=== PATIENT | female | born 1975 | race Caucasian/White ===

== ENCOUNTER 2017-10-04 18:04 | Emergency (ER) | payer BC ==
[2017-10-04] MEDS ORDERED: NA CHLORIDE 0.9% 2,000 ML ONE (18:38)
[2017-10-04] MEDS ORDERED: HYDROMORPHONE HCL 1 MG/ML INJ ONE ×2 (18:38→19:29)
[2017-10-04] MEDS ORDERED: ONDANSETRON 4 MG/2 ML VIAL ONE ×2 (18:38→19:29)
[2017-10-04] MEDS ORDERED: FAMOTIDINE 20 MG/2 ML VIAL IV ONE (18:38)
[2017-10-04 19:13] LABS: Urine Blood TRACE (NEG); Urine Glucose NEGATIVE (NEG); Urine Protein NEGATIVE (NEG); Urine Specific Gravity >1.030 (1.005-1.030); Urine pH 5.5 (5.0-7.0)
[2017-10-04 19:14] LABS: ALT/SGPT 50 U/L (12-78); AST/SGOT 36 U/L (15-37); Albumin 3.6 g/dL (3.4-5.0); Alkaline Phosphatase 115 U/L (45-117); Amylase Level 38 U/L (25-115); BUN Blood Urea Nitrogen 9 mg/dL (7-18); Bicarbonate 31 mmol/L (21-32); Bilirubin Direct < 0.1 mg/dL (0-0.2); Bilirubin Total 0.2 mg/dL (0.2-1.0); Glucose Level 98 mg/dL (74-106); Lipase 145 U/L (73-393); Potassium 3.5 mmol/L (3.5-5.1); Protein, Total 7.5 g/dL (6.4-8.2); Sodium Level 139 mmol/L (136-145)
[2017-10-04 19:16] LABS: Urine Amorphous Sediment TRACE /HPF (NONE SEEN); Urine Bacteria <20 /HPF (<20); Urine Culture Reflex Order NOT NEEDED; Urine Mucus SLIGHT /HPF (NONE SEEN); Urine RBC <5 /HPF (NONE SEEN)
[2017-10-04 19:20] LABS: Absolute Lymphocytes (CBC) 3.3 K/uL (0.7-4.9); Absolute Monocytes 0.7 K/uL (0.1-1.3); Basophils % 0.6 % (0-1.3); Eosinophils % 3.4 % (0-4.4); Lymphocytes % 39.5 % (15.3-44.8); MCH 28.2 pg (27.0-35.0); MCV 85.6 fL (80-100); MPV 9.8 fL (7.6-11.3); Monocytes % 8.6 % (3.3-12.3); RBC Red Blood Cell Count 4.09 M/uL (3.86-4.86)
--- NOTE | 2017-10-04 19:33 | EDPHYS ---
Physician Documentation [facility] Name: Misa Tuttle Age: 42 yrs Sex: Female : 1975 Arrival Date: 10/04/2017 Time: 18:06 Bed 18 Private MD: Rafat Rivera C ED Physician Carlos Pradhan HPI: 10/04 18:32 This 42 yrs old Female presents to ER via Ambulatory with complaints of kadeem Abdominal Pain. 18:32 The patient presents with abdominal pain in the epigastric area, in the left upper kadeem quadrant, in the left lower quadrant. Onset: The symptoms/episode began/occurred 3 day(s) ago. The patient presents to the emergency department with nausea, vomiting, abdominal pain, of the epigastric area, left upper quadrant and left lower quadrant. Onset: The symptoms/episode began/occurred 3 day(s) ago. Possible causes: unknown. The symptoms are aggravated by nothing. The symptoms are alleviated by nothing. Associated signs and symptoms: Pertinent positives: abdominal pain, nausea. The symptoms do not radiate. Modifying factors: The symptoms are alleviated by nothing, the symptoms are aggravated by. 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 - Social history:: Smoking status: Patient/guardian denies using tobacco. - Ebola Screening: : Patient negative for fever greater than or equal to 101.5 degrees Fahrenheit, and additional compatible Ebola Virus Disease symptoms Patient denies exposure to infectious person Patient denies travel to an Ebola-affected area in the 21 days before illness onset No symptoms or risks identified at this time. - Family history:: not pertinent. ROS: 18:32 Constitutional: Negative for fever, chills, and weight loss, Eyes: Negative for injury, kadeem pain, redness, and discharge, ENT: Negative for injury, pain, and discharge, Neck: Negative for injury, pain, and swelling, Cardiovascular: Negative for chest pain, palpitations, and edema, Respiratory: Negative for shortness of breath, cough, wheezing, and pleuritic chest pain, Back: Negative for injury and pain, : Negative for injury, bleeding, discharge, and swelling, MS/Extremity: Negative for injury and deformity, Skin: Negative for injury, rash, and discoloration, Neuro: Negative for headache, weakness, numbness, tingling, and seizure. 18:32 Abdomen/GI: Positive for abdominal pain, nausea, vomiting, of the epigastric area, left upper quadrant and left lower quadrant. Exam: 18:32 Constitutional: This is a well developed, well nourished patient who is awake, alert, kadeem and in no acute distress. Head/Face: Normocephalic, atraumatic. Eyes: Pupils equal round and reactive to light, extra-ocular motions intact. Lids and lashes normal. Conjunctiva and sclera are non-icteric and not injected. Cornea within normal limits. Periorbital areas with no swelling, redness, or edema. ENT: Nares patent. No nasal discharge, no septal abnormalities noted. Tympanic membranes are normal and external auditory canals are clear. Oropharynx with no redness, swelling, or masses, exudates, or evidence of obstruction, uvula midline. Mucous membranes moist. Neck: Trachea midline, no thyromegaly or masses palpated, and no cervical lymphadenopathy. Supple, full range of motion without nuchal rigidity, or vertebral point tenderness. No Meningismus. Chest/axilla: Normal chest wall appearance and motion. Nontender with no deformity. No lesions are appreciated. Cardiovascular: Regular rate and rhythm with a normal S1 and S2. No gallops, murmurs, or rubs. Normal PMI, no JVD. No pulse deficits. Respiratory: Lungs have equal breath sounds bilaterally, clear to auscultation and percussion. No rales, rhonchi or wheezes noted. No increased work of breathing, no retractions or nasal flaring. Back: No spinal tenderness. No costovertebral tenderness. Full range of motion. Female : Normal external genitalia. Skin: Warm, dry with normal turgor. Normal color with no rashes, no lesions, and no evidence of cellulitis. MS/ Extremity: Pulses equal, no cyanosis. Neurovascular intact. Full, normal range of motion. Neuro: Awake and alert, GCS 15, oriented to person, place, time, and situation. Cranial nerves II-XII grossly intact. Motor strength 5/5 in all extremities. Sensory grossly intact. Cerebellar exam normal. Normal gait. Psych: Awake, alert, with orientation to person, place and time. Behavior, mood, and affect are within normal limits. 18:32 Abdomen/GI: Inspection: abdomen appears normal, Bowel sounds: normal, Palpation: soft, moderate abdominal tenderness, in the epigastric area and left upper quadrant, Liver: no appreciated palpable abnormalities, Hernia: not appreciated. Vital Signs: 18:09 BP 127 / 88; Pulse 88; Resp 16; Temp 98.2; Pulse Ox 99% on R/A; Weight 74.84 kg; Height aj 5 ft. 4 in. (162.56 cm); 19:14 BP 118 / 73; Pulse 91; Resp 17 S; Pulse Ox 97% on R/A; jd3 20:48 BP 118 / 78; Pulse 83; Resp 17 S; Pulse Ox 97% on R/A; jd3 18:09 Body Mass Index 28.32 (74.84 kg, 162.56 cm) aj MDM: 18:13 [facility]. [facility] 18:37 Data reviewed: vital signs, nurses notes, lab test result(s), radiologic studies, CT kadeem scan. 10/04 18:14 Order name: Amylase, Serum; Complete Time: 19:32 [facility] 10/04 18:14 Order name: Basic Metabolic Panel; Complete Time: 19:32 [facility] 10/04 18:14 Order name: CBC with Diff; Complete Time: 19:32 [facility] 10/04 18:14 Order name: Creatinine for Radiology; Complete Time: 19:32 [facility] 10/04 18:14 Order name: Hepatic Function; Complete Time: 19:32 [facility] 10/04 18:14 Order name: Lipase; Complete Time: 19:32 [facility] 10/04 18:14 Order name: Urine Microscopic Only; Complete Time: 19:32 kadeem 10/04 18:56 Order name: Urine Dipstick--Ancillary (enter results); Complete Time: 19:32 bd 10/04 18:56 Order name: Urine --Ancillary (enter results); Complete Time: 19:32 10/04 18:14 Order name: Urine Test (obtain specimen); Complete Time: 18:47 [facility] 10/04 18:14 Order name: IV Saline Lock; Complete Time: 18:48 [facility] 10/04 18:14 Order name: Labs collected and sent; Complete Time: 18:48 [facility] 10/04 18:14 Order name: Urine Dipstick-Ancillary (obtain specimen); Complete Time: 18:48 [facility] Administered Medications: 18:47 Drug: Dilaudid 1 mg Route: IVP; Site: left antecubital; mg2 19:37 Follow up: Response: No adverse reaction jd3 18:47 Drug: Zofran 4 mg Route: IVP; Site: left antecubital; mg2 19:37 Follow up: Response: No adverse reaction jd3 18:47 Drug: Pepcid 20 mg Route: IVP; Site: left antecubital; mg2 19:37 Follow up: Response: No adverse reaction jd3 18:48 Drug: NS 0.9% 1000 ml Route: IV; Rate: 1 bolus; Site: left antecubital; mg2 19:37 Follow up: Response: No adverse reaction; IV Status: Completed infusion; IV Intake: jd3 1000ml 19:30 Drug: Zofran 4 mg Route: IVP; Site: left antecubital; jd3 20:49 Follow up: Response: No adverse reaction jd3 19:30 Drug: Dilaudid 1 mg Route: IVP; Site: left antecubital; jd3 20:49 Follow up: Response: No adverse reaction; Pain is decreased jd3 19:36 Drug: NS 0.9% 1000 ml Route: IV; Rate: 1 bolus; Site: left antecubital; jd3 20:49 Follow up: Response: No adverse reaction; IV Status: Completed infusion jd3 Disposition: 10/04/17 19:33 Discharged to Home. Impression: Abdominal tenderness. - Condition is Stable. - Discharge Instructions: Abdominal Pain, Adult, Nausea and Vomiting, Adult, Abdominal Pain, Adult, [id number]. - Prescriptions for Bentyl 20 mg Oral Tablet - take 1 tablet by ORAL route every 6 hours As needed; 20 tablet. Pepcid 20 mg Oral Tablet - take 1 tablet by ORAL route every 12 hours for 10 days; 20 tablet. Tylenol- Codeine #3 300-30 mg Oral Tablet - take 2 tablet by ORAL route every 6 hours As needed; 30 tablet. Zofran 4 mg Oral Tablet - take 1 tablet by ORAL route every 12 hours As needed; 20 tablet. - Medication Reconciliation Form, Thank You Letter, Antibiotic Education, Prescription Opioid Use form. - Follow up: A Rivera; When: 2 - 3 days; Reason: Recheck today's complaints, Continuance of care, Re-evaluation by your physician. Follow up: Johnair Huang; When: 2 - 3 days; Reason: Recheck today's complaints, Re-evaluation by your physician. - Problem is new. - Symptoms have improved. Signatures: Dispatcher [employer] EDMS Anjali Barton RN RN Carlos Castanon MD MD cha Davies, Jonathon, RN RN jJose Reynoso RN VINOD mg2 Corrections: (The following items were deleted from the chart) 20:50 19:33 10/04/2017 19:33 Discharged to Home. Impression: Abdominal tenderness. Condition jd3 is Stable. Discharge Instructions: Abdominal Pain, Adult, Nausea and Vomiting, Adult, Abdominal Pain, Adult, [id number]. Prescriptions for Bentyl 20 mg Oral Tablet - take 1 tablet by ORAL route every 6 hours As needed; 20 tablet, Pepcid 20 mg Oral Tablet - take 1 tablet by ORAL route every 12 hours for 10 days; 20 tablet, Tylenol-Codeine #3 300-30 mg Oral Tablet - take 2 tablet by ORAL route every 6 hours As needed; 30 tablet, Zofran 4 mg Oral Tablet - take 1 tablet by ORAL route every 12 hours As needed; 20 tablet. and Forms are Medication Reconciliation Form, Thank You Letter, Antibiotic Education, Prescription Opioid Use. Follow up: A Rivera; When: 2 - 3 days; Reason: Recheck today's complaints, Continuance of care, Re-evaluation by your physician. Follow up: John Huang; When: 2 - 3 days; Reason: Recheck today's complaints, Re-evaluation by your physician. Problem is new. Symptoms have improved. kadeem
--- NOTE | 2017-10-04 19:33 | ER ---
Nurse's Notes [facility] Name: Misa Tuttle Age: 42 yrs Sex: Female : 1975 Arrival Date: 10/04/2017 Time: 18:06 Bed 18 Private MD: Rafat Rivera C Diagnosis: Abdominal tenderness Presentation: 10/04 18:07 Presenting complaint: Patient states: LUQ abdominal pain for 5 days. N/V x 3 episodes aj today. Transition of care: patient was not received from another setting of care. Onset of symptoms was September 29, 2017. Risk Assessment: Do you want to hurt yourself or someone else? Patient reports no desire to harm self or others. Initial Sepsis Screen: Does the patient meet any 2 criteria? No. Patient's initial sepsis screen is negative. Does the patient have a suspected source of infection? No. Patient's initial sepsis screen is negative. Care prior to arrival: None. 18:07 Method Of Arrival: Ambulatory aj 18:07 Acuity: ELADIO 3 aj Triage Assessment: 18:09 General: Appears in no apparent distress. uncomfortable, Behavior is calm, cooperative, aj appropriate for age. Pain: Complains of pain in right upper quadrant and left upper quadrant. Neuro: Level of Consciousness is awake, alert, obeys commands, Oriented to person, place, time, situation, Appropriate for age. Respiratory: Airway is patent Respiratory effort is even, unlabored, Respiratory pattern is regular, symmetrical. GI: Reports upper abdominal pain, nausea, vomiting. Derm: Skin is intact, is healthy with good turgor, Skin is pink, warm \T\ dry. normal. 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 - Social history:: Smoking status: Patient/guardian denies using tobacco. - Ebola Screening: : Patient negative for fever greater than or equal to 101.5 degrees Fahrenheit, and additional compatible Ebola Virus Disease symptoms Patient denies exposure to infectious person Patient denies travel to an Ebola-affected area in the 21 days before illness onset No symptoms or risks identified at this time. - Family history:: not pertinent. Screenin:37 Abuse screen: Denies threats or abuse. Denies injuries from another. Nutritional mg2 screening: No deficits noted. Tuberculosis screening: No symptoms or risk factors identified. Fall Risk IV access (20 points). Assessment: 18:48 General: Appears uncomfortable, Behavior is calm, cooperative. Pain: Complains of pain mg2 in epigastric area and abdomen Pain does not radiate. Pain currently is 10 out of 10 on a pain scale. Quality of pain is described as aching, Pain began gradually, Is intermittent. Neuro: Level of Consciousness is awake, alert, obeys commands, Oriented to person, place, time, situation. Cardiovascular: Capillary refill < 3 seconds Patient's skin is warm and dry. Respiratory: Airway is patent Respiratory effort is even, unlabored, Respiratory pattern is regular, symmetrical. GI: Abdomen is round. : No signs and/or symptoms were reported regarding the genitourinary system. EENT: No signs and/or symptoms were reported regarding the EENT system. Derm: Skin is intact, Skin is pink, warm \T\ dry. normal. Musculoskeletal: No signs and/or symptoms reported regarding the musculoskeletal system. 19:15 Reassessment: Patient appears in no apparent distress at this time. No changes from jd3 previously documented assessment. Patient and/or family updated on plan of care and expected duration. Pain level reassessed. Patient is alert, oriented x 3, equal unlabored respirations, skin warm/dry/pink. 19:15 GI: Bowel sounds present X 4 quads. Abd is soft Abdomen is tender to palpation. jd3 19:44 Reassessment: Patient appears in no apparent distress at this time. No changes from jd3 previously documented assessment. Patient and/or family updated on plan of care and expected duration. Pain level reassessed. Patient is alert, oriented x 3, equal unlabored respirations, skin warm/dry/pink. waiting for fluids to infuse before pt is discharged. 20:47 Reassessment: Patient appears in no apparent distress at this time. Patient and/or jd3 family updated on plan of care and expected duration. Pain level reassessed. Patient is alert, oriented x 3, equal unlabored respirations, skin warm/dry/pink. Patient states feeling better. Vital Signs: 18:09 BP 127 / 88; Pulse 88; Resp 16; Temp 98.2; Pulse Ox 99% on R/A; Weight 74.84 kg; Height aj 5 ft. 4 in. (162.56 cm); 19:14 BP 118 / 73; Pulse 91; Resp 17 S; Pulse Ox 97% on R/A; jd3 20:48 BP 118 / 78; Pulse 83; Resp 17 S; Pulse Ox 97% on R/A; jd3 18:09 Body Mass Index 28.32 (74.84 kg, 162.56 cm) ED Course: 18:06 Patient arrived in ED. mr 18:06 Rafat Rivera MD is Private Physician. mr 18:08 Triage completed. aj 18:09 Arm band placed on right wrist. Patient placed in an exam room. 18:12 Carlos Pradhan MD is Attending Physician. [facility] 18:30 Jose Desai RN is Primary Nurse. mg2 18:46 Initial lab(s) drawn, by ne, sent to lab. Urine collected: clean catch specimen, silvino mh5 colored. Inserted saline lock: 20 gauge in left antecubital area, using aseptic technique. Blood collected. 18:47 Amylase, Serum Sent. 5 18:47 Basic Metabolic Panel Sent. 5 18:47 CBC with Diff Sent. 5 18:47 Creatinine for Radiology Sent. 5 18:47 Hepatic Function Sent. 5 18:47 Lipase Sent. 5 18:48 Urine Microscopic Only Sent. [facility] 19:32 Rafat Rivera MD is Referral Physician. [facility] 19:32 John Huang MD is Referral Physician. kadeem 19:45 Patient has correct armband on for positive identification. Bed in low position. Call jd3 light in reach. Side rails up X 1. 20:48 No provider procedures requiring assistance completed. IV discontinued, intact, jd3 bleeding controlled, No redness/swelling at site. Pressure dressing applied. Administered Medications: 18:47 Drug: Dilaudid 1 mg Route: IVP; Site: left antecubital; mg2 19:37 Follow up: Response: No adverse reaction jd3 18:47 Drug: Zofran 4 mg Route: IVP; Site: left antecubital; mg2 19:37 Follow up: Response: No adverse reaction jd3 18:47 Drug: Pepcid 20 mg Route: IVP; Site: left antecubital; mg2 19:37 Follow up: Response: No adverse reaction jd3 18:48 Drug: NS 0.9% 1000 ml Route: IV; Rate: 1 bolus; Site: left antecubital; mg2 19:37 Follow up: Response: No adverse reaction; IV Status: Completed infusion; IV Intake: jd3 1000ml 19:30 Drug: Zofran 4 mg Route: IVP; Site: left antecubital; jd3 20:49 Follow up: Response: No adverse reaction jd3 19:30 Drug: Dilaudid 1 mg Route: IVP; Site: left antecubital; jd3 20:49 Follow up: Response: No adverse reaction; Pain is decreased jd3 19:36 Drug: NS 0.9% 1000 ml Route: IV; Rate: 1 bolus; Site: left antecubital; jd3 20:49 Follow up: Response: No adverse reaction; IV Status: Completed infusion jd3 Intake: 19:37 IV: 1000ml; Total: 1000ml. jd3 Outcome: 19:33 Discharge ordered by MD. quan 20:49 Discharged to home ambulatory. jd3 20:49 Condition: stable 20:49 Discharge instructions given to patient, Instructed on discharge instructions, follow up and referral plans. medication usage, Demonstrated understanding of instructions, follow-up care, medications, Prescriptions given X 4. 20:50 Patient left the ED. jd3 Signatures: Anjali Barton RN RN aj Anderson, Corey, MD MD cha Rivera, Maria mr Martinez, Maria mh5 Davies, Jonathon, RN RN jJose Reynoso RN RN mg2
[2017-10-04 21:13] VITALS: TEMP 98.2
[2017-10-04 21:14] VITALS: O2SAT 97
[2017-10-04 21:15] VITALS: BP 118/78
== END 2017-10-04 20:50 | disposition home or self-care (01) ==
LOC: ER 18:04
DX: R10.819 Abdominal tenderness, unspecified site (principal); Z88.5 Allergy status to narcotic agent; I10 Essential (primary) hypertension; K21.9 Gastro-esophageal reflux disease without esophagitis; K85.90 Acute pancreatitis without necrosis or infection, unspecified
CPT/HCPCS: 36415; 80048; 80076; 81003; 81015; 81025; 82150; 83690; 85025; 96361; 96374; 96375; 99284; J1170; J2405; J7030

== ENCOUNTER 2017-10-27 08:44 | Emergency (ER) | payer BC ==
[2017-10-27] MEDS ORDERED: HYDROMORPHONE HCL 1 MG/ML INJ ONE (09:30)
[2017-10-27] MEDS ORDERED: NA CHLORIDE 0.9% 1,000 ML ONE (09:30)
[2017-10-27] MEDS ORDERED: ONDANSETRON 4 MG/2 ML VIAL ONE (09:30)
[2017-10-27] MEDS ORDERED: FAMOTIDINE 20 MG/2 ML VIAL IV ONE (09:31)
--- NOTE | 2017-10-27 09:44 | RAD REPORT ---
EXAM DESCRIPTION: RAD - Chest Single View - 10/27/2017 9:29 am CLINICAL HISTORY: ABDOMINAL DISTENTION Chest pain. COMPARISON: Abdomen Acute Series dated 10/15/2016; Abdomen 1 View (KUB) dated 10/02/2016; Abdomen 1 Vi ew (KUB) dated 07/01/2016; Chest Single View dated 04/22/2016 FINDINGS: Portable technique limits examination quality. The lungs are grossly clear. The heart is normal in size. No displaced fractures. IMPRESSION: No acute intrathoracic process suspected.
[2017-10-27 10:56] LABS: Absolute Lymphocytes (CBC) 3.3 K/uL (0.7-4.9); Absolute Monocytes 0.9 K/uL (0.1-1.3); Absolute Neutrophil 5.8 K/uL (1.8-8.0); Basophils % 0.4 % (0-1.3); Eosinophils % 3.1 % (0-4.4); Hematocrit 34.4 % (36.0-45.0); MCH 29.1 pg (27.0-35.0); MPV 9.6 fL (7.6-11.3); Monocytes % 8.9 % (3.3-12.3)
--- NOTE | 2017-10-27 11:00 | EKG ---
Test Date: 2017-10-27 Test Time: 09:33:44 [employer] Drier: REGINALDO MEASUREMENT RESULTS: Intervals: Rate: 85 ID: [id number] QRSD: 92 QT: 380 QTc: 452 [place]: P: 30 ID: [id number] QRS: 26 T: 15 INTERPRETIVE STATEMENTS: Normal sinus rhythm Normal ECG Compared to ECG 09/10/2016 18:15:10 No significant changes Electronically Signed On 10-27-17 10:59:42 CDT by Kj Barker
[2017-10-27 11:08] LABS: Protime INR 1.01
[2017-10-27 11:17] LABS: ALT/SGPT 35 U/L (12-78); AST/SGOT 18 U/L (15-37); Albumin 3.4 g/dL (3.4-5.0); Alkaline Phosphatase 108 U/L (45-117); BUN Blood Urea Nitrogen 6 mg/dL (7-18); Bicarbonate 32 mmol/L (21-32); Bilirubin Direct < 0.1 mg/dL (0-0.2); Bilirubin Total 0.3 mg/dL (0.2-1.0); CKMB Creatine Kinase MB < 1.0 ng/mL (0.3-3.6); Creatine Phosphokinase 81 U/L (26-192); Glucose Level 93 mg/dL (74-106); Lipase 130 U/L (73-393); NT PRO-BNP 12 pg/mL (<125); Potassium 3.6 mmol/L (3.5-5.1); Protein, Total 7.5 g/dL (6.4-8.2); Sodium Level 143 mmol/L (136-145); Troponin (Emerg Dept Use Only) < 0.02 ng/mL (0.0-0.045)
[2017-10-27] MEDS ORDERED: HYDROMORPHONE HCL 0.5 MG/0.5 ML INJ ONE (11:35)
[2017-10-27] MEDS ORDERED: DIPHENHYDRAMINE 50 MG/ML VIAL ONE (12:02)
--- NOTE | 2017-10-27 12:16 | RAD REPORT ---
EXAM DESCRIPTION: CTAbdomen Pelvis W Contrast - 10/27/2017 11:44 am CLINICAL HISTORY: Abdominal pain. ABD PAIN COMPARISON: Abdomen Pelvis W Contrast dated 06/08/2016; Abdomen Pelvis W Contrast dated 04/22/2016; Abdomen Pelvis W Contrast dated 10/20/2015; Abdomen Pelvis W Contrast dated 09/13/2015 TECHNIQUE: Biphasic CT imaging of the abdomen and pelvis was performed with 100 ml non-ionic IV cont rast. All CT scans are performed using dose optimization technique as appropriate and may include automated exposure control or mA/KV adjustment according to patient size. FINDINGS: The lung bases are clear. Diffuse fatty liver is present. Cholecystectomy clips are seen. Subtle diffuse fatty infiltration of the pancreas. The spleen, adrenal glands and kidneys are unremarkable. No bowel obstruction, free air, free fluid or abscess. The appendix is normal. No evidence of signi ficant lymphadenopathy. No suspicious bony findings. IMPRESSION: Mild fatty liver. Fatty infiltration of the pancreas.
--- NOTE | 2017-10-27 12:21 | EDPHYS ---
Physician Documentation [facility] Name: Misa Tuttle Age: 42 yrs Sex: Female : 1975 Arrival Date: 10/27/2017 Time: 08:48 Bed 19 Private MD: Arden Flores E ED Physician Carlos Pradhan HPI: 10/27 12:01 This 42 yrs old Female presents to ER via Ambulatory with complaints of kadeem Abdominal Pain, Bloody Stools. 12:01 The patient presents with abdominal pain. Onset: The symptoms/episode began/occurred kadeem yesterday. The patient presents to the emergency department with rectal bleeding, black. Onset: The symptoms/episode began/occurred 2 day(s) ago. Abdominal pain: none is appreciated. Modifying factors: The symptoms are alleviated by remaining still, the symptoms are aggravated by nothing. Associated signs and symptoms: The patient has no apparent associated signs or symptoms. Associated signs and symptoms: none. 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 - Social history:: Smoking status: Patient/guardian denies using tobacco. - Ebola Screening: : Patient negative for fever greater than or equal to 101.5 degrees Fahrenheit, and additional compatible Ebola Virus Disease symptoms Patient denies exposure to infectious person Patient denies travel to an Ebola-affected area in the 21 days before illness onset No symptoms or risks identified at this time. - Family history:: not pertinent. ROS: 12:01 Constitutional: Negative for fever, chills, and weight loss, Eyes: Negative for injury, kadeem pain, redness, and discharge, ENT: Negative for injury, pain, and discharge, Neck: Negative for injury, pain, and swelling, Cardiovascular: Negative for chest pain, palpitations, and edema, Respiratory: Negative for shortness of breath, cough, wheezing, and pleuritic chest pain, Back: Negative for injury and pain, : Negative for injury, bleeding, discharge, and swelling, MS/Extremity: Negative for injury and deformity, Skin: Negative for injury, rash, and discoloration, Neuro: Negative for headache, weakness, numbness, tingling, and seizure, Psych: Negative for depression, anxiety, suicide ideation, homicidal ideation, and hallucinations, Allergy/Immunology: Negative for hives, rash, and allergies, Endocrine: Negative for neck swelling, polydipsia, polyuria, polyphagia, and marked weight changes. 12:01 Abdomen/GI: Positive for abdominal pain, abdominal cramps, of the right upper quadrant, left upper quadrant, right lower quadrant and left lower quadrant. Exam: 12:01 Constitutional: This is a well developed, well nourished patient who is awake, alert, kadeem and in no acute distress. Head/Face: Normocephalic, atraumatic. Eyes: Pupils equal round and reactive to light, extra-ocular motions intact. Lids and lashes normal. Conjunctiva and sclera are non-icteric and not injected. Cornea within normal limits. Periorbital areas with no swelling, redness, or edema. ENT: Nares patent. No nasal discharge, no septal abnormalities noted. Tympanic membranes are normal and external auditory canals are clear. Oropharynx with no redness, swelling, or masses, exudates, or evidence of obstruction, uvula midline. Mucous membranes moist. Neck: Trachea midline, no thyromegaly or masses palpated, and no cervical lymphadenopathy. Supple, full range of motion without nuchal rigidity, or vertebral point tenderness. No Meningismus. Chest/axilla: Normal chest wall appearance and motion. Nontender with no deformity. No lesions are appreciated. Cardiovascular: Regular rate and rhythm with a normal S1 and S2. No gallops, murmurs, or rubs. Normal PMI, no JVD. No pulse deficits. Respiratory: Lungs have equal breath sounds bilaterally, clear to auscultation and percussion. No rales, rhonchi or wheezes noted. No increased work of breathing, no retractions or nasal flaring. Back: No spinal tenderness. No costovertebral tenderness. Full range of motion. Female : Normal external genitalia. Skin: Warm, dry with normal turgor. Normal color with no rashes, no lesions, and no evidence of cellulitis. MS/ Extremity: Pulses equal, no cyanosis. Neurovascular intact. Full, normal range of motion. Neuro: Awake and alert, GCS 15, oriented to person, place, time, and situation. Cranial nerves II-XII grossly intact. Motor strength 5/5 in all extremities. Sensory grossly intact. Cerebellar exam normal. Normal gait. Psych: Awake, alert, with orientation to person, place and time. Behavior, mood, and affect are within normal limits. 12:01 Abdomen/GI: Rectal exam: is unremarkable, rectal tone normal, Stool: guaiac negative, hemorrhoid(s), are not appreciated, mass, is not appreciated, swelling, is not appreciated, tenderness, is not appreciated. 12:17 Musculoskeletal/extremity: Exam is negative for Extremities: ROM: no acute changes, kadeem Circulation is intact in all extremities. Compartment Syndrome exam of affected extremity: is normal. DVT Exam: No signs of deep vein thrombosis. no pain, no swelling, no tenderness, negative Homans' sign noted on exam, no appreciated bluish discoloration, no erythema, no increased warmth. 12:25 Skin: injury, scratches in the perirectal areas, fingernail done it appears. [facility] Vital Signs: 09:11 BP 134 / 92; Pulse 94; Resp 16; Pulse Ox 96% on R/A; Weight 74.84 kg; Height 5 ft. 4 iw in. (162.56 cm); Pain 9/10; 09:45 BP 115 / 81; Pulse 72; Resp 18; Pulse Ox 100% ; sv 10:32 BP 131 / 87; Pulse 75; Resp 18; Pulse Ox 100% ; sv 11:23 BP 126 / 87; Pulse 86; Resp 18; Pulse Ox 98% ; sv 12:09 BP 125 / 82; Pulse 82; Resp 16; Pulse Ox 97% ; sv 13:00 BP 115 / 81; Pulse 77; Resp 18; Pulse Ox 100% ; sv 09:11 Body Mass Index 28.32 (74.84 kg, 162.56 cm) iw MDM: 09:08 Patient medically screened. [facility] 12:01 Data reviewed: vital signs, nurses notes, lab test result(s), EKG, radiologic studies, [facility] CT scan. 10/27 09:14 Order name: Basic Metabolic Panel; Complete Time: 11:43 [facility] 10/27 09:14 Order name: CBC with Diff; Complete Time: 11:43 [facility] 10/27 09:14 Order name: Ckmb; Complete Time: 11:43 [facility] 10/27 09:14 Order name: CPK; Complete Time: 11:43 [facility] 10/27 09:14 Order name: LFT's; Complete Time: 11:43 [facility] 10/27 09:14 Order name: Magnesium; Complete Time: 11:43 [facility] 10/27 09:14 Order name: NT PRO-BNP; Complete Time: 11:43 [facility] 10/27 09:14 Order name: PT-INR; Complete Time: 11:43 [facility] 10/27 09:14 Order name: Ptt, Activated; Complete Time: 11:43 [facility] 10/27 09:14 Order name: Troponin (emerg Dept Use Only); Complete Time: 11:43 [facility] 10/27 09:14 Order name: XRAY Chest (1 view); Complete Time: 11:43 [facility] 10/27 09:14 Order name: Lipase; Complete Time: 11:43 [facility] 10/27 10:55 Order name: Urine Dipstick--Ancillary (enter results) 10/27 11:59 Order name: Occult Blood--Ancillary bd 10/27 09:14 Order name: EKG; Complete Time: 09:15 [facility] 10/27 09:14 Order name: EKG - Nurse/Tech; Complete Time: 10:37 [facility] 10/27 09:14 Order name: IV Saline Lock; Complete Time: 10:38 [facility] 10/27 09:14 Order name: Labs collected and sent; Complete Time: 10:38 [facility] 10/27 09:14 Order name: O2 Per Protocol; Complete Time: 10:38 [facility] 10/27 09:14 Order name: O2 Sat Monitoring; Complete Time: 10:38 [facility] 10/27 09:14 Order name: CT Abd/Pelvis - W/Contrast; Complete Time: 12:20 [facility] 10/27 10:18 Order name: Labs - recollect needed; Complete Time: 10:37 bd Administered Medications: 09:35 Drug: NS 0.9% 1000 ml Route: IV; Rate: 1 bolus; Site: left antecubital; sv 09:35 Drug: Zofran 4 mg Route: IVP; Site: left antecubital; sv 10:00 Follow up: Response: No adverse reaction sv 09:37 Drug: Dilaudid 1 mg Route: IVP; Site: left antecubital; sv 10:00 Follow up: Response: No adverse reaction sv 09:39 Drug: Pepcid 20 mg Route: IVP; Site: left antecubital; sv 10:00 Follow up: Response: No adverse reaction sv 11:35 Drug: Dilaudid 0.5 mg Route: IVP; Site: left antecubital; sv 12:00 Drug: Benadryl 25 mg Route: IVP; Site: left antecubital; sv Disposition: 10/27/17 12:20 Discharged to Home. Impression: Abdominal tenderness, Gastrointestinal hemorrhage, unspecified. - Condition is Stable. - Discharge Instructions: Abdominal Pain, Adult, Gastritis, Adult, Gastritis, Adult, [id number], Abdominal Pain, Adult, Kpiy-[id number]. - Prescriptions for Bentyl 20 mg Oral Tablet - take 1 tablet by ORAL route every 6 hours As needed; 20 tablet. Protonix 40 mg Oral Tablet - take 1 tablet by ORAL route once daily; 30 tablet. Zofran 4 mg Oral Tablet - take 1 tablet by ORAL route every 12 hours As needed; 20 tablet. Tylenol- Codeine #3 300-30 mg Oral Tablet - take 2 tablets by ORAL route every 6 hours As needed; 20 tablet. - Work release form, Medication Reconciliation Form, Thank You Letter, Antibiotic Education, Prescription Opioid Use form. - Follow up: Arden Flores; When: 2 - 3 days; Reason: Recheck today's complaints, Continuance of care, Re-evaluation by your physician. Follow up: John Huang; When: 1 - 2 days; Reason: Recheck today's complaints, Continuance of care, Re-evaluation by your physician. - Problem is new. - Symptoms have improved. Signatures: Dispatcher [employer] EDMS Salome Camacho Stephanie, RN RN sv Anderson, Corey, MD MD cha Williams, Irene, RN RN iw Corrections: (The following items were deleted from the chart) 12:24 12:20 10/27/2017 12:20 Discharged to Home. Impression: Abdominal tenderness. Condition kadeem is Stable. Discharge Instructions: Abdominal Pain, Adult, Gastritis, Adult, Gastritis, Adult, [id number], Abdominal Pain, Adult, [id number]-[id number]. Prescriptions for Bentyl 20 mg Oral Tablet - take 1 tablet by ORAL route every 6 hours As needed; 20 tablet, Protonix 40 mg Oral Tablet - take 1 tablet by ORAL route once daily; 30 tablet, Zofran 4 mg Oral Tablet - take 1 tablet by ORAL route every 12 hours As needed; 20 tablet. and Forms are Medication Reconciliation Form, Thank You Letter, Antibiotic Education, Prescription Opioid Use. Follow up: Arden Flores; When: 2 - 3 days; Reason: Recheck today's complaints, Continuance of care, Re-evaluation by your physician. Follow up: John Huang; When: 1 - 2 days; Reason: Recheck today's complaints, Continuance of care, Re-evaluation by your physician. Problem is new. Symptoms have improved. [facility] 13:06 12:24 10/27/2017 12:20 Discharged to Home. Impression: Abdominal tenderness; sv Gastrointestinal hemorrhage, unspecified. Condition is Stable. Discharge Instructions: Abdominal Pain, Adult, Gastritis, Adult, Gastritis, Adult, [id number], Abdominal Pain, Adult, Omxp-yx-[id number]. Prescriptions for Bentyl 20 mg Oral Tablet - take 1 tablet by ORAL route every 6 hours As needed; 20 tablet, Protonix 40 mg Oral Tablet - take 1 tablet by ORAL route once daily; 30 tablet, Zofran 4 mg Oral Tablet - take 1 tablet by ORAL route every 12 hours As needed; 20 tablet. and Forms are Medication Reconciliation Form, Thank You Letter, Antibiotic Education, Prescription Opioid Use. Follow up: Arden Flores; When: 2 - 3 days; Reason: Recheck today's complaints, Continuance of care, Re-evaluation by your physician. Follow up: John Huang; When: 1 - 2 days; Reason: Recheck today's complaints, Continuance of care, Re-evaluation by your physician. Problem is new. Symptoms have improved. kadeem
--- NOTE | 2017-10-27 12:21 | ER ---
Nurse's Notes [facility] Name: Misa Tuttel Age: 42 yrs Sex: Female : 1975 Arrival Date: 10/27/2017 Time: 08:48 Bed 19 Private MD: Arden Flores E Diagnosis: Abdominal tenderness;Gastrointestinal hemorrhage, unspecified Presentation: 10/27 09:09 Presenting complaint: Patient states: RUQ pain, under rib cage started X 2 days, also iw has black, tarry stool X 2 days. Transition of care: patient was not received from another setting of care. Onset of symptoms was October 25, 2017. Risk Assessment: Do you want to hurt yourself or someone else? Patient reports no desire to harm self or others. Initial Sepsis Screen: Does the patient meet any 2 criteria? No. Patient's initial sepsis screen is negative. Does the patient have a suspected source of infection? No. Patient's initial sepsis screen is negative. Care prior to arrival: None. 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 - Social history:: Smoking status: Patient/guardian denies using tobacco. - Ebola Screening: : Patient negative for fever greater than or equal to 101.5 degrees Fahrenheit, and additional compatible Ebola Virus Disease symptoms Patient denies exposure to infectious person Patient denies travel to an Ebola-affected area in the 21 days before illness onset No symptoms or risks identified at this time. - Family history:: not pertinent. Screenin:30 Abuse screen: Denies threats or abuse. Denies injuries from another. Nutritional sv screening: No deficits noted. Tuberculosis screening: No symptoms or risk factors identified. Fall Risk None identified. Assessment: 09:25 General: Appears in no apparent distress. uncomfortable, well developed, Behavior is sv calm, cooperative, appropriate for age. Pain: Complains of pain in right upper quadrant Pain currently is 9 out of 10 on a pain scale. Quality of pain is described as sharp, Pain began 2-3 days ago. Is continuous. 09:25 Neuro: Level of Consciousness is awake, alert, obeys commands, Oriented to person, sv place, time, situation, Gait is steady, Speech is normal. Respiratory: Respiratory effort is even, unlabored, Respiratory pattern is regular, symmetrical. GI: Abdomen is flat, Reports upper abdominal pain, bloody stool, nausea. Derm: Skin is pink, warm \T\ dry. 11:35 Reassessment: Patient appears in no apparent distress at this time. No changes from sv previously documented assessment. Patient and/or family updated on plan of care and expected duration. Pain level reassessed. Patient is alert, oriented x 3, equal unlabored respirations, skin warm/dry/pink. 11:50 Reassessment: Informed Dr Pradhan that pt was c/o itching after the CT. sv 13:05 Reassessment: Patient appears in no apparent distress at this time. No changes from sv previously documented assessment. Patient and/or family updated on plan of care and expected duration. Pain level reassessed. Patient is alert, oriented x 3, equal unlabored respirations, skin warm/dry/pink. Vital Signs: 09:11 BP 134 / 92; Pulse 94; Resp 16; Pulse Ox 96% on R/A; Weight 74.84 kg; Height 5 ft. 4 iw in. (162.56 cm); Pain 9/10; 09:45 BP 115 / 81; Pulse 72; Resp 18; Pulse Ox 100% ; sv 10:32 BP 131 / 87; Pulse 75; Resp 18; Pulse Ox 100% ; sv 11:23 BP 126 / 87; Pulse 86; Resp 18; Pulse Ox 98% ; sv 12:09 BP 125 / 82; Pulse 82; Resp 16; Pulse Ox 97% ; sv 13:00 BP 115 / 81; Pulse 77; Resp 18; Pulse Ox 100% ; sv 09:11 Body Mass Index 28.32 (74.84 kg, 162.56 cm) iw ED Course: 08:48 Patient arrived in ED. mr 08:49 Arden Flores MD is Private Physician. mr 09:07 Carlos Pradhan MD is Attending Physician. kadeem 09:10 Triage completed. iw 09:11 Arm band placed on. iw 09:22 Kera Galarza, VINOD is Primary Nurse. sv 09:29 X-ray completed. Portable x-ray completed in exam room. jr1 09:30 XRAY Chest (1 view) In Process Unspecified. EDMS 09:30 Patient has correct armband on for positive identification. Placed in gown. Bed in low sv position. Adult w/ patient. Pulse ox on. NIBP on. Door closed. Warm blanket given. Head of bed elevated. 09:30 Initial lab(s) drawn, by me, sent to lab. Inserted saline lock: 20 gauge in left sv antecubital area, using aseptic technique. Blood collected. Flushed left antecubital with 5 ml normal saline. 09:42 EKG done, by development technologist. reviewed by Carlos Pradhan MD. at1 10:34 Urine collected: clean catch specimen, clear. mh5 11:13 Radiology exam delayed due to lab results not completed at this time. (BUN/Creatinine). vr 11:[address] via wheelchair. sv 11:44 CT Abd/Pelvis - W/Contrast In Process Unspecified. EDMS 12:20 Arden Flores MD is Referral Physician. kadeem 12:20 John Huang MD is Referral Physician. kadeem 12:49 IV discontinued, Pressure dressing applied. mh5 12:49 IV discontinued, intact, bleeding controlled, No redness/swelling at site. Pressure sv dressing applied. 13:04 No provider procedures requiring assistance completed. sv Administered Medications: 09:35 Drug: NS 0.9% 1000 ml Route: IV; Rate: 1 bolus; Site: left antecubital; sv 09:35 Drug: Zofran 4 mg Route: IVP; Site: left antecubital; sv 10:00 Follow up: Response: No adverse reaction sv 09:37 Drug: Dilaudid 1 mg Route: IVP; Site: left antecubital; sv 10:00 Follow up: Response: No adverse reaction sv 09:39 Drug: Pepcid 20 mg Route: IVP; Site: left antecubital; sv 10:00 Follow up: Response: No adverse reaction sv 11:35 Drug: Dilaudid 0.5 mg Route: IVP; Site: left antecubital; sv 12:00 Drug: Benadryl 25 mg Route: IVP; Site: left antecubital; sv Outcome: 12:20 Discharge ordered by . kadeem 13:05 Discharged to home ambulatory, with family. sv 13:05 Condition: stable 13:05 Discharge instructions given to patient, Instructed on discharge instructions, follow up and referral plans. medication usage, Demonstrated understanding of instructions, follow-up care, medications, Prescriptions given X 4. 13:06 Patient left the ED. sv Signatures: Dispatcher [employer] Kera Ramírez RN RN sv Anderson, Corey, MD MD cha Rivera, Komal mr Daisy, Candace jr1 Hilda Chairez RN RN iw Davis, Victoria vr Gonzales, Amanda, sales and distribution clerk EKG [facility]1 Komal Martinez [facility] Corrections: (The following items were deleted from the chart) 14:41 09:25 Pain: Complains of pain in right upper quadrant Pain currently is 9 out of 10 on sv a pain scale. sv
[2017-10-27 12:23] LABS: Urine Blood TRACE (NEG); Urine Glucose NEGATIVE (NEG); Urine Protein NEGATIVE (NEG); Urine Specific Gravity <1.005 (1.005-1.030); Urine pH 5.5 (5.0-7.0)
[2017-10-27 13:28] VITALS: BP 125/82; O2SAT 97
== END 2017-10-27 13:06 | disposition home or self-care (01) ==
LOC: ER 08:44
DX: K92.2 Gastrointestinal hemorrhage, unspecified (principal); I10 Essential (primary) hypertension; K21.9 Gastro-esophageal reflux disease without esophagitis; Z88.5 Allergy status to narcotic agent
CPT/HCPCS: 36415; 71045; 74177; 80048; 80076; 81003; 82272; 82550; 82553; 83690; 83735; 83880; 84484; 85025; 85610; 85730; 93005; 96374; 96375; 99285; J1170; J2405; J7030; Q9967

== ENCOUNTER 2018-05-30 12:36 | Emergency (ER) | payer BC ==
[2018-05-30] MEDS ORDERED: METOCLOPRAMIDE 10 MG/2mL INJ ONE (13:13)
[2018-05-30] MEDS ORDERED: FAMOTIDINE 20 MG/2 ML VIAL IV ONE (13:13)
[2018-05-30] MEDS ORDERED: NA CHLORIDE 0.9% 1,000 ML ONE (13:13)
[2018-05-30 13:25] LABS: Urine Blood TRACE (NEG); Urine Glucose NEGATIVE (NEG); Urine Protein NEGATIVE (NEG); Urine pH 6.5 (5.0-7.0)
[2018-05-30 13:29] LABS: Absolute Lymphocytes (CBC) 2.8 K/uL (0.7-4.9); Absolute Monocytes 0.6 K/uL (0.1-1.3); Absolute Neutrophil 3.2 K/uL (1.8-8.0); Basophils % 0.5 % (0-1.3); Eosinophils % 3.2 % (0-4.4); Hematocrit 37.7 % (36.0-45.0); Lymphocytes % 40.9 % (15.3-44.8); MPV 9.8 fL (7.6-11.3); Monocytes % 8.3 % (3.3-12.3); RBC Red Blood Cell Count 4.19 M/uL (3.86-4.86)
[2018-05-30 13:52] LABS: Albumin 3.7 g/dL (3.4-5.0); Bilirubin Direct 0.1 mg/dL (0-0.2); Bilirubin Total 0.4 mg/dL (0.2-1.0); Potassium 3.6 mmol/L (3.5-5.1); Protein, Total 7.6 g/dL (6.4-8.2)
[2018-05-30] MEDS ORDERED: HYDROMORPHONE HCL 1 MG/ML INJ ONE ×2 (14:32→15:49)
--- NOTE | 2018-05-30 15:11 | ER ---
Nurse's Notes [facility] Name: Misa Tuttle Age: 42 yrs Sex: Female : 1975 Arrival Date: 05/30/2018 Time: 12:38 Bed 16 Private MD: Rafat Rivera C Diagnosis: Vomiting;Abdominal tenderness;Gastroparesis Presentation: 05/30 12:42 Presenting complaint: Patient states: upper abd pain and nausea since . Pt aa5 denies diarrhea. Transition of care: patient was not received from another setting of care. Onset of symptoms was May 2018. Risk Assessment: Do you want to hurt yourself or someone else? Patient reports no desire to harm self or others. Initial Sepsis Screen: Does the patient meet any 2 criteria? No. Patient's initial sepsis screen is negative. Does the patient have a suspected source of infection? No. Patient's initial sepsis screen is negative. Care prior to arrival: None. 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 - Social history:: Smoking status: Patient/guardian denies using tobacco. - Ebola Screening: : No symptoms or risks identified at this time. - Family history:: not pertinent. Assessment: 13:15 General: Appears in no apparent distress. uncomfortable, Behavior is cooperative, jl7 anxious. Pain: Complains of pain in epigastric area Pain currently is 9 out of 10 on a pain scale. Neuro: Level of Consciousness is awake, alert, obeys commands, Oriented to person, place, time, situation. Cardiovascular: Patient's skin is warm and dry. Respiratory: Airway is patent Respiratory effort is even, unlabored, Respiratory pattern is regular, symmetrical. GI: Abdomen is round non-distended, Reports upper abdominal pain. : No signs and/or symptoms were reported regarding the genitourinary system. EENT: No signs and/or symptoms were reported regarding the EENT system. Derm: Skin is pink, warm \T\ dry. 14:00 Reassessment: Pt reports increased pain, ERD notified and will be to see the pt. Pt jl7 updated. 15:00 Reassessment: Patient appears in no apparent distress at this time. No changes from jl7 previously documented assessment. Patient and/or family updated on plan of care and expected duration. Pain level reassessed. Patient is alert, oriented x 3, equal unlabored respirations, skin warm/dry/pink. Vital Signs: 12:43 BP 129 / 83; Pulse 78; Resp 16 S; Temp 98.7(TE); Pulse Ox 97% on R/A; Weight 79.38 kg aa5 (R); Height 5 ft. 5 in. (165.10 cm) (R); Pain 9/10; 14:21 BP 102 / 63; Pulse 66; Resp 18; Temp 97.8(O); Pulse Ox 100% ; Pain 9/10; 5 14:31 BP 101 / 67; Pulse 62; Resp 16 S; Pulse Ox 99% on R/A; jl7 15:06 BP 149 / 79; Pulse 64; Resp 20; Pulse Ox 100% on R/A; 5 15:47 BP 122 / 86; Pulse 66; Resp 16; Pulse Ox 98% ; Pain 5/10; jl7 12:43 Body Mass Index 29.12 (79.38 kg, 165.10 cm) [facility] ED Course: 12:38 Patient arrived in ED. as 12:38 Rafat Rivera MD is Private Physician. as 12:42 Arm band placed on. [facility] 12:43 Triage completed. [facility] 12:47 Jennifer Baltazar RN is Primary Nurse. jl7 12:47 Carlos Pradhan MD is Attending Physician. [facility] 13:00 Urine collected: clean catch specimen, clear. [facility] 13:01 Patient has correct armband on for positive identification. Bed in low position. Call [facility] light in reach. Adult w/ patient. Warm blanket given. Pulse ox on. NIBP on. 13:08 Initial lab(s) drawn, by me, sent to lab. Inserted saline lock: 22 gauge in left em forearm, using aseptic technique. Blood collected. 14:55 X-ray completed. Patient tolerated procedure well. Patient moved to radiology via la2 wheelchair. Patient moved back from radiology. 14:59 Abdomen Acute Series XRAY In Process Unspecified. EDMS 15:10 Rafat Rivera MD is Referral Physician. [facility] Administered Medications: 13:02 Drug: Pepcid 20 mg Route: IVP; Site: left forearm; ss 14:00 Follow up: Response: No adverse reaction jl7 13:08 Drug: Reglan 10 mg Route: IVP; Site: left forearm; ss 14:00 Follow up: Response: No adverse reaction; No change in condition jl7 13:10 Drug: NS 0.9% 1000 ml Route: IV; Rate: 1 bolus; Site: left forearm; ss 14:00 Follow up: IV Status: Completed infusion; IV Intake: 1000ml jl7 14:20 Drug: Dilaudid 1 mg Route: IVP; Site: left antecubital; jl7 15:00 Follow up: Response: No adverse reaction; Pain is unchanged, physician notified jl7 15:40 Drug: Dilaudid 1 mg Route: IVP; Site: left forearm; jl7 15:47 Follow up: Response: No adverse reaction; Pain is decreased jl7 Intake: 14:00 IV: 1000ml; Total: 1000ml. jl7 Outcome: 15:10 Discharge ordered by . [facility] 15:48 Patient left the ED. jl7 Signatures: Dispatcher [employer] Carlos Lopez MD MD cha Munoz, Edgar, COREMAKER APPRENTICE COREMAKER APPRENTICE Shital Arechiga Audri, RN RN aa5 Kimberlee Brandt RN RN ss Martinez, Maria Jennifer Coronel RN RN jl7 Kyra Amezcua [facility]
--- NOTE | 2018-05-30 15:11 | EDPHYS ---
Physician Documentation [facility] Name: Misa Tuttle Age: 42 yrs Sex: Female : 1975 Arrival Date: 05/30/2018 Time: 12:38 Bed 16 Private MD: Rafat Rivera C ED Physician Carlos Pradhan HPI: 05/30 14:03 This 42 yrs old Female presents to ER via Ambulatory with complaints of kadeem Epigastric Pain. 14:03 The patient presents with abdominal pain in the epigastric area, in the upper abdomen. kadeem Onset: The symptoms/episode began/occurred 3 day(s) ago. The patient presents to the emergency department with nausea, vomiting, abdominal pain, of the epigastric area, right upper quadrant and left upper quadrant. Onset: The symptoms/episode began/occurred 3 day(s) ago. Possible causes: unknown. The symptoms are aggravated by movement, pressure, food , The symptoms are alleviated by nothing. remaining still. Associated signs and symptoms: The patient has no apparent associated signs or symptoms. Associated signs and symptoms: none. 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 - Social history:: Smoking status: Patient/guardian denies using tobacco. - Ebola Screening: : No symptoms or risks identified at this time. - Family history:: not pertinent. ROS: 14:03 Constitutional: Negative for fever, chills, and weight loss, Eyes: Negative for injury, kadeem pain, redness, and discharge, ENT: Negative for injury, pain, and discharge, Neck: Negative for injury, pain, and swelling, Cardiovascular: Negative for chest pain, palpitations, and edema, Respiratory: Negative for shortness of breath, cough, wheezing, and pleuritic chest pain, Back: Negative for injury and pain, : Negative for injury, bleeding, discharge, and swelling, MS/Extremity: Negative for injury and deformity, Skin: Negative for injury, rash, and discoloration, Neuro: Negative for headache, weakness, numbness, tingling, and seizure, Psych: Negative for depression, anxiety, suicide ideation, homicidal ideation, and hallucinations, Allergy/Immunology: Negative for hives, rash, and allergies, Endocrine: Negative for neck swelling, polydipsia, polyuria, polyphagia, and marked weight changes. 14:03 Abdomen/GI: Positive for abdominal pain, nausea and vomiting, of the epigastric area, right upper quadrant and left upper quadrant. Exam: 14:05 Constitutional: This is a well developed, well nourished patient who is awake, alert, kadeem and in no acute distress. Head/Face: Normocephalic, atraumatic. Eyes: Pupils equal round and reactive to light, extra-ocular motions intact. Lids and lashes normal. Conjunctiva and sclera are non-icteric and not injected. Cornea within normal limits. Periorbital areas with no swelling, redness, or edema. ENT: Nares patent. No nasal discharge, no septal abnormalities noted. Tympanic membranes are normal and external auditory canals are clear. Oropharynx with no redness, swelling, or masses, exudates, or evidence of obstruction, uvula midline. Mucous membranes moist. Neck: Trachea midline, no thyromegaly or masses palpated, and no cervical lymphadenopathy. Supple, full range of motion without nuchal rigidity, or vertebral point tenderness. No Meningismus. Chest/axilla: Normal chest wall appearance and motion. Nontender with no deformity. No lesions are appreciated. Cardiovascular: Regular rate and rhythm with a normal S1 and S2. No gallops, murmurs, or rubs. Normal PMI, no JVD. No pulse deficits. Respiratory: Lungs have equal breath sounds bilaterally, clear to auscultation and percussion. No rales, rhonchi or wheezes noted. No increased work of breathing, no retractions or nasal flaring. Back: No spinal tenderness. No costovertebral tenderness. Full range of motion. Female : Normal external genitalia. Skin: Warm, dry with normal turgor. Normal color with no rashes, no lesions, and no evidence of cellulitis. MS/ Extremity: Pulses equal, no cyanosis. Neurovascular intact. Full, normal range of motion. Neuro: Awake and alert, GCS 15, oriented to person, place, time, and situation. Cranial nerves II-XII grossly intact. Motor strength 5/5 in all extremities. Sensory grossly intact. Cerebellar exam normal. Normal gait. Psych: Awake, alert, with orientation to person, place and time. Behavior, mood, and affect are within normal limits. 14:05 Abdomen/GI: Inspection: abdomen appears normal, Bowel sounds: normal, Palpation: mild abdominal tenderness, in the epigastric area, right upper quadrant and left upper quadrant, Liver: no appreciated palpable abnormalities, Hernia: not appreciated. Vital Signs: 12:43 BP 129 / 83; Pulse 78; Resp 16 S; Temp 98.7(TE); Pulse Ox 97% on R/A; Weight 79.38 kg aa5 (R); Height 5 ft. 5 in. (165.10 cm) (R); Pain 9/10; 14:21 BP 102 / 63; Pulse 66; Resp 18; Temp 97.8(O); Pulse Ox 100% ; Pain 9/10; mh5 14:31 BP 101 / 67; Pulse 62; Resp 16 S; Pulse Ox 99% on R/A; jl7 15:06 BP 149 / 79; Pulse 64; Resp 20; Pulse Ox 100% on R/A; mh5 15:47 BP 122 / 86; Pulse 66; Resp 16; Pulse Ox 98% ; Pain 5/10; jl7 12:43 Body Mass Index 29.12 (79.38 kg, 165.10 cm) aa5 MDM: 12:47 Patient medically screened. [facility] 14:06 Data reviewed: vital signs, nurses notes, lab test result(s), radiologic studies. [facility] 05/30 12:48 Order name: Basic Metabolic Panel; Complete Time: 13:59 [facility] 05/30 12:48 Order name: CBC with Diff; Complete Time: 13:59 [facility] 05/30 12:48 Order name: Creatinine for Radiology; Complete Time: 13:59 [facility] 05/30 12:48 Order name: Hepatic Function; Complete Time: 13:59 [facility] 05/30 12:48 Order name: Lipase; Complete Time: 13:59 [facility] 05/30 13:02 Order name: Urine Dipstick--Ancillary (enter results) 05/30 12:48 Order name: IV Saline Lock; Complete Time: 13:08 [facility] 05/30 13:02 Order name: Urine --Ancillary (enter results) 05/30 14:03 Order name: Abdomen Acute Series XRAY [facility] 05/30 12:48 Order name: Labs collected and sent; Complete Time: 13:07 [facility] 05/30 12:48 Order name: Urine Dipstick-Ancillary (obtain specimen); Complete Time: 13:00 [facility] Administered Medications: 13:02 Drug: Pepcid 20 mg Route: IVP; Site: left forearm; ss 14:00 Follow up: Response: No adverse reaction jl7 13:08 Drug: Reglan 10 mg Route: IVP; Site: left forearm; ss 14:00 Follow up: Response: No adverse reaction; No change in condition jl7 13:10 Drug: NS 0.9% 1000 ml Route: IV; Rate: 1 bolus; Site: left forearm; ss 14:00 Follow up: IV Status: Completed infusion; IV Intake: 1000ml jl7 14:20 Drug: Dilaudid 1 mg Route: IVP; Site: left antecubital; jl7 15:00 Follow up: Response: No adverse reaction; Pain is unchanged, physician notified jl7 15:40 Drug: Dilaudid 1 mg Route: IVP; Site: left forearm; jl7 15:47 Follow up: Response: No adverse reaction; Pain is decreased jl7 Disposition: 05/30/18 15:10 Discharged to Home. Impression: Vomiting, Abdominal tenderness, Gastroparesis. - Condition is Stable. - Discharge Instructions: Abdominal Pain, Adult, Nausea and Vomiting, Adult, Nausea and Vomiting, Adult, [id number]-[id number]-[id number], Abdominal Pain, Adult, [id number]. - Prescriptions for Bentyl 20 mg Oral Tablet - take 1 tablet by ORAL route every 6 hours As needed; 20 tablet. Pepcid 20 mg Oral Tablet - take 1 tablet by ORAL route every 12 hours for 10 days; 20 tablet. Tylenol- Codeine #3 300-30 mg Oral Tablet - take 2 tablets by ORAL route every 6 hours As needed; 20 tablet. Zofran 4 mg Oral Tablet - take 1 tablet by ORAL route every 12 hours As needed; 20 tablet. - Medication Reconciliation Form, Thank You Letter, Antibiotic Education, Prescription Opioid Use form. - Follow up: A Rivera; When: 2 - 3 days; Reason: Recheck today's complaints, Continuance of care, Re-evaluation by your physician. - Problem is new. - Symptoms have improved. Signatures: Dispatcher [employer] EDCarlos Sung MD MD cha Calderon, Audri, RN RN aa5 Kimberlee Brandt, RN RN ss Jennifer Baltazar RN RN jl7 Corrections: (The following items were deleted from the chart) 15:48 15:10 05/30/2018 15:10 Discharged to Home. Impression: Vomiting; Abdominal tenderness; jl7 Gastroparesis. Condition is Stable. Discharge Instructions: Abdominal Pain, Adult, Nausea and Vomiting, Adult, Nausea and Vomiting, Adult, [id number], Abdominal Pain, Adult, [id number]. Prescriptions for Bentyl 20 mg Oral Tablet - take 1 tablet by ORAL route every 6 hours As needed; 20 tablet, Pepcid 20 mg Oral Tablet - take 1 tablet by ORAL route every 12 hours for 10 days; 20 tablet, Tylenol-Codeine #3 300-30 mg Oral Tablet - take 2 tablets by ORAL route every 6 hours As needed; 20 tablet, Zofran 4 mg Oral Tablet - take 1 tablet by ORAL route every 12 hours As needed; 20 tablet. and Forms are Medication Reconciliation Form, Thank You Letter, Antibiotic Education, Prescription Opioid Use. Follow up: A Rivera; When: 2 - 3 days; Reason: Recheck today's complaints, Continuance of care, Re-evaluation by your physician. Problem is new. Symptoms have improved. kadeem
--- NOTE | 2018-05-30 15:38 | RAD REPORT ---
EXAM DESCRIPTION: RAD - Abdomen Acute Series - 05/30/2018 2:59 pm CLINICAL HISTORY: Abdominal pain, nausea, shortness of breath COMPARISON: Chest film October 2017, CT imaging October 2017 FINDINGS: Lungs are clear. Heart size and pulmonary vasculature are normal. No pleural effusion, pne umothorax or other acute cardiopulmonary process seen. Large amount of stool is present filling but not dilating the colon, sparing only the distal rectum. No bowel obstruction, free air or other acute findings. Pelvic phleboliths are present. No history to indicate obstructing renal calculus. Cholecystectomy clips are present. No other suspicious for significant findings. IMPRESSION: Large stool volume filling but not dilating the majority of the colon. No obstruction, free air or emergent finding. No acute chest finding.
[2018-05-30 16:13] VITALS: TEMP 97.8
[2018-05-30 16:17] VITALS: BP 122/86; O2SAT 98
== END 2018-05-30 15:48 | disposition home or self-care (01) ==
LOC: ER 12:36
DX: K31.84 Gastroparesis (principal); R11.10 Vomiting, unspecified; I10 Essential (primary) hypertension; Z88.5 Allergy status to narcotic agent
CPT/HCPCS: 36415; 74022; 80048; 80076; 81003; 81025; 83690; 85025; 99284; J1170; J2765; J7030

== ENCOUNTER 2018-06-07 19:21 | Emergency (ER) | payer BC ==
--- NOTE | 2018-06-07 20:44 | RAD REPORT ---
EXAM DESCRIPTION: US - UPPER EXTREMITY VENOUS UNILATE - 06/07/2018 8:35 pm CLINICAL HISTORY: PAIN Arm pain and swelling COMPARISON: Extrem Venous W Compress Tono dated 11/02/2017 FINDINGS: Right upper extremity venous system was interrogated with Doppler technique. Normal flow, compressibility and augmentation was noted. There is no DVT present. IMPRESSION: No evidence of right upper extremity deep venous thrombosis.
[2018-06-07] MEDS ORDERED: HYDROCODONE/APAP 10/325 TAB ONE (20:50)
[2018-06-07] MEDS ORDERED: KETOROLAC 30 MG/ML INJ ONE (22:06)
--- NOTE | 2018-06-07 23:26 | EDPHYS ---
Physician Documentation [facility] Name: Misa Tuttle Age: 42 yrs Sex: Female : 1975 Arrival Date: 06/07/2018 Time: 19:23 Bed 24 Private MD: ED Physician Omar Montenegro HPI: 06/07 21:06 This 42 yrs old Female presents to ER via Ambulatory with complaints of R Arm gs Pain. 21:06 The patient or guardian complains of pain, that is acute. The complaints affect the gs right bicep, dorsal aspect of right forearm and right tricep. Onset: The symptoms/episode began/occurred acutely, 1 week(s) ago. Modifying factors: the symptoms are aggravated by movement. Associated signs and symptoms: Pertinent positives: tingling, Pertinent negatives: deformity, erythema, fever, swelling. Severity of symptoms: At their worst the symptoms were severe, in the emergency department the symptoms are unchanged. The patient has experienced a previous episode, dx with dvt. 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 - Social history:: Smoking status: Patient/guardian denies using tobacco. - Ebola Screening: : No symptoms or risks identified at this time. ROS: 21:06 All other systems are negative. gs Exam: 21:06 Head/Face: Normocephalic, atraumatic. Eyes: Pupils equal round and reactive to light, gs extra-ocular motions intact. Lids and lashes normal. Conjunctiva and sclera are non-icteric and not injected. Cornea within normal limits. Periorbital areas with no swelling, redness, or edema. ENT: Nares patent. No nasal discharge, no septal abnormalities noted. Tympanic membranes are normal and external auditory canals are clear. Oropharynx with no redness, swelling, or masses, exudates, or evidence of obstruction, uvula midline. Mucous membranes moist. Neck: Trachea midline, no thyromegaly or masses palpated, and no cervical lymphadenopathy. Supple, full range of motion without nuchal rigidity, or vertebral point tenderness. No Meningismus. Chest/axilla: Normal chest wall appearance and motion. Nontender with no deformity. No lesions are appreciated. Cardiovascular: Regular rate and rhythm with a normal S1 and S2. No gallops, murmurs, or rubs. Normal PMI, no JVD. No pulse deficits. Respiratory: Lungs have equal breath sounds bilaterally, clear to auscultation and percussion. No rales, rhonchi or wheezes noted. No increased work of breathing, no retractions or nasal flaring. Abdomen/GI: Soft, non-tender, with normal bowel sounds. No distension or tympany. No guarding or rebound. No evidence of tenderness throughout. Back: No spinal tenderness. No costovertebral tenderness. Full range of motion. Skin: Warm, dry with normal turgor. Normal color with no rashes, no lesions, and no evidence of cellulitis. Neuro: Awake and alert, GCS 15, oriented to person, place, time, and situation. Cranial nerves II-XII grossly intact. Motor strength 5/5 in all extremities. Sensory grossly intact. Cerebellar exam normal. Normal gait. 21:06 Constitutional: The patient appears alert, awake. 21:06 Constitutional: The patient appears uncomfortable. 21:06 Musculoskeletal/extremity: Extremities: noted in the right tricep and dorsal aspect of right forearm and right bicep: tenderness, There is no evidence of erythema, swelling, Pulses: are normal with no appreciated deficits, Perfusion: the patient is normally perfused throughout. Vital Signs: 19:40 BP 139 / 92; Pulse 77; Resp 18; Temp 98.1(O); Pulse Ox 100% on R/A; Weight 81.65 kg; lp1 Height 5 ft. 5 in. (165.10 cm); Pain 8/10; 21:26 Pain 9/10; ed1 21:28 BP 131 / 83; Pulse 77; Resp 18; Pulse Ox 98% on R/A; Pain 9/10; ed1 22:28 BP 124 / 86; Pulse 71; Resp 18; Pulse Ox 97% on R/A; Pain 9/10; ed1 19:40 Body Mass Index 29.95 (81.65 kg, 165.10 cm) lp1 MDM: 20:04 Patient medically screened. 21:06 Differential diagnosis: closed fracture, dvy, tendonitis. Data reviewed: vital signs, gs nurses notes. Data reviewed: lab test result(s). Counseling: I had a detailed discussion with the patient and/or guardian regarding: the historical points, exam findings, and any diagnostic results supporting the discharge/admit diagnosis, radiology results. Response to treatment: the patient's symptoms have markedly improved after treatment, and as a result, I will discharge patient. 06/07 20:00 Order name: UPPER EXTREMITY VENOUS UNILATE; Complete Time: 20:55 EDMS Administered Medications: 20:39 Drug: [place] 10 mg-325 mg 1 tabs Route: PO; ed1 21:26 Follow up: Pain 9/10 Adult; Response: No adverse reaction; Pain is unchanged, physician ed1 notified 21:57 Drug: TORadol 30 mg Route: IM; Site: left deltoid; ed1 22:39 Follow up: Response: No adverse reaction; Pain is unchanged, physician notified ed1 Disposition: 06/07/18 23:25 Discharged to Home. Impression: Pain in right upper arm. - Condition is Stable. - Discharge Instructions: Musculoskeletal Pain. - Prescriptions for Naprosyn 500 mg Oral Tablet - take 1 tablet by ORAL route 2 times per day take with food; 20 tablet. - Medication Reconciliation Form, Thank You Letter, Antibiotic Education, Prescription Opioid Use form. - Follow up: Mark Mcneil MD; When: 2 - 3 days; Reason: Re-evaluation by your physician. Signatures: Dispatcher [employer] [facility] Bita Padilla RN RN ed1 Lynne Sharma, VINOD RN lp1 Omar Montenegro MD MD Corrections: (The following items were deleted from the chart) 20:00 19:57 Extremity Venous Uni [email or web address] ordered. [facility] 23:31 23:25 06/07/2018 23:25 Discharged to Home. Impression: Pain in right upper arm. ed1 Condition is Stable. Forms are Medication Reconciliation Form, Thank You Letter, Antibiotic Education, Prescription Opioid Use. Follow up: Mark Mcneil; When: 2 - 3 days; Reason: Re-evaluation by your physician. gs
--- NOTE | 2018-06-07 23:26 | ER ---
Nurse's Notes [facility] Name: Misa Tuttle Age: 42 yrs Sex: Female : 1975 Arrival Date: 06/07/2018 Time: 19:23 Bed 24 Private MD: Diagnosis: Pain in right upper arm Presentation: 06/07 19:37 Presenting complaint: Patient states: "For the past 2 weeks both of my arms have been lp1 hurting but in the last 24 hours my right arm has been hurting a lot and it feels like it did when I had a DVT 4 years ago"; States pain and numbness to right arm, ROM intact. Transition of care: patient was not received from another setting of care. Onset of symptoms was June 06, 2018. Risk Assessment: Do you want to hurt yourself or someone else? Patient reports no desire to harm self or others. Initial Sepsis Screen: Does the patient meet any 2 criteria? No. Patient's initial sepsis screen is negative. Does the patient have a suspected source of infection? No. Patient's initial sepsis screen is negative. Care prior to arrival: None. 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 - Social history:: Smoking status: Patient/guardian denies using tobacco. - Ebola Screening: : No symptoms or risks identified at this time. Screenin:39 Abuse screen: Denies threats or abuse. Denies injuries from another. Nutritional ed1 screening: No deficits noted. Tuberculosis screening: No symptoms or risk factors identified. Fall Risk None identified. Assessment: 19:39 General: Appears in no apparent distress. Behavior is calm, cooperative. Pain: ed1 Complains of pain in right arm Pain currently is 8 out of 10 on a pain scale. Quality of pain is described as sharp, Pain began about 2 weeks ago Is continuous. Neuro: Level of Consciousness is awake, alert, obeys commands, Oriented to person, place, time, situation. Cardiovascular: Denies chest pain, Heart tones S1 S2 present. Respiratory: Airway is patent Respiratory effort is even, unlabored, Respiratory pattern is regular, symmetrical, Breath sounds are clear bilaterally. GI: No signs and/or symptoms were reported involving the gastrointestinal system. : No signs and/or symptoms were reported regarding the genitourinary system. EENT: No signs and/or symptoms were reported regarding the EENT system. Derm: Skin is intact, is healthy with good turgor, Skin is dry, Skin is normal, Skin temperature is warm. Musculoskeletal: Circulation, motion, and sensation intact. Capillary refill < 3 seconds, in bilateral fingers. Range of motion: intact in all extremities, Swelling absent Reports numbness in right arm pain in right arm Pain is 8 out of 10 on a pain scale. 20:39 Reassessment: Patient appears in no apparent distress at this time. No changes from ed1 previously documented assessment. Patient and/or family updated on plan of care and expected duration. Pain level reassessed. Patient is alert, oriented x 3, equal unlabored respirations, skin warm/dry/pink. Patient states symptoms have not improved. 21:28 Reassessment: Patient appears in no apparent distress at this time. No changes from ed1 previously documented assessment. Patient and/or family updated on plan of care and expected duration. Pain level reassessed. Patient is alert, oriented x 3, equal unlabored respirations, skin warm/dry/pink. Patient states symptoms have not improved. 22:28 Reassessment: Patient appears in no apparent distress at this time. No changes from ed1 previously documented assessment. Patient and/or family updated on plan of care and expected duration. Pain level reassessed. Patient is alert, oriented x 3, equal unlabored respirations, skin warm/dry/pink. Patient states symptoms have not improved. Vital Signs: 19:40 BP 139 / 92; Pulse 77; Resp 18; Temp 98.1(O); Pulse Ox 100% on R/A; Weight 81.65 kg; lp1 Height 5 ft. 5 in. (165.10 cm); Pain 8/10; 21:26 Pain 9/10; ed1 21:28 BP 131 / 83; Pulse 77; Resp 18; Pulse Ox 98% on R/A; Pain 9/10; ed1 22:28 BP 124 / 86; Pulse 71; Resp 18; Pulse Ox 97% on R/A; Pain 9/10; ed1 19:40 Body Mass Index 29.95 (81.65 kg, 165.10 cm) lp1 ED Course: 19:23 Patient arrived in ED. ds1 19:30 Omar Montenegro MD is Attending Physician. gs 19:39 Bita Padilla, RN is Primary Nurse. ed1 19:39 Triage completed. lp1 19:39 Patient has correct armband on for positive identification. Placed in gown. Bed in low ed1 position. Call light in reach. Side rails up X 1. Pulse ox on. NIBP on. 19:40 Arm band placed on left wrist. lp1 20:35 UPPER EXTREMITY VENOUS UNILATE In Process Unspecified. EDMS 22:39 Resting quietly. Awaiting disposition. ed1 23:24 Mark Mcneil MD is Referral Physician. gs 23:30 No provider procedures requiring assistance completed. Patient did not have IV access ed1 during this emergency room visit. Administered Medications: 20:39 Drug: [place] 10 mg-325 mg 1 tabs Route: PO; ed1 21:26 Follow up: Pain 9/10 Adult; Response: No adverse reaction; Pain is unchanged, physician ed1 notified 21:57 Drug: TORadol 30 mg Route: IM; Site: left deltoid; ed1 22:39 Follow up: Response: No adverse reaction; Pain is unchanged, physician notified ed1 Outcome: 23:25 Discharge ordered by . gs 23:30 Discharged to home ambulatory. ed1 23:30 Condition: good 23:30 Discharge instructions given to patient, Instructed on discharge instructions, follow up and referral plans. medication usage, Demonstrated understanding of instructions, follow-up care, medications, Prescriptions given X 1. 23:31 Patient left the ED. ed1 Signatures: Dispatcher [employer] [facility] [place] ds1 Bita Padilla RN RN ed1 Lynne Sharma RN RN lp1 Omar Montenegro MD MD gs
[2018-06-07 23:39] VITALS: TEMP 98.1
[2018-06-07 23:46] VITALS: BP 124/86; O2SAT 97
== END 2018-06-07 23:31 | disposition home or self-care (01) ==
LOC: ER 19:21
DX: M79.621 Pain in right upper arm (principal); K21.9 Gastro-esophageal reflux disease without esophagitis; I10 Essential (primary) hypertension; Z88.5 Allergy status to narcotic agent
CPT/HCPCS: 93971; 96372; 99284

== ENCOUNTER 2018-07-19 22:37 | Emergency (ER) | payer BC ==
[2018-07-19 23:24] LABS: Absolute Lymphocytes (CBC) 3.5 K/uL (0.7-4.9); Absolute Monocytes 1.1 K/uL (0.1-1.3); Absolute Neutrophil 5.3 K/uL (1.8-8.0); Basophils % 0.7 % (0-1.3); Hematocrit 39.3 % (36.0-45.0); Lymphocytes % 34.6 % (15.3-44.8); Monocytes % 10.7 % (3.3-12.3)
[2018-07-19] MEDS ORDERED: ONDANSETRON 4 MG/2 ML VIAL ONE (23:36)
[2018-07-19] MEDS ORDERED: NA CHLORIDE 0.9% 1,000 ML ONE (23:36)
[2018-07-19] MEDS ORDERED: FENTANYL CITR 100 MCG/2 ML ONE (23:36)
[2018-07-20 00:10] LABS: ALT/SGPT 50 U/L (12-78); AST/SGOT 34 U/L (15-37); Albumin 3.8 g/dL (3.4-5.0); Alkaline Phosphatase 106 U/L (45-117); BUN Blood Urea Nitrogen 7 mg/dL (7-18); Bicarbonate 29 mmol/L (21-32); Bilirubin Direct < 0.1 mg/dL (0-0.2); Bilirubin Total 0.3 mg/dL (0.2-1.0); Glucose Level 92 mg/dL (74-106); Lipase 208 U/L (73-393); Potassium 3.6 mmol/L (3.5-5.1); Protein, Total 8.4 g/dL (6.4-8.2); Sodium Level 140 mmol/L (136-145)
[2018-07-20] MEDS ORDERED: MEPERIDINE HCL 25 MG/0.5 ML ONE (00:39)
[2018-07-20] MEDS ORDERED: PROMETHAZINE 25 MG/ML VIAL ONE (01:02)
--- NOTE | 2018-07-20 01:11 | ER ---
Nurse's Notes [facility] Name: Misa Tuttle Age: 42 yrs Sex: Female : 1975 Arrival Date: 07/19/2018 Time: 22:41 Bed 4 Private MD: Rafat Rivera C Diagnosis: Upper abdominal pain, unspecified-chronic Presentation: 07/19 22:59 Presenting complaint: Patient states: Reports epigastric pain that wraps around left ea side with n/v/d. Pt reports symptoms started yesterday. Transition of care: patient was not received from another setting of care. Onset of symptoms was July 19, 2018. Risk Assessment: Do you want to hurt yourself or someone else? Patient reports no desire to harm self or others. Initial Sepsis Screen: Does the patient meet any 2 criteria? No. Patient's initial sepsis screen is negative. Does the patient have a suspected source of infection? No. Patient's initial sepsis screen is negative. Care prior to arrival: None. 22:59 Method Of Arrival: Ambulatory ea 22:59 Acuity: ELADIO 3 ea Triage Assessment: 23:03 General: Appears uncomfortable, Behavior is restless. Pain: Complains of pain in ea epigastric area, anterior aspect of left lateral abdomen and left upper quadrant. GI: Reports diarrhea, nausea, vomiting. 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 - Social history:: Smoking status: Patient/guardian denies using tobacco. - Ebola Screening: : No symptoms or risks identified at this time. Screenin:01 Abuse screen: Denies threats or abuse. Nutritional screening: No deficits noted. ea Tuberculosis screening: No symptoms or risk factors identified. Fall Risk None identified. Assessment: 23:12 General: Appears in no apparent distress. comfortable, Behavior is calm, cooperative. mg2 Pain: Complains of pain in epigastric area Pain does not radiate. Pain currently is 8 out of 10 on a pain scale. Quality of pain is described as aching, Pain began gradually, 2-3 days ago. Is intermittent. Neuro: Level of Consciousness is awake, alert, obeys commands, Oriented to person, place, time, situation. Cardiovascular: Capillary refill < 3 seconds Patient's skin is warm and dry. Respiratory: Airway is patent Respiratory effort is even, unlabored, Respiratory pattern is regular, symmetrical. GI: Bowel sounds present X 4 quads. Abd is soft and non tender. GI: Reports upper abdominal pain, diarrhea, nausea, vomiting, since 3 days ago. : No signs and/or symptoms were reported regarding the genitourinary system. EENT: No signs and/or symptoms were reported regarding the EENT system. Derm: Skin is intact, is healthy with good turgor, Skin is pink, warm \T\ dry. normal. Musculoskeletal: Circulation, motion, and sensation intact. Capillary refill < 3 seconds. 07/20 00:29 Reassessment: patient still in pain. provider informed and pain addressed. mg2 01:19 Reassessment: Patient appears in no apparent distress at this time. Patient and/or mg2 family updated on plan of care and expected duration. Pain level reassessed. Patient is alert, oriented x 3, equal unlabored respirations, skin warm/dry/pink. Patient states feeling better. Patient states symptoms have improved. Vital Signs: 07/19 23:01 BP 130 / 114; Pulse 83; Resp 18; Temp 97.8; Pulse Ox 100% on R/A; Weight 77.11 kg; ea Height 5 ft. 5 in. (165.10 cm); Pain 10/10; 07/20 00:11 BP 107 / 77; Pulse 80; Resp 18; Pulse Ox 100% on R/A; mg2 01:10 BP 117 / 80; Pulse 81; Resp 18; Temp 98.5; Pulse Ox 100% on R/A; Pain 0/10; mg2 07/19 23:01 Body Mass Index 28.29 (77.11 kg, 165.10 cm) ea ED Course: 07/19 22:41 Patient arrived in ED. am2 22:41 Rafat Rivera MD is Private Physician. am2 23:01 Triage completed. ea 23:02 Arm band placed on right wrist. Patient placed in an exam room, on a stretcher, on ea pulse oximetry. 23:10 Jose Desai, VINOD is Primary Nurse. mg2 23:10 [facility]-C [facility]. kb 23:10 Jamshid Martinez MD is Attending Physician. kb 23:11 No provider procedures requiring assistance completed. Inserted saline lock: 20 gauge mg2 in right antecubital area, using aseptic technique. Blood collected. 23:13 Patient has correct armband on for positive identification. mg2 07/20 01:12 IV discontinued, intact, bleeding controlled, No redness/swelling at site. Pressure mg2 dressing applied. Administered Medications: 07/19 23:31 Drug: fentaNYL (PF) 50 mcg Route: IVP; Site: right antecubital; mg2 23:55 Follow up: Response: No adverse reaction; Marked relief of symptoms mg2 23:32 Drug: NS 0.9% 1000 ml Route: IV; Rate: 1000 ml; Site: right antecubital; mg2 07/20 01:10 Follow up: Response: No adverse reaction; IV Status: Order to discontinue infusion; IV mg2 Intake: 500ml 07/19 23:32 Drug: Zofran 4 mg Route: IVP; Site: right antecubital; mg2 07/20 00:30 Follow up: Response: No adverse reaction; Marked relief of symptoms mg2 00:29 Drug: Demerol 25 mg Route: IVP; Site: right antecubital; mg2 01:12 Follow up: Response: No adverse reaction; Marked relief of symptoms; Pain is decreased mg2 00:51 Drug: Phenergan 12.5 mg Route: IVP; Site: right antecubital; ea 01:12 Follow up: Response: No adverse reaction; Marked relief of symptoms mg2 Intake: 01:10 IV: 500ml; Total: 500ml. mg2 Outcome: 01:11 Discharge ordered by . kb 01:19 Discharged to home ambulatory. mg2 01:19 Condition: stable 01:19 Discharge instructions given to patient, Instructed on discharge instructions, follow up and referral plans. Demonstrated understanding of instructions, follow-up care. 01:19 Patient left the ED. mg2 Signatures: Anette León FNP-C FNP-Anjali Juarez am2 Ines Castro RN RN ea Gardose, Michele, RN RN mg2
--- NOTE | 2018-07-20 01:11 | EDPHYS ---
Physician Documentation [facility] Name: Misa Tuttle Age: 42 yrs Sex: Female : 1975 Arrival Date: 07/19/2018 Time: 22:41 Bed 4 Private MD: Rafat Rivera C ED Physician Jamshid Martinez HPI: 07/20 01:13 This 42 yrs old Female presents to ER via Ambulatory with complaints of kb Abdominal Pain. 01:13 The patient presents with abdominal pain in the left upper quadrant. Onset: The kb symptoms/episode began/occurred 3 day(s) ago. The symptoms radiate to the left flank. Associated signs and symptoms: Pertinent positives: nausea and vomiting, Pertinent negatives: anorexia, blood in stools, chest pain, constipation, diarrhea, dysuria, fever, headache, hematuria, palpitations, shortness of breath, vaginal discharge, vomiting blood. The symptoms are described as constant. Modifying factors: The symptoms are alleviated by nothing, the symptoms are aggravated by pressure. Severity of pain: At its worst the pain was moderate in the emergency department the pain is unchanged. The patient has experienced similar episodes in the past, chronically. The patient has not recently seen a physician. Pt states she has had an exacerbation of abd pain that started 3 days ago. Can't get into GI until 07/28/18, has appt scheduled. Has tried to get into pain management for this, but unable to find one.. 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 - Social history:: Smoking status: Patient/guardian denies using tobacco. - Ebola Screening: : No symptoms or risks identified at this time. ROS: 07/20 01:13 Constitutional: Negative for fever, chills, and weight loss, Cardiovascular: Negative kb for chest pain, palpitations, and edema, Respiratory: Negative for shortness of breath, cough, wheezing, and pleuritic chest pain, Back: Negative for injury and pain, : Negative for injury, bleeding, discharge, and swelling, MS/Extremity: Negative for injury and deformity, Skin: Negative for injury, rash, and discoloration, Neuro: Negative for headache, weakness, numbness, tingling, and seizure. Abdomen/GI: Positive for abdominal pain, nausea and vomiting, Negative for diarrhea, constipation, abdominal cramps, abdominal distension, anorexia. Exam: 01:13 Constitutional: This is a well developed, well nourished patient who is awake, alert, kb and in no acute distress. Head/Face: Normocephalic, atraumatic. Chest/axilla: Normal chest wall appearance and motion. Nontender with no deformity. No lesions are appreciated. Cardiovascular: Regular rate and rhythm with a normal S1 and S2. No gallops, murmurs, or rubs. Normal PMI, no JVD. No pulse deficits. Respiratory: Lungs have equal breath sounds bilaterally, clear to auscultation and percussion. No rales, rhonchi or wheezes noted. No increased work of breathing, no retractions or nasal flaring. Back: No spinal tenderness. No costovertebral tenderness. Full range of motion. Skin: Warm, dry with normal turgor. Normal color with no rashes, no lesions, and no evidence of cellulitis. MS/ Extremity: Pulses equal, no cyanosis. Neurovascular intact. Full, normal range of motion. Neuro: Awake and alert, GCS 15, oriented to person, place, time, and situation. Cranial nerves II-XII grossly intact. Motor strength 5/5 in all extremities. Sensory grossly intact. Cerebellar exam normal. Normal gait. 01:13 Abdomen/GI: Inspection: abdomen appears normal, Bowel sounds: normal, in all quadrants, Palpation: soft, in all quadrants, moderate abdominal tenderness, in the left upper quadrant and left lower quadrant. Vital Signs: 07/19 23:01 BP 130 / 114; Pulse 83; Resp 18; Temp 97.8; Pulse Ox 100% on R/A; Weight 77.11 kg; ea Height 5 ft. 5 in. (165.10 cm); Pain 10/10; 07/20 00:11 BP 107 / 77; Pulse 80; Resp 18; Pulse Ox 100% on R/A; mg2 01:10 BP 117 / 80; Pulse 81; Resp 18; Temp 98.5; Pulse Ox 100% on R/A; Pain 0/10; mg2 07/19 23:01 Body Mass Index 28.29 (77.11 kg, 165.10 cm) ea MDM: 07/19 23:11 Patient medically screened. kb 07/20 01:12 Data reviewed: vital signs, nurses notes. Data interpreted: Pulse oximetry: on room air kb is 100 %. Interpretation: normal. Counseling: I had a detailed discussion with the patient and/or guardian regarding: the historical points, exam findings, and any diagnostic results supporting the discharge/admit diagnosis, lab results, the need for outpatient follow up, a family practitioner, a director product development, to return to the emergency department if symptoms worsen or persist or if there are any questions or concerns that arise at home. 07/19 22:59 Order name: Basic Metabolic Panel tl2 07/19 22:59 Order name: CBC with Diff tl2 07/19 22:59 Order name: Creatinine for Radiology tl2 07/19 22:59 Order name: Hepatic Function tl2 07/19 22:59 Order name: Lipase tl2 07/19 23:32 Order name: CBC with Automated Diff; Complete Time: 23:32 EDMS 07/19 23:42 Order name: Creatinine (Radiology Only); Complete Time: 23:41 EDMS 07/20 00:12 Order name: Basic Metabolic Panel; Complete Time: 00:18 EDMS 07/20 00:12 Order name: Liver (Hepatic) Function; Complete Time: 00:18 EDMS 07/20 00:12 Order name: Lipase; Complete Time: 00:18 EDMS 07/19 22:59 Order name: IV Saline Lock; Complete Time: 23:10 tl2 07/19 22:59 Order name: Labs collected and sent; Complete Time: 23:10 tl2 Administered Medications: 07/19 23:31 Drug: fentaNYL (PF) 50 mcg Route: IVP; Site: right antecubital; mg2 23:55 Follow up: Response: No adverse reaction; Marked relief of symptoms mg2 23:32 Drug: NS 0.9% 1000 ml Route: IV; Rate: 1000 ml; Site: right antecubital; mg2 07/20 01:10 Follow up: Response: No adverse reaction; IV Status: Order to discontinue infusion; IV mg2 Intake: 500ml 07/19 23:32 Drug: Zofran 4 mg Route: IVP; Site: right antecubital; mg2 07/20 00:30 Follow up: Response: No adverse reaction; Marked relief of symptoms mg2 00:29 Drug: Demerol 25 mg Route: IVP; Site: right antecubital; mg2 01:12 Follow up: Response: No adverse reaction; Marked relief of symptoms; Pain is decreased mg2 00:51 Drug: Phenergan 12.5 mg Route: IVP; Site: right antecubital; ea 01:12 Follow up: Response: No adverse reaction; Marked relief of symptoms mg2 Disposition: 01:54 Co-signature as Attending Physician, Jamshid Martinez MD. [email or web address] Disposition: 07/20/18 01:11 Discharged to Home. Impression: Upper abdominal pain, unspecified - chronic. - Condition is Stable. - Discharge Instructions: Abdominal Pain, Adult, [id number]. - Medication Reconciliation Form, Thank You Letter, Antibiotic Education, Prescription Opioid Use form. - Follow up: Emergency Department; When: As needed; Reason: Worsening of condition. Follow up: Private Physician; When: 2 - 3 days; Reason: Recheck today's complaints, Continuance of care, Re-evaluation by your physician. Signatures: Dispatcher [employer] EDMS Anette León, TURNING SANDER OPERATOR-C TURNING SANDER OPERATOR-Jamshid Ayala MD MD pkDarleen Tamez RN RN tl2 Ines Castro RN RN Jose Cagle RN RN mg2 Corrections: (The following items were deleted from the chart) 01:19 01:11 07/20/2018 01:11 Discharged to Home. Impression: Upper abdominal pain, mg2 unspecified - chronic. Condition is Stable. Forms are Medication Reconciliation Form, Thank You Letter, Antibiotic Education, Prescription Opioid Use. Follow up: Emergency Department; When: As needed; Reason: Worsening of condition. Follow up: Private Physician; When: 2 - 3 days; Reason: Recheck today's complaints, Continuance of care, Re-evaluation by your physician. kb
[2018-07-20 02:06] VITALS: TEMP 97.8; O2SAT 100
[2018-07-20 02:07] VITALS: BP 107/77
== END 2018-07-20 01:19 | disposition home or self-care (01) ==
LOC: ER 22:37
DX: R10.10 Upper abdominal pain, unspecified (principal); I10 Essential (primary) hypertension; K21.9 Gastro-esophageal reflux disease without esophagitis; Z88.5 Allergy status to narcotic agent
CPT/HCPCS: 36415; 80048; 80076; 83690; 85025; 96361; 96374; 96375; 99284; J2175; J2405; J2550; J3010; J7030

== ENCOUNTER 2018-10-31 09:25 | Emergency (ER) | payer BC ==
[2018-10-31] MEDS ORDERED: IPRATROPIUM BROM 0.5MG/2.5ML ONE (10:48)
[2018-10-31] MEDS ORDERED: ALBUTEROL 2.5 MG/3 ML NEB SOL ONE (10:48)
--- NOTE | 2018-10-31 11:17 | ER ---
Nurse's Notes [facility] Name: Misa Tuttle Age: 43 yrs Sex: Female : 1975 Arrival Date: 10/31/2018 Time: 09:27 Bed 18 Private MD: Diagnosis: Acute bronchitis Presentation: 10/31 09:42 Presenting complaint: Sinus pressure, productive cough and pain with cough x 4 days, hb SOB and chest "tightness' today. On Amoxicillin Day 3 for sinus infection. Denies fever. Transition of care: patient was not received from another setting of care. Onset of symptoms was October 27, 2018. Risk Assessment: Do you want to hurt yourself or someone else? Patient reports no desire to harm self or others. Initial Sepsis Screen: Does the patient meet any 2 criteria? No. Patient's initial sepsis screen is negative. Does the patient have a suspected source of infection? No. Patient's initial sepsis screen is negative. Care prior to arrival: None. 09:42 Method Of Arrival: Ambulatory hb 09:42 Acuity: ELADIO 3 hb Historical: - Allergies: 09:44 Morphine; hb - Immunization history:: Adult Immunizations up to date. - Social history:: Smoking status: Patient/guardian denies using tobacco. - Ebola Screening: : No symptoms or risks identified at this time. Screenin:45 Abuse screen: Denies threats or abuse. Nutritional screening: No deficits noted. em Tuberculosis screening: No symptoms or risk factors identified. Fall Risk None identified. Assessment: 10:45 General: Behavior is calm, cooperative, Denies fever. Pain: Complains of pain in face em and chest Pain currently is 7 out of 10 on a pain scale. Neuro: Level of Consciousness is awake, alert, obeys commands, Oriented to person, place, time, situation, Appropriate for age Gait is steady, Speech is normal. Cardiovascular: Heart tones S1 S2 present Capillary refill < 3 seconds Patient's skin is warm and dry. Respiratory: Airway is patent Respiratory effort is even, unlabored, Respiratory pattern is regular, symmetrical, Breath sounds are clear bilaterally. GI: Abdomen is flat, Bowel sounds present X 4 quads. EENT: Oral mucosa is moist. Throat is clear is pink Reports nasal congestion. Derm: Skin is intact, is healthy with good turgor, Skin is pink, warm \\T\\ dry. Musculoskeletal: Capillary refill < 3 seconds. 10:59 Reassessment: I agree with previous assessment. hb Vital Signs: 09:44 BP 116 / 87; Pulse 78; Resp 16; Temp 97.7; Pulse Ox 100% on R/A; Weight 81.65 kg; hb Height 5 ft. 5 in. (165.10 cm); Pain 6/10; 11:40 BP 131 / 67; Pulse 85; Resp 18; Pulse Ox 99% on R/A; em 09:44 Body Mass Index 29.95 (81.65 kg, 165.10 cm) hb ED Course: 09:27 Patient arrived in ED. rg4 09:44 Triage completed. hb 09:44 Arm band placed on. hb 10:06 Fahad Dennis PA is PHCP. [facility] 10:06 Ibrahima Sam MD is Attending Physician. [facility] 10:21 Aj Renee LVN is Primary Nurse. em 10:45 Patient has correct armband on for positive identification. Bed in low position. Call em light in reach. 11:39 No provider procedures requiring assistance completed. Patient did not have IV access em during this emergency room visit. Administered Medications: 10:52 Drug: DuoNeb (3:1) (2.5 mg - 0.5 mg) 3 ml Route: Nebulizer; em 11:19 Follow up: Response: No adverse reaction em 11:25 Drug: Decadron 10 mg Route: IM; Site: right deltoid; em 11:40 Follow up: Response: No adverse reaction em Outcome: 11:17 Discharge ordered by MD. [facility] 11:39 Discharged to home ambulatory. em 11:39 Condition: good 11:39 Discharge instructions given to patient, Instructed on discharge instructions, follow up and referral plans. medication usage, Demonstrated understanding of instructions, follow-up care, medications, Prescriptions given X 2. 11:43 Patient left the ED. em Signatures: Fahad Dennis PA PA Aj Dumont LVN LVN em Kathy Oconnell RN RN Ariana Stone rg4 Corrections: (The following items were deleted from the chart) 09:45 09:42 Presenting complaint: Sinus pressure, productive cough and pain with cough x 4 hb days, SOB today. On Amoxicillin Day 3 for sinus infection. Denies fever. hb
--- NOTE | 2018-10-31 11:18 | EDPHYS ---
Physician Documentation [facility] Name: Misa Tuttle Age: 43 yrs Sex: Female : 1975 Arrival Date: 10/31/2018 Time: 09: Bed 18 Private MD: ED Physician Ibrahima Sam HPI: 10/31 10:25 This 43 yrs old Female presents to ER via Ambulatory with complaints of Sinus jmm Pain, Cough. 10:25 The patient or guardian reports cough. Onset: The symptoms/episode began/occurred 1 jmm day(s) ago. Modifying factors: The symptoms are alleviated by nothing. This is a 43 year old female with no chronic medical conditions that presents to the ED with complaints of sinus congestion beginning this past Thursday with productive cough and chest tightness beginning yesterday. Patient was prescribed amoxicillin on Thursday with no relief. Denies fever. . Historical: - Allergies: :44 Morphine; hb - Immunization history:: Adult Immunizations up to date. - Social history:: Smoking status: Patient/guardian denies using tobacco. - Ebola Screening: : No symptoms or risks identified at this time. ROS: 10:25 Constitutional: Negative for fever, chills, and weight loss. jmm 10:25 Cardiovascular: Negative for chest pain, palpitations, and edema. 10:25 Abdomen/GI: Negative for abdominal pain, nausea, vomiting, diarrhea, and constipation, Back: Negative for injury and pain, Neuro: Negative for headache, weakness, numbness, tingling, and seizure. 10:25 ENT: Positive for sinus congestion. 10:25 Respiratory: Positive for cough. 10:25 All other systems are negative. Exam: 10:25 Constitutional: This is a well developed, well nourished patient who is awake, alert, jmm and in no acute distress. 10:25 ENT: Moist Mucus Membranes Neck: Trachea midline, Supple Chest/axilla: Normal chest wall appearance and motion. 10:25 Abdomen/GI: Non distended, soft Back: Normal ROM Skin: General appearance color normal MS/ Extremity: Moves all extremities, no obvious deformities appreciated, no edema noted to the lower extremities Neuro: Awake and alert, normal gait Psych: Behavior is normal, Mood is normal, Patient is cooperative and pleasant 10:25 Head/face: Noted is Sinus tenderness, that is mild. 10:25 Cardiovascular: Rate: normal, Rhythm: regular. 10:25 Respiratory: the patient does not display signs of respiratory distress, Respirations: normal, Breath sounds: are clear throughout. Vital Signs: 09:44 BP 116 / 87; Pulse 78; Resp 16; Temp 97.7; Pulse Ox 100% on R/A; Weight 81.65 kg; hb Height 5 ft. 5 in. (165.10 cm); Pain 6/10; 11:40 BP 131 / 67; Pulse 85; Resp 18; Pulse Ox 99% on R/A; em 09:44 Body Mass Index 29.95 (81.65 kg, 165.10 cm) hb MDM: 10:24 Patient medically screened. [facility] 11:15 Data reviewed: vital signs, nurses notes. Counseling: I had a detailed discussion with krzysztof the patient and/or guardian regarding: the historical points, exam findings, and any diagnostic results supporting the discharge/admit diagnosis, the need for outpatient follow up, to return to the emergency department if symptoms worsen or persist or if there are any questions or concerns that arise at home. ED course: Increased lung sound son re auscultation with mild right sided wheezing. Patient states she feels much better. PE findings consistent with bronchitis. patient given return precautions. patient understood and agrees with the plan of care. . Administered Medications: 10:52 Drug: DuoNeb (3:1) (2.5 mg - 0.5 mg) 3 ml Route: Nebulizer; em 11:19 Follow up: Response: No adverse reaction em 11:25 Drug: Decadron 10 mg Route: IM; Site: right deltoid; em 11:40 Follow up: Response: No adverse reaction em Disposition: 20:36 Co-signature as Attending Physician, Ibrahima Sam MD. rn Disposition: 10/31/18 11:17 Discharged to Home. Impression: Acute bronchitis. - Condition is Stable. - Discharge Instructions: Acute Bronchitis, Adult. - Prescriptions for Medrol (Tono) 4 mg Oral Tablets, Dose Pack - take 1 tablet by ORAL route as directed - follow package instructions; 1 packet. Albuterol Sulfate 90 mcg/actuation - inhale 1-2 puff by INHALATION route every 4-6 hours; 1 Inhaler. - Medication Reconciliation Form, Thank You Letter, Antibiotic Education, Prescription Opioid Use, Work release form form. - Follow up: Private Physician; When: 2 - 3 days; Reason: Recheck today's complaints, Continuance of care, Re-evaluation by your physician. Signatures: Fahad Dennis PA PA jmm Munoz, Edgar, NURSING SERVICE ADMINISTRATOR NURSING SERVICE ADMINISTRATOR Ibrahima Chavez MD MD rn Kathy Oconnell RN RN Corrections: (The following items were deleted from the chart) 11:43 11:17 10/31/2018 11:17 Discharged to Home. Impression: Acute bronchitis. Condition is em Stable. Forms are Medication Reconciliation Form, Thank You Letter, Antibiotic Education, Prescription Opioid Use. Follow up: Private Physician; When: 2 - 3 days; Reason: Recheck today's complaints, Continuance of care, Re-evaluation by your physician. [email or web address]
[2018-10-31] MEDS ORDERED: dexAMETHasone 10 MG/ML VIAL ONE (11:25)
[2018-10-31 12:01] VITALS: BP 131/67; O2SAT 99
[2018-10-31 12:07] VITALS: TEMP 97.9
== END 2018-10-31 11:43 | disposition home or self-care (01) ==
LOC: ER 09:25
DX: J20.9 Acute bronchitis, unspecified (principal); Z88.6 Allergy status to analgesic agent
CPT/HCPCS: 94640; 96372; 99284; J1100

== ENCOUNTER 2018-12-23 07:43 | Emergency (ER) | payer BC ==
--- NOTE | 2018-12-23 09:45 | RAD REPORT ---
EXAM DESCRIPTION: RAD - Chest Pa And Lat (2 Views) - 12/23/2018 9:38 am CLINICAL HISTORY: COUGH Chest pain. COMPARISON: Abdomen Acute Series dated 05/30/2018; Chest Single View dated 11/03/2017; Chest Single Vi ew dated 11/02/2017; Chest Single View dated 10/27/2017 FINDINGS: The lungs are clear. The heart is normal in size. No displaced fractures. IMPRESSION: No acute or concerning finding suspected.
[2018-12-23 09:59] LABS: Urine Blood TRACE (NEG); Urine Glucose NEGATIVE (NEG); Urine Protein NEGATIVE (NEG); Urine pH 6.5 (5.0-7.0)
[2018-12-23] MEDS ORDERED: NA CHLORIDE 0.9% 1,000 ML ONE (10:16)
[2018-12-23] MEDS ORDERED: dexAMETHasone 10 MG/ML VIAL ONE (10:16)
--- NOTE | 2018-12-23 10:33 | ER ---
Nurse's Notes [facility] Name: Misa Tuttle Age: 43 yrs Sex: Female : 1975 Arrival Date: 12/23/2018 Time: 07:45 Bed 18 Private MD: Rafat Rivera C Diagnosis: Acute upper respiratory infection, unspecified Presentation: 12/23 07:52 Presenting complaint: Patient states: productive cough, SOB, and left ear pain that aa5 began 3 days ago. 07:52 Transition of care: patient was not received from another setting of care. Onset of aa5 symptoms was December 2018. Risk Assessment: Do you want to hurt yourself or someone else? Patient reports no desire to harm self or others. Initial Sepsis Screen: Does the patient meet any 2 criteria? HR > 90 bpm. Does the patient have a suspected source of infection? Yes: Productive cough/pneumonia. Care prior to arrival: None. 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 - Ebola Screening: : No symptoms or risks identified at this time. - Social history:: Smoking status: Patient/guardian denies using tobacco. Screenin:19 Abuse screen: Denies threats or abuse. Denies injuries from another. Nutritional jl7 screening: No deficits noted. Tuberculosis screening: No symptoms or risk factors identified. 09:00 Fall Risk IV access (20 points). Total Salvador Fall Scale indicates No Risk (0-24 pts). jl7 Assessment: 08:12 General: Appears in no apparent distress. uncomfortable, Behavior is calm, cooperative, jl7 appropriate for age. Pain: Denies pain. Neuro: Level of Consciousness is awake, alert, obeys commands, Oriented to person, place, time, situation. Cardiovascular: Heart tones S1 S2 present Patient's skin is warm and dry. Rhythm is regular. Respiratory: Reports cough that is productive, pain with cough Airway is patent Respiratory effort is even, unlabored, Respiratory pattern is regular, symmetrical, Breath sounds with rhonchi bilaterally. GI: No signs and/or symptoms were reported involving the gastrointestinal system. : No signs and/or symptoms were reported regarding the genitourinary system. Denies burning with urination, urinary frequency. EENT: Oral mucosa is moist. Throat is clear. Derm: Skin is pink, warm \T\ dry. 10:20 Reassessment: Patient is alert, oriented x 3, equal unlabored respirations, skin aa5 warm/dry/pink. 10:35 Reassessment: Pt will be discharged once fluids are done infusing. jl7 Vital Signs: 07:53 BP 122 / 83; Pulse 92; Resp 18 S; Temp 98.4(O); Pulse Ox 100% on R/A; Weight 77.11 kg aa5 (R); Height 5 ft. 5 in. (165.10 cm) (R); 09:00 BP 106 / 75; Pulse 89; Resp 16 S; Pulse Ox 100% on R/A; jl7 10:00 BP 97 / 65; Pulse 88; Resp 17 S; Pulse Ox 100% on R/A; jl7 11:22 BP 97 / 66; Pulse 89; Resp 16 S; Pulse Ox 100% on R/A; jl7 07:53 Body Mass Index 28.29 (77.11 kg, 165.10 cm) aa5 ED Course: 07:45 Patient arrived in ED. ag5 07:46 Rafat Rivera MD is Private Physician. ag5 07:52 Arm band placed on Patient placed in an exam room, on a stretcher. aa5 07:54 Fahad Dennis PA is PHCP. [facility] 07:54 Cade Hull MD is Attending Physician. jmm 08:02 Triage completed. aa5 08:05 Jennifer Baltazar, VINOD is Primary Nurse. jl7 08:19 Patient has correct armband on for positive identification. Placed in gown. Bed in low jl7 position. Call light in reach. Side rails up X 1. Pulse ox on. NIBP on. Warm blanket given. 09:00 No provider procedures requiring assistance completed. jl7 09:39 Chest Pa And Lat (2 Views) XRAY In Process Unspecified. EDMS 10:20 Inserted saline lock: 22 gauge in right forearm, using aseptic technique. aa5 10:32 Rafat Rivera MD is Referral Physician. [facility] 11:22 IV discontinued, intact, bleeding controlled, No redness/swelling at site. Pressure jl7 dressing applied. Administered Medications: 09:00 Drug: DuoNeb (3:1) (2.5 mg - 0.5 mg) 3 ml Route: Nebulizer; jl7 09:30 Follow up: Response: No adverse reaction jl7 10:20 Drug: NS 0.9% 1000 ml Route: IV; Rate: 1 bolus; Site: right forearm; aa5 11:23 Follow up: Response: No adverse reaction; IV Status: Completed infusion jl7 10:20 Drug: Decadron - Dexamethasone 10 mg Route: IVP; Site: right forearm; aa5 10:55 Follow up: Response: No adverse reaction jl7 Outcome: 10:33 Discharge ordered by MD. jmm 11:22 Discharged to home ambulatory. jl7 11:22 Condition: stable 11:22 Discharge instructions given to patient, family, Instructed on discharge instructions, follow up and referral plans. medication usage, Demonstrated understanding of instructions, follow-up care, medications, Prescriptions given X 2. 11:24 Patient left the ED. jl7 Signatures: Dispatcher [employer] EDMS Fahad Dennis PA PA jmm Calderon, Audri, RN RN aa5 Jennifer Baltazar RN RN jl7 Mohan Spivey ag5
--- NOTE | 2018-12-23 10:34 | EDPHYS ---
Physician Documentation [facility] Name: Misa Tuttle Age: 43 yrs Sex: Female : 1975 Arrival Date: 12/23/2018 Time: 07:45 Bed 18 Private MD: Rafat Rivera C ED Physician Cade Hull HPI: 12/23 08:29 This 43 yrs old Female presents to ER via Ambulatory with complaints of jmm Cough, Breathing Difficulty. 08:29 The patient or guardian reports cough. Onset: The symptoms/episode began/occurred jmm gradually, 4 day(s) ago. Modifying factors: The symptoms are alleviated by nothing, the symptoms are aggravated by nothing. Associated signs and symptoms: Pertinent positives: earache, sore throat. This is a 43 year old female with a history of htn, gerd, that presents to the ED with complaints of productive cough, left earache, sore throat, congestion beginning 4 days ago. Denies vomiting or diarrhea. 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 - Ebola Screening: : No symptoms or risks identified at this time. - Social history:: Smoking status: Patient/guardian denies using tobacco. ROS: 08:29 Constitutional: Negative for fever, chills, and weight loss, Cardiovascular: Negative jmm for chest pain, palpitations, and edema. 08:29 Constitutional: Positive for malaise. 08:29 ENT: Positive for ear pain, sinus congestion, sore throat. 08:29 Respiratory: Positive for cough, "sounds productive". 08:29 Abdomen/GI: Negative for abdominal pain, nausea and vomiting, diarrhea. 08:29 All other systems are negative. Exam: 08:29 Constitutional: This is a well developed, well nourished patient who is awake, alert, jmm and in no acute distress. Head/Face: atraumatic. Eyes: EOMI, no conjunctival erythema appreciated 08:29 Chest/axilla: Normal chest wall appearance and motion. 08:29 Abdomen/GI: Non distended, soft Back: Normal ROM Skin: General appearance color normal MS/ Extremity: Moves all extremities, no obvious deformities appreciated, no edema noted to the lower extremities Neuro: Awake and alert, normal gait Psych: Behavior is normal, Mood is normal, Patient is cooperative and pleasant 08:29 ENT: TM's: erythema, that is mild, on the left, Posterior pharynx: erythema, that is mild. 08:29 Cardiovascular: Rate: normal, Rhythm: regular, Pulses: no pulse deficits are appreciated. 08:29 Respiratory: the patient does not display signs of respiratory distress, Respirations: normal, Breath sounds: are clear throughout. Vital Signs: 07:53 BP 122 / 83; Pulse 92; Resp 18 S; Temp 98.4(O); Pulse Ox 100% on R/A; Weight 77.11 kg aa5 (R); Height 5 ft. 5 in. (165.10 cm) (R); 09:00 BP 106 / 75; Pulse 89; Resp 16 S; Pulse Ox 100% on R/A; jl7 10:00 BP 97 / 65; Pulse 88; Resp 17 S; Pulse Ox 100% on R/A; jl7 11:22 BP 97 / 66; Pulse 89; Resp 16 S; Pulse Ox 100% on R/A; jl7 07:53 Body Mass Index 28.29 (77.11 kg, 165.10 cm) aa5 MDM: 08:23 Patient medically screened. [facility] 10:32 Data reviewed: vital signs, nurses notes. Counseling: I had a detailed discussion with krzysztof the patient and/or guardian regarding: the historical points, exam findings, and any diagnostic results supporting the discharge/admit diagnosis, lab results, radiology results, the need for outpatient follow up, to return to the emergency department if symptoms worsen or persist or if there are any questions or concerns that arise at home. ED course: Patient is alert and non toxic in appearance in the ED. Patient is advised to follow up with pcp and otherwise given strict return precautions. Patient understood and agrees with the plan of care. . 12/23 08:29 Order name: Flu; Complete Time: 09:14 [facility] 12/23 08:29 Order name: Strep; Complete Time: :14 [facility] 12/23 08:29 Order name: Chest Pa And Lat (2 Views) XRAY; Complete Time: 09:59 [facility] 12/23 08:56 Order name: Urine Dipstick--Ancillary (enter results); Complete Time: 10:06 eb 12/23 08:56 Order name: Urine --Ancillary (enter results); Complete Time: 10:06 eb 12/23 09:08 Order name: Throat Culture [facility] 12/23 08:29 Order name: Urine Dipstick-Ancillary (obtain specimen); Complete Time: 09:43 [facility] Administered Medications: 09:00 Drug: DuoNeb (3:1) (2.5 mg - 0.5 mg) 3 ml Route: Nebulizer; 7 09:30 Follow up: Response: No adverse reaction jl7 10:20 Drug: NS 0.9% 1000 ml Route: IV; Rate: 1 bolus; Site: right forearm; aa5 11:23 Follow up: Response: No adverse reaction; IV Status: Completed infusion jl7 10:20 Drug: Decadron - Dexamethasone 10 mg Route: IVP; Site: right forearm; aa5 10:55 Follow up: Response: No adverse reaction jl7 Disposition: 11:47 Co-signature as Attending Physician, Cade Hull MD I agree with the assessment and kdr plan of care. Disposition: 12/23/18 10:33 Discharged to Home. Impression: Acute upper respiratory infection, unspecified. - Condition is Stable. - Discharge Instructions: Upper Respiratory Infection, Adult. - Prescriptions for Bromfed DM 2- 30-10 mg/5 mL Oral syrup - take 5 milliliter by ORAL route every 4 hours; 1 bottle. Albuterol Sulfate 90 mcg/actuation - inhale 1-2 puff by INHALATION route every 4-6 hours; 1 Inhaler. - Medication Reconciliation Form, Thank You Letter, Antibiotic Education, Prescription Opioid Use form. - Follow up: Rafat Rivera MD; When: 2 - 3 days; Reason: Recheck today's complaints, Continuance of care, Re-evaluation by your physician. Signatures: Dispatcher [employer] Cade Rodriguez MD MD kdr Mickail, Joel, PA PA Marleni Tsang, RN RN aa5 Jennifer Baltazar RN RN jl7 Corrections: (The following items were deleted from the chart) 11:24 10:33 12/23/2018 10:33 Discharged to Home. Impression: Acute upper respiratory jl7 infection, unspecified. Condition is Stable. Forms are Medication Reconciliation Form, Thank You Letter, Antibiotic Education, Prescription Opioid Use. Follow up: Rafat Rivera; When: 2 - 3 days; Reason: Recheck today's complaints, Continuance of care, Re-evaluation by your physician. krzysztof
[2018-12-23 14:42] VITALS: TEMP 98.4; O2SAT 100
[2018-12-23 15:03] VITALS: BP 97/66
== END 2018-12-23 11:24 | disposition home or self-care (01) ==
LOC: ER 07:43
DX: J06.9 Acute upper respiratory infection, unspecified (principal); Z88.6 Allergy status to analgesic agent; I10 Essential (primary) hypertension
CPT/HCPCS: 96361; 87070; 81025; 87081; 81003; 87804 ×2; 71046; 94640; 96374; 99284; J1100; J7030

== ENCOUNTER 2019-03-17 19:06 | Emergency (ER) | payer BC ==
[2019-03-17] MEDS ORDERED: METOCLOPRAMIDE 10 MG/2mL INJ ONE (20:07)
[2019-03-17] MEDS ORDERED: NA CHLORIDE 0.9% 1,000 ML ONE ×2 (20:08→22:20)
[2019-03-17] MEDS ORDERED: ONDANSETRON 4 MG/2 ML VIAL ONE (20:08)
[2019-03-17] MEDS ORDERED: FAMOTIDINE 20 MG/2 ML VIAL IV ONE (20:08)
[2019-03-17] MEDS ORDERED: HYDROMORPHONE HCL 1 MG/ML INJ ONE ×2 (20:08→22:20)
[2019-03-17 20:20] LABS: Absolute Lymphocytes (CBC) 4.2 K/uL (0.7-4.9); Basophils % 0.7 % (0-1.3); Hematocrit 38.6 % (36.0-45.0); Lymphocytes % 38.7 % (15.3-44.8); MPV 9.8 fL (7.6-11.3); RBC Red Blood Cell Count 4.31 M/uL (3.86-4.86)
[2019-03-17 20:43] LABS: ALT/SGPT 31 U/L (12-78); AST/SGOT 19 U/L (15-37); Albumin 3.4 g/dL (3.4-5.0); Alkaline Phosphatase 109 U/L (45-117); BUN Blood Urea Nitrogen 8 mg/dL (7-18); Bicarbonate 29 mmol/L (21-32); Bilirubin Direct < 0.1 mg/dL (0-0.2); Bilirubin Total 0.2 mg/dL (0.2-1.0); Glucose Level 92 mg/dL (74-106); Lipase 211 U/L (73-393); Potassium 3.6 mmol/L (3.5-5.1); Protein, Total 7.8 g/dL (6.4-8.2); Sodium Level 139 mmol/L (136-145)
--- NOTE | 2019-03-17 20:54 | RAD REPORT ---
EXAM DESCRIPTION: RAD - Abdomen Acute Series - 03/17/2019 8:14 pm CLINICAL HISTORY: ABD PAIN COMPARISON: Chest Pa And Lat (2 Views) dated 12/23/2018; Abdomen Acute Series dated 05/30/2018 FINDINGS: Lungs are clear. Heart size and pulmonary vasculature are normal. No pleural effusion, pne umothorax or other acute cardiopulmonary process seen. Bowel gas pattern is nonspecific. No bowel obstruction, free air or other acute findings. No suspicio us calcifications. Cholecystectomy clips are present. No other suspicious for significant findings. No significant change comparisons. IMPRESSION: Negative acute abdomen series for acute or significant finding.
[2019-03-17 21:57] LABS: Urine Blood TRACE (NEG); Urine Glucose NEGATIVE (NEG); Urine Protein NEGATIVE (NEG); Urine Specific Gravity 1.015 (1.005-1.030)
[2019-03-17] MEDS ORDERED: PROMETHAZINE INJ 25 MG/ML AMP ONE (22:20)
--- NOTE | 2019-03-17 22:55 | ER ---
Nurse's Notes [facility] Name: Misa Tuttle Age: 43 yrs Sex: Female : 1975 Arrival Date: 03/17/2019 Time: 19:08 Bed 28 Private MD: Diagnosis: Abdominal tenderness;Functional dyspepsia Presentation: 03/17 19:26 Presenting complaint: Patient states: i have upper abdominal pain today and left sided mg2 pain for a week now. no n/v. Transition of care: patient was not received from another setting of care. Onset of symptoms was February 2019. Risk Assessment: Do you want to hurt yourself or someone else? Patient reports no desire to harm self or others. Initial Sepsis Screen: Does the patient meet any 2 criteria? No. Patient's initial sepsis screen is negative. Does the patient have a suspected source of infection? No. Patient's initial sepsis screen is negative. Care prior to arrival: None. 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 - Coronavirus screen:: The patient has NOT traveled to [place], [place], or [place] in the past 14 days. Proceed with normal triage process as indicated. The patient has NOT had contact with known/suspected case of Coronavirus? Proceed with normal triage procedures. - Social history:: Smoking status: Patient denies any tobacco usage or history of. Patient uses alcohol, but reports only rare drinking. Patient/guardian denies using street drugs, IV drugs. - Family history:: not pertinent. - Ebola Screening: : No symptoms or risks identified at this time. Screenin:10 Fall Risk IV access (20 points). mg2 21:56 Abuse screen: Denies threats or abuse. Denies injuries from another. Nutritional mg2 screening: No deficits noted. Tuberculosis screening: No symptoms or risk factors identified. Assessment: 20:00 General: Appears in no apparent distress. comfortable, Behavior is calm, cooperative. mg2 Pain: Complains of pain in epigastric area Pain does not radiate. Pain currently is 9 out of 10 on a pain scale. Quality of pain is described as aching, Pain began gradually, 1 day ago. Neuro: Level of Consciousness is awake, alert, obeys commands, Oriented to person, place, time, situation. Cardiovascular: Capillary refill < 3 seconds Patient's skin is warm and dry. Respiratory: Airway is patent Respiratory effort is even, unlabored, Respiratory pattern is regular, symmetrical. GI: Bowel sounds present X 4 quads. Abd is soft and non tender Reports upper abdominal pain, nausea, vomiting. : No signs and/or symptoms were reported regarding the genitourinary system. EENT: No signs and/or symptoms were reported regarding the EENT system. Derm: Skin is intact, is healthy with good turgor, Skin is pink, warm \T\ dry. normal. Musculoskeletal: Circulation, motion, and sensation intact. Capillary refill. 21:00 Reassessment: Patient and/or family updated on plan of care and expected duration. Pain vc level reassessed. Patient denies pain at this time. 22:00 Reassessment: Patient sitting up in bed watching TV, no complaints at this time. vc 23:00 Reassessment: Patient and/or family updated on plan of care and expected duration. Pain vc level reassessed. Patient states feeling better. Patient states symptoms have improved. Neuro: Level of Consciousness is awake, obeys commands, Oriented to person, place, time, situation. Vital Signs: 19:27 BP 109 / 73; Pulse 81; Resp 18; Temp 98; Pulse Ox 97% on R/A; Weight 74.84 kg; Height 5 mg2 ft. 5 in. (165.10 cm); Pain 9/10; 21:30 BP 109 / 73; Pulse 80; Resp 18; Pulse Ox 100% on R/A; vc 22:30 BP 113 / 74; Pulse 89; Resp 15; Pulse Ox 98% on R/A; vc 23:30 BP 108 / 69; Pulse 81; Resp 18; Pulse Ox 100% on R/A; vc 19:27 Body Mass Index 27.46 (74.84 kg, 165.10 cm) mg2 ED Course: 19:08 Patient arrived in ED. as 19:18 Carlos Pradhan MD is Attending Physician. kadeem 19:22 Jose Desai, RN is Primary Nurse. mg2 19:27 Triage completed. mg2 19:29 Arm band placed on. mg2 20:06 Inserted saline lock: 22 gauge in left forearm, using aseptic technique. Blood mg2 collected. 20:13 Abdomen Acute Series XRAY In Process Unspecified. EDMS 21:08 Primary Nurse role handed off by Jose Desai, RN vc 21:08 Eunice Romero RN is Primary Nurse. vc 21:57 Patient has correct armband on for positive identification. mg2 21:57 No provider procedures requiring assistance completed. mg2 23:30 IV discontinued, intact, bleeding controlled, No redness/swelling at site. Pressure vc dressing applied. 23:36 EKG done, by ED staff, reviewed by Carlos Pradhan MD. ds4 Administered Medications: 20:22 Drug: Zofran 4 mg Route: IVP; Site: left forearm; mg2 22:23 Follow up: Response: No adverse reaction vc 20:23 Drug: Pepcid 20 mg Route: IVP; Site: left forearm; mg2 22:24 Follow up: Response: No adverse reaction vc 20:23 Drug: Reglan 10 mg Route: IVP; Site: left forearm; mg2 22:23 Follow up: Response: No adverse reaction vc 20:23 Drug: Dilaudid 1 mg Route: IVP; Site: left forearm; mg2 22:23 Follow up: Response: No adverse reaction vc 20:24 Drug: NS 0.9% 1000 ml Route: IV; Rate: 1 bolus; Site: left forearm; mg2 22:22 Drug: Phenergan 12.5 mg Route: IVP; Site: left antecubital; vc 23:13 Follow up: Response: No adverse reaction vc 22:23 Drug: NS 0.9% 1000 ml Route: IV; Rate: 1 bolus; Site: left antecubital; vc 23:30 Follow up: IV Status: Completed infusion vc 22:30 Drug: Dilaudid 1 mg Route: IVP; Site: left antecubital; vc 23:13 Follow up: Response: No adverse reaction vc Outcome: 22:54 Discharge ordered by MD. kadeem 23:32 Discharged to home ambulatory, with significant other. vc 23:32 Condition: good 23:32 Discharge instructions given to patient, significant other, Instructed on discharge instructions, follow up and referral plans. medication usage, Demonstrated understanding of instructions, follow-up care, medications, Prescriptions given X 23:40 Patient left the ED. vc Signatures: Dispatcher [employer] EDCalros Sung MD MD cha Martinez, Amelia as Swanson, Donovan ds4 Jose Desai RN RN mg2 Eunice Romero RN RN vc
--- NOTE | 2019-03-17 22:56 | EDPHYS ---
Physician Documentation [facility] Name: Misa Tuttle Age: 43 yrs Sex: Female : 1975 Arrival Date: 03/17/2019 Time: 19:08 Bed 28 Private MD: HALI Physician Carlos Pradhan HPI: 03/17 21:47 This 43 yrs old Female presents to ER via Ambulatory with complaints of kadeem Abdominal Pain. 21:47 The patient presents with abdominal pain in the epigastric area, in the upper abdomen. kadeem Onset: The symptoms/episode began/occurred 2 day(s) ago. The symptoms radiate to right upper quadrant and left upper quadrant. Associated signs and symptoms: none. Severity of pain: At its worst the pain was moderate in the emergency department the pain is unchanged. The patient has not experienced similar symptoms in the past. 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 - Coronavirus screen:: The patient has NOT traveled to [place], [place], or [place] in the past 14 days. Proceed with normal triage process as indicated. The patient has NOT had contact with known/suspected case of Coronavirus? Proceed with normal triage procedures. - Social history:: Smoking status: Patient denies any tobacco usage or history of. Patient uses alcohol, but reports only rare drinking. Patient/guardian denies using street drugs, IV drugs. - Family history:: not pertinent. - Ebola Screening: : No symptoms or risks identified at this time. ROS: 21:47 Constitutional: Negative for fever, chills, and weight loss, Eyes: Negative for injury, kadeem pain, redness, and discharge, ENT: Negative for injury, pain, and discharge, Neck: Negative for injury, pain, and swelling, Cardiovascular: Negative for chest pain, palpitations, and edema, Respiratory: Negative for shortness of breath, cough, wheezing, and pleuritic chest pain, Back: Negative for injury and pain, : Negative for injury, bleeding, discharge, and swelling, MS/Extremity: Negative for injury and deformity, Skin: Negative for injury, rash, and discoloration, Neuro: Negative for headache, weakness, numbness, tingling, and seizure, Psych: Negative for depression, anxiety, suicide ideation, homicidal ideation, and hallucinations, Allergy/Immunology: Negative for hives, rash, and allergies, Endocrine: Negative for neck swelling, polydipsia, polyuria, polyphagia, and marked weight changes. 21:47 Abdomen/GI: Positive for abdominal pain, of the epigastric area, right upper quadrant and left upper quadrant. Exam: 21:47 Constitutional: This is a well developed, well nourished patient who is awake, alert, kadeem and in no acute distress. Head/Face: Normocephalic, atraumatic. Eyes: Pupils equal round and reactive to light, extra-ocular motions intact. Lids and lashes normal. Conjunctiva and sclera are non-icteric and not injected. Cornea within normal limits. Periorbital areas with no swelling, redness, or edema. ENT: Nares patent. No nasal discharge, no septal abnormalities noted. Tympanic membranes are normal and external auditory canals are clear. Oropharynx with no redness, swelling, or masses, exudates, or evidence of obstruction, uvula midline. Mucous membranes moist. Neck: Trachea midline, no thyromegaly or masses palpated, and no cervical lymphadenopathy. Supple, full range of motion without nuchal rigidity, or vertebral point tenderness. No Meningismus. Chest/axilla: Normal chest wall appearance and motion. Nontender with no deformity. No lesions are appreciated. Cardiovascular: Regular rate and rhythm with a normal S1 and S2. No gallops, murmurs, or rubs. Normal PMI, no JVD. No pulse deficits. Respiratory: Lungs have equal breath sounds bilaterally, clear to auscultation and percussion. No rales, rhonchi or wheezes noted. No increased work of breathing, no retractions or nasal flaring. Back: No spinal tenderness. No costovertebral tenderness. Full range of motion. Skin: Warm, dry with normal turgor. Normal color with no rashes, no lesions, and no evidence of cellulitis. MS/ Extremity: Pulses equal, no cyanosis. Neurovascular intact. Full, normal range of motion. Neuro: Awake and alert, GCS 15, oriented to person, place, time, and situation. Cranial nerves II-XII grossly intact. Motor strength 5/5 in all extremities. Sensory grossly intact. Cerebellar exam normal. Normal gait. Psych: Awake, alert, with orientation to person, place and time. Behavior, mood, and affect are within normal limits. 21:47 Abdomen/GI: Inspection: abdomen appears normal, Bowel sounds: normal, Palpation: moderate abdominal tenderness, in the epigastric area, right upper quadrant and left upper quadrant, Liver: no appreciated palpable abnormalities, Hernia: not appreciated. Vital Signs: 19:27 BP 109 / 73; Pulse 81; Resp 18; Temp 98; Pulse Ox 97% on R/A; Weight 74.84 kg; Height 5 mg2 ft. 5 in. (165.10 cm); Pain 9/10; 21:30 BP 109 / 73; Pulse 80; Resp 18; Pulse Ox 100% on R/A; vc 22:30 BP 113 / 74; Pulse 89; Resp 15; Pulse Ox 98% on R/A; vc 23:30 BP 108 / 69; Pulse 81; Resp 18; Pulse Ox 100% on R/A; vc 19:27 Body Mass Index 27.46 (74.84 kg, 165.10 cm) mg2 MDM: 19:18 Patient medically screened. [facility] 21:50 Data reviewed: vital signs, nurses notes, lab test result(s), EKG, radiologic studies, kadeem plain films. 03/17 19:29 Order name: Basic Metabolic Panel; Complete Time: 22:49 mg2 03/17 19:29 Order name: CBC with Diff; Complete Time: 22:49 mg2 03/17 19:29 Order name: Creatinine for Radiology; Complete Time: 22:49 mg2 03/17 19:29 Order name: Hepatic Function; Complete Time: 22:49 mg2 03/17 19:29 Order name: Lipase; Complete Time: 22:49 mg2 03/17 20:11 Order name: Urine Dipstick--Ancillary (enter results); Complete Time: 22:49 ar5 03/17 19:35 Order name: Abdomen Acute Series XRAY; Complete Time: 22:49 kadeem 03/17 21:46 Order name: Troponin (emerg Dept Use Only); Complete Time: 22:49 kadeem 03/17 19:29 Order name: IV Saline Lock; Complete Time: 20:02 mg2 03/17 19:29 Order name: Labs collected and sent; Complete Time: 20:03 mg2 03/17 19:29 Order name: Urine Dipstick-Ancillary (obtain specimen); Complete Time: 20:02 mg2 03/17 22:56 Order name: EKG; Complete Time: 22:56 kadeem 03/17 22:56 Order name: EKG - Nurse/Tech; Complete Time: 23:30 [facility] Administered Medications: 20:22 Drug: Zofran 4 mg Route: IVP; Site: left forearm; mg2 22:23 Follow up: Response: No adverse reaction vc 20:23 Drug: Pepcid 20 mg Route: IVP; Site: left forearm; mg2 22:24 Follow up: Response: No adverse reaction vc 20:23 Drug: Reglan 10 mg Route: IVP; Site: left forearm; mg2 22:23 Follow up: Response: No adverse reaction vc 20:23 Drug: Dilaudid 1 mg Route: IVP; Site: left forearm; mg2 22:23 Follow up: Response: No adverse reaction vc 20:24 Drug: NS 0.9% 1000 ml Route: IV; Rate: 1 bolus; Site: left forearm; mg2 22:22 Drug: Phenergan 12.5 mg Route: IVP; Site: left antecubital; vc 23:13 Follow up: Response: No adverse reaction vc 22:23 Drug: NS 0.9% 1000 ml Route: IV; Rate: 1 bolus; Site: left antecubital; vc 23:30 Follow up: IV Status: Completed infusion vc 22:30 Drug: Dilaudid 1 mg Route: IVP; Site: left antecubital; vc 23:13 Follow up: Response: No adverse reaction vc Disposition: 03/17/19 22:54 Discharged to Home. Impression: Abdominal tenderness, Functional dyspepsia. - Condition is Stable. - Discharge Instructions: Abdominal Pain, Adult, Nausea and Vomiting, Adult, Abdominal Pain, Adult, [id number]. - Prescriptions for Bentyl 20 mg Oral Tablet - take 1 tablet by ORAL route every 6 hours As needed; 20 tablet. Protonix 40 mg Oral Tablet - take 1 tablet by ORAL route once daily; 30 tablet. Tylenol- Codeine #3 300-30 mg Oral Tablet - take 2 tablets by ORAL route every 6 hours As needed; 26 tablet. Zofran 4 mg Oral Tablet - take 1 tablet by ORAL route every 12 hours As needed; 20 tablet. - Medication Reconciliation Form, Thank You Letter, Antibiotic Education, Prescription Opioid Use form. - Follow up: Private Physician; When: 2 - 3 days; Reason: Recheck today's complaints, Continuance of care, Re-evaluation by your physician. - Problem is new. - Symptoms have improved. Signatures: Dispatcher [employer] EDSD Carlos Pradhan MD MD cha Gardose, Michele RN RN [facility] Eunice Romero RN RN vc Corrections: (The following items were deleted from the chart) 23:40 22:54 03/17/2019 22:54 Discharged to Home. Impression: Abdominal tenderness; Functional vc dyspepsia. Condition is Stable. Discharge Instructions: Abdominal Pain, Adult, Nausea and Vomiting, Adult, Abdominal Pain, Adult, [id number]. Prescriptions for Bentyl 20 mg Oral Tablet - take 1 tablet by ORAL route every 6 hours As needed; 20 tablet, Protonix 40 mg Oral Tablet - take 1 tablet by ORAL route once daily; 30 tablet, Tylenol-Codeine #3 300-30 mg Oral Tablet - take 2 tablets by ORAL route every 6 hours As needed; 26 tablet, Zofran 4 mg Oral Tablet - take 1 tablet by ORAL route every 12 hours As needed; 20 tablet. and Forms are Medication Reconciliation Form, Thank You Letter, Antibiotic Education, Prescription Opioid Use. Follow up: Private Physician; When: 2 - 3 days; Reason: Recheck today's complaints, Continuance of care, Re-evaluation by your physician. Problem is new. Symptoms have improved. kadeem
[2019-03-18 01:29] VITALS: TEMP 98
[2019-03-18 01:34] VITALS: BP 108/69; O2SAT 100
--- NOTE | 2019-03-18 13:47 | EKG ---
Test Date: 2019-03-17 Test Time: 23:34:29 Sprayer Machine: MADHU MEASUREMENT RESULTS: Intervals: Rate: 66 MI: 176 QRSD: 92 QT: 434 QTc: 454 Guild: P: 23 MI: 176 QRS: 5 T: 2 INTERPRETIVE STATEMENTS: Normal sinus rhythm Cannot rule out Anterior infarct, age undetermined Abnormal ECG Compared to ECG 11/03/2017 07:50:31 Myocardial infarct finding now present Electronically Signed On 03-18-19 13:45:43 [employer]CRET[employer] by Kj Barker
== END 2019-03-17 23:40 | disposition home or self-care (01) ==
LOC: ER 19:06
DX: K30 Functional dyspepsia (principal); Z88.6 Allergy status to analgesic agent; I10 Essential (primary) hypertension; K21.9 Gastro-esophageal reflux disease without esophagitis
CPT/HCPCS: 96361; 93005; 85025; 80048; 36415; 80076; 81003; 84484; 83690; 74022; 96375; 96374; 99284; J2765; J2550; J1170 ×2; J7030 ×2; J2405

== ENCOUNTER 2019-05-13 10:05 | Emergency (ER) | payer BC ==
[2019-05-13] MEDS ORDERED: KETOROLAC 30 MG/ML INJ ONE (10:40)
[2019-05-13] MEDS ORDERED: ONDANSETRON 4 MG/2 ML VIAL ONE (10:41)
[2019-05-13 10:51] LABS: Urine Blood TRACE (NEG); Urine Glucose NEGATIVE (NEG); Urine Protein NEGATIVE (NEG)
[2019-05-13 10:59] LABS: Basophils % 0.2 % (0-1.3); Hematocrit 38.6 % (36.0-45.0); Lymphocytes % 34.8 % (15.3-44.8); MPV 9.7 fL (7.6-11.3); RBC Red Blood Cell Count 4.27 M/uL (3.86-4.86)
[2019-05-13 11:05] LABS: Urine Bacteria <20 /HPF (<20)
[2019-05-13 11:06] LABS: Urine Culture Reflex Order NOT NEEDED; Urine Mucus 1+ /HPF (NONE SEEN)
--- NOTE | 2019-05-13 11:13 | RAD REPORT ---
EXAM DESCRIPTION: CT - Stone Protocol - 05/13/2019 10:58 am CLINICAL HISTORY: Flank pain. FLANK PAIN COMPARISON: Abdomen Pelvis W Contrast dated 10/27/2017 TECHNIQUE: Axial images were obtained without oral or IV contrast. Lack of contrast limits solid org an and vascular assessment. The [id number] spans the entirety of the system partially obscuring uppermost abdomen and lung bases. Coronal reformatted images were obtained and reviewed. All CT scans are performed using dose optimization technique as appropriate and may include automated exposure control or mA/KV adjustment according to patient size. FINDINGS: The lower lung lemon are clear. Cholecystectomy clips. Imaged portions of the liver and spleen show no suspicious findings on non-contrast imaging. Mild fat ty infiltration of the pancreas. The adrenal glands are normal. No pathologic lymphadenopathy in the abdomen or pelvis. No urinary tract stones or obstructive uropathy. No bowel obstruction, free air, free fluid or abscess. Sigmoid diverticulosis without diverticulitis. Normal appendix noted. No significant bony abnormality. IMPRESSION: No urinary tract stones or obstructive uropathy.
[2019-05-13 11:17] LABS: ALT/SGPT 207 U/L (12-78); AST/SGOT 156 U/L (15-37); Albumin 3.6 g/dL (3.4-5.0); Alkaline Phosphatase 138 U/L (45-117); BUN Blood Urea Nitrogen 6 mg/dL (7-18); Bicarbonate 33 mmol/L (21-32); Bilirubin Direct 0.2 mg/dL (0-0.2); Bilirubin Total 0.6 mg/dL (0.2-1.0); Glucose Level 95 mg/dL (74-106); Lipase 190 U/L (73-393); Potassium 3.2 mmol/L (3.5-5.1); Protein, Total 8.3 g/dL (6.4-8.2); Sodium Level 141 mmol/L (136-145)
[2019-05-13] MEDS ORDERED: FENTANYL CITR 100 MCG/2 ML ONE ×3 (11:19→13:46)
[2019-05-13] MEDS ORDERED: NA CHLORIDE 0.9% 1,000 ML ONE ×2 (11:19→13:46)
--- NOTE | 2019-05-13 12:59 | RAD REPORT ---
EXAM DESCRIPTION: US - Abdomen Exam Limited - 05/13/2019 12:47 pm CLINICAL HISTORY: Abdominal pain. Elevated liver function test enzymes FINDINGS: Hepatic echotexture increased. The liver is mildly enlarged Common bile duct measures 10 millimeters. Cholecystectomy IMPRESSION: Increased hepatic echotexture consistent with fatty infiltration Mild hepatomegaly Prominent common bile duct may be physiologic in this patient status post cholecystectomy. Pathology such as a stricture can also result in this appearance
[2019-05-13] MEDS ORDERED: PROMETHAZINE INJ 25 MG/ML AMP ONE (13:20)
[2019-05-13] MEDS ORDERED: HYDROMORPHONE HCL 0.5 MG/0.5 ML INJ ONE ×2 (15:19→16:50)
--- NOTE | 2019-05-13 16:26 | ER ---
Nurse's Notes [facility] Name: Misa Tony Age: 43 yrs Sex: Female : 1975 Arrival Date: 05/13/2019 Time: 10:16 Bed 5 Private MD: Diagnosis: Upper abdominal pain, unspecified;Abnormal results of liver function studies Presentation: 05/12 10:16 Chief complaint: Patient states: R mid back pain that radiates towards R side of ss abdomen x 3 days. Pt reports a history of kidney stones and states that this feels similar. Coronavirus screen: Patient denies fever greater than 100.4F, cough, shortness of breath, or difficulty breathing. Proceed with normal triage process. Ebola Screen: Patient denies exposure to infectious person. Patient denies travel to an Ebola-affected area in the 21 days before illness onset. Initial Sepsis Screen: Does the patient meet any 2 criteria? No. Patient's initial sepsis screen is negative. Does the patient have a suspected source of infection? No. Patient's initial sepsis screen is negative. Risk Assessment: Do you want to hurt yourself or someone else? Patient reports no desire to harm self or others. 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 - Social history:: Smoking status: Patient denies any tobacco usage or history of. Screenin:30 Abuse screen: Denies threats or abuse. Nutritional screening: No deficits noted. aa5 Tuberculosis screening: No symptoms or risk factors identified. Fall Risk None identified. Assessment: 10:30 General: Appears uncomfortable, Behavior is calm, cooperative. Pain: Complains of pain aa5 in right mid back Pain radiates to right upper quadrant and right lower quadrant Pain currently is 9 out of 10 on a pain scale. Quality of pain is described as sharp, shooting, Pain began 2-3 days ago. Is continuous. Neuro: Level of Consciousness is awake, alert, obeys commands, Oriented to person, place, time, situation. Cardiovascular: Heart tones S1 S2 present Rhythm is regular. Respiratory: Airway is patent Respiratory effort is even, unlabored, Respiratory pattern is regular, symmetrical. GI: Abdomen is round non-distended, Bowel sounds present X 4 quads. Abd is soft and non tender X 4 quads. Reports nausea. : Denies burning with urination, inability to void, urinary frequency, urgency. EENT: No signs and/or symptoms were reported regarding the EENT system. Derm: Skin is pink, warm \\T\\ dry. Musculoskeletal: Range of motion: intact in all extremities. 11:05 Reassessment: Patient is alert, oriented x 3, equal unlabored respirations, skin aa5 warm/dry/pink. Patient states symptoms have not improved. Pt requesting pain medication, provider notified. . 11:05 General: Appears uncomfortable. aa5 12:47 Reassessment: Patient appears in no apparent distress at this time. Patient and/or hb family updated on plan of care and expected duration. Pain level reassessed. Patient is alert, oriented x 3, equal unlabored respirations, skin warm/dry/pink. 14:05 Reassessment: Patient appears in no apparent distress at this time. Patient and/or hb family updated on plan of care and expected duration. Pain level reassessed. Patient is alert, oriented x 3, equal unlabored respirations, skin warm/dry/pink. 15:02 Reassessment: Patient appears in no apparent distress at this time. Patient and/or hb family updated on plan of care and expected duration. Pain level reassessed. Patient is alert, oriented x 3, equal unlabored respirations, skin warm/dry/pink. 15:15 Reassessment: Patient is alert, oriented x 3, equal unlabored respirations, skin aa5 warm/dry/pink. Patient states symptoms have not improved. Provider notified. . 15:20 Reassessment: Acceptance to [facility], pt notified and pt requesting transfer aa5 to [facility], provider was notified. Pt states "my doctor is from [place]". . 16:30 Reassessment: Patient is alert, oriented x 3, equal unlabored respirations, skin aa5 warm/dry/pink. Pt states feeling a little better, rates pain 8/10. . 16:48 Reassessment: Pt accepted to [facility] (pt's doctor goes there), pt aa5 notified. . 17:40 Reassessment: Patient is alert, oriented x 3, equal unlabored respirations, skin aa5 warm/dry/pink. Vital Signs: 09:45 BP 149 / 103; Pulse 89; Resp 16; Pulse Ox 97% on R/A; mh5 10:16 BP 105 / 79; Pulse 86; Resp 16; Temp 97.7(TE); Pulse Ox 99% on R/A; Weight 79.38 kg; ss Height 5 ft. 5 in. (165.10 cm); Pain 9/10; 11:15 BP 95 / 67; Pulse 79; Resp 16 S; Pulse Ox 96% on R/A; Pain 9/10; aa5 12:15 BP 94 / 72; Pulse 76; Resp 16; Pulse Ox 99% on R/A; hb 13:30 BP 104 / 68; Pulse 77; Resp 15; Pulse Ox 99% on R/A; Pain 9/10; hb 15:20 BP 120 / 85; Pulse 76; Resp 15; Pulse Ox 99% ; hb 16:24 BP 114 / 78; Pulse 78; Resp 17; Temp 97.6(TE); Pulse Ox 97% on R/A; mh5 17:20 BP 123 / 85; Pulse 80; Resp 18 S; Pulse Ox 98% on R/A; aa5 10:16 Body Mass Index 29.12 (79.38 kg, 165.10 cm) ED Course: 10:16 Patient arrived in ED. ss 10:17 Triage completed. ss 10:17 Arm band placed on right wrist. ss 10:18 Carlos Trinidad PA is PHCP. cp 10:18 Cade Hull MD is Attending Physician. cp 10:22 Marleni Ortiz, VINOD is Primary Nurse. aa5 10:40 Inserted saline lock: 22 gauge in left antecubital area, using aseptic technique. aa5 10:40 Initial lab(s) drawn, by me, sent to lab. aa5 10:58 CT Stone Protocol In Process Unspecified. EDMS 11:14 Patient has correct armband on for positive identification. Placed in gown. Bed in low mh5 position. Call light in reach. Side rails up X 1. Warm blanket given. Pulse ox on. NIBP on. 11:14 Urine collected: clean catch specimen, clear. mh5 12:48 US Abdomen Limited In Process Unspecified. EDMS 13:35 initiated a transfer with Rubina from the [facility] [place]. eb 14:06 connected the GI extension worker for [facility] with Carlos HANSEN for patient transfer eb consultation. 14:29 administrative approval given by Rubina Pradhan/ Patient has been accepted to [facility] bed 1506/ Hannah Paige has accepted the patient in transfer/ report to be called to be called to [phone]. 14:[address] Cruz/ both offices [phone]/ and [phone]/ message eb left to please call er when available. 17:40 No provider procedures requiring assistance completed. Patient transferred, IV remains aa5 in place. Administered Medications: 10:40 Drug: Zofran (Ondansetron) 4 mg Route: IVP; Site: left antecubital; aa5 11:05 Follow up: Response: No adverse reaction aa5 10:42 Drug: TORadol - Ketorolac 15 mg Route: IVP; Site: left antecubital; aa5 11:05 Follow up: Response: No adverse reaction; Pain is unchanged, physician notified aa5 11:18 Drug: fentaNYL (PF) 25 mcg Route: IVP; Site: left antecubital; aa5 11:25 Follow up: Response: No adverse reaction aa5 11:18 Drug: NS 0.9% 1000 ml Route: IV; Rate: 1 bolus; Site: left antecubital; aa5 13:55 Follow up: IV Status: Completed infusion; IV Intake: 1000ml aa5 12:11 Drug: fentaNYL (PF) 25 mcg Route: IVP; Site: right antecubital; hb 12:20 Follow up: Response: No adverse reaction aa5 13:17 Drug: Phenergan 25 mg Route: IVP; Site: left antecubital; aa5 13:50 Follow up: Response: No adverse reaction aa5 13:50 Drug: fentaNYL (PF) 25 mcg Route: IVP; Site: left antecubital; hb 13:55 Follow up: Response: No adverse reaction aa5 13:50 Drug: NS 0.9% 1000 ml Route: IV; Rate: 1 bolus; Site: left antecubital; hb 15:18 Follow up: IV Status: Completed infusion; IV Intake: 1000ml [facility] 15:17 Drug: Dilaudid 0.5 mg Route: IVP; Site: left antecubital; [facility] 15:19 Follow up: Response: No adverse reaction aa5 15:57 Drug: Potassium Effervescent Tablet 50 mEq Route: PO; hb 16:57 Drug: Dilaudid 0.5 mg Route: IVP; Site: left antecubital; hb Intake: 13:55 IV: 1000ml; Total: 1000ml. aa5 15:18 IV: 1000ml; Total: 2000ml. 5 Outcome: 16:25 ER care complete, transfer ordered by MD. cp 17:40 Transferred by ground EMS Transfer form completed. X-rays sent w/ patient. Note: To aa5 [facility]. Report given to [facility] 17:40 Condition: stable 17:40 Instructed on the need for transfer, Demonstrated understanding of instructions. 17:43 Patient left the ED. 5 Signatures: Dispatcher [employer] EDMS Marleni Ortiz RN RN [facility] Kimberlee Brandt RN RN ss Page, Corey, PA PA cp Baxter, Heather, VINOD RN Komal Jean [facility] Nelly Gupta Corrections: (The following items were deleted from the chart) 16:25 16:24 BP 114 / 78; Pulse 78bpm; Resp 17bpm; Pulse Ox 97% RA; [place] [id number] 17:03 16:48 Reassessment: Pt accepted to [facility], pt notified. . 5 [facility]
--- NOTE | 2019-05-13 16:27 | EDPHYS ---
Physician Documentation [facility] Name: Misa Tony Age: 43 yrs Sex: Female : 1975 Arrival Date: 05/13/2019 Time: 10:16 Bed 5 Private MD: ED Physician Cade Hull HPI: 05/12 10:33 This 43 yrs old Female presents to ER via Ambulatory with complaints of Flank cp Pain. 10:33 The patient complains of pain in the right flank. The pain radiates to the abdomen. cp Onset: The symptoms/episode began/occurred 3 day(s) ago. Associated signs and symptoms: Pertinent positives: nausea, vomiting, Pertinent negatives: diarrhea, fever, headache, pain radiating to the lower extremities. The patient has experienced similar episodes in the past, today's symptoms are similar, to when the patient was apparently diagnosed with kidney stone. NURSE INFECTION CONTROL: 10:30 LMP N/A - Hysterectomy aa5 Historical: - Allergies: 10:17 Morphine; ss - PMHx: 10:17 blood clot in Axilla; Endometrosis; gastritis; GERD; Hypertension; Pancreatitis; ss - PSHx: 10:17 Cholecystectomy; Hysterectomy; ss - Immunization history:: Adult Immunizations up to date. - Social history:: Smoking status: Patient denies any tobacco usage or history of. ROS: 10:40 Constitutional: Negative for body aches, chills, fever, poor PO intake. cp 10:40 Eyes: Negative for injury, pain, redness, and discharge. cp 10:40 ENT: Negative for drainage from ear(s), ear pain, sore throat, difficulty swallowing, difficulty handling secretions. 10:40 Cardiovascular: Negative for chest pain, palpitations. 10:40 Respiratory: Negative for cough, shortness of breath, wheezing. 10:40 Abdomen/GI: Positive for abdominal pain, nausea and vomiting, of the right upper quadrant, Negative for diarrhea, constipation. 10:40 Back: Positive for radiated pain, of the right mid back. 10:40 : Positive for flank pain, Negative for urinary symptoms. 10:40 Skin: Negative for rash. 10:40 Neuro: Negative for altered mental status, headache, weakness. 10:40 All other systems are negative. Exam: 10:45 Constitutional: The patient appears in no acute distress, alert, awake, non-toxic, well cp developed, well nourished, uncomfortable. 10:45 Head/Face: Normocephalic, atraumatic. cp 10:45 Eyes: Periorbital structures: appear normal, Conjunctiva: normal, no exudate, no injection, Sclera: no appreciated abnormality, Lids and lashes: appear normal, bilaterally. 10:45 ENT: External ear(s): are unremarkable, Nose: is normal, Mouth: is normal, Posterior pharynx: is normal, airway is patent, no erythema, no exudate. 10:45 Chest/axilla: Inspection: normal, Palpation: is normal, no crepitus, no tenderness. 10:45 Cardiovascular: Rate: normal, Rhythm: regular. 10:45 Respiratory: the patient does not display signs of respiratory distress, Respirations: normal, no use of accessory muscles, no retractions, labored breathing, is not present, Breath sounds: are clear throughout, no decreased breath sounds, no stridor, no wheezing. 10:45 Abdomen/GI: Inspection: abdomen appears normal, Bowel sounds: active, all quadrants, Palpation: soft, in all quadrants, moderate abdominal tenderness, in the right upper quadrant, rebound tenderness, is not appreciated, voluntary guarding, is elicited in the right upper quadrant. 10:45 Back: pain, that is moderate, of the right mid back. 10:45 Skin: no rash present. Vital Signs: 09:45 BP 149 / 103; Pulse 89; Resp 16; Pulse Ox 97% on R/A; mh5 10:16 BP 105 / 79; Pulse 86; Resp 16; Temp 97.7(TE); Pulse Ox 99% on R/A; Weight 79.38 kg; ss Height 5 ft. 5 in. (165.10 cm); Pain 9/10; 11:15 BP 95 / 67; Pulse 79; Resp 16 S; Pulse Ox 96% on R/A; Pain 9/10; aa5 12:15 BP 94 / 72; Pulse 76; Resp 16; Pulse Ox 99% on R/A; hb 13:30 BP 104 / 68; Pulse 77; Resp 15; Pulse Ox 99% on R/A; Pain 9/10; hb 15:20 BP 120 / 85; Pulse 76; Resp 15; Pulse Ox 99% ; hb 16:24 BP 114 / 78; Pulse 78; Resp 17; Temp 97.6(TE); Pulse Ox 97% on R/A; mh5 17:20 BP 123 / 85; Pulse 80; Resp 18 S; Pulse Ox 98% on R/A; aa5 10:16 Body Mass Index 29.12 (79.38 kg, 165.10 cm) ss MDM: 10:26 Patient medically screened. cp 10:45 Differential diagnosis: nephrolithiasis, pyelonephritis, UTI, pancreatitis, cp choledocholithiasis. 13:30 Data reviewed: vital signs, nurses notes, lab test result(s), radiologic studies, cp ultrasound, I have discussed the patient's presentation/case with the attending Emergency Department Physician; and as a result, I will transfer patient for GI consult. 05/12 10:28 Order name: Urine Microscopic Only; Complete Time: 11:10 05/12 13:16 Interpretation: Normal except: URBC 5-10; SQEPI 10-20. 05/12 10:32 Order name: Basic Metabolic Panel; Complete Time: 11:44 05/12 11:44 Interpretation: Normal except: K 3.2; CO2 33; BUN 6. 05/12 10:32 Order name: CBC with Diff; Complete Time: 11:10 05/12 10:32 Order name: Creatinine for Radiology; Complete Time: 11:44 05/12 10:32 Order name: Hepatic Function; Complete Time: 11:44 05/12 11:44 Interpretation: Normal except: AST 156; ALT 207; ALK 138; TP 8.3; GLOB 4.7; A/G 0.8. 05/12 10:32 Order name: Lipase; Complete Time: 11:44 05/12 10:32 Order name: CT Stone Protocol; Complete Time: 11:44 05/12 10:44 Order name: Urine Dipstick--Ancillary (enter results); Complete Time: 11:10 05/12 11:47 Order name: US Abdomen Limited; Complete Time: 13:15 05/12 10:28 Order name: Urine Dipstick-Ancillary (obtain specimen); Complete Time: 11:03 05/12 10:32 Order name: IV Saline Lock; Complete Time: 11:03 05/12 10:32 Order name: Labs collected and sent; Complete Time: 11:03 cp Administered Medications: 10:40 Drug: Zofran (Ondansetron) 4 mg Route: IVP; Site: left antecubital; aa5 11:05 Follow up: Response: No adverse reaction aa5 10:42 Drug: TORadol - Ketorolac 15 mg Route: IVP; Site: left antecubital; aa5 11:05 Follow up: Response: No adverse reaction; Pain is unchanged, physician notified aa5 11:18 Drug: fentaNYL (PF) 25 mcg Route: IVP; Site: left antecubital; aa5 11:25 Follow up: Response: No adverse reaction aa5 11:18 Drug: NS 0.9% 1000 ml Route: IV; Rate: 1 bolus; Site: left antecubital; aa5 13:55 Follow up: IV Status: Completed infusion; IV Intake: 1000ml aa5 12:11 Drug: fentaNYL (PF) 25 mcg Route: IVP; Site: right antecubital; hb 12:20 Follow up: Response: No adverse reaction aa5 13:17 Drug: Phenergan 25 mg Route: IVP; Site: left antecubital; aa5 13:50 Follow up: Response: No adverse reaction aa5 13:50 Drug: fentaNYL (PF) 25 mcg Route: IVP; Site: left antecubital; hb 13:55 Follow up: Response: No adverse reaction aa5 13:50 Drug: NS 0.9% 1000 ml Route: IV; Rate: 1 bolus; Site: left antecubital; hb 15:18 Follow up: IV Status: Completed infusion; IV Intake: 1000ml aa5 15:17 Drug: Dilaudid 0.5 mg Route: IVP; Site: left antecubital; aa5 15:19 Follow up: Response: No adverse reaction aa5 15:57 Drug: Potassium Effervescent Tablet 50 mEq Route: PO; hb 16:57 Drug: Dilaudid 0.5 mg Route: IVP; Site: left antecubital; hb Disposition: 18:47 Co-signature as Attending Physician, Cade Hull MD I agree with the assessment and kdr plan of care. Disposition: 05/13/19 16:25 Transfer ordered to [facility]. Diagnosis are Upper abdominal pain, unspecified, Abnormal results of liver function studies. - Reason for transfer: Higher level of care. - Accepting physician is DR Hernadez. - Condition is Stable. - Problem is new. - Symptoms have improved. Signatures: Dispatcher [employer] EDMS Cade Hull MD MD [facility] Marleni Ortiz RN RN aa5 Kimberlee Brandt RN RN Carlos Trinidad PA PA cp Kathy Oconnell, RN RN Corrections: (The following items were deleted from the chart) 17:02 16:25 05/13/2019 16:25 Transfer ordered to [facility]. Diagnosis is Upper cp abdominal pain, unspecified; Abnormal results of liver function studies. Reason for transfer: Higher level of care. Accepting physician is DR Cruz. Condition is Stable. Problem is new. Symptoms have improved. cp 17:43 17:02 05/13/2019 16:25 Transfer ordered to [facility]. Diagnosis is Upper aa5 abdominal pain, unspecified; Abnormal results of liver function studies. Reason for transfer: Higher level of care. Accepting physician is DR Hernadez. Condition is Stable. Problem is new. Symptoms have improved. cp
[2019-05-13] MEDS ORDERED: POTASSIUM 25 MEQ EFFERV TAB ONE (16:50)
[2019-05-13 18:14] VITALS: BP 114/78; TEMP 97.6; O2SAT 97
== END 2019-05-13 17:43 | disposition short-term general hospital (02) ==
LOC: ER 10:05
DX: R94.5 Abnormal results of liver function studies (principal); I10 Essential (primary) hypertension; Z88.5 Allergy status to narcotic agent
CPT/HCPCS: 96361; 85025; 80048; 36415; 80076; 83690; 76377; 74176; 76705; 96375; 96374; 99285; J2550; J3010 ×3; J1170 ×2; J7030 ×2; J2405; 81003; 81015

== ENCOUNTER 2019-06-07 13:07 | Emergency (ER) | payer BC ==
[2019-06-07 14:19] LABS: Absolute Lymphocytes (CBC) 3.1 K/uL (0.7-4.9); Basophils % 0.6 % (0-1.3); Hematocrit 39.1 % (36.0-45.0); Lymphocytes % 34.1 % (15.3-44.8); MPV 9.6 fL (7.6-11.3); RBC Red Blood Cell Count 4.41 M/uL (3.86-4.86)
[2019-06-07] MEDS ORDERED: HYDROMORPHONE HCL 2 MG/ML inj ONE (14:30)
[2019-06-07] MEDS ORDERED: NA CHLORIDE 0.9% 100 ML IV ONE (14:30)
[2019-06-07] MEDS ORDERED: ONDANSETRON 4 MG/2 ML VIAL ONE (14:30)
[2019-06-07 14:40] LABS: ALT/SGPT 52 U/L (12-78); AST/SGOT 32 U/L (15-37); Albumin 3.8 g/dL (3.4-5.0); Alkaline Phosphatase 103 U/L (45-117); BUN Blood Urea Nitrogen 7 mg/dL (7-18); Bicarbonate 31 mmol/L (21-32); Bilirubin Direct < 0.1 mg/dL (0-0.2); Glucose Level 81 mg/dL (74-106); Lipase 101 U/L (73-393); Potassium 3.7 mmol/L (3.5-5.1); Protein, Total 8.4 g/dL (6.4-8.2); Sodium Level 140 mmol/L (136-145)
[2019-06-07 14:44] LABS: Bilirubin Total 0.2 mg/dL (0.2-1.0)
--- NOTE | 2019-06-07 15:36 | RAD REPORT ---
EXAM DESCRIPTION: CT - Abdomen W Contrast CLINICAL HISTORY: RUQ pain;Abd pain Abdominal pain COMPARISON: Stone Protocol dated 05/13/[address] scans are performed using dose optimization technique as appropriate and may includ e automated exposure control or mA/KV adjustment according to patient size. FINDINGS: The lower lung lemon are clear. Diffuse fatty liver is seen. Cholecystectomy clips are present. The common bile duct is prominent in size measuring 12 mm. Spleen is normal in size. Fatty infiltration affects the pancreas. The adrenal glands and kidneys are within normal limits. No free fluid, bowel obstruction or free air. No significant adenopathy in the abdomen. No significant bony finding. IMPRESSION: Diffuse fatty liver. Cholecystectomy with mildly prominent 12 mm common bile duct.
--- NOTE | 2019-06-07 16:20 | ER ---
Nurse's Notes [facility] Name: Misa Tony Age: 43 yrs Sex: Female : 1975 Arrival Date: 06/07/2019 Time: 13:09 Bed 19 Private MD: Diagnosis: Abdominal and pelvic pain Presentation: 06/06 13:27 Chief complaint: Patient states: States she has a known gallstone in a duct near her ll1 liver. Seen here last month, transferred to [place]. Unable to due surgery related to covid. RUQ abd continues, worse today. Coronavirus screen: Proceed with normal triage. Patient denies a cough. Patient denies shortness of breath or difficulty breathing. Patient denies measured and/or subjective temperature greater than 100.4F prior to today's visit. Patient denies travel on a cruise ship or to a country the [facility] currently lists as an affected area. Patient denies contact with known and/or suspected case of COVID-19. Ebola Screen: Patient denies travel to an Ebola-affected area in the 21 days before illness onset. Initial Sepsis Screen: Does the patient meet any 2 criteria? HR > 90 bpm. Risk Assessment: Do you want to hurt yourself or someone else? Patient reports no desire to harm self or others. Onset of symptoms was May 04, 2019. 13:27 Method Of Arrival: Ambulatory [facility] 13:27 Acuity: ELADIO 3 ll1 22:41 Initial Sepsis Screen: Does the patient have a suspected source of infection? No. ah Patient's initial sepsis screen is negative. Historical: - Allergies: 13:30 Morphine; ll1 - PMHx: 13:30 Hypertension; gastritis; Pancreatitis; GERD; Endometrosis; blood clot in Axilla; ll1 - PSHx: 13:30 Hysterectomy; Cholecystectomy; ll1 - Immunization history:: Adult Immunizations up to date. - Social history:: Patient/guardian denies using alcohol, street drugs, tobacco products, Smoking status: unknown. Screenin:15 Nutritional screening: No deficits noted. Tuberculosis screening: No symptoms or risk ah factors identified. 16:15 Abuse screen: Denies threats or abuse. Fall Risk None identified. Assessment: 13:40 General: Appears distressed, uncomfortable, Behavior is cooperative, appropriate for age. Pain: Complains of pain in right lower quadrant Pain currently is 10 out of 10 on a pain scale. Quality of pain is described as sharp, Is continuous, Alleviated by nothing. Neuro: Level of Consciousness is awake, alert, Oriented to person, place, time, situation. Cardiovascular: Heart tones S1 S2 present Capillary refill < 3 seconds Patient's skin is warm and dry. Respiratory: Airway is patent Respiratory effort is even, unlabored, Respiratory pattern is regular, symmetrical, Breath sounds are clear. GI: Abdomen is Last BM was June 06, 2019. Bowel sounds present X 4 quads. Abdomen is tender to palpation in right lower quadrant. : No signs and/or symptoms were reported regarding the genitourinary system. EENT: No signs and/or symptoms were reported regarding the EENT system. Derm: No signs and/or symptoms reported regarding the dermatologic system. Musculoskeletal: No signs and/or symptoms reported regarding the musculoskeletal system. 14:45 Reassessment: Patient and/or family updated on plan of care and expected duration. Pain ah level reassessed. Patient is alert, oriented x 3, equal unlabored respirations, skin warm/dry/pink. 1445. 16:00 Reassessment: Discharge instructions given to pt and educated on prescriptions and the importance of following up with her MD. Pt voiced understanding. Vital Signs: 13:27 BP 129 / 79; Pulse 95; Resp 18; Temp 98.0; Pulse Ox 99% ; Pain 10/10; ll1 ED Course: 13:09 Patient arrived in ED. as 13:29 Triage completed. ll1 13:31 Arm band placed on Patient placed in an exam room, on a stretcher. ll1 13:39 Brittney Rodriguez, RN is Primary Nurse. ah 13:53 Cade Hull MD is Attending Physician. kdr 14:10 Initial lab(s) drawn, by ut, sent to lab. Inserted saline lock: 22 gauge in left kj1 antecubital area, using aseptic technique. Blood collected. 15:25 CT Abdomen - IV Contrast Only In Process Unspecified. EDMS 16:15 Patient has correct armband on for positive identification. Placed in gown. Bed in low ah position. Call light in reach. Side rails up X 1. 16:30 No provider procedures requiring assistance completed. IV discontinued, intact, ah bleeding controlled, No redness/swelling at site. Pressure dressing applied. Administered Medications: 16:21 Drug: Tylenol #3 (300 mg-30 mg) 1 tablet Route: PO; 16:30 Follow up: Response: Medication administered at discharge. 22:36 Not Given (order changed): Tylenol-Codeine #3 (300 mg - 30 mg) 2 tabs PO once; RASS on ADMIN: Combtv4, Very Agttd3, Agttd2, Rstlss1, AlertClm0, Drwsy-1, Lt Sdtn-2, Mod Sdtn-3, Dp Sdtn-4, UnArsble-5 Outcome: 16:19 Discharge ordered by . kdr 16:30 Discharged to home ambulatory. 16:30 Condition: good 16:30 Discharge instructions given to patient, Instructed on discharge instructions, follow up and referral plans. medication usage, Demonstrated understanding of instructions, follow-up care, medications, Prescriptions given X 2. 16:49 Patient left the ED. vc Signatures: Dispatcher [employer] EDMS Cade Hull MD MD kdr Martinez, Amelia as Jackson, Kandis kj1 Eunice Romero, RN RN Brittney Jack, RN RN Garfield Yost RN RN ll1
--- NOTE | 2019-06-07 16:20 | EDPHYS ---
Physician Documentation [facility] Name: Misa Tony Age: 43 yrs Sex: Female : 1975 Arrival Date: 06/07/2019 Time: 13:09 Bed 19 Private MD: ED Physician Cade Hull HPI: 06/06 16:26 This 43 yrs old Female presents to ER via Ambulatory with complaints of kdr Epigastric Pain. 16:26 The patient presents with abdominal pain in the epigastric area, in the right upper kdr quadrant. Onset: The symptoms/episode began/occurred gradually, at an unknown time, This has been a long chronic pain patient that the patient has been seen for previously Continues to be present and worsening. The is pain that is similar to what she has been battling for some months - it hasn't gone away since her last admission. The symptoms do not radiate. Associated signs and symptoms: none. The symptoms are described as achy, constant, sharp, stabbing. Modifying factors: The symptoms are alleviated by nothing, the symptoms are aggravated by coughing, breathing deeply, movement, touching the area. Severity of pain: At its worst the pain was moderate severe just prior to arrival, in the emergency department the pain is unchanged. The patient has experienced similar episodes in the past, chronically. The patient has been recently seen by a physician: Was transferred last time for possible GI involvement. Historical: - Allergies: 13:30 Morphine; ll1 - PMHx: 13:30 Hypertension; gastritis; Pancreatitis; GERD; Endometrosis; blood clot in Axilla; ll1 - PSHx: 13:30 Hysterectomy; Cholecystectomy; ll1 - Immunization history:: Adult Immunizations up to date. - Social history:: Patient/guardian denies using alcohol, street drugs, tobacco products, Smoking status: unknown. ROS: 16:26 Constitutional: Negative for fever, chills, and weight loss, Eyes: Negative for injury, kdr pain, redness, and discharge, ENT: Negative for injury, pain, and discharge, Neck: Negative for injury, pain, and swelling, Cardiovascular: Negative for chest pain, palpitations, and edema, Respiratory: Negative for shortness of breath, cough, wheezing, and pleuritic chest pain, Back: Negative for injury and pain, : Negative for injury, bleeding, discharge, and swelling, MS/Extremity: Negative for injury and deformity, Skin: Negative for injury, rash, and discoloration, Neuro: Negative for headache, weakness, numbness, tingling, and seizure activity. Psych: Negative for depression, anxiety, suicide ideation, homicidal ideation, and hallucinations, Allergy/Immunology: Negative for hives, rash, and allergies, Endocrine: Negative for neck swelling, polydipsia, polyuria, polyphagia, and marked weight changes, Hematologic/Lymphatic: Negative for swollen nodes, abnormal bleeding, and unusual bruising. 16:26 Abdomen/GI: Positive for abdominal pain, nausea and vomiting, Negative for vomiting, diarrhea, constipation, abdominal cramps, abdominal distension, anorexia, dysphagia, hematemesis, black/tarry stool, rectal pain, rectal bleeding, bowel incontinence. Exam: 16:26 Constitutional: This is a well developed, well nourished patient who is awake, alert, kdr and in no acute distress. Head/Face: Normocephalic, atraumatic. Eyes: Pupils equal round and reactive to light, extra-ocular motions intact. Lids and lashes normal. Conjunctiva and sclera are non-icteric and not injected. Cornea within normal limits. Periorbital areas with no swelling, redness, or edema. Neck: Trachea midline, no thyromegaly or masses palpated, and no cervical lymphadenopathy. Supple, full range of motion without nuchal rigidity, or vertebral point tenderness. No Meningismus. Chest/axilla: Normal chest wall appearance and motion. Nontender with no deformity. No lesions are appreciated. Cardiovascular: Regular rate and rhythm with a normal S1 and S2. No gallops, murmurs, or rubs. Normal PMI, no JVD. No pulse deficits. Respiratory: Lungs have equal breath sounds bilaterally, clear to auscultation and percussion. No rales, rhonchi or wheezes noted. No increased work of breathing, no retractions or nasal flaring. Back: No spinal tenderness. No costovertebral tenderness. Full range of motion. Skin: Warm, dry with normal turgor. Normal color with no rashes, no lesions, and no evidence of cellulitis. MS/ Extremity: Pulses equal, no cyanosis. Neurovascular intact. Full, normal range of motion. Neuro: Awake and alert, GCS 15, oriented to person, place, time, and situation. Cranial nerves II-XII grossly intact. Motor strength 5/5 in all extremities. Sensory grossly intact. Cerebellar exam normal. Normal gait. Psych: Awake, alert, with orientation to person, place and time. Behavior, mood, and affect are within normal limits. 16:26 Abdomen/GI: Inspection: abdomen appears normal, obese Bowel sounds: Palpation: soft, moderate abdominal tenderness, in the epigastric area and right upper quadrant, mass, is not appreciated, rebound tenderness, is not appreciated. Vital Signs: 13:27 BP 129 / 79; Pulse 95; Resp 18; Temp 98.0; Pulse Ox 99% ; Pain 10/10; ll1 MDM: 16:11 Data reviewed: vital signs, nurses notes. Counseling: I had a detailed discussion with [facility] the patient and/or guardian regarding: the historical points, exam findings, and any diagnostic results supporting the discharge/admit diagnosis, lab results, radiology results, the need for outpatient follow up. ED course: No MATERIAL REQUISITIONER data found. Dr. Rahman reports that the CT abdomen is not significantly different than with prior studies including the 12 mm bile duct. 16:19 Patient medically screened. [facility] 16:33 ED course: The patient improved with the interventions given but still c/o pain an at [facility] the time fo discharge. she was not incapacitated at the time of discharge but seems mildly uncomfortable.. 06/06 13:55 Order name: Basic Metabolic Panel; Complete Time: 14:49 [facility] 06/06 13:55 Order name: CBC with Diff; Complete Time: 14:49 [facility] 06/06 13:55 Order name: Creatinine for Radiology; Complete Time: 14:49 [facility] 06/06 13:55 Order name: Hepatic Function; Complete Time: 14:49 [facility] 06/06 13:55 Order name: Lipase; Complete Time: 14:49 [facility] 06/06 14:49 Order name: CT Abdomen - IV Contrast Only; Complete Time: 15:46 [facility] 06/06 13:55 Order name: IV Saline Lock; Complete Time: 14:17 [facility] 06/06 13:55 Order name: Labs collected and sent; Complete Time: 14:17 [facility] Administered Medications: 16:21 Drug: Tylenol #3 (300 mg-30 mg) 1 tablet Route: PO; 16:30 Follow up: Response: Medication administered at discharge. 22:36 Not Given (order changed): Tylenol-Codeine #3 (300 mg - 30 mg) 2 tabs PO once; RASS on ADMIN: Combtv4, Very Agttd3, Agttd2, Rstlss1, AlertClm0, Drwsy-1, Lt Sdtn-2, Mod Sdtn-3, Dp Sdtn-4, UnArsble-5 Disposition: 06/07/19 16:19 Discharged to Home. Impression: Abdominal and pelvic pain. - Condition is Stable. - Discharge Instructions: Abdominal Pain, Adult, [id number]. - Prescriptions for Bentyl 20 mg Oral Tablet - take 1 tablet by ORAL route every 6 hours As needed; 20 tablet. Tylenol- Codeine #3 300-30 mg Oral Tablet - take 2 tablets by ORAL route every 4-6 hours As needed; 12 tablet. - Medication Reconciliation Form, Thank You Letter, Prescription Opioid Use, Work release form form. - Follow up: Private Physician; When: 2 - 3 days; Reason: If symptoms return, Further diagnostic work-up, Recheck today's complaints, Continuance of care, Re-evaluation by your physician. - Problem is an acute exacerbation. - Symptoms have improved. Signatures: Dispatcher [employer] EDMS Cade Hull MD MD kdr Eunice Romero RN RN vc Harris, Amy, RN RN Garfield Yost RN RN ll1 Corrections: (The following items were deleted from the chart) 16:49 16:19 06/07/2019 16:19 Discharged to Home. Impression: Abdominal and pelvic pain. vc Condition is Stable. Forms are Medication Reconciliation Form, Thank You Letter, Antibiotic Education, Prescription Opioid Use. Follow up: Private Physician; When: 2 - 3 days; Reason: If symptoms return, Further diagnostic work-up, Recheck today's complaints, Continuance of care, Re-evaluation by your physician. Problem is an acute exacerbation. Symptoms have improved. kdr
[2019-06-07] MEDS ORDERED: CODEINE 30MG/APAP 300MG TAB ONE (16:39)
[2019-06-07 16:55] VITALS: BP 129/79; TEMP 98; O2SAT 99
== END 2019-06-07 16:49 | disposition home or self-care (01) ==
LOC: ER 13:07
DX: R10.2 Pelvic and perineal pain (principal); I10 Essential (primary) hypertension; Z88.5 Allergy status to narcotic agent
CPT/HCPCS: 85025; 80048; 36415; 80076; 83690; 74160; Q9967; J1170; J2405

== ENCOUNTER 2019-07-31 15:27 | Emergency (ER) | payer BC ==
--- OUTSIDE RECORDS SUMMARY | 2019-07-31 15:54 | XMS REPORT | Continuity of Care Document ---
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 Phosphate 30 MG X 2 day, # 15 Oral Tablet tab, 0 [Tylenol with Refill(s) Codeine #3] potassium Notes: (Same Inactive chloride as: K-Dur 20) 2015 [place] "Do Not Crush" With food and full glass of water Morphine Notes: (Same Inactive as:MORPhine 2015land Sulfate) Metoclopramide Notes: (Same Inactive as: Reglan) 2015land Famotidine Notes: (Same Inactive as: Pepcid) 2015 [place] Can be dilute in 5-10cc NS IVP: Slow IV push over at least 2 minutes. Morphine Notes: (Same Inactive as:MORPhine 2015land Sulfate) Saline Flush 0.9% Notes: (Same Inactive as: BD 2015 [place] Posiflush) Sodium Chloride 1,000 mL, Inactive 0.154 MEQ/ML 2,000 ml/hr, 2015 [place] Injectable Infuse Over: Solution 30 minutes, Route: IV, 1,000, Drug form: INJ, ONCE, Priority: STAT, Dosing Weight 77.273 kg, Start date: 09/21/15 5:12:00 CDT, Duration: 1 doses or times, Stop date: 09/21/15 5:12:00 CDT dicyclomine 10 mg 10 mg = 1 cap, Active oral capsule PO, TID, # 9 2015 [place] cap, 0 Refill(s) promethazine 25 25 mg = 1 tab, No Longer mg oral tablet PO, Q6H, PRN Active 2015 [place] Nausea & Vomiting, # 12 tab, 0 Refill(s) tramadol 1 - 2 tabs, No Longer hydrochloride 50 PO, Q4-6H, PRN Active 2015 [place] MG Oral Tablet as needed for [Ultram] pain, # 12 tab, 0 Refill(s) Valium Notes: (Same Inactive as: Valium) 2015 WASTE: F/P - Black; E - White/Blue Morphine Notes: (Same Inactive as:MORPhine 2015 Sulfate) Phenergan Notes: Do not Inactive give IV push. 2015 (Same as: Phenergan) Morphine 4 mg, Route: Inactive IVP, ONCE, 2015 Dosing Weight 84.091, kg, Priority: STAT, Start date: 08/13/15 4:22:00 CDT, Stop date: 08/13/15 4:22:00 CDT Ondansetron 4 mg, Route: Inactive IVP, ONCE, 2015 Dosing Weight 84.091, kg, Priority: STAT, Start date: 08/13/15 4:22:00 CDT, Stop date: 08/13/15 4:22:00 CDT Sodium Chloride 1,000 mL, Inactive 0.154 MEQ/ML 2,000 ml/hr, 2015 [facility] Injectable Infuse Over: Solution 30 minutes, Route: IV, ONCE, Priority: STAT, Dosing Weight 84.091 kg, Start date: 08/13/15 4:22:00 CDT, Duration: 1 doses or times, Stop date: 08/13/15 4:22:00 CDT Saline Flush 0.9% Notes: (Same Inactive as: BD 2015 Posiflush) Ondansetron Notes: (Same Inactive as: Zofran) 2015 [place] MEDICATION WASTE Product Size: 4 mg Product Wasted: ___ mg Morphine Notes: (Same Inactive as:MORPhine 2015 [place] Sulfate) Aluminum 10 mL, PO, No Longer Hydroxide 80 QID, # 150 mL, Active 2016 [place] MG/ML / Magnesium 0 Refill(s) Hydroxide 80 MG/ML / Simethicone 8 MG/ML Oral Suspension [Maalox Max] pantoprazole 40 40 mg = 1 tab, Active 08/10/ H MG Enteric Coated PO, Daily, # 2016 [place] Tablet [Protonix] 30 tab, 0 Refill(s) Acetaminophen 300 1 tab, PO, Active MG / Codeine Q6H, PRN Pain, 2016 [place] Phosphate 30 MG X 4 day, # 16 Oral Tablet tab, 0 [Tylenol with Refill(s) Codeine #3] Promethazine 25 mg = 1 tab, Active Hydrochloride 25 PO, Q6H, PRN 2016 [place] MG Oral Tablet Nausea, X 4 [Phenergan] day, # 16 tab, 0 Refill(s) Reglan Notes: (Same Inactive as: Reglan) 2015 [place] pantoprazole Notes: For IV Inactive push 2015 [place] reconstitute with 10 ml 0.9% sodium chloride and push over 2 minutes. (Same as: Protonix) Sodium Chloride 1,000 mL, Inactive 0.154 MEQ/ML 1,000 ml/hr, [address] [place] Injectable Infuse Over: 1 Solution hr, Route: IV, 1,000, Drug form: INJ, ONCE, Priority: STAT, Dosing Weight 84.091 kg, Start date: 08/10/15 19:34:00 CDT, Duration: 1 doses or times, Stop date: 08/10/15 19:34:00 CDT Lorazepam Notes: (Same Inactive as: Ativan) 2015 [place] Reglan Notes: (Same Inactive as: Reglan) 2015 [place] Lorazepam Notes: (Same Inactive as: Ativan) 2015 [place] Sodium Chloride 1,000 mL, Inactive 0.154 MEQ/ML 1,000 ml/hr, [facility]: 1 Solution hr, Route: IV, 1,000, Drug form: INJ, ONCE, Priority: STAT, Dosing Weight 84.091 kg, Start date: 08/10/15 18:50:00 CDT, Duration: 1 doses or times, Stop date: 08/10/15 18:50:00 CDT pantoprazole Notes: For IV Inactive push 2015 [place] reconstitute with 10 ml 0.9% sodium chloride and push over 2 minutes. (Same as: Protonix) Morphine Notes: (Same Inactive as:MORPhine 2015 [place] Sulfate) Ondansetron Notes: (Same Inactive as: Zofran) 2015 [place] MEDICATION WASTE Product Size: 4 mg Product Wasted: ___ mg Saline Flush 0.9% Notes: (Same Inactive as: BD 2015 [place] Posiflush) Ondansetron 4 MG 4 mg = 1 tab, Active H Disintegrating PO, BID, PRN 2015 [place] Tablet [Zofran] Nausea and Vomiting, Dissolve tab under tongue, X 5 day, # 10 tab, 0 Refill(s) Acetaminophen 300 1 - 2 tab, PO, No Longer 07/29 MG / Codeine Q4H, PRN Pain, Active 2015 [place] Phosphate 30 MG X 2 day, # 20 Oral Tablet tab, 0 [Tylenol with Refill(s) Codeine #3] Wellbutrin SR Notes: Do not Inactive crush or chew. 2015 [place] (Same As: Wellbutrin SR) Seroquel Notes: (Same Inactive as: SEROquel) 2015 [place] GI cocktail Notes: G.I. Inactive Cocktail = 2015 [place] antacid with simethicone 22.5 mL - lidocaine viscous 7.5 mL pantoprazole Notes: Tablet Inactive should not be 2015 [place] chewed or crushed. (Same as: Protonix) Docusate Notes: (Same Inactive as: Colace) 2015 [place] (Do Not Crush) quetiapine 50 MG 50 mg = 1 tab, Active Oral Tablet PO, Daily, # 2016 [place] [Seroquel] 60 tab, 0 Refill(s) Oxycodone Notes: (Same No Longer Hydrochloride 5 as: Active 2015 [place] MG Oral Tablet Roxicodone) Morphine Notes: (Same No Longer as:MORPhine Active 2015 [place] Sulfate) Ondansetron Notes: (Same No Longer as: Zofran) Active 2015 [place] MEDICATION WASTE Product Size: 4 mg Product Wasted: ___ mg Saline Flush 0.9% Notes: (Same No Longer as: BD Active 2015 [place] Posiflush) Sodium Chloride 1,000 mL, No Longer 0.154 MEQ/ML Rate: 125 Active 2015 [place] Injectable ml/hr, Infuse Solution over: 8 hr, Route: IV, Dosing Weight 83.591 kg, Total Volume: 1,000, Start date: 07/29/15 23:30:00 CDT, Duration: 30 day, Stop date: 08/28/15 23:29:00 CDT Tylenol Notes: Infuse No Longer over 15 Active 2015 [place] minutes Do not exceed 4gm/day of acetaminophen MEDICATION WASTE Product Size: 1000 mg Product Wasted: ___ mg Bentyl Notes: (Same Inactive as: Bentyl) 2015 [place] Reglan Notes: (Same Inactive as: Reglan) 2015 [place] Phenergan Notes: Do not Inactive give IV push. 2015 [place] (Same as: Phenergan) Famotidine 40 MG 40 mg = 1 tab, Active Oral Tablet PO, Daily, # 2016 [place] [Pepcid] 30 tab, 3 Refill(s) GI cocktail Notes: G.I. Inactive Cocktail = 2015 [place] antacid with simethicone 22.5 mL - lidocaine viscous 7.5 mL Ondansetron Notes: (Same Inactive as: Zofran) 2015 [place] MEDICATION WASTE Product Size: 4 mg Product Wasted: ___ mg Morphine Notes: (Same Inactive as:MORPhine 2015 [place] Sulfate) Saline Flush 0.9% Notes: (Same Inactive as: BD 2015 [place] Posiflush) Sodium Chloride 1,000 mL, Inactive 0.154 MEQ/ML 2,000 ml/hr, [address] [place] Injectable Infuse Over: Solution 30 minutes, Route: IV, 1,000, Drug form: INJ, ONCE, Priority: STAT, Dosing Weight 84.091 kg, Start date: 07/29/15 17:13:00 CDT, Duration: 1 doses or times, Stop date: 07/29/15 17:13:00 CDT tramadol 50 mg = 1 tab, Active hydrochloride 50 PO, BID, X 15 2015 [place] MG Oral Tablet day, # 30 tab, 0 Refill(s) Morphine Notes: (Same Inactive as:MORPhine 2015 [place] Sulfate) Morphine Notes: (Same Inactive as:MORPhine 2015 [place] Sulfate) Ondansetron Notes: (Same Inactive as: Zofran) 2015 [place] MEDICATION WASTE Product Size: 4 mg Product Wasted: ___ mg Sodium Chloride 1,000 mL, Inactive 0.154 MEQ/ML 2,000 ml/hr, 2016 [place] Injectable Infuse Over: Solution 30 minutes, Route: IV, 1,000, Drug form: INJ, ONCE, Priority: STAT, Dosing Weight 84.091 kg, Start date: 07/28/15 10:16:00 CDT, Duration: 1 doses or times, Stop date: 07/28/15 10:16:00 CDT Saline Flush 0.9% Notes: (Same Inactive as: BD 2015 [place] Posiflush) Bentyl 20 mg oral 20 mg = 1 tab, Active Tu tablet PO, QID, # [address] [facility] tab, 0 Refill(s) omeprazole 40 mg 40 mg = 1 cap, Active Tu oral delayed PO, Daily, # [address] [place] release capsule 30 cap, 0 Refill(s) Zofran 4 mg oral 4 mg = 1 tab, Active Tu H tablet PO, Q8H, as 2013 [facility] needed for nausea/vomitin g, # 15 tab, 0 Refill(s) Bentyl 20 mg, Route: Inactive Tu IM, ONCE, 2013 Dosing Weight 81.818, kg, Start date: 02/21/13 15:21:00, Stop date: 02/21/13 15:21:00 Sodium Chloride 1,000 mL, Inactive Mae 0.9% (Bolus) IV Rate: 1,000 2013 [place] 1000 mL ml/hr, Infuse over: 1 hr, Route: IV, Dosing Weight 81.818 kg, Total Volume: 1,000, Priority: STAT, Start date: 02/21/13 15:21:00, Duration: 1 doses or times, Stop date: 02/21/13 16:20:00 Saline Flush 0.9% 5 mL, Route: Inactive Tu IVP, Drug 2013 Form: INJ, Dosing Weight 81.818, kg, PRN, PRN Line Flush, Start date: 02/21/13 15:21:00, Duration: 24 hr, Stop date: 02/22/13 15:20:00Same as: BD Posiflush Sterile ondansetron 4 mg, Route: Inactive Tu IVP, ONCE, 2013 [facility] Dosing Weight 81.818, kg, Priority: STAT, Start date: 02/21/13 15:21:00, Stop date: 02/21/13 15:21:00 Zofran 4 mg oral 4 mg = 1 tab, Active [facility] 01/20/ M H tablet PO, TID, # [address] [facility] tab, 0 Refill(s) Bentyl 20 mg oral 20 mg = 1 tab, Active [facility] tablet PO, QID, # [address] [facility] tab, 0 Refill(s) NS (Bolus) IV 1,000 mL, Inactive [facility] 1,000 mL Rate: 1,[address] [facility] ml/hr, Infuse over: 1 hr, Route: IV, Dosing Weight 81.818 kg, Total Volume: 1,000, Priority: STAT, Start date: 01/20/13 14:26:00, Duration: 1 doses or times, Stop date: 01/20/13 15:25:00, Bolus DoseBolus Dose morphine Sulfate 4 mg, Route: Inactive [facility] M H IVP, Drug 2012 [facility] form: INJ, ONCE, Dosing Weight 81.818, kg, Priority: STAT, Start date: 01/20/13 13:31:00, Stop date: 01/20/13 13:31:00 Zofran 4 mg, Route: Inactive [facility] IVP, Drug 2012 [facility] form: INJ, ONCE, Dosing Weight 81.818, kg, Priority: STAT, Start date: 01/20/13 13:31:00, Stop date: 01/20/13 13:31:00 Phenergan 12.5 mg, Inactive [facility] Route: IVPB, 2012 [facility] ONCE, Dosing Weight 81.818, kg, Priority: STAT, Start date: 01/20/13 13:31:00, Stop date: 01/20/13 13:31:00 NS 1,000 mL 1,000 mL, No Longer [facility] Rate: [address] [facility] ml/hr, Infuse over: 6.7 hr, Route: IV, Dosing Weight 81.818 kg, Total Volume: 1,000, Start date: 01/20/13 13:30:00, Duration: 30 day, Stop date: 02/19/13 13:29:00 NS (Bolus) IV 1,000 mL, Inactive [place] 1000 mL Rate: 1,[address] [facility] ml/hr, Infuse over: 1 hr, Route: IV, Dosing Weight 81.818 kg, Total Volume: 1,000, Priority: STAT, Start date: 01/20/13 13:30:00, Duration: 1 doses or times, Stop date: 01/20/13 14:29:00, Bolus DoseBolus Dose Carafate 1 g/10 1 gm, 10 ml, Active [place] 01/07/ MH mL oral PO, QID-Before 2012 [facility] suspension Meals, 1200 mL, Substitution Allowed pantoprazole 40 40 mg, 1 tab, Active [place] 01/07/ MH mg oral enteric PO, Q12H, 60 2012 [place] coated tablet tab, Substitution Allowed, ECTAB Zofran 4 mg oral 4 mg, 1 tab, Active [place] 01/07/ MH tablet PO, Q6H, PRN, 2012 15 tab, as needed for nausea/vomitin g, Substitution Allowed Protonix 40 mg, 1 tab, No Longer [place] MH Route: PO, Active 2012 Drug form: ECTAB, Q12H, Start date: 01/06/13 21:00:00, Duration: 30 day, Stop date: 02/05/13 9:00:00Tablet should not be chewed or crushed. (Same as: Protonix) Lactated Ringers 1,000 mL, No Longer [place] Injection IV Rate: [address] [facility] 1,000 mL ml/hr, Infuse over: 40 hr, Route: IV, Dosing Weight 84.091 kg, Total Volume: 1,000, Start date: 01/05/13 19:48:00, Duration: 30 day, Stop date: 02/04/13 19:47:00 Reglan 10 mg, 2 mL, No Longer [place] MH Route: IVP, Active 2012 [facility] Drug form: INJ, Q6H, Dosing Weight 84.091, kg, Start date: 01/05/13 12:00:00, Duration: 30 day, Stop date: 02/04/13 6:00:00(Same as: Reglan) Abilify 10 mg, 2 tab, No Longer [place] Route: PO, 2012 [facility] Drug form: TAB, Daily, Dosing Weight 84.091, kg, Start date: 01/05/13 9:00:00, Duration: 30 day, Stop date: 02/03/13 9:00:00Non-For mulary Drug. (Same as: Abilify) Protonix 40 mg, Route: No Longer [place] IVP, Drug Active 2012 [facility] form: INJ, Q12H, Dosing Weight 84.091, kg, Patient is NPO, Start date: 01/04/13 21:00:00, Duration: 30 day, Stop date: 02/03/13 9:00:00For IV push reconstitute with 10 ml 0.9% sodium chloride and push over 2 minutes. (Same as: Protonix) enoxaparin 40 mg, 0.4 mL, No Longer [place] Route: SUB-Q, 2012 [facility] Drug form: INJ, [id number], Dosing Weight 84.091, kg, Start date: 01/04/13 18:00:00, Duration: 30 day, Stop date: 02/02/13 18:00:00(Same as: Lovenox) Tylenol 650 mg, 2 tab, No Longer [place] Route: PO, 2012 [facility] Drug form: TAB, Q6H, Dosing Weight 84.091, kg, PRN Pain Score 1-3, Start date: 01/04/13 17:13:00, Duration: 30 day, Stop date: 02/03/13 17:12:00Do not exceed 4 gm/day. (Same as: Tylenol) Phenergan + 12.5 mg, 0.5 No Longer [place] Sodium Chloride mL, Route: Active 2012 [facility] 0.9% IV 50 mL IVPB, Q6H, Dosing Weight 84.091, kg, PRN Nausea & Vomiting, Start date: 01/04/13 17:06:00, Duration: 30 day, Stop date: 02/03/13 17:05:00Do not give IV push. (Same as: Phenergan) ondansetron 4 mg, 2 mL, No Longer [facility] Route: IVP, Active 2012 [facility] Drug form: INJ, Q6H, Dosing Weight 84.091, kg, PRN Nausea & Vomiting, Start date: 01/04/13 16:50:00, Duration: 30 day, Stop date: 02/03/13 16:49:00(Same as: Zofran) D5W 1/2NS + KCL 1,000 mL, No Longer Alan 20mEq/L 1000ml Rate: 125 Active [address] [facility] [address] ([facility]) 1,000 mL ml/hr, Infuse over: 8 hr, Route: IV, Dosing Weight 84.091 kg, Total Volume: 1,000, Start date: 01/04/13 5:53:00, Duration: 30 day, Stop date: 02/03/13 5:52:00PREMIX IV - Do Not Alter Saline Flush 0.9% 5 ml, Route: No Longer [facility] 01/04 IVP, Drug Active 2012 [facility] Form: INJ, Dosing Weight 84.091, kg, PRN, PRN Line Flush, Start date: 01/04/13 5:53:00, Duration: 30 day, Stop date: 02/03/13 5:52:00(Same as: BD Posiflush) morphine Sulfate 4 mg, 2 mL, No Longer [facility] Route: IVP, Active 2012 [facility] Drug form: INJ, Q3H, Dosing Weight 84.091, kg, PRN Pain Score 4-6, Start date: 01/04/13 5:53:00, Duration: 30 day, Stop date: 02/03/13 5:52:00(Same as:MORPhine Sulfate) ondansetron 4 mg, 2 mL, Inactive [facility] Route: IVP, 2012 [facility] Drug form: INJ, Q8H, Dosing Weight 84.091, kg, PRN Nausea & Vomiting, Start date: 01/04/13 5:53:00, Duration: 30 day, Stop date: 02/03/13 5:52:00(Same as: Zofran) morphine Sulfate 4 mg, 2 mL, Inactive [place] Route: IVP2012 [facility] Drug form: INJ, ONCE, Dosing Weight 84.091, kg, Start date: 01/04/13 4:04:00, Stop date: 01/04/13 4:04:00(Same as:MORPhine Sulfate) GI cocktail 30 mL, Route: Inactive [place] PO, Drug Form: 2012 [facility] SUSP, Dosing Weight 84.091, kg, ONCE, STAT, Start date: 01/04/13 1:43:00, Stop date: 01/04/13 1:43:00G.I. Cocktail = antacid with simethicone 22.5 mL - lidocaine viscous 7.5 mL ketorolac 30 mg, 1 mL, Inactive [place] Route: IVP2012 [facility] Drug form: INJ, ONCE, Dosing Weight 84.091, kg, Priority: STAT, Start date: 01/04/13 1:11:00, Stop date: 01/04/13 1:11:00(Same as:Toradol) IV bolus must be given >15 seconds. Give IM administration slowly and deeply into the muscle. Not for use > 4 days Zofran 4 mg, 2 mL, Inactive [place] Route: IVP2012 [facility] Drug form: INJ, ONCE, Dosing Weight 84.091, kg, Priority: STAT, Start date: 01/03/13 20:44:00, Stop date: 01/03/13 20:44:00(Same as: Zofran) Sodium Chloride 1,000 mL, Inactive [place] 0.9% (Bolus) IV Rate: 1,000 [place] 1,000 mL ml/hr, Infuse over: 1 hr, Route: IV, Dosing Weight 84.091 kg, Total Volume: 1,000, Bolus Dose, Priority: STAT, Start date: 01/03/13 20:44:00, Duration: 1 doses or times, Stop date: 01/03/13 21:43:00 morphine Sulfate 4 mg, 2 mL, Inactive [place] Route: IVP2012 [facility] Drug form: INJ, ONCE, Dosing Weight 84.091, kg, Priority: STAT, Start date: 01/03/13 20:44:00, Stop date: 01/03/13 20:44:00(Same as:MORPhine Sulfate) Jacob 5/325 oral 1 tab, PO, Active Maeve MH tablet Q4-6H, PRN, 2012 tab, as needed for pain, Substitution Allowed, Maintenance Zofran 4 mg oral 4 mg, 1 tab, Active Maeve MH tablet PO, BID, 2012 tab, Substitution Allowed Jacob 5/325 oral 1 tab, PO, Active [place] 12/16/ MH tablet Q4-6H, PRN, 2012 [facility] tab, as needed for pain, Substitution Allowed, Maintenance Zofran 4 mg, Route: Inactive [place] IVP, Drug 2012 [facility] form: INJ, ONCE, Dosing Weight 84.091, kg, Priority: STAT, Start date: 12/16/12 0:16:00, Stop date: 12/16/12 0:16:00 Flexeril 10 mg, Route: Inactive Maeve PO, ONCE, 2012 [facility] Dosing Weight 84.091, kg, Priority: STAT, Start date: 12/15/12 22:39:00, Stop date: 12/15/12 22:39:00 NS 1,000 mL 1,000 mL, No Longer Maeve Rate: [address] [facility] ml/hr, Infuse over: 6.7 hr, Route: IV, Dosing Weight 84.091 kg, Total Volume: 1,000, Start date: 12/15/12 22:38:00, Duration: 30 day, Stop date: 01/14/13 22:37:00 ketorolac 30 mg, Route: Inactive Maeve IVP, Drug 2012 [facility] form: INJ, ONCE, Dosing Weight 84.091, kg, Priority: STAT, Start date: 12/15/12 22:38:00, Stop date: 12/15/12 22:38:00 morphine Sulfate 4 mg, Route: Inactive [place] 12/16/ H IVP, Drug 2012 [facility] form: INJ, ONCE, Dosing Weight 84.091, kg, Priority: STAT, Start date: 12/15/12 21:15:00, Stop date: 12/15/12 21:15:00 Zofran 4 mg, Route: Inactive [place] IVP, Drug 2012 [facility] form: INJ, ONCE, Dosing Weight 84.091, kg, Priority: STAT, Start date: 12/15/12 21:15:00, Stop date: 12/15/12 21:15:00 Toradol 30 mg/mL 30 mg, Route: [facility]P [facility], [facility], Active 2012 [facility] solution Dosing Weight 86.364, kg, Start date: 08/18/12 19:16:00, Stop date: 08/18/12 19:16:00 Ultram 50 mg oral 50 mg, 1 tab, PO Active Agnivia tablet PO, Q4H, PRN, 2012 20 tab, pain, Substitution Allowed Saline Flush 0.9% 5 ml, Route: IVP No Longer Aguhar IVP, Drug Active 2012 [facility] Form: INJ, Dosing Weight 86.364, kg, PRN, PRN Line Flush, Start date: 08/18/12 17:57:00, Duration: 30 day, Stop date: 09/17/12 17:56:00 Zofran 4 mg oral 4 mg, 1 tab, PO Active Jean 07/05/ MH tablet PO, Q8H, PRN, 2012 [facility] 8 tab, as needed for nausea/vomitin g, Substitution Allowed, TAB ondansetron 4 mg, Route: PO No Longer Jean 07/05/ MH PO, Drug form: Active 2012 [facility] TABDIS, ONCE, Dosing Weight 81.818, kg, Priority: STAT, Start date: 07/05/12 14:30:00, Stop date: 07/05/12 14:30:00 Phenergan 25 mg, Route: IM No Longer Jean 07/05/ IM, ONCE, Active 2012 [facility] Dosing Weight 81.818, kg, Priority: STAT, Start date: 07/05/12 14:30:00, Stop date: 07/05/12 14:30:00 Esgic 325 mg-50 2 tab, PO, PO Active Jean 07/05/ MH mg-40 mg oral Q6H, PRN, 2012 [facility] tablet tab, as needed for headache, Substitution Allowed, Maintenance valproate sodium 750 mg, 7.5 IV No Longer Jean 05/20/ M H 100 mg/mL mL, Route: IV, Active 2012 [facility] injectable Drug form: solution + Sodium INJ, ONCE, Chloride 0.9% IV Dosing Weight 100 mL 81.818, kg, give SIVP over 2 minutes, Priority: STAT, Start date: 07/05/12 12:35:00, Stop date: 07/05/12 12:35:00 metoclopramide 10 mg, Route: IVP No Longer Jean 05/20/ M H IVP, ONCE, Active 2012 [facility] Dosing Weight 81.818, kg, Priority: STAT, Start date: 07/05/12 11:38:00, Stop date: 07/05/12 11:38:00 ketorolac 30 mg, Route: IVP No Longer Jean 07/05/ MH IVP, Drug Active 2012 [facility] form: INJ, ONCE, Dosing Weight 81.818, kg, Priority: STAT, Start date: 07/05/12 11:38:00, Stop date: 07/05/12 11:38:00 Sodium Chloride 1,000 mL, IV No Longer Jean 0.9% (Bolus) IV Rate: 1,000 Active 2012 [place] [facility] 1000 mL ml/hr, Infuse over: 1 hr, Route: IV, Dosing Weight 81.818 kg, Total Volume: 1,000, Priority: STAT, Start date: 07/05/12 11:38:00, Duration: 1 doses or times, Stop date: 07/05/12 12:37:00, Bolus DoseBolus Dose Jacob 5/325 oral 1-2 tab, PO, PO Active Alan tablet Q4-6H, PRN, 15 2012 tab, Pain, Substitution Allowed, Maintenance aspirin 325 mg 325 mg, 1 tab, PO Active Alan tablet, enteric PO, Daily, 30 2012 [place] coated tab, Substitution Allowed, ECTAB Coumadin 5 mg, 1 tab, PO No Longer [place] Route: PO, Active 2012 [facility] Drug form: TAB, Daily, Dosing Weight 81.818, kg, Start date: 04/23/12 17:00:00, Stop date: 05/22/12 17:00:00 Lyrica 50 mg, 1 cap, PO No Longer Wilder Route: PO, Active 2012 [facility] Drug form: CAP, Q8H, Dosing Weight 81.818, kg, Priority: NOW, Start date: 04/23/12 13:45:00, Duration: 30 day, Stop date: 05/23/12 8:00:00 acetaminophen-hyd 2 tab, Route: PO No Longer [place] rocodone 325 PO, Drug Form: Active 2012 [place] mg-10 mg oral TAB, Q4H, PRN tablet Severe Pain, Start date: 04/22/12 11:27:00, Duration: 30 day, Stop date: 05/22/12 11:26:00 morphine Sulfate 2 mg, 1 mL, IVP No Longer Wilder 04/22/ M H Route: IVP, [facility] 2012 [facility] Drug form: INJ, Q3H, Dosing Weight 81.818, kg, PRN Pain Score 6-10, Start date: 04/22/12 11:18:00, Duration: 30 day, Stop date: 05/22/12 11:17:00 Jacob 10/325 oral Route: PO, PO No Longer Wilder H tablet Drug Form: 2012 [facility] TAB, Dosing Weight 81.818, kg, Q4H, PRN Pain, Start date: 04/22/12 11:17:00, Duration: 30 day, Stop date: 05/22/12 11:16:00 Wellbutrin SR 100 mg, 1 tab, PO No Longer Wilder 04/21/ M H Route: PO, Active 2012 [facility] Drug form: ERTAB, BID, Dosing Weight 81.818, kg, Start date: 04/21/12 17:00:00, Duration: 30 day, Stop date: 05/21/12 9:00:00 Coumadin 7.5 mg, 1 tab, PO No Longer Wilder Route: PO, Active 2012 [facility] Drug form: TAB, Daily, Dosing Weight 81.818, kg, Start date: 04/21/12 17:00:00, Stop date: 04/26/12 17:00:00 enoxaparin 80 mg, 0.8 mL, SUB-Q No Longer Alan Route: SUB-Q, [facility] [address] [facility] Drug form: INJ, [id number], Dosing Weight 81.818, kg, Start date: 04/21/12 13:00:00, Duration: 30 day, Stop date: 05/21/12 1:00:00 Zofran 4 mg, 2 mL, IV No Longer Wilder Route: IV, [facility] [address] [facility] Drug form: INJ, Q6H, Dosing Weight 81.818, kg, PRN Nausea, Start date: 04/21/12 10:09:00, Duration: 30 day, Stop date: 05/21/12 10:08:00 Jacob 5/325 oral 1 tab, Route: PO No Longer Wilder tablet PO, Drug Form: [facility] [facility] TAB, Dosing Weight 81.818, kg, Q4H, PRN Pain Score 1-5, Start date: 04/21/12 1:53:00, Duration: 30 day, Stop date: 05/21/12 1:52:00 morphine Sulfate 2 mg, 1 mL, IVP No Longer Wilder H Route: IVP, [facility] [address] [facility] Drug form: INJ, Q4H, Dosing Weight 81.818, kg, PRN Pain Score 6-10, Priority: STAT, Start date: 04/21/12 1:53:00, Duration: 30 day, Stop date: 05/21/12 1:52:00 acetaminophen 650 mg, 2 tab, PO No Longer White M H Route: PO, [facility] [address] [facility] Drug form: TAB, Q4H, Dosing Weight 81.818, kg, PRN See Nurse's Notes, Priority: STAT, Start date: 04/21/12 1:52:00, Duration: 30 day, Stop date: 05/21/12 1:51:00, as needed for fever/pain Unknown Home Substitution No Longer Medication Allowed [facility] [address] [facility] Ativan 0.5 mg, Route: IVP No Longer Popat IVP, ONCE, 2012 [facility] Dosing Weight 81.818, kg, Priority: STAT, Start date: 04/21/12 0:47:00, Stop date: 04/21/12 0:47:00 Abilify Substitution Active Allowed 2012 [facility] Lovenox 80 mg, Route: SUB-Q No Longer Pop[place] SUB-Q, Drug Active 2012 [facility] form: INJ, ONCE, Dosing Weight 81.818, kg, Priority: STAT, Start date: 04/20/12 23:49:00, Stop date: 04/20/12 23:49:00 Zofran 4 mg, Route: IVP No Longer Popat IVP, Drug Active 2012 [facility] form: INJ, ONCE, Dosing Weight 81.818, kg, Priority: STAT, Start date: 04/20/12 23:40:00, Stop date: 04/20/12 23:40:00 morphine Sulfate 4 mg, 2 mL, IVP No Longer Christianity 03/29/ H Route: IVP, Active 2012 [facility] Drug form: INJ, ONCE, Dosing Weight 84.091, kg, Priority: STAT, Start date: 03/29/12 9:45:00, Stop date: 03/29/12 9:45:00 ciprofloxacin 500 mg, 1 tab, PO No Longer Christianity H Route: PO, Active 2012 [facility] Drug form: TAB, ONCE, Dosing Weight 84.091, kg, Priority: STAT, Start date: 03/29/12 9:44:00, Stop date: 03/29/12 9:44:00 Cipro 500 mg oral 500 mg, 1 tab, PO Active [facility] tablet PO, Q12H, [address] [facility] tab, Substitution Allowed Jacob 5/325 oral 1-2 tab, PO, PO Active [facility] tablet Q4-6H, PRN, [address] [facility] tab, Pain, Substitution Allowed, Maintenance morphine Sulfate 6 mg, Route: IVP No Longer Christianity IVP, ONCE, Active 2012 [facility] Dosing Weight 84.091, kg, Priority: STAT, Start date: 03/29/12 7:30:00, Stop date: 03/29/12 7:30:00 ondansetron 4 mg, Route: IVP No Longer Christianity IVP, ONCE, Active 2012 [facility] Dosing Weight 84.091, kg, Priority: STAT, Start date: 03/29/12 7:30:00, Stop date: 03/29/12 7:30:00 Saline Flush 0.9% 5 mL, Route: IVP No Longer Christianity IVP, Drug Active 2012 [facility] Form: INJ, Dosing Weight 84.091, kg, PRN, PRN Line Flush, Start date: 03/29/12 7:30:00, Duration: 24 hr, Stop date: 03/30/12 7:29:00 Sodium Chloride 1,000 mL, IV No Longer Christianity 0.9% IV 1,000 mL Rate: 125 Active 2012 [facility] ml/hr, Infuse over: 8 hr, Route: IV, kg, Total Volume: 1,000, Start date: 03/29/12 7:30:00, Duration: 30 day, Stop date: 04/28/12 7:29:00 Sodium Chloride 500 mL, Route: IV No Longer Christianity 0.9% (Bolus) IV IV, Dosing Active 2012 [facility] Weight 84.091, kg, ONCE, Bolus at 1,000 ml/hr, STAT, Start date: 03/29/12 7:30:00, Stop date: 03/29/12 7:30:00 Jacob 5/325 oral 1-2 tab, PO, PO Active [facility] tablet Q4-6H, PRN, [address] [facility] tab, Pain, Substitution Allowed, Maintenance Macrobid 100 mg 100 mg, 1 cap, PO Active [facility] M H oral capsule PO, BID, 2012 [facility] cap, Substitution Allowed morphine Sulfate 4 mg, 2 mL, IVP No Longer Christianity 02/23/ M H Route: IVP, Active 2012 [facility] Drug form: INJ, ONCE, Dosing Weight 79.545, kg, Priority: STAT, Start date: 02/24/12 9:27:00, Stop date: 02/24/12 9:27:00 morphine Sulfate 4 mg, Route: IVP No Longer Christianity IVP, Drug Active 2012 [facility] form: INJ, ONCE, Dosing Weight 79.545, kg, Priority: STAT, Start date: 02/24/12 8:37:00, Stop date: 02/24/12 8:37:00 Saline Flush 0.9% 5 mL, Route: IVP No Longer Christianity IVP, Drug Active 2012 [facility] Form: INJ, Dosing Weight 79.545, kg, PRN, PRN Line Flush, Start date: 02/24/12 8:37:00, Duration: 24 hr, Stop date: 02/25/12 8:36:00 ondansetron 4 mg, Route: IVP No Longer Nriagu IVP, Drug Active 2011 [facility] form: INJ, ONCE, Priority: STAT, Start date: 08/08/11 21:29:00, Stop date: 08/08/11 21:29:00 Dilaudid 1 mg, Route: IV No Longer Nriagu IV, ONCE, Active 2011 [facility] Start date: 08/08/11 21:29:00, Stop date: 08/08/11 21:29:00 tramadol 50 mg 50 mg, PO, PO Active Nriagu oral tablet Q4-6H, PRN, 2011 [facility] tab, Pain, Substitution Allowed Dilaudid 1 mg, 1 mL, IV No Longer Nriagu Route: IV, Active 2011 [facility] Drug form: SOLN, ONCE, Start date: 08/08/11 19:49:00, Stop date: 08/08/11 19:49:00 Zofran 4 mg, Route: IVP No Longer Nriagu 08/08[facility] IVP, Drug Active 2011 [facility] form: INJ, ONCE, Priority: STAT, Start date: 08/08/11 19:00:00, Stop date: 08/08/11 19:00:00 morphine Sulfate 4 mg, Route: IVP No Longer Nriagu 08/08[facility] IVP, ONCE, Active 2011 [facility] Priority: STAT, Start date: 08/08/11 19:00:00, Stop date: 08/08/11 19:00:00 Allergies, Adverse Reactions, Alerts Substance Category Reaction Severity Reaction Status Date Comments S ource type Reported morphine Assertion Drug Active allergy [place] Immunizations Immunization Date Site Status Last Comments Source Given Updated pneumococcal Left completed Sheron jimenes 23-valent 6 [facility] vaccine [place],Surekha [facility] influenza virus Left completed [place] vaccine, 6 deltoid [facility],M H Surekha Hilario [facility] Results Order Name Results Value Reference Date Interpretation Comments Malia rce Range DRUG U Amph Scr Negative Negative 05/16 MH SCREEN *NA* /2019 [place] (05/16/19 7:31 PM) DRUG U Jyothi Scr Negative Negative 05/16 MH SCREEN *NA* [facility] (05/16/19 7:31 PM) DRUG U Benzodiaz Negative Negative 05/16 MH SCREEN Scr *NA* /2019 [place] (05/16/19 7:31 PM) DRUG U Cocaine Negative Negative 05/16 MH SCREEN Scr *NA* [facility] (05/16/19 7:31 PM) DRUG U Cannab Scr Negative Negative 05/16 MH SCREEN *NA* [facility] (05/16/19 7:31 PM) DRUG U Opiate Scr Positive Negative 05/16 MH SCREEN *ABN* [facility] (05/16/19 7:31 PM) DRUG U Negative Negative 05/16 MH SCREEN Phencyclidin *NA* [facility] e Scr (05/16/19 7:31 PM) DRUG UDS Note See Note 05/16 MH SCREEN (05/16/19 7:31 PM) /2019 [place] CHEM PANEL Glucose Lvl 90 70 - 99 05/14 [facility] CHEM PANEL BUN 6 7 - 22 05/14 [facility] CHEM PANEL Creatinine 0.50 0.50 - 05/[address] [facility] CHEM PANEL Sodium Lvl 140 135 - 145 05/14 [facility] CHEM PANEL Potassium 3.7 3.5 - 5.1 05/[address] [facility] CHEM PANEL Chloride Lvl 106 95 - 109 05/14 [facility] CHEM PANEL CO2 30 24 - 32 05/14 [facility] CHEM PANEL Calcium Lvl 8.5 8.5 - 10.5 05/14 [facility] CHEM PANEL Total 7.1 6.4 - 8.4 05/[address] [facility] CHEM PANEL Albumin Lvl 3.1 3.5 - 5.0 05/14 [facility] CHEM PANEL ALT 109 0 - 65 05/14 [facility] CHEM PANEL AST 38 0 - 37 05/14 [facility] CHEM PANEL Alk Phos 111 39 - 136 05/14 [place] CHEM PANEL Bili Total 0.6 0.2 - 1.3 05/14 [facility] CHEM PANEL AGAP 7.7 10.0 - 05/[address] [facility] CHEM PANEL B/C Ratio 12 6 - 25 05/14 [facility] CHEM PANEL Globulin 4.0 2.7 - 4.2 05/14 [facility] CHEM PANEL A/G Ratio 0.8 0.7 - 1.6 05/14 [facility] CHEM PANEL eGFR 118 05/14 Result Comment: The [facility] eGFR is calculated using the CKD-EPI formula. In most young, healthy individuals the eGFR will be >90 mL/min/1.73m2 . The eGFR declines with age. An eGFR of 60-89 may be normal in some populations, particularly the elderly, for whom the CKD-EPI formula has not been extensively validated. Use of the eGFR is not recommended in the following populations:< br/>
Amy viduals with unstable creatinine concentration s, including patients and those with serious co-morbid conditions.<b r/>
Patie nts with extremes in muscle mass or diet.

The data above are obtained from the National Kidney Disease Education Program (NKDEP) which additionally recommends that when the eGFR is used in patients with extremes of body mass index for purposes of drug dosing, the eGFR should be multiplied by the estimated BMI. CHEM PANEL Procalcitoni <0.05 0.00 - 05/14 [address] 0.10 [facility] HEMATOLOGY WBC 9.5 3.7 - 10.4 05/14 [facility] HEMATOLOGY RBC 3.67 4.20 - 05/14 MH 5.40 /2019 [facility] HEMATOLOGY Hgb 11.2 12.0 - 05/[address] [facility] HEMATOLOGY Hct 33.1 36.0 - 05/[address] [facility] HEMATOLOGY MCV 90.2 80.0 - 05/[address] [facility] HEMATOLOGY MCH 30.5 27.0 - 05/[address] [facility] HEMATOLOGY MCHC 33.8 32.0 - 05/[address] [facility] HEMATOLOGY RDW 13.1 11.5 - 05/[address] [facility] HEMATOLOGY Platelet 229 133 - 450 05/14 [facility] HEMATOLOGY MPV 9.4 7.4 - 10.4 05/14 MH /2019 [facility] HEMATOLOGY Segs 66.5 45.0 - 05/[address] [facility] HEMATOLOGY Lymphocytes 23.3 20.0 - 05/[address] [facility] HEMATOLOGY Monocytes 7.9 2.0 - 12.0 05/14 /2019 [facility] HEMATOLOGY Eosinophils 1.9 0.0 - 4.0 05/14 [facility] HEMATOLOGY Basophils 0.4 0.0 - 1.0 05/14 [facility] HEMATOLOGY Neutrophils 6.3 1.5 - 8.1 05/14 MH # /2019 [facility] HEMATOLOGY Lymphocytes 2.2 1.0 - 5.5 05/14 MH # /2019 [facility] HEMATOLOGY Monocytes # 0.8 0.0 - 0.8 05/14 [facility] HEMATOLOGY Eosinophils 0.2 0.0 - 0.5 05/14 MH # /2019 [facility] IMMUNOLOGY Hep Bs Ag Negative Negative 05/14 MH *NA* /2019 [facility] (05/14/19 10:50 PM) IMMUNOLOGY Hep C Ab Negative Negative 05/14 *NA* /2019 [facility] (05/14/19 10:50 PM) IMMUNOLOGY AMA Ab Scr Negative Negative 05/14 (05/14/19 10:50 PM) /2019 [facility] IMMUNOLOGY CHANTEL Negative Negative 05/14 (05/14/19 10:50 PM) [facility] IMMUNOLOGY A-1-AT 102 83 - 199 05/14 /2019 [facility] IMMUNOLOGY CERULOPLASMI 30 20 - 60 05/14 N /2019 [facility] IMMUNOLOGY SMA Screen Negative Negative 05/14 (05/14/19 10:50 PM) [facility] URINE AND UA Color Yellow Yellow 05/13 STOOL *NA* /2019 [facility] (05/14/19 12:34 PM) URINE AND UA Turbidity Clear Clear 05/13 STO[facility] (05/14/19 12:34 PM) [facility] URINE AND UA Spec Grav 1.014 <=1.030 05/13 STOOL /2019 [facility] URINE AND UA pH 8.0 5.0 - 8.0 05/13 STOOL /2019 [facility] URINE AND UA Protein Negative Negative 05/13 STOOL mg/dL mg/dL [facility] URINE AND UA Glucose Negative Negative 05/13 STO[facility] mg/dL mg/dL /2019 [facility] URINE AND UA Ketones 20 mg/dL Negative 05/13 [facility] mg/dL [place] URINE AND UA Bili Negative Negative 05/13 STOOL *NA* /2019 [place] (05/14/19 12:34 PM) URINE AND UA Blood Negative Negative 05/13 [facility] (05/14/19 12:34 PM) [facility] URINE AND UA 4.0 0.1 - 1.0 05/13 STOOL Urobilinogen [place] URINE AND UA Nitrite Negative Negative 05/13 [facility] (05/14/19 12:34 PM) [place] URINE AND UA Leuk Est Negative Negative 05/13 [facility] (05/14/19 12:34 PM) [place] URINE AND UA Sq Epi Occasional Few /LPF 05/13 STOOL /LPF /2019 [place] URINE AND UA WBC <1 0 - 5 05/13 [facility]OL [place] URINE AND UA RBC 2 0 - 2 05/[address] [facility] CHEM PANEL Glucose Lvl 95 70 - 99 05/13 [facility] CHEM PANEL BUN 5 7 - 22 05/13 [facility] CHEM PANEL Creatinine 0.57 0.50 - 05/[address] [facility] CHEM PANEL Sodium Lvl 141 135 - 145 05/13 [facility] CHEM PANEL Potassium 3.7 3.5 - 5.1 05/[address] [facility] CHEM PANEL Chloride Lvl 107 95 - 109 05/13 [facility] CHEM PANEL CO2 33 24 - 32 05/13 [facility] CHEM PANEL Calcium Lvl 8.7 8.5 - 10.5 05/13 [facility] CHEM PANEL AGAP 4.7 10.0 - 05/[address] [facility] CHEM PANEL eGFR 113 05/13 Result Comment: The [facility] eGFR is calculated using the CKD-EPI formula. In most young, healthy individuals the eGFR will be >90 mL/min/1.73m2 . The eGFR declines with age. An eGFR of 60-89 may be normal in some populations, particularly the elderly, for whom the CKD-EPI formula has not been extensively validated. Use of the eGFR is not recommended in the following populations:< br/>
Amy viduals with unstable creatinine concentration s, including patients and those with serious co-morbid conditions.<b r/>
Patie nts with extremes in muscle mass or diet.

The data above are obtained from the National Kidney Disease Education Program (NKDEP) which additionally recommends that when the eGFR is used in patients with extremes of body mass index for purposes of drug dosing, the eGFR should be multiplied by the estimated BMI. CHEM PANEL Magnesium 2.2 1.8 - 2.4 05/13 MH Lvl /2019 [facility] CHEM PANEL Phosphorus 2.5 2.5 - 4.5 05/13 MH /2019 [facility] CHEM PANEL Total 7.1 6.4 - 8.4 05/13 MH Protein /2019 [facility] CHEM PANEL Albumin Lvl 3.1 3.5 - 5.0 05/13 MH /2019 [facility] CHEM PANEL ALT 153 0 - 65 05/[address] [facility] CHEM PANEL AST 78 0 - 37 05/13 [facility] CHEM PANEL Alk Phos 120 39 - 136 05/13 [facility] CHEM PANEL Bili Total 0.8 0.2 - 1.3 05/13 MH /2019 [facility] CHEM PANEL Bili Direct 0.2 0.0 - 0.3 05/13 /2019 [facility] CHEM PANEL Globulin 4.0 2.7 - 4.2 05/13 /2019 [facility] CHEM PANEL A/G Ratio 0.8 0.7 - 1.6 05/13 MH /2019 [facility] CHEM PANEL Bili 0.6 0.0 - 1.0 05/13 MH Indirect /2019 [facility] HEMATOLOGY Segs 60.4 45.0 - 05/13 MH 75.0 /2019 [facility] HEMATOLOGY Lymphocytes 29.7 20.0 - 03 MH 40.0 /2019 [facility] HEMATOLOGY Monocytes 7.1 2.0 - 12.0 05/13 MH /2020 [facility] HEMATOLOGY Eosinophils 2.4 0.0 - 4.0 05/13 MH /2019 [facility] HEMATOLOGY Basophils 0.4 0.0 - 1.0 / MH /2019 [facility] HEMATOLOGY Neutrophils 5.8 1.5 - 8.1 / MH # /2020 [facility] HEMATOLOGY Lymphocytes 2.8 1.0 - 5.5 / MH # /2020 [facility] HEMATOLOGY Monocytes # 0.7 0.0 - 0.8 / MH /2019 [facility] HEMATOLOGY Eosinophils 0.2 0.0 - 0.5 / MH # /2020 [facility] HEMATOLOGY WBC 9.6 3.7 - 10.4 05/13 [facility] HEMATOLOGY RBC 3.85 4.20 - 05/13 MH 5.40 /2019 [facility] HEMATOLOGY Hgb 11.7 12.0 - 05/13 MH 16.0 /2019 [facility] HEMATOLOGY Hct 34.7 36.0 - 05/[address] [facility] HEMATOLOGY MCV 90.2 80.0 - 05/[address] [facility] HEMATOLOGY MCH 30.5 27.0 - 05/[address] [facility] HEMATOLOGY MCHC 33.8 32.0 - 05/[address] [facility] HEMATOLOGY RDW 12.9 11.5 - 05/13 MH 14.5 /2019 [facility] HEMATOLOGY Platelet 237 133 - 450 05/13 [facility] HEMATOLOGY MPV 9.2 7.4 - 10.4 05/13 [facility] URINE AND UA <=1.0 0.1 - 1.0 07/21 STOOL Urobilinogen mg/dL [place] URINE AND UA Bacteria Occasional None Seen 07/21 STOOL /HPF /HPF /2018 [place] URINE AND UA Mucus Few /LPF None Seen 07/21 STOOL /LPF /2018 [place] URINE AND UA RBC 2 0 - 2 07/21 STOOL [place] URINE AND UA Sq Epi Few /LPF Few /LPF 07/21 STOOL /2018 [place] URINE AND UA WBC 1 0 - 5 07/21 STOOL /2018 [place] URINE AND UA Nitrite Negative Negative 07/21 STO[facility] (07/21/18 2:45 PM) [place] URINE AND UA Leuk Est Negative Negative 07/21 [facility] (07/21/18 2:45 PM) [place] URINE AND UA Blood Negative Negative 07/21 [facility] (07/21/18 2:45 PM) [place] URINE AND UA Ketones Negative Negative 07/21 [facility] mg/dL mg/dL [place] URINE AND UA Bili Negative Negative 07/21 STOOL *NA* /2018 [place] (07/21/18 2:45 PM) URINE AND UA Glucose Negative Negative 07/21 [facility] mg/dL mg/dL [place] URINE AND UA pH 6.0 5.0 - 8.0 07/21 STOOL [place] URINE AND UA Protein Negative Negative 07/21 [facility] mg/dL mg/dL [place] URINE AND UA Turbidity Slight Clear 07/21 STOOL *ABN* /2018 [place] (07/21/18 2:45 PM) URINE AND UA Spec Grav 1.010 <=1.030 07/21 STOOL [place] URINE AND UA Color Yellow Yellow 07/21 STOOL *NA* [place] (07/21/18 2:45 PM) CHEM PANEL Lipase Lvl 118 73 - 393 07/21 [place] CHEM PANEL eGFR 103 07/21 [facility] Comment: The [place] eGFR is calculated using the CKD-EPI formula. In most young, healthy individuals the eGFR will be >90 mL/min/1.73m2 . The eGFR declines with age. An eGFR of 60-89 may be normal in some populations, particularly the elderly, for whom the CKD-EPI formula has not been extensively validated. Use of the eGFR is not recommended in the following populations:< br/>
Amy viduals with unstable creatinine concentration s, including patients and those with serious co-morbid conditions.<b r/>
Patie nts with extremes in muscle mass or diet.

The data above are obtained from the National Kidney Disease Education Program (NKDEP) which additionally recommends that when the eGFR is used in patients with extremes of body mass index for purposes of drug dosing, the eGFR should be multiplied by the estimated BMI. CHEM PANEL Bili Total 0.4 0.2 - 1.3 07/21 [place] CHEM PANEL Alk Phos 105 39 - 136 07/21 [place] CHEM PANEL Albumin Lvl 3.8 3.5 - 5.0 07/21 [place] CHEM PANEL AST 35 0 - 37 07/21 [place] CHEM PANEL ALT 58 0 - 65 07/21 [place] CHEM PANEL Calcium Lvl 9.5 8.5 - 10.5 07/21 [place] CHEM PANEL Total 8.5 6.4 - 8.4 07/21 [place] CHEM PANEL CO2 31 24 - 32 07/21 [place] CHEM PANEL Chloride Lvl 105 95 - 109 07/21 [place] CHEM PANEL Potassium 3.7 3.5 - 5.1 07/21 Lvl [place] CHEM PANEL Sodium Lvl 141 135 - 145 06/05 MH /2018 [place] CHEM PANEL Creatinine 0.72 0.50 - 06/05 MH Lvl 1.40 /2018 [place] CHEM PANEL BUN 5 7 - 22 06/05 MH /2018 [place] CHEM PANEL Glucose Lvl 100 70 - 99 06/05 /2018 [place] CHEM PANEL AGAP 8.7 10.0 - 06/05 MH 20.0 /2018 [place] CHEM PANEL B/C Ratio 7 6 - 25 06/05 /2018 [place] CHEM PANEL Globulin 4.7 2.7 - 4.2 06/05 MH /2018 [place] CHEM PANEL A/G Ratio 0.8 0.7 - 1.6 06/05 MH /2018 [place] HEMATOLOGY Hct 39.7 36.0 - 06/05 MH 48.0 [place] HEMATOLOGY MCH 30.6 27.0 - 06/05 MH 31.0 [place] HEMATOLOGY MCV 89.1 80.0 - 06/05 MH 98.0 [place] HEMATOLOGY Platelet 318 133 - 450 06/05 /2018 [place] HEMATOLOGY RDW 12.8 11.5 - 06/05 MH 14.5 /2018 [place] HEMATOLOGY MPV 9.2 7.4 - 10.4 06/05 MH /2018 [place] HEMATOLOGY MCHC 34.4 32.0 - 06/05 MH 36.0 /2018 [place] HEMATOLOGY RBC 4.46 4.20 - 06/05 MH 5.40 /2018 [place] HEMATOLOGY Hgb 13.7 12.0 - 06/05 MH 16.0 /2018 [place] HEMATOLOGY WBC 8.6 3.7 - 10.4 06/05 MH /2018 [place] HEMATOLOGY Monocytes # 0.8 0.0 - 0.8 06/05 MH /2018 [place] HEMATOLOGY Eosinophils 0.3 0.0 - 0.5 06/05 MH # /2018 [place] HEMATOLOGY Basophils 0.4 0.0 - 1.0 06/05 MH /2018 [place] HEMATOLOGY Segs 49.4 45.0 - 06/05 MH 75.0 2019 [place] HEMATOLOGY Neutrophils 4.2 1.5 - 8.1 06/05 MH # /2018 [place] HEMATOLOGY Lymphocytes 3.3 1.0 - 5.5 06/05 MH # /2018 [place] HEMATOLOGY Lymphocytes 38.0 20.0 - 06/05 MH 40.0 [place] HEMATOLOGY Monocytes 9.2 2.0 - 12.0 07/21 [place] HEMATOLOGY Eosinophils 3.0 0.0 - 4.0 07/21 [place] URINE AND UA Bacteria Occasional None Seen 06/08 STOOL /HPF /HPF [place] URINE AND UA Mucus Few /LPF None Seen 06/08 STOOL /LPF [place] URINE AND UA Sq Epi Few /LPF Few /LPF 06/08 STOOL [place] URINE AND UA WBC 2 0 - 5 06/08 STOOL [place] URINE AND UA RBC 3 0 - 2 06/08 STOOL [place] URINE AND UA Nitrite Negative Negative 06/08 STOOL (06/08/18 3:30 PM) /2018 [place] URINE AND UA Leuk Est Trace Negative 06/08 STOOL *ABN* [place] (06/08/18 3:30 PM) URINE AND UA Bili Negative Negative 06/08 STOOL *NA* [place] (06/08/18 3:30 PM) URINE AND UA Blood Small Negative 06/08 STOOL *ABN* [place] (06/08/18 3:30 PM) URINE AND UA 2.0 0.1 - 1.0 06/08 STOOL Urobilinogen /2018 [place] URINE AND UA Glucose Negative Negative 06/08 STOOL *NA* [place] (06/08/18 3:30 PM) URINE AND UA Ketones Negative Negative 06/08 STOOL *NA* [place] (06/08/18 3:30 PM) URINE AND UA pH 5.0 5.0 - 8.0 06/08 STOOL [place] URINE AND UA Spec Grav 1.014 <=1.030 06/08 STOOL [place] URINE AND UA Color Yellow Yellow 06/08 STOOL *NA* [place] (06/08/18 3:30 PM) URINE AND UA Protein Negative Negative 06/08 STOOL (06/08/18 3:30 PM) [place] URINE AND UA Turbidity Slight Clear 06/08 STOOL *ABN* [place] (06/08/18 3:30 PM) CHEM PANEL Lipase Lvl 68 35 - 393 06/08 [place] CHEM PANEL A/G Ratio 0.9 0.7 - 1.6 06/08 [place] CHEM PANEL Globulin 4.1 2.7 - 4.2 06/08 [place] CHEM PANEL B/C Ratio 12 6 - 25 06/08 [place] CHEM PANEL AGAP 10.0 10.0 - 06/08 MH 20.0 /2018 [place] CHEM PANEL eGFR 108 06/08 Result Comment: The [place] eGFR is calculated using the CKD-EPI formula. In most young, healthy individuals the eGFR will be >90 mL/min/1.73m2 . The eGFR declines with age. An eGFR of 60-89 may be normal in some populations, particularly the elderly, for whom the CKD-EPI formula has not been extensively validated. Use of the eGFR is not recommended in the following populations:< br/>
Amy viduals with unstable creatinine concentration s, including patients and those with serious co-morbid conditions.<b r/>
Patie nts with extremes in muscle mass or diet.

The data above are obtained from the National Kidney Disease Education Program (NKDEP) which additionally recommends that when the eGFR is used in patients with extremes of body mass index for purposes of drug dosing, the eGFR should be multiplied by the estimated BMI. CHEM PANEL AST 80 0 - 37 06/08 [place] CHEM PANEL Calcium Lvl 9.0 8.5 - 10.5 06/08 [place] CHEM PANEL CO2 31 24 - 32 06/08 [place] CHEM PANEL Bili Total 0.5 0.2 - 1.3 06/08 [place] CHEM PANEL Alk Phos 96 39 - 136 06/08 [place] CHEM PANEL Chloride Lvl 102 95 - 109 06/08 [place] CHEM PANEL ALT 88 0 - 65 06/08 [place] CHEM PANEL Albumin Lvl 3.6 3.5 - 5.0 06/08 [place] CHEM PANEL Total 7.7 6.4 - 8.4 06/08 [place] CHEM PANEL Creatinine 0.67 0.50 - 06/08 MH Lvl 1.40 [place] CHEM PANEL Sodium Lvl 139 135 - 145 06/08 [place] CHEM PANEL Glucose Lvl 94 70 - 99 06/08 [place] CHEM PANEL BUN 8 7 - 22 06/08 /2018 [place] CHEM PANEL Potassium 4.0 3.5 - 5.1 06/08 MH Lvl /2018 [place] HEMATOLOGY RBC 4.24 4.20 - 06/08 MH 5.40 [place] HEMATOLOGY WBC 9.3 3.7 - 10.4 06/08 [place] HEMATOLOGY Platelet 253 133 - 450 06/08 [place] HEMATOLOGY MCHC 34.6 32.0 - 06/08 MH 36.0 [place] HEMATOLOGY MCH 30.4 27.0 - 06/08 MH 31.0 [place] HEMATOLOGY RDW 13.0 11.5 - 06/08 MH 14. [place] HEMATOLOGY MCV 87.9 80.0 - 06/08 MH 98.0 [place] HEMATOLOGY MPV 9.4 7.4 - 10.4 06/08 [place] HEMATOLOGY Hgb 12.9 12.0 - 06/08 MH 16.0 [place] HEMATOLOGY Hct 37.2 36.0 - 06/08 MH 48.0 [place] HEMATOLOGY Monocytes # 0.9 0.0 - 0.8 06/08 [place] HEMATOLOGY Eosinophils 0.2 0.0 - 0.5 06/08 MH [place] HEMATOLOGY Basophils 0.5 0.0 - 1.0 06/08 [place] HEMATOLOGY Lymphocytes 2.8 1.0 - 5.5 06/08 MH # /2018 [place] HEMATOLOGY Neutrophils 5.4 1.5 - 8.1 06/08 MH [place] HEMATOLOGY Segs 57.4 45.0 - 06/08 MH 75.0 [place] HEMATOLOGY Eosinophils 2.7 0.0 - 4.0 06/08 [place] HEMATOLOGY Monocytes 9.3 2.0 - 12.0 06/08 [place] HEMATOLOGY Lymphocytes 30.1 20.0 - 06/08 MH 40.0 [place] CARDIAC Troponin-I <0.02 0.00 - 09/27 MH ENZYMES 0.40 [place] ELECTROLYT AGAP 12.0 10.0 - 09/26 MH ES 20.0 [place] ELECTROLYT Globulin 4.6 2.7 - 4.2 09/26 [place] ELECTROLYT B/C Ratio 13 6 - 25 09/26 MH [place] ELECTROLYT A/G Ratio 0.8 0.7 - 1.6 09/26 [place] ELECTROLYT eGFR 98 09/26 Comment: The [facility] eGFR is calculated using the CKD-EPI formula. In most young, healthy individuals the eGFR will be >90 mL/min/1.73m2 . The eGFR declines with age. An eGFR of 60-89 may be normal in some populations, particularly the elderly, for whom the CKD-EPI formula has not been extensively validated. Use of the eGFR is not recommended in the following populations:< br/>
Amy viduals with unstable creatinine concentration s, including patients and those with serious co-morbid conditions.<b r/>
Patie nts with extremes in muscle mass or diet.

The data above are obtained from the National Kidney Disease Education Program (NKDEP) which additionally recommends that when the eGFR is used in patients with extremes of body mass index for purposes of drug dosing, the eGFR should be multiplied by the estimated BMI. ELECTROLYT CO2 28 24 - 32 09/26 ES [place] ELECTROLYT Calcium Lvl 9.0 8.5 - 10.5 09/26 [facility] ELECTROLYT Bili Total 0.2 0.2 - 1.3 09/26 [facility] ELECTROLYT Total 8.3 6.4 - 8.4 09/26 ES Protein [place] ELECTROLYT ASPARTATE 12 0 - 37 09/26 ES TRANSAMINASE [place] ELECTROLYT Creatinine 0.75 0.50 - 09/26 ES Lvl 1.40 [place] ELECTROLYT BUN 10 7 - 22 09/26 ES [place] ELECTROLYT Glucose Lvl 92 70 - 99 09/26 ES [place] ELECTROLYT Potassium 4.0 3.5 - 5.1 09/26 ES Lvl [place] ELECTROLYT Chloride Lvl 102 95 - 109 09/26 ES [place] ELECTROLYT Sodium Lvl 138 135 - 145 09/26 [place] ELECTROLYT ALANINE 21 0 - 65 09/26 ES AMINOTRANSFE [place] RASE ELECTROLYT Alk Phos 140 39 - 136 09/26 [place] ELECTROLYT Albumin Lvl 3.7 3.5 - 5.0 08/ MH ES [place] HEMATOLOGY Basophils # 0.1 0.0 - 0.2 08 [place] HEMATOLOGY Eosinophils 0.2 0.0 - 0.5 08 MH # /2016 [place] HEMATOLOGY Monocytes # 0.8 0.0 - 0.8 09/26 [place] HEMATOLOGY Lymphocytes 3.6 1.0 - 5.5 08 MH # /2016 [place] HEMATOLOGY Basophils 0.6 0.0 - 1.0 08 [place] HEMATOLOGY Eosinophils 1.5 0.0 - 4.0 09/26 [place] HEMATOLOGY Monocytes 7.9 2.0 - 12.0 09/26 [place] HEMATOLOGY Lymphocytes 35.2 20.0 - 09/26 MH 40.0 [place] HEMATOLOGY Segs 54.8 45.0 - 09/26 MH 75.0 [place] HEMATOLOGY Segs-Bands # 5.5 1.5 - 8.1 09/26 [place] HEMATOLOGY RDW 14.3 11.5 - 09/26 MH 14. [place] HEMATOLOGY MCHC 34.4 32.0 - 09/26 MH 36.0 [place] HEMATOLOGY MPV 9.2 7.4 - 10.4 09/26 [facility] HEMATOLOGY Platelet 313 133 - 450 09/26 [place] HEMATOLOGY MCH 29.7 27.0 - 09/26 MH 31.0 [place] HEMATOLOGY MCV 86.4 80.0 - 09/26 MH 98.0 [place] HEMATOLOGY Hct 40.2 36.0 - 09/26 MH 48.0 [place] HEMATOLOGY Hgb 13.8 12.0 - 09/26 MH 16.0 [place] HEMATOLOGY WBC X 10x3 10.1 3.7 - 10.4 09/26 [facility] HEMATOLOGY RBC X 10x6 4.65 4.20 - 09/26 MH 5.40 [place] IMMUNOLOGY C-REACTIVE 9.0 <=2.9 mg/L 09/07 [place] IMMUNOLOGY CHANTEL Negative Negative 09/06 (09/06/16 1:44 PM) [facility] LIPIDS HDL 39 >=61 mg/dL 09/06 [place] LIPIDS LDL 105 <=99 mg/dL 09/06 (Calculated) [place] LIPIDS CHD Risk 4.79 3.90 - 09/06 MH 5.80 [place] LIPIDS VLDL 43 09/06 [place] LIPIDS Chol 187 <=199 09/06 MH mg/dL [place] LIPIDS Trig 213 <=149 09/06 mg/dL [place] SPECIAL Hgb A1C 5.2 <=5.6 % 09/06 MH CHEMISTRY [place] CHEM PANEL eGFR 114 09/05 Result Comment: The [place] eGFR is calculated using the CKD-EPI formula. In most young, healthy individuals the eGFR will be >90 mL/min/1.73m2 . The eGFR declines with age. An eGFR of 60-89 may be normal in some populations, particularly the elderly, for whom the CKD-EPI formula has not been extensively validated. Use of the eGFR is not recommended in the following populations:< br/>
Amy viduals with unstable creatinine concentration s, including patients and those with serious co-morbid conditions.<b r/>
Patie nts with extremes in muscle mass or diet.

The data above are obtained from the National Kidney Disease Education Program (NKDEP) which additionally recommends that when the eGFR is used in patients with extremes of body mass index for purposes of drug dosing, the eGFR should be multiplied by the estimated BMI. CHEM PANEL AGAP 11.6 10.0 - 09/05 MH 20.0 [place] CHEM PANEL Calcium Lvl 8.9 8.5 - 10.5 09/05 [place] CHEM PANEL BUN 13 7 - 22 09/05 [facility] CHEM PANEL Glucose Lvl 100 70 - 99 09/05 [facility] CHEM PANEL CO2 29 24 - 32 09/05 [facility] CHEM PANEL Chloride Lvl 106 95 - 109 09/05 [place] CHEM PANEL Potassium 3.6 3.5 - 5.1 09/05 MH Lvl [place] CHEM PANEL Sodium Lvl 143 135 - 145 09/05 [place] CHEM PANEL Creatinine 0.59 0.50 - 09/05 MH Lvl 1.40 [place] HEMATOLOGY INR 0.97 0.85 - 09/05 MH 1. [place] HEMATOLOGY aPTT 27.7 22.9 - 09/05 MH 35.8 /2016 [place] HEMATOLOGY PROTIME 13.1 12.0 - 09/05 MH 14.7 [place] HEMATOLOGY MPV 9.9 7.4 - 10.4 09/05 [place] HEMATOLOGY MCHC 33.9 32.0 - 09/05 MH 36.0 [place] HEMATOLOGY RDW 13.9 11.5 - 09/05 MH 14.5 [place] HEMATOLOGY Platelet 249 133 - 450 07 [facility] HEMATOLOGY Hgb 12.0 12.0 - 09/05 MH 16.0 [place] HEMATOLOGY Hct 35.5 36.0 - 09/05 MH 48.0 [place] HEMATOLOGY MCV 86.2 80.0 - 09/05 MH 98.0 [place] HEMATOLOGY MCH 29.2 27.0 - 09/05 MH 31.0 [place] HEMATOLOGY RBC X 10x6 4.12 4.20 - 09/05 MH 5.40 [place] HEMATOLOGY WBC X 10x3 11.0 3.7 - 10.4 09/05 [place] HEMATOLOGY Monocytes 5.9 2.0 - 12.0 09/05 [place] HEMATOLOGY Eosinophils 0.4 0.0 - 4.0 09/05 [place] HEMATOLOGY Basophils 0.4 0.0 - 1.0 09/05 [facility] HEMATOLOGY Segs-Bands # 8.0 1.5 - 8.1 09/05 [facility] HEMATOLOGY Monocytes # 0.7 0.0 - 0.8 09/05 [place] HEMATOLOGY Segs 73.2 45.0 - 09/05 MH 75.0 [place] HEMATOLOGY Lymphocytes 20.1 20.0 - 09/05 MH 40.0 [place] HEMATOLOGY Lymphocytes 2.2 1.0 - 5.5 09/05 MH [place] CHEM PANEL Lipase Lvl 137 73 - 393 09/04 [place] CHEM PANEL A/G Ratio 1.0 0.7 - 1.6 09/04 [place] CHEM PANEL Globulin 4.2 2.7 - 4.2 09/04 [place] CHEM PANEL B/C Ratio 14 6 - 25 09/04 [place] CHEM PANEL AGAP 8.6 10.0 - 07 MH 20.0 [place] CHEM PANEL eGFR 92 09/04 Result Comment: The [place] eGFR is calculated using the CKD-EPI formula. In most young, healthy individuals the eGFR will be >90 mL/min/1.73m2 . The eGFR declines with age. An eGFR of 60-89 may be normal in some populations, particularly the elderly, for whom the CKD-EPI formula has not been extensively validated. Use of the eGFR is not recommended in the following populations:< br/>
Amy viduals with unstable creatinine concentration s, including patients and those with serious co-morbid conditions.<b r/>
Patie nts with extremes in muscle mass or diet.

The data above are obtained from the National Kidney Disease Education Program (NKDEP) which additionally recommends that when the eGFR is used in patients with extremes of body mass index for purposes of drug dosing, the eGFR should be multiplied by the estimated BMI. CHEM PANEL Creatinine 0.80 0.50 - 07 MH Lvl 1.40 [place] CHEM PANEL Glucose Lvl 100 70 - 99 09/04 [place] CHEM PANEL BUN 11 7 - 22 09/04 [place] CHEM PANEL Chloride Lvl 104 95 - 109 09/04 [place] CHEM PANEL Potassium 3.6 3.5 - 5.1 09/04 MH Lvl [place] CHEM PANEL ALANINE 25 0 - 65 09/04 MH AMINOTRANSFE [place] RASE CHEM PANEL Alk Phos 128 39 - 136 09/04 [facility] CHEM PANEL Albumin Lvl 4.3 3.5 - 5.0 09/04 [place] CHEM PANEL Total 8.5 6.4 - 8.4 09/04 MH Protein [place] CHEM PANEL ASPARTATE 23 0 - 37 09/04 MH TRANSAMINASE /2016 [place] CHEM PANEL Bili Total 0.4 0.2 - 1.3 09/04 [facility] CHEM PANEL CO2 32 24 - 32 09/04 [facility] CHEM PANEL Calcium Lvl 9.0 8.5 - 10.5 09/04 [facility] CHEM PANEL Sodium Lvl 141 135 - 145 09/04 [facility] DRUG U Benzodia Negative Negative 09/04 [facility] SCREEN Scr *NA* /2016 [place] (09/04/16 4:49 PM) DRUG U Cocaine Negative Negative 09/04 MH SCREEN Scr /2016 [place] (09/04/16 4:49 PM) DRUG U Amph Scr Negative Negative 09/04 [facility] SCREEN *NA* /2016 [place] (09/04/16 4:49 PM) DRUG U Jyothi Scr Negative Negative 09/04 MH SCREEN /2016 [place] (09/04/16 4:49 PM) DRUG U Cannab Scr Negative Negative 09/04 [facility] SCREEN *NA* /2016 [place] (09/04/16 4:49 PM) DRUG U Opiate Scr Negative Negative 09/04 [facility] SCREEN *NA* [facility] (09/04/16 4:49 PM) DRUG UDS Note See Note 09/04 [facility] SCREEN /2016 [place] (09/04/16 4:49 PM) DRUG U Phencyc Negative Negative 09/04 MH SCREEN Scr * /2016 [place] (09/04/16 4:49 PM) HEMATOLOGY Platelet 287 133 - 450 09/04 [facility] HEMATOLOGY MCHC 33.6 32.0 - 09/04 MH 36.0 [place] HEMATOLOGY RDW 14.0 11.5 - 09/04 MH 14.5 [facility] HEMATOLOGY MPV 9.2 7.4 - 10.4 09/04 [facility] HEMATOLOGY RBC X 10x6 4.55 4.20 - 09/04 MH 5.40 [place] HEMATOLOGY Hgb 13.2 12.0 - 09/04 MH 16.0 [place] HEMATOLOGY WBC X 10x3 9.8 3.7 - 10.4 09/04 [facility] HEMATOLOGY MCV 86.2 80.0 - 09/04 MH 98.0 [place] HEMATOLOGY MCH 29.0 27.0 - 09/04 MH 31.0 [place] HEMATOLOGY Hct 39.2 36.0 - 09/04 MH 48.0 [place] HEMATOLOGY Eosinophils 1.7 0.0 - 4.0 09/04 [place] HEMATOLOGY Basophils 0.4 0.0 - 1.0 09/04 [place] HEMATOLOGY Segs-Bands # 6.2 1.5 - 8.1 09/04 [facility] HEMATOLOGY Lymphocytes 2.6 1.0 - 5.5 09/04 MH # /2016 [place] HEMATOLOGY Monocytes # 0.7 0.0 - 0.8 09/04 /2016 [place] HEMATOLOGY Eosinophils 0.2 0.0 - 0.5 09/04 MH # /2016 [place] HEMATOLOGY Lymphocytes 27.1 20.0 - 09/04 MH 40.0 /2016 [place] HEMATOLOGY Segs 63.5 45.0 - 09/04 MH 75.0 [place] HEMATOLOGY Monocytes 7.3 2.0 - 12.0 09/04 [place] URINE AND UA Turbidity Slight Cloudy Clear 09/04 STOOL (09/04/16 4:49 PM) /2016 [place] URINE AND UA RBC 3-5 /HPF 0 - 2 09/04 STOOL /2016 [place] URINE AND UA Spec Grav >=1.030 <=1.030 09/04 [facility] *ABN* /2016 [place] (09/04/16 4:49 PM) URINE AND UA pH 5.5 5.0 - 8.0 09/04 STOOL /2016 [place] URINE AND UA Color Yellow Yellow 09/04 STO[facility] *NA* /2016 [place] (09/04/16 4:49 PM) URINE AND UA Bili Small Negative 09/04 STO[facility] *ABN* /2016 [place] (09/04/16 4:49 PM) URINE AND UA Blood Trace Negative 09/04 STO[facility] *ABN* /2016 [place] (09/04/16 4:49 PM) URINE AND UA 0.2 0.1 - 1.0 09/04 [facility] Urobilinogen /2016 [place] URINE AND UA Nitrite Negative Negative 09/04 [facility] (09/04/16 4:49 PM) [place] URINE AND UA Leuk Est Negative Negative 09/04 [facility] (09/04/16 4:49 PM) [place] URINE AND UA WBC 0-2 /HPF None Seen 09/04 STO[facility] /HPF /2016 [place] URINE AND UA Sq Epi Many /LPF Few /LPF 09/04 STOOL /2016 [place] URINE AND UA [place] Yeast Few /HPF None Seen 09/04 STOOL /HPF [place] URINE AND UA Hyph Few /HPF 09/04 [facility] Yeast /2016 [place] URINE AND UA Bacteria Few /HPF None Seen 09/04 STOOL /HPF /2016 [place] URINE AND UA Mucus Many /LPF None Seen 09/04 STOOL /LPF /2016 [place] URINE AND UA Protein 30 mg/dL Negative 09/04 [facility] mg/dL /2016 [place] URINE AND UA Glucose Negative Negative 09/04 [facility] (09/04/16 4:49 PM) [place] URINE AND UA Ketones Negative Negative 09/04 STOOL *NA* /2016 [place] (09/04/16 4:49 PM) CHEM PANEL Lipase Lvl 87 73 - 393 08/17 [place] ELECTROLYT AGAP 9.5 10.0 - 07 MH ES 20.0 [place] ELECTROLYT Globulin 4.5 2.7 - 4.2 08/17 [place] ELECTROLYT A/G Ratio 0.7 0.7 - 1.6 08/17 ES [place] ELECTROLYT B/C Ratio 8 6 - 25 08/17 ES [place] ELECTROLYT ASPARTATE 17 0 - 37 08/17 ES TRANSAMINASE [place] ELECTROLYT eGFR 81 08/17 Comment: The [facility] eGFR is calculated using the CKD-EPI formula. In most young, healthy individuals the eGFR will be >90 mL/min/1.73m2 . The eGFR declines with age. An eGFR of 60-89 may be normal in some populations, particularly the elderly, for whom the CKD-EPI formula has not been extensively validated. Use of the eGFR is not recommended in the following populations:< br/>
Amy viduals with unstable creatinine concentration s, including patients and those with serious co-morbid conditions.<b r/>
Patie nts with extremes in muscle mass or diet.

The data above are obtained from the National Kidney Disease Education Program (NKDEP) which additionally recommends that when the eGFR is used in patients with extremes of body mass index for purposes of drug dosing, the eGFR should be multiplied by the estimated BMI. ELECTROLYT Glucose Lvl 107 70 - 99 08/17 ES [place] ELECTROLYT Albumin Lvl 3.3 3.5 - 5.0 08/17 ES [place] ELECTROLYT ALANINE 22 0 - 65 08/17 ES AMINOTRANSFE [place] RASE ELECTROLYT Total 7.8 6.4 - 8.4 07/ MH ES [place] ELECTROLYT Calcium Lvl 8.8 8.5 - 10.5 07/ [place] ELECTROLYT Bili Total 0.2 0.2 - 1.3 / MH [place] ELECTROLYT CO2 28 24 - 32 07/ MH [place] ELECTROLYT Creatinine 0.88 0.50 - 07/ MH ES Lvl 1.40 [place] ELECTROLYT Potassium 3.5 3.5 - 5.1 07/ MH ES Lvl /2016 [place] ELECTROLYT Chloride Lvl 107 95 - 109 07/ [place] ELECTROLYT BUN 7 7 - 22 07/ [place] ELECTROLYT Alk Phos 124 39 - 136 / [place] ELECTROLYT Sodium Lvl 141 135 - 145 08/17 [place] HEMATOLOGY Lymphocytes 49.9 20.0 - 08/17 MH 40.0 [place] HEMATOLOGY Monocytes 9.2 2.0 - 12.0 08/17 [place] HEMATOLOGY Eosinophils 3.4 0.0 - 4.0 08/17 [place] HEMATOLOGY Segs 36.9 45.0 - 08/17 MH 75.0 [place] HEMATOLOGY Monocytes # 0.7 0.0 - 0.8 08/17 [place] HEMATOLOGY Basophils 0.6 0.0 - 1.0 08/17 [place] HEMATOLOGY Segs-Bands # 2.8 1.5 - 8.1 08/17 [place] HEMATOLOGY Eosinophils 0.3 0.0 - 0.5 / MH /2016 [place] HEMATOLOGY Lymphocytes 3.8 1.0 - 5.5 / MH /2016 [place] HEMATOLOGY MCHC 33.8 32.0 - 07 MH 36.0 [place] HEMATOLOGY MPV 9.4 7.4 - 10.4 08/17 [place] HEMATOLOGY RDW 13.8 11.5 - 08/17 MH 14.5 [place] HEMATOLOGY Platelet 259 133 - 450 / [facility] HEMATOLOGY WBC X 10x3 7.7 3.7 - 10.4 08/17 [place] HEMATOLOGY Hgb 12.2 12.0 - 08/17 MH 16.0 /2016 [place] HEMATOLOGY RBC X 10x6 4.20 4.20 - 08/17 MH 5.40 /2016 [place] HEMATOLOGY MCV 85.8 80.0 - 08/17 MH 98.0 /2016 [place] HEMATOLOGY Hct 36.1 36.0 - 08/17 MH 48.0 [place] HEMATOLOGY MCH 29.0 27.0 - 08/17 MH 31.0 [place] URINE AND UA Bacteria Few /HPF None Seen 08/17 STOOL /HPF /2016 [place] URINE AND UA RBC 11-20 /HPF 0 - 2 08/17 STOOL /2016 [place] URINE AND UA Sq Epi Occasional Few /LPF 08/17 STOOL /LPF /2016 [place] URINE AND UA WBC 6-10 /HPF None Seen 08/17 STO[facility] /HPF /2016 [place] URINE AND UA Spec Grav <=1.005 <=1.030 08/17 STO[facility] *NA* /2016 [place] (08/16/16 10:17 PM) URINE AND UA Turbidity Clear Clear 08/17 [facility] (08/16/16 10:17 PM) /2016 [place] URINE AND UA Color Yellow Yellow 08/17 STO[facility] *NA* /2016 [place] (08/16/16 10:17 PM) URINE AND UA Nitrite Negative Negative 08/17 [facility] (08/16/16 10:17 PM) /2016 [place] URINE AND UA Leuk Est Small Negative 08/17 STO[facility] *ABN* /2016 [place] (08/16/16 10:17 PM) URINE AND UA pH 6.0 5.0 - 8.0 08/17 STOOL /2016 [place] URINE AND UA Protein Negative Negative 08/17 [facility] (08/16/16 10:17 PM) /2016 [place] URINE AND UA 0.2 0.1 - 1.0 08/17 [facility] Urobilinogen /2016 [place] URINE AND UA Blood Large Negative 08/17 STO[facility] *ABN* /2016 [place] (08/16/16 10:17 PM) URINE AND UA Bili Negative Negative 08/17 STOOL *NA* /2016 [place] (08/16/16 10:17 PM) URINE AND UA Ketones Negative Negative 08/17 STOOL *NA* /2016 [place] (08/16/16 10:17 PM) URINE AND UA Glucose Negative Negative 08/17 [facility] (08/16/16 10:17 PM) [facility] CHEM PANEL Lipase Lvl 330 73 - 393 06/25 [facility] CHEM PANEL eGFR 95 06/25 Result Comment: The [facility] eGFR is calculated using the CKD-EPI formula. In most young, healthy individuals the eGFR will be >90 mL/min/1.73m2 . The eGFR declines with age. An eGFR of 60-89 may be normal in some populations, particularly the elderly, for whom the CKD-EPI formula has not been extensively validated. Use of the eGFR is not recommended in the following populations:< br/>
Amy viduals with unstable creatinine concentration s, including patients and those with serious co-morbid conditions.<b r/>
Patie nts with extremes in muscle mass or diet.

The data above are obtained from the National Kidney Disease Education Program (NKDEP) which additionally recommends that when the eGFR is used in patients with extremes of body mass index for purposes of drug dosing, the eGFR should be multiplied by the estimated BMI. CHEM PANEL CO2 30 24 - 32 05/ MH [place] CHEM PANEL Chloride Lvl 101 95 - 109 / [place] CHEM PANEL Calcium Lvl 9.5 8.5 - 10.5 06/25 [place] CHEM PANEL Bili Total 0.6 0.2 - 1.3 / [place] CHEM PANEL Total 9.0 6.4 - 8.4 05/10 MH Protein /2016 [place] CHEM PANEL ASPARTATE 21 0 - 37 05/10 MH TRANSAMINASE [place] CHEM PANEL ALANINE 32 0 - 65 05/10 MH AMINOTRANSFE /2016 [place] RASE CHEM PANEL Albumin Lvl 4.1 3.5 - 5.0 05/10 MH [place] CHEM PANEL Alk Phos 129 39 - 136 05/10 MH [place] CHEM PANEL Glucose Lvl 104 70 - 99 05/10 MH [place] CHEM PANEL Potassium 3.6 3.5 - 5.1 05/10 MH Lvl /2016 [place] CHEM PANEL Sodium Lvl 139 135 - 145 05/10 MH [place] CHEM PANEL Creatinine 0.78 0.50 - 05/10 MH Lvl 1.40 /2016 [place] CHEM PANEL BUN 6 7 - 22 05/10 MH /2016 [place] CHEM PANEL Globulin 4.9 2.7 - 4.2 05/10 /2016 [place] CHEM PANEL B/C Ratio 8 6 - 25 05/10 [place] CHEM PANEL AGAP 11.6 10.0 - 05/10 MH 20.0 /2016 [place] CHEM PANEL A/G Ratio 0.8 0.7 - 1.6 05/10 [place] HEMATOLOGY Lymphocytes 16.0 20.0 - 05/10 MH 40.0 /2016 [place] HEMATOLOGY Segs 75.5 45.0 - 05/10 MH 75.0 /2016 [place] HEMATOLOGY Segs-Bands # 12.1 1.5 - 8.1 05/ [place] HEMATOLOGY Eosinophils 0.8 0.0 - 4.0 /10 [place] HEMATOLOGY Basophils 0.2 0.0 - 1.0 05/10 [place] HEMATOLOGY Monocytes 7.5 2.0 - 12.0 /10 [place] HEMATOLOGY Eosinophils 0.1 0.0 - 0.5 05/10 MH # /2016 [place] HEMATOLOGY Lymphocytes 2.6 1.0 - 5.5 05/10 MH # /2016 [place] HEMATOLOGY Monocytes # 1.2 0.0 - 0.8 / [place] HEMATOLOGY MCH 28.2 27.0 - 0510 MH 31.0 [place] HEMATOLOGY MCV 84.8 80.0 - 05 MH 98.0 [place] HEMATOLOGY Hct 38.0 36.0 - 0510 MH 48.0 [place] HEMATOLOGY Hgb 12.6 12.0 - 0510 MH 16.0 [place] HEMATOLOGY Platelet 268 133 - 450 05 [place] HEMATOLOGY RDW 13.6 11.5 - 0510 MH 14.5 [place] HEMATOLOGY MCHC 33.2 32.0 - 05/10 MH 36.0 [place] HEMATOLOGY MPV 9.5 7.4 - 10.4 05/10 [place] HEMATOLOGY RBC X 10x6 4.48 4.20 - 05/10 MH 5.40 /2016 [place] HEMATOLOGY WBC X 10x3 16.0 3.7 - 10.4 /10 [place] URINE AND UA Spec Grav 1.015 <=1.030 05/10 STOOL /2016 [place] URINE AND UA pH 6.0 5.0 - 8.0 06/25 STOOL /2016 [place] URINE AND UA Protein 30 mg/dL Negative 06/25 [facility] mg/dL /2016 [place] URINE AND UA Glucose Negative Negative 06/25 [facility] (06/25/16 6:24 PM) /2016 [place] URINE AND UA Ketones Negative Negative 06/25 STOOL *NA* /2016 [place] (06/25/16 6:24 PM) URINE AND UA Turbidity Clear Clear 06/25 [facility] (06/25/16 6:24 PM) /2016 [place] URINE AND UA Color Yellow Yellow 06/25 STOOL *NA* /2016 [place] (06/25/16 6:24 PM) URINE AND UA Bili Negative Negative 06/25 STOOL *NA* [place] (06/25/16 6:24 PM) URINE AND UA Leuk Est Negative Negative 06/25 [facility] (06/25/16 6:24 PM) /2016 [place] URINE AND UA 0.2 0.1 - 1.0 06/25 STO[facility] Urobilinogen /2016 [place] URINE AND UA Blood Moderate Negative 06/25 STO[facility] *ABN* /2016 [place] (06/25/16 6:24 PM) URINE AND UA Nitrite Negative Negative 06/25 STO[facility] (06/25/16 6:24 PM) [place] URINE AND UA WBC 0-2 /HPF None Seen 06/25 STOOL /HPF [place] URINE AND UA Mucus Few /LPF None Seen 06/25 STOOL /LPF /2016 [place] URINE AND UA RBC 3-5 /HPF 0 - 2 06/25 STOOL [place] URINE AND UA Bacteria Moderate None Seen 06/25 STOOL /HPF /HPF /2016 [place] URINE AND UA Sq Epi Few /LPF Few /LPF 06/25 STOOL [place] URINE AND UA Bili Negative Negative 06/04 STOOL *NA* [place] (06/03/16 7:23 PM) URINE AND UA Ketones Negative Negative 06/04 STOOL *NA* [place] (06/03/16 7:23 PM) URINE AND UA Sq Epi Occasional Few /LPF 06/04 STOOL /LPF [place] URINE AND UA Leuk Est Negative Negative 06/04 STOOL (06/03/16 7:23 PM) [place] URINE AND UA Nitrite Negative Negative 06/04 STOOL (06/03/16 7:23 PM) [place] URINE AND UA 0.2 0.1 - 1.0 06/04 STOOL Urobilinogen [place] URINE AND UA Blood Trace Negative 06/04 STOOL *ABN* /2016 [place] (06/03/16 7:23 PM) URINE AND UA Glucose Negative Negative 06/04 STOOL (06/03/16 7:23 PM) [place] URINE AND UA Protein Negative Negative 06/04 STOOL (06/03/16 7:23 PM) [place] URINE AND UA pH 5.5 5.0 - 8.0 06/04 STOOL [place] URINE AND UA Spec Grav 1.010 <=1.030 06/04 STOOL [place] URINE AND UA Turbidity Clear Clear 06/04 STO[facility] (06/03/16 7:23 PM) [place] URINE AND UA Color Yellow Yellow 06/04 STOOL *NA* /2016 [place] (06/03/16 7:23 PM) URINE AND UA Bacteria None Seen None Seen 06/04 STOOL (06/03/16 7:23 PM) [place] URINE AND UA RBC 0-2 /HPF 0 - 2 06/04 STOOL [place] URINE AND UA WBC 0-2 /HPF None Seen 06/04 STOOL /HPF [place] HEMATOLOGY D-Dimer 0.27 05/14 [place] CHEM PANEL Lipase Lvl 367 73 - 393 05/14 [place] CHEM PANEL eGFR 109 05/14 Result Comment: The [place] eGFR is calculated using the CKD-EPI formula. In most young, healthy individuals the eGFR will be >90 mL/min/1.73m2 . The eGFR declines with age. An eGFR of 60-89 may be normal in some populations, particularly the elderly, for whom the CKD-EPI formula has not been extensively validated. Use of the eGFR is not recommended in the following populations:< br/>
Amy viduals with unstable creatinine concentration s, including patients and those with serious co-morbid conditions.<b r/>
Patie nts with extremes in muscle mass or diet.

The data above are obtained from the National Kidney Disease Education Program (NKDEP) which additionally recommends that when the eGFR is used in patients with extremes of body mass index for purposes of drug dosing, the eGFR should be multiplied by the estimated BMI. CHEM PANEL Alk Phos 120 39 - 136 05/14 [place] CHEM PANEL ALANINE 29 0 - 65 05/14 MH AMINOTRANSFE [place] RASE CHEM PANEL Albumin Lvl 3.9 3.5 - 5.0 05/14 [place] CHEM PANEL Potassium 3.7 3.5 - 5.1 05/14 MH Lvl [place] CHEM PANEL Chloride Lvl 104 95 - 109 05/14 [place] CHEM PANEL Creatinine 0.68 0.50 - 05/14 MH Lvl 1.40 [place] CHEM PANEL Sodium Lvl 143 135 - 145 05/14 [place] CHEM PANEL Glucose Lvl 93 70 - 99 05/14 [place] CHEM PANEL BUN 10 7 - 22 05/14 [place] CHEM PANEL Total 8.0 6.4 - 8.4 05/14 Protein [place] CHEM PANEL Bili Total 0.2 0.2 - 1.3 05/14 [place] CHEM PANEL CO2 33 24 - 32 05/14 [place] CHEM PANEL Calcium Lvl 9.1 8.5 - 10.5 05/14 [place] CHEM PANEL ASPARTATE 25 0 - 37 05/14 [facility] CHEM PANEL A/G Ratio 1.0 0.7 - 1.6 05/14 [facility] CHEM PANEL Globulin 4.1 2.7 - 4.2 05/14 [place] CHEM PANEL AGAP 9.7 10.0 - 05/14 [facility] 20.0 /2016 [place] CHEM PANEL B/C Ratio 15 6 - 25 05/14 [facility] HEMATOLOGY Basophils # 0.1 0.0 - 0.2 05/14 [facility] HEMATOLOGY Monocytes # 0.8 0.0 - 0.8 05/14 [facility] HEMATOLOGY Segs-Bands # 4.8 1.5 - 8.1 05/14 [place] HEMATOLOGY Lymphocytes 3.3 1.0 - 5.5 05/14 [facility] # /2016 [place] HEMATOLOGY Eosinophils 0.3 0.0 - 0.5 05/14 [facility] # /2016 [place] HEMATOLOGY Eosinophils 2.9 0.0 - 4.0 05/14 [place] HEMATOLOGY Basophils 0.6 0.0 - 1.0 05/14 /2016 [facility] HEMATOLOGY Monocytes 9.1 2.0 - 12.0 05/14 [place] HEMATOLOGY Segs 51.6 45.0 - 05/14 [facility] 75.0 [place] HEMATOLOGY Lymphocytes 35.8 20.0 - 05/14 [facility] 40.0 [place] HEMATOLOGY MCV 84.9 80.0 - 05/14 [facility] 98.0 [place] HEMATOLOGY MPV 9.5 7.4 - 10.4 05/14 [place] HEMATOLOGY Platelet 298 133 - 450 05/14 /2016 [place] HEMATOLOGY RDW 14.6 11.5 - 05/14 [facility] 14.5 [place] HEMATOLOGY MCHC 34.2 32.0 - 05/14 [facility] 36.0 [place] HEMATOLOGY MCH 29.0 27.0 - 05/14 [facility] 31.0 [place] HEMATOLOGY Hct 35.8 36.0 - 05/14 [facility] 48.0 [place] HEMATOLOGY RBC X 10x6 4.22 4.20 - 05/14 [facility] 5.40 /2016 [place] HEMATOLOGY Hgb 12.2 12.0 - 05/14 [facility] 16.0 [place] HEMATOLOGY WBC X 10x3 9.3 3.7 - 10.4 05/14 [place] URINE AND UA WBC 0-2 /HPF None Seen 05/14 STO[facility] /HPF /2016 [place] URINE AND UA Sq Epi Moderate Few /LPF 05/14 STO[facility] /LPF /2016 [place] URINE AND UA Bacteria Occasional None Seen 05/14 [facility] /HPF /HPF /2016 [place] URINE AND UA RBC 0-2 /HPF 0 - 2 05/14 STO[facility] /2016 [place] URINE AND UA Leuk Est Negative Negative 05/14 [facility] (05/14/16 2:27 PM) /2016 [facility] URINE AND UA Blood Trace Negative 05/14 [facility] *ABN* /2016 [place] (05/14/16 2:27 PM) URINE AND UA Bili Negative Negative 05/14 STOOL *NA* /2016 [place] (05/14/16 2:27 PM) URINE AND UA Nitrite Negative Negative 05/14 STOOL (05/14/16 2:27 PM) /2016 [place] URINE AND UA 0.2 0.1 - 1.0 05/14 STOOL Urobilinogen /2016 [place] URINE AND UA Glucose Negative Negative 05/14 [facility] (05/14/16 2:27 PM) /2016 [place] URINE AND UA Protein Negative Negative 05/14 [facility] (05/14/16 2:27 PM) /2016 [place] URINE AND UA Ketones Negative Negative 05/14 STOOL *NA* /2016 [place] (05/14/16 2:27 PM) URINE AND UA pH 7.0 5.0 - 8.0 05/14 STOOL /2016 [place] URINE AND UA Spec Grav 1.010 <=1.030 05/14 STOOL /2016 [place] URINE AND UA Color Yellow Yellow 05/14 STOOL *NA* /2016 [place] (05/14/16 2:27 PM) URINE AND UA Turbidity Clear Clear 05/14 [facility] (05/14/16 2:27 PM) /2016 [place] URINE CHEM U Preg Negative Negative 05/14 (05/14/16 2:27 PM) /2016 [facility] HEMATOLOGY Platelet 277 133 - 450 12/22 [place] HEMATOLOGY MCH 30.3 27.0 - 11 MH 31.0 [place] HEMATOLOGY MCHC 34.3 32.0 - 11 MH 36.0 [place] HEMATOLOGY RDW 15.3 11.5 - 12/22 MH 14.5 /2015 [place] HEMATOLOGY MPV 8.5 7.4 - 10.4 11 [place] HEMATOLOGY Hct 31.4 36.0 - 11 MH 48.0 /2015 [place] HEMATOLOGY RBC X 10x6 3.55 4.20 - 11 MH 5.40 /2015 [place] HEMATOLOGY Hgb 10.8 12.0 - 11 MH 16.0 [place] HEMATOLOGY WBC X 10x3 10.3 3.7 - 10.4 12/22 [place] HEMATOLOGY MCV 88.3 80.0 - 11 MH 98.0 [place] ELECTROLYT AGAP 10.5 10.0 - 11 MH ES 20.0 /2015 [place] ELECTROLYT Chloride Lvl 105 95 - 109 12/20 ES [place] ELECTROLYT Calcium Lvl 8.1 8.5 - 10.5 12/20 ES /2015 [place] ELECTROLYT eGFR 130 12/20 Result ES Comment: The [place] eGFR is calculated using the CKD-EPI formula. In most young, healthy individuals the eGFR will be >90 mL/min/1.73m2 . The eGFR declines with age. An eGFR of 60-89 may be normal in some populations, particularly the elderly, for whom the CKD-EPI formula has not been extensively validated. Use of the eGFR is not recommended in the following populations:< br/>
Amy viduals with unstable creatinine concentration s, including patients and those with serious co-morbid conditions.<b r/>
Patie nts with extremes in muscle mass or diet.

The data above are obtained from the National Kidney Disease Education Program (NKDEP) which additionally recommends that when the eGFR is used in patients with extremes of body mass index for purposes of drug dosing, the eGFR should be multiplied by the estimated BMI. ELECTROLYT Potassium 3.5 3.5 - 5.1 12/20 ES Lvl [place] ELECTROLYT CO2 28 24 - 32 12/20 ES [place] ELECTROLYT Sodium Lvl 140 135 - 145 12/20 ES [place] ELECTROLYT Glucose Lvl 77 70 - 99 12/20 ES [place] ELECTROLYT BUN 7 7 - 22 12/20 ES [place] ELECTROLYT Creatinine 0.40 0.50 - 12/20 ES Lvl 1.40 /2015 [place] HEMATOLOGY Monocytes # 1.1 0.0 - 0.8 12/20 [place] HEMATOLOGY Eosinophils 0.2 0.0 - 0.5 12/20 # /2015 [place] HEMATOLOGY Lymphocytes 21.7 20.0 - 11 MH 40.0 /2015 [place] HEMATOLOGY Segs 68.2 45.0 - 12/20 MH 75.0 /2015 [place] HEMATOLOGY Eosinophils 1.3 0.0 - 4.0 12/20 [place] HEMATOLOGY Monocytes 8.4 2.0 - 12.0 12/20 [place] HEMATOLOGY Lymphocytes 2.8 1.0 - 5.5 12/20 MH # /2015 [place] HEMATOLOGY Segs-Bands # 8.7 1.5 - 8.1 11 [place] HEMATOLOGY Basophils 0.4 0.0 - 1.0 11 [place] HEMATOLOGY MPV 8.6 7.4 - 10.4 12/20 [place] HEMATOLOGY MCH 30.4 27.0 - 12/20 MH 31.0 [place] HEMATOLOGY MCHC 34.4 32.0 - 11 MH 36.0 /2015 [place] HEMATOLOGY RDW 15.3 11.5 - 12/20 MH 14.5 /2015 [place] HEMATOLOGY Platelet 255 133 - 450 11 [place] HEMATOLOGY Hct 29.9 36.0 - 12/20 MH 48.0 [place] HEMATOLOGY MCV 88.5 80.0 - 12/20 MH 98.0 [place] HEMATOLOGY WBC X 10x3 12.8 3.7 - 10.4 12/20 [place] HEMATOLOGY RBC X 10x6 3.38 4.20 - 12/20 MH 5.40 [place] HEMATOLOGY Hgb 10.3 12.0 - 12/20 MH 16.0 [place] HEMATOLOGY Monocytes # 1.4 0.0 - 0.8 12/18 [place] HEMATOLOGY Basophils # 0.1 0.0 - 0.2 12/18 [place] HEMATOLOGY Eosinophils 0.2 0.0 - 0.5 12/18 MH # /2015 [place] HEMATOLOGY Lymphocytes 4.5 1.0 - 5.5 12/18 MH # /2015 [place] HEMATOLOGY Eosinophils 1.4 0.0 - 4.0 12/18 [place] HEMATOLOGY Basophils 0.3 0.0 - 1.0 12/18 [place] HEMATOLOGY Segs-Bands # 11.0 1.5 - 8.1 12/18 [place] HEMATOLOGY Segs 64.1 45.0 - 12/18 MH 75.0 /2015 [place] HEMATOLOGY Monocytes 8.0 2.0 - 12.0 12/18 [place] HEMATOLOGY Lymphocytes 26.2 20.0 - 12/18 MH 40.0 [place] HEMATOLOGY Platelet 250 133 - 450 12/18 [place] HEMATOLOGY MPV 8.1 7.4 - 10.4 11 [place] HEMATOLOGY MCHC 33.6 32.0 - 12/18 MH 36.0 [place] HEMATOLOGY RDW 15.6 11.5 - 12/18 MH 14.5 [place] HEMATOLOGY MCV 87.7 80.0 - 12/18 MH 98.0 [place] HEMATOLOGY MCH 29.4 27.0 - 12/18 MH 31.0 [place] HEMATOLOGY WBC X 10x3 17.2 3.7 - 10.4 12/18 [place] HEMATOLOGY Hgb 10.1 12.0 - 12/18 MH 16.0 [place] HEMATOLOGY RBC X 10x6 3.45 4.20 - 11 MH 5.40 [place] HEMATOLOGY Hct 30.2 36.0 - 12/18 MH 48.0 [place] CHEM PANEL Lipase Lvl 140 73 - 393 12/17 [place] CHEM PANEL A/G Ratio 0.8 0.7 - 1.6 12/17 [place] CHEM PANEL B/C Ratio 19 6 - 25 12/17 [place] CHEM PANEL Globulin 4.2 2.7 - 4.2 12/17 [place] CHEM PANEL AGAP 9.7 10.0 - 12/17 MH 20.0 [place] CHEM PANEL eGFR 111 12/17 Result Comment: The [place] eGFR is calculated using the CKD-EPI formula. In most young, healthy individuals the eGFR will be >90 mL/min/1.73m2 . The eGFR declines with age. An eGFR of 60-89 may be normal in some populations, particularly the elderly, for whom the CKD-EPI formula has not been extensively validated. Use of the eGFR is not recommended in the following populations:< br/>
Amy viduals with unstable creatinine concentration s, including patients and those with serious co-morbid conditions.<b r/>
Patie nts with extremes in muscle mass or diet.

The data above are obtained from the National Kidney Disease Education Program (NKDEP) which additionally recommends that when the eGFR is used in patients with extremes of body mass index for purposes of drug dosing, the eGFR should be multiplied by the estimated BMI. CHEM PANEL Creatinine 0.64 0.50 - 12/17 MH Lvl 1.40 [place] CHEM PANEL Glucose Lvl 108 70 - 99 12/17 [place] CHEM PANEL Sodium Lvl 140 135 - 145 12/17 [place] CHEM PANEL BUN 12 7 - 22 12/17 [place] CHEM PANEL Alk Phos 132 39 - 136 12/17 [place] CHEM PANEL Albumin Lvl 3.4 3.5 - 5.0 12/17 [place] CHEM PANEL ALANINE 144 0 - 65 12/17 AMINOTRANS [place] RASE CHEM PANEL Chloride Lvl 105 95 - 109 12/17 [place] CHEM PANEL Potassium 3.7 3.5 - 5.1 12/17 Lvl /2015 [place] CHEM PANEL Bili Total 0.4 0.2 - 1.3 12/17 [place] CHEM PANEL Calcium Lvl 8.2 8.5 - 10.5 12/17 [place] CHEM PANEL CO2 29 24 - 32 12/17 [place] CHEM PANEL Total 7.6 6.4 - 8.4 12/17 [place] CHEM PANEL ASPARTATE 33 0 - 37 12/17 TRANSAMINASE [place] HEMATOLOGY Lymphocytes 8.1 20.0 - 12/17 40.0 [place] HEMATOLOGY Monocytes 3.3 2.0 - 12.0 12/17 [place] HEMATOLOGY Basophils # 0.1 0.0 - 0.2 12/17 [place] HEMATOLOGY Monocytes # 0.5 0.0 - 0.8 12/17 [place] HEMATOLOGY Lymphocytes 1.2 1.0 - 5.5 12/17 MH # /2015 [place] HEMATOLOGY Basophils 0.5 0.0 - 1.0 12/17 [place] HEMATOLOGY Eosinophils 0.2 0.0 - 4.0 12/17 [place] HEMATOLOGY Segs-Bands # 12.7 1.5 - 8.1 12/17 [place] HEMATOLOGY Segs 87.9 45.0 - 12/17 75.0 [place] URINE AND UA Bacteria Occasional None Seen 12/17 STOOL /HPF /HPF /2015 [place] URINE AND UA RBC 6-10 /HPF 0 - 2 12/17 STOOL [place] URINE AND UA Color Yellow Yellow 12/17 STOOL *NA* /2015 [place] (12/18/15 2:26 PM) URINE AND UA Turbidity Clear Clear 12/17 STOOL (12/18/15 2:26 PM) [place] URINE AND UA Glucose Negative Negative 12/17 STOOL (12/18/15 2:26 PM) [place] URINE AND UA Protein Negative Negative 12/17 STOOL (12/18/15 2:26 PM) [place] URINE AND UA pH 6.0 5.0 - 8.0 12/17 STOOL [place] URINE AND UA Spec Grav 1.015 <=1.030 12/17 STOOL [place] URINE AND UA Bili Negative Negative 12/17 STOOL *NA* /2015 [place] (12/18/15 2:26 PM) URINE AND UA Nitrite Negative Negative 12/17 STOOL (12/18/15 2:26 PM) [place] URINE AND UA Ketones Negative Negative 12/17 STOOL *NA* /2015 [place] (12/18/15 2:26 PM) URINE AND UA 2.0 0.1 - 1.0 12/17 STOOL Urobilinogen /2015 [place] URINE AND UA Blood Trace Negative 12/17 STOOL *ABN* /2015 [place] (12/18/15 2:26 PM) URINE AND UA Sq Epi Many /LPF Few /LPF 12/17 [place] URINE AND UA Leuk Est Negative Negative 12/17 STOOL (12/18/15 2:26 PM) [place] URINE AND UA WBC 0-2 /HPF None Seen 12/17 STOOL /HPF [place] CHEM PANEL eGFR 92 09/20 Result Comment: The [place] eGFR is calculated using the CKD-EPI formula. In most young, healthy individuals the eGFR will be >90 mL/min/1.73m2 . The eGFR declines with age. An eGFR of 60-89 may be normal in some populations, particularly the elderly, for whom the CKD-EPI formula has not been extensively validated. Use of the eGFR is not recommended in the following populations:< br/>
Amy viduals with unstable creatinine concentration s, including patients and those with serious co-morbid conditions.<b r/>
Patie nts with extremes in muscle mass or diet.

The data above are obtained from the National Kidney Disease Education Program (NKDEP) which additionally recommends that when the eGFR is used in patients with extremes of body mass index for purposes of drug dosing, the eGFR should be multiplied by the estimated BMI. CHEM PANEL Calcium Lvl 8.8 8.5 - 10.5 08/ [place] CHEM PANEL Total 8.4 6.4 - 8.4 08/05 MH Protein [place] CHEM PANEL Bili Total 0.5 0.2 - 1.3 08/ MH [place] CHEM PANEL ASPARTATE 15 0 - 37 08/05 MH TRANSAMINASE [place] CHEM PANEL Potassium 3.3 3.5 - 5.1 08/05 MH Lvl /2015 [place] CHEM PANEL CO2 29 24 - 32 08/ [place] CHEM PANEL Sodium Lvl 136 135 - 145 08 [place] CHEM PANEL Creatinine 0.81 0.50 - 08/05 MH Lvl 1.40 [place] CHEM PANEL Chloride Lvl 101 95 - 109 09/20 [place] CHEM PANEL ALANINE 26 0 - 65 08/05 AMINOTRANS [place] RASE CHEM PANEL Alk Phos 119 39 - 136 08/05 MH [place] CHEM PANEL Albumin Lvl 3.9 3.5 - 5.0 08/ [place] CHEM PANEL BUN 4 7 - 22 08/ [place] CHEM PANEL Glucose Lvl 103 70 - 99 / [place] CHEM PANEL Globulin 4.5 2.7 - 4.2 09/20 MH [place] CHEM PANEL B/C Ratio 5 6 - 25 08/ [place] CHEM PANEL A/G Ratio 0.9 0.7 - 1.6 09/20 [place] CHEM PANEL AGAP 9.3 10.0 - 08/05 MH 20.0 /2015 [place] CHEM PANEL Lipase Lvl 128 73 - 393 09/20 [place] ENDOCRINOL S Preg Negative Negative 09/20 OGY *NA* /2015 [place] (09/21/15 5:31 AM) HEMATOLOGY Basophils 0.5 0.0 - 1.0 08 [place] HEMATOLOGY Segs-Bands # 7.5 1.5 - 8.1 09/20 [place] HEMATOLOGY Eosinophils 0.2 0.0 - 0.5 08/05 MH # /2016 [place] HEMATOLOGY Lymphocytes 4.2 1.0 - 5.5 08/ MH # /2016 [place] HEMATOLOGY Basophils # 0.1 0.0 - 0.2 09/20 MH /2015 [place] HEMATOLOGY Monocytes # 1.2 0.0 - 0.8 09/20 MH /2015 [place] HEMATOLOGY Eosinophils 1.2 0.0 - 4.0 09/20 /2015 [place] HEMATOLOGY Segs 57.2 45.0 - 08 MH 75.0 /2015 [place] HEMATOLOGY Monocytes 9.1 2.0 - 12.0 09/20 /2015 [place] HEMATOLOGY Lymphocytes 32.0 20.0 - 08 MH 40.0 /2015 [place] HEMATOLOGY MPV 10.0 7.4 - 10.4 09/20 /2015 [place] HEMATOLOGY Platelet 271 133 - 450 09/20 /2015 [place] HEMATOLOGY RDW 13.1 11.5 - 09/20 MH 14.5 /2015 [place] HEMATOLOGY MCHC 32.9 32.0 - 08 MH 36.0 /2015 [place] HEMATOLOGY Hct 37.8 36.0 - 09/20 MH 48.0 /2015 [place] HEMATOLOGY Hgb 12.4 12.0 - 09/20 MH 16.0 /2015 [place] HEMATOLOGY RBC X 10x6 4.27 4.20 - 09/20 MH 5.40 /2015 [place] HEMATOLOGY WBC X 10x3 13.1 3.7 - 10.4 09/20 /2015 [place] HEMATOLOGY MCH 29.0 27.0 - 09/20 MH 31.0 [place] HEMATOLOGY MCV 88.4 80.0 - 09/20 98.0 /2015 [place] URINE AND UA Bacteria Occasional None Seen 09/20 STOOL /HPF /HPF /2015 [place] URINE AND UA RBC 0-2 /HPF 0 - 2 09/20 STOOL [place] URINE AND UA WBC 0-2 /HPF None Seen 09/20 STOOL /HPF /2015 [place] URINE AND UA pH 6.5 5.0 - 8.0 09/20 STOOL /2015 [place] URINE AND UA Protein Negative Negative 09/20 STO[facility] (09/21/15 5:31 AM) /2015 [facility] URINE AND UA Glucose Negative Negative 09/20 STOOL (09/21/15 5:31 AM) /2015 [place] URINE AND UA Spec Grav 1.015 <=1.030 09/20 STOOL /2015 [place] URINE AND UA 0.2 0.1 - 1.0 09/20 STOOL Urobilinogen /2015 [place] URINE AND UA Nitrite Negative Negative 09/20 STOOL (09/21/15 5:31 AM) [place] URINE AND UA Ketones Negative Negative 09/20 STOOL *NA* /2015 [place] (09/21/15 5:31 AM) URINE AND UA Leuk Est Negative Negative 09/20 STOOL (09/21/15 5:31 AM) [place] URINE AND UA Sq Epi Occasional Few /LPF 09/20 STOOL /LPF /2015 [place] URINE AND UA Bili Negative Negative 09/20 STOOL *NA* /2015 [place] (09/21/15 5:31 AM) URINE AND UA Blood Trace Negative 09/20 STOOL *ABN* /2015 [place] (09/21/15 5:31 AM) URINE AND UA Color Yellow Yellow 09/20 STOOL *NA* /2015 [place] (09/21/15 5:31 AM) URINE AND UA Turbidity Clear Clear 09/20 STOOL (09/21/15 5:31 AM) [place] CHEM PANEL Amylase Lvl 30 25 - 115 08/12 [place] CHEM PANEL Lipase Lvl 94 73 - 393 08/12 [place] ELECTROLYT AGAP 10.6 10.0 - 08/12 ES 20.0 [place] ELECTROLYT Globulin 4.0 2.0 - 4.0 08/12 [place] ELECTROLYT A/G Ratio 1.0 0.7 - 1.6 08/12 ES [place] ELECTROLYT B/C Ratio 14 6 - 25 08/12 ES [place] ELECTROLYT eGFR 99 08/12 Result Comment: The [facility] eGFR is calculated using the CKD-EPI formula. In most young, healthy individuals the eGFR will be >90 mL/min/1.73m2 . The eGFR declines with age. An eGFR of 60-89 may be normal in some populations, particularly the elderly, for whom the CKD-EPI formula has not been extensively validated. Use of the eGFR is not recommended in the following populations:< br/>
Amy viduals with unstable creatinine concentration s, including patients and those with serious co-morbid conditions.<b r/>
Patie nts with extremes in muscle mass or diet.

The data above are obtained from the National Kidney Disease Education Program (NKDEP) which additionally recommends that when the eGFR is used in patients with extremes of body mass index for purposes of drug dosing, the eGFR should be multiplied by the estimated BMI. ELECTROLYT ALT 28 0 - 65 08/12 ES [place] ELECTROLYT AST 16 0 - 37 08/12 ES [place] ELECTROLYT Alk Phos 113 39 - 136 08/12 ES [place] ELECTROLYT Albumin Lvl 3.8 3.5 - 5.0 08/12 ES [place] ELECTROLYT Total 7.8 6.4 - 8.4 08/12 ES Protein [place] ELECTROLYT Calcium Lvl 8.5 8.5 - 10.5 08/12 ES [place] ELECTROLYT CO2 28 24 - 32 08/12 ES [place] ELECTROLYT Chloride Lvl 105 95 - 109 08/12 ES [place] ELECTROLYT Sodium Lvl 140 135 - 145 08/12 ES [place] ELECTROLYT Potassium 3.6 3.5 - 5.1 08/12 ES Lvl /2015 [place] ELECTROLYT BUN 11 7 - 22 08/12 ES [place] ELECTROLYT Creatinine 0.76 0.50 - 08/12 ES Lvl 1.40 /2015 [facility] ELECTROLYT Glucose Lvl 107 70 - 99 08/[address] [facility] ELECTROLYT Bili Total 0.5 0.2 - 1.3 08/12 ES [place] HEMATOLOGY Monocytes 6.6 2.0 - 12.0 08/12 [facility] HEMATOLOGY Lymphocytes 25.4 20.0 - 08/12 MH 40.0 /2015 [facility] HEMATOLOGY Eosinophils 0.9 0.0 - 4.0 08/12 [facility] HEMATOLOGY Segs-Bands # 6.5 1.5 - 8.1 08/12 [facility] HEMATOLOGY Basophils 0.4 0.0 - 1.0 08/12 [facility] HEMATOLOGY Eosinophils 0.1 0.0 - 0.5 08/12 MH # /2016 [facility] HEMATOLOGY Monocytes # 0.6 0.0 - 0.8 08/12 [facility] HEMATOLOGY Lymphocytes 2.5 1.0 - 5.5 08/12 MH # /2016 [facility] HEMATOLOGY Segs 66.7 45.0 - 08/12 MH 75.0 /2015 [facility] HEMATOLOGY MCV 89.1 80.0 - 08/12 MH 98.0 /2015 [facility] HEMATOLOGY Platelet 325 133 - 450 08/12 /2015 [facility] HEMATOLOGY RBC 3.88 4.20 - 08/12 MH 5.40 /2015 [facility] HEMATOLOGY Hgb 11.3 12.0 - 08/12 MH 16.0 /2015 [facility] HEMATOLOGY MPV 9.3 7.4 - 10.4 08/12 /2015 [facility] HEMATOLOGY MCHC 32.7 32.0 - 08/12 MH 36.0 /2015 [facility] HEMATOLOGY RDW 13.8 11.5 - 08/12 MH 14.5 /2015 [facility] HEMATOLOGY MCH 29.2 27.0 - 08/12 MH 31.0 /2015 [facility] HEMATOLOGY Hct 34.5 36.0 - 08/12 MH 48.0 /2015 [facility] HEMATOLOGY WBC 9.7 3.7 - 10.4 08/12 /2015 [facility] URINE AND UA Protein Trace Negative 08/12 STOOL *ABN* /2015 [facility] (08/13/15 4:29 AM) URINE AND UA Spec Grav 1.020 <=1.030 08/12 STOOL /2015 [facility] URINE AND UA Color Yellow Yellow 08/12 STOOL *NA* /2015 [facility] (08/13/15 4:29 AM) URINE AND UA Turbidity Clear Clear 08/12 STO[place] (08/13/15 4:29 AM) /2015 [place] URINE AND UA pH 7.0 5.0 - 8.0 08/12 STOOL /2015 [facility] URINE AND UA Glucose Negative Negative 08/12 [facility] (08/13/15 4:29 AM) /2015 [place] URINE AND UA Bili Small Negative 08/12 STOOL *ABN* /2015 [facility] (08/13/15 4:29 AM) URINE AND UA Ketones Negative Negative 08/12 STOOL *NA* /2015 [facility] (08/13/15 4:29 AM) URINE AND UA 4.0 0.1 - 1.0 08/12 STOOL Urobilinogen /2015 [facility] URINE AND UA Blood Trace Negative 08/12 STOOL *ABN* /2015 [facility] (08/13/15 4:29 AM) URINE AND UA Leuk Est Negative Negative 08/12 [facility]08/13/15 4:29 AM[facility] Negative 08/12 [facility] (08/13/15 4:29 AM) [place] URINE AND UA Mucus Few /LPF None Seen 08/12 STOOL /LPF [facility] URINE AND UA Bacteria Occasional None Seen 08/12 STOOL /HPF /HPF /2015 [place] URINE AND UA RBC 6-10 /HPF 0 - 2 08/12 STOOL /2015 [place] URINE AND UA WBC 0-2 /HPF 0 - 5 08/12 STOOL /2015 [place] URINE AND UA Sq Epi Moderate Few /LPF 08/12 STOOL /LPF [facility] URINE CHEM U Preg Negative Negative 08/12 (08/13/15 4:29 AM) [facility] CHEM PANEL eGFR 80 08/09 Result Comment: The [place] eGFR is calculated using the CKD-EPI formula. In most young, healthy individuals the eGFR will be >90 mL/min/1.73m2 . The eGFR declines with age. An eGFR of 60-89 may be normal in some populations, particularly the elderly, for whom the CKD-EPI formula has not been extensively validated. Use of the eGFR is not recommended in the following populations:< br/>
Amy viduals with unstable creatinine concentration s, including patients and those with serious co-morbid conditions.<b r/>
Patie nts with extremes in muscle mass or diet.

The data above are obtained from the National Kidney Disease Education Program (NKDEP) which additionally recommends that when the eGFR is used in patients with extremes of body mass index for purposes of drug dosing, the eGFR should be multiplied by the estimated BMI. CHEM PANEL Glucose Lvl 118 70 - 99 08/09 [place] CHEM PANEL Alk Phos 134 39 - 136 08/09 [place] CHEM PANEL BUN 7 7 - 22 08/09 [place] CHEM PANEL Sodium Lvl 137 135 - 145 08/09 [place] CHEM PANEL Creatinine 0.90 0.50 - 06 MH Lvl 1.40 /2016 [place] CHEM PANEL Potassium 4.0 3.5 - 5.1 08/09 MH Lvl /2015 [place] CHEM PANEL Chloride Lvl 104 95 - 109 08/09 [place] CHEM PANEL Bili Total 0.3 0.2 - 1.3 06 MH [place] CHEM PANEL Calcium Lvl 8.9 8.5 - 10.5 08/09 [place] CHEM PANEL CO2 26 24 - 32 06 [place] CHEM PANEL ASPARTATE 25 0 - 37 06 MH TRANSAMINASE /2015 [place] CHEM PANEL Total 8.6 6.4 - 8.4 08/09 MH Protein /2015 [place] CHEM PANEL ALANINE 42 0 - 65 08/09 MH AMINOTRANSFE /2015 [place] RASE CHEM PANEL Albumin Lvl 4.0 3.5 - 5.0 08/09 MH [place] CHEM PANEL AGAP 11.0 10.0 - 06 MH 20.0 [place] CHEM PANEL Globulin 4.6 2.0 - 4.0 08/09 [place] CHEM PANEL B/C Ratio 8 6 - 25 08/09 [place] CHEM PANEL A/G Ratio 0.9 0.7 - 1.6 08/09 [place] CHEM PANEL Lipase Lvl 95 73 - 393 08/09 [place] HEMATOLOGY Hct 37.5 36.0 - 08/09 MH 48.0 [place] HEMATOLOGY MCV 89.0 80.0 - 08/09 MH 98.0 [place] HEMATOLOGY MCH 29.5 27.0 - 08/09 MH 31.0 [place] HEMATOLOGY MCHC 33.1 32.0 - 08/09 MH 36.0 [place] HEMATOLOGY RDW 14.2 11.5 - 08/09 MH 14.5 [place] HEMATOLOGY MPV 9.3 7.4 - 10.4 08/09 [place] HEMATOLOGY Platelet 365 133 - 450 06 MH [place] HEMATOLOGY WBC X 10x3 8.6 3.7 - 10.4 08/09 [place] HEMATOLOGY Hgb 12.4 12.0 - 08/09 MH 16.0 [place] HEMATOLOGY RBC X 10x6 4.22 4.20 - 08/09 MH 5.40 /2015 [place] HEMATOLOGY Basophils 0.6 0.0 - 1.0 08/09 [place] HEMATOLOGY Lymphocytes 3.0 1.0 - 5.5 08/09 MH [place] HEMATOLOGY Eosinophils 1.3 0.0 - 4.0 08/09 MH /2015 [place] HEMATOLOGY Segs-Bands # 4.9 1.5 - 8.1 08/09 /2015 [place] HEMATOLOGY Monocytes # 0.6 0.0 - 0.8 08/09 MH /2015 [place] HEMATOLOGY Basophils # 0.1 0.0 - 0.2 08/09 /2015 [place] HEMATOLOGY Eosinophils 0.1 0.0 - 0.5 08/09 MH # /2016 [place] HEMATOLOGY Segs 56.3 45.0 - 08/09 MH 75.0 [place] HEMATOLOGY Lymphocytes 34.5 20.0 - 08/09 MH 40.0 [place] HEMATOLOGY Monocytes 7.3 2.0 - 12.0 08/09 [place] URINE AND UA Bili Negative Negative 08/09 STOOL *NA* /2015 [place] (08/10/15 5:42 PM) URINE AND UA Blood Negative Negative 08/09 STO[facility] (08/10/15 5:42 PM) /2015 [place] URINE AND UA Nitrite Negative Negative 08/09 STOOL (08/10/15 5:42 PM) /2015 [facility] URINE AND UA 1.0 0.1 - 1.0 08/09 STOOL Urobilinogen /2015 [place] URINE AND UA Leuk Est Negative Negative 08/09 STOOL (08/10/15 5:42 PM) /2015 [place] URINE AND UA Ketones Negative Negative 08/09 STOOL mg/dL mg/dL /2015 [place] URINE AND UA Glucose Negative Negative 08/09 STOOL mg/dL mg/dL /2015 [place] URINE AND UA Turbidity Clear Clear 08/09 STO[facility] (08/10/15 5:42 PM) /2015 [place] URINE AND UA Color Yellow Yellow 08/09 STOOL *NA* /2015 [place] (08/10/15 5:42 PM) URINE AND UA Protein Negative Negative 08/09 STOOL mg/dL mg/dL /2015 [place] URINE AND UA pH 8.5 5.0 - 8.0 08/09 STOOL /2015 [place] URINE AND UA Spec Grav 1.015 <=1.030 08/09 STOOL /2015 [place] URINE AND UA Sq Epi Occasional Few /LPF 08/09 STOOL /LPF /2015 [place] URINE AND UA WBC 0-2 /HPF None Seen 08/09 STOOL /HPF /2016 [place] URINE AND UA Amorph Occasional None Seen 08/09 STOOL [place] /HPF /HPF /2015 [place] URINE AND UA Bacteria Occasional None Seen 08/09 STOOL /HPF /HPF /2015 [place] URINE AND UA Mucus Few /LPF None Seen 08/09 STOOL /LPF /2015 [place] HEMATOLOGY Monocytes # 0.9 0.0 - 0.8 07/29 [place] HEMATOLOGY Lymphocytes 3.7 1.0 - 5.5 07/29 MH # /2015 [place] HEMATOLOGY Eosinophils 0.2 0.0 - 0.5 07/29 MH # /2015 [place] HEMATOLOGY Segs-Bands # 6.5 1.5 - 8.1 07/29 [place] HEMATOLOGY Basophils # 0.1 0.0 - 0.2 07/29 [place] H[facility] Lymphocytes 32.6 20.0 - 07/29 MH 40.0 [place] [facility] Segs 57.5 45.0 - 07/29 MH 75.0 [place] [facility] Monocytes 8.0 2.0 - 12.0 07/29 [place] Basophils 0.5 0.0 - 1.0 07/29 [place] Eosinophils 1.4 0.0 - 4.0 07/29 [facility] MCH 29.2 27.0 - 07/29 MH 31.0 [place] MCV 89.3 80.0 - 07/29 MH 98.0 [place] Hgb 10.3 12.0 - 07/29 MH 16.0 [facility] Hct 31.5 36.0 - 07/29 MH 48.0 [facility] RBC X 10x6 3.53 4.20 - 07/29 MH 5.40 /2015 [place] WBC X 10x3 11.3 3.7 - 10.4 07/29 [facility] Platelet 271 133 - 450 07/29 [facility] MPV 9.2 7.4 - 10.4 07/29 [facility] RDW 14.1 11.5 - 07/29 MH 14.5 [facility] MCHC 32.7 32.0 - 07/29 MH 36.0 [place] URINE AND UA 0.2 0.1 - 1.0 07/28 [facility] Urobilinogen /2015 [place] [facility]INE [facility] UA Protein Negative Negative 07/28 [facility] (07/29/15 5:56 PM) /2015 [place] URINE AND UA Ketones Negative Negative 07/28 [facility] *NA* /2015 [place] (07/29/15 5:56 PM) URINE AND UA Bili Negative Negative 07/28 [facility] *NA* /2015 [place] (07/29/15 5:56 PM) URINE AND UA Blood Negative Negative 07/28 [facility] (07/29/15 5:56 PM) /2015 [place] URINE AND UA Glucose Negative Negative 07/28 [facility] (07/29/15 5:56 PM) /2015 [place] URINE AND UA pH 6.5 5.0 - 8.0 07/28 [facility] /2015 [place] URINE AND UA Turbidity Clear Clear 07/28 [facility] (07/29/15 5:56 PM) /2015 [place] URINE AND UA Spec Grav <=1.005 <=1.030 07/28 [facility] *NA* /2015 [place] (07/29/15 5:56 PM) URINE AND UA Color Yellow Yellow 07/28 [facility] *NA* /2015 [place] (07/29/15 5:56 PM) URINE AND UA Nitrite Negative Negative 07/28 [facility] (07/29/15 5:56 PM) /2015 [place] URINE AND UA Sq Epi Few /LPF Few /LPF 07/28 [facility] [place] [facility]INE [facility]A Leuk Est Negative Negative 07/28 [facility] (07/29/15 5:56 PM) [place] URINE AND UA WBC 0-2 /HPF None Seen 07/28 STOOL /HPF /2015 [place] URINE AND UA RBC 0-2 /HPF 0 - 2 07/28 STOOL [place] URINE AND UA Bacteria Occasional None Seen 07/28 STOOL /HPF /HPF [place] CHEM PANEL Lipase Lvl 134 73 - 393 07/28 [place] ELECTROLYT AGAP 9.6 10.0 - 07/28 ES 20.0 [place] ELECTROLYT Globulin 4.4 2.0 - 4.0 07/28 ES [place] ELECTROLYT B/C Ratio 8 6 - 25 07/28 ES [place] ELECTROLYT A/G Ratio 0.8 0.7 - 1.6 / MH ES [place] ELECTROLYT Bili Total 0.3 0.2 - 1.3 / MH ES [place] ELECTROLYT Calcium Lvl 8.3 8.5 - 10.5 07/28 MH ES [place] ELECTROLYT CO2 28 24 - 32 07/28 MH ES [place] ELECTROLYT ASPARTATE 21 0 - 37 / MH ES TRANSAMINASE [place] ELECTROLYT Total 8.0 6.4 - 8.4 07/28 MH ES Protein /2015 [place] ELECTROLYT eGFR 93 07/28 MH Comment: The [place] eGFR is calculated using the CKD-EPI formula. In most young, healthy individuals the eGFR will be >90 mL/min/1.73m2 . The eGFR declines with age. An eGFR of 60-89 may be normal in some populations, particularly the elderly, for whom the CKD-EPI formula has not been extensively validated. Use of the eGFR is not recommended in the following populations:< br/>
Amy viduals with unstable creatinine concentration s, including patients and those with serious co-morbid conditions.<b r/>
Patie nts with extremes in muscle mass or diet.

The data above are obtained from the National Kidney Disease Education Program (NKDEP) which additionally recommends that when the eGFR is used in patients with extremes of body mass index for purposes of drug dosing, the eGFR should be multiplied by the estimated BMI. ELECTROLYT Glucose Lvl 94 70 - 99 07/28 MH ES [place] ELECTROLYT Alk Phos 122 39 - 136 07/28 MH ES [place] ELECTROLYT Potassium 3.6 3.5 - 5.1 07/28 MH ES Lvl /2015 [place] ELECTROLYT Sodium Lvl 137 135 - 145 / MH ES [place] ELECTROLYT Creatinine 0.80 0.50 - 07/28 MH ES Lvl 1.40 [place] ELECTROLYT BUN 6 7 - 22 / MH ES [place] ELECTROLYT Chloride Lvl 103 95 - 109 / MH ES [place] ELECTROLYT ALANINE 33 0 - 65 07/28 MH ES AMINOTRANSFE /2015 [place] RASE ELECTROLYT Albumin Lvl 3.6 3.5 - 5.0 / MH ES /2016 [place] HEMATOLOGY Basophils # 0.1 0.0 - 0.2 06/ MH /2015 [place] HEMATOLOGY Eosinophils 0.2 0.0 - 0.5 06/12 MH # /2016 [place] HEMATOLOGY Monocytes # 0.7 0.0 - 0.8 06/ /2015 [place] HEMATOLOGY Lymphocytes 3.0 1.0 - 5.5 06/12 MH # /2016 [place] HEMATOLOGY Segs-Bands # 7.0 1.5 - 8.1 06/ /2015 [place] HEMATOLOGY Basophils 0.5 0.0 - 1.0 06/ /2015 [place] HEMATOLOGY Eosinophils 1.5 0.0 - 4.0 06/ /2015 [place] HEMATOLOGY Monocytes 6.4 2.0 - 12.0 06 [place] HEMATOLOGY Lymphocytes 27.6 20.0 - 06/ MH 40.0 /2015 [place] HEMATOLOGY Segs 64.0 45.0 - 06 MH 75.0 [place] HEMATOLOGY WBC X 10x3 10.9 3.7 - 10.4 06/ /2015 [place] HEMATOLOGY MCV 88.9 80.0 - 06 MH 98.0 /2015 [place] HEMATOLOGY Hct 36.6 36.0 - 07/28 MH 48.0 /2015 [place] HEMATOLOGY Hgb 12.0 12.0 - 07/28 MH 16.0 [place] HEMATOLOGY RBC X 10x6 4.12 4.20 - 06 MH 5.40 /2015 [place] HEMATOLOGY MPV 9.4 7.4 - 10.4 07/28 [place] HEMATOLOGY Platelet 307 133 - 450 07/28 [place] HEMATOLOGY RDW 14.2 11.5 - 06/ MH 14.5 /2015 [place] HEMATOLOGY MCHC 32.8 32.0 - 06/ MH 36.0 [place] HEMATOLOGY MCH 29.2 27.0 - 06 MH 31.0 /2015 [place] CHEM PANEL A/G Ratio 0.8 0.7 - 1.6 / /2015 [place] CHEM PANEL AGAP 8.6 10.0 - 06/11 MH 20.0 [place] CHEM PANEL B/C Ratio 9 6 - 25 06/ [place] CHEM PANEL Globulin 4.3 2.0 - 4.0 06/ MH /2016 [place] CHEM PANEL Bili Total 0.3 0.2 - 1.3 07/27 [place] CHEM PANEL eGFR 92 07/27 Result Comment: The [place] eGFR is calculated using the CKD-EPI formula. In most young, healthy individuals the eGFR will be >90 mL/min/1.73m2 . The eGFR declines with age. An eGFR of 60-89 may be normal in some populations, particularly the elderly, for whom the CKD-EPI formula has not been extensively validated. Use of the eGFR is not recommended in the following populations:< br/>
Amy viduals with unstable creatinine concentration s, including patients and those with serious co-morbid conditions.<b r/>
Patie nts with extremes in muscle mass or diet.

The data above are obtained from the National Kidney Disease Education Program (NKDEP) which additionally recommends that when the eGFR is used in patients with extremes of body mass index for purposes of drug dosing, the eGFR should be multiplied by the estimated BMI. CHEM PANEL Total 7.9 6.4 - 8.4 07/27 Protein [place] CHEM PANEL ASPARTATE 12 0 - 37 07/27 MH TRANSAMINASE [place] CHEM PANEL Chloride Lvl 103 95 - 109 07/27 [place] CHEM PANEL CO2 28 24 - 32 07/27 [place] CHEM PANEL Calcium Lvl 8.5 8.5 - 10.5 07/27 [place] CHEM PANEL Alk Phos 116 39 - 136 07/27 [place] CHEM PANEL Glucose Lvl 106 70 - 99 07/27 [place] CHEM PANEL BUN 7 7 - 22 07/27 [place] CHEM PANEL Creatinine 0.81 0.50 - 07/27 MH Lvl 1.40 [place] CHEM PANEL Sodium Lvl 136 135 - 145 07/27 [place] CHEM PANEL Potassium 3.6 3.5 - 5.1 07/27 MH Lvl [place] CHEM PANEL Albumin Lvl 3.6 3.5 - 5.0 07/27 [place] CHEM PANEL ALANINE 24 0 - 65 07/27 AMINOTRANSFE [place] RASE CHEM PANEL Lipase Lvl 123 73 - 393 07/27 [place] HEMATOLOGY MPV 9.5 7.4 - 10.4 07/27 /2015 [place] HEMATOLOGY RDW 14.3 11.5 - 07/27 MH 14.5 /2015 [place] HEMATOLOGY Platelet 300 133 - 450 07/27 /2015 [place] HEMATOLOGY MCHC 33.2 32.0 - 07/27 MH 36.0 /2015 [place] HEMATOLOGY MCH 29.0 27.0 - 07/27 MH 31.0 [place] HEMATOLOGY MCV 87.4 80.0 - 07/27 MH 98.0 /2015 [place] HEMATOLOGY Hgb 11.4 12.0 - 07/27 MH 16.0 /2015 [place] HEMATOLOGY Hct 34.5 36.0 - 07/27 MH 48.0 /2015 [place] HEMATOLOGY RBC X 10x6 3.95 4.20 - 07/27 MH 5.40 /2015 [place] HEMATOLOGY WBC X 10x3 11.8 3.7 - 10.4 07/27 [place] HEMATOLOGY Basophils 0.3 0.0 - 1.0 07/27 [place] HEMATOLOGY Eosinophils 1.6 0.0 - 4.0 07/27 /2015 [place] HEMATOLOGY Monocytes 8.0 2.0 - 12.0 07/27 [place] HEMATOLOGY Segs 66.1 45.0 - 07/27 MH 75.0 [place] HEMATOLOGY Lymphocytes 24.0 20.0 - 07/27 MH 40.0 [place] HEMATOLOGY Eosinophils 0.2 0.0 - 0.5 07/27 MH # /2015 [place] HEMATOLOGY Monocytes # 0.9 0.0 - 0.8 07/27 [place] HEMATOLOGY Lymphocytes 2.8 1.0 - 5.5 07/27 MH # /2015 [place] HEMATOLOGY Segs-Bands # 7.8 1.5 - 8.1 07/27 [place] URINE AND UA Mucus Rare /LPF None Seen 07/27 STOOL /LPF /2015 [place] URINE AND UA Bacteria Few /HPF None Seen 07/27 STOOL /HPF /2015 [place] URINE AND UA WBC 0-2 /HPF None Seen 07/27 STOOL /HPF /2016 [place] URINE AND UA RBC 3-5 /HPF 0 - 2 07/27 STOOL [place] URINE AND UA Sq Epi Few /LPF Few /LPF 07/27 STOOL /2015 [place] URINE AND UA 0.2 0.1 - 1.0 07/27 STOOL Urobilinogen /2015 [place] URINE AND UA Nitrite Negative Negative 07/27 STOOL (07/28/15 10:29 AM) [facility] and URINE AND UA Leuk Est Negative Negative 07/27 STOOL (07/28/15 10:29 AM) [facility] and URINE AND UA Blood Trace Negative 07/27 STOOL *ABN* /2015 [place] (07/28/15 10:29 AM) URINE AND UA Ketones Negative Negative 07/27 STOOL *NA* /2015 [place] (07/28/15 10:29 AM) URINE AND UA Bili Negative Negative 07/27 STOOL *NA* /2015 [place] (07/28/15 10:29 AM) URINE AND UA Protein Negative Negative 07/27 STOOL (07/28/15 10:29 AM) [facility] and URINE AND UA Glucose Negative Negative 07/27 STOOL (07/28/15 10:29 AM) [facility] and URINE AND UA pH 8.0 5.0 - 8.0 07/27 STOOL [place] URINE AND UA Color Yellow Yellow 07/27 STOOL *NA* /2015 [place] (07/28/15 10:29 AM) URINE AND UA Turbidity Clear Clear 07/27 STOOL (07/28/15 10:29 AM) Su[facility] and URINE AND UA Spec Grav 1.010 <=1.030 07/27 STOOL [place] URINALYSIS UA <=1.0 0.1 - 1.0 02/21 Urobilinogen mg/dL [facility] URINALYSIS UA Protein Negative Negative 02/21 Normal mg/dL [facility] URINALYSIS UA Glucose Negative Negative 02/21 MH mg/dL [place] URINALYSIS UA Ketones Negative Negative 02/21 mg/dL [facility] URINALYSIS UA Sq Epi Many /LPF Few 02/21 ABN [facility] URINALYSIS UA Blood Moderate Negative 02/21 ABN *ABN* /2013 [facility] (02/21/2013 15:40:00) URINALYSIS UA Nitrite Negative Negative 02/21 Normal (02/21/2013 15:40:00) [facility] URINALYSIS UA Leuk Est Negative Negative 02/21 Normal (02/21/2013 15:40:00) [facility] URINALYSIS UA Bili Negative Negative 02/21 *NA* [facility] (02/21/2013 15:40:00) URINALYSIS UA RBC 1 0 - 2 02/[address] [facility] URINALYSIS UA Bacteria Occasional None Seen 02/21 [facility] URINALYSIS UA WBC 1 0 - 5 02/[address] [facility] URINALYSIS UA Color Yellow Yellow 02/21 MH *NA* [facility] (02/21/2013 15:40:00) URINALYSIS UA pH 6.0 5.0 - 8.0 02/[address] [facility] URINALYSIS UA Turbidity Slight Clear 02/21 ABN *ABN* [facility] (02/21/2013 15:40:00) URINALYSIS UA Spec Grav 1.006 <=1.030 02/[address] [facility] CHEMISTRY Amylase Lvl 29 25 - [address] [facility] CHEMISTRY Lipase Lvl 113 73 - 393 02/[address] [facility] CHEMISTRY B/C Ratio 9 6 - 25 02/[address] [facility] CHEMISTRY Globulin 4.4 2.0 - 4.0 02/[address] [facility] CHEMISTRY A/G Ratio 1.0 0.7 - 1.6 02/[address] [facility] CHEMISTRY AGAP 12.6 10.0 - 02/[address] [facility] CHEMISTRY eGFR 110 02/21 <sup>1</sup>R esult [facility] Comment: The eGFR is calculated using the CKD-EPI formula. In most young, healthy individuals the eGFR will be >90 mL/min/1.73m2 . The eGFR declines with age. An eGFR of 60-89 may be normal in some populations, particularly the elderly, for whom the CKD-EPI formula has not been extensively validated. Use of the eGFR is not recommended in the following populations:& lt;br/>
I ndividuals with unstable creatinine concentration s, including patients and those with serious co-morbid conditions.<b r/>
Patie nts with extremes in muscle mass or diet.

The data above are obtained from the National Kidney Disease Education Program (NKDEP) which additionally recommends that when the eGFR is used in patients with extremes of body mass index for purposes of drug dosing, the eGFR should be multiplied by the estimated BMI. CHEMISTRY Total 8.8 6.4 - 8.4 02/[address] [facility] CHEMISTRY Albumin Lvl 4.4 3.5 - 5.0 02/[address] [facility] CHEMISTRY Alk Phos 101 39 - 136 02/[address] [facility] CHEMISTRY ALANINE 122 0 - 65 02/[address] [facility] RASE CHEMISTRY Bili Total 0.9 0.2 - 1.3 02/[address] [facility] CHEMISTRY ASPARTATE 103 0 - 37 02/21 [facility] TRANSAMINASE [facility] CHEMISTRY Creatinine 0.7 0.5 - 1.4 02/[address] [facility] CHEMISTRY Sodium Lvl 140 135 - 145 02/[address] [facility] CHEMISTRY Chloride Lvl 101 95 - 109 02/[address] [facility] CHEMISTRY Potassium 3.6 3.5 - 5.1 02/[address] [facility] CHEMISTRY Calcium Lvl 9.3 8.5 - 10.5 02/[address] [facility] CHEMISTRY CO2 30 24 - 32 02/[address] [facility] CHEMISTRY Glucose Lvl 92 70 - 99 02/21 Normal <sup>2</sup>I nterpretive [facility] Data: Adult reference range values reflect the clinical guidelines
of the [place] [employer]. CHEMISTRY BUN 6 7 - 22 02/[address] [facility] HEMATOLOGY RBC X 10x6 4.69 4.20 - 02/21 Normal MH 5.40 /2013 [facility] HEMATOLOGY WBC X 10x3 10.0 3.7 - 10.4 02/[address] [facility] HEMATOLOGY Hct 42.6 36.0 - 02/21 Normal 48.0 /2013 [facility] HEMATOLOGY Hgb 14.3 12.0 - 02/21 Normal 16.0 /2013 [facility] HEMATOLOGY RDW 12.4 11.5 - 02/21 Normal 14.5 /2013 [facility] HEMATOLOGY MCV 90.7 81.0 - 02/21 Normal 99.0 /2013 [facility] HEMATOLOGY MCH 30.5 27.0 - 02/21 Normal MH 31.0 /2013 [facility] HEMATOLOGY MCHC 33.6 32.0 - 02/21 Normal 36.0 /2013 [facility] HEMATOLOGY MPV 10.5 7.4 - 10.4 02/21 HI MH /2013 [facility] HEMATOLOGY Platelet 273 133 - 450 / Normal /2013 [facility] HEMATOLOGY Segs 60.8 45.0 - 01 Normal MH 75.0 /2013 [facility] HEMATOLOGY Segs-Bands # 6.1 1.5 - 8.1 02/21 Normal /2013 [facility] HEMATOLOGY Basophils 0.5 0.0 - 1.0 / Normal /2013 [facility] HEMATOLOGY Monocytes 8.0 2.0 - 12.0 02/21 Normal /2013 [facility] HEMATOLOGY Lymphocytes 29.9 20.0 - 01 Normal MH 40.0 /2013 [facility] HEMATOLOGY Eosinophils 0.8 0.0 - 4.0 02/21 Normal /2013 [facility] HEMATOLOGY Eosinophils 0.1 0.0 - 0.5 02/21 Normal MH # /2013 [facility] HEMATOLOGY Monocytes # 0.8 0.0 - 0.8 02/21 Normal /2013 [facility] HEMATOLOGY Lymphocytes 3.0 1.0 - 5.5 02/21 Normal MH # /2013 [facility] HEMATOLOGY Basophils # 0.0 0.0 - 0.2 02/21 Normal /2013 [facility] CHEMISTRY U Preg Negative Negative 01/20 Normal (01/20/2013 12:45:00) [facility] URINALYSIS UA WBC <1 0 - 5 01/20 Normal [facility] URINALYSIS UA Leuk Est Negative Negative 01/20 Normal (01/20/2013 12:45:00) [facility] URINALYSIS UA RBC 1 0 - 2 01/20 Normal [facility] URINALYSIS UA Sq Epi Moderate Few 01/20 ABN MH /LPF [place] URINALYSIS UA <=1.0 0.1 - 1.0 01/20 Urobilinogen mg/dL [facility] URINALYSIS UA Bili Negative Negative 01/20 *NA* /2012 [facility] (01/20/2013 12:45:00) URINALYSIS UA Blood Negative Negative 01/20 Normal (01/20/2013 12:45:00) [facility] URINALYSIS UA Nitrite Negative Negative 01/20 Normal (01/20/2013 12:45:00) [facility] [place] URINALYSIS UA Spec Grav 1.015 <=1.030 01/20 Normal [facility] URINALYSIS UA Ketones Trace Negative 01/20 ABN MH mg/dL [facility] URINALYSIS UA Glucose Negative Negative 01/20 MH mg/dL [facility] URINALYSIS UA Protein Negative Negative 01/20 Normal mg/dL [facility] URINALYSIS UA pH 8.0 5.0 - 8.0 01/[address] [facility] URINALYSIS UA Turbidity Slight Clear 01/20 ABN MH *ABN* /2012 [facility] (01/20/2013 12:45:00) URINALYSIS UA Color Yellow Yellow 01/20 *NA* /2012 [facility] (01/20/2013 12:45:00) CHEMISTRY Globulin 4.4 2.0 - 4.0 01/[address] [facility] CHEMISTRY B/C Ratio 8 6 - 25 01/[address] [facility] CHEMISTRY AGAP 9.7 10.0 - 01/[address] [facility] CHEMISTRY A/G Ratio 0.9 0.7 - 1.6 01/[address] [facility] CHEMISTRY eGFR 116 01/20 <sup>1</sup>R esult [facility] Comment: The eGFR is calculated using the CKD-EPI formula. In most young, healthy individuals the eGFR will be >90 mL/min/1.73m2 . The eGFR declines with age. An eGFR of 60-89 may be normal in some populations, particularly the elderly, for whom the CKD-EPI formula has not been extensively validated. Use of the eGFR is not recommended in the following populations:& lt;br/>
I ndividuals with unstable creatinine concentration s, including patients and those with serious co-morbid conditions.<b r/>
Patie nts with extremes in muscle mass or diet.

The data above are obtained from the National Kidney Disease Education Program (NKDEP) which additionally recommends that when the eGFR is used in patients with extremes of body mass index for purposes of drug dosing, the eGFR should be multiplied by the estimated BMI. CHEMISTRY Alk Phos 102 39 - 136 01/[address] [facility] CHEMISTRY ASPARTATE 143 0 - 37 01/[address] [facility] CHEMISTRY Bili Total 0.6 0.2 - 1.3 01/[address] [facility] CHEMISTRY ALANINE 152 0 - 65 01/[address] [facility] RASE CHEMISTRY Calcium Lvl 9.3 8.5 - 10.5 01/20 Normal MH /2012 [place] CHEMISTRY CO2 29 24 - 32 12/05 Normal MH /2012 [place] CHEMISTRY Albumin Lvl 4.1 3.5 - 5.0 12/ Normal MH /2012 [place] CHEMISTRY Total 8.5 6.4 - 8.4 12/ HI MH /2012 [place] CHEMISTRY BUN 5 7 - 22 12/ LOW /2012 [facility] CHEMISTRY Glucose Lvl 103 70 - 99 12/ HI <sup>2</sup>I MH /2012 nterpretive [facility] Data: Adult reference range values reflect the clinical guidelines
of the [place] [employer]. CHEMISTRY Sodium Lvl 139 135 - 145 12/05 Normal MH /2012 [facility] CHEMISTRY Creatinine 0.6 0.5 - 1.4 12/ Normal Lvl /2012 [facility] CHEMISTRY Chloride Lvl 104 95 - 109 12/05 Normal /2012 [facility] CHEMISTRY Potassium 3.7 3.5 - 5.1 12/ Normal Lvl /2012 [facility] CHEMISTRY Lipase Lvl 97 73 - 393 12/ Normal MH /2012 [place] CHEMISTRY Amylase Lvl 33 25 - 115 12/05 Normal /2012 [facility] HEMATOLOGY Eosinophils 0.1 0.0 - 0.5 12/05 Normal MH # /2013 [place] HEMATOLOGY Basophils # 0.0 0.0 - 0.2 12/ Normal MH /2012 [place] HEMATOLOGY Monocytes # 0.7 0.0 - 0.8 12/ Normal /2012 [facility] HEMATOLOGY Lymphocytes 2.7 1.0 - 5.5 12/05 Normal MH # /2012 [place] HEMATOLOGY Eosinophils 0.6 0.0 - 4.0 12/ Normal MH /2012 [place] HEMATOLOGY Basophils 0.2 0.0 - 1.0 12/ Normal MH /2012 [facility] HEMATOLOGY Segs-Bands # 6.6 1.5 - 8.1 12/ Normal MH /2012 [place] HEMATOLOGY Lymphocytes 27.0 20.0 - 12/05 Normal MH 40.0 /2013 [facility] HEMATOLOGY Monocytes 6.7 2.0 - 12.0 12/ Normal MH /2012 [place] HEMATOLOGY Segs 65.5 45.0 - 12/05 Normal MH 75.0 /2012 [facility] HEMATOLOGY MPV 9.5 7.4 - 10.4 12/ Normal /2012 [facility] HEMATOLOGY RDW 12.6 11.5 - 12/05 Normal MH 14.5 /2012 [facility] HEMATOLOGY MCHC 33.0 32.0 - 12/05 Normal MH 36.0 /2012 [facility] HEMATOLOGY Platelet 313 133 - 450 12 Normal /2012 [facility] HEMATOLOGY MCH 30.0 27.0 - 01/20 Normal MH 31.0 /2012 [facility] HEMATOLOGY MCV 90.8 81.0 - 01/20 Normal MH 99.0 /2012 [facility] HEMATOLOGY Hgb 13.1 12.0 - 01/20 Normal MH 16.0 /2012 [facility] HEMATOLOGY Hct 39.8 36.0 - 01/20 Normal MH 48.0 /2012 [facility] HEMATOLOGY RBC X 10x6 4.39 4.20 - 12 Normal MH 5.40 /2012 [facility] HEMATOLOGY WBC X 10x3 10.0 3.7 - 10.4 01/20 Normal /2012 [facility] IMMUNOLOGY Hep C Ab Negative Negative 01/20 MH *NA* /2012 [facility] (01/20/2013 12:18:00) IMMUNOLOGY Hep B Core Negative Negative 01/20 IgM *NA* [facility] (01/20/2013 12:18:00) IMMUNOLOGY Hep A IgM Negative Negative 01/20 *NA* [facility] (01/20/2013 12:18:00) IMMUNOLOGY Hep Bs Ag Negative Negative 01/20 MH *NA* /2012 [facility] (01/20/2013 12:18:00) CHEMISTRY Amylase Lvl 31 25 - 115 01/[address] [facility] CHEMISTRY Lipase Lvl 103 73 - 393 01/[address] [facility] CHEMISTRY TSH 0.760 0.360 - 01/05 Normal MH 3.740 /2012 [facility] CHEMISTRY eGFR 110 01/05 <sup>1</sup>R esult [facility] Comment: The eGFR is calculated using the CKD-EPI formula. In most young, healthy individuals the eGFR will be >90 mL/min/1.73m2 . The eGFR declines with age. An eGFR of 60-89 may be normal in some populations, particularly the elderly, for whom the CKD-EPI formula has not been extensively validated. Use of the eGFR is not recommended in the following populations:& lt;br/>
I ndividuals with unstable creatinine concentration s, including patients and those with serious co-morbid conditions.<b r/>
Patie nts with extremes in muscle mass or diet.

The data above are obtained from the National Kidney Disease Education Program (NKDEP) which additionally recommends that when the eGFR is used in patients with extremes of body mass index for purposes of drug dosing, the eGFR should be multiplied by the estimated BMI. CHEMISTRY BUN 5 7 - [address] [facility] CHEMISTRY Chloride Lvl 106 95 - 109 01/[address] [facility] CHEMISTRY Creatinine 0.7 0.5 - 1.4 01/[address] [facility] CHEMISTRY Sodium Lvl 140 135 - 145 11 Normal MH [facility] CHEMISTRY Potassium 3.8 3.5 - 5.1 01/05 Normal MH l [facility] CHEMISTRY CO2 27 24 - 32 01/05 Normal MH [facility] CHEMISTRY Calcium Lvl 8.5 8.5 - 10.5 01/[address] [facility] CHEMISTRY Glucose Lvl 94 70 - 99 01/05 Normal <sup>3</sup>I nterpretive [facility] Data: Adult reference range values reflect the clinical guidelines
of the [place] [employer]. CHEMISTRY AGAP 10.8 10.0 - 01/[address] [facility] CHEMISTRY Bili 0.4 0.0 - 1.0 01/[address] [facility] CHEMISTRY A/G Ratio 0.8 0.7 - 1.6 01/[address] [facility] CHEMISTRY Globulin 4.1 2.0 - 4.0 01/[address] [facility] CHEMISTRY Bili Direct 0.2 0.0 - 0.3 01/[address] [facility] CHEMISTRY ASPARTATE 101 0 - 37 01/05 [facility] TRANSAMINASE [facility] CHEMISTRY ALANINE 104 0 - 65 01/05 [facility] AM[address]OTRANSFE [facility] RASE CHEMISTRY Alk Phos 87 39 - 136 01/[address] [facility] CHEMISTRY Albumin Lvl 3.3 3.5 - 5.0 01/[address] [facility] CHEMISTRY Bili Total 0.6 0.2 - 1.3 01/[address] [facility] CHEMISTRY Total 7.4 6.4 - 8.4 01/[address] [facility] HEMATOLOGY RBC X 10x6 3.97 4.20 - 11 LOW MH 5.40 /2012 [facility] HEMATOLOGY WBC X 10x3 8.1 3.7 - 10.[address] [facility] HEMATOLOGY RDW 12.7 11.5 - 01/[address] [facility] HEMATOLOGY MPV 9.3 7.4 - 10.4 11 Normal /2012 [facility] HEMATOLOGY Platelet 240 133 - 450 11 Normal /2012 [facility] HEMATOLOGY MCH 30.2 27.0 - 11 Normal MH 31.0 /2012 [facility] HEMATOLOGY MCV 90.7 81.0 - 11 Normal MH 99.0 /2012 [facility] HEMATOLOGY Hct 36.0 36.0 - 01/05 Normal MH 48.0 /2012 [facility] HEMATOLOGY MCHC 33.2 32.0 - 11 Normal MH 36.0 /2012 [facility] HEMATOLOGY Hgb 12.0 12.0 - 11 Normal MH 16.0 /2012 [facility] HEMATOLOGY Eosinophils 0.2 0.0 - 0.5 01/05 Normal MH # /2012 [facility] HEMATOLOGY Basophils # 0.0 0.0 - 0.2 01/05 Normal /2012 [facility] HEMATOLOGY Lymphocytes 3.2 1.0 - 5.5 01/05 Normal MH # /2012 [facility] HEMATOLOGY Segs-Bands # 4.0 1.5 - 8.1 01/05 Normal /2012 [facility] HEMATOLOGY Monocytes # 0.7 0.0 - 0.8 01/05 Normal /2012 [facility] HEMATOLOGY Segs 49.5 45.0 - 01/05 Normal MH 75.0 /2012 [facility] HEMATOLOGY Basophils 0.3 0.0 - 1.0 01/05 Normal /2012 [facility] HEMATOLOGY Eosinophils 2.0 0.0 - 4.0 01/05 Normal /2012 [facility] HEMATOLOGY Monocytes 8.8 2.0 - 12.0 01/05 Normal /2012 [facility] HEMATOLOGY Lymphocytes 39.4 20.0 - 01/05 Normal MH 40.0 /2012 [facility] URINALYSIS UA <=1.0 0.1 - 1.0 01/04 Urobilinogen mg/dL [facility] URINALYSIS UA Hyal Cast 1 0 - 2 01/[address] [facility] URINALYSIS UA Bili Negative Negative 01/04 *NA* /2012 [facility] (01/03/2013 23:30:00) URINALYSIS UA Ketones Negative Negative 01/04 mg/dL [facility] URINALYSIS UA Blood Small Negative 01/04 ABN *ABN* /2012 [facility] (01/03/2013 23:30:00) URINALYSIS UA Nitrite Negative Negative 01/04 Normal (01/03/2013 23:30:00) [facility] URINALYSIS UA Glucose Negative Negative 01/04 mg/dL [facility] URINALYSIS UA RBC 2 0 - [address] [facility] URINALYSIS UA Mucus Few /LPF None Seen 01/04 [facility] URINALYSIS UA Leuk Est Negative Negative 01/04 Normal (01/03/2013 23:30:00) [facility] URINALYSIS UA Sq Epi Few /LPF Few 01/04 [facility] URINALYSIS UA WBC 1 0 - 5 01/[address] [facility] URINALYSIS UA Turbidity Slight Clear 01/04 ABN MH *ABN* [facility] (01/03/2013 23:30:00) URINALYSIS UA Spec Grav 1.015 <=1.030 01/[address] [facility] URINALYSIS UA pH 6.0 5.0 - 8.0 01/[address] [facility] URINALYSIS UA Protein Negative Negative 01/04 Normal mg/dL [facility] URINALYSIS UA Color Yellow Yellow 01/04 MH *NA* [facility] (01/03/2013 23:30:00) CHEMISTRY eGFR 110 01/04 <sup>2</sup>R esult [facility] Comment: The eGFR is calculated using the CKD-EPI formula. In most young, healthy individuals the eGFR will be >90 mL/min/1.73m2 . The eGFR declines with age. An eGFR of 60-89 may be normal in some populations, particularly the elderly, for whom the CKD-EPI formula has not been extensively validated. Use of the eGFR is not recommended in the following populations:& lt;br/>
I ndividuals with unstable creatinine concentration s, including patients and those with serious co-morbid conditions.<b r/>
Patie nts with extremes in muscle mass or diet.

The data above are obtained from the National Kidney Disease Education Program (NKDEP) which additionally recommends that when the eGFR is used in patients with extremes of body mass index for purposes of drug dosing, the eGFR should be multiplied by the estimated BMI. CHEMISTRY Chloride Lvl 105 95 - 109 01/[address] [facility] CHEMISTRY Total 7.9 6.4 - 8.4 01/[address] [facility] CHEMISTRY Calcium Lvl 8.9 8.5 - 10.5 01/04 Normal /2012 [facility] CHEMISTRY CO2 28 24 - 32 01/04 Normal [facility] CHEMISTRY Glucose Lvl 102 70 - 99 01/04 HI <sup>4</sup>I /2012 [facility] Data: Adult reference range values reflect the clinical guidelines
of the [place] [employer]. CHEMISTRY Albumin Lvl 3.8 3.5 - 5.0 01/04 Normal [facility] CHEMISTRY Sodium Lvl 138 135 - 145 01/04 Normal [facility] CHEMISTRY Creatinine 0.7 0.5 - 1.4 01/04 Normal MH Lvl [facility] CHEMISTRY BUN 6 7 - 22 01/04 LOW MH [facility] CHEMISTRY Potassium 3.7 3.5 - 5.1 01/04 Normal MH Lvl [facility] CHEMISTRY ASPARTATE 76 0 - 37 01/04 HI MH TRANSAMINASE [facility] CHEMISTRY Bili Total 0.6 0.2 - 1.3 01/04 Normal [facility] CHEMISTRY Alk Phos 87 39 - 136 01/04 Normal [facility] CHEMISTRY ALANINE 90 0 - 65 01/04 HI AMINOTRANSFE /2012 [facility] RASE CHEMISTRY B/C Ratio 9 6 - 25 01/04 Normal [facility] CHEMISTRY A/G Ratio 0.9 0.7 - 1.6 01/04 Normal [facility] CHEMISTRY Globulin 4.1 2.0 - 4.0 01/04 HI MH /2012 [facility] CHEMISTRY AGAP 8.7 10.0 - 01/04 LOW MH 20.0 [facility] CHEMISTRY Amylase Lvl 41 25 - 115 01/04 Normal [facility] CHEMISTRY Magnesium 1.8 1.8 - 2.4 01/04 Normal MH Lvl [facility] CHEMISTRY Lipase Lvl 138 73 - 393 01/04 Normal [facility] HEMATOLOGY MCHC 33.5 32.0 - 01/04 Normal MH 36.0 /2012 [facility] HEMATOLOGY MPV 8.7 7.4 - 10.4 01/[address] [facility] HEMATOLOGY RDW 12.9 11.5 - 01/04 Normal MH 14.5 /2012 [facility] HEMATOLOGY Platelet 264 133 - 450 01/04 Normal /2012 [facility] HEMATOLOGY WBC X 10x3 10.4 3.7 - 10.4 01/[address] [facility] HEMATOLOGY MCV 89.4 81.0 - 01/04 Normal MH 99.0 /2012 [facility] HEMATOLOGY MCH 29.9 27.0 - 11 Normal MH 31.0 /2012 [facility] HEMATOLOGY Hgb 12.8 12.0 - 01/04 Normal MH 16.0 /2012 [facility] HEMATOLOGY Hct 38.1 36.0 - 11 Normal MH 48.0 /2012 [facility] HEMATOLOGY RBC X 10x6 4.26 4.20 - 01/04 Normal MH 5.40 /2012 [facility] HEMATOLOGY Segs-Bands # 5.3 1.5 - 8.1 01/04 Normal MH /2012 [facility] HEMATOLOGY Lymphocytes 38.2 20.0 - 01/04 Normal MH 40.0 /2012 [facility] HEMATOLOGY Segs 51.5 45.0 - 11 Normal MH 75.0 /2012 [facility] HEMATOLOGY Basophils # 0.0 0.0 - 0.2 11 Normal MH /2012 [facility] HEMATOLOGY Monocytes 8.1 2.0 - 12.0 01/04 Normal /2012 [facility] HEMATOLOGY Basophils 0.3 0.0 - 1.0 01/04 Normal /2012 [facility] HEMATOLOGY Eosinophils 1.9 0.0 - 4.0 01/04 Normal /2012 [facility] HEMATOLOGY Monocytes # 0.8 0.0 - 0.8 01/04 Normal /2012 [facility] HEMATOLOGY Eosinophils 0.2 0.0 - 0.5 11 Normal MH # /2013 [facility] HEMATOLOGY Lymphocytes 4.0 1.0 - 5.5 01/04 Normal MH # /2013 [facility] CHEMISTRY AGAP 9.6 10.0 - 12/[address] [facility] CHEMISTRY B/C Ratio 8 6 - 25 12/[address] [facility] CHEMISTRY Globulin 4.4 2.0 - 4.0 12/16 HI MH /2012 [facility] CHEMISTRY A/G Ratio 0.8 0.7 - 1.6 12/[address] [facility] CHEMISTRY Potassium 3.6 3.5 - 5.1 12/16 Normal Lvl /2012 [facility] CHEMISTRY Sodium Lvl 140 135 - 145 12/[address] [facility] CHEMISTRY Chloride Lvl 104 95 - 109 12/16 Normal /2012 [facility] CHEMISTRY eGFR 94 12/16 <sup>1</sup>R esult [facility] Comment: The eGFR is calculated using the CKD-EPI formula. In most young, healthy individuals the eGFR will be >90 mL/min/1.73m2 . The eGFR declines with age. An eGFR of 60-89 may be normal in some populations, particularly the elderly, for whom the CKD-EPI formula has not been extensively validated. Use of the eGFR is not recommended in the following populations:& lt;br/>
I ndividuals with unstable creatinine concentration s, including patients and those with serious co-morbid conditions.<b r/>
Patie nts with extremes in muscle mass or diet.

The data above are obtained from the National Kidney Disease Education Program (NKDEP) which additionally recommends that when the eGFR is used in patients with extremes of body mass index for purposes of drug dosing, the eGFR should be multiplied by the estimated BMI. CHEMISTRY Creatinine 0.8 0.5 - 1.4 12/[address] [facility] CHEMISTRY BUN 6 7 - 22 12/[address] [facility] CHEMISTRY Glucose Lvl 94 70 - 99 12/16 Normal <sup>2</sup>I nterpretive [facility] Data: Adult reference range values reflect the clinical guidelines
of the [place] [employer]. CHEMISTRY Albumin Lvl 3.6 3.5 - 5.0 12/[address] [facility] CHEMISTRY Alk Phos 111 39 - 136 12/[address] [facility] CHEMISTRY Total 8.0 6.4 - 8.4 12/[address] [facility] CHEMISTRY ALANINE 90 0 - 65 12/16 [facility] AMINOTRANS [facility] RASE CHEMISTRY CO2 30 24 - 32 12/[address] [facility] CHEMISTRY Calcium Lvl 8.8 8.5 - 10.5 12/[address] [facility] CHEMISTRY ASPARTATE 61 0 - 37 12/16 [facility] TRANSAMINASE [facility] CHEMISTRY Bili Total 0.2 0.2 - 1.3 12/[address] [facility] HEMATOLOGY MCHC 33.5 32.0 - 12/[address] [facility] HEMATOLOGY RDW 12.9 11.5 - 12/[address] [facility] HEMATOLOGY WBC X 10x3 9.8 3.7 - 10.4 12/[address] [facility] HEMATOLOGY Platelet 273 133 - 450 12/[address] [facility] HEMATOLOGY MPV 10.1 7.4 - 10.4 12/[address] [facility] HEMATOLOGY MCV 90.0 81.0 - 12/[address] [facility] HEMATOLOGY MCH 30.2 27.0 - 12/16 Normal MH 31.0 /2012 [facility] HEMATOLOGY RBC X 10x6 4.17 4.20 - 12/16 LOW MH 5.40 /2012 [facility] HEMATOLOGY Hct 37.5 36.0 - 12/16 Normal MH 48.0 /2012 [facility] HEMATOLOGY Hgb 12.6 12.0 - 12/16 Normal MH 16.0 /2012 [facility] HEMATOLOGY Lymphocytes 3.9 1.0 - 5.5 12/16 Normal MH # /2013 [facility] HEMATOLOGY Basophils # 0.0 0.0 - 0.2 12/16 Normal /2012 [facility] HEMATOLOGY Eosinophils 0.2 0.0 - 0.5 12/16 Normal MH # /2012 [facility] HEMATOLOGY Monocytes # 0.9 0.0 - 0.8 12/16 HI MH /2012 [facility] HEMATOLOGY Segs-Bands # 4.7 1.5 - 8.1 12/16 Normal /2012 [facility] HEMATOLOGY Basophils 0.4 0.0 - 1.0 12/16 Normal /2012 [facility] HEMATOLOGY Lymphocytes 39.7 20.0 - 12/16 Normal MH 40.0 /2012 [facility] HEMATOLOGY Segs 48.0 45.0 - 12/16 Normal MH 75.0 /2012 [facility] HEMATOLOGY Eosinophils 2.5 0.0 - 4.0 12/16 Normal /2012 [facility] HEMATOLOGY Monocytes 9.4 2.0 - 12.0 12/16 Normal /2012 [facility] CHEMISTRY U Preg Negative Negative 12/16 Normal (12/15/2012 19:35:00) [facility] URINALYSIS UA Color Ltyellow 12/16 [facility] URINALYSIS UA <=1.0 0.1 - 1.0 12/16 Urobilinogen mg/dL /2012 [facility] URINALYSIS UA Turbidity Slight Clear 12/16 ABN MH *ABN* /2012 [facility] (12/15/2012 19:35:00) URINALYSIS UA Spec Grav 1.012 <=1.030 12/16 Normal [facility] URINALYSIS UA Bacteria Occasional None Seen 12/16 / /2012 [facility] URINALYSIS UA RBC 1 0 - 2 12/16 Normal [facility] URINALYSIS UA Blood Negative Negative 12/16 Normal (12/15/2012 19:35:00) [facility] URINALYSIS UA Nitrite Negative Negative 12/16 Normal (12/15/2012 19:35:00) [facility] URINALYSIS UA WBC 1 0 - 5 12/[address] [facility] URINALYSIS UA Leuk Est Negative Negative 12/16 Normal (12/15/2012 19:35:00) [facility] URINALYSIS UA Sq Epi Moderate Few 12/16 ABN MH /LPF [facility] URINALYSIS UA Protein Negative Negative 12/16 Normal mg/dL [facility] URINALYSIS UA Glucose Negative Negative 12/16 mg/dL [facility] URINALYSIS UA pH 6.0 5.0 - 8.0 12/[address] [facility] URINALYSIS UA Ketones Negative Negative 12/16 mg/dL [facility] URINALYSIS UA Bili Negative Negative 12/16 *NA* [facility] (12/15/2012 19:35:00) CHEMISTRY AGAP 11.5 10.0 - 08/[address] [facility] CHEMISTRY Globulin 4.8 2.0 - 4.0 08/[address] [facility] CHEMISTRY B/C Ratio 6 6 - 25 08/[address] [facility] CHEMISTRY A/G Ratio 0.9 0.7 - 1.6 08/[address] [facility] CHEMISTRY eGFR 94 08/18 NA <sup>1</sup>R esult [facility] Comment: The eGFR is calculated using the CKD-EPI formula. In most young, healthy individuals the eGFR will be >90 mL/min/1.73m2 . The eGFR declines with age. An eGFR of 60-89 may be normal in some populations, particularly the elderly, for whom the CKD-EPI formula has not been extensively validated. Use of the eGFR is not recommended in the following populations:& lt;br/>
I ndividuals with unstable creatinine concentration s, including patients and those with serious co-morbid conditions.<b r/>
Patie nts with extremes in muscle mass or diet.

The data above are obtained from the National Kidney Disease Education Program (NKDEP) which additionally recommends that when the eGFR is used in patients with extremes of body mass index for purposes of drug dosing, the eGFR should be multiplied by the estimated BMI. CHEMISTRY CO2 30 24 - 32 08/[address] [facility] CHEMISTRY Creatinine 0.8 0.5 - 1.4 08/18 Normal Lvl /2013 [facility] CHEMISTRY Calcium Lvl 9.3 8.5 - 10.5 07/03 Normal /2012 [facility] CHEMISTRY Alk Phos 115 39 - 136 07/03 Normal MH /2012 [facility] CHEMISTRY Albumin Lvl 4.1 3.5 - 5.0 07/03 Normal MH /2012 [facility] CHEMISTRY Total 8.9 6.4 - 8.4 07/03 HI MH Protein /2012 [facility] CHEMISTRY ALT 40 0 - 65 07/03 Normal /2012 [facility] CHEMISTRY AST 24 0 - 37 07/03 Normal /2012 [facility] CHEMISTRY Bili Total 0.2 0.2 - 1.3 07/ Normal /2012 [facility] CHEMISTRY Glucose Lvl 87 70 - 99 07/ Normal <sup>2</sup>I /[address] [facility] Data: Adult reference range values reflect the clinical guidelines
of the [place] [employer]. CHEMISTRY BUN 5 7 - 22 07/ LOW /2012 [facility] CHEMISTRY Potassium 3.5 3.5 - 5.1 07/ Normal Lvl /2012 [facility] CHEMISTRY Sodium Lvl 139 135 - 145 07/03 Normal MH /2012 [facility] CHEMISTRY Chloride Lvl 101 95 - 109 07/03 Normal /2012 [facility] HEMATOLOGY Basophils # 0.1 0.0 - 0.2 07/03 Normal /2012 [facility] HEMATOLOGY Eosinophils 0.2 0.0 - 0.5 07/03 Normal # /2012 [facility] HEMATOLOGY Monocytes # 0.8 0.0 - 0.8 07/03 Normal MH /2012 [facility] HEMATOLOGY Lymphocytes 22.5 20.0 - 07/03 Normal 40.0 /2013 [facility] HEMATOLOGY Segs 65.7 45.0 - 07/03 Normal 75.0 /2013 [facility] HEMATOLOGY Lymphocytes 2.0 1.0 - 5.5 07/03 Normal # /2013 [facility] HEMATOLOGY Segs-Bands # 5.7 1.5 - 8.1 07/03 Normal MH /2012 [facility] HEMATOLOGY Basophils 0.7 0.0 - 1.0 07/03 Normal /2012 [facility] HEMATOLOGY Eosinophils 2.2 0.0 - 4.0 07/03 Normal MH /2012 [facility] HEMATOLOGY Monocytes 8.9 2.0 - 12.0 07/03 Normal /2012 [facility] HEMATOLOGY PTT 29.0 22.9 - 07/03 Normal <sup>5</sup>I 35.8 /[address] [facility] Data: Heparin Therapeutic Range: 57 - 92 Second[facility] HEMATOLOGY PT 12.2 12.0 - 07/ Normal 14.7 /2012 [facility] HEMATOLOGY INR 0.88 0.85 - 08/18 Normal <sup>3</sup>I 1.17 /[address] [facility] Data: RECOMMENDED RANGES FOR PROTIME INR:
2.0-3.0 for most medical and surgical thromboemboli c states.
2.5-3.5 for artificial heart valves and recurrent embolism.<br/ >
INR SHOULD BE USED ONLY FOR PATIENTS ON STABLE ANTICOAGULANT THERAPY. HEMATOLOGY MPV 9.4 7.4 - 10.4 / Normal /2012 [facility] HEMATOLOGY RDW 13.1 11.5 - 08/18 Normal 14.5 /2012 [facility] HEMATOLOGY Platelet 295 133 - 450 08/18 Normal /2012 [facility] HEMATOLOGY MCV 90.3 81.0 - 08/18 Normal 99.0 /2012 [facility] MCH 29.5 27.0 - 08/18 Normal 31.0 /2012 [facility] HEMATOLOGY Hct 40.0 36.0 - 08/18 Normal 48.0 /2012 [facility] HEMATOLOGY Hgb 13.1 12.0 - 08/18 Normal 16.0 /2012 [facility] MCHC 32.7 32.0 - 08/18 Normal 36.0 /2012 [facility] HEMATOLOGY RBC 4.43 4.20 - 08/18 Normal 5.40 /2012 [facility] HEMATOLOGY WBC 8.7 3.7 - 10.4 08/18 Normal /2012 [facility] HEMATOLOGY D-Dimer 0.55 08/18 NA <sup>4</sup>I /[address] [facility] Data: In DIC, quantitative D-Dimer is generally greater than
0.66 ug/mL FEU. Values of quantitative D-Dimer less than
0.40 ug/mL FEU have been reported to be associated with a low
probabil ity of deep vein thrombosis/pu lmonary embolism.
This test alone should not be used to rule out DVT/PE. URINALYSIS UA Color Ltyellow 07/05 NA /2012 [facility] URINALYSIS UA 0.1 - 1.0 07/05 [facility] Urobilinogen /2012 [facility] URINALYSIS UA WBC <1 0 - 5 07/[address] [facility] URINALYSIS UA RBC 2 0 - [address] 07/[address] [facility] URINALYSIS UA Bili Negative Negative 07/05 [facility] *NA [facility] (07/05/2012 11:38:00) URINALYSIS UA Spec Grav 1.009 <=1.030 07/[address] [facility] URINALYSIS UA Blood Negative Negative 07/05 Normal (07/05/2012 11:38:00) [facility] URINALYSIS UA Glucose Negative mg/dL Negative 07/05 NA *NA* /2012 [facility] (07/05/2012 11:38:00) URINALYSIS UA Protein Negative mg/dL Negative 07/05 Normal (07/05/2012 11:38:00) [facility] URINALYSIS UA pH 8.0 5.0 - 8.0 07/[address] [facility] URINALYSIS UA Nitrite Negative Negative 07/05 Normal (07/05/2012 11:38:00) [facility] URINALYSIS UA Sq Epi Occasional /LPF Few 07/05 NA *NA* /2012 [facility] (07/05/2012 11:38:00) URINALYSIS UA Leuk Est Negative Negative 07/05 Normal (07/05/2012 11:38:00) [facility] URINALYSIS UA Ketones Negative mg/dL Negative 07/05 [facility] *NA* [facility] (07/05/2012 11:38:00) URINALYSIS UA Turbidity Clear Clear 07/05 Normal (07/05/2012 11:38:00) [facility] HEMATOLOGY Sed Rate 30 0 - 20 04/[address] [facility] HEMATOLOGY dRVVT 48.0 <=42.9 04/[address] [facility] HEMATOLOGY Hex Phos N Negative Negative 04/27 Normal (04/27/2012 10:37:00) [facility] HEMATOLOGY Lup Interp The DRVVT 04/27 [facility] screen /2012 [facility] lupus anticoagul ant is abnormal; however, the hexagonal phospholip id neutraliza tion test is negative. Clinical correlatio n is recommende d with additional testing, to include repeat DRVVT, factor assays, and anticardio lipin antibody assays if clinically indicated. Interpreta tion performed at [facility]. IMMUNOLOGY CHANTEL Negative Negative 04/27 Normal (04/27/2012 10:37:00) /2012 [facility] IMMUNOLOGY ROBINSON Ser Serum 04/27 NA Interp immunofixa /2012 [facility] tion electropho resis reveals a polyclonal pattern of immunoglob ulins. No monoclonal proteins are identified . Interpreta tion performed at [facility]. IMMUNOLOGY ROBINSON Ser Not 04/[address] [facility] IMMUNOLOGY Tot Prot 7.7 6.4 - 8.4 04/27 Normal MH (SPE) /2012 [facility] IMMUNOLOGY Beta Glob 1.12 0.50 - 04/27 Normal MH 1.15 /2012 [facility] IMMUNOLOGY Alpha 1 % 3.6 2.8 - 4.9 04/27 Normal MH /2012 [facility] IMMUNOLOGY Gamma Glob 1.36 0.71 - 04/27 Normal MH 1.57 /2012 [facility] IMMUNOLOGY Albumin 4.07 3.57 - 04/27 Normal (SPE) 5.55 /2012 [facility] IMMUNOLOGY SPE Interp Total 04/27 NA MH protein /2012 [facility] and serum albumin levels are within reference ranges. All globulin fractions are present in a normal distributi on. No monoclonal proteins are identified . Serum capillary electropho resis is without significan t abnormalit ies. Interpreta tion performed at [facility]. IMMUNOLOGY Alpha 1 Glob 0.28 0.18 - 04/27 Normal 0.41 /2012 [facility] IMMUNOLOGY Beta % 14.5 7.8 - 13.7 04/27 HI /2012 [facility] IMMUNOLOGY Alpha 2 % 11.4 7.0 - 11.9 04/27 Normal MH /2012 [facility] IMMUNOLOGY Albumin % 52.8 55.8 - 04/27 LOW MH 66.1 /2012 [facility] IMMUNOLOGY Gamma % 17.7 11.1 - 03 Normal MH 18.7 /2012 [facility] IMMUNOLOGY Alpha 2 Glob 0.88 0.45 - 04/27 Normal 1.00 /2012 [facility] CHEMISTRY Chloride Lvl 101 95 - 109 04/27 Normal /2012 [facility] CHEMISTRY Potassium 4.2 3.5 - 5.1 04/27 Normal Lvl /2012 [facility] CHEMISTRY Sodium Lvl 139 135 - 145 04/27 Normal /2012 [facility] CHEMISTRY eGFR 111 04/27 NA <sup>1</sup>R esult [facility] Comment: The eGFR is calculated using the CKD-EPI formula. In most young, healthy individuals the eGFR will be >90 mL/min/1.73m2 . The eGFR declines with age. An eGFR of 60-89 may be normal in some populations, particularly the elderly, for whom the CKD-EPI formula has not been extensively validated. Use of the eGFR is not recommended in the following populations:& lt;br/>
I ndividuals with unstable creatinine concentration s, including patients and those with serious co-morbid conditions.<b r/>
Patie nts with extremes in muscle mass or diet.

The data above are obtained from the National Kidney Disease Education Program (NKDEP) which additionally recommends that when the eGFR is used in patients with extremes of body mass index for purposes of drug dosing, the eGFR should be multiplied by the estimated BMI. CHEMISTRY ALT 35 0 - 65 04/27 Normal MH /2012 [facility] CHEMISTRY Alk Phos 90 39 - 136 04/[address] [facility] CHEMISTRY Bili Total 0.3 0.2 - 1.3 04/[address] [facility] CHEMISTRY AST 21 0 - 37 04/[address] [facility] CHEMISTRY Albumin Lvl 3.4 3.5 - 5.0 04/[address] [facility] CHEMISTRY CO2 31 24 - 32 04/[address] [facility] CHEMISTRY Calcium Lvl 8.9 8.5 - 10.5 04/[address] [facility] CHEMISTRY Total 7.6 6.4 - 8.4 04/[address] [facility] CHEMISTRY Glucose Lvl 93 70 - 99 04/27 Normal <sup>4</sup>I nterpretive [facility] Data: Adult reference range values reflect the clinical guidelines
of the [place] [employer]. CHEMISTRY BUN 6 7 - 22 04/[address] [facility] CHEMISTRY Creatinine 0.7 0.5 - 1.4 04/27 Normal MH Lvl /2012 [facility] CHEMISTRY B/C Ratio 9 6 - 25 04/[address] [facility] CHEMISTRY Globulin 4.2 2.0 - 4.0 / HI MH /2012 [facility] CHEMISTRY A/G Ratio 0.8 0.7 - 1.6 04/[address] [facility] CHEMISTRY AGAP 11.2 10.0 - 04/27 Normal MH 20.0 /2013 [facility] HEMATOLOGY Basophils # 0.1 0.0 - 0.2 04/27 Normal MH /2012 [facility] HEMATOLOGY Eosinophils 0.3 0.0 - 0.5 / Normal MH # /2013 [facility] HEMATOLOGY Monocytes # 1.1 0.0 - 0.8 / HI MH /2012 [facility] HEMATOLOGY Eosinophils 2.3 0.0 - 4.0 04/27 Normal MH /2012 [facility] HEMATOLOGY Lymphocytes 3.3 1.0 - 5.5 / Normal MH # /2013 [facility] HEMATOLOGY Segs-Bands # 8.6 1.5 - 8.1 04/27 HI MH /2012 [facility] HEMATOLOGY Basophils 0.7 0.0 - 1.0 04/27 Normal MH /2012 [facility] HEMATOLOGY Monocytes 8.2 2.0 - 12.0 04/27 Normal MH /2012 [facility] HEMATOLOGY Lymphocytes 24.7 20.0 - 04/27 Normal 40.0 /2012 [facility] HEMATOLOGY Segs 64.1 45.0 - 04/27 Normal MH 75.0 /2012 [facility] HEMATOLOGY RBC Morph Normal 04/27 Normal (04/27/2012 06:22:00) /2012 [facility] HEMATOLOGY Plt Morph Normal 04/27 Normal (04/27/2012 06:22:00) /2012 [facility] HEMATOLOGY INR 2.82 0.85 - 04/27 HI <sup>7</sup>I MH 1.17 /[address] [facility] Data: RECOMMENDED RANGES FOR PROTIME INR:
2.0-3.0 for most medical and surgical thromboemboli c states.
2.5-3.5 for artificial heart valves and recurrent embolism.<br/ >
INR SHOULD BE USED ONLY FOR PATIENTS ON STABLE ANTICOAGULANT THERAPY. HEMATOLOGY PT 29.6 12.0 - 04/27 HI MH 14.7 /2012 [facility] HEMATOLOGY RDW 13.2 11.5 - 04/27 Normal MH 14.5 /2012 [facility] HEMATOLOGY Platelet 254 133 - 450 04/27 Normal MH /2012 [facility] HEMATOLOGY MPV 9.4 7.4 - 10.4 04/27 Normal MH /2012 [facility] HEMATOLOGY Hgb 12.5 12.0 - 04/27 Normal 16.0 /2012 [facility] HEMATOLOGY Hct 37.3 36.0 - 04/27 Normal 48.0 /2012 [facility] HEMATOLOGY MCV 91.1 81.0 - 04/27 Normal 99.0 /2012 [facility] HEMATOLOGY MCH 30.5 27.0 - 04/27 Normal MH 31.0 /2012 [facility] HEMATOLOGY MCHC 33.5 32.0 - 04/27 Normal 36.0 /2012 [facility] HEMATOLOGY WBC 13.3 3.7 - 10.4 04/27 HI MH /2012 [facility] HEMATOLOGY RBC 4.10 4.20 - 04/27 LOW MH 5.40 /2012 [facility] URINALYSIS UA 0.1 - 1.0 04/26 NA Urobilinogen /2012 [facility] URINALYSIS UA Color Ltyellow 04/26 NA [facility] URINALYSIS UA Nitrite Negative Negative 04/26 Normal (04/26/2012 13:40:00) [facility] URINALYSIS UA Sq Epi Occasional /LPF Few 04/26 NA *NA* [facility] (04/26/2012 13:40:00) URINALYSIS UA Blood Small Negative 04/26 ABN *ABN* [facility] (04/26/2012 13:40:00) URINALYSIS UA RBC 2 0 - 2 04/26 Normal [facility] URINALYSIS UA WBC 1 0 - 5 04/26 Normal [facility] URINALYSIS UA Ketones Negative mg/dL Negative 04/26 NA *NA* [facility] (04/26/2012 13:40:00) URINALYSIS UA Glucose Negative mg/dL Negative 04/26 NA *NA* [facility] (04/26/2012 13:40:00) URINALYSIS UA Leuk Est Negative Negative 04/26 Normal (04/26/2012 13:40:00) [facility] URINALYSIS UA Protein Negative mg/dL Negative 04/26 Normal (04/26/2012 13:40:00) [facility] URINALYSIS UA Bili Negative Negative 04/26 NA *NA* [facility] (04/26/2012 13:40:00) URINALYSIS UA Spec Grav 1.011 <=1.030 04/26 Normal [facility] URINALYSIS UA Turbidity Clear Clear 04/26 Normal (04/26/2012 13:40:00) [facility] URINALYSIS UA pH 6.0 5.0 - 8.0 04/[address] [facility] HEMATOLOGY PT 24.3 12.0 - 04/26 HI 14.7 /2012 [facility] HEMATOLOGY INR 2.18 0.85 - 04/26 HI <sup>8</sup>I MH 1.17 /[address] [facility] Data: RECOMMENDED RANGES FOR PROTIME INR:
2.0-3.0 for most medical and surgical thromboemboli c states.
2.5-3.5 for artificial heart valves and recurrent embolism.<br/ >
INR SHOULD BE USED ONLY FOR PATIENTS ON STABLE ANTICOAGULANT THERAPY. HEMATOLOGY MPV 9.9 7.4 - 10.4 03/11 Normal MH /2012 [facility] HEMATOLOGY Hgb 12.8 12.0 - 03/ Normal MH 16.0 /2012 [facility] HEMATOLOGY RBC 4.20 4.20 - 04/26 Normal MH 5.40 /2012 [facility] HEMATOLOGY MCHC 32.8 32.0 - 03 Normal MH 36.0 /2012 [facility] HEMATOLOGY RDW 12.6 11.5 - 04/26 Normal MH 14.5 /2012 [facility] HEMATOLOGY Platelet 267 133 - 450 / Normal MH /2012 [facility] HEMATOLOGY MCH 30.4 27.0 - 04/26 Normal MH 31.0 /2012 [facility] HEMATOLOGY Hct 38.9 36.0 - 03/ Normal MH 48.0 /2012 [facility] HEMATOLOGY MCV 92.5 81.0 - 03 Normal MH 99.0 /2012 [facility] HEMATOLOGY WBC 14.0 3.7 - 10.4 / HI MH /2012 [facility] HEMATOLOGY Monocytes 7.1 2.0 - 12.0 /11 Normal /2012 [facility] HEMATOLOGY Eosinophils 1.6 0.0 - 4.0 / Normal /2012 [facility] HEMATOLOGY Lymphocytes 27.6 20.0 - 04/26 Normal MH 40.0 /2012 [facility] HEMATOLOGY Segs 63.3 45.0 - 03/11 Normal MH 75.0 /2012 [facility] HEMATOLOGY Segs-Bands # 8.9 1.5 - 8.1 03/11 HI MH /2012 [facility] HEMATOLOGY Basophils 0.4 0.0 - 1.0 03/11 Normal MH /2012 [facility] HEMATOLOGY Lymphocytes 3.9 1.0 - 5.5 03/11 Normal MH # /2013 [facility] HEMATOLOGY Eosinophils 0.2 0.0 - 0.5 03/11 Normal MH # /2013 [facility] HEMATOLOGY Monocytes # 1.0 0.0 - 0.8 03/11 HI MH /2012 [facility] HEMATOLOGY Basophils # 0.1 0.0 - 0.2 03/11 Normal MH /2012 [facility] CHEMISTRY Total CK 92 12 - 191 03 Normal /2012 [facility] HEMATOLOGY PT 25.5 12.0 - 0310 HI MH 14.7 /2012 [facility] HEMATOLOGY INR 2.32 0.85 - 10 HI <sup>9</sup>I MH 1.17 /[address] [facility] Data: RECOMMENDED RANGES FOR PROTIME INR:
2.0-3.0 for most medical and surgical thromboemboli c states.
2.5-3.5 for artificial heart valves and recurrent embolism.<br/ >
INR SHOULD BE USED ONLY FOR PATIENTS ON STABLE ANTICOAGULANT THERAPY. HEMATOLOGY PTT 67.2 22.9 - 04/25 HI <sup>10</sup> MH 35.8 /[address] [facility] Data: Heparin Therapeutic Range: 57 - 92 Seconds HEMATOLOGY MCH 30.5 27.0 - 03 Normal MH 31.0 /2012 [facility] HEMATOLOGY Platelet 257 133 - 450 04/25 Normal /2012 [facility] HEMATOLOGY MCHC 33.5 32.0 - 03 Normal 36.0 /2012 [facility] HEMATOLOGY RDW 12.9 11.5 - 0310 Normal MH 14.5 /2012 [facility] HEMATOLOGY MCV 90.9 81.0 - 03 Normal 99.0 /2012 [facility] HEMATOLOGY MPV 9.3 7.4 - 10.4 / Normal /2012 [facility] HEMATOLOGY Hgb 12.4 12.0 - 03 Normal 16.0 /2012 [facility] HEMATOLOGY Hct 37.1 36.0 - 03 Normal 48.0 /2012 [facility] HEMATOLOGY WBC 12.3 3.7 - 10.4 /10 HI /2012 [facility] HEMATOLOGY RBC 4.08 4.20 - 03/10 LOW MH 5.40 /2013 [facility] HEMATOLOGY Eosinophils 0.2 0.0 - 0.5 03/10 Normal MH # /2012 [facility] HEMATOLOGY Basophils # 0.0 0.0 - 0.2 03/10 Normal /2012 [facility] HEMATOLOGY Lymphocytes 3.6 1.0 - 5.5 03/10 Normal MH # /2012 [facility] HEMATOLOGY Monocytes # 0.9 0.0 - 0.8 03/10 HI /2012 [facility] HEMATOLOGY Segs 61.2 45.0 - 03 Normal MH 75.0 /2012 [facility] HEMATOLOGY Segs-Bands # 7.5 1.5 - 8.1 03/[address] [facility] HEMATOLOGY Basophils 0.4 0.0 - 1.0 04/[address] [facility] HEMATOLOGY Lymphocytes 29.1 20.0 - 04/[address] [facility] HEMATOLOGY Monocytes 7.6 2.0 - 12.0 04/[address] [facility] HEMATOLOGY Eosinophils 1.7 0.0 - 4.0 04/[address] [facility] HEMATOLOGY PTT 47.9 22.9 - 04/24 HI <sup>11</sup> MH 35.8 /[address] [facility] Data: Heparin Therapeutic Range: 57 - 92 Seconds HEMATOLOGY Protein C 42 72 - 147 04/[address] [facility] HEMATOLOGY Protein S 74 54 - 137 04/[address] [facility] HEMATOLOGY Hex Phos N Positive Negative 04/23 Normal (04/23/2012 14:57:00) [facility] HEMATOLOGY dRVVT 41.5 <=42.9 04/[address] [facility] HEMATOLOGY Lup Interp The DRVV 04/[address] [facility] screen for [facility] lupus anticoagul ant is within normal limits. However, the hexagonal phospholip id neutraliza tion (HPN) test is positive, suggesting the presence of a lupus anticoagul ant. Clinical correlatio n is recommende d as transientl y positive and false positive results may be observed and these tests may be invalid for patients on anticoagul ant therapy. If clinically indicated, additional testing to include repeat DRVV and HPN tests at a clinically appropriat e interval, factor assays if appropriat e, and anticardio lipin antibody assays is recommende d. Interpreta tion performed at [facility]. HEMATOLOGY F5 Leiden FACTOR V 04/23 [facility] Intrp LEIDEN: [facility] Negative INTERPRETA TION: Molecular analysis for the Factor V Leiden, [id number] mutation was negative. Other causes of activated protein C resistance and hereditary forms of venous thrombosis are not ruled out. Final diagnosis required correlatio n with clinical history and other pertinent laboratory findings. Where appropriat e, medical consultati on and/or genetic counseling should be offered to inform and explain the risk implicatio ns and genetic implicatio ns of these test results. CPT: 21768 ASSAY LIMITATION S: The assay uses the FDA-cleare d Shirin Factor V Leiden IVD([place] ase chain reaction/F RET detection) , [employer] as well as [employer] 1[employer] Instrument . A 222-bp fragment of Factor V gene (FV) containing the Factor V Leiden sequence is amplified in the assay. The assay is designed to detect the G [id number] mutation only. Other causes of activated protein C resistance and hereditary forms of venous thrombosis are to ruled out. However, melting curve analysis may implicate the presence of possible rare mutations at position. 1689, 1692 and 1696 (further testing will be recommende d in the report). A minimum detection level is 202 copies of Factor V Leiden per reaction. The level of agreement between the Factor V Leiden Kit and sequence analysis was 99.4%. The test result must be interprete d along with the patient's clinical history and other pertinent laboratory data.This assay has been validated by [facility] . HEMATOLOGY F5 Leiden Negative 04/23 Normal PCR (04/23/2012 14:57:00) /2012 [facility] IMMUNOLOGY Homocyst Tot 4.5 3.7 - 13.9 04/[address] [facility] IMMUNOLOGY Cardiolipin 3 04/23 NA <sup>14</sup> IgG Interpretive [facility] Data: Reference Ranges for IgG:
0-14 GPL Negative
15-20 GPL Inconclusive< br/>21-80 GPL Low-Med Positive
> 80 GPL Strong Positive IMMUNOLOGY Cardiolipin 6.1 04/23 NA <sup>15</sup> IgM Interpretive [facility] Data: Reference Ranges for IgM:
0-12 .4 MPL Negative
12.5-20 MPL Inconclusive< br/>21-80 MPL Low-Med Positive
> 80 MPL Strong Positive IMMUNOLOGY Cardiolipin 1 04/23 NA <sup>13</sup> IgA Interpretive [facility] Data: Reference Ranges for IgA:
0-11 APL Negative
12-20 APL Inconclusive< br/>21-80 APL Low-Med Positive
> 80 APL Strong Positive CHEMISTRY AGAP 13.0 10.0 - 04/[address] [facility] CHEMISTRY Chloride Lvl 103 95 - 109 04/[address] [facility] CHEMISTRY Sodium Lvl 140 135 - 145 04/[address] [facility] CHEMISTRY Potassium 4.0 3.5 - 5.1 04/23 Normal [facility] CHEMISTRY eGFR 111 04/23 NA <sup>2</sup>R [facility] Comment: The eGFR is calculated using the CKD-EPI formula. In most young, healthy individuals the eGFR will be >90 mL/min/1.73m2 . The eGFR declines with age. An eGFR of 60-89 may be normal in some populations, particularly the elderly, for whom the CKD-EPI formula has not been extensively validated. Use of the eGFR is not recommended in the following populations:& lt;br/>
I ndividuals with unstable creatinine concentration s, including patients and those with serious co-morbid conditions.<b r/>
Patie nts with extremes in muscle mass or diet.

The data above are obtained from the National Kidney Disease Education Program (NKDEP) which additionally recommends that when the eGFR is used in patients with extremes of body mass index for purposes of drug dosing, the eGFR should be multiplied by the estimated BMI. CHEMISTRY BUN 4 7 - 22 04/[address] [facility] CHEMISTRY Glucose Lvl 95 70 - 99 04/23 Normal <sup>5</sup>I nterpretive [facility] Data: Adult reference range values reflect the clinical guidelines
of the [place] [employer]. CHEMISTRY CO2 28 24 - 32 04/[address] [facility] CHEMISTRY Calcium Lvl 9.1 8.5 - 10.5 04/[address] [facility] CHEMISTRY Creatinine 0.7 0.5 - 1.4 04/[address] [facility] HEMATOLOGY PTT 46.1 22.9 - 03 HI <sup>12</sup> MH 35.8 /[address] [facility] Data: Heparin Therapeutic Range: 57 - 92 Seconds CHEMISTRY AGAP 10.8 10.0 - 04/21 Normal MH 20.0 /2012 [facility] CHEMISTRY eGFR 111 04/21 NA <sup>3</sup>R [facility] Comment: The eGFR is calculated using the CKD-EPI formula. In most young, healthy individuals the eGFR will be >90 mL/min/1.73m2 . The eGFR declines with age. An eGFR of 60-89 may be normal in some populations, particularly the elderly, for whom the CKD-EPI formula has not been extensively validated. Use of the eGFR is not recommended in the following populations:& lt;br/>
I ndividuals with unstable creatinine concentration s, including patients and those with serious co-morbid conditions.<b r/>
Patie nts with extremes in muscle mass or diet.

The data above are obtained from the National Kidney Disease Education Program (NKDEP) which additionally recommends that when the eGFR is used in patients with extremes of body mass index for purposes of drug dosing, the eGFR should be multiplied by the estimated BMI. CHEMISTRY BUN 6 7 - 22 04/[address] [facility] CHEMISTRY Sodium Lvl 139 135 - 145 04/[address] [facility] CHEMISTRY Creatinine 0.7 0.5 - 1.4 04/[address] [facility] CHEMISTRY Potassium 3.8 3.5 - 5.1 04/[address] [facility] CHEMISTRY Calcium Lvl 9.1 8.5 - 10.5 04/[address] [facility] CHEMISTRY Chloride Lvl 104 95 - 109 04/[address] [facility] CHEMISTRY CO2 28 24 - [address] [facility] CHEMISTRY Glucose Lvl 102 70 - 99 04/21 HI <sup>6</sup>I nterpretive [facility] Data: Adult reference range values reflect the clinical guidelines
of the [place] [employer]. IMMUNOLOGY CDC-HIV 1/2 Negative Negative 04/21 NA MH Ab *NA* /2012 [facility] (04/20/2012 21:23:00) CHEMISTRY U Preg Negative Negative 04/21 Normal (04/20/2012 21:19:00) [facility] CHEMISTRY eGFR 111 03/29 NA <sup>1</sup>R esult [facility] Comment: The eGFR is calculated using the CKD-EPI formula. In most young, healthy individuals the eGFR will be >90 mL/min/1.73m2 . The eGFR declines with age. An eGFR of 60-89 may be normal in some populations, particularly the elderly, for whom the CKD-EPI formula has not been extensively validated. Use of the eGFR is not recommended in the following populations:& lt;br/>
I ndividuals with unstable creatinine concentration s, including patients and those with serious co-morbid conditions.<b r/>
Patie nts with extremes in muscle mass or diet.

The data above are obtained from the National Kidney Disease Education Program (NKDEP) which additionally recommends that when the eGFR is used in patients with extremes of body mass index for purposes of drug dosing, the eGFR should be multiplied by the estimated BMI. CHEMISTRY Chloride Lvl 104 95 - 109 03/[address] [facility] CHEMISTRY Potassium 3.6 3.5 - 5.1 03/[address] [facility] CHEMISTRY Calcium Lvl 8.9 8.5 - 10.5 03/[address] [facility] CHEMISTRY Sodium Lvl 138 135 - 145 03/29 [facility] CHEMISTRY Creatinine 0.7 0.5 - 1.4 03/[address] [facility] CHEMISTRY Bili Total 0.3 0.2 - 1.3 02/11 Normal MH /2012 [facility] CHEMISTRY AST 22 0 - 37 02/11 Normal /2012 [facility] CHEMISTRY Alk Phos 95 39 - 136 02/ Normal MH /2012 [facility] CHEMISTRY BUN 5 7 - 22 02/ LOW MH /2012 [facility] CHEMISTRY CO2 26 24 - 32 02/11 Normal MH /2012 [facility] CHEMISTRY ALT 27 0 - 65 02/ Normal /2012 [facility] CHEMISTRY Total 8.1 6.4 - 8.4 02/ Normal MH Protein /2012 [facility] CHEMISTRY Albumin Lvl 3.7 3.5 - 5.0 02/11 Normal MH /2012 [facility] CHEMISTRY Glucose Lvl 100 70 - 99 02/ HI <sup>2</sup>I /2012 nterpretive [facility] Data: Adult reference range values reflect the clinical guidelines
of the [place] [employer]. CHEMISTRY AGAP 11.6 10.0 - 02/ Normal MH 20.0 /2012 [facility] CHEMISTRY A/G Ratio 0.8 0.7 - 1.6 02/ Normal /2012 [facility] CHEMISTRY Globulin 4.4 2.0 - 4.0 02/11 HI /2012 [facility] CHEMISTRY B/C Ratio 7 6 - 25 02/11 Normal MH /2012 [facility] CHEMISTRY Lipase Lvl 133 73 - 393 02/ Normal MH /2012 [facility] CHEMISTRY Amylase Lvl 42 25 - 115 02/11 Normal MH /2012 [facility] HEMATOLOGY Segs-Bands # 8.3 1.5 - 8.1 02/11 HI MH /2012 [facility] HEMATOLOGY Basophils 0.4 0.0 - 1.0 02/11 Normal MH /2012 [facility] HEMATOLOGY Segs 71.4 45.0 - 02/11 Normal MH 75.0 /2013 [facility] HEMATOLOGY Eosinophils 1.3 0.0 - 4.0 02/11 Normal MH /2012 [facility] HEMATOLOGY Monocytes 6.1 2.0 - 12.0 02/11 Normal MH /2013 [facility] HEMATOLOGY Lymphocytes 20.8 20.0 - 02/11 Normal MH 40.0 /2013 [facility] HEMATOLOGY Eosinophils 0.1 0.0 - 0.5 02/11 Normal MH # /2013 [facility] HEMATOLOGY Lymphocytes 2.4 1.0 - 5.5 02/11 Normal MH # /2013 [facility] HEMATOLOGY Monocytes # 0.7 0.0 - 0.8 02/11 Normal MH /2012 [facility] HEMATOLOGY Basophils # 0.1 0.0 - 0.2 02/11 Normal MH /2012 [facility] HEMATOLOGY MPV 11.0 7.4 - 10.4 03/29 HI /2012 [facility] HEMATOLOGY MCHC 33.5 32.0 - 03/29 Normal MH 36.0 /2012 [facility] HEMATOLOGY RDW 12.9 11.5 - 03/29 Normal MH 14.5 /2012 [facility] HEMATOLOGY Platelet 250 133 - 450 03/29 Normal /2012 [facility] HEMATOLOGY WBC 11.6 3.7 - 10.4 03/29 HI /2012 [facility] HEMATOLOGY Hct 36.1 36.0 - 03/29 Normal MH 48.0 /2012 [facility] HEMATOLOGY Hgb 12.1 12.0 - 03/29 Normal MH 16.0 /2012 [facility] HEMATOLOGY MCH 30.6 27.0 - 03/29 Normal MH 31.0 /2012 [facility] HEMATOLOGY RBC 3.96 4.20 - 03/29 LOW MH 5.40 /2012 [facility] HEMATOLOGY MCV 91.2 81.0 - 03/[address] [facility] URINALYSIS UA Color Ltyellow 03/[address] [facility] URINALYSIS UA 0.1 - 1.0 03/29 NA Urobilinogen /2012 [facility] URINALYSIS UA WBC 1 0 - 5 03/[address] [facility] URINALYSIS UA Sq Epi Occasional /LPF Few 03/29 NA *NA* /2012 [facility] (03/29/2012 06:22:00) URINALYSIS UA RBC 2 0 - 2 03/[address] [facility] URINALYSIS UA Protein Negative mg/dL Negative 03/29 Normal (03/29/2012 06:22:00) [facility] URINALYSIS UA Ketones Negative mg/dL Negative 03/29 NA *NA* [facility] (03/29/2012 06:22:00) URINALYSIS UA Glucose Negative mg/dL Negative 03/29 NA *NA* [facility] (03/29/2012 06:22:00) URINALYSIS UA Leuk Est Large Negative 03/29 ABN *ABN* [facility] (03/29/2012 06:22:00) URINALYSIS UA Nitrite Negative Negative 03/29 Normal (03/29/2012 06:22:00) [facility] URINALYSIS UA Blood Small Negative 03/29 ABN *ABN* [facility] (03/29/2012 06:22:00) URINALYSIS UA Bili Negative Negative 03/29 NA MH *NA* [facility] (03/29/2012 06:22:00) URINALYSIS UA Spec Grav 1.012 <=1.030 03/[address] [facility] URINALYSIS UA Turbidity Slight Clear 03/29 ABN MH *ABN* [facility] (03/29/2012 06:22:00) URINALYSIS UA pH 6.0 5.0 - 8.0 03/[address] [facility] CHEMISTRY U Preg Negative Negative 02/23 Normal (02/24/2012 08:11:00) [facility] CHEMISTRY Alk Phos 91 39 - 136 02/[address] [facility] CHEMISTRY Total 8.2 6.4 - 8.4 02/[address] [facility] CHEMISTRY Bili Total 0.4 0.2 - 1.3 02/[address] [facility] CHEMISTRY ALT 34 0 - 65 02/[address] [facility] CHEMISTRY AST 22 0 - [address] [facility] CHEMISTRY eGFR 111 02/23 NA <sup>1</sup>R esult [facility] Comment: The eGFR is calculated using the CKD-EPI formula. In most young, healthy individuals the eGFR will be >90 mL/min/1.73m2 . The eGFR declines with age. An eGFR of 60-89 may be normal in some populations, particularly the elderly, for whom the CKD-EPI formula has not been extensively validated. Use of the eGFR is not recommended in the following populations:& lt;br/>
I ndividuals with unstable creatinine concentration s, including patients and those with serious co-morbid conditions.<b r/>
Patie nts with extremes in muscle mass or diet.

The data above are obtained from the National Kidney Disease Education Program (NKDEP) which additionally recommends that when the eGFR is used in patients with extremes of body mass index for purposes of drug dosing, the eGFR should be multiplied by the estimated BMI. CHEMISTRY CO2 27 24 - 32 02/[address] [facility] CHEMISTRY Albumin Lvl 3.8 3.5 - 5.0 02/[address] [facility] CHEMISTRY Calcium Lvl 9.1 8.5 - 10.5 02/[address] [facility] CHEMISTRY BUN 7 7 - 22 02/23 [facility] CHEMISTRY Creatinine 0.7 0.5 - 1.4 / Normal MH Lvl /2012 [facility] CHEMISTRY Glucose Lvl 94 70 - 99 02/23 Normal <sup>2</sup>I /[address] [facility] Data: Adult reference range values reflect the clinical guidelines
of the [place] [employer]. CHEMISTRY Chloride Lvl 104 95 - 109 / Normal /2012 [facility] CHEMISTRY Potassium 4.0 3.5 - 5.1 02/23 Normal MH Lvl /2012 [facility] CHEMISTRY Sodium Lvl 139 135 - 145 / Normal /2012 [facility] CHEMISTRY A/G Ratio 0.9 0.7 - 1.6 / Normal /2012 [facility] CHEMISTRY Globulin 4.4 2.0 - 4.0 / HI /2012 [facility] CHEMISTRY AGAP 12.0 10.0 - 02/23 Normal MH 20.0 /2012 [facility] CHEMISTRY B/C Ratio 10 6 - 25 / Normal /2012 [facility] CHEMISTRY Lipase Lvl 74 73 - 393 / Normal /2012 [facility] HEMATOLOGY Eosinophils 2.0 0.0 - 4.0 / Normal /2012 [facility] HEMATOLOGY Monocytes 7.1 2.0 - 12.0 / Normal /2012 [facility] HEMATOLOGY Basophils 0.4 0.0 - 1.0 / Normal /2012 [facility] HEMATOLOGY Segs-Bands # 6.7 1.5 - 8.1 / Normal /2012 [facility] HEMATOLOGY Basophils # 0.0 0.0 - 0.2 / Normal /2012 [facility] HEMATOLOGY Monocytes # 0.7 0.0 - 0.8 / Normal /2012 [facility] HEMATOLOGY Eosinophils 0.2 0.0 - 0.5 /08 Normal MH # /2012 [facility] HEMATOLOGY Lymphocytes 2.8 1.0 - 5.5 /08 Normal MH # /2012 [facility] HEMATOLOGY Segs 63.5 45.0 - /08 Normal MH 75.0 /2012 [facility] HEMATOLOGY Lymphocytes 27.0 20.0 - / Normal MH 40.0 /2012 [facility] HEMATOLOGY MPV 10.3 7.4 - 10.4 / Normal /2012 [facility] HEMATOLOGY RDW 12.5 11.5 - 02/23 Normal MH 14.5 /2012 [facility] HEMATOLOGY MCHC 33.6 32.0 - 02/23 Normal MH 36.0 /2012 [facility] HEMATOLOGY Platelet 264 133 - 450 02/[address] [facility] HEMATOLOGY MCV 91.8 81.0 - 02/23 Normal MH 99.0 /2012 [facility] HEMATOLOGY MCH 30.9 27.0 - 02/23 Normal 31.0 /2012 [facility] HEMATOLOGY Hgb 13.4 12.0 - 02/[address] [facility] HEMATOLOGY Hct 39.7 36.0 - 02/23 Normal 48.0 /2012 [facility] HEMATOLOGY WBC 10.6 3.7 - 10.4 02/[address] [facility] HEMATOLOGY RBC 4.32 4.20 - 02/23 Normal MH 5.40 /2012 [facility] URINALYSIS UA Color Ltyellow 02/[address] [facility] URINALYSIS UA 0.1 - 1.0 02/23 NA Urobilino /2012 [facility] URINALYSIS UA Blood Small Negative 02/23 ABN *ABN* [facility] (02/24/2012 08:11:00) URINALYSIS UA RBC 8 0 - 2 02/[address] [facility] URINALYSIS UA Bacteria Few /HPF None Seen 02/23 NA *NA* [facility] (02/24/2012 08:11:00) URINALYSIS UA Sq Epi Many /LPF Few 02/23 ABN *ABN* (02/24/2012 08:11:00) URINALYSIS UA WBC 7 0 - 5 02/[address] [facility] URINALYSIS UA Leuk Est Large Negative 02/23 ABN *ABN* [facility] (02/24/2012 08:11:00) URINALYSIS UA Nitrite Negative Negative 02/23 Normal (02/24/2012 08:11:00) [facility] URINALYSIS UA Ketones Negative mg/dL Negative 02/23 NA *NA* [facility] (02/24/2012 08:11:00) URINALYSIS UA Glucose Negative mg/dL Negative 02/23 NA *NA* (02/24/2012 08:11:00) URINALYSIS UA Protein Negative mg/dL Negative 02/23 Normal (02/24/2012 08:11:00) [facility] URINALYSIS UA Bili Negative Negative 02/23 NA *NA* [facility] (02/24/2012 08:11:00) URINALYSIS UA pH 8.0 5.0 - 8.0 02/[address] [facility] URINALYSIS UA Spec Grav 1.001 <=1.030 02/[address] [facility] URINALYSIS UA Turbidity Slight Clear 02/23 ABN MH *ABN* /2012 [facility] (02/24/2012 08:11:00) Microbiolo Culture: 08/[address] [facility] CHEMISTRY AGAP 13.4 10.0 - 08/[address] [facility] CHEMISTRY Globulin 4.4 2.0 - 4.0 08/[address] [facility] CHEMISTRY B/C Ratio 6 6 - 25 08/[address] [facility] CHEMISTRY A/G Ratio 0.9 0.7 - 1.6 08/[address] [facility] CHEMISTRY Chloride Lvl 103 95 - 109 08/[address] [facility] CHEMISTRY Potassium 3.4 3.5 - 5.1 08/[address] [facility] CHEMISTRY Sodium Lvl 139 135 - 145 08/[address] [facility] CHEMISTRY Calcium Lvl 9.1 8.5 - 10.5 08/[address] [facility] CHEMISTRY Albumin Lvl 3.8 3.5 - 5.0 08/07 Normal [facility] CHEMISTRY Total 8.2 6.4 - 8.4 08/[address] [facility] CHEMISTRY AST 17 0 - 37 08/[address] [facility] CHEMISTRY Alk Phos 89 39 - 136 08/[address] [facility] CHEMISTRY Bili Total 0.3 0.2 - 1.3 08/[address] [facility] CHEMISTRY ALT 34 0 - 65 08/[address] [facility] CHEMISTRY Glucose Lvl 112 70 - 99 08/07 HI <sup>1</sup>I nterpretive [facility] Data: Adult reference range values reflect the clinical guidelines of the [place] [employer]. CHEMISTRY Creatinine 0.8 0.5 - 1.4 08/[address] [facility] CHEMISTRY BUN 5 7 - 22 08/07 LOW [facility] CHEMISTRY CO2 26 24 - 32 08/[address] [facility] HEMATOLOGY Basophils # 0.0 0.0 - 0.2 08/[address] [facility] HEMATOLOGY Hypochrom Slight None Seen 08/07 Normal (08/08/2011 15:30:00) /2011 [facility] HEMATOLOGY Eosinophils 0.2 0.0 - 0.5 / Normal MH # /2012 [facility] HEMATOLOGY Lymphocytes 34.5 20.0 - 08/07 Normal MH 40.0 /2011 [facility] HEMATOLOGY Monocytes 5.4 2.0 - 12.0 08/07 Normal MH /2011 [facility] HEMATOLOGY Eosinophils 1.7 0.0 - 4.0 / Normal MH /2011 [facility] HEMATOLOGY Plt Morph Normal 08/07 Normal (08/08/2011 15:30:00) /2011 [facility] HEMATOLOGY Segs 58.0 45.0 - 08/07 Normal MH 75.0 /2011 [facility] HEMATOLOGY Lymphocytes 3.4 1.0 - 5.5 08/07 Normal MH # /2011 [facility] HEMATOLOGY Monocytes # 0.5 0.0 - 0.8 08/07 Normal /2011 [facility] HEMATOLOGY Basophils 0.4 0.0 - 1.0 08/07 Normal /2011 [facility] HEMATOLOGY Segs-Bands # 5.7 1.5 - 8.1 08/07 Normal /2011 [facility] HEMATOLOGY Hct 37.9 36.0 - 08/07 Normal MH 48.0 /2011 [facility] HEMATOLOGY MCH 31.2 27.0 - 08/07 HI MH 31.0 /2011 [facility] HEMATOLOGY MCHC 34.2 32.0 - 08/07 Normal MH 36.0 /2011 [facility] HEMATOLOGY MCV 91.1 81.0 - 08/07 Normal MH 99.0 /2011 [facility] HEMATOLOGY WBC 9.9 3.7 - 10.4 08/07 Normal /2011 [facility] HEMATOLOGY RDW 13.4 11.5 - 08/07 Normal MH 14.5 /2011 [facility] HEMATOLOGY Platelet 311 133 - 450 08/[address] [facility] HEMATOLOGY MPV 10.1 7.4 - 10.4 08/[address] [facility] HEMATOLOGY RBC 4.16 4.20 - 08/07 LOW MH 5.40 /2011 [facility] HEMATOLOGY Hgb 13.0 12.0 - 08/[address] [facility] URINALYSIS UA 0.1 - 1.0 08/07 [facility] Urobilinogen /2011 [facility] URINALYSIS UA Turbidity Marked Clear 08/07 ABN MH *ABN* /2011 [facility] (08/08/2011 15:30:00) URINALYSIS UA Color Yellow Yellow 08/07 NA *NA* /2011 [facility] (08/08/2011 15:30:00) URINALYSIS UA Spec Grav 1.016 <=1.030 08/[address] [facility] URINALYSIS UA pH 6.0 5.0 - 8.0 08/[address] [facility] URINALYSIS UA Bacteria Occasional /HPF None Seen 08/07 NA *NA* [facility] (08/08/2011 15:30:00) URINALYSIS UA Mucus Moderate /LPF None Seen 08/07 [facility] *ABN* [facility] (08/08/2011 15:30:00) URINALYSIS UA Leuk Est Trace Negative 08/07 ABN *ABN* [facility] (08/08/2011 15:30:00) URINALYSIS UA Sq Epi Many /LPF Few 08/07 ABN *ABN* [facility] (08/08/2011 15:30:00) URINALYSIS UA WBC 2 0 - 5 08/[address] [facility] URINALYSIS UA RBC 3 0 - 2 08/[address] [facility] URINALYSIS UA Ketones Negative mg/dL Negative 08/07 NA *NA* [facility] (08/08/2011 15:30:00) URINALYSIS UA Protein Negative mg/dL Negative 08/07 Normal (08/08/2011 15:30:00) [facility] URINALYSIS UA Glucose Negative mg/dL Negative 08/07 [facility] *NA [facility] (08/08/2011 15:30:00) URINALYSIS UA Blood Small Negative 08/07 [facility] *ABN [facility] (08/08/2011 15:30:00) URINALYSIS UA Nitrite Negative Negative 08/07 Normal (08/08/2011 15:30:00) [facility] URINALYSIS UA Bili Negative Negative 08/07 [facility] *NA* [facility] (08/08/2011 15:30:00) Pathology Reports No Data Provided for This Section Diagnostic Reports Report Value Date Source Spine thoracic 3 views PROCEDURE INFORMATION: 05/15/2019 [facility] DX Exam: XR Thoracic Spine, 3 Views Exam date and time: 05/15/2019 12:22 PM Age: 43 years old Clinical indication: Pain; Additional in fo: Pain of unknown origin/right upper quadrant / R CVA abdominal pain, negative biliar y, urinary tract work-up. Superficial tenderness. Question referred from t horacic spine TECHNIQUE: Imaging protocol: XR of the thoracic spine, 3 vi ews. Views: AP Lateral Swimmer's COMPARISON: No relevant prior studies available. FINDINGS: Vertebrae: There is normal alignment of the thor acic spine. There are no fractures or subluxations. The visualize d posterior elements are unremarkable. The costovertebral junctions are unremarkable. Soft tissues: Paraspinal soft tissues are unrema rkable. Notes: If there is further concern or neurologic al abnormalities on clinical exam, recommend CT or MRI of the thoracic spine for complete assessment. IMPRESSION: No fracture or subluxation. Alex Snider MD On 05/15/2019 12:36:28; VR- [id number] Chest 1view DX PROCEDURE INFORMATION: 05/15/2019 [facility] Exam: XR Chest, 1 View Exam date and time: 05/15/2019 9:50 AM Age: 43 years old Clinical indication: Chest pain; Additional info : /nonspecific pain TECHNIQUE: Imaging protocol: XR of the chest Views: 1 view. COMPARISON: CHEST 1VIEW DX 09/26/2016 7:00 PM FINDINGS: Lungs: Mild decreased lung volumes. No consolida tion. Pleural space: No pneumothorax. Heart/Mediastinum: No cardiomegaly. Bones/joints: No acute osseous abnormality. IMPRESSION: No acute cardiopulmonary findings. Edwin Romero MD On 05/15/2019 10:03:04; VR-GH [id number] Gallbladder scan HIDA PROCEDURE INFORMATION: 05/14/2019 [facility] wo meds NM Exam: NM Hepatobiliary Including Gallbladder Whe n Present Exam date and time: 05/14/2019 4:25 PM Age: 43 years old Clinical indication: Ruq pain; Prior winnie jimenez; Surgery date: 6+ months; Surgery type: Lap srinivasan; Additional info: Abdominal pain , acute/right upper quadrant/cva region pain with negative imaging o utside ct/ultrasound with dilated bile duct. Mrcp negative for choledochol ithiasis. Lfts elevated. Question delayed bile duct emptying () TECHNIQUE: Imaging protocol: Hepatobiliary system imaging i ncluding the gallbladder when present. Projections: Frontal abdomen. Radiopharmaceutical: The 6.3 mCi technetium Tc 9 9 M mebrofenin, IV. Time of imaging post radiopharmaceutical adminis tration: 60 minutes following radiopharmaceutical. COMPARISON: ABDOMEN WO CONTRAST MRI 05/13/2019 11:10 PM FINDINGS: Liver: Unremarkable. Homogeneous radiotracer upt raghavendra. Gallbladder: Surgically absent. No evidence of b ile leak. Bile Ducts: Unremarkable. Cl early visualized. Normal hepatic to biliary transit time. Stomach and bowel: Unremarkable. No evidence of significant enterogastric reflux. Radiotracer activity is seen in the smal l bowel. Normal biliary to bowel transit time. IMPRESSION: Normal hepatobiliary exam post cholecystectomy. Nelly Torres MD On 05/14/2019 18:57:00; VR- [id number] Abdomen wo contrast PROCEDURE INFORMATION: 05/13/2019 [facility] MRI Exam: MR Abdomen Without Contrast Exam date and time: 05/13/2019 11:10 PM Age: 43 years old Clinical indication: Abdominal pain; Flank; Righ t upper quadrant (ruq); Additional info: /eval for choledocholithiasis TECHNIQUE: Imaging protocol: MRCP 3D rendering: MIP and/or 3D reconstructed images were created by the technologist. COMPARISON: ABDOMEN WO CONTRAST MRI 01/06/2013 5:22 PM FINDINGS: The gallbladder has been removed consistent chol ecystectomy. There is a short cystic duct remnant measuring 4 mm in diameter, without filling defects. There is mild intra and extrahepatic biliary dil atation, slightly increased compared to the previous MRC P on 01/06/2013. The common hepatic duct measures 9 mm in diameter. The common bile duct measures 9 mm in diameter. No filling defects or strictures are demonstrated. The pancreatic duct is normal caliber without be ading or filling defects. The liver, spleen, pancreas, kidneys and adrenal gland show no significant abnormalities. IMPRESSION: 1. Post cholecystectomy. 2. Mild intra and extrahepat ic biliary dilatation, likely physiologic. There is no evidence of choledocholithiasis or strictures . 3. Normal pancreatic duct. Aravind Parks MD On 05/14/2019 08:11:12; [id number] Abdomen/Pelvis w IV Clinical Indication: - left sided abd pain 07/21/2018 [facility] contrast CT Comparison: Comparison is ma de to abdomen/pelvis CT examination dated 09/04/2016. TECHNIQUE: Helical imaging w as performed after injection of IV contrast, from the diaphragm through the symphysis with multiplanar reformations obtained. CT imaging was performed with exposure control parameters to reduce radiation dose. IV CONTRAST: 100 mL of Omnipaque 300 DLP: 727.88 mGy-cm FINDINGS: The visualized portion of th e left lung base is grossly clear. Stable 2 mm right lower lobe pulmonary nodule on axial image #11 of series 2. A similar finding was demonstrated on prior abdomen/pelvis CT examination dated 09/04/2016. No free intraperitoneal air. The liver appears enlarged, measuring up to 19.67 m in maximal craniocaudal dimension. The liver appears normal in contour. There is diffusely decreased hepatic attenuation. The spleen, and adrenal gla nds are within normal limits for appearance. Surgical clips are in place at the gallbladder fossa and the gallbladder surgically absent. There is diffusely decreased attenuat ion throughout the pancreas, suggesting fatty infiltration. No pancreatic ductal dilation or peripancreatic fat stranding identified. The kidneys enhance symmetri berlin. No hydronephrosis or hydroureter. The bladder is mildly distended with fluid without focal wall thickening. The uterus is surgically absent. The bilateral adnexal regions are within normal limits for appearance. No dilated loops of bowel. No evidence of bowel obstruction. Normal appendix. The abdominal aorta is kev l in course and caliber without focal aneurysmal dilation. Mild atherosclerotic calcifications present at the abdominal aorta. The lumbosacral spine appears intact. IMPRESSION: 1. Hepatomegaly with fatty infiltration of the liver. 2. No bowel obstruction. Normal appendix. SL: [id number] Chest 1view DX EXAM: XR CHEST 1 VIEW 09/26/2016 [facility] DATE: 09/26/2016 6:55 PM CDT INDICATION: Syncope. COMPARISON: 04/26/2012. TECHNIQUE: A single AP view of the chest was obt ained. FINDINGS: No focal consolidation or pn eumothorax is identified. The cardiomediastinal silhouette is within normal limits. The costophrenic recesses are sharp and without effusion. No acute osseous abnormality is noted. IMPRESSION: No acute cardiopulmonary abnormality. SL: [id number] Brain wo contrast CT EXAM: CT BRAIN WITHOUT CONTRAST 09/26/2016 [facility] DATE: 09/26/2016 4:24 PM CDT INDICATION: Dizziness. Head injury. COMPARISON: 01/20/2011. TECHNIQUE: CT images were ob tained from the foramen magnum to the vertex without intravenous contrast on a multidetector CT. Coronal and sagittal reconstructions were also provided for review. CT radiation dose DLP: 879.56 mGy-cm FINDINGS: No acute intracranial hemorr donavon, midline shift, or mass effect is identified. The broderick-white matter differentiation is preserved. The ventricles and sulci are within normal limits, without evidence for hydrocephalus. The orbits, paranasal sinuse s, and mastoid air cells are unremarkable. The calvarium and skull base are intact. IMPRESSION: No acute intracranial abnormality. SL: [id number] Abdomen RUQ US Patient Name: GORDON TUTTLE 09/05/2016 [facility] : 1975; Age: 40 years y/o Female MR: [id number] Study: Abdomen RUQ US 09/05/2016 3:33 AM CDT Ordering Physician: Clinical Indication: - pancreatitis; Comparison: CT abdomen pelvis 09/04/2016 Gallbladder: Absent. Liver: Mild hepatic steatosis. No focal lesion o r duct dilatation. Common bile duct 2 mm, normal. Pancreas: Diffusely hyperech oic parenchyma compatible with fatty infiltration. No mass, peripancreatic fluid or fluid collection seen. Right kidney: No hydronephrosis. IMPRESSION: No acute sonographic finding. Prior cholecystectomy. No biliary ductal dilatat ion. Fatty infiltration of the pancreas and the liver . SL: [id number] Renal Stone CT CT SCAN OF THE ABDOMEN [<AND PELVIS>] WI THOUT CONTRAST. 09/04/2016 [facility] HX: Clinical Indication: - left flank pain, hx stones, DLP- 515.55mgy-cm; . Comparison: CT abdomen pelvis of 08/16/2016. Technique: Helical CT images were obtained from the domes the diaphragms to the symphysis pubis without the administration of oral or intravenous contrast. The lack of IV contrast lowers the sensitivity for diagnostic evaluation. ABDOMEN AND PELVIS: Stable small 5.0 mm pulmonary nodule in the peripheral right lung base. The heart is normal in size. Postoperative cholecystectomy. Diffuse fatty liver infiltration. The unenhanced spleen, diffusely fatty panc reas, and adrenals are normal in appearance. Grossly normal appendix. No renal or ureteral calculi or hydronephrosis. No significant perinephric stranding detected. Abundance of stool within the colon. Postoperative hysterectomy. The bladder is nondistended. IMPRESSION: 1. No definite obstructive uropathy. 2. Postoperative cholecystectomy. 3. Diffuse fatty liver infiltration. 4. Diffusely fatty pancreas may reflect cystic fibrosis or sequela of chronic pancreatitis. 5. Stable small 5.0 mm pulmonary nodule in the p eripheral right lung base. Solitary Pure GGNs: < 5mm: No CT follow-up needed > 5mm: Initial f/u CT at 3 m onths to confirm persistence, then anuual surveillance CT for a minimum of 3 years Multiple Pure GGNs: Pure GGNs < 5mm: obtain f/u CT at 2 and 4 years Pure GGNs > 5mm without a dominant lesion(s): Initial f/u CT at 3 months t o confirm persistence, and then annual surveillance CT for a minimum of 3 years. Solitary part-solid nodules: Initial f/u CT at 3 mo to confirm persistence. If persistent and solid comp onent < 5mm: yearly surveillance CT for minimum of 3 years If persistent and solid component > 5mm: biopsy or surgical resection (Consider PET/CT for part solid nodules >10mm) Multiple subsolid nodules: Dominant nodule(s) with part-solid or solid comp onent Initial f/u at 3 mo to confirm persistence. If persistent, biopsy or winnie gical resection is recommended, especially for lesions with >5mm solid component. Reference: Recommendations for Manageme nt of Subsolid Pulmonary Nodules Detected at CT: A Statement from the Fleischner Society. Radiology 2013; 266: 304-317 SL: [id number] Renal Stone CT CT RENAL STONE WITHOUT CONTRAST 08/16/2016 [facility] INDICATION: Evaluate for benson al stone, Abdominal pain, acute - renal stone protocol, Dlp-499.45mgy-cm COMPARISON: CT abdomen/pelvis 06/25/2016 DISCUSSION: URINARY TRACT: No urinary tract calculi are identified. There is no hydronephrosis. The kidneys and bladder are grossly normal in morphology. ABDOMEN/PELVIS: There is a stable 5 mm nodul e of the right lung base. Cholecystectomy clips are in place. The liver is mildly enlarged, measuring approximately 18 cm in sagittal length. Similar to the comparison study, there is generalized fatty atrophy of the pancreas. No acute pancreatic abnormalities are visualized. The spleen, and adrenal glands appear normal. The stomach and bowel loops, including the appendix, are unremarkable. No free fl uid or abnormal fluid collections are seen. The abdominal aorta is normal in caliber. The uterus and ovaries are not seen, presumed absent. BONES: No acute bony abnormalities are seen. IMPRESSION: 1. No acute abdominal or pel enmanuel abnormalities are visualized. There is no evidence of urolithiasis. 2. A stable 5 mm nodule of t he right lung base. Recommend follow-up as indicated below. FLEISCHNER SOCIET[employer] RECOMMEND ATIONS FOR INCIDENTAL PULMONARY NODULES (LESS THAN 8 MM) Low risk patient Less than or equal to 4 mm: No follow-up. 4-6 mm: Follow-up CT at 12 months; if unchanged, no further follow-up. 6-8 mm: Initial follow-up CT at 6-12 mon ths then at 18-24 months if no change. Greater than 8 mm: Follow-up CT at around 3, 9, and 24 months, dynamic contrast-enhanced CT, PET, and/or biopsy. High risk patient Less than or equal to 4 mm: Follow-up CT at 12 months; if unchanged, no further follow-up. 4-6 mm: Initial follow-up CT at 6-12 mon ths then at 18-24 months if no change. 6-8 mm: Initial follow-up CT at 3-6 months then at 9-12 months and 24 months if no change. Greater than 8 mm: Same as low-risk patient. Notes: 1. Newly detected indeterminate nodule in person s 35 years of age or older. 2. Low risk patient: Minimal absent history of smoking and of other known risk factors. 3. High risk patient: History of smoking or othe r known risk factors 4. Nonsolid groundglass or p artially solid nodules may require longer follow-up to exclude indolent adenocarcinoma. 5. The risk of malignancy in nodules less than or equal to 4 mm in a low risk patient is less than 1% and is substantially less than that in a baseline CT scan of an asymptomatic smoker. SL:16 ED Abdomen/Pelvis IV CT ABDOMEN AND PELVIS WITH CONTRAST 017 [facility] contrast only CT INDICATION: Epigastric pain, Abdominal pain, acute - Epigastric pain; h/o pancreatitis, h/o gastritis cre:.78 gfr:95 cont:100cc/ml omni 300 ctdlp:1625.92 mgy-cm COMPARISON: CT abdomen/pelvis 12/18/2015 DISCUSSION: ABDOMEN: There is no consolidation of the visible lung bases. Cholecystectomy clips are in place. There is generalized fatty infiltration of the liver. There is generalized fatty infiltration of the pancreas. Th ere is no appreciable peripa ncreatic edema. The spleen, adrenal glands, and kidneys appear normal. The stomach and bowel loops, including the appendix, are unremarkable. No free fluid or abnormal fluid collections are seen. No abd ominal lymphadenopathy is identified. The abdominal aorta is patent and normal in caliber. PELVIS: The bladder is unremarkable. The uterus and ovaries are not seen, presumed absent. No pelvic mass or lymphadenopathy are identified. BONES: No acute bony abnormalities are seen. IMPRESSION: No acute abdominal or pelvic abnormalities are visualized. There is no evidence of acute pancreatitis. SL:16 ED Abdomen/Pelvis IV ED Abdomen/Pelvis IV contrast only CT 12/17 [facility] contrast only CT TECHNIQUE: Contiguous transa xial images of the abdomen and pelvis were performed from the lung bases to the superior pubic rami with IV contrast. CLINICAL HX: Abdominal pain, acute; COMPARISON: 08/13/2015 CT ABDOMEN: Lower Chest: The lung bases are clear. GI Tract: Bowel gas pattern is unremarkable. Appendix demonstrates normal morphology. There is no evidence for free fluid or free air in the abdomen. Tract and retroperitoneum : The kidneys demonstrate normal morphology and symmetric excretion. No significant retroperitoneal lymphadenopathy is noted. Abdominal viscera: Fatty inf iltration of liver and pancreas. Spleen and both adrenals are unremarkable in appearance. Status post cholecystectomy. Vasculature: Aorta demonstrates normal morpholo gy. Bone and Soft tissues: No significant bony a bnormality is noted. CT PELVIS: The bladder demonstrates nor mal morphology. Uterus is not visualized suggesting prior hysterectomy. Small low-density focus in the region of left adnexa likely represents an ovarian cyst. No free fluid is present in the pelvis. IMPRESSION: Fatty infiltration of liver and pancreas. Status post cholecystectomy. No significant interval change from previous study of 08/13/2015. SL: [id number] Pelvis w Transvag and EXAM: US PELVIS TRANSABDOMINAL 12/18/2015 [facility] Pelvis Doppler US EXAM: US PELVIS TRANSVAGINAL DATE: 12/18/2015 5:51 PM CDT INDICATION: Abdominal pain, acute COMPARISON: None. TECHNIQUE: Multiplanar broderick scale and color Doppler ultrasound of the pelvis were obtained transabdominally through a distended urinary bladder followed by transvaginal examination postvoid. FINDINGS: Uterus: Hysterectomy. Right ovary: Size: 2.0 x 1.1 x 1.1 cm Cysts: A follicular cyst measures 1.4 x 1.1 x 1. 3 cm. Masses: None. Left ovary: Size: 2.9 x 2.0 x 2.3 cm Cysts: A follicular cyst measures 1.8 x 1.4 x 1. 6 cm. Masses: None. Free fluid: None. IMPRESSION: 1. Unremarkable sonographic examination of the ovaries with small bilateral follicular cysts visualized. 2. Hysterectomy. SL: [id number] Abdomen acute series w Abdomen acute series w chest 1 view DX [facility] chest 1 view DX CLINICAL INDICATION: Abdominal pain, acute COMPARISON: 01/20/2013 FINDINGS: Bowel gas pattern is unremarkable. No tract calculi are evid ent. Pelvic phleboliths. Surgical clips in the right upper abdomen suggest previous cholecystectomy.. No free air is noted underneath the hemidiaphrag ms. The one view chest reveals clear lungs.. Cardiac silhouette size is within normal limits. No significant bony abnormality is noted. IMPRESSION: No acute abnormality noted. SL: [id number] ED Abdomen/Pelvis IV PROCEDURE: CT ABDOMEN AND PELVIS WITH CONTR AST. 08/13/2015 [facility] contrast only CT INDICATION: Abdominal pain, acute COMPARISON: None available. TECHNIQUE: CT of the abdomen and pelvis with intravenous contrast. Multiplanar reformats. IV CONTRAST: 100 cc Omnipaque 300 GI CONTRAST: none COMMENTS: The lung bases are clear. The spleen, adrenals, kidney s, liver are unremarkable. The gallbladder surgically absent. Common bile duct measures up to 11 mm. The proximal pancreas demonstrates low attenuation without ductal dilatat ion. Overall the appearance of the proximal pancreas has not significantly changed since 01/20/2011. Questionable bladder wall thickening. Colonic diverticuli without definite evidence of diverticulitis. Stomach is incompletely distended thereby limiting its evaluation. Appendix unremarkable. No bowel obstruction. No free air. Mild atherosclerotic changes of the vasculature. Main portal vein grossly patent. No acute or suspicious osseous abnormalities. IMPRESSION: 1. No definite acute abdominopelvic abnormality . 2. Nonspecific low-attenuat ion changes of the proximal pancreas not significantly changed since 01/20/2011 and could be secondary to fatty infiltration. 3. Colonic diverticuli without diverticulitis. 4. Prominent common bile du ct in a postcholecystectomy state likely related to increased biliary capacitance but can be correlated with LFTs. 5. Questionable bladder wall thickening can be correlated with urinalysis. SL: [id number] ED Abdomen/Pelvis IV Study: ED Abdomen/Pelvis IV contrast only C T 07/28/2015 [facility] contrast only CT Clinical Indication: Left-sided abdominal pain Comparison: CT abdomen and pelvis from 3 TECHNIQUE: Multiple axial CT images of the abdomen and pelvis were acquired following the administration of intravenous contrast. Sagittal and coronal reformatted images were performed. CT Radiation Dose DLP 1431.66 mGy-cm FINDINGS: The visualized lung bases are clear bi laterally. Patient is status post srinivasan cystectomy. Liver, pancreas, spleen, adrenal glands, and kidneys are unremarkable. No intrahepatic or extrahepatic biliary duct dilatation is seen. Urinary bladder is well-d istended. Patient is status post hysterectomy. Visualized ovaries are unremarkable. The visualized hollow viscera and appendix are normal in appearance. No intraperitoneal free air, free fluid, or patho logic adenopathy is seen. Th e superficial soft tissues are unremarkable. No suspicious osseous lesions are seen. IMPRESSION: 1. No acute intra-abdominal/pelvic abnormality. SL: [id number] Abdomen/Pelvis w IV CT scan of the abdomen and pelvis with contr ast: 01/20/2013 [facility] contrast CT Exam reason: Abdominal pain, acute See Clinic Indication Multiple computerized axial tomograms of the abdomen and pelvis were obtained after administration of oral and intravenous contrast. A 4.5 mm noncalcified pulmon gabrielle nodule is noted at the lateral basal right lower lobe. This is unchanged from the previous exam, 01/20/2011. The heart is mildly enlarged. Diffuse fatty infiltration of t he liver is noted. Surgical clips are noted at the gallbladder fossa status post cholecystectomy. Compensatory dilatation of the biliary tree status post cholecystectomy is noted. Correlation with liver function tests to exclude a n obstructive pattern is suggested. Liver, spleen, pancreas, kidneys and adrenal glands have an otherwise normal CT appearance. There is no adenopathy, abdominal mass or free fluid noted. No pneumoperitoneum is noted. The uterus is surgically abs ent. Venous vascular calcifications are noted at the pelvis. The appendix is normal. A 1.3 x 2.1 cm left ovarian cyst is noted. The urinary bladder is unremarkable. No pelvic adenopathy, mass or free fluid is noted. IMPRESSION: 1. There is no acute abnormality noted at the ab domen or pelvis. 2. Status post cholecystectomy and hysterectomy. 3. Diffuse fatty infiltration of the liver. 4. Left ovarian cyst. SL:12 Abdomen acute series Abdomen series with one view chest, 3 views : 01/20/2013 [facility] comp w chest 1 view FINDINGS: The bowel gas felipe renee is nonobstructive. No abnormal calcifications or masses are visualized. The visualized bony structures are intact. Surgical clips in the right upper abdomen indicate a prior cholecystectomy. The one view chest reveals c lear lungs and the cardiac silhouette size is within normal limits. No free air is noted underneath the hemidiaphragms. IMPRESSION: No significant abnormality is noted on the abdo men series. SL:13 Abdomen wo contrast PROCEDURE: Abdomen without contrast MRI [facility] MRI CLINICAL INFORMATION Abdominal pain, acute COMPARISON: CAT scan 011. April 16, 2011. 02/24/2012. 03/29/2012. 12/15/2012. FINDINGS: The gallbladder is surgicall y absent. There is no intrahepatic ductal dilation. The common hepatic duct measures 6 mm. The common bile duct measures up to 6 mm. There is tapering at its insertion into t he duodenum. No intraductal filling defect is id entified. The right kidney measures 10 .2 cm CC. The left kidney measures 11.1 cm CC. There is no hydronephrosis. The spleen is visualized. Both adrenal glands have normal morphology. The visualized small bowel ca liber is normal. The aortic caliber measures 2.2 cm. IMPRESSION: 1. 6 mm common hepatic and c ommon bile duct without a definite intraductal filling defect. SL: 13 Abdomen RUQ US 01/04/2013 [facility] EXAM: Right upper quadrant ultrasound HISTORY: Abdominal pain. TECHNIQUE: Broderick scale static images of the right upper quadrant performed FINDINGS: 1. Cholecystectomy. Prominen t common duct may be related to cholecystectomy. Correlate with LFT. 2. Fatty liver. 3. The pancreas is incompletely visualized due t o overlying bowel gas. 4. Right kidney measures 12 cm length without hy dronephrosis. SL: [address] RENAL STONE PROTOCOL: 12/15/2012 [facility] HISTORY: Flank Pain COMPARISON: NONE TECHNIQUE: Multiple contiguo us [address] images were obtained from a level just above the kidneys through the pelvis ABDOMEN: The liver is diffus rosita fatty. The patient has had a previous cholecystectomy. There is no evidence of nephrolithiasis or hydronephrosis. The bowel is normal in course and caliber. No retroperit judd adenopathy is noted. T he adrenal glands and pancreas are unremarkable. The spleen is not enlarged. ABDOMEN IMPRESSION: Diffusely fatty liver. PELVIS: Views of pelvis reve al no unusual calcification. The bladder is minimally distended and grossly normal. No mass, hernia or free fluid is noted. PELVIS IMPRESSION: Negative CT pelvis. SL: 12 Extremity lower venous EXAM: Left lower extremity v enous Doppler ultrasound and SPECTRAL analysis. 08/18/2012 [facility] Doppler Unilat US CLINICAL INFORMATION: Pain. Leg pain. TECHNIQUE: Duplex and color Doppler evaluation of the deep venous system of left leg. FINDINGS: The left common femoral, fem oral, popliteal and tibial veins demonstrate normal color-flow, compressibility and augmentation. The left greater saphenous vein is also patent. IMPRESSION: No sonographic evidence of deep venous thrombosi s in the left leg. SL: 14 Consultation Notes No Data Provided for This Section Discharge Summaries No Data Provided for This Section History and Physicals No Data Provided for This Section Vital Signs Vital Sign Value Date Comments Source Systolic (mm Hg) 127 05/16/2019 [facility] Diastolic (mm Hg) 75 05/16/[address] [facility] [address] Temperature Oral (F) 98.1 F [facility]16[facility] 84 05/16/2019 [facility] Temperature Oral (F) 98.1 F 05/16/2019 [facility] Heart Rate 94 05/16/2019 [facility] Systolic (mm Hg) 141 05/16/2019 [facility] Diastolic (mm Hg) 78 05/16/[address] [facility] [address] Systolic (mm Hg) 142 05/16/2019 [facility] Diastolic (mm Hg) 79 05/16/[address] [facility] [address] Temperature Oral (F) 98.1 F 05/16/2019 [facility] Heart Rate 79 05/16/2019 [facility] Rate 16 05/15/2019 [facility] Resp[facility] Rate 16 05/15/2019 [facility] Respitory Rate 16 05/15/2019 [facility] Height 165.1 cm 05/14/2019 [facility] BMI Calculated 29.18 05/14/2019 [facility] Weight 79.545 05/14/2019 [facility] Height 165.1 cm 05/14/2019 [facility] Weight 79.545 05/14/2019 [facility] BMI Calculated 29.18 05/14/2019 [facility] Systolic (mm Hg) 122 07/21/2018 [facility] [place] Diastolic (mm Hg) 86 07/21/2018 [facility] [place] [facility] Respitory Rate 18 07/21/2018 [facility] [place] Heart Rate 84 07/21/2018 [facility] [place] Temperature Oral (F) 98 F 07/21/2018 [facility] [place] Weight 81.818 07/21/2018 [place] BMI Calculated 30.02 07/21/2018 [facility] [place] Systolic (mm Hg) 125 07/21/2018 [facility] [place] Diastolic (mm Hg) 89 07/21/2018 [facility] [place] Heart Rate 89 07/21/2018 [facility] [place] Respitory Rate 18 07/21/2018 [facility] [place] Temperature Oral (F) 98 F 07/21/2018 [facility] [place] Height 165.1 cm 07/21/2018 [facility] [place] Systolic (mm Hg) 130 06/09/2018 [facility] [place] Diastolic (mm Hg) 75 06/09/2018 [facility] [place] [facility] Temperature Oral (F) 98.0 F 06/09/2018 [facility] [place] Respitory Rate 18 06/09/2018 [facility] [place] Heart Rate 80 06/09/2018 [facility] [place] Temperature Oral (F) 97.6 F 06/08/2018 [facility] [place] Heart Rate 80 06/08/2018 [facility] [place] Respitory Rate 18 06/08/2018 [facility] [place] Systolic (mm Hg) 129 06/08/2018 [facility] [place] Diastolic (mm Hg) 78 06/08/2018 [facility] Height 165.1 cm 06/08/2018 [facility] [place] Temperature Oral (F) 98.4 F 06/08/2018 [facility] [place] Systolic (mm Hg) 126 06/08/2018 [facility] [place] Diastolic (mm Hg) 83 06/08/2018 [facility] [facility] BMI Calculated 30.02 06/08/2018 [facility] [place] Weight 81.818 06/08/2018 [facility] [place] Heart Rate 87 06/08/2018 [facility] [place] Respitory Rate 20 06/08/2018 [facility] [place] Heart Rate 86 09/27/2016 [facility] [place] Temperature Oral (F) 98.2 F 09/27/2016 [facility] [place] Systolic (mm Hg) 117 09/27/2016 [facility] [place] Diastolic (mm Hg) 96 09/27/2016 [facility] [place] Respitory Rate 16 09/27/2016 [facility] [place] Respitory Rate 18 09/26/2016 [facility] [place] Heart Rate 79 09/26/2016 [facility] [place] Systolic (mm Hg) 104 09/26/2016 [facility] [place] Diastolic (mm Hg) 77 09/26/2016 [facility] [facility] Temperature Oral (F) 98.7 F 09/26/2016 [facility] [place] Weight 75 09/26/2016 [place] Respitory Rate 16 09/09/2016 [facility] [place] Systolic (mm Hg) 144 09/09/2016 [facility] [place] Diastolic (mm Hg) 93 09/09/2016 [place] [facility] Temperature Oral (F) 98.1 F 09/09/2016 [facility] [place] Heart Rate 79 09/09/2016 [place] Respitory Rate 16 09/09/2016 [place] Temperature Oral (F) 97.9 F 09/09/2016 [place] Heart Rate 67 09/09/2016 [facility] [place] Systolic (mm Hg) 149 09/09/2016 [facility] [place] Diastolic (mm Hg) 99 09/09/2016 [place] [facility] Systolic (mm Hg) 167 09/09/2016 [facility] [place] Diastolic (mm Hg) 90 09/09/2016 [facility] [facility] Temperature Oral (F) 98.1 F 09/09/2016 [place] Heart Rate 66 09/09/2016 [place] Respitory Rate 16 09/09/2016 [place] Height 165.1 cm 09/05/2016 [place] Weight 72.727 09/05/2016 [place] Weight 72.727 09/04/2016 [place] BMI Calculated 26.68 09/04/2016 [place] Height 165.1 cm 09/04/2016 [place] Systolic (mm Hg) 136 08/17/2016 [facility] [place] Diastolic (mm Hg) 96 08/17/2016 [place] Heart Rate 88 08/17/2016 [place] Respitory Rate 18 08/17/2016 [place] Weight 72.727 08/17/2016 [place] BMI Calculated 26.68 08/17/2016 [place] Temperature Oral (F) 98.4 F 08/17/2016 [place] Height 165.1 cm 08/17/2016 [facility] [place] Systolic (mm Hg) 158 08/17/2016 [facility] [place] Diastolic (mm Hg) 114 08/17/2016 [facility] [place] Heart Rate 96 08/17/2016 [place] Respitory Rate 18 08/17/2016 [facility] [place] Weight 76.818 07/02[facility] BMI Calculated 28.18 07/02/2016 [facility] Height 165.1 cm 07/02/2016 [facility] Temperature Oral (F) 98.2 F 07/02/2016 [facility] Heart Rate 105 07/02/2016 [facility] Systolic (mm Hg) 175 07/02/2016 [facility] Diastolic (mm Hg) 136 07/02/2016 [facility] Respitory Rate 20 07/02/2016 [facility] Systolic (mm Hg) 133 06/26/2016 [facility] Diastolic (mm Hg) 76 06/26/2016 [place] Heart Rate 78 06/26/2016 [place] Respitory Rate 18 06/26/2016 [facility] Respitory Rate 18 06/25/2016 [place] Heart Rate 103 06/25/2016 [place] Temperature Oral (F) 98.6 F 06/25/2016 [place] BMI Calculated 28.35 06/25/2016 [place] Weight 77.273 06/25/2016 [place] Height 165.1 cm 06/25/2016 [place] Systolic (mm Hg) 151 06/25/2016 [place] Diastolic (mm Hg) 94 06/25/2016 [place] Weight 81.818 06/04/2016 [place] Systolic (mm Hg) 141 06/04/2016 [place] Diastolic (mm Hg) 96 06/04/2016 [place] [facility] Temperature Oral (F) 98.4 F 06/04/2016 [place] Respitory Rate 18 06/04/2016 [place] Heart Rate 90 06/04/2016 [place] Temperature Oral (F) 98.5 F 05/14/2016 [place] Heart Rate 86 05/14/2016 [place] Systolic (mm Hg) 150 05/14/2016 [place] Diastolic (mm Hg) 80 05/14/2016 [place] Respitory Rate 16 05/14/2016 [place] Respitory Rate 17 05/14/2016 [place] Temperature Oral (F) 98.2 F 05/14/2016 [place] Heart Rate 85 05/14/2016 [place] Systolic (mm Hg) 170 05/14/2016 [facility] [place] Diastolic (mm Hg) 85 05/14/2016 [place] Height 165.1 cm 05/14/2016 [place] BMI Calculated 29.18 05/14/2016 [place] Weight 79.545 05/14/2016 [place] Respitory Rate 18 05/14/2016 [place] Temperature Oral (F) 98.1 F 05/14/2016 [place] Heart Rate 88 05/14/2016 [place] Systolic (mm Hg) 175 05/14/2016 [place] Diastolic (mm Hg) 90 05/14/2016 [place] Systolic (mm Hg) 137 12/25/2015 [facility] [place] Diastolic (mm Hg) 88 12/25/2015 [place] [facility] Temperature Oral (F) 98.1 F 12/25/2015 [place] Respitory Rate 16 12/25/2015 [place] Heart Rate 89 12/25/2015 [facility] Temperature Oral (F) 98.3 F 12/25/2015 [place] Respitory Rate 20 12/25/2015 [place] Systolic (mm Hg) 121 12/25/2015 [place] Diastolic (mm Hg) 77 12/25/2015 [place] [facility] Heart Rate 102 12/25/2015 [place] Systolic (mm Hg) 134 12/25/2015 [place] Diastolic (mm Hg) 86 12/25/2015 [place] [facility] Respitory Rate 20 12/25/2015 [place] Temperature Oral (F) 98.2 F 12/25/2015 [place] Heart Rate 101 12/25/2015 [place] [facility]909 [facility] 30.96 12/19/2015 [place] Weight 81.818 12/19/2015 [place] Weight 79.545 12/18/2015 [place] Respitory Rate 18 09/21/2015 [place] Systolic (mm Hg) 122 09/21/2015 [place] Diastolic (mm Hg) 78 09/21/2015 [place] Heart Rate 92 09/21/2015 [place] BMI Calculated 28.35 09/21/2015 [place] Temperature Oral (F) 97.7 F 09/21/2015 [place] Systolic (mm Hg) 120 09/21/2015 [place] Diastolic (mm Hg) 75 09/21/2015 [place] [facility] Weight 77.273 09/21/2015 [place] Height 165.1 cm 09/21/2015 [place] Heart Rate 102 09/21/2015 [place] Respitory Rate 18 09/21/2015 [place] Temperature Oral (F) 98 F 08/13/2015 [facility] Heart Rate 71 08/13/2015 [facility] Systolic (mm Hg) 158 08/13/2015 [facility] Diastolic (mm Hg) 88 08/13/[address] [address] Heart Rate 78 08/13/2015 [facility] Systolic (mm Hg) 143 08/13/2015 [facility] Diastolic (mm Hg) 75 08/13/[address] Systolic (mm Hg) 134 08/13/2015 [facility] Diastolic (mm Hg) 71 08/13/[address] Respitory Rate 22 08/13/2015 [facility] Temperature Oral (F) 98.2 F 08/13/2015 [facility] Heart Rate 87 08/13/2015 [facility] Weight 84.091 08/13/2015 [facility] Respitory Rate 18 08/13/2015 [facility] Temperature Oral (F) 98.1 F 08/13/2015 [facility] Heart Rate 88 08/11/2015 [place] Temperature Oral (F) 98.6 F 08/11/2015 [place] Respitory Rate 18 08/11/2015 [place] Systolic (mm Hg) 125 08/11/2015 [place] Diastolic (mm Hg) 88 08/11/2015 [place] Systolic (mm Hg) 116 08/11/2015 [place] Diastolic (mm Hg) 76 08/11/2015 [place] Heart Rate 84 08/11/2015 [place] Respitory Rate 18 08/11/2015 [place] Weight 84.091 08/10/2015 [place] Systolic (mm Hg) 150 08/10/2015 [place] Diastolic (mm Hg) 105 08/10/2015 [place] Respitory Rate 20 08/10/2015 [place] Heart Rate 121 08/10/2015 [place] Temperature Oral (F) 98.3 F 08/10/2015 [place] Systolic (mm Hg) 94 07/30/2015 [place] Diastolic (mm Hg) 58 07/30/2015 [place] Heart Rate 83 07/30/2015 [place] Temperature Oral (F) 98.3 F 07/30/2015 [place] Respitory Rate 17 07/30/2015 [place] Systolic (mm Hg) 111 07/30/2015 [place] Diastolic (mm Hg) 71 07/30/2015 [place] Respitory Rate 18 07/30/2015 [place] Temperature Oral (F) 98.3 F 07/30/2015 [place] Heart Rate 76 07/30/2015 [place] Heart Rate 83 07/30/2015 [place] Respitory Rate 19 07/30/2015 [place] Temperature Oral (F) 98.1 F 07/30/2015 [place] Weight 83.591 07/30/2015 [place] Height 165.1 cm 07/30/2015 [place] BMI Calculated 30.67 07/30/2015 [place] BMI Calculated 30.85 07/29/2015 [place] Weight 84.091 07/29/2015 [place] Height 165.1 cm 07/29/2015 [place] Respitory Rate 18 07/28/2015 [place] Systolic (mm Hg) 114 07/28/2015 [place] Diastolic (mm Hg) 71 07/28/2015 [place] [facility] Temperature Oral (F) 98.4 F 07/28/2015 [place] Heart Rate 108 07/28/2015 [place] Temperature Oral (F) 98.1 F 07/28/2015 [place] Respitory Rate 18 07/28/2015 [place] Systolic (mm Hg) 131 07/28/2015 [place] Diastolic (mm Hg) 84 07/28/2015 [place] Heart Rate 106 07/28/2015 [place] BMI Calculated 30.85 07/28/2015 [place] Height 165.1 cm 07/28/2015 [place] Weight 84.091 07/28/2015 [place] Temperature Oral (F) 98.4 F 07/28/2015 [place] Heart Rate 110 07/28/2015 [place] Respitory Rate 18 07/28/2015 [place] Systolic (mm Hg) 127 07/28/2015 [place] Diastolic (mm Hg) 83 07/28/2015 [place] Temperature Oral (F) 98.0 F 02/22/2013 [facility] Respitory Rate 18 02/22/2013 [facility] Systolic (mm Hg) 131 02/22/2013 [facility] Diastolic (mm Hg) 83 02/22/[address] [address] Heart Rate 84 02/22/2013 [facility] Weight 81.818 02/21/2013 [facility] Height 165.1 cm 02/21/2013 [facility] Temperature Oral (F) 98.3 F 02/21/2013 [facility] Heart Rate 85 02/21/2013 [facility] Respitory Rate 18 02/21/2013 [facility] Systolic (mm Hg) 137 02/21/2013 [facility] Diastolic (mm Hg) 87 02/21/[address] Weight 81.818 01/20/2013 [facility] Height 165.1 cm 01/20/2013 [facility] Systolic (mm Hg) 132 01/20/2013 [facility] Temperature Oral (F) 98.6 F 01/20/2013 [facility] Respitory Rate 15 01/20/2013 [facility] Diastolic (mm Hg) 79 01/20/[address] Heart Rate 80 01/20/2013 [facility] Temperature Oral (F) 98.2 F 01/07/2013 [facility] Heart Rate 81 01/07/2013 [facility] Respitory Rate 14 01/07/2013 [facility] Systolic (mm Hg) 121 01/07/2013 [facility] Diastolic (mm Hg) 69 01/07/[address] Diastolic (mm Hg) 75 01/07/[address] Respitory Rate 14 01/07/2013 [facility] Systolic (mm Hg) 121 01/07/2013 [facility] Heart Rate 76 01/07/2013 [facility] Temperature Oral (F) 98.4 F 01/07/2013 [facility] Diastolic (mm Hg) 77 01/07/[address] Temperature Oral (F) 98.5 F 01/07/2013 [facility] Heart Rate 77 01/07/2013 [facility] Systolic (mm Hg) 135 01/07/2013 [facility] Respitory Rate 16 01/07/2013 [facility] Height 154.94 cm 01/06/2013 [facility] Weight 84.091 01/06/2013 [facility] Weight 84.091 01/04/2013 [facility] Height 154.94 cm 01/04/2013 [facility] Systolic (mm Hg) 132 12/16/2012 [facility] Temperature Oral (F) 98.4 F 12/16/2012 [facility] Diastolic (mm Hg) 76 12/16/[address] Heart Rate 85 12/16/2012 [facility] Respitory Rate 18 12/16/2012 [facility] Systolic (mm Hg) 136 12/16/2012 [facility] Diastolic (mm Hg) 77 12/16/[address] Temperature Oral (F) 98.7 F 12/16/2012 [facility] Heart Rate 88 12/16/2012 [facility] Weight 84.091 12/16/2012 [facility] Height 165.1 cm 12/16/2012 [facility] Heart Rate 90 12/16/2012 [facility] Diastolic (mm Hg) 90 12/16/[address] Systolic (mm Hg) 148 12/16/2012 [facility] Respitory Rate 18 12/16/2012 [facility] Temperature Oral (F) 98.1 F 12/16/2012 [facility] Height 165.1 cm 08/18/2012 [facility] Weight 86.364 08/18/2012 [facility] Height 165.1 cm 07/05/2012 [facility] Weight 81.818 07/05/2012 [facility] Respitory Rate 18 04/27/2012 [facility] Temperature Oral (F) 98.5 F 04/27/2012 [facility] Systolic (mm Hg) 114 04/27/2012 [facility] Heart Rate 94 04/27/2012 [facility] Diastolic (mm Hg) 78 04/27/[address] Heart Rate 87 04/27/2012 [facility] Temperature Oral (F) 98.4 F 04/27/2012 [facility] Respitory Rate 16 04/27/2012 [facility] Systolic (mm Hg) 119 04/27/2012 [facility] Diastolic (mm Hg) 80 04/27/[address] Diastolic (mm Hg) 89 04/27/[address] Respitory Rate 18 04/27/2012 [facility] Systolic (mm Hg) 131 04/27/2012 [facility] Temperature Oral (F) 97.9 F 04/27/2012 [facility] Heart Rate 80 04/27/2012 [facility] Height 165.1 cm 04/21/2012 [facility] Weight 81.818 04/21/2012 [facility] Height 165.1 cm 04/20/2012 [facility] Weight 81.818 04/20/2012 [facility] Height 165.10 cm 03/29/2012 [facility] Weight 84.091 03/29/2012 [facility] Weight 79.545 02/24/2012 [facility] Height 165.10 cm 02/24/2012 [facility] Weight 77.273 08/08/2011 [facility] Height 165.10 cm 08/08/2011 [facility] Encounters Location Location Encounter Encounter Reason Attending ADM DC Stat us Source Details Type Number For Provider Date Date Visit [facility] Emergency [id number] SHOSHANA 08/07 08/07 Discharg [facility] 1 [place]AGU /2011 [facility] [id number] NADIM ADVENTIST 02/23 02/23 Disc harg [facility] Emergency [id number] NADIM ADVENTIST 03/29 03/29 Disc harg [facility] Inpatient [id number] MILAN 04/20 04/27 Discharg [facility] [id number] WAYLON JEAN 07/05 07/05 Disch arg [facility] [id number] WAYLON JEAN 08/18 08/18 Disch arg [facility] [id number] LT WAYLON JEAN 12/15 12/16 Activ e [facility] [place] [facility] Inpatient [id number] IGOR WILDER 01/05 01/07 Dischar g [facility] [facility] Emergency [id number] ODETTE CASTILLO 01/20 01/20 Disc harg [facility] [facility] [id number] CHRISTION 02/21 02/21 Discha rg [facility] 0 [place] [facility] [place] [id number] Boboer 07/27 07/27 [facility] [place] [facility] 1 Angie pugh [facility] OBS [id number] Harsha Mancini 07/28 07/29 [facility] [place] [id number] Brian 08/09 08/10 [facility] [place] [facility] 3 Jesus Jr /2015 Dolly pinzon [facility] EC [id number] Nadim Christianity 08/12 08/12 [facility] [place] [facility] [place] [id number] Pura 09/20 09/20 [facility] [place] [facility] [id number] Khadijat 12/17 12/24 [facility] [place] 6 Ogunbiyi /2015 [facility] Emergency [id number] Katy 05/14 05/14 [facility] 7 [place] /2016 [facility] Emergency [id number] Waylon 06/04 06/04 [facility] 8 Rhonda /2016 [facility] Emergency [id number] Lisandro 06/25 06/26 [facility] [place] 9 Malya [facility] Emergency [id number] Cade 07/02 07/03 [facility] [place] 0 Contreras [facility] Emergency [id number] Jerome Natarajan 08/17 08/17 [facility] Inpatient [id number] Aman Godwin 09/04 09/09 [facility] Emergency [id number] Waylon 09/26 09/27 [facility] [place] 3 Rhonda /2016 [facility] Emergency [id number] Radha 06/08 06/09 [facility] [place] 4 Aznaurova-A /2018 [facility] Emergency [id number] Kylah 07/21 07/21 [facility] [place] 5 Vishnyakova /2018 [facility] Inpatient [id number] Jarrod 05/14 05/16 [facility] [place] 7 Alta /2019 [facility] Procedures Procedure Code Date Perfomer Comments Source Cholecystectomy [id number] [facility] Hysterectomy [id number] [facility] Endometrial ablation [id number] [place] Cholecystectomy [id number] [facility] Endometrial ablation [id number] [facility] Hysterectomy [id number] [facility] Assessment and Plan Assessment and Plan Date Source Extracted from:Title: Clinical Document 05/17/2019 [facility] Author: Maurice Cruz MD Date: 05/16/19 Progress Note Gastroenterology and Hepatology ASSESSMENT /PLAN: 1. Right upper quadrant/right CVA abdom inal pain -work-up negative for biliary or urinary tract etiology. Seems fairly superficial, question referred from thoracic spine. X-ray thoracic spine unrevealing. 2. Abnormal LFTsthey have been normal in the past, likely intercurrent. No evidence of choledocholithiasis on MRCP. Sphincter of Oddi dysfunction is a consideration. 3. GERD, gastroparesis. Nausea vomiting likely related to latter. 4. Chronic left upper quadrant pain RECOMMENDATIONS AND PLAN: PPI daily. From GI viewpoint may be discharged if p ain can be controlled with medication and subsequent outpatient follow-up. Should resume Linzess as outpatient. Diet as tolerated. Abnormal LFTs can be followed as outpatient as well. Patient symptoms appear functional in na ture and exhibit signs of drug-seeking behavior. Would recommend stopping IV narcotics at this time. If continues to have significant nausea/vomiting, EGD can b e pursued although all nonurgent procedu res are currently being postponed due to COVID pandemic. SUBJECTIVE: Pt continues to complain o f significant epigastric pain, nausea and vomiting. She continues to get IV Dilaudid regularly. Review of Systems: (-)=Negative,(+)=Positive 1) Const: (-) fever, (-) weight change 2) Skin: (-) rash, (-) bleeding 3) HEENT: (-) difficulty swallowing, (-) swelling 4) Eyes: (-) vision changes, (-) bleeding 5) Neuro: (-) weakness, (-) headaches 6) Resp: (-) dyspnea on exertion, (-) cough 7) Cardio: (-) chest pain, (-) orthopnea 8) GI: (-) blood in stool, (-) reflux 9) : (-) dysuria, (-) bloody discharge 10) Endo: (-) heat intolerance, (-) cold intolerance OBJECTIVE: Vitals: See below General: Alert , no distress, CVS: s1s2 RRR Resp: CTA Bilaterally Abd : Soft, NT, ND , BS +, no hepatosplenomegaly Ext : no edema, no clubbing or cyanosis. 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 Vitals Tmp(F) Pulse BP RR SpO2 FIO2 05/15 15:27 98.1 84 127/75 -- 98 --- 05/15 10:33 98.1 94 141/78 -- 95 --- 05/15 08:00 98.1 79 142/79 -- 98 --- 05/15 04:21 98.6 81 128/77 -- 97 --- 05/15 00:02 98.5 80 119/68 -- 98 --- 24 Hr Tmax: 98.7F (37.06c) at 05/14 20:0 0 Vital Signs are the last 5 in the past 48 hours. Lines, Tubes, and Drains: 05/14/2019 07:48 Peripheral Lines: Antec ubital Left 18 gauge Over the needle catheter Cholecystectomy Hysterectomy Endometrial ablation I&O Record In Out Bal 05/15 24hr Tot 3 0 3 05/14 24hr Tot 309 0 309 Medications (14) Active Scheduled: (4) dicyclomine hcl 10 mg CAP 10 mg 1 cap, PO, TID hydrochlorothiazide 12.5 mg TAB 12.5 mg 1 tab, PO, Daily lisinopril 5 mg TAB 10 mg 2 tab, PO, Daily pantoprazole 40 mg ECT 40 mg 1 tab, PO, Daily Continuous: (1) Lactated Ringers 1,000 mL 1,000 mL, IV, 75 ml/hr PRN: (9) acetaminophen 325 mg TABLET 650 mg 2 tab, PO, Q4H Dextrose 50% 50 ml INJ syringe 12.5 gm 25 mL, IVP, PRN Dextrose 50% 50 ml INJ syringe 25 gm 50 mL, IVP, PRN docusate sodium 100 mg CAP 100 mg 1 cap, PO, BID glucagon recombinant 1 mg PDR 1 mg, IM, PRN HYDROmorphone 0.5mg/0.5mL syringe 0.5 mg 0.5 mL, IVP, Q4H melatonin 3 mg TAB 3 mg 1 tab, PO, Bedtime ondansetron 4 mg/2ml INJ VL 4 mg 2 mL, IVP, Q8H sodium chloride 0.9% 10 ml flush syr BD 10 ml, IVP, PRN Labs (Last four charted values) WBC 9.5 (MAY 14) 9.6 (MAY 13) Hgb L 11.2 (MAY 14) L 11.7 (MAY 13) Hct L 33.1 (MAY 14) L 34.7 (MAY 13) Plt 229 (MAY 14) 237 (MAY 13) Na 140 (MAY 14) 141 (MAY 13) K 3.7 (MAY 14) 3.7 (MAY 13) CO2 30 (MAY 14) H 33 (MAY 13) Cl 106 (MAY 14) 107 (MAY 13) Cr 0.50 (MAY 14) 0.57 (MAY 13) BUN L 6 (MAY 14) L 5 (MAY 13) Glucose Random 90 (MAY 14) 95 (MAY 13) Mg 2.2 (MAY 13) Phos 2.5 (MAY 13) Ca 8.5 (MAY 14) 8.7 (MAY 13) Extracted from:Title: Clinical Document Author: Jeronimo Padron MD Date: 05/14/19 Consult Note Gastroenterology and Hepatology Reason for Consult: Abdominal pain, dilated bile duct, possible choledocholithia sis Referring MD: Jasmin Ball MD IMPRESSION: 1. Right upper quadrant/right CVA abdom inal pain, which is unlikely to be biliary given MRI report. Need to rule out ureteric calculus/pyelonephritis. Acute appendicitis less likely if indeed CT scan at other facility did not show any evidence for it. 2. Abnormal LFTsuncertain if acute or chronic. No evidence of choledocholithiasis on MRCP. Chronic hepatitides or sphincter of Oddi dysfunction are considerations 3. GERD, gastroparesis. Nausea vomiting likely related to latter. 4. Chronic left upper quadrant pain RECOMMENDATIONS AND PLAN: 1. Obtain outside CT scan report and ultrasound report 2. UA reflex to culture here. Antibiot ics if indicated for UTI. May need renal protocol CT here. 3. Serologies for chronic liver diseases and monitor LFTs f or now. 4. P.o. clear liquids.. Continue pantoprazole. Further recommendation to follow. Plan discussed with patient, nurse and attending. Thank you for the consultation. HPI: 43-year-old lady, ( anthony Tuttle) with his tory of GERD, gastroparesis, (recently saw my associate Dr. Cruz as an outpatient for this as well as chronic left upper quadrant abdominal pains and constipatio n ); is s/p cholecystectomy several year s ago, presented to [facility] ER with 3-day history of right upper quadrant/right CVA region pain, somewhat colicky, without radiation to shoulders, chest or rest of abdomen, as sociate with some nausea and nonbloody emesis. No prior similar events. No fever or chills. No dysuria or hematuria though states has had kidney stones in the past -pain is similar. States the left upper quadrant pain has been present for a while, has been assessed by various gastroenterologists, no records to hand and has not changed. States Linzess that was prescribed recently h as helped her constipation somewhat. [place] s not had a CT enterography that was recommended at consult. Denies any GI bleeding, early satiety or weight loss, odynophagia or dysphagia. GERD controlled with pantoprazole. Outside CT abdomen and pelvis was negati ve for acute pathology, right upon ultrasound showed 10 mm CBD-the reports are not in chart and this information is obtained from admission history. No UA availa ble either.. Patient was transferred to this facility, for GI consultation has none available at other facility. Lab work here shows CO2 of 33 otherwise normal electrolytes, bilirubin 0.8, alk phos 120, AST 78, ALT 153. EGFR 113, hemoglobin 11.7, WBC 9.6, platelets 237. MRI abdomen with MRCP protocol shows mil d intra-and extrahepatic biliary dilatation likely physiologic. There is no evidence of choledocholithiasis or strictures. Normal pancreatic duct. Gallbladder absent. Other structures unremarkable. Patient is not aware of abnormal LFTs in the past. Denies alcohol consumption, or high risk behaviors of family history of liver disease. COVID 19 screendenies recent travel, no ill contacts, denies fever, sore throat, cough, dyspnea. PMH: Hypertension. Gastroparesis. Nephrolithiasis. GERD. DVT. Depression. Restless leg syndrome. Pancreatitis PSH: Cholecystectomy Hysterectomy Endometrial ablation PSYCHO-SOCIAL: Denies tobacco, alcohol or recreational drug use. FAMILY HISTORY: Mother: Breast cancer; High blood pressure; Type 2 diabetes mellitus Medication List Active Medications Ordered acetaminophen: 650 mg, 2 tab, PO, Q4H, PRN: Pain 1-3/Temp > 100.4 F. Dextrose 50% in Water IV: 12.5 gm, 25 mL, IVP, MI N, PRN: Blood Glucose Results. Dextrose 50% in Water IV: 25 gm, 50 mL, IVP , PRN, PRN: Blood Glucose Results. dicyclomine: 10 mg, 1 cap, PO, TID. docusate: 100 mg, 1 cap, PO, BID, PRN: as needed for constipation. glucagon: 1 mg, IM, PRN, PRN: Blood Glucose Resul ts. hydrochlorothiazide: 12.5 mg, 1 tab, PO, Daily. hydromorphone: 0.5 mg, 0.5 mL, IVP, Q4H, PRN: Denisse n Score 7-10. Lactated Ringers Injection IV 1,000 mL: 75 ml/hr, IV, Stop: 06/12/19 19:51:00 CDT. lisinopril: 10 mg, 1 tab, PO, Daily. melatonin: 3 mg, 1 tab, PO, Bedtime, PRN: Insomni a. ondansetron: 4 mg, 2 mL, IVP, Q8H, PRN: Nausea an d Vomiting. pantoprazole: 40 mg, 1 tab, PO, Daily. sodium chloride: 10 ml, IVP, PRN, PRN: Line Flush . Suspended dicyclomine: 10 mg, 1 cap, PO, TID, for 3 day, 9 cap, 0 Refill(s). famotidine: 40 mg, 1 tab, PO, Daily, 30 tab, 3 Re fill(s). hydrochlorothiazide-lisinopri l: 1 tab, PO, Daily, 30 tab, 0 Refill(s). linaclotide: PO, Daily, 0 Refill(s). ondansetron: 4 mg, 1 tab, PO, TID, for 2 day, Dis solve tab under tongue, PRN: Nausea and Vomiting, 6 tab, 0 Refi ll(s). ondansetron: 4 mg, 1 tab, PO, BID, for 5 day, Dis solve tab under tongue, PRN: Nausea and Vomiting, 10 tab, 0 Ref ill(s). pantoprazole: 40 mg, 1 tab, PO, Daily, 30 tab, 0 Refill(s). Medications Inactivated in the Last 72 Hours hydrochlorothiazide-lisinopril: 1 tab, PO, Daily. LORazepam: 0.5 mg, 0.25 mL, IVP, ONCE, PRN: Anxiety. promethazine + Sodium Chloride 0.9% IV 50 mL: 12.5 mg , 0.5 mL, 151.5 ml/hr, IVPB, ONCE, PRN: Nausea and Vomiting. Allergies: morphine Review of Systems: NEGATIVE unless bold General: weight loss, loss of appetite, fever, chills, excessive malaise, fatigue, generalized weakness HEENT : recent change in vision, eye denisse n, diplopia, epistaxis, sinus pain, sore throat, throat pain, acute hearing loss, ear pain or discharge RESPIRATORY: shortness of breath, hemoptysis, cough, wheezin g, pleuritic pains CVS: chest pain, palpitations, irregular heart beat, low extremity swelling, heart murmurs GI: see HPI : hematuria, dysuria, incontinence, ur inary frequency, impaired urine flow. recurrent UTIs MS: acute arthritis, back pain, joint swelling, gout Neurological: acute altered mentation, h eadaches, recent seizures, falls, recent loss of consciousness, gait problems, focal limb weakness, numbness, tingling , paraesthesia Endocrine: polydypsia, polyuria, unusual hair loss Immunological/ Hematological; acute blee ding, easy bleeding or bruising, lymph node swelling, recurrent infections Psychiatric: hallucinations. psychosis, confusion, depression, suicidal ideation Integument: rash, jaundice, generalized Physical Examination: Vital signs as below. In mild distress. Not diaphoretic. HEENT: normal, EOMI, atraumatic, no asym metry; neck supple, no LN/ thyromegaly/ mass/ bruits, JVD neg Chest: CTA, resonant to percussion, no accessory muscle use Cardiac: regular rhythm, normal S1 and S2; apex not displac ed, no edema Abdo: Soft, not distended moderate right upper quadrant/right CVA tenderness, no rebound or guarding, mild left upper quadrant tenderness, no mass, no ascites, no hernia, normal BS, no bruits Ext: No cyanosis, clubbing; peripheral pulses palpable Neuro: A and O x3, grossly intact cranial nerves; non-focal exam. MS: Normal Recent Labs/Radiology reviewed Vitals Tmp(F) Pulse BP RR SpO2 FIO2 05/13 08:00 98.1 98 118/69 16 --- --- 05/13 03:23 98.7 101 114/77 17 95 --- 05/12 23:38 99.1 98 123/74 18 98 --- 05/12 19:09 98.8 87 115/82 17 97 --- 24 Hr Tmax: 99.1F (37.28c) at 05/12 23:3 8 Vital Signs are the last 5 in the past 48 hours. Date Wt(kg) Wt(lb) Ht(cm) Ht(in) Method 05/12 (initial) 79.55 175.00 Estimated 05/12 165.10 65.00 Stated Labs (Last four charted values) WBC 9.6 (MAY 13) Hgb L 11.7 (MAY 13) Hct L 34.7 (MAY 13) Plt 237 (MAY 13) Na 141 (MAY 13) K 3.7 (MAY 13) CO2 H 33 (MAY 13) Cl 107 (MAY 13) Cr 0.57 (MAY 13) BUN L 5 (MAY 13) Glucose Random 95 (MAY 13) Mg 2.2 (MAY 13) Phos 2.5 (MAY 13) Ca 8.7 (MAY 13) Extracted from:Title: History and Physical Author: Jasmin Ball MD Date: 05/13/19 43-year-old female with history of hyper tension, gastroparesis, nephrolithiasis who presented to an outside EDwith 3 days of worsening right flank and right upper quadrant pain. Suspected choledocholithiasis - will get MRCP to evaluate - npo after midnight for possible ERCP - appreciate GI recommendations - IVF, antiemetics, prn dilaudid HTN - home medications reconciled Gastroparesis - home medications reconciled SCDs observation, anticipate 1 midnight Extracted from:Title: Clinical Document 09/09/2016 [place] Author: Maurice Cruz MD Date: 09/08/16 Progress Note Gastroenterology and Hepatology ASSESSMENT /PLAN: SESSMENT AND PLAN: A 40-year-old female with past medical h istory of DVT, cholecystectomy, hysterectomy and endometrial ablation due to endometriosis, GERD, anxiety, depression, among other medical problems who was admitt ed with recurrent acute onset abdominal pain, nausea and vomiting. No etiology of patient's symptoms is found at this time, symptoms are likely functional in nature. 09/08/16 EGD with Mild antral gastritis a nd few small gastric polyps. Random stomach and polyps biopsied. Recommend Follow up results of biopsies. Prilosec 40 mg po once daily. Avoid NSAIDs such as Motrin, Aspirin, Al lubna, Advil, Ibuprofen termite inspector if possible. F/up with Dr. Cruz in clinic in 2 weeks. Ok to d/c from GI perspective. A MRI/EUS of the pancreas can be perform ed as an outpt to evaluate for changes of pancreatitis given fatty pancreas seen on CT. SUBJECTIVE: Pt underwent EGD today. No new GI issues. 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 Lines, Tubes, and Drains: 09/04/2016 16:53 Peripheral Lines: Antec ubital Left 20 gauge Over the needle catheter Cholecystectomy Hysterectomy Endometrial ablation I&O Record In Out Bal 09/07 24hr Tot 1585 0 1585 09/06 24hr Tot 1507 0 1507 Medications (8) Active Scheduled: (3) dicyclomine hcl 10 mg CAP 10 mg 1 cap, PO, TID famotidine 20 mg tab 20 mg 1 tab, PO, BID heparin 5000 unit/1 ml INJ VL 5,000 unit 1 mL, SUB-Q, Q12H Continuous: (2) sodium chloride 0.9% 1000 ml INJ 1,000 mL 1,000 mL, IV, 125 ml/hr sodium chloride 0.9% 1000 ml INJ 1,000 mL 1,000 mL, IV, 25 ml/hr PRN: (3) HYDROmorphone 1mg/ml INJ Carpuject 1 mg 1 mL, IVP, Q6H metoclopramide 10 mg/2 ml VL 5 mg 1 mL, IV, Q6H sodium chloride 0.9% 10 ml flush syr BD 10 mL, IVP, PRN Labs (Last four charted values) WBC H 11.0 (SEP 05) 9.8 (SEP 04 ) Hgb 12.0 (SEP 05) 13.2 (SEP 04) Hct L 35.5 (SEP 05) 39.2 (AUG 17) Plt 249 (SEP 05) 287 (SEP 04) Na 143 (SEP 05) 141 (SEP 04) K 3.6 (SEP 05) 3.6 (SEP 04) CO2 29 (SEP 05) 32 (SEP 04) Cl 106 (SEP 05) 104 (SEP 04) Cr 0.59 (SEP 05) 0.80 (SEP 04) BUN 13 (SEP 05) 11 (SEP 04) Glucose Random H 100 (SEP 05) H 100 (AUG 17 0) Ca 8.9 (SEP 05) 9.0 (SEP 04) PT 13.1 (SEP 05) INR 0.97 (SEP 05) PTT 27.7 (SEP 05) Extracted from:Title: Admission H&P * Author: Maynor Pollock MD Date: 09/04/16 Impression and Plan 40-year-old female with history of pancr eatitis admitted with acute abdominal pain. 1. Acute abdominal pain. Etiology acut e pancreatitis. Similar episode in the past. CT scan as above. Status post cholecystectomy. No history of alcohol abuse. 2. Pain management. 3. Hypovolemia due to 1. 4. DVT prophylaxis. Heparin subcutaneous. 5. Abnormal UA, no symptoms, no intervention. Plan IV hydration. N.p.o. Right upper quadrant ultrasound. Pepcid. Morphine IV as needed. Extracted from:Title: Clinical Document 12/25/2015 [place] Author: Rachel Selby MD Date: 12/24/15 Patient is s/p laparoscopic bilateral sa lpingo-oophorectomy this morning. She says that her pain has already improved. No n/v. She has been able to tolerate PO intake. From a surgical aspect, she can be discharged home as soon as able to tole rate and respond to PO pain medication. Already discussed some natural remedies for possible hot flashes. Extracted from:Title: Brief Operative Note Author: Rachel Selby MD Date: 12/24/15 Pre-op diagnosis: severe pelvic pain, endometriosis Post-op diagnosis: same Procedure: Laparoscopic lysis of adhesions and bilateral kailey pingo-oophorectomy Surgeon: Rachel Selby Anesthesia: general EBL: <10cc Pathology: Bilateral tubes and ovaries Findings: Adhesions of the bowel to the lower-anterior and left pelvic side wall. Suspected endometriotic implant on right ovary. Otherwise normal ovaries and tubes. Dispo: Stable to PACU Extracted from:Title: Clinical Document Author: Isaiah Manciin MD Date: 12/21/15 General Surgery Consult Note Reason for consult: abdominal pain HPI:40 y.o with chronic left sided pain presents for exacerbation of similar symptoms that has been plaguing her for a while. She had similar pain in the past in 2011 at which time she underwent ablatio n of endometrial implants and had some i mprovement in symptoms but not for long. She already is s/p hysterectomy but still has ovaries. Unable to related pain to any menstrual cycle but reports pain is no present every day. Pain is sharp, tea ring and on left side and lower pelvis. She's undergone EGD, colonoscopy which have been negative. No recent endometrial ablations since 2011. Repeat CT here as well as prior CTs which I reviewed h ave been negative. Specifically there is no evidence of diverticulitis or significant diverticulosis. The appendix is normal and fills with contrast. A/P: 40 y.o with chronic pelvic and left sided pain. Unclear cause. Possible endometrial implants which makes most sense given history and response to prior ablation. Will defer to OB on need for diagnostic laparoscopy and endo metrial ablation. No acute general surgical issues from my standpoint that warrant need for diagnostic laparoscopy. I think this should be done by ob Otherwise pain management I will sign off as this point. Please le t me know if any other surgical issues arise. Past Medical/Surgical History Depression Restless leg syndrome DVT - Deep vein thrombosis Chronic GERD Cholecystectomy Hysterectomy Endometrial ablation Family History Mother: Breast cancer; High blood pressure; Type 2 diabetes mellitus Social History Tobacco Details: Use: Never smoker. Tobacco smo ke exposure: None. Did the Patient Smoke Cigarettes Anytime During the Last 365 Days? No. Cessation Counseling Provided? No. Details: Use: Never smoker. Household t obacco concerns: No. Tobacco smoke exposure: None. Did the Patient Smoke Cigarettes Anytime During the Last 365 Days? No. Cessation Counseling Provided? No. Review of Systems A 10 point ROS was negative other than as per HPI. Medication List Active Medications Ordered acetaminophen: 650 mg, 2 tab, PO, Q4H, PRN: Pain 1-3/Temp > 100.4 F. acetaminophen-hydrocodone: 1 tab, PO, Q4H, PRN: P ain Score 4-6. dicyclomine: 10 mg, 1 cap, PO, TID. famotidine: 40 mg, 2 tab, PO, Daily. hydromorphone: 1 mg, 1 mL, IVP, Q4H, PRN: Pain Sc ore 7-10. ondansetron: 4 mg, 2 mL, IVP, Q6H, PRN: Nausea an d Vomiting. pantoprazole: 40 mg, 1 tab, PO, Before Dinner. promethazine + sodium chloride 0.9% INJ 50 mL: 25 mg, 1 mL, 153 ml/hr, IVPB, Q6H, PRN: Nausea and Vomiting. sodium chloride: 10 mL, IVP, PRN, PRN: Line Flush . sodium chloride: 10 ml, IVP, PRN, PRN: Line Flush . sodium chloride 0.9% 1000 ml INJ 1,000 mL: 125 ml /hr, IV, Stop: 01/17/16 22:52:00 PSYCHOLOGICAL AIDE. Documented ARIPiprazole: . Suspended buPROPion: 100 mg, 1 tab, PO, BID. dicyclomine: 10 mg, 1 cap, PO, TID, for 3 day, 9 cap, 0 Refill(s). famotidine: 40 mg, 1 tab, PO, Daily, 30 tab, 3 Re fill(s). pantoprazole: 40 mg, 1 tab, PO, Daily, 30 tab, 0 Refill(s). QUEtiapine: 50 mg, 1 tab, PO, Daily, 60 tab, 0 Re fill(s). Medications Inactivated in the Last 72 Hours acetaminophen-hydrocodone: 1 tab, PO, ONCE. acetaminophen-hydrocodone: 1 tab, PYXIS, ONCE. acetaminophen-hydrocodone: 1 tab, PYXIS, ONCE. hydromorphone: 1 mg, 1 mL, IVP, ONCE. hydromorphone: 1 mg, 1 mL, PYXIS, ONCE. hydromorphone: 1 mg, IVP, Q4H, PRN: Pain Score 7-10. influenza virus vaccine, inactivated: 0.5 mL, IM, ONC ALL. influenza virus vaccine, inactivated: 0.5 mL, IM, Renate ly. iohexol: 100 mL, PYXIS, ONCE. ketOROLAC: 30 mg, IVP, ONCE. ketOROLAC: 30 mg, 1 mL, PYXIS, ONCE. Lactated Ringers 1,000 mL: 999 ml/hr, IV, Stop: 01/16 20:55:00 PSYCHOLOGICAL AIDE. morphine Sulfate: 4 mg, 1 mL, IVP, ONCE. morphine Sulfate: 4 mg, 1 mL, PYXIS, ONCE. morphine Sulfate: 2 mg, 1 mL, IVP, Q4H, PRN: Pain Sco re 7-10. promethazine: 25 mg, 1 mL, PYXIS, ONCE. Sodium Chloride 0.9% IV: 50 mL, PYXIS, ONCE. Physical Exam General: _NAD HEENT: _Anicteric Cardiovascular: _RRR Respiratory: _Respirations unlabored Abdomen: _soft, obese, left sided tenderness on superficial palpation, no G/R. Extremities: _warm, no edema Integumentary: _no rash, abdominal stria Neurologic: _alert, oriented x3 Vitals Tmp(F) Pulse BP RR SpO2 FIO2 12/20 11:56 98.5 85 147/87 18 98 --- 12/20 07:47 98.4 89 134/84 18 99 --- 12/20 03:05 98.3 78 134/82 18 98 --- 12/19 23:40 98.2 80 137/83 18 99 --- 12/19 19:35 98.1 82 125/77 16 98 --- 24 Hr Tmax: 98.5F (36.94c) at 12/20 11:5 6 Vital Signs are the last 5 in the past 48 hours. 24hr Labs 12/20 0402 Glucose Lvl 77 BUN 7 Creatinine Lvl 0.40 L Sodium Lvl 140 Potassium Lvl 3.5 Chloride Lvl 105 CO2 28 AGAP 10.5 Calcium Lvl 8.1 L eGFR 130 WBC 12.8 H RBC 3.38 L Hgb 10.3 L Hct 29.9 L MCV 88.5 MCH 30.4 MCHC 34.4 RDW 15.3 H Platelet 255 MPV 8.6 Segs 68.2 Monocytes 8.4 Lymphocytes 21.7 Eosinophils 1.3 Basophils 0.4 Segs-Bands # 8.7 H Lymphocytes # 2.8 Monocytes # 1.1 H Eosinophils # 0.2 Extracted from:Title: Clinical Document Author: Harsha Mancini MD Date: 12/18/15 History and Physical Attending: Waylon Ellis MD P kaci: Service: Emergency Medicine Code status: None Specified=FULL CODE Reason for Admission: ABDOMINAL PAIN Working DRG: None Documented Isolation: None Documented Consulting Physicians: Sierra Cox MD Office: Servi ce: [employer] CC: really bad stomach pain HPI: This is a 40 yo w/ below PMHx who p /w 3 day h/o sudden onset abdoimal pain. Pt was sitting still when symptoms came on all of a sudden. Located along entire lower abdomen and suprapubic area with n o other radiation. Described as constant , severe, ripping. Nothing aggravates or alleviates the pain. It it is independent of activity. Eating, BMs, and urination do not affect the pain. No change in me nstrual cycle. Pt has had similar pain in the past with nega tive workups. PMHx: GERD chronic gastritis endometriosis RUE DVT (no longer requires anticoagulation) HTN anxiety/depression PSHx: Cholecystectomy Hysterectomy Endometrial ablation FHx: reviewed and noncontributory SHx: Denies T/E/D Meds: See medicine reconciliation Medication List Active Medications Ordered Lactated Ringers 1,000 mL: 99 9 ml/hr, IV, Stop: 01/17/16 20:55:00 PSYCHOLOGICAL AIDE. sodium chloride: 10 mL, IVP, PRN, PRN: Line Flush . Prescribed dicyclomine: 10 mg, 1 cap, PO, TID, for 3 day, 9 cap, 0 Refill(s). famotidine: 40 mg, 1 tab, PO, Daily, 30 tab, 3 Re fill(s). pantoprazole: 40 mg, 1 tab, PO, Daily, 30 tab, 0 Refill(s). Documented aripiprazole: Substitution Allowed. buPROPion: 100 mg, 1 tab, PO, BID. QUEtiapine: 50 mg, 1 tab, PO, Daily, 60 tab, 0 Re fill(s). Medications Inactivated in the Last 72 Hours acetaminophen-hydrocodone: 1 tab, PO, ONCE. acetaminophen-hydrocodone: 1 tab, PYXIS, ONCE. acetaminophen-hydrocodone: 1 tab, PYXIS, ONCE. hydromorphone: 1 mg, 1 mL, IVP, ONCE. hydromorphone: 1 mg, 1 mL, PYXIS, ONCE. iohexol: 100 mL, PYXIS, ONCE. ketOROLAC: 30 mg, IVP, ONCE. ketOROLAC: 30 mg, 1 mL, PYXIS, ONCE. morphine Sulfate: 4 mg, 1 mL, IVP, ONCE. morphine Sulfate: 4 mg, 1 mL, PYXIS, ONCE. Allergies: NKDA ROS: See HPI. All other systems reviewed by myself are negative u nless noted above. Physical Exam: Vitals Tmp(F) Pulse BP RR SpO2 FIO2 12/17 22:22 98.5 88 145/95 20 99 --- 12/17 19:10 ---- 96 160/102 18 100 --- 12/17 14:09 98.5 104 146/99 20 99 --- 24 Hr Tmax: 98.5F (36.94c) at 12/17 22:2 2 Vital Signs are the last 5 in the past 48 hours. General: NAD, nontoxic appearing HEENT: NCAT, PERRL, MMM, oropharynx is clear Cardiovascular: RRR, S1S2 Respiratory: CTAB Abdomen: soft, +BS, ND, TTP over b/l lower abdomen and supra pubic area Extremities: no b/l LE edema Skin: no rashes Neurologic: comprehension and speech intact, CN III-XII ray sly intact Musculoskeletal: symmetric strength in all extremities Rectal/: deferred Labs: 24hr Labs 12/17 1426 Sodium Lvl 140 Potassium Lvl 3.7 Chloride Lvl 105 CO2 29 AGAP 9.7 L Glucose Lvl 108 H Creatinine Lvl 0.64 BUN 12 B/C Ratio 19 Total Protein 7.6 Albumin Lvl 3.4 L Globulin 4.2 A/G Ratio 0.8 Calcium Lvl 8.2 L ALT 144 H AST 33 Alk Phos 132 Bili Total 0.4 eGFR 111 Lipase Lvl 140 WBC 14.4 H RBC 4.15 L Hgb 12.2 Hct 36.4 MCV 87.9 MCH 29.4 MCHC 33.4 RDW 15.5 H Platelet 319 MPV 8.4 Segs 87.9 H Monocytes 3.3 Lymphocytes 8.1 L Eosinophils 0.2 Basophils 0.5 Segs-Bands # 12.7 H Lymphocytes # 1.2 Monocytes # 0.5 Basophils # 0.1 UA Color Yellow UA Turbidity Clear UA Spec Grav 1.015 UA pH 6.0 UA Protein Negative UA Glucose Negative UA Ketones Negative UA Bili Negative UA Blood Trace UA Urobilinogen 2.0 H UA Nitrite Negative UA Leuk Est Negative UA RBC 6-10 UA WBC 0-2 UA Bacteria Occasional UA Sq Epi Many Micro: none Imaging: ED Abdomen/Pelvis IV contrast only CT 12/18/15 16:59:25 IMPRESSION: Fatty infiltration of liver and pancreas . Status post cholecystectomy. No significant interval change from previous study of 08/13/2015. SL: [id number] Signed By: Jaime Arguello MD Pelvis w Transvag and Pelvis Doppler US 12/18/15 19:13:27 IMPRESSION: 1. Unremarkable sonographic examination of the ovaries with small bilateral follicular cysts visualized. 2. Hysterectomy. SL: [id number] Signed By: Chilo Soares MD Assessment and Plan: This is a 40 yo who p/w lower abdominal and pelvic pain, similar to her prior episodes. She has leukocytosis but no evidence of infection. CT abd and pelvic u/s are negative (prior workups also negative). # intractable lower abdominal and pelvic pain: NPO, iv fluids, pain control, gyncology consult, repeat CBC given her leukocytosis, monitor vitals # h/o anxiety/depression/GERD/HTN: c/w home regimen Prophylaxis: subQ heparin Diet: NPO Extracted from:Title: Clinical Document 07/30/2015 [place] Author: Harsha Mancini MD Date: 07/29/15 History and Physical Attending: Harsha Mancini MD Service: Emergency Medicine Service Code status: None Specified=FULL CODE Reason for Admission: INTRACTABLE VOMITING Working DRG: None Documented Isolation: None Documented Consulting Physicians: (none on file) CC: stomach pain HPI: This is a 39 yo w/ below PMHx who p /w 3 day h/o progresively worsening abdominal pain. Pain is located along L side of abdomen around umbilical level, no radiation, described as sharp, constant. No thing aggravates or alleviates the pain. N/V multiple times. Denies bowel changes, SOB, CP, fevers/chills. No unusual foods eaten, nobody around her has thses symptoms. Had abdominal pain and N/V in 201 3 but pt thinks this is different than h er prior episodes then. Had EGD in 12/2012 which showed signficant gastritis along w/ possible esophagitis and GERD. PMHx: GERD chronic gastritis endometriosis RUE DVT (no longer requires anticoagulation) HTN anxiety/depression PSHx: Cholecystectomy Hysterectomy Endometrial ablation FHx: reviewed and noncontributory SHx: Denies T/E/D Meds: See medicine reconciliation Medication List Active Medications Ordered sodium chloride: 10 mL, IVP, PRN, PRN: Line Flush . Prescribed famotidine: 40 mg, 1 tab, PO, Daily, 30 tab, 3 Re fill(s). tramadol: 50 mg, 1 tab, PO, BID, for 15 day, 30 t ab, 0 Refill(s). Documented aripiprazole: Substitution Allowed. buPROPion: 100 mg, 1 tab, PO, BID. Medications Inactivated in the Last 72 Hours dicyclomine: 20 mg, 2 mL, PYXIS, ONCE. dicyclomine: 20 mg, 2 mL, IM, ONCE. GI cocktail: 30 mL, PYXIS, ONCE. GI cocktail: 30 mL, PO, ONCE. iohexol: 100 mL, PYXIS, ONCE. metoclopramide: 10 mg, 2 mL, PYXIS, ONCE. metoclopramide: 10 mg, 2 mL, IVP, ONCE. morphine Sulfate: 4 mg, 1 mL, PYXIS, ONCE. morphine Sulfate: 4 mg, 1 mL, IVP, ONCE. morphine Sulfate: 4 mg, 1 mL, PYXIS, ONCE. morphine Sulfate: 4 mg, 1 mL, IVP, ONCE. morphine Sulfate: 4 mg, 1 mL, PYXIS, ONCE. morphine Sulfate: 4 mg, 1 mL, IVP, ONCE. ondansetron: 4 mg, 2 mL, PYXIS, ONCE. ondansetron: 4 mg, 2 mL, IVP, ONCE. ondansetron: 4 mg, 2 mL, PYXIS, ONCE. ondansetron: 4 mg, 2 mL, IVP, ONCE. promethazine: 25 mg, 1 mL, PYXIS, ONCE. promethazine: 25 mg, 1 mL, IM, ONCE. sodium chloride: 10 mL, IVP, PRN, PRN: Line Flush. Sodium Chloride 0.9% IV: 1,000 mL, PYXIS, ONCE. Sodium Chloride 0.9% IV: 1,000 mL, 2,000 ml/hr, IV, O NCE. Sodium Chloride 0.9% IV: 1,000 mL, PYXIS, ONCE. Sodium Chloride 0.9% IV: 1,000 mL, 2,000 ml/hr, IV, O NCE. Allergies: NKDA ROS: See HPI. All other systems reviewed by myself are negative u nless noted above. Physical Exam: Vitals Tmp(F) Pulse BP RR SpO2 FIO2 07/28 19:28 97.8 104 124/76 22 99 --- 07/28 16:02 98.4 109 118/77 18 98 --- 24 Hr Tmax: 98.4F (36.89c) at 07/28 16:0 2 Vital Signs are the last 5 in the past 48 hours. General: NAD, nontoxic appearing HEENT: NCAT, PERRL, MMM, no JVD Cardiovascular: RRR, S1S2 Respiratory: CTAB Abdomen: soft, +BS, ND, mildly TTP over L side of abdomen Extremities: no b/l LE edema Skin: no rashes Neurologic: comprehension and speech intact, CN III-XII ray sly intact Musculoskeletal: symmetric strength in all extremities Rectal/: deferred Labs: 24hr Labs 07/28 1756 UA Color Yellow UA Turbidity Clear UA Spec Grav <=1.005 UA pH 6.5 UA Protein Negative UA Glucose Negative UA Ketones Negative UA Bili Negative UA Blood Negative UA Urobilinogen 0.2 UA Nitrite Negative UA Leuk Est Negative UA RBC 0-2 UA WBC 0-2 UA Bacteria Occasional UA Sq Epi Few 07/28 1748 Sodium Lvl 137 Potassium Lvl 3.6 Chloride Lvl 103 CO2 28 AGAP 9.6 L Glucose Lvl 94 Creatinine Lvl 0.80 BUN 6 L B/C Ratio 8 Total Protein 8.0 Albumin Lvl 3.6 Globulin 4.4 H A/G Ratio 0.8 Calcium Lvl 8.3 L ALT 33 AST 21 Alk Phos 122 Bili Total 0.3 eGFR 93 Lipase Lvl 134 WBC 10.9 H RBC 4.12 L Hgb 12.0 Hct 36.6 MCV 88.9 MCH 29.2 MCHC 32.8 RDW 14.2 Platelet 307 MPV 9.4 Segs 64.0 Monocytes 6.4 Lymphocytes 27.6 Eosinophils 1.5 Basophils 0.5 Segs-Bands # 7.0 Lymphocytes # 3.0 Monocytes # 0.7 Eosinophils # 0.2 Basophils # 0.1 Micro: none Imaging: CT abd/pelvis: No acute intra-abdominal/pelvic abnormality. Assessment and Plan: This is a 39 yo who p/w L sided abdominal pain and N/V. Placed in observation because she cannot tolerate po and has intractable N/V. Has very mild leukocytosis but low suspicion for bacterial infection. # viral gastroenteritis and gastritis: iv fluids, PPI , pain and nausea control # h/o HTN/depression: c/w home regimen Prophylaxis: ambulation Diet: liquid Harsha Live Moiseist Plan of Care No Data Provided for This Section Social History Social History Date Source Social History TypeResponse 07/21/2018 [facility] Alcohol Never, Previous treatment: None. Smoking Status Never smoker; Previous treatment: None; Ready to change: No; Concerns about tobacco use in household: No; Exposure to Tobacco Smoke None; Cigarette Smoking Last 365 Days No; Reg Smoking Cessation Counseling No entered on: 07/21/18 Social History TypeResponse 07/21/2018 [facility] Alcohol Never, Previous treatment: None. Substance Abuse Use: None. Smoking Status Never smoker; Previous treatment: None; Ready to change: No; Concerns about tobacco use in household: No; Exposure to Tobacco Smoke None; Cigarette Smoking Last 365 Days No; Reg Smoking Cessation Counseling No entered on: 05/13/19 Social History TypeResponse 06/26/2016 [facility] Smoking Status Never smoker; Previous treatment: None; Concerns about tobacco use in household: No; Exposure to Tobacco Smoke None; Cigarette Smoking Last 365 Days No; Reg Smoking Cessation Counseling No Family History No Data Provided for This Section Advance Directives No Data Provided for This Section Functional Status No Data Provided for This Section
--- OUTSIDE RECORDS SUMMARY | 2019-07-31 15:55 | XMS REPORT | Summary of Care ---
:1975 Author Organization [facility] ospital Address [address] [place], [place] [address]- Encounter HQ Encntr_avery(FIN) [phone] Date(s): 05/15/19 - 05/16/19 [facility] [place] [facility] [address] [place] [address]- Discharge Disposition: Home or Self Care Attending Physician: Jarrod Holm MD Admitting Physician: Jarrod Holm MD Vital Signs Most recent to oldest 1 2 3 [Reference Range]: Height 165.1 cm 165.1 cm (05/14/19 9:00 AM) (05/13/19 7:12 PM) Temperature Oral [96.4-99.1 98.1 DegF 98.1 DegF 98.1 DegF DegF] (05/16/19 3:27 PM) (05/16/19 10:33 AM) (05/16/19 8: 00 AM) Blood Pressure [90-140/60-90 127/75 mmHg 141/78 mmHg 142 /79 mmHg mmHg] (05/16/19 3:27 PM) *HI* *HI* (05/16/19 10:33 AM) (05/16/19 8:00 AM) Respiratory Rate [14-20 BRMIN] 16 BRMIN 16 BRMIN 1 6 BRMIN (05/15/19 4:06 PM) (05/15/19 11:59 AM) (05/15/19 7: 47 AM) Peripheral Pulse Rate [60-100 84 bpm 94 bpm 79 bpm bpm] (05/16/19 3:27 PM) (05/16/19 10:33 AM) (05/16/19 8: 00 AM) Weight 79.545 kg 79.545 kg (05/14/19 9:00 AM) (05/13/19 7:12 PM) Body Mass Index 29.18 m2 29.18 m2 (05/14/19 9:00 AM) (05/13/19 7:12 PM) Problem List Condition Effective Dates Status Health Status Informant Abdominal pain(Confirmed) Active Abdominal pain - cause Active unknown(Confirmed) Cholecystectomy(Confirmed) Active Depression(Confirmed) Resolved DVT - Deep vein Resolved thrombosis(Confirmed)1 Chronic GERD(Confirmed) Resolved HTN - Hypertension(Confirmed) Active Hysterectomy(Confirmed) Active Nausea(Confirmed) Active Nausea and vomiting(Confirmed) Active Pain in right arm(Confirmed) Active Pancreatitis(Confirmed) Resolved Restless leg syndrome(Confirmed) Resolved Vomiting(Confirmed) Active 1right upper arm Allergies, Adverse Reactions, Alerts Substance Reaction Severity Status morphine Active Medications acetaminophen 650 mg, 2 tab, Route: PO, Drug form: TAB, Q4H, Dosing Weight 79.545, kg, PRN Pain 1-3/Temp > 100.4 F, Start date: 05/13/19 19:52:00 CDT, Duration: 30 day, Stop date: 06/12/19 19:51:00 CDT, 0 Notes: Do not exceed 4 gm/day. (Same as: Tylenol) Start Date: 05/13/19 Stop Date: 05/16/19 Status: DiscontinuedAtivan 0.5 mg, 0.25 mL, Route: IVP, Drug form: INJ, ONCE, Dosing Weight 79.545, kg, PRN Anxiety, Start date: 05/13/19 20:34:00 CDT, 0 Notes: (Same as: Ativan) Start Date: 05/13/19 Stop Date: 05/13/19 Status: CompletedDextrose 50% Syringe (D50W) 12.5 gm, 25 mL, Route: IVP, Drug Form: INJ, Dosing Weight 79.545, kg, PRN, PRN Blood Glucose Results, Start date: 05/13/19 19:52:00 CDT, Duration: 30 day, Stop date: 06/12/19 19:51:00 CDT, 0 Start Date: 05/13/19 Stop Date: 05/16/19 Status: DiscontinuedDextrose 50% Syringe (D50W) 25 gm, 50 mL, Route: IVP, Drug Form: INJ, Dosing Weight 79.545, kg, PRN, PRN Blood Glucose Results, Start date: 05/13/19 19:52:00 CDT, Duration: 30 day, Stop date: 06/12/19 19:51:00 CDT, 0 Start Date: 05/13/19 Stop Date: 05/16/19 Status: Discontinueddicyclomine 10 mg, 1 cap, Route: PO, Drug form: CAP, TID, Dosing Weight 79.545, kg, Priority: NOW, Start date: 05/13/19 19:56:00 CDT, Duration: 30 day, Stop date: 06/12/19 17:00:00 CDT, 0 Notes: (Same as: Bentjeremy) Start Date: 05/13/19 Stop Date: 05/16/19 Status: Discontinueddicyclomine 10 mg, 1 cap, Route: PO, Drug form: CAP, QID, Dosing Weight 79.545, kg, PRN Cramps, Start date: 05/14/19 14:31:00 CDT, Duration: 2 day, Stop date: 05/16/19 14:30:00 CDT, 0 Notes: (Same as: Bentyl) Start Date: 05/14/19 Stop Date: 05/16/19 Status: Completeddocusate 100 mg, 1 cap, Route: PO, Drug form: CAP, BID, Dosing Weight 79.545, kg, PRN as needed for constipation, Start date: 05/13/19 19:52:00 CDT, Duration: 30 day, Stop date: 06/12/19 19:51:00 CDT, 0 Notes: (Same as: Colace) (Do Not Crush) Start Date: 05/13/19 Stop Date: 05/16/19 Status: Discontinuedglucagon 1 mg, Route: IM, Drug form: PDR/INJ, PRN, Dosing Weight 79.545, kg, PRN Blood Glucose Results, Startdate: 05/13/19 19:52:00 CDT, Duration: 30 day, Stop date: 06/12/19 19:51:00 CDT, 0 Start Date: 05/13/19 Stop Date: 05/16/19 Status: Discontinuedhydrochlorothiazide 25 mg oral tablet 12.5 mg, 1 tab, Route: PO, Drug form: TAB, Daily, Start date: 05/14/19 9:00:00 CDT, Duration: 30 day, Stop date: 06/12/19 9:00:00 CDT, 0 Notes: (Same as: Hydrodiuril). Give with food. Start Date: 05/14/19 Stop Date: 05/16/19 Status: Discontinuedhydrochlorothiazide-lisinopril 12.5 mg-10 mg oral tablet 1 tab, PO, Daily, # 30 tab, 0 Refill(s) Start Date: 05/13/19 Status: Orderedhydrochlorothiazide-lisinopril 12.5 mg-10 mg oral tablet 1 tab, Route: PO, Drug Form: TAB, Dosing Weight 79.545, kg, Daily, Start date: 05/14/19 9:00:00 CDT,Duration: 30 day, Stop date: 06/12/19 9:00:00 CDT Start Date: 05/14/19 Stop Date: 05/13/19 Status: Deletedhydromorphone 0.5 mg, 0.5 mL, Route: IVP, Drug form: INJ, Q4H, Dosing Weight 79.545, kg, PRN Pain Score 7-10, Start date: 05/13/19 19:52:00 CDT, Duration: 5 day, Stop date: 05/18/19 19:51:00 CDT, 0 Notes: Same as: Dilaudid Start Date: 05/13/19 Stop Date: 05/16/19 Status: DiscontinuedLactated Ringers IV 1,000 mL 1,000 mL, Rate: 75 ml/hr, Infuse over: 13.3 hr, Route: IV, Dosing Weight 79.545 kg, Total Volume: 1,000, Start date: 05/13/19 19:52:00 CDT, Duration: 30 day, Stop date: 06/12/19 19:51:00 CDT, 1.93, m2,0 Start Date: 05/13/19 Stop Date: 05/16/19 Status: Discontinuedlinaclotide PO, Daily, 0 Refill(s) Start Date: 05/13/19 Status: Orderedlisinopril 10 mg, 2 tab, Route: PO, Drug form: TAB, Daily, Start date: 05/14/19 9:00:00 CDT, Duration: 30 day, Stop date: 06/12/19 9:00:00 CDT, 0 Notes: (Same as: Prinivil, Zestril) Start Date: 05/14/19 Stop Date: 05/16/19 Status: Discontinuedmelatonin 3 mg, 1 tab, Route: PO, Drug form: TAB, Bedtime, Dosing Weight 79.545, kg, PRN Insomnia, Start date:05/13/19 19:52:00 CDT, Duration: 30 day, Stop date: 06/12/19 19:51:00 CDT, 0 Notes: (Same as: Melatonin) Start Date: 05/13/19 Stop Date: 05/16/19 Status: Discontinuedondansetron 4 mg, 2 mL, Route: IVP, Drug form: INJ, Q8H, Dosing Weight 79.545, kg, PRN Nausea & Vomiting, Start date: 05/13/19 19:52:00 CDT, Duration: 30 day, Stop date: 06/12/19 19:51:00 CDT, 0 Notes: (Same as: Zofran) MEDICATION WASTE Product Size: 4 mgProduct Wasted: ___ mg Start Date: 05/13/19 Stop Date: 05/16/19 Status: DiscontinuedPhenergan + Sodium Chloride 0.9% IV 50 mL 12.5 mg, 0.5 mL, Route: IVPB, ONCE, Dosing Weight 79.545, kg, PRN Nausea & Vomiting, Start date:05/14/19 5:21:00 CDT, 0 Notes: Do not give IV push. (Same as: Phenergan) Start Date: 05/14/19 Stop Date: 05/14/19 Status: CompletedProtonix 40 mg, 1 tab, Route: PO, Drug form: ECTAB, Daily, Dosing Weight 79.545, kg, Start date: 05/14/19 9:00:00 CDT, Duration: 30 day, Stop date: 06/12/19 9:00:00 CDT, 0 Notes: Tablet should not be chewed or crushed.(Same as: Protonix) Start Date: 05/14/19 Stop Date: 05/16/19 Status: DiscontinuedProtonix 40 mg oral enteric coated tablet 40 mg = 1 tab, PO, Daily, # 30 tab, 0 Refill(s), Pharmacy: [id number] Start Date: 05/16/19 Stop Date: 06/15/19 Status: OrderedSaline Flush 0.9% 10 ml, Route: IVP, Drug Form: INJ, Dosing Weight 79.545, kg, PRN, PRN Line Flush, Start date: 05/13/19 19:52:00 CDT, Duration: 30 day, Stop date: 06/12/19 19:51:00 CDT, 0 Notes: (Same as: BD Posiflush) Start Date: 05/13/19 Stop Date: 05/16/19 Status: DiscontinuedZofran 4 mg, 1 tab, Route: PO, Drug form: TAB, ONCE, Dosing Weight 79.545, kg, Start date: 05/16/19 18:48:00 CDT, Stop date: 05/16/19 18:48:00 CDT, 0 Notes: (Same as: Zofran) Start Date: 05/16/19 Stop Date: 05/16/19 Status: CompletedZofran ODT 4 mg oral tablet, disintegrating 4 mg = 1 tab, PO, BID, PRN Nausea and Vomiting, Dissolve tab under tongue, # 20 tab, 0 Refill(s), Pharmacy: [id number] Start Date: 05/16/19 Stop Date: 05/23/19 Status: Ordered Results Most recent to oldest [Reference Range]: 1 2 Procalcitonin Lvl [0.00-0.10 ng/mL] <0.05 ng/mL (05/15/19 9:32 AM) Neutrophils # [1.5-8.1 K/CMM] 6.3 K/CMM 5.8 K/CMM (05/15/19 9:32 AM) (05/14/19 3:08 AM) Lymphocytes # [1.0-5.5 K/CMM] 2.2 K/CMM 2.8 K/CMM (05/15/19 9:32 AM) (05/14/19 3:08 AM) Monocytes # [0.0-0.8 K/CMM] 0.8 K/CMM 0.7 K/CMM (05/15/19 9:32 AM) (05/14/19 3:08 AM) Eosinophils # [0.0-0.5 K/CMM] 0.2 K/CMM 0.2 K/CMM (05/15/19 9:32 AM) (05/14/19 3:08 AM) Bili Indirect [0.0-1.0 mg/dL] 0.6 mg/dL (05/14/19 3:08 AM) eGFR 118 mL/min/1.73m2 1 113 mL/min/1.73m2 2 *NA* *NA* (05/15/19 9:32 AM) (05/14/19 3:08 AM) UDS Note See Note (05/16/19 7:31 PM) A/G Ratio [0.7-1.6] 0.8 0.8 (05/15/19 9:32 AM) (05/14/19 3:08 AM) A-1-AT [83-199 mg/dL] 102 mg/dL (05/14/19 10:50 PM) Albumin Lvl [3.5-5.0 g/dL] 3.1 g/dL 3.1 g/dL *LOW* *LOW* (05/15/19 9:32 AM) (05/14/19 3:08 AM) Alk Phos [39-136 unit/L] 111 unit/L 120 unit/L (05/15/19 9:32 AM) (05/14/19 3:08 AM) ALT [0-65 unit/L] 109 unit/L 153 unit/L *HI* *HI* (05/15/19 9:32 AM) (05/14/19 3:08 AM) AMA Ab Scr [Negative] Negative (05/14/19 10:50 PM) U Amph Scr [Negative] Negative *NA* (05/16/19 7:31 PM) CHANTEL [Negative] Negative (05/14/19 10:50 PM) AGAP [10.0-20.0 mEq/L] 7.7 mEq/L 4.7 mEq/L *LOW* *LOW* (05/15/19 9:32 AM) (05/14/19 3:08 AM) SMA Screen [Negative] Negative (05/14/19 10:50 PM) AST [0-37 unit/L] 38 unit/L 78 unit/L *HI* *HI* (05/15/19 9:32 AM) (05/14/19 3:08 AM) B/C Ratio [6-25] 12 (05/15/19 9:32 AM) U Jyothi Scr [Negative] Negative *NA* (05/16/19 7:31 PM) Basophils [0.0-1.0 %] 0.4 % 0.4 % (05/15/19 9:32 AM) (05/14/19 3:08 AM) U Benzodiaz Scr [Negative] Negative *NA* (05/16/19 7:31 PM) BUN [7-22 mg/dL] 6 mg/dL 5 mg/dL *LOW* *LOW* (05/15/19 9:32 AM) (05/14/19 3:08 AM) Calcium Lvl [8.5-10.5 mg/dL] 8.5 mg/dL 8.7 mg/dL (05/15/19 9:32 AM) (05/14/19 3:08 AM) Ceruloplasmin [20-60 mg/dL] 30 mg/dL (05/14/19 10:50 PM) Chloride Lvl [95-109 mEq/L] 106 mEq/L 107 mEq/L (05/15/19 9:32 AM) (05/14/19 3:08 AM) CO2 [24-32 mEq/L] 30 mEq/L 33 mEq/L (05/15/19 9:32 AM) *HI* (05/14/19 3:08 AM) U Cocaine Scr [Negative] Negative *NA* (05/16/19 7:31 PM) Creatinine Lvl [0.50-1.40 mg/dL] 0.50 mg/dL 0.57 mg /dL (05/15/19 9:32 AM) (05/14/19 3:08 AM) Bili Direct [0.0-0.3 mg/dL] 0.2 mg/dL (05/14/19 3:08 AM) Eosinophils [0.0-4.0 %] 1.9 % 2.4 % (05/15/19 9:32 AM) (05/14/19 3:08 AM) Globulin [2.7-4.2 g/dL] 4.0 g/dL 4.0 g/dL (05/15/19 9:32 AM) (05/14/19 3:08 AM) Glucose Lvl [70-99 mg/dL] 90 mg/dL 95 mg/dL (05/15/19 9:32 AM) (05/14/19 3:08 AM) Hep Bs Ag [Negative] Negative *NA* (05/14/19 10:50 PM) Hct [36.0-48.0 %] 33.1 % 34.7 % *LOW* *LOW* (05/15/19 9:32 AM) (05/14/19 3:08 AM) Hep C Ab [Negative] Negative *NA* (05/14/19 10:50 PM) Hgb [12.0-16.0 g/dL] 11.2 g/dL 11.7 g/dL *LOW* *LOW* (05/15/19 9:32 AM) (05/14/19 3:08 AM) Potassium Lvl [3.5-5.1 mEq/L] 3.7 mEq/L 3.7 mEq/L (05/15/19 9:32 AM) (05/14/19 3:08 AM) Lymphocytes [20.0-40.0 %] 23.3 % 29.7 % (05/15/19 9:32 AM) (05/14/19 3:08 AM) MCH [27.0-31.0 pg] 30.5 pg 30.5 pg (05/15/19 9:32 AM) (05/14/19 3:08 AM) MCHC [32.0-36.0 g/dL] 33.8 g/dL 33.8 g/dL (05/15/19 9:32 AM) (05/14/19 3:08 AM) MCV [80.0-98.0 fL] 90.2 fL 90.2 fL (05/15/19 9:32 AM) (05/14/19 3:08 AM) Magnesium Lvl [1.8-2.4 mg/dL] 2.2 mg/dL (05/14/19 3:08 AM) Monocytes [2.0-12.0 %] 7.9 % 7.1 % (05/15/19 9:32 AM) (05/14/19 3:08 AM) MPV [7.4-10.4 fL] 9.4 fL 9.2 fL (05/15/19 9:32 AM) (05/14/19 3:08 AM) Sodium Lvl [135-145 mEq/L] 140 mEq/L 141 mEq/L (05/15/19 9:32 AM) (05/14/19 3:08 AM) U Opiate Scr [Negative] Positive *ABN* (05/16/19 7:31 PM) U Phencyclidine Scr [Negative] Negative *NA* (05/16/19 7:31 PM) Phosphorus [2.5-4.5 mg/dL] 2.5 mg/dL (05/14/19 3:08 AM) Platelet [133-450 K/CMM] 229 K/CMM 237 K/CMM (05/15/19 9:32 AM) (05/14/19 3:08 AM) Segs [45.0-75.0 %] 66.5 % 60.4 % (05/15/19 9:32 AM) (05/14/19 3:08 AM) Total Protein [6.4-8.4 g/dL] 7.1 g/dL 7.1 g/dL (05/15/19 9:32 AM) (05/14/19 3:08 AM) RBC [4.20-5.40 M/CMM] 3.67 M/CMM 3.85 M/CMM *LOW* *LOW* (05/15/19 9:32 AM) (05/14/19 3:08 AM) RDW [11.5-14.5 %] 13.1 % 12.9 % (05/15/19 9:32 AM) (05/14/19 3:08 AM) Bili Total [0.2-1.3 mg/dL] 0.6 mg/dL 0.8 mg/dL (05/15/19 9:32 AM) (05/14/19 3:08 AM) U Cannab Scr [Negative] Negative *NA* (05/16/19 7:31 PM) UA Bili [Negative] Negative *NA* (05/14/19 12:34 PM) UA Blood [Negative] Negative (05/14/19 12:34 PM) UA Color [Yellow] Yellow *NA* (05/14/19 12:34 PM) UA Glucose [Negative mg/dL] Negative mg/dL *NA* (05/14/19 12:34 PM) UA Ketones [Negative mg/dL] 20 mg/dL *ABN* (05/14/19 12:34 PM) UA Leuk Est [Negative] Negative (05/14/19 12:34 PM) UA Nitrite [Negative] Negative (05/14/19 12:34 PM) UA pH [5.0-8.0] 8.0 (05/14/19 12:34 PM) UA Protein [Negative mg/dL] Negative mg/dL (05/14/19 12:34 PM) UA RBC [0-2 /HPF] 2 /HPF (05/14/19 12:34 PM) UA Spec Grav [<=1.030] 1.014 (05/14/19 12:34 PM) UA Sq Epi [Few /LPF] Occasional /LPF *NA* (05/14/19 12:34 PM) UA Turbidity [Clear] Clear (05/14/19 12:34 PM) UA Urobilinogen [0.1-1.0 mg/dL] 4.0 mg/dL *HI* (05/14/19 12:34 PM) UA WBC [0-5 /HPF] <1 /HPF (05/14/19 12:34 PM) WBC [3.7-10.4 K/CMM] 9.5 K/CMM 9.6 K/CMM (05/15/19 9:32 AM) (05/14/19 3:08 AM) 1Result Comment: The eGFR is calculated using the CKD-EPI formula. In most young, healthy individualsthe eGFR will be >90 mL/min/1.73m2. The eGFR declines with age. An eGFR of 60-89 may be normal insome populations, particularly the elderly, for whom the CKD-EPI formula has not been extensively validated. Use of the eGFR is not recommended in the following populations: Individuals with unstable creatinine concentrations, including patients and those with serious co-morbid conditions. Patients with extremes in muscle mass or diet. The data above are obtained from the National Kidney Disease Education Program (NKDEP) which additionally recommends that when the eGFR is used in patients with extremes of body mass index for purposesof drug dosing, the eGFR should be multiplied by the estimated BMI.2Result Comment: The eGFR is calculated using the CKD-EPI formula. In most young, healthy individualsthe eGFR will be >90 mL/min/1.73m2. The eGFR declines with age. An eGFR of 60-89 may be normal insome populations, particularly the elderly, for whom the CKD-EPI formula has not been extensively validated. Use of the eGFR is not recommended in the following populations: Individuals with unstable creatinine concentrations, including patients and those with serious co-morbid conditions. Patients with extremes in muscle mass or diet. The data above are obtained from the National Kidney Disease Education Program (NKDEP) which additionally recommends that when the eGFR is used in patients with extremes of body mass index for purposesof drug dosing, the eGFR should be multiplied by the estimated BMI. Immunizations Given and Recorded Vaccine Date Status Refusal Reason pneumococcal 23-valent vaccine 12/24/15 Given influenza virus vaccine, inactivated 12/20/15 Given Procedures Procedure Date Related Diagnosis Body Site Status Cholecystectomy Completed Endometrial ablation Complet ed Hysterectomy Completed Social History Social History Type Response Alcohol Never, Previous treatment: N one. Substance Abuse Use: None. Smoking Status Never smoker; Previous treat ment: None; Ready to change: No; Concerns about tobacco use in household: No; Exposure to Tobacco Smoke None; Cigarette Smoking Last 365 Days No; Reg Smoking Cessation Counseling No entered on: 05/13/19 Assessment and Plan Extracted from: Title: Clinical Document Author: Maurice Cruz MD Date: Progress Note Gastroenterology and Hepatology ASSESSMENT /PLAN: 1. Right upper quadrant/right CVA abdom inal pain -work-up negative for biliary or urinary tract etiology. Seems fairly superficial, question referred from thoracic spine. X-ray thoracic spine unrevealing. 2. Abnormal LFTs they have been normal in the past, likely intercurrent. No evidence of choledocholithiasis on MRCP. Sphincter of Oddi dysfunction is a consideration. 3. GERD, gastroparesis. Nausea vomitin g likely related to latter. 4. Chronic left upper quadrant pain RECOMMENDATIONS AND PLAN: PPI daily. From GI viewpoint may be discharged if p ain can be controlled with medication and subsequent outpatient follow-up. Should resume Linzess as outpatient. Diet as tolerated. Abnormal LFTs can be followed as outpati ent as well. Patient symptoms appear functional in [...] swelling 4) Eyes: (-) vision changes, (-) bleedin g 5) Neuro: (-) weakness, (-) headaches 6) Resp: (-) dyspnea on exertion, (-) co ugh 7) Cardio: (-) chest pain, (-) orthopnea 8) GI: (-) blood in stool, (-) reflux 9) : (-) dysuria, (-) bloody discharge 10) Endo: (-) heat intolerance, (-) cold intolerance OBJECTIVE: Vitals: See below General: Alert , no distress, CVS: s1s2 RRR Resp: CTA Bilaterally Abd : Soft, NT, ND , BS +, no hepatosple nomegaly Ext : no edema, no clubbing or cyanosis. SAFETY SPEC: No gross motor/sensory defects Psych: A&O x3 [...] mg TAB 10 mg 2 tab, PO, Da barbara pantoprazole 40 mg ECT 40 mg 1 tab, PO, Daily Continuous: (1) Lactated Ringers 1,000 mL 1,000 mL, IV, 75 ml/hr PRN: (9) acetaminophen 325 mg TABLET 650 mg 2 ta b, PO, Q4H Dextrose 50% 50 ml INJ syringe 12.5 gm 25 mL, IVP, PRN Dextrose 50% 50 ml INJ syringe 25 gm 50 mL, IVP, PRN docusate sodium 100 mg CAP 100 mg 1 cap , PO, BID glucagon recombinant 1 mg PDR 1 mg, IM, PRN HYDROmorphone 0.5mg/0.5mL syringe 0.5 m g 0.5 mL, IVP, Q4H melatonin 3 mg TAB 3 mg 1 tab, PO, Bedt mathew ondansetron 4 mg/2ml INJ VL 4 mg 2 mL, IVP, Q8H sodium chloride 0.9% 10 ml flush syr BD 10 ml, IVP, PRN Labs (Last four charted values) WBC 9.5 (MAY 14) 9.6 () Hgb L 11.2 (MAY 14) L 1 1.7 (MAY 13) Hct L 33.1 (MAY 14) L 3 4.7 (MAY 13) Plt 229 (MAY 14) 237 () Na 140 (MAY 14) 141 () K 3.7 (MAY 14) 3.7 () CO2 30 (MAY 14) H 33 () Cl 106 (MAY 14) 107 () Cr 0.50 (MAY 14) 0.57 (MAY 13) BUN L 6 (MAY 14) L 5 () Glucose Random 90 (MAY 14) 95 () Mg 2.2 (MAY 13) Phos 2.5 (MAY 13) Ca 8.5 (MAY 14) 8.7 (M AR ) Extracted from: Title: Clinical Document Author: Jeronimo Padron MD Date: 05/14/19 Consult Note Gastroenterology and Hepatology Reason for Consult: Abdominal pain, dilated bile duct, possi ble choledocholithiasis Referring MD: Jasmin Ball MD IMPRESSION: 1. Right upper quadrant/right CVA abdom inal pain, which is unlikely to be biliary given MRI report. Need to rule out ureteric calculus/pyelonephritis. Acute appendicitis less likely if indeed CT scan at other facility did not show any evid ence for it. 2. Abnormal LFTs uncertain if acute or chronic. No evidence of choledocholithiasis on MRCP. Chronic hepatitides or sphincter of Oddi dysfunction are considerations 3. GERD, gastroparesis. Nausea vomitin g likely related to latter. 4. Chronic left upper quadrant pain RECOMMENDATIONS AND PLAN: 1. Obtain outside CT scan report and ul trasound report 2. UA reflex to culture here. Antibiot ics if indicated for UTI. May need renal protocol CT here. 3. Serologies for chronic liver disease s and monitor LFTs for now. 4. P.o. clear liquids.. Continue panto prazole. Further recommendation to follow. Plan discussed with patient, nurse and attending. Thank you for the consultation. HPI: 43-year-old lady, ( anthony Tuttle) with his tory of GERD, gastroparesis, (recently saw my associate Dr. Cruz as an outpatient for this as well as chronic left upper quadrant abdominal pains and constipatio n ); is s/p cholecystectomy several year s ago, presented to [facility] ER with 3-day history of [...] family history of liver disease. COVID 19 screen denies recent travel, no ill contacts, denies fever, sore throat, cough, dyspnea. PMH: Hypertension. Gastroparesis. Nephrolithiasis. GERD. DVT. Depression. Restless leg syndrome. Pancreatitis PSH: Cholecystectomy Hysterectomy Endometrial ablation PSYCHO-SOCIAL: Denies tobacco, alcohol or recreational drug use. FAMILY HISTORY: Mother: Breast cancer; High blood pressu re; Type 2 diabetes mellitus Medication List Active Medications Ordered acetaminophen: 650 mg, 2 tab, PO, Q4H, PRN: Pain 1-3/Temp > 100.4 F. Dextrose 50% in Water IV: 12. 5 gm, 25 mL, IVP, PRN, PRN: Blood Glucose Results. Dextrose 50% in Water IV: 25 gm, 50 mL, IVP, PRN, PRN: Blood Glucose Results. dicyclomine: 10 mg, 1 cap, PO , TID. docusate: 100 mg, 1 cap, PO, BID, PRN: as needed for constipation. glucagon: 1 mg, IM, PRN, PRN: Blood Glucose Results. hydrochlorothiazide: 12.5 mg, 1 tab, PO, Daily. hydromorphone: 0.5 mg, 0.5 mL , IVP, Q4H, PRN: Pain Score 7-10. Lactated Ringers Injection IV 1,000 mL: 75 ml/hr, IV, Stop: 06/12/19 19:51:00 CDT. lisinopril: 10 mg, 1 tab, PO, Daily. melatonin: 3 mg, 1 tab, PO, B edtime, PRN: Insomnia. ondansetron: 4 mg, 2 mL, IVP, Q8H, PRN: Nausea & Vomiting. pantoprazole: 40 mg, 1 tab, P O, Daily. sodium chloride: 10 ml, IVP, PRN, PRN: Line Flush. Suspended dicyclomine: 10 mg, 1 cap, PO , TID, for 3 day, 9 cap, 0 Refill(s). famotidine: 40 mg, 1 tab, PO, Daily, 30 tab, 3 Refill(s). hydrochlorothiazide-lisinopri l: 1 tab, PO, Daily, 30 tab, 0 Refill(s). linaclotide: PO, Daily, 0 Ref ill(s). ondansetron: 4 mg, 1 tab, PO, TID, for 2 day, Dissolve tab under tongue, PRN: Nausea & Vomit ing, 6 tab, 0 Refill(s). ondansetron: 4 mg, 1 tab, PO, BID, for 5 day, Dissolve tab under tongue, PRN: Nausea and Vom iting, 10 tab, 0 Refill(s). pantoprazole: 40 mg, 1 tab, P O, Daily, 30 tab, 0 Refill(s). Medications Inactivated in the Last 7 2 Hours hydrochlorothiazide-lisinopril: 1 tab, PO, Daily. LORazepam: 0.5 mg, 0.25 mL, IVP, ONCE, PRN: Anxiety. promethazine + Sodium Chloride 0. 9% IV 50 mL: 12.5 mg, 0.5 mL, 151.5 ml/hr, IVPB, ONCE, PRN: Nausea & Vomiting. Allergies: morphine Review of Systems: NEGATIVE unless bold General: weight loss, loss of appetite, fever, chills, excessive malaise, fatigue, generalized weakness HEENT : recent change in vision, eye efrain n, diplopia, epistaxis, sinus pain, sore throat, throat pain, acute hearing loss, ear pain or discharge RESPIRATORY: shortness of breath, hemopt ysis, cough, wheezing, pleuritic pains CVS: chest pain, palpitations, irregular heart beat, low extremity swelling, heart murmurs GI: see HPI : hematuria, dysuria, incontinence, ur inary frequency, impaired urine flow. recurrent UTIs MS: acute arthritis, back pain, joint sw elling, gout Neurological: acute altered mentation, h eadaches, [...] neg Chest: CTA, resonant to percussion, no a ccessory muscle use Cardiac: regular rhythm, normal S1 and S2; apex not displaced, no edema Abdo: Soft, not distended moderate right upper quadrant/right CVA tenderness, no rebound or guarding, mild left upper quadrant tenderness, no mass, no ascites, no hernia, normal BS, no bruits Ext: No cyanosis, clubbing; peripheral pulses palpable Neuro: A and O x3, grossly intact crani al nerves; non-focal exam. MS: Normal Recent Labs/Radiology [...] Ht(cm) Ht(in) Method 05/12 (initial) 79.55 175.00 Estimate d 05/12 165.10 65.00 Stated Labs (Last four [...] (MAY 13) Ca 8.7 (MAY 13) Extracted from: Title: History and Physical Author: Jasmin Ball Date: 05/13/19 43-year-old female with history of [...]
--- NOTE | 2019-07-31 16:43 | EDPHYS ---
Physician Documentation [facility] Name: Misa Tony Age: 43 yrs Sex: Female : 1975 Arrival Date: 07/31/2019 Time: 15:28 Bed 20 Private MD: Judy Joya ED Physician Carlos Pradhan HPI: 07/30 16:35 This 43 yrs old Female presents to ER via Ambulatory with complaints of Rash. [facility] 16:35 The patient's rash thought to be caused by an unknown cause. The rash is located on the kadeem body diffusely. The rash can be described as urticarial. Onset: The symptoms/episode began/occurred this morning, today. Associated signs and symptoms: Pertinent positives: burning sensation. Severity of symptoms: At their worst the symptoms were mild moderate in the emergency department the symptoms are unchanged. The patient has not experienced similar symptoms in the past. Historical: - Allergies: 15:50 Morphine; iw - PMHx: 15:50 blood clot in Axilla; Endometrosis; gastritis; GERD; Hypertension; Pancreatitis; iw - PSHx: 15:50 Hysterectomy; Cholecystectomy; iw - Immunization history:: Adult Immunizations up to date. - Social history:: Smoking status: Patient reports the use of cigarette tobacco products, Patient denies any tobacco usage or history of. - Family history:: not pertinent. ROS: 16:35 Constitutional: Negative for fever, chills, and weight loss, Eyes: Negative for injury, kadeem pain, redness, and discharge, ENT: Negative for injury, pain, and discharge, Neck: Negative for injury, pain, and swelling, Cardiovascular: Negative for chest pain, palpitations, and edema, Respiratory: Negative for shortness of breath, cough, wheezing, and pleuritic chest pain, Abdomen/GI: Negative for abdominal pain, nausea, vomiting, diarrhea, and constipation, Back: Negative for injury and pain, : Negative for injury, bleeding, discharge, and swelling, MS/Extremity: Negative for injury and deformity, Neuro: Negative for headache, weakness, numbness, tingling, and seizure, Psych: Negative for depression, anxiety, suicide ideation, homicidal ideation, and hallucinations, Allergy/Immunology: Negative for hives, rash, and allergies, Endocrine: Negative for neck swelling, polydipsia, polyuria, polyphagia, and marked weight changes, Hematologic/Lymphatic: Negative for swollen nodes, abnormal bleeding, and unusual bruising. 16:35 Skin: Positive for rash. Exam: 16:35 Constitutional: This is a well developed, well nourished patient who is awake, alert, kaedem and in no acute distress. Head/Face: Normocephalic, atraumatic. Eyes: Pupils equal round and reactive to light, extra-ocular motions intact. Lids and lashes normal. Conjunctiva and sclera are non-icteric and not injected. Cornea within normal limits. Periorbital areas with no swelling, redness, or edema. ENT: Nares patent. No nasal discharge, no septal abnormalities noted. Tympanic membranes are normal and external auditory canals are clear. Oropharynx with no redness, swelling, or masses, exudates, or evidence of obstruction, uvula midline. Mucous membranes moist. Neck: Trachea midline, no thyromegaly or masses palpated, and no cervical lymphadenopathy. Supple, full range of motion without nuchal rigidity, or vertebral point tenderness. No Meningismus. Chest/axilla: Normal chest wall appearance and motion. Nontender with no deformity. No lesions are appreciated. Cardiovascular: Regular rate and rhythm with a normal S1 and S2. No gallops, murmurs, or rubs. Normal PMI, no JVD. No pulse deficits. Respiratory: Lungs have equal breath sounds bilaterally, clear to auscultation and percussion. No rales, rhonchi or wheezes noted. No increased work of breathing, no retractions or nasal flaring. Abdomen/GI: Soft, non-tender, with normal bowel sounds. No distension or tympany. No guarding or rebound. No evidence of tenderness throughout. Back: No spinal tenderness. No costovertebral tenderness. Full range of motion. MS/ Extremity: Pulses equal, no cyanosis. Neurovascular intact. Full, normal range of motion. Neuro: Awake and alert, GCS 15, oriented to person, place, time, and situation. Cranial nerves II-XII grossly intact. Motor strength 5/5 in all extremities. Sensory grossly intact. Cerebellar exam normal. Normal gait. Psych: Awake, alert, with orientation to person, place and time. Behavior, mood, and affect are within normal limits. 16:35 Skin: Appearance: Color: normal in color, Temperature: normal temperature, Moisture: normal moisture, petechiae, ecchymosis, not noted, abscess, not appreciated, cellulitis, is not appreciated, induration, is not appreciated, injury, is not appreciated, urticaria. Vital Signs: 15:48 BP 118 / 57; Pulse 99; Resp 16; Temp 98.9; Pulse Ox 100% on R/A; Weight 79.38 kg; iw Height 5 ft. 5 in. (165.10 cm); Pain 7/10; 15:48 Body Mass Index 29.12 (79.38 kg, 165.10 cm) iw MDM: 16:24 Patient medically screened. kadeem 16:38 Data reviewed: vital signs, nurses notes. Data interpreted: ekg monitor tech: rate is 99 kadeem beats/min, rhythm is normal sinus rhythm, regular. Counseling: I had a detailed discussion with the patient and/or guardian regarding: the historical points, exam findings, and any diagnostic results supporting the discharge/admit diagnosis, the need for outpatient follow up, for definitive care, a family practitioner. Medication response: benadryl, prednisone and pepcid. Response to treatment: the patient's symptoms have markedly improved after treatment. ED course: no new meds, will follow up. Administered Medications: 17:09 Drug: predniSONE 60 mg Route: PO; rb1 17:14 Follow up: Response: Medication administered at discharge. rb1 17:09 Drug: Pepcid 40 mg Route: PO; rb1 17:14 Follow up: Response: Medication administered at discharge. rb1 17:10 Drug: Benadryl 50 mg Route: PO; rb1 17:14 Follow up: Response: Medication administered at discharge. rb1 Disposition: 07/31/19 16:42 Discharged to Home. Impression: Urticaria. - Condition is Stable. - Discharge Instructions: Hives, Hives, [id number]. - Prescriptions for Benadryl 25 mg Oral Capsule - take 1 capsule by ORAL route every 6 hours As needed; 30 tablet. Pepcid 20 mg Oral Tablet - take 1 tablet by ORAL route every 12 hours for 10 days; 20 tablet. Prednisone 20 mg Oral Tablet - take 2 tablet by ORAL route once daily for 5 days; 10 tablet. EpiPen 0.3 mg Injection auto- injector - inject 1 pen by INTRAMUSCULAR route one time Inject into the outer portion of the thigh, through clothing if necessary. Indicated in the emergency treatment of allergic reactions; 1 Container. - Medication Reconciliation Form, Thank You Letter, Antibiotic Education, Prescription Opioid Use form. - Follow up: Judy Joya MD; When: 2 - 3 days; Reason: Recheck today's complaints, Continuance of care, Re-evaluation by your physician. - Problem is new. - Symptoms have improved. Signatures: Carlos Pradhan MD MD cha Williams, Irene, RN RN Rosa Rendon RN RN rb1 Corrections: (The following items were deleted from the chart) 17:18 16:42 07/31/2019 16:42 Discharged to Home. Impression: Urticaria. Condition is Stable. rb1 Forms are Medication Reconciliation Form, Thank You Letter, Antibiotic Education, Prescription Opioid Use. Follow up: Judy Joya; When: 2 - 3 days; Reason: Recheck today's complaints, Continuance of care, Re-evaluation by your physician. Problem is new. Symptoms have improved. kadeem
--- NOTE | 2019-07-31 16:43 | ER ---
Nurse's Notes [facility] Name: Misa Tony Age: 43 yrs Sex: Female : 1975 Arrival Date: 07/31/2019 Time: 15:28 Bed 20 Private MD: Judy Joya Diagnosis: Urticaria Presentation: 07/30 15:48 Chief complaint: Patient states: rash all over arms, legs, stomach, started Thursday, iw taking benadryl , getting worse. Coronavirus screen: Proceed with normal triage. Patient denies a cough. Patient denies shortness of breath or difficulty breathing. Patient denies measured and/or subjective temperature greater than 100.4F prior to today's visit. Patient denies travel on a cruise ship or to a country the [facility] currently lists as an affected area. Patient denies contact with known and/or suspected case of COVID-19. Ebola Screen: Patient negative for fever greater than or equal to 101.5 degrees Fahrenheit, and additional compatible Ebola Virus Disease symptoms Patient denies exposure to infectious person. Patient denies travel to an Ebola-affected area in the 21 days before illness onset. No symptoms or risks identified at this time. Initial Sepsis Screen: Does the patient meet any 2 criteria? No. Patient's initial sepsis screen is negative. Does the patient have a suspected source of infection? No. Patient's initial sepsis screen is negative. Risk Assessment: Do you want to hurt yourself or someone else? Patient reports no desire to harm self or others. Onset of symptoms was July 28, 2019. 15:48 Method Of Arrival: Ambulatory iw 15:48 Acuity: ELADIO 3 iw Historical: - Allergies: 15:50 Morphine; iw - PMHx: 15:50 blood clot in Axilla; Endometrosis; gastritis; GERD; Hypertension; Pancreatitis; iw - PSHx: 15:50 Hysterectomy; Cholecystectomy; iw - Immunization history:: Adult Immunizations up to date. - Social history:: Smoking status: Patient reports the use of cigarette tobacco products, Patient denies any tobacco usage or history of. - Family history:: not pertinent. Screenin:26 Abuse screen: Denies threats or abuse. Nutritional screening: No deficits noted. rb1 Tuberculosis screening: No symptoms or risk factors identified. Fall Risk None identified. Assessment: 16:26 General: Appears in no apparent distress. Behavior is calm, cooperative. Pain: Denies rb1 pain. Neuro: Level of Consciousness is awake, alert, obeys commands, Oriented to person, place, time, situation. Cardiovascular: Capillary refill < 3 seconds. Respiratory: Airway is patent Respiratory effort is even, unlabored, Respiratory pattern is regular, symmetrical. GI: No signs and/or symptoms were reported involving the gastrointestinal system. : No signs and/or symptoms were reported regarding the genitourinary system. Derm: Rash noted that is red, on generalized. Vital Signs: 15:48 BP 118 / 57; Pulse 99; Resp 16; Temp 98.9; Pulse Ox 100% on R/A; Weight 79.38 kg; iw Height 5 ft. 5 in. (165.10 cm); Pain 7/10; 15:48 Body Mass Index 29.12 (79.38 kg, 165.10 cm) iw ED Course: 15:28 Patient arrived in ED. ag5 15:28 Judy Joya MD is Private Physician. ag5 15:50 Triage completed. iw 16:24 Carlos Pradhan MD is Attending Physician. kadeem 16:26 Arm band placed on right wrist. rb1 16:26 Patient has correct armband on for positive identification. Bed in low position. Call rb1 light in reach. Side rails up X 1. Pulse ox on. NIBP on. 16:42 Judy Joya MD is Referral Physician. kadeem 16:53 Rosa Goyal, RN is Primary Nurse. rb1 17:17 No provider procedures requiring assistance completed. Patient did not have IV access rb1 during this emergency room visit. Administered Medications: 17:09 Drug: predniSONE 60 mg Route: PO; rb1 17:14 Follow up: Response: Medication administered at discharge. rb1 17:09 Drug: Pepcid 40 mg Route: PO; rb1 17:14 Follow up: Response: Medication administered at discharge. rb1 17:10 Drug: Benadryl 50 mg Route: PO; rb1 17:14 Follow up: Response: Medication administered at discharge. rb1 Outcome: 16:42 Discharge ordered by . kadeem 17:17 Discharged to home ambulatory. rb1 17:17 Condition: stable 17:17 Discharge instructions given to patient, Instructed on discharge instructions, follow up and referral plans. medication usage, Demonstrated understanding of instructions, follow-up care, medications, Prescriptions given X 4. 17:18 Patient left the ED. rb1 Signatures: Carlos Pradhan MD MD cha Williams, Irene, RN RN iw Rosa Goyal RN RN rb1 Mohan Spivey ag5 Corrections: (The following items were deleted from the chart) 15:50 15:48 BP 118 / 57; Pulse 74bpm; Resp 16bpm; Pulse Ox 100% RA; Temp 98.9F; 79.38 kg; iw Height 5 ft. 5 in.; BMI: 29.1; Pain 7/10; iw
[2019-07-31] MEDS ORDERED: FAMOTIDINE 20 MG TAB ONE (17:14)
[2019-07-31] MEDS ORDERED: DIPHENHYDRAMINE 25 MG TAB/CAP ONE (17:14)
[2019-07-31] MEDS ORDERED: predniSONE 20 MG TAB ONE ×2 (17:14)
[2019-07-31 17:23] VITALS: BP 118/57; TEMP 98.9; O2SAT 100
== END 2019-07-31 17:18 | disposition home or self-care (01) ==
LOC: ER 15:27
DX: L50.9 Urticaria, unspecified (principal); I10 Essential (primary) hypertension; F17.210 Nicotine dependence, cigarettes, uncomplicated; Z88.5 Allergy status to narcotic agent
CPT/HCPCS: 99283; J7512

== ENCOUNTER 2020-05-24 07:16 | Emergency (ER) | payer BC ==
[2020-05-24 08:46] LABS: Urine Blood Trace-intact (Negative); Urine Glucose Negative (Negative); Urine Protein Negative (Negative); Urine pH 6.5 (5.0-7.0)
[2020-05-24 09:25] LABS: Absolute Lymphocytes (CBC) 3.3 K/uL (0.7-4.9); Basophils % 1.4 % (0-1.3); Hematocrit 41.3 % (36.0-45.0); Lymphocytes % 30.9 % (15.3-44.8); MPV 9.9 fL (7.6-11.3); RBC Red Blood Cell Count 4.58 M/uL (3.86-4.86)
[2020-05-24] MEDS ORDERED: ONDANSETRON 4 MG/2 ML VIAL ONE (09:32)
[2020-05-24] MEDS ORDERED: FAMOTIDINE 20 MG/2 ML VIAL IV ONE (09:33)
[2020-05-24] MEDS ORDERED: MEPERIDINE HCL 25 MG/ML SYR ONE (09:33)
[2020-05-24 09:51] LABS: ALT/SGPT 104 U/L (12-78); AST/SGOT 68 U/L (15-37); Alkaline Phosphatase 115 U/L (45-117); BUN Blood Urea Nitrogen 7 mg/dL (7-18); Bicarbonate 29 mmol/L (21-32); Bilirubin Direct < 0.1 mg/dL (0-0.2); Bilirubin Total 0.4 mg/dL (0.2-1.0); Glucose Level 91 mg/dL (74-106); Lipase 107 U/L (73-393); Potassium 4.2 mmol/L (3.5-5.1); Sodium Level 135 mmol/L (136-145)
--- NOTE | 2020-05-24 09:57 | RAD REPORT ---
EXAM DESCRIPTION: CT - Abdomen Pelvis W Contrast - 05/24/2020 9:43 am CLINICAL HISTORY: Abdominal pain/right flank pain COMPARISON: 2019 TECHNIQUE: Computed axial tomography of the abdomen pelvis was obtained. 100 cc Isovue-300 was admin istered intravenously. Oral contrast was not requested which limits evaluation of bowel. All CT scans are performed using dose optimization technique as appropriate and may include automated exposure control or mA/KV adjustment according to patient size. FINDINGS: The liver is enlarged. Fatty infiltration is present. Cholecystectomy. Spleen, pancreas, adrenal and kidneys appear unremarkable. There is no evidence of diverticulitis. Normal appendix IMPRESSION: Hepatomegaly with fatty infiltration
[2020-05-24] MEDS ORDERED: FENTANYL CITR 100 MCG/2 ML ONE (10:25)
--- NOTE | 2020-05-24 10:37 | EDPHYS ---
Physician Documentation [facility] Name: Misa Tony Age: 44 yrs Sex: Female : 1975 Arrival Date: 05/24/2020 Time: 07:18 Bed 7 Private MD: Aleta Araujo ED Physician Cade Hull HPI: 05/24 17:39 This 44 yrs old Female presents to ER via Ambulatory with complaints of Flank kdr Pain. 17:40 The patient presents with abdominal pain in the right upper quadrant. Onset: The kdr symptoms/episode began/occurred this morning. The symptoms radiate to the right flank. Associated signs and symptoms: Pertinent positives: nausea, Pertinent negatives: palpitations, vaginal discharge, vomiting. The symptoms are described as achy, sharp, steady. Modifying factors: The symptoms are alleviated by nothing, the symptoms are aggravated by nothing. Severity of pain: At its worst the pain was moderate just prior to arrival, in the emergency department the pain is unchanged. The patient has not experienced similar symptoms in the past. The patient has not recently seen a physician. Historical: - Allergies: 07:36 Morphine; aa5 - Home Meds: 07:36 lisinopril-hydrochlorothiazide Oral [Active]; Protonix Oral [Active]; aa5 - PMHx: 07:36 blood clot in Axilla; Endometrosis; gastritis; GERD; Hypertension; Pancreatitis; aa5 Bipolar disorder; - PSHx: 07:36 Hysterectomy; Cholecystectomy; aa5 - Immunization history:: Adult Immunizations up to date. - Social history:: Smoking status: Patient denies any tobacco usage or history of. ROS: 17:40 Constitutional: Negative for fever, chills, and weight loss, Eyes: Negative for injury, kdr pain, redness, and discharge, ENT: Negative for injury, pain, and discharge, Neck: Negative for injury, pain, and swelling, Cardiovascular: Negative for chest pain, palpitations, and edema, Respiratory: Negative for shortness of breath, cough, wheezing, and pleuritic chest pain, Back: Negative for injury and pain, : Negative for injury, bleeding, discharge, and swelling, MS/Extremity: Negative for injury and deformity, Skin: Negative for injury, rash, and discoloration, Neuro: Negative for headache, weakness, numbness, tingling, and seizure activity. Psych: Negative for depression, anxiety, suicide ideation, homicidal ideation, and hallucinations, Allergy/Immunology: Negative for hives, rash, and allergies, Endocrine: Negative for neck swelling, polydipsia, polyuria, polyphagia, and marked weight changes, Hematologic/Lymphatic: Negative for swollen nodes, abnormal bleeding, and unusual bruising. 17:40 Abdomen/GI: Positive for abdominal pain, nausea, Negative for abdominal cramps, abdominal distension, anorexia, black/tarry stool, rectal pain, rectal bleeding, bowel incontinence. Exam: 17:40 Constitutional: This is a well developed, well nourished patient who is awake, alert, kdr and in mild distress. Head/Face: Normocephalic, atraumatic. Eyes: Pupils equal round and reactive to light, extra-ocular motions intact. Lids and lashes normal. Conjunctiva and sclera are non-icteric and not injected. Cornea within normal limits. Periorbital areas with no swelling, redness, or edema. Neck: Trachea midline, no thyromegaly or masses palpated, and no cervical lymphadenopathy. Supple, full range of motion without nuchal rigidity, or vertebral point tenderness. No Meningismus. Chest/axilla: Normal chest wall appearance and motion. Nontender with no deformity. No lesions are appreciated. Cardiovascular: Regular rate and rhythm with a normal S1 and S2. No gallops, murmurs, or rubs. Normal PMI, no JVD. No pulse deficits. Respiratory: Lungs have equal breath sounds bilaterally, clear to auscultation and percussion. No rales, rhonchi or wheezes noted. No increased work of breathing, no retractions or nasal flaring. Back: No spinal tenderness. No costovertebral tenderness. Full range of motion. Skin: Warm, dry with normal turgor. Normal color with no rashes, no lesions, and no evidence of cellulitis. MS/ Extremity: Pulses equal, no cyanosis. Neurovascular intact. Full, normal range of motion. Neuro: Awake and alert, GCS 15, oriented to person, place, time, and situation. Cranial nerves II-XII grossly intact. Motor strength 5/5 in all extremities. Sensory grossly intact. Cerebellar exam normal. Normal gait. Psych: Awake, alert, with orientation to person, place and time. Behavior, mood, and affect are within normal limits. 17:40 Abdomen/GI: Inspection: abdomen appears normal, Bowel sounds: active, all quadrants, Palpation: soft, mild abdominal tenderness, in the anterior aspect of left lateral abdomen and right upper quadrant. Vital Signs: 07:35 BP 111 / 72; Pulse 75; Resp 18 S; Temp 97.2(TE); Pulse Ox 97% on R/A; Weight 83.91 kg aa5 (R); Height 5 ft. 5 in. (165.10 cm) (R); Pain 9/10; 09:23 BP 117 / 76; Pulse 78; Resp 15; Pulse Ox 98% ; jl7 10:38 BP 104 / 66; Pulse 71; Resp 18; Pulse Ox 96% ; ld1 07:35 Body Mass Index 30.79 (83.91 kg, 165.10 cm) aa5 MDM: 10:36 Patient medically screened. kdr 17:40 Differential diagnosis: bowel obstruction, Cholelithiasis. Data reviewed: vital signs, kdr nurses notes. Response to treatment: the patient's symptoms have markedly improved after treatment. Special discussion: Based on the patient's Hx, exam, and Dx evaluation, there is no indication for emergent surgery or inpatient Tx. It is understood by the patient/guardian that if the Sx's persist or worsen they need to return immediately for re-evaluation. I discussed with the patient/guardian in detail that at this point there is no indication for admission to the hospital. It is understood, however, that if the symptoms persist or worsen the patient needs to return immediately for re-evaluation. 05/24 08:45 Order name: Basic Metabolic Panel [facility] 05/24 08:45 Order name: CBC with Diff kdr 05/24 08:45 Order name: Hepatic Function; Complete Time: 10:24 kdr 05/24 08:45 Order name: Lipase; Complete Time: 10:24 kdr 05/24 08:46 Order name: Basic Metabolic Panel; Complete Time: 10:24 EDMS 05/24 08:46 Order name: CBC with Automated Diff; Complete Time: 10:24 EDMS 05/24 08:46 Order name: Urine Dipstick-Ancillary; Complete Time: 10:24 EDMS 05/24 08:46 Order name: CT Abd/Pelvis - IV Contrast Only; Complete Time: 10:24 kdr 05/24 08:48 Order name: Urine --Ancillary EDMS 05/24 10:40 Order name: CREATININE WHOLE BLOOD EDMS 05/24 08:45 Order name: IV Saline Lock; Complete Time: 09:10 kdr 05/24 08:45 Order name: Labs collected and sent; Complete Time: 09:10 kdr Administered Medications: 09:20 Drug: Demerol 25 mg Route: IVP; Site: right antecubital; ld1 09:41 Follow up: Response: No adverse reaction ld1 09:20 Drug: Zofran (Ondansetron) 4 mg Route: IVP; Site: right antecubital; ld1 09:41 Follow up: Response: No adverse reaction ld1 09:20 Drug: Pepcid (famotidine) 20 mg Route: IVP; Site: right antecubital; ld1 09:41 Follow up: Response: No adverse reaction ld1 10:05 Drug: fentaNYL (PF) 25 mcg Route: IVP; Site: right antecubital; ld1 10:35 Follow up: Response: No adverse reaction ld1 Disposition: 05/24/20 10:36 Discharged to Home. Impression: Abdominal and pelvic pain, Flank pain. - Condition is Stable. - Discharge Instructions: Abdominal Pain, Adult, Stnu-wm-[id number]. - Prescriptions for Tylenol- Codeine #3 300-30 mg Oral Tablet - take 2 tablets by ORAL route every 4-6 hours As needed; 12 tablet. - Medication Reconciliation Form, Thank You Letter, Prescription Opioid Use, Work release form form. - Follow up: Private Physician; When: 2 - 3 days; Reason: If symptoms return, Further diagnostic work-up, Recheck today's complaints, Continuance of care, Re-evaluation by your physician. - Problem is new. - Symptoms have improved. Signatures: Dispatcher [employer] [facility] Cade Hull MD MD kdr Marleni Ortiz RN RN aa5 Juana Razo RN RN ld1 Corrections: (The following items were deleted from the chart) 09:11 08:48 URINE --ANCILLARY+UC.LAB.BRZ ordered. [facility] EDMS 10:45 10:36 05/24/2020 10:36 Discharged to Home. Impression: Abdominal and pelvic pain; Flank ld1 pain. Condition is Stable. Forms are Medication Reconciliation Form, Thank You Letter, Antibiotic Education, Prescription Opioid Use. Follow up: Private Physician; When: 2 - 3 days; Reason: If symptoms return, Further diagnostic work-up, Recheck today's complaints, Continuance of care, Re-evaluation by your physician. Problem is new. Symptoms have improved. kdr
--- NOTE | 2020-05-24 10:37 | ER ---
Nurse's Notes [facility] Name: Misa Tony Age: 44 yrs Sex: Female : 1975 Arrival Date: 05/24/2020 Time: 07:18 Bed 7 Private MD: Aleta Araujo Diagnosis: Abdominal and pelvic pain;Flank pain Presentation: 05/24 07:35 Chief complaint: Patient states: RUQ pain that began this morning. Pt also reports aa5 nausea and diarrhea. Denies fever. Coronavirus screen: diarrhea, nausea. Ebola Screen: Patient negative for fever greater than or equal to 101.5 degrees Fahrenheit, and additional compatible Ebola Virus Disease symptoms. Initial Sepsis Screen: Does the patient meet any 2 criteria? No. Patient's initial sepsis screen is negative. Does the patient have a suspected source of infection? No. Patient's initial sepsis screen is negative. Risk Assessment: Do you want to hurt yourself or someone else? Patient reports no desire to harm self or others. Onset of symptoms was May 24, 2020. 07:35 Method Of Arrival: Ambulatory aa5 07:35 Acuity: ELADIO 3 aa5 Historical: - Allergies: 07:36 Morphine; aa5 - Home Meds: 07:36 lisinopril-hydrochlorothiazide Oral [Active]; Protonix Oral [Active]; aa5 - PMHx: 07:36 blood clot in Axilla; Endometrosis; gastritis; GERD; Hypertension; Pancreatitis; aa5 Bipolar disorder; - PSHx: 07:36 Hysterectomy; Cholecystectomy; aa5 - Immunization history:: Adult Immunizations up to date. - Social history:: Smoking status: Patient denies any tobacco usage or history of. Screenin:10 Abuse screen: Denies threats or abuse. Denies injuries from another. Nutritional ld1 screening: No deficits noted. Tuberculosis screening: No symptoms or risk factors identified. Fall Risk IV access (20 points). Total Salvador Fall Scale indicates No Risk (0-24 pts). Assessment: 09:10 General: Appears in no apparent distress. comfortable, Behavior is calm, cooperative, ld1 appropriate for age. Pain: Complains of pain in left low back, left mid back, right mid back and right low back Pain does not radiate. Pain currently is 8 out of 10 on a pain scale. Quality of pain is described as burning, throbbing, Pain began 2-3 days ago. Is continuous. Neuro: Level of Consciousness is awake, alert, obeys commands, Oriented to person, place, time, situation. Cardiovascular: Patient's skin is warm and dry. Respiratory: Airway is patent is compromised Respiratory effort is even, unlabored, Respiratory pattern is regular, symmetrical. GI: Abdomen is round non-distended. : No deficits noted. No signs and/or symptoms were reported regarding the genitourinary system. EENT: No deficits noted. No signs and/or symptoms were reported regarding the EENT system. Derm: No deficits noted. No signs and/or symptoms reported regarding the dermatologic system. Musculoskeletal: No deficits noted. No signs and/or symptoms reported regarding the musculoskeletal system. 10:12 Reassessment: Patient c/o 8/10 flank pain. Notified ERP. See MAR for orders. Patient ld1 denies pain at this time. 10:35 Reassessment: ERP at bedside discussing POC. ld1 Vital Signs: 07:35 BP 111 / 72; Pulse 75; Resp 18 S; Temp 97.2(TE); Pulse Ox 97% on R/A; Weight 83.91 kg aa5 (R); Height 5 ft. 5 in. (165.10 cm) (R); Pain 9/10; 09:23 BP 117 / 76; Pulse 78; Resp 15; Pulse Ox 98% ; jl7 10:38 BP 104 / 66; Pulse 71; Resp 18; Pulse Ox 96% ; ld1 07:35 Body Mass Index 30.79 (83.91 kg, 165.10 cm) aa5 ED Course: 07:18 Patient arrived in ED. am2 07:19 Aleta Araujo FNP-C is Private Physician. am2 07:35 Arm band placed on. aa5 07:36 Triage completed. aa5 08:35 Cade Hull MD is Attending Physician. kdr 09:10 Juana Razo, VINOD is Primary Nurse. ld1 09:10 Patient has correct armband on for positive identification. Placed in gown. Bed in low ld1 position. Call light in reach. Side rails up X 1. Door closed. Noise minimized. Warm blanket given. 09:10 Basic Metabolic Panel Sent. ld1 09:10 CBC with Diff Sent. ld1 09:10 No provider procedures requiring assistance completed. ld1 09:22 Inserted saline lock: 22 gauge in right upper arm, using aseptic technique. Blood jl7 collected. 09:22 Initial lab(s) drawn, by ED staff, sent to lab. Urine collected: clean catch specimen, ld1 clear. 09:43 CT Abd/Pelvis - IV Contrast Only In Process Unspecified. EDMS 10:44 IV discontinued, intact, bleeding controlled, No redness/swelling at site. ld1 Administered Medications: 09:20 Drug: Demerol 25 mg Route: IVP; Site: right antecubital; ld1 09:41 Follow up: Response: No adverse reaction ld1 09:20 Drug: Zofran (Ondansetron) 4 mg Route: IVP; Site: right antecubital; ld1 09:41 Follow up: Response: No adverse reaction ld1 09:20 Drug: Pepcid (famotidine) 20 mg Route: IVP; Site: right antecubital; ld1 09:41 Follow up: Response: No adverse reaction ld1 10:05 Drug: fentaNYL (PF) 25 mcg Route: IVP; Site: right antecubital; ld1 10:35 Follow up: Response: No adverse reaction ld1 Outcome: 10:36 Discharge ordered by . kdr 10:44 Discharged to home ambulatory. ld1 10:44 Condition: stable 10:44 Discharge instructions given to patient, Instructed on discharge instructions, follow up and referral plans. medication usage, Demonstrated understanding of follow-up care, medications. 10:45 Patient left the ED. ld1 Signatures: Dispatcher [employer] EDVA Cade Hull MD MD kdr Calderon, Audri, RN RN aa5 Jennifer Baltazar RN RN jl7 Anjali Griffin am2 Juana Razo RN RN ld1 Corrections: (The following items were deleted from the chart) 09:38 09:36 Abuse screen: Denies threats or abuse. Denies injuries from another. ld1 ld1 09:38 09:36 Nutritional screening: No deficits noted. ld1 ld1 09:38 09:36 Tuberculosis screening: No symptoms or risk factors identified. ld1 ld1 09:38 09:36 Fall Risk IV access (20 points). Total Salvador Fall Scale indicates No Risk (0-24 ld1 pts). ld1 09:39 09:22 Initial lab(s) drawn, by ED staff, sent to lab. Urine collected: clean catch ld1 specimen, clear, jl7
[2020-05-24 21:56] VITALS: TEMP 97.2
[2020-05-24 22:14] VITALS: BP 104/66; O2SAT 96
== END 2020-05-24 10:45 | disposition home or self-care (01) ==
LOC: ER 07:16
DX: R10.9 Unspecified abdominal pain (principal); R11.0 Nausea; I10 Essential (primary) hypertension; K21.9 Gastro-esophageal reflux disease without esophagitis; Z88.5 Allergy status to narcotic agent
CPT/HCPCS: 85025; 80048; 36415; 81025; 82565; 80076; 81003; 83690; 74177; 96375; 96374; 99284; Q9967; J3010; J2175; J2405

== ENCOUNTER 2020-08-08 13:17 | Emergency (ER) | payer BC ==
[2020-08-08 14:23] LABS: Urine Blood 2+ (Negative); Urine Glucose Negative (Negative); Urine Protein Negative (Negative); Urine Specific Gravity 1.015 (1.005-1.030); Urine pH 6.5 (5.0-7.0)
[2020-08-08] MEDS ORDERED: MEPERIDINE HCL 25 MG/ML SYR ONE ×2 (15:46→16:24)
[2020-08-08] MEDS ORDERED: NA CHLORIDE 0.9% 1,000 ML ONE (15:46)
[2020-08-08] MEDS ORDERED: ONDANSETRON 4 MG/2 ML VIAL ONE (15:46)
[2020-08-08] MEDS ORDERED: FAMOTIDINE 20 MG/2 ML VIAL IV ONE (15:47)
[2020-08-08 15:54] LABS: Basophils % 0.8 % (0-1.3); Hematocrit 38.9 % (36.0-45.0); MPV 10.1 fL (7.6-11.3); RBC Red Blood Cell Count 4.34 M/uL (3.86-4.86)
[2020-08-08 15:54] LABS: Urine Bacteria <20 /HPF (<20); Urine RBC <5 /HPF (NONE SEEN)
[2020-08-08 16:14] LABS: ALT/SGPT 95 U/L (12-78); AST/SGOT 76 U/L (15-37); Albumin 3.9 g/dL (3.4-5.0); Alkaline Phosphatase 114 U/L (45-117); BUN Blood Urea Nitrogen 8 mg/dL (7-18); Bicarbonate 29 mmol/L (21-32); Bilirubin Direct < 0.1 mg/dL (0-0.2); Bilirubin Total 0.4 mg/dL (0.2-1.0); Glucose Level 97 mg/dL (74-106); Lipase 96 U/L (73-393); Potassium 3.5 mmol/L (3.5-5.1); Protein, Total 8.5 g/dL (6.4-8.2); Sodium Level 138 mmol/L (136-145)
--- NOTE | 2020-08-08 16:56 | RAD REPORT ---
EXAM DESCRIPTION: CT - Abdomen Pelvis W Contrast - 08/08/2020 4:36 pm CLINICAL HISTORY: Abdominal pain COMPARISON: May 2020 TECHNIQUE: Computed axial tomography of the abdomen pelvis was obtained. 100 cc Isovue-300 was admin istered intravenously. Oral contrast was not requested which limits evaluation of bowel. All CT scans are performed using dose optimization technique as appropriate and may include automated exposure control or mA/KV adjustment according to patient size. FINDINGS: The liver is enlarged with fatty infiltration. Cholecystectomy Spleen, pancreas, adrenal and kidneys appear unremarkable. There is no evidence of diverticulitis. Normal appendix IMPRESSION: Hepatomegaly with fatty infiltration
[2020-08-08] MEDS ORDERED: FENTANYL CITR 100 MCG/2 ML ONE (17:59)
[2020-08-08] MEDS ORDERED: NA CHLORIDE 0.9% 500 ML ONE (17:59)
[2020-08-08] MEDS ORDERED: PROMETHAZINE INJ 25 MG/ML AMP ONE (17:59)
--- NOTE | 2020-08-08 18:00 | EDPHYS ---
Physician Documentation [facility] Name: Misa Tony Age: 44 yrs Sex: Female : 1975 Arrival Date: 08/08/2020 Time: 13:20 Bed 27 Private MD: ED Physician Ibrahima Sam HPI: 08/08 15:25 This 44 yrs old Female presents to ER via Ambulatory with complaints of cp Abdominal Pain - SEVERE. 15:25 The patient presents with abdominal pain in the upper abdomen. cp 15:25 Onset: The symptoms/episode began/occurred 3 day(s) ago. cp 15:25 The symptoms do not radiate. Associated signs and symptoms: Pertinent positives: cp diarrhea, nausea, Pertinent negatives: constipation, dysuria, fever, vomiting. The symptoms are described as constant. Severity of pain: in the emergency department the pain is a 9 / 10. 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 - Social history:: Smoking status: . ROS: 15:30 Constitutional: Negative for body aches, chills, fever. cp 15:30 Eyes: Negative for injury, pain, redness, and discharge. cp Vital Signs: 13:45 BP 153 / 109; Pulse 96; Resp 17; Temp 97.9(TE); Pulse Ox 98% on R/A; Weight 86.18 kg; tw2 Height 5 ft. 5 in. (165.10 cm) (R); Pain 9/10; 15:18 BP 153 / 100; Pulse 91; Resp 18; Pulse Ox 100% on R/A; ld1 16:45 BP 156 / 101; Pulse 91; Resp 18; Pulse Ox 100% on R/A; ld1 13:45 Body Mass Index 31.62 (86.18 kg, 165.10 cm) tw2 MDM: 15:19 Patient medically screened. 08/08 14:23 Order name: Urine Dipstick-Ancillary; Complete Time: 16:12 EDMS 08/08 16:12 Interpretation: Normal except: UBLD 2+. 08/08 15:20 Order name: Basic Metabolic Panel 08/08 15:20 Order name: CBC with Diff 08/08 15:20 Order name: Hepatic Function 08/08 15:20 Order name: Lipase 08/08 15:20 Order name: Urine Microscopic Only 08/08 15:30 Order name: CT Abd/Pelvis - IV Contrast Only 08/08 15:55 Order name: Urine Microscopic Only; Complete Time: 16:12 EDMS 08/08 15:56 Order name: CBC with Automated Diff; Complete Time: 16:12 EDMS 08/08 16:12 Interpretation: Normal except: WBC 12.40. 08/08 16:15 Order name: Basic Metabolic Panel; Complete Time: 16:35 EDMS 08/08 16:15 Order name: Liver (Hepatic) Function; Complete Time: 16:35 EDMS 08/08 16:15 Order name: Lipase; Complete Time: 16:35 EDMS 08/08 16:57 Order name: CT; Complete Time: 17:14 EDMS 08/08 17:14 Interpretation: Report reviewed. 08/08 15:20 Order name: IV Saline Lock; Complete Time: 15:37 cp 08/08 15:20 Order name: Labs collected and sent; Complete Time: 15:37 cp 08/08 17:26 Order name: PO challenge; Complete Time: 17:35 cp Administered Medications: 15:35 Drug: NS 0.9% 1000 ml Route: IV; Rate: 1 bolus; Site: left antecubital; ld1 15:36 Drug: Pepcid (famotidine) 20 mg Route: IVP; Site: left antecubital; ld1 16:10 Follow up: Response: No adverse reaction ld1 16:10 Follow up: Response: No adverse reaction ld1 15:36 Drug: Demerol (meperidine) 25 mg Route: IVP; Site: left antecubital; ld1 16:10 Follow up: Response: No adverse reaction ld1 15:37 Drug: Zofran (Ondansetron) 4 mg Route: IVP; Site: left antecubital; ld1 16:10 Follow up: Response: No adverse reaction ld1 16:07 Drug: Demerol (meperidine) 25 mg Route: IVP; Site: left antecubital; ld1 16:10 Follow up: Response: No adverse reaction ld1 17:43 Drug: fentaNYL (PF) 25 mcg Route: IVP; Site: left antecubital; ld1 17:43 Drug: Phenergan (promethazine) 25 mg Route: IVP; Site: left antecubital; ld1 17:43 Drug: NS 0.9% 500 ml Route: IV; Rate: bolus; Site: left antecubital; ld1 Disposition: 08/08/20 17:59 Discharged to Home. Impression: Upper abdominal pain, unspecified. - Condition is Stable. - Discharge Instructions: Abdominal Pain, Adult. - Prescriptions for promethazine 25 mg Oral Tablet - take 1 tablet by ORAL route every 6 hours As needed; 20 tablet. Tylenol- Codeine #3 300-30 mg Oral Tablet - take 2 tablets by ORAL route every 8-12 hours As needed; 12 tablet. - Medication Reconciliation Form, Thank You Letter, Antibiotic Education, Prescription Opioid Use, Work release form form. - Follow up: Private Physician; When: 1 - 2 days; Reason: Recheck today's complaints. - Problem is an ongoing problem. - Symptoms have improved. Signatures: Dispatcher [employer] EDMS Carlos Trinidad PA PA cp Wise, Tara RN RN tw2 Juana Razo RN RN ld1 Corrections: (The following items were deleted from the chart) 18:31 17:59 08/08/2020 17:59 Discharged to Home. Impression: Upper abdominal pain, ld1 unspecified. Condition is Stable. Forms are Medication Reconciliation Form, Thank You Letter, Antibiotic Education, Prescription Opioid Use. Follow up: Private Physician; When: 1 - 2 days; Reason: Recheck today's complaints. Problem is an ongoing problem. Symptoms have improved. cp
--- NOTE | 2020-08-08 18:00 | ER ---
Nurse's Notes [facility] [place], [place] Name: Misa Tony Age: 44 yrs Sex: Female : 1975 Arrival Date: 08/08/2020 Time: 13:20 Bed 27 Private MD: Diagnosis: Upper abdominal pain, unspecified Presentation: 08/08 13:45 Chief complaint: Patient states: diarrhea, pain for 3 days, it has been an 8 now it is tw2 a 9/10. nausea as well. Coronavirus screen: diarrhea, nausea, Client presents with at least one sign or symptom that may indicate coronavirus-19. Standard/surgical mask placed on the client. Provider contacted for isolation considerations. Ebola Screen: Patient denies travel to an Ebola-affected area in the 21 days before illness onset. Initial Sepsis Screen: Does the patient meet any 2 criteria? HR > 90 bpm. No. Patient's initial sepsis screen is negative. Does the patient have a suspected source of infection? No. Patient's initial sepsis screen is negative. Risk Assessment: Do you want to hurt yourself or someone else? Patient reports no desire to harm self or others. Onset of symptoms was August 08, 2020. 13:45 Method Of Arrival: Ambulatory tw2 13:45 Acuity: ELADIO 3 tw2 Triage Assessment: 13:48 General: Appears in no apparent distress. obese, well groomed, Behavior is calm, tw2 cooperative, appropriate for age. Pain: Complains of pain in abdomen. GI: Reports lower abdominal pain, upper abdominal pain, diarrhea, nausea. 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 - Social history:: Smoking status: . Screenin:18 Abuse screen: Denies threats or abuse. Denies injuries from another. Nutritional ld1 screening: No deficits noted. Tuberculosis screening: No symptoms or risk factors identified. Fall Risk None identified. Assessment: 15:18 General: Appears in no apparent distress. uncomfortable, Behavior is calm, cooperative, ld1 appropriate for age. Pain: Complains of pain in abdomen Pain does not radiate. Pain currently is 10 out of 10 on a pain scale. Quality of pain is described as burning, stabbing, Pain began 2-3 days ago. Is continuous. Neuro: Level of Consciousness is awake, alert, obeys commands, Oriented to person, place, time, situation, Appropriate for age. Cardiovascular: Capillary refill < 3 seconds Patient's skin is warm and dry. Respiratory: Airway is patent Respiratory effort is even, unlabored, Respiratory pattern is regular, symmetrical. GI: Abdomen is round non-distended, Bowel sounds present X 4 quads. Abd is soft Abdomen is tender to palpation X 4 quads. : No signs and/or symptoms were reported regarding the genitourinary system. EENT: No signs and/or symptoms were reported regarding the EENT system. Derm: No signs and/or symptoms reported regarding the dermatologic system. Musculoskeletal: No signs and/or symptoms reported regarding the musculoskeletal system. 16:45 Reassessment: Patient and/or family updated on plan of care and expected duration. Pain ld1 level reassessed. Frequently requesting pain medication, notified ERP of ABD pain. See MAR for orders. Patient states symptoms have not improved. 17:30 Reassessment: Patient appears in no apparent distress at this time. No changes from ld1 previously documented assessment. Patient and/or family updated on plan of care and expected duration. Pain level reassessed. Vital Signs: 13:45 BP 153 / 109; Pulse 96; Resp 17; Temp 97.9(TE); Pulse Ox 98% on R/A; Weight 86.18 kg; tw2 Height 5 ft. 5 in. (165.10 cm) (R); Pain 9/10; 15:18 BP 153 / 100; Pulse 91; Resp 18; Pulse Ox 100% on R/A; ld1 16:45 BP 156 / 101; Pulse 91; Resp 18; Pulse Ox 100% on R/A; ld1 13:45 Body Mass Index 31.62 (86.18 kg, 165.10 cm) tw2 ED Course: 13:20 Patient arrived in ED. 13:46 Triage completed. tw2 13:48 Arm band placed on. tw2 15:07 [facility] cp 15:07 Ibrahima Sam MD is Attending Physician. cp 15:14 Juana Razo, VINOD is Primary Nurse. ld1 15:18 Patient has correct armband on for positive identification. Placed in gown. Bed in low ld1 position. Side rails up X2. Pulse ox on. NIBP on. 15:18 No provider procedures requiring assistance completed. ld1 18:30 IV discontinued, intact, bleeding controlled, No redness/swelling at site. ld1 Administered Medications: 15:35 Drug: NS 0.9% 1000 ml Route: IV; Rate: 1 bolus; Site: left antecubital; ld1 15:36 Drug: Pepcid (famotidine) 20 mg Route: IVP; Site: left antecubital; ld1 16:10 Follow up: Response: No adverse reaction ld1 16:10 Follow up: Response: No adverse reaction ld1 15:36 Drug: Demerol (meperidine) 25 mg Route: IVP; Site: left antecubital; ld1 16:10 Follow up: Response: No adverse reaction ld1 15:37 Drug: Zofran (Ondansetron) 4 mg Route: IVP; Site: left antecubital; ld1 16:10 Follow up: Response: No adverse reaction ld1 16:07 Drug: Demerol (meperidine) 25 mg Route: IVP; Site: left antecubital; ld1 16:10 Follow up: Response: No adverse reaction ld1 17:43 Drug: fentaNYL (PF) 25 mcg Route: IVP; Site: left antecubital; ld1 17:43 Drug: Phenergan (promethazine) 25 mg Route: IVP; Site: left antecubital; ld1 17:43 Drug: NS 0.9% 500 ml Route: IV; Rate: bolus; Site: left antecubital; ld1 Outcome: 17:59 Discharge ordered by . cp 17:59 Condition: stable ld1 17:59 Discharged to home ambulatory. ld1 17:59 Discharge instructions given to patient, Instructed on discharge instructions, follow up and referral plans. medication usage, Demonstrated understanding of instructions, follow-up care, medications. 18:31 Patient left the ED. ld1 Signatures: Carlos Trinidad PA PA cp Wise, Tara RN RN tw2 Juana Razo RN RN ld1 Charley Rasmussen
[2020-08-08 18:53] VITALS: TEMP 97.9
[2020-08-08 19:00] VITALS: O2SAT 100
[2020-08-08 19:05] VITALS: BP 156/101
== END 2020-08-08 18:31 | disposition home or self-care (01) ==
LOC: ER 13:17
DX: R10.10 Upper abdominal pain, unspecified (principal); I10 Essential (primary) hypertension; Z88.5 Allergy status to narcotic agent
CPT/HCPCS: 85025; 80048; 36415; 80076; 83690; 74177; Q9967; J2550; J3010; J2175 ×2; J7040; J7030; J2405; 81003; 81015

== ENCOUNTER 2020-08-13 12:25 | Emergency (ER) | payer BC ==
[2020-08-13 13:43] LABS: Absolute Lymphocytes (CBC) 3.5 K/uL (0.7-4.9); Basophils % 0.7 % (0-1.3); Hematocrit 38.6 % (36.0-45.0); Lymphocytes % 32.1 % (15.3-44.8); MPV 9.5 fL (7.6-11.3); RBC Red Blood Cell Count 4.27 M/uL (3.86-4.86)
[2020-08-13] MEDS ORDERED: NA CHLORIDE 0.9% 1,000 ML ONE (13:46)
[2020-08-13] MEDS ORDERED: PROMETHAZINE INJ 25 MG/ML AMP ONE ×3 (13:46→16:58)
[2020-08-13] MEDS ORDERED: MEPERIDINE HCL 25 MG/ML SYR ONE ×2 (13:46→16:58)
[2020-08-13 14:08] LABS: ALT/SGPT 95 U/L (12-78); AST/SGOT 65 U/L (15-37); Albumin 3.9 g/dL (3.4-5.0); Alkaline Phosphatase 113 U/L (45-117); BUN Blood Urea Nitrogen 5 mg/dL (7-18); Bicarbonate 34 mmol/L (21-32); Bilirubin Direct 0.1 mg/dL (0-0.2); Bilirubin Total 0.5 mg/dL (0.2-1.0); Glucose Level 91 mg/dL (74-106); Lipase 62 U/L (73-393); Potassium 3.2 mmol/L (3.5-5.1); Protein, Total 8.3 g/dL (6.4-8.2); Sodium Level 138 mmol/L (136-145)
--- NOTE | 2020-08-13 14:21 | RAD REPORT ---
EXAM DESCRIPTION: CT - Abdomen Pelvis W Contrast - 08/13/2020 1:58 pm CLINICAL HISTORY: ABD PAIN COMPARISON: Abdomen Pelvis W Contrast dated 08/08/2020 TECHNIQUE: Biphasic, helical CT imaging of the abdomen and pelvis was performed following 100 ml non -ionic IV contrast. No oral contrast was given. All CT scans are performed using dose optimization technique as appropriate and may include automated exposure control or mA/KV adjustment according to patient size. FINDINGS: No suspicious findings in the lung bases. Diffuse fatty infiltration again noted in the enlarged liver with no focal lesion. No portal vein abn ormality. Pancreas and spleen show no acute findings. Cholecystectomy clips present with no biliary t ree dilatation. Symmetric renal function is seen with no hydronephrosis or suspicious renal mass. No pyelonephritis o r acute parenchymal process. Urinary bladder is mostly contracted limiting assessment. No abnormality suspected. No bladder calculi. Uterus is absent. Ovaries are not well defined and may be surgically absent as well. No ovarian based mass is identifiable. No adrenal abnormalities. No dilated bowel loops or bowel wall thickening. Stool volume throughout colon is moderate. No acute colon finding. The appendix is unremarkable. No free air, free fluid or inflammatory stranding. No h ernia, mass or bulky lymphadenopathy. No suspicious bony findings. IMPRESSION: Contrast enhanced CT abdomen and pelvis showing no acute or emergent finding. Nonacute findings detailed the body of the report similar to comparison.
[2020-08-13] MEDS ORDERED: MEPERIDINE HCL 50 MG/ML ONE (14:30)
[2020-08-13 14:33] LABS: Urine Blood 2+ (Negative); Urine Glucose Negative (Negative); Urine Protein Negative (Negative); Urine pH 5.5 (5.0-7.0)
[2020-08-13] MEDS ORDERED: MAGNES/ALUMIN/SIMET 30ML UCUP ONE (14:51)
[2020-08-13] MEDS ORDERED: LIDOCAINE VISCOUS 2% SOLN 15 ML UDC ONE (14:52)
[2020-08-13 16:04] LABS: Urine Bacteria 20-50 /HPF (<20); Urine Mucus 2+ /HPF (NONE SEEN)
--- NOTE | 2020-08-13 16:20 | ER ---
Nurse's Notes [facility] Name: Misa Tony Age: 44 yrs Sex: Female : 1975 Arrival Date: 08/13/2020 Time: 12:28 Bed 4 Private MD: Diagnosis: UTI/ Urinary tract infection, site not specified; Vomiting;Diarrhea, unspecified;Abdominal pain, unspecified Presentation: 08/13 12:39 Chief complaint: Patient states: "I was here recently here for stomach pain and jd3 discharged. the pain never went away and now it hurts worse.". Coronavirus screen: At this time, the client does not indicate any symptoms associated with coronavirus-19. Ebola Screen: Patient negative for fever greater than or equal to 101.5 degrees Fahrenheit, and additional compatible Ebola Virus Disease symptoms. Initial Sepsis Screen: Does the patient meet any 2 criteria? No. Patient's initial sepsis screen is negative. Does the patient have a suspected source of infection? No. Patient's initial sepsis screen is negative. Risk Assessment: Do you want to hurt yourself or someone else? Patient reports no desire to harm self or others. Onset of symptoms was August 07, 2020. 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 - Social history:: Smoking status: Patient denies any tobacco usage or history of. Screenin:35 Abuse screen: Denies threats or abuse. Denies injuries from another. Nutritional hb screening: No deficits noted. Tuberculosis screening: No symptoms or risk factors identified. Fall Risk None identified. Assessment: 13:36 General: Appears in no apparent distress. uncomfortable, Behavior is calm, cooperative. hb Pain: Pain currently is 9 out of 10 on a pain scale. Neuro: Level of Consciousness is awake, alert, obeys commands, Oriented to person, place, time, situation. Cardiovascular: Patient's skin is warm and dry. Respiratory: Respiratory effort is even, unlabored, Respiratory pattern is regular, symmetrical. GI: Reports upper abdominal pain. : No signs and/or symptoms were reported regarding the genitourinary system. EENT: No signs and/or symptoms were reported regarding the EENT system. Derm: Skin is pink, warm \\T\\ dry. Musculoskeletal: No signs and/or symptoms reported regarding the musculoskeletal system. 14:24 Reassessment: Patient appears in no apparent distress at this time. Patient and/or hb family updated on plan of care and expected duration. Pain level reassessed. Patient is alert, oriented x 3, equal unlabored respirations, skin warm/dry/pink. 15:54 Reassessment: Patient appears in no apparent distress at this time. Patient and/or hb family updated on plan of care and expected duration. Pain level reassessed. Patient is alert, oriented x 3, equal unlabored respirations, skin warm/dry/pink. 16:30 Reassessment: Patient appears in no apparent distress at this time. Patient and/or hb family updated on plan of care and expected duration. Pain level reassessed. Patient is alert, oriented x 3, equal unlabored respirations, skin warm/dry/pink. Vital Signs: 12:42 BP 132 / 89; Pulse 100; Resp 20 S; Temp 97.4(TE); Pulse Ox 98% on R/A; Weight 88.45 kg jd3 (R); Height 5 ft. 5 in. (165.10 cm) (R); Pain 10/10; 14:34 BP 118 / 59; hb 15:17 BP 116 / 84; Pulse 87; Resp 16; Pulse Ox 99% ; sv 15:54 BP 108 / 57; Pulse 81; Resp 16; Pulse Ox 98% on R/A; Pain 7/10; hb 16:30 BP 118 / 68; Pulse 71; Resp 15; Pulse Ox 99% ; hb 12:42 Body Mass Index 32.45 (88.45 kg, 165.10 cm) jd3 ED Course: 12:28 Patient arrived in ED. mr 12:41 Triage completed. jd3 12:42 Arm band placed on. jd3 13:04 Noe Garza NP is PHCP. pm1 13:04 Ibrahima Sam MD is Attending Physician. pm1 13:32 Inserted saline lock: 20 gauge in left antecubital area, using aseptic technique. Blood hb collected. 13:35 Kathy Oconnell, RN is Primary Nurse. hb 13:35 Patient has correct armband on for positive identification. Allergy band placed. Call hb light in reach. Side rails up X 1. 13:58 CT Abd/Pelvis - IV Contrast Only In Process Unspecified. EDMS 16:48 No provider procedures requiring assistance completed. IV discontinued, intact, hb bleeding controlled, No redness/swelling at site. Administered Medications: 13:34 Drug: NS 0.9% 1000 ml Route: IV; Rate: 1000 ml; Site: left antecubital; hb 14:55 Follow up: Response: No adverse reaction; IV Status: Completed infusion; IV Intake: hb 1000ml 13:35 Drug: Phenergan (promethazine) 12.5 mg Route: IVP; Site: left antecubital; hb 14:00 Follow up: Response: No adverse reaction hb 13:35 Drug: Demerol (meperidine) 25 mg Route: IVP; Site: left antecubital; hb 14:00 Follow up: Response: No adverse reaction hb 14:10 Drug: Demerol (meperidine) 50 mg Route: IVP; Site: left antecubital; hb 14:34 Follow up: Response: No adverse reaction hb 14:33 Drug: GI Cocktail without - (Maalox Suspension 30 ml, Lidocaine Liquid 2 % 15 hb ml) Route: PO; 15:10 Follow up: Response: No adverse reaction sv 15:10 Drug: Phenergan (promethazine) 12.5 mg Route: IVP; Site: left antecubital; sv 15:52 Follow up: Response: No adverse reaction hb 16:24 Drug: Rocephin (cefTRIAXone) 1 grams Route: IV; Rate: calculated rate; Site: left hb antecubital; 16:25 Follow up: IV Status: Completed infusion; IV Intake: 10ml hb 16:42 Drug: Demerol (meperidine) 25 mg Route: IVP; Site: left antecubital; hb 16:47 Follow up: Response: Medication administered at discharge. hb 16:42 Drug: Phenergan (promethazine) 12.5 mg Route: IVP; Site: left antecubital; hb 16:47 Follow up: Response: Medication administered at discharge. hb Intake: 14:55 IV: 1000ml; Total: 1000ml. hb 16:25 IV: 10ml; Total: 1010ml. hb Outcome: 16:20 Discharge ordered by MD. pm1 16:48 Discharged to home ambulatory. hb 16:48 Condition: stable 16:48 Discharge instructions given to patient, Instructed on discharge instructions, follow up and referral plans. medication usage, Demonstrated understanding of instructions, follow-up care, medications, Prescriptions given X 4. 16:48 Patient left the ED. hb Signatures: Dispatcher [employer] EDMS Kera Galarza, VINOD BROCK RachidMelba mr GarzaNoe, WARD SECRETARY WARD SECRETARY pm1 Kathy Oconnell RN RN Oswaldo Kahn RN RN jd3 Corrections: (The following items were deleted from the chart) 12:43 12:42 Pulse 100bpm; Resp 20bpm; Spontaneous; Pulse Ox 98% RA; Temp 97.4F Temporal; jd3 88.45 kg Reported; Height 5 ft. 5 in. Reported; BMI: 32.4; Pain 10; jd3
--- NOTE | 2020-08-13 16:21 | EDPHYS ---
Physician Documentation [facility] Name: Misa Tony Age: 44 yrs Sex: Female : 1975 Arrival Date: 08/13/2020 Time: 12:28 Bed 4 Private MD: ED Physician Ibrahima Sam HPI: 08/13 13:36 This 44 yrs old Female presents to ER via Ambulatory with complaints of pm1 Abdominal Pain, Vomiting/Diarrhea. 13:36 The patient presents with abdominal pain. pm1 13:36 Onset: The symptoms/episode began/occurred 1 week(s) ago. The symptoms do not radiate. pm1 Associated signs and symptoms: Pertinent positives: nausea, vomiting, and diarrhea, Pertinent negatives: chest pain, constipation, shortness of breath. The symptoms are described as achy, constant, crampy. Modifying factors: The symptoms are alleviated by nothing, the symptoms are aggravated by nothing. Severity of pain: in the emergency department the pain is unchanged since prior ER visit. The patient has experienced similar episodes in the past, multiple times. The patient has been recently seen at the [facility] Emergency Department, last week, for similar complaints labs were performed, CT scan was performed. 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 - Social history:: Smoking status: Patient denies any tobacco usage or history of. ROS: 13:36 Constitutional: Negative for fever, chills, and weight loss, Cardiovascular: Negative pm1 for chest pain, palpitations, and edema, Respiratory: Negative for shortness of breath, cough, wheezing, and pleuritic chest pain. 13:36 Back: Negative for injury and pain, : Negative for injury, bleeding, discharge, and swelling, MS/Extremity: Negative for injury and deformity, Skin: Negative for injury, rash, and discoloration, Neuro: Negative for headache, weakness, numbness, tingling, and seizure. 13:36 Abdomen/GI: Positive for abdominal pain, nausea, vomiting, and diarrhea, Negative for constipation. 13:36 All other systems are negative. Exam: 13:36 Constitutional: This is a well developed, well nourished patient who is awake, alert, pm1 and in no acute distress. Head/Face: Normocephalic, atraumatic. 13:36 Back: No spinal tenderness. No costovertebral tenderness. Full range of motion. Skin: Warm, dry with normal turgor. Normal color with no rashes, no lesions, and no evidence of cellulitis. MS/ Extremity: Pulses equal, no cyanosis. Neurovascular intact. Full, normal range of motion. 13:36 Eyes: Exam is negative for acute changes, Extraocular movements: no acute changes. 13:36 ENT: Mouth: Lips: normal, Oral mucosa: normal, pink and intact, moist. 13:36 Cardiovascular: Rate: normal, Rhythm: regular, Pulses: no pulse deficits are appreciated. 13:36 Respiratory: Exam negative for acute changes, respiratory distress, shortness of breath, Breath sounds: are clear throughout. 13:36 Abdomen/GI: Inspection: abdomen appears normal, Palpation: soft, in all quadrants, mild abdominal tenderness, in the epigastric area. 13:36 Neuro: Exam negative for acute changes, Orientation: is normal, Mentation: is normal, Motor: is normal, moves all fours. Vital Signs: 12:42 BP 132 / 89; Pulse 100; Resp 20 S; Temp 97.4(TE); Pulse Ox 98% on R/A; Weight 88.45 kg jd3 (R); Height 5 ft. 5 in. (165.10 cm) (R); Pain 10/10; 14:34 BP 118 / 59; hb 15:17 BP 116 / 84; Pulse 87; Resp 16; Pulse Ox 99% ; sv 15:54 BP 108 / 57; Pulse 81; Resp 16; Pulse Ox 98% on R/A; Pain 7/10; hb 16:30 BP 118 / 68; Pulse 71; Resp 15; Pulse Ox 99% ; hb 12:42 Body Mass Index 32.45 (88.45 kg, 165.10 cm) j MDM: 13:14 Patient medically screened. pm1 16:19 Data reviewed: vital signs. Data interpreted: Pulse oximetry: on room air is 98 %. pm1 Interpretation: normal. 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 08/13 13:22 Order name: Basic Metabolic Panel; Complete Time: 14:08 pm1 08/13 13:22 Order name: CBC with Diff; Complete Time: 13:50 pm1 08/13 13:22 Order name: Hepatic Function; Complete Time: 14:08 pm1 08/13 13:22 Order name: Lipase; Complete Time: 14:08 pm1 08/13 14:33 Order name: Urine Dipstick-Ancillary; Complete Time: 14:34 EDMS 08/13 14:35 Order name: Urine Microscopic Only; Complete Time: 16:19 pm1 08/13 13:22 Order name: CT Abd/Pelvis - IV Contrast Only; Complete Time: 14:26 pm1 08/13 16:05 Order name: Urine Culture EDMS 08/13 13:22 Order name: IV Saline Lock; Complete Time: 13:35 pm1 08/13 13:22 Order name: Labs collected and sent; Complete Time: 13:35 pm1 Administered Medications: 13:34 Drug: NS 0.9% 1000 ml Route: IV; Rate: 1000 ml; Site: left antecubital; hb 14:55 Follow up: Response: No adverse reaction; IV Status: Completed infusion; IV Intake: hb 1000ml 13:35 Drug: Phenergan (promethazine) 12.5 mg Route: IVP; Site: left antecubital; hb 14:00 Follow up: Response: No adverse reaction hb 13:35 Drug: Demerol (meperidine) 25 mg Route: IVP; Site: left antecubital; hb 14:00 Follow up: Response: No adverse reaction hb 14:10 Drug: Demerol (meperidine) 50 mg Route: IVP; Site: left antecubital; hb 14:34 Follow up: Response: No adverse reaction hb 14:33 Drug: GI Cocktail without - (Maalox Suspension 30 ml, Lidocaine Liquid 2 % 15 hb ml) Route: PO; 15:10 Follow up: Response: No adverse reaction sv 15:10 Drug: Phenergan (promethazine) 12.5 mg Route: IVP; Site: left antecubital; sv 15:52 Follow up: Response: No adverse reaction hb 16:24 Drug: Rocephin (cefTRIAXone) 1 grams Route: IV; Rate: calculated rate; Site: left hb antecubital; 16:25 Follow up: IV Status: Completed infusion; IV Intake: 10ml hb 16:42 Drug: Demerol (meperidine) 25 mg Route: IVP; Site: left antecubital; hb 16:47 Follow up: Response: Medication administered at discharge. hb 16:42 Drug: Phenergan (promethazine) 12.5 mg Route: IVP; Site: left antecubital; hb 16:47 Follow up: Response: Medication administered at discharge. hb Disposition: 17:27 Co-signature as Attending Physician, Ibrahima Sam MD. rn Disposition: 08/13/20 16:20 Discharged to Home. Impression: Abdominal pain, unspecified, UTI/ Urinary tract infection, site not specified, Vomiting, Diarrhea, unspecified. - Condition is Stable. - Discharge Instructions: Abdominal Pain, Adult, Urinary Tract Infection, Adult, Viral Gastroenteritis, Adult, Food Choices to Help Relieve Diarrhea, Adult, Nausea and Vomiting, Adult. - Prescriptions for Bentyl 20 mg Oral Tablet - take 1 tablet by ORAL route every 6 hours As needed; 20 tablet. Bactrim DS 800- 160 mg Oral Tablet - take 1 tablet by ORAL route every 12 hours for 10 days; 20 tablet. Phenergan 25 mg Rectal Suppository - insert 1 suppository by RECTAL route every 6 hours As needed; 12 suppository. promethazine 25 mg Oral Tablet - take 1 tablet by ORAL route every 6 hours As needed; 20 tablet. - Medication Reconciliation Form, Thank You Letter, Antibiotic Education, Prescription Opioid Use, Work release form form. - Follow up: Emergency Department; When: As needed; Reason: Worsening of condition. Follow up: Private Physician; When: 2 - 3 days; Reason: Recheck today's complaints, Continuance of care, Re-evaluation by your physician. - Problem is new. - Symptoms have improved. Signatures: Dispatcher [employer] EDKera Fitzpatrick RN RN Ibrahima Mcintosh MD MD rn Marinas, Patrick, ROLL MACHINE OPERATOR ROLL MACHINE OPERATOR pm1 Kathy Oconnell RN RN hb Davies, Jonathon RN RN jd3 Corrections: (The following items were deleted from the chart) 16:48 16:20 08/13/2020 16:20 Discharged to Home. Impression: Unspecified abdominal hb painUrinary tract infection, site not specified; Vomiting; Diarrhea, unspecified. Condition is Stable. Forms are Medication Reconciliation Form, Thank You Letter, Antibiotic Education, Prescription Opioid Use. Follow up: Emergency Department; When: As needed; Reason: Worsening of condition. Follow up: Private Physician; When: 2 - 3 days; Reason: Recheck today's complaints, Continuance of care, Re-evaluation by your physician. Problem is new. Symptoms have improved. pm1
[2020-08-13] MEDS ORDERED: CEFTRIAXONE/SWI 1gm 1 GM/10 ML SYR ONE (16:44)
[2020-08-13 17:39] VITALS: TEMP 97.4
[2020-08-13 17:45] VITALS: BP 118/68; O2SAT 99
== END 2020-08-13 16:48 | disposition home or self-care (01) ==
LOC: ER 12:25
DX: N39.0 Urinary tract infection, site not specified (principal); R11.10 Vomiting, unspecified; R19.7 Diarrhea, unspecified; I10 Essential (primary) hypertension; F31.9 Bipolar disorder, unspecified; Z88.5 Allergy status to narcotic agent
CPT/HCPCS: 87088; 85025; 87086; 80048; 36415; 80076; 83690; 74177; Q9967; J2550 ×3; J2175 ×3; J0696; J7030; 81003; 81015; 96361; 96374; 96375; 99284

== ENCOUNTER 2020-08-16 09:23 | Emergency (ER) | payer BC ==
[2020-08-16 10:02] LABS: Urine Blood Trace-intact (Negative); Urine Glucose Negative (Negative); Urine Protein Negative (Negative)
[2020-08-16 10:11] LABS: Absolute Lymphocytes (CBC) 3.3 K/uL (0.7-4.9); Basophils % 0.6 % (0-1.3); Hematocrit 37.8 % (36.0-45.0); MPV 9.8 fL (7.6-11.3); RBC Red Blood Cell Count 4.23 M/uL (3.86-4.86)
[2020-08-16] MEDS ORDERED: ONDANSETRON 4 MG/2 ML VIAL ONE (10:14)
[2020-08-16] MEDS ORDERED: HYDROMORPHONE HCL 1 MG/ML INJ ONE ×2 (10:14→10:51)
[2020-08-16] MEDS ORDERED: FAMOTIDINE 20 MG/2 ML VIAL IV ONE (10:15)
[2020-08-16] MEDS ORDERED: NA CHLORIDE 0.9% 1,000 ML ONE (10:15)
--- NOTE | 2020-08-16 11:25 | RAD REPORT ---
EXAM DESCRIPTION: CTAbdomen Pelvis W Contrast - 08/16/2020 11:10 am CLINICAL HISTORY: Abdominal pain. ABD PAIN COMPARISON: Abdomen Pelvis W Contrast dated 08/13/2020; Abdomen Pelvis W Contrast dated 08/08/2020 ; Abdomen Pelvis W Contrast dated 05/24/2020; Abdomen Pelvis W Contrast dated 10/27/2017 TECHNIQUE: Biphasic CT imaging of the abdomen and pelvis was performed with 100 ml non-ionic IV cont rast. All CT scans are performed using dose optimization technique as appropriate and may include automated exposure control or mA/KV adjustment according to patient size. FINDINGS: The lung bases are clear. The liver is mildly enlarged in size with diffuse fatty infiltration. Cholecystectomy clips. Spleen, pancreas, adrenal glands and kidneys are within normal limits. No bowel obstruction, free air, free fluid or abscess. Mild sigmoid diverticulosis without diverticul itis. The appendix is normal. No evidence of significant lymphadenopathy. No suspicious bony findings. IMPRESSION: No acute intra-abdominal or pelvic finding. Prominent diffuse fatty liver, similar to prior studies.
--- NOTE | 2020-08-16 11:30 | RAD REPORT ---
EXAM DESCRIPTION: RAD - Abdomen W Erect - 08/16/2020 11:24 am CLINICAL HISTORY: ABD PAIN Pain COMPARISON: Abdomen Pelvis W Contrast dated 08/13/2020 FINDINGS: The bowel gas pattern is non-obstructive. No evidence of free air or pneumatosis. No suspi cious calcifications. Cholecystectomy clips. No significant bony findings. IMPRESSION: Negative examination.
[2020-08-16 12:09] LABS: ALT/SGPT 82 U/L (12-78); AST/SGOT 60 U/L (15-37); Albumin 3.5 g/dL (3.4-5.0); Alkaline Phosphatase 96 U/L (45-117); BUN Blood Urea Nitrogen 4 mg/dL (7-18); Bicarbonate 31 mmol/L (21-32); Bilirubin Direct 0.1 mg/dL (0-0.2); Bilirubin Total 0.4 mg/dL (0.2-1.0); Glucose Level 94 mg/dL (74-106); Lipase 45 U/L (73-393); Potassium 3.3 mmol/L (3.5-5.1); Protein, Total 7.8 g/dL (6.4-8.2); Sodium Level 141 mmol/L (136-145)
[2020-08-16] MEDS ORDERED: MEPERIDINE HCL 50 MG/ML ONE (12:44)
[2020-08-16] MEDS ORDERED: METOCLOPRAMIDE 10 MG/2mL INJ ONE (12:45)
[2020-08-16] MEDS ORDERED: PANTOPRAZOLE 40 MG INJ ONE (12:45)
[2020-08-16] MEDS ORDERED: NA CHLORIDE 0.9% 50 ML ONE (12:45)
--- NOTE | 2020-08-16 12:57 | EDPHYS ---
Physician Documentation [facility] Name: Misa Tony Age: 44 yrs Sex: Female : 1975 Arrival Date: 08/16/2020 Time: 09:24 Bed 20 Private MD: Aleta Araujo ED Physician Carlos Pradhan HPI: 08/16 12:14 This 44 yrs old Female presents to ER via Ambulatory with complaints of kadeem Abdominal Pain, Vomiting/Diarrhea. 12:14 The patient presents to the emergency department with nausea, vomiting, abdominal pain, kadeem of the epigastric area, right upper quadrant and left upper quadrant. Onset: The symptoms/episode began/occurred 5 day(s) ago. Possible causes: unknown. The symptoms are aggravated by. Associated signs and symptoms: The patient has no apparent associated signs or symptoms. Severity of symptoms: At their worst the symptoms were moderate in the emergency department the symptoms are unchanged. The patient has not experienced similar symptoms in the past. Historical: - Allergies: 09:38 Morphine; ph - PMHx: 09:38 Bipolar disorder; blood clot in Axilla; Endometrosis; gastritis; GERD; Hypertension; ph Pancreatitis; - Immunization history:: Client reports receiving the 2nd dose of the Covid vaccine. - Social history:: Smoking status: Patient denies any tobacco usage or history of. ROS: 12:15 Constitutional: Negative for fever, chills, and weight loss, Eyes: Negative for injury, kadeem pain, redness, and discharge, ENT: Negative for injury, pain, and discharge, Neck: Negative for injury, pain, and swelling, Cardiovascular: Negative for chest pain, palpitations, and edema, Respiratory: Negative for shortness of breath, cough, wheezing, and pleuritic chest pain, Back: Negative for injury and pain, : Negative for injury, bleeding, discharge, and swelling, MS/Extremity: Negative for injury and deformity, Skin: Negative for injury, rash, and discoloration, Neuro: Negative for headache, weakness, numbness, tingling, and seizure, Psych: Negative for depression, anxiety, suicide ideation, homicidal ideation, and hallucinations, Allergy/Immunology: Negative for hives, rash, and allergies, Endocrine: Negative for neck swelling, polydipsia, polyuria, polyphagia, and marked weight changes, Hematologic/Lymphatic: Negative for swollen nodes, abnormal bleeding, and unusual bruising. 12:15 Abdomen/GI: Positive for abdominal pain, nausea and vomiting, of the epigastric area, right upper quadrant and left upper quadrant. Exam: 12:15 Constitutional: This is a well developed, well nourished patient who is awake, alert, kadeem and in no acute distress. Head/Face: Normocephalic, atraumatic. Eyes: Pupils equal round and reactive to light, extra-ocular motions intact. Lids and lashes normal. Conjunctiva and sclera are non-icteric and not injected. Cornea within normal limits. Periorbital areas with no swelling, redness, or edema. ENT: Nares patent. No nasal discharge, no septal abnormalities noted. Tympanic membranes are normal and external auditory canals are clear. Oropharynx with no redness, swelling, or masses, exudates, or evidence of obstruction, uvula midline. Mucous membranes moist. Neck: Trachea midline, no thyromegaly or masses palpated, and no cervical lymphadenopathy. Supple, full range of motion without nuchal rigidity, or vertebral point tenderness. No Meningismus. Chest/axilla: Normal chest wall appearance and motion. Nontender with no deformity. No lesions are appreciated. Cardiovascular: Regular rate and rhythm with a normal S1 and S2. No gallops, murmurs, or rubs. Normal PMI, no JVD. No pulse deficits. Respiratory: Lungs have equal breath sounds bilaterally, clear to auscultation and percussion. No rales, rhonchi or wheezes noted. No increased work of breathing, no retractions or nasal flaring. Back: No spinal tenderness. No costovertebral tenderness. Full range of motion. Skin: Warm, dry with normal turgor. Normal color with no rashes, no lesions, and no evidence of cellulitis. MS/ Extremity: Pulses equal, no cyanosis. Neurovascular intact. Full, normal range of motion. Neuro: Awake and alert, GCS 15, oriented to person, place, time, and situation. Cranial nerves II-XII grossly intact. Motor strength 5/5 in all extremities. Sensory grossly intact. Cerebellar exam normal. Normal gait. Psych: Awake, alert, with orientation to person, place and time. Behavior, mood, and affect are within normal limits. 12:15 Abdomen/GI: Inspection: abdomen appears normal, Bowel sounds: normal, in all quadrants, Palpation: moderate abdominal tenderness, in the epigastric area, right upper quadrant and left upper quadrant, Liver: no appreciated palpable abnormalities, Hernia: not appreciated. 12:15 Musculoskeletal/extremity: DVT Exam: No signs of deep vein thrombosis. no pain, no swelling, no tenderness, negative Homans' sign noted on exam, no appreciated bluish discoloration, no erythema, no increased warmth. 13:11 ECG was reviewed by the Attending Physician. [facility] Vital Signs: 09:37 BP 130 / 79; Pulse 81; Resp 18; Temp 98.2; Pulse Ox 99% on R/A; Weight 86.18 kg; Height ph 5 ft. 5 in. (165.10 cm); Pain 10/10; 10:30 BP 112 / 85; Pulse 80; Resp 17; Pulse Ox 98% ; rb3 12:32 BP 126 / 80; Pulse 82; Resp 18; Pulse Ox 97% on R/A; ph 13:30 BP 136 / 92; Pulse 72; Resp 17; Pulse Ox 98% ; rb3 14:15 BP 129 / 81; Pulse 88; Resp 17; Pulse Ox 99% ; rb3 09:37 Body Mass Index 31.62 (86.18 kg, 165.10 cm) ph MDM: 09:41 Patient medically screened. kadeem 13:10 Differential diagnosis: gastritis, pancreatitis, viral gastroenteritis, kadeem gastroenteritis, gastritis, gastroesophageal reflux disease, GI Bleed, non-specific abd pain, pancreatitis, Peptic Ulcer Disease, urinary tract infection. Data reviewed: vital signs, nurses notes, lab test result(s), EKG, radiologic studies, CT scan, plain films. Data interpreted: lead generation specialist: rate is 82 beats/min, rhythm is regular, Pulse oximetry: on room air is 97 %. Test interpretation: by ED physician or midlevel provider: ECG, plain radiologic studies. Counseling: I had a detailed discussion with the patient and/or guardian regarding: the historical points, exam findings, and any diagnostic results supporting the discharge/admit diagnosis, lab results, radiology results, the need for outpatient follow up, for definitive care, a family practitioner, a assistant film editor. 08/16 09:35 Order name: Basic Metabolic Panel; Complete Time: 12:13 [facility] 08/16 09:35 Order name: CBC with Diff; Complete Time: 10:29 [facility] 08/16 09:35 Order name: Hepatic Function; Complete Time: 12:13 [facility] 08/16 09:35 Order name: Lipase; Complete Time: 12:13 [facility] 08/16 10:02 Order name: Urine Dipstick-Ancillary; Complete Time: 10:29 EDMS 08/16 10:03 Order name: Urine --Ancillary (enter results); Complete Time: 12:05 em1 07 09:35 Order name: Abdomen with Erect XRAY; Complete Time: 12:05 [facility] 08/16 10:29 Order name: CT Abd/Pelvis - IV Contrast Only; Complete Time: 12:05 [facility] 08/16 09:35 Order name: IV Saline Lock; Complete Time: 09:55 [facility] 08/16 09:35 Order name: Labs collected and sent; Complete Time: 09:55 [facility] 08/16 09:35 Order name: Urine Dipstick-Ancillary (obtain specimen); Complete Time: 10:11 [facility] 08/16 09:35 Order name: Urine Test (obtain specimen); Complete Time: 10:03 [facility] 08/16 12:56 Order name: EKG; Complete Time: 12:56 [facility] 08/16 12:56 Order name: EKG - Nurse/Tech; Complete Time: 13:15 [facility] EC:11 Rate is 73 beats/min. Rhythm is regular. QRS Deloit is Normal. VT interval is normal. QRS kadeem interval is normal. QT interval is normal. No Q waves. T waves are Normal. No ST changes noted. Clinical impression: NSR w/ Non-specific ST/T Changes and No evidence of ischemia. Interpreted by me. Reviewed by me. Administered Medications: 10:00 Drug: NS 0.9% 1000 ml Route: IV; Rate: 1 bolus; Site: right antecubital; rb3 11:22 Follow up: IV Status: Completed infusion rb3 10:00 Drug: Pepcid (famotidine) 20 mg Route: IVP; Site: right antecubital; rb3 10:15 Follow up: Response: No adverse reaction rb3 10:00 Drug: Dilaudid (HYDROmorphone) 1 mg Route: IVP; Site: right antecubital; rb3 10:15 Follow up: Response: No adverse reaction; Pain is unchanged, physician notified rb3 10:00 Drug: Zofran (Ondansetron) 4 mg Route: IVP; Site: right antecubital; rb3 10:15 Follow up: Response: No adverse reaction; Nausea is decreased rb3 10:33 Drug: Dilaudid (HYDROmorphone) 1 mg Route: IVP; Site: right antecubital; rb3 10:45 Follow up: Response: No adverse reaction; Pain is unchanged, physician notified; No new rb3 order received at this time. 12:32 Drug: Reglan (metoCLOPramide) 10 mg Route: IVP; Site: right antecubital; ph 12:48 Follow up: Response: No adverse reaction rb3 12:32 Drug: Demerol (meperidine) 50 mg Route: IVP; Site: right antecubital; ph 12:48 Follow up: Response: No adverse reaction; Pain is decreased rb3 12:32 Drug: ProTONIX (pantoprazole) 40 mg Route: IVP; Site: right antecubital; ph 12:48 Follow up: Response: No adverse reaction rb3 14:18 Not Given (Patient Refused): Zofran (Ondansetron) 2 mg IVP once; over 2 minutes rb3 Disposition Summary: 08/16/20 12:56 Discharge Ordered Location: Home kadeem Problem: new kadeem Symptoms: have improved kadeem Condition: Stable kadeem Diagnosis - Abdominal tenderness kadeem - Acute gastritis kadeem - Gastroparesis kademe - Vomiting kadeem Followup: kadeem - With: Private Physician - When: 2 - 3 days - Reason: Recheck today's complaints, Continuance of care, Re-evaluation by your physician Followup: kadeem - With: - When: 2 - 3 days - Reason: Recheck today's complaints, Continuance of care, Re-evaluation by your physician Discharge Instructions: - Discharge Summary Sheet kadeem - Abdominal Pain, Adult kadeem - Gastritis, Adult kadeem - Gastritis, Adult, [id number] kadeem - Abdominal Pain, Adult, [id number] kadeem - Gastroparesis kadeem - Form - Return To Work rb3 Forms: - Medication Reconciliation Form kadeem - Thank You Letter kadeem - Antibiotic Education kadeem - Prescription Opioid Use kadeem - Work release form em1 Prescriptions: - Protonix 40 mg Oral Tablet - take 1 tablet by ORAL route once daily; 30 tablet; Refills: 0, Product kadeem Selection Permitted - Zofran 4 mg Oral Tablet - take 1 tablet by ORAL route every 12 hours As needed; 20 tablet; Refills: 0, [facility] Product Selection Permitted - promethazine 25 mg Oral Tablet - take 1 tablet by ORAL route every 6 hours As needed; 20 tablet; Refills: 0, kadeem Product Selection Permitted - dicyclomine 20 mg Oral tablet - take 1 tablet by ORAL route 4 times per day; 20 tablet; Refills: 0, Product kadeem Selection Permitted Signatures: Dispatcher [employer] Carlos Lopez MD MD cha Hall, Patricia RN RN Rosa Goyal RN RN rb3
--- NOTE | 2020-08-16 12:57 | ER ---
Nurse's Notes [facility] Name: Misa Tony Age: 44 yrs Sex: Female : 1975 Arrival Date: 08/16/2020 Time: 09:24 Bed 20 Private MD: Aleta Araujo Diagnosis: Abdominal tenderness;Acute gastritis;Gastroparesis;Vomiting Presentation: 08/16 09:37 Chief complaint: Patient states: Upper abdominal pain, n/v/d x approx 1 and a half ph weeks, denies fever. Coronavirus screen: Client denies travel out of the [place] in the last 14 days. At this time, the client does not indicate any symptoms associated with coronavirus-19. Ebola Screen: No symptoms or risks identified at this time. Initial Sepsis Screen: Does the patient meet any 2 criteria? No. Patient's initial sepsis screen is negative. Does the patient have a suspected source of infection? No. Patient's initial sepsis screen is negative. Risk Assessment: Do you want to hurt yourself or someone else? Patient reports no desire to harm self or others. Onset of symptoms was August 16, 2020. 09:37 Method Of Arrival: Ambulatory ph 09:37 Acuity: ELADIO 3 ph Historical: - Allergies: 09:38 Morphine; ph - PMHx: 09:38 Bipolar disorder; blood clot in Axilla; Endometrosis; gastritis; GERD; Hypertension; ph Pancreatitis; - Immunization history:: Client reports receiving the 2nd dose of the Covid vaccine. - Social history:: Smoking status: Patient denies any tobacco usage or history of. Screenin:50 Abuse screen: Denies threats or abuse. Nutritional screening: No deficits noted. rb3 Tuberculosis screening: No symptoms or risk factors identified. Fall Risk None identified. Assessment: 09:50 General: Appears uncomfortable, Behavior is calm, cooperative, Denies fever. Pain: rb3 Complains of pain in epigastric area, right upper quadrant and left upper quadrant Pain currently is 8 out of 10 on a pain scale. Neuro: Level of Consciousness is awake, alert, obeys commands, Oriented to person, place, time, situation. Cardiovascular: Patient's skin is warm and dry. Respiratory: Airway is patent Respiratory effort is even, unlabored, Respiratory pattern is regular, symmetrical. GI: Reports diarrhea, nausea, vomiting. : No signs and/or symptoms were reported regarding the genitourinary system. Derm: Skin is pink, warm \T\ dry. 10:00 Reassessment: Patient appears in no apparent distress at this time. Patient and/or rb3 family updated on plan of care and expected duration. Pain level reassessed. Patient is alert, oriented x 3, equal unlabored respirations, skin warm/dry/pink. 11:00 Reassessment: Patient appears in no apparent distress at this time. Patient and/or rb3 family updated on plan of care and expected duration. Pain level reassessed. 12:32 Reassessment: Patient appears in no apparent distress at this time. Patient and/or ph family updated on plan of care and expected duration. Pain level reassessed. Patient is alert, oriented x 3, equal unlabored respirations, skin warm/dry/pink. 13:30 Reassessment: Discharge pending due to Dr. Pradhan wanting to speak with the pt before rb3 she is discharged. 14:10 Reassessment: Patient appears in no apparent distress at this time. Patient and/or rb3 family updated on plan of care and expected duration. Pain level reassessed. Patient is alert, oriented x 3, equal unlabored respirations, skin warm/dry/pink. Discharge pending due to Dr. Pradhan to speak with pt. Vital Signs: 09:37 BP 130 / 79; Pulse 81; Resp 18; Temp 98.2; Pulse Ox 99% on R/A; Weight 86.18 kg; Height ph 5 ft. 5 in. (165.10 cm); Pain 10/10; 10:30 BP 112 / 85; Pulse 80; Resp 17; Pulse Ox 98% ; rb3 12:32 BP 126 / 80; Pulse 82; Resp 18; Pulse Ox 97% on R/A; ph 13:30 BP 136 / 92; Pulse 72; Resp 17; Pulse Ox 98% ; rb3 14:15 BP 129 / 81; Pulse 88; Resp 17; Pulse Ox 99% ; rb3 09:37 Body Mass Index 31.62 (86.18 kg, 165.10 cm) ph ED Course: 09:24 Patient arrived in ED. am2 09:24 Aleta Araujo FNP-C is Private Physician. am2 09:33 Carlos Pradhan MD is Attending Physician. kadeem 09:38 Triage completed. ph 09:38 Arm band placed on Patient placed in an exam room. ph 09:50 Patient has correct armband on for positive identification. Bed in low position. Call rb3 light in reach. Side rails up X 1. Pulse ox on. NIBP on. 09:55 Inserted saline lock: 18 gauge in right antecubital area, using aseptic technique. tr6 Blood collected. 10:03 Rosa Goyal, RN is Primary Nurse. rb3 11:10 CT Abd/Pelvis - IV Contrast Only In Process Unspecified. EDMS 11:24 Abdomen with Erect XRAY In Process Unspecified. EDMS 12:56 Monica Mahoney MD is Referral Physician. kadeem 14:22 No provider procedures requiring assistance completed. IV discontinued, intact, rb3 bleeding controlled, No redness/swelling at site. Pressure dressing applied. Administered Medications: 10:00 Drug: NS 0.9% 1000 ml Route: IV; Rate: 1 bolus; Site: right antecubital; rb3 11:22 Follow up: IV Status: Completed infusion rb3 10:00 Drug: Pepcid (famotidine) 20 mg Route: IVP; Site: right antecubital; rb3 10:15 Follow up: Response: No adverse reaction rb3 10:00 Drug: Dilaudid (HYDROmorphone) 1 mg Route: IVP; Site: right antecubital; rb3 10:15 Follow up: Response: No adverse reaction; Pain is unchanged, physician notified rb3 10:00 Drug: Zofran (Ondansetron) 4 mg Route: IVP; Site: right antecubital; rb3 10:15 Follow up: Response: No adverse reaction; Nausea is decreased rb3 10:33 Drug: Dilaudid (HYDROmorphone) 1 mg Route: IVP; Site: right antecubital; rb3 10:45 Follow up: Response: No adverse reaction; Pain is unchanged, physician notified; No new rb3 order received at this time. 12:32 Drug: Reglan (metoCLOPramide) 10 mg Route: IVP; Site: right antecubital; ph 12:48 Follow up: Response: No adverse reaction rb3 12:32 Drug: Demerol (meperidine) 50 mg Route: IVP; Site: right antecubital; ph 12:48 Follow up: Response: No adverse reaction; Pain is decreased rb3 12:32 Drug: ProTONIX (pantoprazole) 40 mg Route: IVP; Site: right antecubital; ph 12:48 Follow up: Response: No adverse reaction rb3 14:18 Not Given (Patient Refused): Zofran (Ondansetron) 2 mg IVP once; over 2 minutes rb3 Intake: Outcome: 12:56 Discharge ordered by MD. quan 14:22 Discharged to home ambulatory. rb3 14:22 Condition: stable 14:22 Discharge instructions given to patient, Instructed on discharge instructions, follow up and referral plans. medication usage, Demonstrated understanding of instructions, follow-up care, medications, Prescriptions given X 4. 14:23 Patient left the ED. iw Signatures: Dispatcher [employer] EDMS Carlos Pradhan MD MD cha Williams, Irene, RN VINOD iw Kimberli Cooley RN Anjali Garcia ph, Rebecca, RN RN rb3 Nadine Rodriguez RN RN tr6
[2020-08-16 14:34] VITALS: TEMP 98.2
[2020-08-16 14:41] VITALS: BP 136/92; O2SAT 98
--- NOTE | 2020-08-18 10:29 | EKG ---
Test Date: 2020-08-16 Test Time: 12:59:56 Cable Tool Driller: BRYSON MEASUREMENT RESULTS: Intervals: Rate: 73 AK: 164 QRSD: 90 QT: 408 QTc: 449 [place]: P: 38 AK: 164 QRS: 9 T: -6 INTERPRETIVE STATEMENTS: Normal sinus rhythm Anterior infarct, age undetermined Abnormal ECG Electronically Signed On 08-18-20 10:25:59 CDT by Kj Barker
== END 2020-08-16 14:23 | disposition home or self-care (01) ==
LOC: ER 09:23
DX: K29.00 Acute gastritis without bleeding (principal); K31.84 Gastroparesis; R11.10 Vomiting, unspecified; I10 Essential (primary) hypertension; Z88.5 Allergy status to narcotic agent
CPT/HCPCS: 96361; 93005; 85025; 80048; 36415; 81025; 80076; 81003; 83690; 74177; 74019; 96375; 96374; 99284; Q9967; J2765; C9113; J2175; J1170 ×2; J7030; J2405

== ENCOUNTER 2020-11-20 10:27 | Emergency (ER) | payer BC ==
[2020-11-20 10:54] LABS: Urine Blood Trace-intact (Negative); Urine Glucose Negative (Negative); Urine Protein Negative (Negative); Urine pH 8.5 (5.0-7.0)
[2020-11-20 11:18] LABS: Absolute Lymphocytes (CBC) 3.5 K/uL (0.7-4.9); Basophils % 0.9 % (0-1.3); Hematocrit 40.6 % (36.0-45.0); Lymphocytes % 36.2 % (15.3-44.8); RBC Red Blood Cell Count 4.49 M/uL (3.86-4.86)
[2020-11-20 11:24] LABS: Albumin 3.7 g/dL (3.4-5.0); Bilirubin Direct 0.1 mg/dL (0-0.2); Bilirubin Total 0.3 mg/dL (0.2-1.0); Protein, Total 8.3 g/dL (6.4-8.2)
[2020-11-20] MEDS ORDERED: MEPERIDINE HCL 50 MG/ML ONE ×2 (11:28→12:40)
[2020-11-20] MEDS ORDERED: NA CHLORIDE 0.9% 1,000 ML ONE (11:29)
[2020-11-20] MEDS ORDERED: ONDANSETRON 4 MG/2 ML VIAL ONE (11:29)
--- NOTE | 2020-11-20 11:49 | RAD REPORT ---
EXAM DESCRIPTION: CTAbdomen Pelvis W Contrast - 11/20/2020 11:35 am CLINICAL HISTORY: lower abd pain;Abd pain COMPARISON: Abdomen Pelvis W Contrast dated 08/16/2020; Abdomen Pelvis W Contrast dated 08/13/2020; Abdomen Pelvis W Contrast dated 08/08/2020; Abdomen Pelvis W Contrast dated 05/24/2020 TECHNIQUE: CT of the abdomen and pelvis was performed. All CT scans are performed using dose optimization technique as appropriate and may include automated exposure control or mA/KV adjustment according to patient size. FINDINGS: Lower chest: No acute abnormality. Liver: Hepatic steatosis. Biliary: No biliary ductal dilatation. Cholecystectomy Stomach: No significant focal abnormality. Duodenum: No significant focal abnormality. Pancreas: No significant abnormality. Spleen: No significant abnormality. Adrenal: No suspicious lesions. Kidney/ureter: No hydronephrosis. No renal calculi. Retroperitoneum: No retroperitoneal adenopathy. Vascular: No aneurysm. Bowel: No significant focal abnormality. Peritoneum: No ascites or free air. Bladder: Grossly unremarkable. Reproductive: No adnexal masses. Bones: No acute fracture. Other: n/a IMPRESSION: No acute intra-abdominal or pelvic finding. Hepatic steatosis.
[2020-11-20] MEDS ORDERED: PROMETHAZINE INJ 25 MG/ML AMP ONE (12:41)
--- NOTE | 2020-11-20 13:48 | ER ---
Nurse's Notes [facility] Name: Misa Tony Age: 45 yrs Sex: Female : 1975 Arrival Date: 11/20/2020 Time: 10:30 Bed 6 Private MD: Diagnosis: Abdominal pain, unspecified;Diarrhea, unspecified;Nausea with vomiting, unspecified Presentation: 11/20 10:31 Chief complaint: Patient states: abd pain, n/v x 2 days. Coronavirus screen: Vaccine sv status: Patient reports receiving the 2nd dose of the covid vaccine. Patient reports receiving the 1st dose of the Covid vaccine. Client denies travel out of the [place] in the last 14 days. Ebola Screen: No symptoms or risks identified at this time. Risk Assessment: Do you want to hurt yourself or someone else? Patient reports no desire to harm self or others. Onset of symptoms was November 18, 2020. 10:31 Method Of Arrival: Ambulatory sv 10:31 Acuity: ELADIO 3 sv 10:32 Initial Sepsis Screen: Does the patient meet any 2 criteria? No. Patient's initial sv sepsis screen is negative. Does the patient have a suspected source of infection? Yes: Acute abdominal pain. Triage Assessment: 10:33 General: Appears in no apparent distress. uncomfortable, Behavior is calm, cooperative, sv appropriate for age. Neuro: Level of Consciousness is awake, alert, obeys commands, Gait is steady. Respiratory: Respiratory effort is even, unlabored. Historical: - Allergies: 10:31 Morphine; sv - PMHx: 10:31 Bipolar disorder; blood clot in Axilla; Endometrosis; gastritis; GERD; Hypertension; sv Pancreatitis; - PSHx: 10:49 Cholecystectomy; Hysterectomy; sv - Immunization history:: Adult Immunizations up to date. - Social history:: Smoking status: Patient denies any tobacco usage or history of. - Family history:: not pertinent. - Hospitalizations: : No recent hospitalization is reported. Assessment: 11:10 Reassessment: No changes from previously documented assessment. General: Appears ch5 uncomfortable, Behavior is cooperative. Pain: Complains of pain in abdomen. GI: Reports diarrhea, nausea, vomiting. 13:26 Reassessment: Patient appears in no apparent distress at this time. No changes from hb previously documented assessment. Patient and/or family updated on plan of care and expected duration. Pain level reassessed. Vital Signs: 10:32 BP 115 / 82; Pulse 70; Resp 20; Temp 97; Pulse Ox 100% ; Weight 83.91 kg; Height 5 ft. sv 5 in. (165.10 cm); Pain 9/10; 12:15 BP 123 / 78; Pulse 78; Resp 18; Pulse Ox 99% ; Pain 10/10; ch5 10:32 Body Mass Index 30.78 (83.91 kg, 165.10 cm) sv ED Course: 10:30 Patient arrived in ED. ds1 10:31 Triage completed. sv 10:31 Arm band placed on. sv 10:50 Ibrahima Sam MD is Attending Physician. rn 11:02 Uli Thao RN is Primary Nurse. ch5 11:10 Inserted saline lock: 20 gauge in right antecubital area, using aseptic technique. ch5 11:11 No provider procedures requiring assistance completed. ch5 11:34 CT Abd/Pelvis - IV Contrast Only In Process Unspecified. EDMS 14:21 IV discontinued, intact, bleeding controlled, No redness/swelling at site. hb Administered Medications: 11:09 Drug: Zofran (Ondansetron) 4 mg Route: IVP; Site: right antecubital; ch5 13:26 Follow up: Response: No adverse reaction hb 11:09 Drug: NS 0.9% 1000 ml Route: IV; Rate: 1000 ml; Site: right antecubital; ch5 11:09 Drug: Demerol (meperidine) 50 mg Route: IVP; Site: right antecubital; ch5 12:00 Follow up: Response: No adverse reaction hb 12:23 Drug: Demerol (meperidine) 50 mg Route: IVP; Site: right antecubital; ch5 13:26 Follow up: Response: No adverse reaction hb 12:23 Drug: Phenergan (promethazine) 12.5 mg Route: IVP; Site: right antecubital; ch5 13:26 Follow up: Response: No adverse reaction hb 14:18 Drug: LoMOTIL (diphenoxylate-atropine) 2 tabs Route: PO; hb 14:18 Follow up: Response: Medication administered at discharge. hb Outcome: 13:48 Discharge ordered by . rn 14:21 Discharged to home ambulatory. hb 14:21 Condition: stable 14:21 Discharge instructions given to patient, Instructed on discharge instructions, follow up and referral plans. medication usage, Demonstrated understanding of instructions, follow-up care, medications, Prescriptions given X 1. 14:22 Patient left the ED. hb Signatures: Dispatcher [employer] EDMS Kera Galarza RN RN MillsIsadora ds1 Ibrahima Sam MD MD rn Baxter, Heather, RN RN Uli Thao RN RN ch5 Corrections: (The following items were deleted from the chart) 10:34 10:32 Pulse 70bpm; Resp 20bpm; Pulse Ox 100%; Temp 97F; 83.91 kg; Height 5 ft. 5 in.; sv BMI: 30.7; Pain 9/10; sv
--- NOTE | 2020-11-20 13:49 | EDPHYS ---
Physician Documentation [facility] Name: Misa Tony Age: 45 yrs Sex: Female : 1975 Arrival Date: 11/20/2020 Time: 10:30 Bed 6 Private MD: ED Physician bIrahima Sam HPI: 11/20 12:38 This 45 yrs old Female presents to ER via Ambulatory with complaints of rn Abdominal Pain, Nausea/Vomiting/Diarrhea. 12:38 The patient presents to the emergency department with nausea, vomiting, diarrhea, rn abdominal pain. 12:39 Onset: The symptoms/episode began/occurred 2 day(s) ago. Possible causes: unknown. The rn symptoms are aggravated by nothing. The symptoms are alleviated by nothing. Associated signs and symptoms: Pertinent positives: abdominal pain, diarrhea, nausea, vomiting, Pertinent negatives: fever, GI bleeding. Severity of symptoms: At their worst the symptoms were moderate in the emergency department the symptoms are unchanged. The patient has not experienced similar symptoms in the past. The patient has not recently seen a physician. Patient reports 2 days of abdominal pain on the lower abdomen/vomiting/diarrhea. Denies any GI bleeding. Denies fever.. Historical: - Allergies: 10:31 Morphine; sv - PMHx: 10:31 Bipolar disorder; blood clot in Axilla; Endometrosis; gastritis; GERD; Hypertension; sv Pancreatitis; - PSHx: 10:49 Cholecystectomy; Hysterectomy; sv - Immunization history:: Adult Immunizations up to date. - Social history:: Smoking status: Patient denies any tobacco usage or history of. - Family history:: not pertinent. - Hospitalizations: : No recent hospitalization is reported. ROS: 12:39 Constitutional: Negative for fever, chills, and weight loss, Eyes: Negative for injury, rn pain, redness, and discharge, Neck: Negative for injury, pain, and swelling, Cardiovascular: Negative for chest pain, palpitations, and edema, Respiratory: Negative for shortness of breath, cough, wheezing, and pleuritic chest pain, Abdomen/GI: Positive for abdominal pain/nausea/vomiting/diarrhea Back: Negative for injury and pain, : Negative for injury, bleeding, discharge, and swelling, MS/Extremity: Negative for injury and deformity, Skin: Negative for injury, rash, and discoloration, Neuro: Negative for headache, weakness, numbness, tingling, and seizure. Exam: 12:39 Constitutional: This is a well developed, well nourished patient who is awake, alert, rn and in no acute distress. Head/Face: Normocephalic, atraumatic. ENT: Dry mucous membranes Cardiovascular: Regular rate and rhythm. No pulse deficits. Respiratory: No increased work of breathing, no retractions or nasal flaring. Abdomen/GI: Soft, mild tenderness right lower quadrant/suprapubic/left lower quadrant, no masses/peritoneal signs Skin: Warm, dry MS/ Extremity: Pulses equal, no cyanosis. Neurovascular intact. Full, normal range of motion. Equal circumference. Neuro: Awake and alert, GCS 15 Vital Signs: 10:32 BP 115 / 82; Pulse 70; Resp 20; Temp 97; Pulse Ox 100% ; Weight 83.91 kg; Height 5 ft. sv 5 in. (165.10 cm); Pain 9/10; 12:15 BP 123 / 78; Pulse 78; Resp 18; Pulse Ox 99% ; Pain 10/10; ch5 10:32 Body Mass Index 30.78 (83.91 kg, 165.10 cm) sv MDM: 10:50 Patient medically screened. rn 13:46 Differential diagnosis: Nonspecific abd pain, gastritis, appendicitis, diverticulitis, rn viral gastroenteritis, gastroenteritis. Data reviewed: vital signs, nurses notes, lab test result(s), radiologic studies, CT scan, and as a result, I will discharge patient. Data interpreted: shelter monitor: rate is 78 beats/min, rhythm is normal sinus rhythm, regular, with no ectopy, Interpretation: normal rate, normal rhythm. Counseling: I had a detailed discussion with the patient and/or guardian regarding: the historical points, exam findings, and any diagnostic results supporting the discharge/admit diagnosis, lab results, radiology results, the need for outpatient follow up, to return to the emergency department if symptoms worsen or persist or if there are any questions or concerns that arise at home. Response to treatment: the patient's symptoms have markedly improved after treatment, and as a result, I will discharge patient. Special discussion: Based on the patient's Hx, exam, and Dx evaluation, there is no indication for emergent surgery or inpatient Tx. It is understood by the patient/guardian that if the Sx's persist or worsen they need to return immediately for re-evaluation. I discussed with the patient/guardian in detail that at this point there is no indication for admission to the hospital. It is understood, however, that if the symptoms persist or worsen the patient needs to return immediately for re-evaluation. ED course: CT abdomen no acute findings. Most likely viral illness. No signs of colitis or enteritis. Will DC home with as needed nausea medication and diarrhea medication.. 11/20 10:54 Order name: Urine Dipstick-Ancillary; Complete Time: 11:55 EDMS 11/20 10:54 Order name: Basic Metabolic Panel; Complete Time: 11:55 rn 11/20 10:54 Order name: CBC with Diff; Complete Time: 11:55 rn 11/20 10:54 Order name: Hepatic Function; Complete Time: 11:55 rn 11/20 10:54 Order name: Lipase; Complete Time: 11:55 rn 11/20 10:54 Order name: CT Abd/Pelvis - IV Contrast Only; Complete Time: 11:55 rn 11/20 10:54 Order name: IV Saline Lock; Complete Time: 14:18 rn 11/20 10:54 Order name: Labs collected and sent; Complete Time: 14:18 rn Administered Medications: 11:09 Drug: Zofran (Ondansetron) 4 mg Route: IVP; Site: right antecubital; ch5 13:26 Follow up: Response: No adverse reaction hb 11:09 Drug: NS 0.9% 1000 ml Route: IV; Rate: 1000 ml; Site: right antecubital; ch5 11:09 Drug: Demerol (meperidine) 50 mg Route: IVP; Site: right antecubital; ch5 12:00 Follow up: Response: No adverse reaction hb 12:23 Drug: Demerol (meperidine) 50 mg Route: IVP; Site: right antecubital; ch5 13:26 Follow up: Response: No adverse reaction hb 12:23 Drug: Phenergan (promethazine) 12.5 mg Route: IVP; Site: right antecubital; ch5 13:26 Follow up: Response: No adverse reaction hb 14:18 Drug: LoMOTIL (diphenoxylate-atropine) 2 tabs Route: PO; hb 14:18 Follow up: Response: Medication administered at discharge. 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
[2020-11-20 14:26] VITALS: TEMP 97
[2020-11-20 14:28] VITALS: BP 123/78; O2SAT 99
[2020-11-20] MEDS ORDERED: DIPHENOX/ATROP SULF 1 TAB PO ONE (14:40)
== END 2020-11-20 14:22 | disposition home or self-care (01) ==
LOC: ER 10:27
DX: R19.7 Diarrhea, unspecified (principal); R11.2 Nausea with vomiting, unspecified; Z88.5 Allergy status to narcotic agent
CPT/HCPCS: 85025; 80048; 36415; 80076; 81003; 83690; 74177; 96375; 96374; 99284; Q9967; J2550; J2175 ×2; J7030; J2405

== ENCOUNTER 2020-12-26 19:37 | Emergency (ER) | payer BC ==
[2020-12-26 20:27] LABS: Urine Blood Trace-intact (Negative); Urine Glucose Negative (Negative); Urine Protein Negative (Negative)
[2020-12-26] MEDS ORDERED: NA CHLORIDE 0.9% 1,000 ML ONE (20:49)
[2020-12-26 21:24] LABS: Urine Bacteria <20 /HPF (<20); Urine RBC NONE SEEN /HPF (NONE SEEN)
[2020-12-26 21:25] LABS: Urine Yeast FEW (NONE SEEN)
[2020-12-26 21:26] LABS: Absolute Lymphocytes (CBC) 3.7 K/uL (0.7-4.9); Basophils % 0.6 % (0-1.3); Hematocrit 35.2 % (36.0-45.0); Lymphocytes % 31.3 % (15.3-44.8); MPV 9.5 fL (7.6-11.3); RBC Red Blood Cell Count 3.88 M/uL (3.86-4.86)
[2020-12-26 21:33] LABS: Albumin 3.3 g/dL (3.4-5.0); Bilirubin Direct 0.1 mg/dL (0-0.2); Bilirubin Total 0.3 mg/dL (0.2-1.0); Potassium 3.4 mmol/L (3.5-5.1)
--- NOTE | 2020-12-26 21:42 | ER ---
Nurse's Notes [facility] Name: Misa Tony Age: 45 yrs Sex: Female : 1975 Arrival Date: 12/26/2020 Time: 19:41 Bed 4 Private MD: Diagnosis: Chronic pain syndrome;Abdominal pain, unspecified Presentation: 12/26 20:02 Chief complaint: Patient states: pain to LUQ of abdomen x4 days not going away; jh5 describes sharp/stabbing. Coronavirus screen: Vaccine status: Patient reports receiving the 2nd dose of the covid vaccine. Date June 2020 Client denies travel out of the [place] in the last 14 days. Ebola Screen: Patient negative for fever greater than or equal to 101.5 degrees Fahrenheit, and additional compatible Ebola Virus Disease symptoms Patient denies exposure to infectious person. Patient denies travel to an Ebola-affected area in the 21 days before illness onset. Initial Sepsis Screen: Does the patient meet any 2 criteria? No. Patient's initial sepsis screen is negative. Does the patient have a suspected source of infection? No. Patient's initial sepsis screen is negative. Risk Assessment: Do you want to hurt yourself or someone else? Patient reports no desire to harm self or others. Onset of symptoms was December 22, 2020. 20:02 Method [facility] Ar[facility]: [facility] 20:02 Acuity: ELADIO 3 jh5 Triage Assessment: 20:06 General: Appears distressed, uncomfortable, Behavior is calm, cooperative, appropriate community hospital for age, anxious. Pain: Complains of pain in abdomen Pain currently is 10 out of 10 on a pain scale. Quality of pain is described as sharp, stabbing. GI: Abdomen is round. 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 - Social history:: Smoking status: Patient denies any tobacco usage or history of. Screenin:30 Abuse screen: Denies threats or abuse. Denies injuries from another. Nutritional dc2 screening: No deficits noted. Tuberculosis screening: No symptoms or risk factors identified. Never had TB. The patient has not been NPO before screening. Fall Risk None identified. No fall in past 12 months (0 pts). No secondary diagnosis (0 pts). No IV (0 pts). Ambulatory Aid- None/Bed Rest/Nurse Assist (0 pts). Gait- Normal/Bed Rest/Wheelchair (0 pts) Mental Status- Oriented to own ability (0 pts). Total Salvador Fall Scale indicates No Risk (0-24 pts). Assessment: 20:30 General: Appears in no apparent distress. uncomfortable, obese, well groomed, Behavior dc2 is calm, cooperative. Pain: Complains of pain in Left upper abdomen. 20:30 Neuro: No deficits noted. Level of Consciousness is awake, alert, obeys commands, dc2 Oriented to person, place, time, situation. Neuro: Cardiovascular: Denies chest pain, diaphoresis, shortness of breath, Heart tones present. Respiratory: Breath sounds are clear bilaterally. GI: Bowel sounds present X 4 quads. Abd is soft and non tender X 4 quads. Reports upper abdominal pain, Patient currently denies nausea, vomiting. : No signs and/or symptoms were reported regarding the genitourinary system. Derm: Skin is intact, slight abrasion to top of head with no open laceration noted. Musculoskeletal: No deficits noted. No signs and/or symptoms reported regarding the musculoskeletal system. 21:50 Reassessment: Dr. crawford to bedside to discuss lab results with patient and POC re dc2 discharge to home and follow up with GI. Pt verbalizes understanding. Vital Signs: 20:02 BP 123 / 79; Pulse 84; Resp 18; Temp 97.2; Pulse Ox 96% ; jh5 21:50 BP 112 / 53; Pulse 79; Resp 20; Pulse Ox 100% ; Pain 6/10; dc2 ED Course: 19:41 Patient arrived in ED. cf2 20:05 Triage completed. 5 20:18 Jose Crawford MD is Attending Physician. sp3 20:30 Arm band placed on left wrist. dc2 20:30 Patient has correct armband on for positive identification. Placed in gown. Bed in low dc2 position. Call light in reach. Side rails up X 1. telemetry monitor on. Pulse ox on. NIBP on. Door closed. Lights dimmed. 20:37 Shelley Pal, RN is Primary Nurse. dc2 20:38 Inserted saline lock: 20 gauge in right hand, using aseptic technique. Blood collected. dc2 20:47 Basic Metabolic Panel Sent. df1 20:47 CBC with Diff Sent. df1 20:47 Hepatic Function Sent. df1 20:47 Lipase Sent. df1 20:48 UA MICROSCOPIC Sent. df1 20:49 Urine --Ancillary (enter results) Sent. df1 21:20 No provider procedures requiring assistance completed. dc2 21:50 IV discontinued, intact, bleeding controlled, No redness/swelling at site. Pressure dc2 dressing applied. Administered Medications: 21:51 Discontinued: NS 0.9% 1000 ml IV at 1 bolus Per protocol; 1000 mL bolus dc2 20:57 Drug: NS 0.9% 1000 ml Route: IV; Rate: 1 bolus; Infused Over: 1 hrs; Site: right hand; dc2 Delivery: Primary tubing; Outcome: 21:42 Discharge ordered by . [email or web address] 21:52 Discharged to home ambulatory. dc2 21:52 Condition: stable 21:52 Discharge instructions given to patient, Instructed on discharge instructions, follow up and referral plans. Pt refused to sign paperwork unless work note for tomorrow was given ED provider aware, and no work note is to be given to patient. Pt is very angry and rude to staff. 21:55 Patient left the ED. dc2 Signatures: Lenard Phillips cf2 Jose Crawford MD MD sp3 Yue Moreno df1 Shelley Pal, RN RN dc2 Irma Jackson, RN RN jh5
--- NOTE | 2020-12-26 21:42 | EDPHYS ---
Physician Documentation [facility] Name: Misa Tony Age: 45 yrs Sex: Female : 1975 Arrival Date: 12/26/2020 Time: 19:41 Bed 4 Private MD: ED Physician Jose Dhaliwal HPI: 12/26 20:42 This 45 yrs old Female presents to ER via Ambulatory with complaints of sp3 Abdominal Pain. 20:42 45-year-old female with multiple medical problems including bipolar disease, gastritis, sp3 prior pancreatitis, prior kidney stones, chronic abdominal pain presents again for abdominal pain and cramping on the left upper quadrant. Patient states it "feels like my prior pancreatitis". Patient is ambulatory and her vital signs are normal. She is not actively having emesis. She denies headache, fever, chest pain, back pain, shortness of breath, lower abdominal pain, vomiting, diarrhea, syncope, near syncope, focal neuro deficit, rash, known COVID-19 contacts, travel history, any other ROS at this time.. 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 - Social history:: Smoking status: Patient denies any tobacco usage or history of. ROS: 20:43 Constitutional: Negative for fever, chills, and weight loss, Eyes: Negative for injury, sp3 pain, redness, and discharge, Neck: Negative for injury, pain, and swelling, Cardiovascular: Negative for chest pain, palpitations, and edema, Respiratory: Negative for shortness of breath, cough, wheezing, and pleuritic chest pain, Back: Negative for injury and pain, MS/Extremity: Negative for injury and deformity, Skin: Negative for injury, rash, and discoloration, Neuro: Negative for headache, weakness, numbness, tingling, and seizure, Allergy/Immunology: Negative for hives, rash, and allergies, Endocrine: Negative for neck swelling, polydipsia, polyuria, polyphagia, and marked weight changes. 20:43 All other systems are negative. Exam: 20:44 Constitutional: This is a well developed, well nourished patient who is awake, alert, sp3 and in no acute distress. Head/Face: Normocephalic, atraumatic. Eyes: Pupils equal round and reactive to light, extra-ocular motions intact. Lids and lashes normal. Conjunctiva and sclera are non-icteric and not injected. Cornea within normal limits. Periorbital areas with no swelling, redness, or edema. Neck: Trachea midline, no thyromegaly or masses palpated, and no cervical lymphadenopathy. Supple, full range of motion without nuchal rigidity, or vertebral point tenderness. No Meningismus. Chest/axilla: Normal chest wall appearance and motion. Nontender with no deformity. No lesions are appreciated. Cardiovascular: Regular rate and rhythm with a normal S1 and S2. No gallops, murmurs, or rubs. Normal PMI, no JVD. No pulse deficits. Respiratory: Lungs have equal breath sounds bilaterally, clear to auscultation and percussion. No rales, rhonchi or wheezes noted. No increased work of breathing, no retractions or nasal flaring. Back: No spinal tenderness. No costovertebral tenderness. Full range of motion. Skin: Warm, dry with normal turgor. Normal color with no rashes, no lesions, and no evidence of cellulitis. MS/ Extremity: Pulses equal, no cyanosis. Neurovascular intact. Full, normal range of motion. Neuro: Awake and alert, GCS 15, oriented to person, place, time, and situation. Cranial nerves II-XII grossly intact. Motor strength 5/5 in all extremities. Sensory grossly intact. Cerebellar exam normal. Normal gait. 20:44 Abdomen/GI: Abdomen is tender in the left upper quadrant without peritoneal signs, rebound, guarding. Bowel sounds are normal. Negative CVA tenderness. Patient's pain level is out of proportion with exam.. Vital Signs: 20:02 BP 123 / 79; Pulse 84; Resp 18; Temp 97.2; Pulse Ox 96% ; jh5 21:50 BP 112 / 53; Pulse 79; Resp 20; Pulse Ox 100% ; Pain 6/10; dc2 MDM: 20:21 Patient medically screened. sp3 20:46 Data reviewed: vital signs, nurses notes. ED course: 45-year-old female with chronic sp3 abdominal pain and multiple other medical problems. Patient has had multiple ED visits for this and I am concerned for drug-seeking behavior and a secondary gain. We will obtain laboratory values to assess for pancreatitis as well as other routine lab levels and a UA. I am not highly suspicious for any intra-abdominal process including pancreatitis, kidney stone, gastritis, colitis, bowel obstruction, ileus, ACS, AAA, vascular compromise, mesenteric ischemia, any other critical findings at this time. Laboratory values are negative, will discharge patient home. When nobody is in the room, patient is resting comfortably in no acute distress and her vital signs remain normal. Upon healthcare provider entry into the room, her demeanor changes and pain becomes more evident.. 21:40 ED course: Patient laboratory values reviewed. Her liver enzymes of chronically been sp3 elevated. Lipase is normal. CBC unremarkable. At this point we will discharge patient home as she has no acute abnormality I believe her pain is chronic in nature. No IV narcotics will be given in the ED.. 12/26 20:26 Order name: Basic Metabolic Panel; Complete Time: 21:40 sp3 12/26 20:26 Order name: CBC with Diff; Complete Time: 21:40 sp3 12/26 20:26 Order name: Hepatic Function; Complete Time: 21:40 sp3 12/26 20:26 Order name: Lipase; Complete Time: 21:40 sp3 12/26 20:26 Order name: UA MICROSCOPIC; Complete Time: 21:40 sp3 12/26 20:26 Order name: IV Saline Lock; Complete Time: 20:47 sp3 12/26 20:26 Order name: Labs collected and sent; Complete Time: 20:47 sp3 12/26 20:26 Order name: Urine Test (obtain specimen); Complete Time: 20:48 sp3 12/26 20:28 Order name: Urine Dipstick-Ancillary; Complete Time: 21:11 EDMS 12/26 20:32 Order name: Urine --Ancillary (enter results); Complete Time: 21:40 tt3 12/26 21:26 Order name: Urine Culture EDMS Administered Medications: 21:51 Discontinued: NS 0.9% 1000 ml IV at 1 bolus Per protocol; 1000 mL bolus dc2 20:57 Drug: NS 0.9% 1000 ml Route: IV; Rate: 1 bolus; Infused Over: 1 hrs; Site: right hand; dc2 Delivery: Primary tubing; Disposition Summary: 12/26/20 21:42 Discharge Ordered Location: Home sp3 Condition: Stable sp3 Diagnosis - Chronic pain syndrome sp3 - Abdominal pain, unspecified sp3 Followup: sp3 - With: Private Physician - When: As needed - Reason: Re-evaluation by your physician Discharge Instructions: - Discharge Summary Sheet sp3 - Chronic Pain, Adult sp3 Forms: - Medication Reconciliation Form sp3 - Thank You Letter sp3 - Antibiotic Education sp3 - Prescription Opioid Use sp3 - Work release form cs9 Signatures: Dispatcher [employer] EDMS Jose Dhaliwal MD MD sp3 DemarcoShelley RN RN dc2 Irma Jackson RN RN jh5 Corrections: (The following items were deleted from the chart) 20:40 20:26 Abdomen Pelvis W Con+CT.RAD.BRZ ordered. EDMS EDMS 20:45 20:26 URINALYSIS+U.LAB.BRZ ordered. EDMS EDMS
[2020-12-26 22:07] VITALS: BP 123/79; TEMP 97.2; O2SAT 96
== END 2020-12-26 21:55 | disposition home or self-care (01) ==
LOC: ER 19:37
DX: R10.9 Unspecified abdominal pain (principal); G89.4 Chronic pain syndrome; K21.9 Gastro-esophageal reflux disease without esophagitis; I10 Essential (primary) hypertension; Z88.6 Allergy status to analgesic agent; Z90.49 Acquired absence of other specified parts of digestive tract
CPT/HCPCS: 87088; 85025; 87086; 80048; 36415; 81025; 80076; 83690; 99284; J7030; 81003; 81015

== ENCOUNTER 2021-06-08 11:46 | Emergency (ER) | payer BC, SELFPAY ==
[2021-06-08] MEDS ORDERED: NA CHLORIDE 0.9% 1,000 ML ONE (13:08)
[2021-06-08] MEDS ORDERED: ONDANSETRON 4 MG/2 ML VIAL ONE (13:08)
[2021-06-08] MEDS ORDERED: FAMOTIDINE 20 MG/2 ML VIAL IV ONE (13:08)
[2021-06-08] MEDS ORDERED: FENTANYL CITR 100 MCG/2 ML ONE (13:33)
[2021-06-08 13:55] LABS: Urine Blood 1+ (Negative); Urine Glucose Negative (Negative); Urine Protein Trace (Negative); Urine Specific Gravity 1.015 (1.005-1.030)
[2021-06-08 14:03] LABS: Hematocrit 39.7 % (36.0-45.0); Lymphocytes % 24.3 % (15.3-44.8); MPV 9.3 fL (7.6-11.3); RBC Red Blood Cell Count 4.45 M/uL (3.86-4.86)
[2021-06-08 14:22] LABS: Potassium 3.3 mmol/L (3.5-5.1)
[2021-06-08 14:23] LABS: Albumin 3.9 g/dL (3.4-5.0); Bilirubin Total 0.7 mg/dL (0.2-1.0); Protein, Total 8.7 g/dL (6.4-8.2)
--- NOTE | 2021-06-08 14:26 | RAD REPORT ---
EXAM DESCRIPTION: CTAbdomen Pelvis W Contrast - 06/08/2021 1:58 pm CLINICAL HISTORY: Abdominal pain. LUQ abdominal pain COMPARISON: Abdomen Pelvis W Contrast dated 11/20/2020; Abdomen Pelvis W Contrast dated 08/16/2020; Abdomen Pelvis W Contrast dated 08/13/2020; Abdomen Pelvis W Contrast dated 08/08/2020 TECHNIQUE: Biphasic CT imaging of the abdomen and pelvis was performed with 100 ml non-ionic IV cont rast. All CT scans are performed using dose optimization technique as appropriate and may include automated exposure control or mA/KV adjustment according to patient size. FINDINGS: The lung bases are clear. Prominent fatty liver. Cholecystectomy clips. Fatty infiltration of the pancreas also seen. The splee n, adrenal glands and kidneys are within normal limits. No bowel obstruction, free air, free fluid or abscess. The appendix is normal. No evidence of signi ficant lymphadenopathy. No suspicious bony findings. Old posterior left inferior rib fracture. IMPRESSION: No acute intra-abdominal or pelvic finding. Prominent fatty infiltration of the pancreas and liver.
[2021-06-08] MEDS ORDERED: METOCLOPRAMIDE 10 MG/2mL INJ ONE (15:04)
[2021-06-08] MEDS ORDERED: LORazepam 2 MG/ML VIAL ONE (15:04)
[2021-06-08] MEDS ORDERED: DIPHENHYDRAMINE 50 MG/ML VIAL ONE (15:05)
[2021-06-08] MEDS ORDERED: NA CHLORIDE 0.9% 250 ML ONE (15:05)
--- NOTE | 2021-06-08 16:42 | ER ---
Nurse's Notes [facility] Name: Misa Tony Age: 45 yrs Sex: Female : 1975 Arrival Date: 06/08/2021 Time: 11:55 Bed 16 Private MD: Diagnosis: Vomiting Presentation: 06/08 12:15 Chief complaint: Patient states: N/V x 3 days, states intolerance to foods/fluids, also vg1 states became dizzy last night while taking a hot shower and fell onto tub. Denies hitting head/LOC. Coronavirus screen: Vaccine status: Patient reports receiving the 2nd dose of the covid vaccine. Client denies travel out of the [place] in the last 14 days. Ebola Screen: Patient denies exposure to infectious person. Patient denies travel to an Ebola-affected area in the 21 days before illness onset. Initial Sepsis Screen: Does the patient meet any 2 criteria? No. Patient's initial sepsis screen is negative. Does the patient have a suspected source of infection? No. Patient's initial sepsis screen is negative. Risk Assessment: Do you want to hurt yourself or someone else? Patient reports no desire to harm self or others. Onset of symptoms was June 05, 2021. 12:15 Method Of Arrival: Ambulatory vg1 12:15 Acuity: ELADIO 3 vg1 Triage Assessment: 12:17 General: Appears uncomfortable, Behavior is cooperative. Pain: Complains of pain in vg1 epigastric area, right upper quadrant and left upper quadrant Pain currently is 10 out of 10 on a pain scale. GI: Reports nausea, vomiting. 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 - Social history:: Smoking status: Patient denies any tobacco usage or history of. Screenin:56 Abuse screen: Denies threats or abuse. Denies injuries from another. Nutritional ph screening: No deficits noted. Tuberculosis screening: No symptoms or risk factors identified. Fall Risk None identified. Assessment: 13:57 General: Appears in no apparent distress. uncomfortable, Behavior is calm, cooperative, ph appropriate for age, Denies fever, chills. Pain: Complains of pain in right upper quadrant and left upper quadrant. Neuro: Level of Consciousness is awake, alert, obeys commands, Oriented to person, place, time, situation. Cardiovascular: Capillary refill < 3 seconds in bilateral fingers Patient's skin is warm and dry. Respiratory: Airway is patent Respiratory effort is even, unlabored. GI: Abdomen is non-distended, Reports upper abdominal pain, nausea, vomiting. Derm: Skin is intact, Skin is pink, warm \T\ dry. Musculoskeletal: Circulation, motion, and sensation intact. Range of motion: intact in all extremities. 15:00 Reassessment: Patient appears in no apparent distress at this time. Patient and/or ph family updated on plan of care and expected duration. Pain level reassessed. Patient is alert, oriented x 3, equal unlabored respirations, skin warm/dry/pink. PT continues to c/o N/V and upper abdominal pain, ERP notified see APR. 16:09 Reassessment: Patient appears in no apparent distress at this time. Patient and/or ph family updated on plan of care and expected duration. Pain level reassessed. Patient is alert, oriented x 3, equal unlabored respirations, skin warm/dry/pink. Vital Signs: 12:15 BP 138 / 83; Pulse 90; Resp 18; Temp 98.1; Pulse Ox 98% on R/A; Weight 97.52 kg; Height vg1 5 ft. 5 in. (165.10 cm); Pain 10/10; 16:10 BP 129 / 78; Pulse 84; Resp 18; Pulse Ox 98% on R/A; ph 17:00 BP 131 / 76; Pulse 79; Resp 16; Temp 97.9; Pulse Ox 98% on R/A; ph 12:15 Body Mass Index 35.78 (97.52 kg, 165.10 cm) vg1 ED Course: 11:55 Patient arrived in ED. rg4 12:12 Fahad Dennis PA is PHCP. jmm 12:12 Tiara Espinoza MD is Attending Physician. m 12:15 Arm band placed on. vg1 12:17 Triage completed. vg1 13:00 Kimberli Cooley RN is Primary Nurse. ph 13:45 Initial lab(s) drawn, by me, sent to lab. Urine collected: clean catch specimen, silvino ph colored. Inserted saline lock: 22 gauge in left antecubital area, using aseptic technique. Blood collected. 13:56 Patient has correct armband on for positive identification. Placed in gown. Bed in low ph position. Call light in reach. Side rails up X 1. Pulse ox on. NIBP on. Door closed. Noise minimized. Warm blanket given. 14:00 CT Abd/Pelvis - IV Contrast Only In Process Unspecified. EDMS 17:06 No provider procedures requiring assistance completed. IV discontinued, intact, ph bleeding controlled, No redness/swelling at site. Pressure dressing applied. Administered Medications: 13:45 Drug: NS 0.9% 1000 ml Route: IV; Rate: 1 bolus; Site: left antecubital; ph 15:15 Follow up: Response: No adverse reaction; IV Status: Completed infusion; IV Intake: ph 1000ml 13:45 Drug: Zofran (Ondansetron) 4 mg Route: IVP; Site: left antecubital; ph 14:15 Follow up: Response: No adverse reaction ph 13:47 Drug: fentaNYL (PF) 50 mcg Route: IVP; Site: left antecubital; ph 14:15 Follow up: Response: No adverse reaction; Pain is decreased ph 13:48 Drug: Pepcid (famotidine) 20 mg Route: IVP; Site: left antecubital; ph 14:15 Follow up: Response: No adverse reaction ph 15:12 Drug: diphenhydrAMINE 25 mg Route: IVP; Site: left antecubital; ph 16:00 Follow up: Response: No adverse reaction ph 15:13 Drug: Ativan (LORazepam) 1 mg Route: IVP; Site: left antecubital; ph 16:00 Follow up: Response: No adverse reaction ph 15:15 Drug: Reglan (metoCLOPramide) 20 mg {Note: mixed in 250 mL NS.} Route: IVP; Site: left ph antecubital; 16:00 Follow up: Response: No adverse reaction; Vomiting decreased ph Intake: 15:15 IV: 1000ml; Total: 1000ml. ph Outcome: 16:42 Discharge ordered by MD. blankenship 17:06 Discharged to home ambulatory, with significant other. ph 17:06 Condition: good 17:06 Discharge instructions given to patient, significant other, Instructed on discharge instructions, follow up and referral plans. medication usage, Demonstrated understanding of instructions, follow-up care, medications, Prescriptions given X 3. 17:08 Patient left the ED. ph Signatures: Dispatcher [employer] EDMS Fahad Dennis PA PA jmm Hall, Patricia, RN RN ph Ariana Alberto4 Yamilet Alberto RN RN vg1 Corrections: (The following items were deleted from the chart) 12:18 12:15 Pulse 90bpm; Resp 18bpm; Pulse Ox 98% RA; Temp 98.1F; 97.52 kg; Height 5 ft. 5 vg1 in.; BMI: 35.7; Pain 10/10; vg1
--- NOTE | 2021-06-08 16:42 | EDPHYS ---
Physician Documentation [facility] Name: Misa Tony Age: 45 yrs Sex: Female : 1975 Arrival Date: 06/08/2021 Time: 11:55 Bed 16 Private MD: ED Physician Tiara Espinoza HPI: 06/08 12:35 This 45 yrs old Female presents to ER via Ambulatory with complaints of Vomiting, jmm Abdominal Pain. 12:35 The patient presents to the emergency department with nausea, vomiting, diarrhea, jmm abdominal pain. Onset: The symptoms/episode began/occurred gradually, 2 day(s) ago. Possible causes: unknown. The symptoms are aggravated by nothing. The symptoms are alleviated by nothing. Associated signs and symptoms: Pertinent positives: abdominal pain, constipation, Pertinent negatives: fever. This is a 45 year old female with a history of bipolar, gastritis, gerd, that presents to the ED with complaints of epigastric pain, abdominal pain, vomiting, diarrhea beginning approx 2 days ago. Denies recent abx, recent travel, infectious exposure, . 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 - Social history:: Smoking status: Patient denies any tobacco usage or history of. ROS: 12:35 Constitutional: Negative for fever, chills, and weight loss, Cardiovascular: Negative jmm for chest pain, palpitations, and edema, Respiratory: Negative for shortness of breath, cough, wheezing, and pleuritic chest pain. 12:35 Abdomen/GI: Positive for abdominal pain, nausea, vomiting, and diarrhea, diarrhea. 12:35 All other systems are negative. Exam: 12:35 Constitutional: This is a well developed, well nourished patient who is awake, alert, jmm and in no acute distress. Head/Face: atraumatic. Eyes: EOMI, no conjunctival erythema appreciated ENT: Moist Mucus Membranes Neck: Trachea midline, Supple Chest/axilla: Normal chest wall appearance and motion. Cardiovascular: Regular rate and rhythm. No edema appreciated Respiratory: Normal respirations, no respiratory distress appreciated 12:35 Back: Normal ROM Skin: General appearance color normal MS/ Extremity: Moves all extremities, no obvious deformities appreciated, no edema noted to the lower extremities Neuro: Awake and alert Psych: Behavior is normal, Mood is normal, Patient is cooperative and pleasant 12:35 Abdomen/GI: Inspection: abdomen appears normal, Bowel sounds: normal, Palpation: soft, mild abdominal tenderness, in the epigastric area and left upper quadrant. Vital Signs: 12:15 BP 138 / 83; Pulse 90; Resp 18; Temp 98.1; Pulse Ox 98% on R/A; Weight 97.52 kg; Height vg1 5 ft. 5 in. (165.10 cm); Pain 10/10; 16:10 BP 129 / 78; Pulse 84; Resp 18; Pulse Ox 98% on R/A; ph 17:00 BP 131 / 76; Pulse 79; Resp 16; Temp 97.9; Pulse Ox 98% on R/A; ph 12:15 Body Mass Index 35.78 (97.52 kg, 165.10 cm) vg1 MDM: 12:51 Patient medically screened. abbey 16:41 Data reviewed: vital signs, nurses notes. Counseling: I had a detailed discussion with krzysztof the patient and/or guardian regarding: the historical points, exam findings, and any diagnostic results supporting the discharge/admit diagnosis, lab results, radiology results, the need for outpatient follow up, to return to the emergency department if symptoms worsen or persist or if there are any questions or concerns that arise at home. 06/08 12:35 Order name: CBC with Diff; Complete Time: 14:28 [facility] 06/08 12:35 Order name: CMP; Complete Time: 14:28 [facility] 06/08 12:35 Order name: Lipase; Complete Time: 14:28 [facility] 06/08 13:14 Order name: CT Abd/Pelvis - IV Contrast Only; Complete Time: 14:28 [facility] 06/08 13:55 Order name: Urine Dipstick-Ancillary; Complete Time: 14:28 [facility] 06/08 12:35 Order name: IV Saline Lock; Complete Time: 13:58 [facility] 06/08 12:35 Order name: Labs collected and sent; Complete Time: :58 [facility] 06/08 12:35 Order name: Urine Dipstick-Ancillary (obtain specimen); Complete Time: 58 [facility] 06/08 12:35 Order name: Urine Test (obtain specimen); Complete Time: 13:58 [facility] Administered Medications: 13:45 Drug: NS 0.9% 1000 ml Route: IV; Rate: 1 bolus; Site: left antecubital; ph 15:15 Follow up: Response: No adverse reaction; IV Status: Completed infusion; IV Intake: ph 1000ml 13:45 Drug: Zofran (Ondansetron) 4 mg Route: IVP; Site: left antecubital; ph 14:15 Follow up: Response: No adverse reaction ph 13:47 Drug: fentaNYL (PF) 50 mcg Route: IVP; Site: left antecubital; ph 14:15 Follow up: Response: No adverse reaction; Pain is decreased ph 13:48 Drug: Pepcid (famotidine) 20 mg Route: IVP; Site: left antecubital; ph 14:15 Follow up: Response: No adverse reaction ph 15:12 Drug: diphenhydrAMINE 25 mg Route: IVP; Site: left antecubital; ph 16:00 Follow up: Response: No adverse reaction ph 15:13 Drug: Ativan (LORazepam) 1 mg Route: IVP; Site: left antecubital; ph 16:00 Follow up: Response: No adverse reaction ph 15:15 Drug: Reglan (metoCLOPramide) 20 mg {Note: mixed in 250 mL NS.} Route: IVP; Site: left ph antecubital; 16:00 Follow up: Response: No adverse reaction; Vomiting decreased ph Disposition Summary: 06/08/21 16:42 Discharge Ordered Location: Home [facility] Condition: Stable [facility] Diagnosis - Vomiting [facility] Followup: [facility] - With: Private Physician - When: 2 - 3 days - Reason: Recheck today's complaints, Continuance of care, Re-evaluation by your physician Discharge Instructions: - Discharge Summary Sheet [facility] - Vomiting, Adult [facility] Forms: - Medication Reconciliation Form [facility] - Thank You Letter [facility] - Antibiotic Education [facility] - Prescription Opioid Use [facility] Prescriptions: - ondansetron 4 mg Oral tablet,disintegrating - take 1 tablet by ORAL route every 4-6 hours; 20 tablet; Refills: 0, Product [facility] Selection Permitted - Pepcid 20 mg Oral Tablet - take 1 tablet by ORAL route every 12 hours for 10 days; 20 tablet; Refills: 0, [facility] Product Selection Permitted - dicyclomine 20 mg Oral Tablet - take 1 tablet by ORAL route 4 times per day; 30 tablet; Refills: 0, Product [facility] Selection Permitted Signatures: Dispatcher [employer] Fahad Morales PA PA jmm Hall, Patricia, RN RN Yamilet Alberto RN RN vg1
[2021-06-08 17:24] VITALS: TEMP 98.1; O2SAT 98
[2021-06-08 17:28] VITALS: BP 129/78
== END 2021-06-08 17:08 | disposition home or self-care (01) ==
LOC: ER 11:46
DX: R11.10 Vomiting, unspecified (principal); R10.9 Unspecified abdominal pain; I10 Essential (primary) hypertension; F31.9 Bipolar disorder, unspecified; K21.9 Gastro-esophageal reflux disease without esophagitis; Z88.5 Allergy status to narcotic agent
CPT/HCPCS: 36415; 74177; 80053; 81003; 82565; 83690; 85025; 96361; 96374; 96375; 99284; J1200; J2405; J2765; J3010; J3490; J7030; J7050

== ENCOUNTER 2021-07-03 11:07 | Emergency (ER) | payer SELFPAY ==
--- OUTSIDE RECORDS SUMMARY | 2021-07-03 11:13 | XMS REPORT | Continuity of Care Document ---
:1975 Author Organization [facility] t Address [address] [place] [address] Care Team Providers Name Role Phone MS RAINER Primary Care Physician Unavailable Rainer Attending Clinician Unavailable Mahnaz Attending Clinician Unavailable Tamiko ALVAREZ Attending Clinician Unavailable DR BILL Attending Clinician Unavailable Santa ALFONSO Attending Clinician Unavailable DR Marycarmen VINES Attending Clinician Unavailable DR KING Attending Clinician Unavailable DR Alvina ISLAS Attending Clinician Unavailable DR KADEN Attending Clinician Unavailable Tamiko Alvarez MD Attending Clinician Only, Test Attending Clinician Unavailable Doctor Unassigned, Name Attending Clinician Unavailable CINDY Attending Clinician Unavailable SWATI Attending Clinician Unavailable GAVIOTA POLLARD Attending Clinician Unavailable RADIOLOGY Attending Clinician Unavailable Tamiko ALVAREZ Admitting Clinician Unavailable DR BILL Admitting Clinician Unavailable Santa ALFONSO Admitting Clinician Unavailable DR Marycarmen VINES Admitting Clinician Unavailable DR KING Admitting Clinician Unavailable DR Alvina ISLAS Admitting Clinician Unavailable DR KADEN Admitting Clinician Unavailable Kim MARK, C Admitting Clinician CINDY Admitting Clinician Unavailable GAVIOTA POLLARD Admitting Clinician Unavailable Payers Payer Name Policy Type Policy Number Effective Date Expiration Date Dagoberto espinoza [facility] [id number] 2017 00:00:00 SELECT 1000 [id number] 2021 00:00:00 Problems Condition Condition Condition Status Onset Resolution Last Treating Co mments Source Name Details Category Date Date Treatment Clinician Date Abdominal Abdominal Disease Active 2016-02 Overview: Univers pain, pain, 1-15 Formattin ity of epigastric epigastric 00:00: g of this [place] note Medical might be Branch different from the original. Added automatic ally from request for surgery [id number] History of History of Disease Active 2016-02 Overview : Univers pancreatit pancreatit 1-15 Formattin ity of is is 00:00: g of this [place] note Medical might be Branch different from the original. Added automatic ally from request for surgery [id number] Elevated Elevated Disease Active 2016-02 Overview: Un dejon LFTs LFTs 1-15 Formattin ity of 00:00: g of this [place] note Medical might be Branch different from the original. Added automatic ally from request for surgery [id number] Nausea and Nausea and Disease Active 2016-02 Overview : Univers vomiting, vomiting, 1-15 Formattin i ty of intractabi intractabi 00:00: g of this [place] lity of lity of 00 note Medical vomiting vomiting might be Bran ch not not different specified, specified, from the unspecifie unspecifie original. d vomiting d vomiting Added type type automatic ally from request for surgery [id number] Encounter Encounter Disease Active Uni vers for other for other 5-16 [place] su[place] 00 Medical management management Br anch History of History of Disease Active U nivers hysterecto hysterecto -16 it y of my my 00:00: [place] [facility] Generalize Generalize Disease Active U nivers d anxiety d anxiety -16 ity of disorder disorder 00:00: [place] 00 Medical Branch Depression Depression Disease Active U nivers , , 5-16 ity of unspecifie unspecifie [place] Medical depression depression Br anch type type Obesity, Obesity, Disease Active Unive rs unspecifie unspecifie 5-16 it y of d d 00:00: [place] 00 Medical Branch Allergies, Adverse Reactions, Alerts Allergy Allergy Status Severity Reaction(s) Onset Inactive Treating Comm ents Source Name Type Date Date Clinician MORPHINE DRUG Active Rash Univers INGREDI 04-29 ity of 00:00: [place] 00 Medical Branch Morphine Propensi Active Rash Univer s ty to 04-29 ity of adverse 00:00: [place] reaction 00 Medical s Branch MORPHINE Adverse Active rash Common Reaction [facility] Morphine DA Active Unknown Hives [facility] Social History Social Habit Start Date Stop Date Quantity Comments Source Exposure to Not sure [facility] SARS-CoV-2 [facility] (event) Branch Tobacco use and 2017-01-29 2017-01-29 Never used Universit y of exposure 00:00:00 00:00:00 [facility] Alcohol intake 2017-01-29 2017-01-29 Current University of 00:00:00 00:00:00 non-drinker of [facility] alcohol Branch (finding) Sex [birth year] At [birth year] Universit y of 00:00:00 00:00:00 [facility] Smoking Status Start Date Stop Date Source Never smoker [facility] Medications Ordered Filled Start Stop Current Ordering Indication Dosage Frequency Signature Comments Components Source Medication Medication Date Date Medication? Clinician (SIG) Name Name lisinopril- Yes 1{tbl} Take 1 Un dejon hydrochloro 8-04 tablet by ity of thiazide 16:59: mouth [place] 20-12.5 mg 07 daily. Medical per tablet Branch lisinopril- Yes 1{tbl} Take 1 Un dejon hydrochloro 8-04 tablet by ity of thiazide 16:59: mouth [place] 20-12.5 mg 07 daily. Medical per tablet Branch lisinopril- Yes 1{tbl} Take 1 Un dejon hydrochloro 8-04 tablet by ity of thiazide 16:59: mouth [place] 20-12.5 mg 07 daily. Medical per tablet Branch FENTanyl PF 2020-0 Yes 25ug 25 mcg, Uni vers (SUBLIMAZE 8-04 Slow IV ity of (PF)) 16:19: Push, [place] injection 59 Q5MIN PRN, Medi sergio 25 mcg 4 doses, Branch Starting Thu09/19/20 at 1119, Until Discontinu ed, Routine, Pain (scale 4-6), PACU FENTanyl PF 2020-2020- No 25ug 25 mcg, Un dejon (SUBLIMAZE 8- 08-04 Slow IV ity o f (PF)) 16:19: 18:59 Push, [place] injection 59 :11 Q5MIN PRN, Medi sergio 25 mcg 4 doses, Branch Starting Thu09/19/20 at 1119, Until Thu09/19/20 at 1359, Routine, Pain (scale 4-6), PACU lactated Yes 1000mL at 100 Unive rs ringers IV 8-04 mL/hr, ity of infusion 16:15: 1,000 mL[place] 1[place]000 mL 00 IV Medical Infusion, Branch CONTINUOUS , Starting Thu09/19/20 at 1115, Until Discontinu ed, Routine, PACU lactated 2020-0 2020- No 1000mL at 100 Univ ers ringers IV 8-04 08-04 mL/hr, ity of infusion 16:15: 18:59 1,000 mL, Jakub as 1,000 mL 00 :11 IV Medical Infusion, Branch CONTINUOUS , Starting Thu09/19/20 at 1115, Until Thu09/19/20 at 1359, Routine, PACU ondansetron 2020-0 Yes 4mg 4 mg, Slow Univers (ZOFRAN 8-04 IV Push, ity of (PF)) 16:12: PRN, 1 [place] injection 4 07 dose, Medical mg Starting Branch Thu09/19/20 at 1112, Until Discontinu ed, Routine, Nausea and Vomiting (N/V), PACU ondansetron 2020-0 2020- No 4mg 4 mg, Slow Univers (ZOFRAN 8-04 08-04 IV Push, ity of (PF)) 16:12: 18:59 PRN, 1 [place] injection 4 07 :11 dose, Medical mg Starting Branch Thu09/19/20 at 1112, Until 09/19/20 at 1359, Routine, Nausea and Vomiting (N/V), PACU simethicone Yes PRN, Univer s (GAS RELIEF 8-04 Starting ity of (SIMETHICON 15:55: 09/19/20 [place] E)) 40 00 at 1055, Medical mg/0.6 mL Until Branch drops Discontinu ed, Routine, Intra-op simethicone 2020- No PRN, Unive rs (GAS RELIEF 8-04 08-04 Starting ity of (SIMETHICON 15:55: 18:59 09/19/20 [place] E)) 40 00 :11 at 1055, Medical mg/0.6 mL Until Wed Branc h drops 09/19/20 at 1359, Routine, Intra-op lactated 2020- No 1000mL at 20 Unive rs ringers IV 8-04 08-04 mL/hr, ity of infusion 14:30: 14:42 1,000 mL, Jakub as 1,000 mL 00 :00 IV Medical Infusion, Branch ONCE, 1 dose, 09/19/20 at 0930, Routine, Endo Pre-op lactated 2020- No [facility] 8-04 08-04 mL/hr, ity of infusion 14:30: 14:42 1,000 mL, Jakub as 1,000 mL 00 :00 IV Medical Infusion, Branch ONCE, 1 dose, 09/19/20 at 0930, Routine, Endo Pre-op VRAYLAR 3 Yes 1{capsu Take 1 Uni vers mg Cap 6-28 le} capsule by ity of 00:00: mouth [place] 00 daily. Medical Branch VRAYLAR 3 Yes 1{capsu Take 1 Uni vers mg Cap 6-28 le} capsule by ity of 00:00: mouth [place] 00 daily. Medical Branch ondansetron Yes 4mg Take 1 Univ ers 4 mg 3-14 tablet by ity of disintegrat 00:00: mouth [place] ing tablet 00 every 4 Medica l (four) Branch hours as needed for Nausea and Vomiting (N/V). Butalbital- Yes 1{capsu Take 1 U nivers Acetaminoph 3-14 le} capsule by it y of en-Caff 00:00: mouth [place] (FIORICET) 00 every 6 Medica l 50-300-40 (six) Branch mg per hours as capsule needed for Pain (scale 4-6). azithromyci 2018-0 Yes 250mg Take 1 Uni vers n 3-14 tablet by ity of (ZITHROMAX 00:00: mouth [place] Z-JUAN) 250 00 SEE-INSTRU Med ical mg tablet CTIONS. Branch Take 500 mg day 1, then 250 mg days 2 to 5. ondansetron 2018-0 Yes 4mg Take 1 Univ ers 4 mg 3-14 tablet by ity of disintegrat 00:00: mouth [place] ing tablet 00 every 4 Medica l (four) Branch hours as needed for Nausea and Vomiting (N/V). Butalbital- 2018-0 Yes 1{capsu Take 1 U nivers Acetaminoph 3-14 le} capsule by it y of en-Caff 00:00: mouth [place] (FIORICET) 00 every 6 Medica l 50-300-40 (six) Branch mg per hours as capsule needed for Pain (scale 4-6). azithromyci 2018-0 Yes 250mg Take 1 Uni vers n 3-14 tablet by ity of (ZITHROMAX 00:00: mouth [place] Z-JUAN) 250 00 SEE-INSTRU Med ical mg tablet CTIONS. Branch Take 500 mg day 1, then 250 mg days 2 to 5. ondansetron 2018-0 Yes 4mg Take 1 Univ ers 4 mg 3-14 tablet by ity of disintegrat 00:00: mouth [place] ing tablet 00 every 4 Medica l (four) Branch hours as needed for Nausea and Vomiting (N/V). Butalbital- 2018-0 Yes 1{capsu Take 1 U nivers Acetaminoph 3-14 le} capsule by it y of en-Caff 00:00: mouth [place] (FIORICET) 00 every 6 Medica l 50-300-40 (six) Branch mg per hours as capsule needed for Pain (scale 4-6). azithromyci 2018-0 Yes 250mg Take 1 Uni vers n 3-14 tablet by ity of (ZITHROMAX 00:00: mouth [place] Z-JUAN) 250 00 SEE-INSTRU Med ical mg tablet CTIONS. Branch Take 500 mg day 1, then 250 mg days 2 to 5. ondansetron Yes 4mg Take 1 Univ ers 4 mg 3-14 tablet by ity of disintegrat 00:00: mouth [place] ing tablet 00 every 4 Medica l (four) Branch hours as needed for Nausea and Vomiting (N/V). Butalbital- Yes 1{capsu Take 1 U nivers Acetaminoph 3-14 le} capsule by it y of en-Caff 00:00: mouth [place] (FIORICET) 00 every 6 Medica l 50-300-40 (six) Branch mg per hours as capsule needed for Pain (scale 4-6). azithromyci Yes 250mg Take 1 Uni vers n 3-14 tablet by ity of (ZITHROMAX 00:00: mouth [place] Z-JUAN) 250 00 SEE-INSTRU Med ical mg tablet CTIONS. Branch Take 500 mg day 1, then 250 mg days 2 to 5. lisinopril- 2016-02 Yes 1{tbl} Take 1 Un dejon hydrochloro 2-13 tablet by ity of thiazide 22:12: mouth [place] 20-12.5 mg 34 daily. Medical per tablet Branch PANTOPRAZOL 2016-02 Yes 40mg Take 1 Univ ers E 40 mg EC 0-17 tablet by ity of tablet 00:00: mouth [place] 00 daily. Medical Branch PANTOPRAZOL 2016-02 Yes 40mg Take 1 Univ ers E 40 mg EC 0-17 tablet by ity of tablet 00:00: mouth [place] 00 daily. Medical Branch PANTOPRAZOL 2016-02 Yes 40mg Take 1 Univ ers E 40 mg EC 0-17 tablet by ity of tablet 00:00: mouth [place] 00 daily. Medical Branch PANTOPRAZOL 2016-02 Yes 40mg Take 1 Univ ers E 40 mg EC 0-17 tablet by ity of tablet 00:00: mouth [place] 00 daily. Medical Branch estradiol Yes [id number] .5mg Take 1 U nivers 0.5 mg 5-16 tablet by ity of tablet 00:00: mouth [place] 00 daily. Medical Branch estradiol Yes [id number] .5mg Take 1 U nivers 0.5 mg 5-16 tablet by ity of tablet 00:00: mouth [place] 00 daily. Medical Branch estradiol 2017- Yes [id number] .5mg Take 1 U nivers 0.5 mg 5-16 tablet by ity of tablet 00:00: mouth [place] 00 daily. Medical Branch estradiol 2016- Yes [id number] .5mg Take 1 U nivers 0.5 mg 5-16 tablet by ity of tablet 00:00: mouth [place] 00 daily. Medical Branch dicyclomine 2015-02 Yes 20mg Take 1 Univ ers (BENTYL) 20 0-13 tablet by ity of mg tablet 00:00: mouth 4 [place] 00 (four) Medical times Branch daily. proMETHazin 2015-02 Yes 25mg Take 1 Univ ers e 0-13 tablet by ity of (PHENERGAN) 00:00: mouth [place] 25 mg 00 every 6 Medical tablet (six) Branch hours as needed for Nausea and Vomiting (N/V). dicyclomine 2015-02 Yes 20mg Take 1 Univ ers (BENTYL) 20 0-13 tablet by ity of mg tablet 00:00: mouth (four) Medical times Branch daily. proMETHazin 2015-02 Yes 25mg Take 1 Univ ers e 0-13 tablet by ity of (PHENERGAN) 00:00: mouth [place] 25 mg 00 every 6 Medical tablet (six) Branch hours as needed for Nausea and Vomiting (N/V). dicyclomine 2015-02 Yes 20mg Take 1 Univ ers (BENTYL) 20 0-13 tablet by ity of mg tablet 00:00: mouth 4 00 (four) Medical times Branch daily. proMETHazin 2015-02 Yes 25mg Take 1 Univ ers e 0-13 tablet by ity of (PHENERGAN) 00:00: mouth [place] 25 mg 00 every 6 Medical tablet (six) Branch hours as needed for Nausea and Vomiting (N/V). dicyclomine 2015-02 Yes 20mg Take 1 Univ ers (BENTYL) 20 0-13 tablet by ity of mg tablet 00:00: mouth 4 00 (four) Medical times Branch daily. proMETHazin 2015-02 Yes 25mg Take 1 Univ ers e 0-13 tablet by ity of (PHENERGAN) 00:00: mouth [place] 25 mg 00 every 6 Medical tablet (six) Branch hours as needed for Nausea and Vomiting (N/V). Protonix Protonix Yes Judy 1 tablet Co mmon [facility] Immunizations Ordered Filled Immunization Date Status Comments [facility] e Immunization Name Name Influenza Virus 2016-12-08 Completed Universit y of Vaccine Quad IM 3+ 00:00:00 [facility] Influenza Virus 2016-12-08 Completed Universit y of Vaccine Quad IM 3+ 00:00:00 [facility] Influenza Virus 2016-12-08 Completed Universit y of Vaccine Quad IM 3+ 00:00:00 [facility] Influenza Virus 2016-12-08 Completed Universit y of Vaccine Quad IM 3+ 00:00:00 [facility] TDAP 2013-02-16 Completed University 00:00:00 [facility] TDAP 2013-02-16 Completed University 00:00:00 [facility] TDAP 2013-02-16 Completed [facility] 00:00:00 [facility] TDAP 2013-02-16 Completed University 00:00:00 [facility] Influenza Virus 2010-12-03 Completed Universit y of Vaccine (3+ yrs) 00:00:00 [facility] Influenza Virus 2010-12-03 Completed Universit y of Vaccine (3+ yrs) 00:00:00 [facility] Influenza Virus 2010-12-03 Completed Universit y of Vaccine (3+ yrs) 00:00:00 [facility] Influenza Virus 2010-12-03 Completed Universit y of Vaccine (3+ yrs) 00:00:00 [facility] Influenza Virus 2009-12-04 Completed Universit y of Vaccine (3+ yrs) 00:00:00 [facility] Influenza Virus 2009-12-04 Completed Universit y of Vaccine (3+ yrs) 00:00:00 [facility] Influenza Virus 2009-12-04 Completed Universit y of Vaccine (3+ yrs) 00:00:00 [facility] Influenza Virus 2009-12-04 Completed Universit y of Vaccine (3+ yrs) 00:00:00 [facility] Vital Signs Vital Name Observation Time Observation Value Comments Source Height 2021-06-28 01:15:00 165.1 CM Weight 2021-06-28 01:15:00 96.16 KG Height 2021-06-26 18:34:00 165.1 CM Weight 2021-06-26 18:34:00 94.34 KG Height 2021-05-28 14:56:00 165.1 CM Weight 2021-05-28 14:56:00 97.52 KG Height 2021-01-15 14:37:00 162.56 CM Weight 2021-01-15 14:37:00 97.52 KG Height 2020-12-28 20:53:00 165.1 CM Weight 2020-12-28 20:53:00 97.52 KG Height 2020-09-29 20:30:00 165.1 CM Weight 2020-09-29 20:30:00 92.98 KG Systolic blood 2020-09-19 16:50:00 121 mm[Hg] Univer sity of pressure [place] [facility] Diastolic blood 2020-09-19 16:50:00 69 mm[Hg] Unive rsity of pressure [place] [facility] Heart rate 2020-09-19 16:50:00 68 /min Universi ty of [place] [facility] Respiratory rate 2020-09-19 16:50:00 19 /min Univ ersity of [place] [facility] Oxygen saturation in 2020-09-19 16:50:00 96 /min University of Arterial blood by [place] [employer] sergio Pulse oximetry Branch Body temperature 2020-09-19 16:08:00 36.78 Anita Univ ersity of [place] [facility] Body height 2020-09-17 15:25:00 162.6 cm Universi ty of [place] [facility] Body weight 2020-09-17 15:25:00 74.8 kg Universi ty [facility] Medical Branch BMI 2020-09-17 15:25:00 28.29 kg/m2 Universi ty [facility] Medical Branch Systolic blood 2020-09-19 16:50:00 121 mm[Hg] Univer sity of pressure [place] [facility] Diastolic blood 2020-09-19 16:50:00 69 mm[Hg] Unive rsity of pressure [place] [facility] Heart rate 2020-09-19 16:50:00 68 /min Universi ty of [place] [facility] Respiratory rate 2020-09-19 16:50:00 19 /min Univ ersity of [place] [facility] Oxygen saturation in 2020-09-19 16:50:00 96 /min University of Arterial blood by [employer] sergio Pulse oximetry Branch Body temperature 2020-09-19 16:08:00 36.78 Anita Univ ersity of [place] [facility] Body height 2020-09-17 15:25:00 162.6 cm [facility] Body weight 2020-09-17 15:25:00 74.8 kg [facility] BMI 2020-09-17 15:25:00 28.29 kg/m2 [facility] Height 2020-08-01 19:01:00 165.1 CM Weight 2020-08-01 19:01:00 93.6 KG Procedures Procedure Date / Time Performing Clinician Source Performed COLONOSCOPY (ENDO) 2020-09-19 15:47:32 Harsha Rivera [facility] COLONOSCOPY (ENDO) 2020-09-19 15:47:32 Harsha Rivera [facility] EGD (ENDO) 2020-09-19 15:32:51 Harsha Rivera [facility] EGD (ENDO) 2020-09-19 15:32:51 Harsha Rivera [facility] ESOPHAGOGASTRODUODENOSCOPY 2020-09-19 15:27:00 Lexii Alvarez [facility] COLONOSCOPY 2020-09-19 15:27:00 Eda Alvarez [facility] EXTERNAL PROVIDER RECORDS 2020-09-14 05:01:00 Doctor Unassigned, [place] [facility] Name [facility] EXTERNAL PROVIDER RECORDS 2020-09-14 05:01:00 Doctor Unassigned, [place] [facility] Name [facility] INSURANCE CORRESPONDENCE 2020-09-11 05:01:00 Doctor Unassigned, [place] [facility] Name [facility] Encounters Start End Encounter Admission Attending Care Care Encounter Source Date/Time Date/Time Type Type Clinicians Facility Department ID 2021-03-[address] [facility] [id number] Common 14:11:12 Aleta 11504 [facility] 2021-03-[address] [facility] [id number] Common 14:10:20 Aleta [id number] [facility] 2021-03-[address] [facility] [id number] Common 14:01:47 Aleta 09556 [facility] 2021-03-13 Outpatient Ralls, STLMLC STLMLC [id number] Common 13:41:05 Aleta [id number] [facility] 2021-03-13 Outpatient Ralls, STLMLC STLMLC [id number] Common 13:22:20 Aleta [id number] [facility] 2021-03-13 Outpatient Ralls, STLMLC STLMLC [id number] Common 13:01:46 Aleta 33443 [facility] 2021-03-13 Outpatient Ralls, STLMLC STLMLC [id number] Common 12:25:28 Aleta 73795 [facility] 2021-03-13 Outpatient Ralls, STLMLC STLMLC [id number] Common 12:22:12 Aleta 02831 [facility] 2021-03-13 Outpatient Ralls, STLMLC STLMLC [id number] Common 12:18:36 Aleta 45767 [facility] 2021-03-13 Outpatient Ralls, STLMLC STLMLC [id number] Common 12:11:37 Aleta 69973 [facility] 2021-03-13 Outpatient Millender, STLMLC STLMLC [id number] Common 11:10:58 Judy [id number] [facility] 2021-03-13 Outpatient Millender, STLMLC STLMLC [id number] Common 11:07:25 Judy [id number] [facility] 2020-12-17 Outpatient R CHARAFEDDIN [facility] AFSHAN [id number] Univers 12:05:12 EDA Rossi [facility] 2020-12-17 Outpatient R [facility] [id number] Univers 10:24:27 EDA Rossi [facility] 2021-06-28 2021-06-28 Emergency E RONALDO KHAN [facility] [id number] [place] 01:07:00 03:35:00 [facility] 2021-06-26 2021-06-26 Emergency E KADEN [facility] [id number] [place] 18:17:00 [facility]:30:[facility] 2021-05-28 Emergency E VINES, [facility] [id number] [facility] 14:46:00 19:50:00 [facility]IJ[facility] 2021-05-28 2021-05-28 ambulatory STLMLC STLMLC [id number] Common 00:00:00 00:00:00 [facility] 2021-05-14 2021-05-14 ambulatory STLMLC STLMLC [id number] Common 00:00:00 00:00:00 [facility] 2021-03-28 2021-03-28 Emergency E KING [facility] [id number] [facility] 19:49:00 22:44:00 [facility] 2021-01-30 2021-01-30 ambulatory STLMLC STLMLC [id number] Common 00:00:00 00:00:00 [facility] 2021-01-17 2021-01-17 ambulatory STLMLC STLMLC [id number] Common 00:00:00 00:00:00 [facility] 2021-01-15 2021-01-15 Emergency E ROSHAN [facility] [id number] [facility] 14:05:00 17:57:00 [facility] 2021-01-07 2021-01-07 ambulatory STLMLC STLMLC [id number] Common 00:00:00 00:00:00 [facility] 2020-12-28 2020-12-28 Emergency E KADEN [facility] [id number] [facility] 20:33:00 23:42:00 ELIO [facility] 2020-12-27 2020-12-27 ambulatory STLMLC STLMLC [id number] Common 00:00:00 00:00:00 [facility] 2020-09-29 2020-09-29 Emergency E ROSHAN [facility] [id number] [facility] 19:46:00 23:15:00 [facility] 2020-09-27 2020-09-27 Outpatient STLMLC STLMLC [id number] Common 00:00:00 00:00:00 [facility] 2020-09-19 2020-09-19 Surgery [facility] [id number] Univers 11:35:00 12:26:00 Eda rossi [id number] ity of [place] [id number] [place] [id number] [facility] 020 Branch 2020-09-19 2020-09-19 Hospital [facility] [id number] Univers 09:21:00 11:55:00 Encounter Eda rossi [id number] ity [place] [id number] [id number] [facility] 071 Branch 2020-09-18 2020-09-18 Laboratory Only, Adc Test [facility] [id number]. [id number] Univers 12:44:53 12:59:53 Only Eda Alvarez 350.1.1 3.10 [place] [id number] [place] [id number] [facility] 353 Branch 2020-09-18 2020-09-18 Outpatient R [facility] [id number] Univers 09:15:00 09:15:00 [id number] ity of [facility] 2020-09-18 2020-09-[address] [facility] [id number] Univers 09:15:00 09:15:00 EDA Rossi o f [facility] 2020-09-11 2020-09-11 Orders Doctor VALDOVINOS [id number] Univers 00:00:00 00:00:00 Only Unassigned, NORBERT[facility] [id number] [facility] 4.2.7.2.686 Jakub as [id number] [facility] 009 Branch 2020-09-10 2020-09-10 Outpatient R [facility] [id number] Univers 10:00:00 10:00:00 [id number] ity of [facility] 2020-09-10 2020-09-10 Outpatient R JOSE D [facility] [id number] Univers 10:00:00 10:00:00 EDA Rossi [facility] 2020-09-03 2020-09-03 Outpatient STLMLC STLMLC [id number] Common 00:00:00 00:00:00 [facility] 2020-08-21 2020-08-26 Inpatient E [facility] [id number] [facility] 16:11:00 14:10:00 MILIND 2020-08-17 2020-08-17 Outpatient STLMLC STLMLC [id number] Common 00:00:00 00:00:00 [facility] 2020-07-04 2020-07-04 Outpatient STLMLC STLMLC [id number] Common 00:00:00 00:00:00 [facility] 2020-06-25 2020-06-25 Outpatient STLMLC STLMLC [id number] Common 00:00:00 00:00:00 [facility] 2020-06-05 2020-06-05 Outpatient STLMLC STLMLC [id number] Common 00:00:00 00:00:00 [facility] 2020-04-18 2020-04-18 Outpatient STLMLC STLMLC [id number] Common 00:00:00 00:00:00 [facility] 2020-04-10 2020-04-10 Outpatient STLMLC STLMLC [id number] Common 00:00:00 00:00:00 [facility] 2020-03-27 2020-03-27 Outpatient STLMLC STLMLC [id number] Common 00:00:00 00:00:00 [facility] 2020-03-14 2020-03-14 Outpatient STLMLC STLMLC [id number] Common 00:00:00 00:00:00 [facility] 2020-02-22 2020-02-22 Outpatient STLMLC STLMLC [id number] Common 00:00:00 00:00:00 [facility] 2019-06-10 2019-06-10 Emergency E MARLEENFABIOLARL MHBL MHBL [id number] MHBL 11:10:00 14:53:00 , JOSÉ MIGUEL 2019-05-15 2019-05-16 Inpatient [facility] [id number] 15:45:00 19:33:00 KIKE marrero [facility] 2019-05-12 2019-05-12 Outpatient [facility] [id number] Common 13:55:00 13:55:00 t [facility] Road [facility] it Road [facility] 2019-05-10 2019-05-10 Outpatient R RADIOLOGY [facility] [id number] Univers 08:30:00 08:30:00 [id number] [facility] 2019-04-15 2019-04-15 [facility] [id number] Common 14:26:00 14:26:00 t [facility] Road [facility] it Road [facility] 2019-03-30 2019-03-30 Outpatient [facility] [id number] Common 15:15:00 15:15:00 t [facility] [address] Road [facility] 2018-07-21 2018-07-21 Emergency E MHBL BL [id number] BL 10:37:00 10:37:00 Results Test Description Test Time Test Comments Results Result [facility] e Comments CT ABDOMEN AND 2021-06-28 PELVIS WITH 03:19:42 CONTRAST*WW* [facility] : 1975 Sex: F Ex am: CT abdomen and pelvis with contrast.Location: H 12History: Abdominal painTechnique: Enhanced spiral slices were taken from the domes of the diaphragm, through the pubic symphysis. Sagittal and coronal reformations were performed. One or more of the following dose reduction techniques were used: Automated exposure control, adjustment of the mA and/or kV according to patient size, and/or utilization of iterative reconstruction technique.Findings:Th e liver is diffusely of decreased attenuation consistent fatty infiltration. No mass is seen. The intra-and extrahepatic biliary tree is normal. The hepatic and portal veins are patent. The gallbladder has been removed The pancreas is normal. The pancreatic duct is normal in caliber. The spleen and adrenal glands are normal in size and shape.The kidneys are unremarkable. No perinephric fluid collections or hydronephrosis is seen.The large and small intestine are normal in caliber. The appendix is normal.No lymphadenopathy is found in the abdomen or the pelvis. No free fluid is seen.The uterus has been removed.The lung bases are clear.No incidental findings are noted.Impression:1. No acute abdominal findings.2. Fatty liver.3. Status post prostatectomy.4. Status post hysterectomy.5. Stable exam.Electronically signed by: Bhargav Jacques MD 06/28/2021 3:19 AM CDT AMYLASE AND LIPASE 2021-06-28 02:20:00 Test Item Value Reference Range Interpretation Comme nts AMYLASE (test code = 10A) 42 U/L 28-100 LIPASE (test code = 60A) 44 IU/L 12-53 COMPREHENSIVE METABOLIC LION 2021-06-28 02:20:00 Test Item Value Reference Range Interpretation Comments GLUCOSE (test code 108 mg/dL 75-100 H = 06D) SODIUM (test code 139 mmol/L 136-145 = 01A) POTASSIUM (test 3.2 mmol/L 3.6-5.1 L code = 01B) CHLORIDE (test 103 mmol/L 98-107 code = 04A) CO2 (test code = 26 mmol/L 20-31 02A) ANION GAP (test 13.2 mmol/L code = ANG) BUN (test code = 9 mg/dL 9-23 05D) CREATININE (test 0.9 mg/dL 0.6-1.0 code = 03E) GFR (test code = 76 See_Comment L [Automated GFR) mL/min/1.73m\S\2 message] Th e system which generated this result transmit evin reference range : >=90. The reference range was not used to interpret this result as normal/abnormal . GFR 89 See_Comment L [Automated ZAMBIAN (test mL/min/1.73m\S\2 message] The code = GFRAA) system which generated this result transmit evin reference range : >=90. The reference range was not used to interpret this result as normal/abnormal . EGFR (test code = eGFR BY EGFR) CKD-EPI CALCULATION IS NOT RECOMMENDED FOR PATIENTS UNDER 18 YEARS OF AGE. BUN/CREA (test 10 12-20 L code = BCR) CALCIUM (test code 8.9 mg/dL 8.3-10.6 = 09D) BILI TOTAL (test 0.3 mg/dL 0.2-1.0 code = 11A) PROTEIN (test code 7.6 g/dL 5.7-8.2 = 07D) ALBUMIN (test code 4.1 g/dL 3.2-4.8 = 08D) GLOBULIN (test 3.5 g/dL 1.5-3.8 code = GLB) ALB/GLOB (test 1.2 1.0-2.6 code = AGRR) ALK PHOS (test 119 IU/L 46-116 H code = 35A) AST (test code = 86 IU/L See_Comment H [Automated 30A) message] The system which generated this result transmit evin reference range : <=33. The reference range was not used to interpret this result as normal/abnormal . ALT (test code = 95 IU/L 10-49 H 31A) CBC (INCLUDES AUTOMATED DIFFERENTIAL)*[id number] 01:38:00 Test Item Value Reference Range Interpretation Comments WBC (test code = WBC) 9.5 10\S\3/uL 4.5-11.0 RBC (test code = RBC) 4.20 10\S\6/uL 4.20-5.60 HGB (test code = HBG) 12.7 g/dL 12.0-15.5 HCT (test code = HCT) 38.5 % 35.0-44.0 MCV (test code = MCV) 91.7 fL 81.0-99.0 MCH (test code = MCH) 30.2 pg 27.0-31.0 MCHC (test code = MCHC) 33.0 g/dL 32.0-36.0 RDW (test code = RDW) 12.7 % 11.5-14.5 PLT (test code = PLT) 287 10\S\3/uL 130-400 MPV (test code = MPV) 11.0 fL 9.4-12.4 NEUTROP # (test code = NE#) 4.6 10\S\3/uL 1.6-8.0 LYMPH # (test code = LY#) 3.6 10\S\3/uL 1.1-3.5 H MONOCYTE # (test code = MO#) 0.8 10\S\3/uL 0.0-1.1 EOSINOPH # (test code = EO#) 0.3 10\S\3/uL 0.0-0.7 BASOPHIL # (test code = BA#) 0.1 10\S\3/uL 0.0-0.3 IG # (test code = IG#) 0.04 10\S\3/uL 0.00-0.06 NRBC # (test code = NRBC#) 0.00 10\S\3/uL 0.00-0.01 NEUTROPH % (test code = NE%) 49.0 % 35.0-73.0 LYMPH % (test code = LY%) 38.0 % 20.0-55.0 MONO % (test code = MO%) 8.8 % 2.5-10.0 EOSINOPH % (test code = EO%) 3.3 % 0.0-5.0 BASOPHIL % (test code = BA%) 0.5 % 0.0-2.0 IG % (test code = IG%) 0.4 % 0.0-0.8 NRBC% (test code = NRBC%) 0.0 % 0.0-0.2 MANDIFF (test code = WMDIFF) NO NO RBC MORPH (test code = NORMAL WRBCMOR) CT ABDOMEN AND PELVIS WITH CONTRAST*WW*2021-06-26 21:47:[address] [facility] [place] [place] [facility] : 1975 Sex: FExam: CT abdomen and pelvis with contrast.Location: 12History: Lower abdominal painCOMPARISON: 05/28/2021.Technique: Enhanced spiral slices were taken from the domes of the diaphragm, through the pubic symphysis. Coronal reformations were performed. One or more of the following dose reduction techniques were used: Automated exposure control, adjustment of the mA and/or kV according to patient size, and/or utilization of iterative reconstruction technique.Findings:The liver is diffusely of decreased attenuation consistent fatty infiltration. No mass is seen. The intra-and extrahepatic biliary tree is normal. The hepatic and portal veins are patent. The gallbladder has been removed. The pancreasis normal. The pancreatic duct is normal in caliber. The spleen and adrenal glands are normal in size and shape.The kidneys are unremarkable. No perinephric fluid collections or hydronephrosis is seen.The large and small intestine are normal in caliber. The appendix is normal. No lymphadenopathy is found in the abdomen or the pelvis. No free fluid is seen.The uterus has been removed. The pelvic structures are otherwise unremarkable.The lung bases are clear.No incidental findings are noted.Impression:1. No intra-abdominal findings.2. Fatty liver.3. Status post cholecystectomy.4. Status post hysterectomy.Electronically signed by: Bhargav Jacques MD 06/26/2021 9:47 PM CDT [id number] WITH MICRO *WW*2021-06-26 20:27:00 Test Item Value Reference Range Interpretation Comments COLOR (test code = COLU) YELLOW YELLOW CLARITY (test code = CLA) SLT HAZY CLEAR A GLUCOSE UR (test code = UA GLUCOSE) NEGATIVE NEGATIVE BILI UR (test code = BILE) NEGATIVE NEGATIVE KETONES UR (test code = MADELEINE) TRACE NEGATIVE A SP GRAVITY (test code = SPGR) 1.015 1.005-1.030 PH UR (test code = PH) 6.5 4.5-8.0 PROTEIN UR (test code = PU) NEGATIVE NEGATIVE UROBIL UR (test code = UROQ) 4.0 EU/dL 0.2-1.0 H NITRITE UR (test code = NITRITE) NEGATIVE NEGATIVE BLOOD UR (test code = UA BLOOD) NEGATIVE NEGATIVE LEUK ES UR (test code = LEUK) NEGATIVE NEGATIVE WBC UR (test code = UWBC) 2 /HPF 0-5 RBC UR (test code = URBC) 2 /HPF 0-2 EPITH UR (test code = UEPC) FEW /LPF FEW BACTERIA UR (test code = UBACT) FEW /HPF NONE A CAST UR (test code = CAST) /LPF NONE CRYSTAL UR (test code = CRYU) / LPF NONE MUCUS UR (test code = MUC) / HPF NONE AMORPH UR (test code = SYDNI) / HPF NONE TRICH UR (test code = UTRICH) /HPF NONE YEAST UR (test code = UY) /HPF NONE SPERM UR (test code = USPERM) /HPF NONE AMYLASE AND LIPASE 2021-06-26 19:55:00 Test Item Value Reference Range Interpretation Comments AMYLASE (test code = 10A) 42 U/L 28-100 LIPASE (test code = 60A) 36 IU/L 12-53 COMPREHENSIVE METABOLIC LION 2021-06-26 19:55:00 Test Item Value Reference Range Interpretation Comments GLUCOSE (test code 102 mg/dL 75-100 H = 06D) SODIUM (test code 138 mmol/L 136-145 = 01A) POTASSIUM (test 3.7 mmol/L 3.6-5.1 code = 01B) CHLORIDE (test 100 mmol/L 98-107 code = 04A) CO2 (test code = 30 mmol/L 20-31 02A) ANION GAP (test 11.7 mmol/L code = ANG) BUN (test code = 9 mg/dL 9-23 05D) CREATININE (test 0.8 mg/dL 0.6-1.0 code = 03E) GFR (test code = 88 See_Comment L [Automated GFR) mL/min/1.73m\S\2 message] Th e system which generated this result transmit evin reference range : >=90. The reference range was not used to interpret this result as normal/abnormal . GFR 102 See_Comment [Automated ZAMBIAN (test mL/min/1.73m\S\2 message] The code = GFRAA) system which generated this result transmit evin reference range : >=90. The reference range was not used to interpret this result as normal/abnormal . EGFR (test code = eGFR BY EGFR) CKD-EPI CALCULATION IS NOT RECOMMENDED FOR PATIENTS UNDER 18 YEARS OF AGE. BUN/CREA (test 11 12-20 L code = BCR) CALCIUM (test code 9.1 mg/dL 8.3-10.6 = 09D) BILI TOTAL (test 0.5 mg/dL 0.2-1.0 code = 11A) PROTEIN (test code 7.9 g/dL 5.7-8.2 = 07D) ALBUMIN (test code 4.5 g/dL 3.2-4.8 = 08D) GLOBULIN (test 3.4 g/dL 1.5-3.8 code = GLB) ALB/GLOB (test 1.3 1.0-2.6 code = AGRR) ALK PHOS (test 126 IU/L 46-116 H code = 35A) AST (test code = 108 IU/L See_Comment H [Automated 30A) message] The system which generated this result transmit evin reference range : <=33. The reference range was not used to interpret this result as normal/abnormal . ALT (test code = 110 IU/L 10-49 H 31A) TROPONIN I 2021-06-26 19:53:00 Test Item Value Reference Range Interpretation Comments TROPONIN I (test code = A84) <2.50 pg/mL 0.00-45.20 CBC (INCLUDES AUTOMATED DIFFERENTIAL)*[id number] 19:47:00 Test Item Value Reference Range Interpretation Comments WBC (test code = WBC) 13.4 10\S\3/uL 4.5-11.0 H RBC (test code = RBC) 4.42 10\S\6/uL 4.20-5.60 HGB (test code = HBG) 13.6 g/dL 12.0-15.5 HCT (test code = HCT) 40.5 % 35.0-44.0 MCV (test code = MCV) 91.6 fL 81.0-99.0 MCH (test code = MCH) 30.8 pg 27.0-31.0 MCHC (test code = MCHC) 33.6 g/dL 32.0-36.0 RDW (test code = RDW) 12.9 % 11.5-14.5 PLT (test code = PLT) 343 10\S\3/uL 130-400 MPV (test code = MPV) 11.7 fL 9.4-12.4 NEUTROP # (test code = NE#) 7.0 10\S\3/uL 1.6-8.0 LYMPH # (test code = LY#) 4.9 10\S\3/uL 1.1-3.5 H MONOCYTE # (test code = MO#) 1.1 10\S\3/uL 0.0-1.1 EOSINOPH # (test code = EO#) 0.3 10\S\3/uL 0.0-0.7 BASOPHIL # (test code = BA#) 0.1 10\S\3/uL 0.0-0.3 IG # (test code = IG#) 0.07 10\S\3/uL 0.00-0.06 H NRBC # (test code = NRBC#) 0.00 10\S\3/uL 0.00-0.01 NEUTROPH % (test code = NE%) 52.3 % 35.0-73.0 LYMPH % (test code = LY%) 36.4 % 20.0-55.0 MONO % (test code = MO%) 8.2 % 2.5-10.0 EOSINOPH % (test code = EO%) 2.2 % 0.0-5.0 BASOPHIL % (test code = BA%) 0.4 % 0.0-2.0 IG % (test code = IG%) 0.5 % 0.0-0.8 NRBC% (test code = NRBC%) 0.0 % 0.0-0.2 MANDIFF (test code = WMDIFF) NO NO RBC MORPH (test code = NORMAL WRBCMOR) SERUM MONOCLONAL *WW*2021-06-26 19:47:00 Test Item Value Reference Range Interpretation Comments PREG SRM (test code = PGS) NEGATIVE NEGATIVE CT ABDOMEN AND PELVIS WITHOUT CONTRAST *WW*2021-05-28 19:03:[address] [facility] [place] [place] [facility]: GORDON BUSH : 1975 Sex: FEXAMINATION:CT ABDOMEN AND PELVIS WITHOUT CONTRAST *WW*CLINICAL INDICATION:Female, 45 years old with Abdominal painTECHNIQUE: Thin section axial noncontrast contiguous images were obtained through theabdomen and pelvis followed by coronal and sagittal multiplanar reformations.One or more of the following dose reduction techniques were used: Automated exposure control, adjustment of the mA and/or kVaccording to patient size, and/or iterative reconstruction. COMPARISON:NoneFINDINGS:Characterizationof the solid organs is limited by lack of contrast media.Lower Chest: Visualized lung bases are clear. Heart is normal in size. No pericardial or pleural effusion.Liver: Normal in size and contour, butdiffusely infiltrated by fat. Bile ducts are of normal caliber.Gallbladder: Surgically absent.Pancreas: Normal appearance.Spleen: Normal in size and contour.Adrenals: Normal configuration.Kidneys and ureters: Normal size and contour. No hydronephrosis.Bladder/Reproductive Organs: Normal in appearance. Unremarkable reproductive organsBowel: Loops of bowel without wall thickening or obstruction. Normal appendix. No free air, free fluid, or fluid collection.Lymph nodes: There are no pathologically enlarged abdominopelvic lymph nodes.Retroperitoneum: No mass or hemorrhage. Abdominal aorta and inferior vena cava are normal in course and caliber.Abdominal wall: No hernia or mass.Bones: No acute abnormality or suspicious bony lesion.IMPRESSION:No acute abdominopelvic abnormality.Electronically signed by: Valerio Prakash MD 05/28/2021 7:03 PM CDT [id number] METABOLIC LION *WW* 2021-05-28 17:33:00 Test Item Value Reference Range Interpretation Comments GLUCOSE (test code 98 mg/dL 75-100 = 06D) SODIUM (test code 140 mmol/L 136-145 = 01A) POTASSIUM (test 3.6 mmol/L 3.6-5.1 code = 01B) CHLORIDE (test 104 mmol/L 98-107 code = 04A) CO2 (test code = 29 mmol/L 20-31 02A) ANION GAP (test 10.6 mmol/L code = ANG) BUN (test code = 9 mg/dL 9-23 05D) CREATININE (test 0.7 mg/dL 0.6-1.0 code = 03E) GFR (test code = 108 See_Comment [Automated GFR) mL/min/1.73m\S\2 message] Th e system which generated this result transmit evin reference range : >=90. The reference range was not used to interpret this result as normal/abnormal . EGFR (test code = eGFR BY EGFR) CKD-EPI CALCULATION IS NOT RECOMMENDED FOR PATIENTS UNDER 18 YEARS OF AGE. BUN/CREA (test 12 12-20 code = BCR) CALCIUM (test code 9.2 mg/dL 8.3-10.6 = 09D) BILI TOTAL (test 0.4 mg/dL 0.2-1.0 code = 11A) PROTEIN (test code 7.6 g/dL 5.7-8.2 = 07D) ALBUMIN (test code 4.3 g/dL 3.2-4.8 = 08D) GLOBULIN (test 3.3 g/dL 1.5-3.8 code = GLB) ALB/GLOB (test 1.3 1.0-2.6 code = AGRR) ALK PHOS (test 116 IU/L 46-116 code = 35A) AST (test code = 101 IU/L See_Comment H [Automated 30A) message] The system which generated this result transmit evin reference range : <=33. The reference range was not used to interpret this result as normal/abnormal . ALT (test code = 114 IU/L 10-49 H 31A) AMYLASE AND LIPASE *WW*2021-05-28 17:33:00 Test Item Value Reference Range Interpretation Comments AMYLASE (test code = 10A) 48 U/L 30-118 LIPASE (test code = 60A) 38 IU/L 12-53 URINALYSIS WITH MICRO 2021-05-28 16:48:00 Test Item Value Reference Range Interpretation Comments COLOR (test code = COLU) YELLOW YELLOW CLARITY (test code = CLA) SLT HAZY CLEAR A GLUCOSE UR (test code = UA NEGATIVE NEGATIVE GLUCOSE) BILI UR (test code = BILE) NEGATIVE NEGATIVE KETONES UR (test code = MADELEINE) NEGATIVE NEGATIVE SP GRAVITY (test code = SPGR) 1.010 1.005-1.030 PH UR (test code = PH) 6.0 4.5-8.0 PROTEIN UR (test code = PU) NEGATIVE NEGATIVE UROBIL UR (test code = UROQ) 0.2 EU/dL 0.2-1.0 NITRITE UR (test code = NITRITE) NEGATIVE NEGATIVE BLOOD UR (test code = UA BLOOD) TRACE-INTACT NEGATIVE A LEUK ES UR (test code = LEUK) NEGATIVE NEGATIVE WBC UR (test code = UWBC) 1 /HPF 0-5 RBC UR (test code = URBC) 3 /HPF 0-2 H EPITH UR (test code = UEPC) FEW /LPF FEW BACTERIA UR (test code = UBACT) FEW /HPF NONE A CAST UR (test code = CAST) /LPF NONE CRYSTAL UR (test code = CRYU) / LPF NONE MUCUS UR (test code = MUC) / HPF NONE AMORPH UR (test code = SYDNI) / HPF NONE TRICH UR (test code = UTRICH) /HPF NONE YEAST UR (test code = UY) /HPF NONE SPERM UR (test code = USPERM) /HPF NONE URINE MONOCLONAL 2021-05-28 16:40:00 Test Item Value Reference Range Interpretation Comments PREG UR (test code = PGU) NEGATIVE NEGATIVE CBC (INCLUDES AUTOMATED DIFFERENTIAL)*[id number] 16:40:00 Test Item Value Reference Range Interpretation Comments WBC (test code = WBC) 12.0 10\S\3/uL 4.5-11.0 H RBC (test code = RBC) 4.06 10\S\6/uL 4.20-5.60 L HGB (test code = HBG) 12.4 g/dL 12.0-15.5 HCT (test code = HCT) 37.3 % 35.0-44.0 MCV (test code = MCV) 91.9 fL 81.0-99.0 MCH (test code = MCH) 30.5 pg 27.0-31.0 MCHC (test code = MCHC) 33.2 g/dL 32.0-36.0 RDW (test code = RDW) 13.1 % 11.5-14.5 PLT (test code = PLT) 309 10\S\3/uL 130-400 MPV (test code = MPV) 10.8 fL 9.4-12.4 NEUTROP # (test code = NE#) 7.0 10\S\3/uL 1.6-8.0 LYMPH # (test code = LY#) 3.6 10\S\3/uL 1.1-3.5 H MONOCYTE # (test code = MO#) 0.9 10\S\3/uL 0.0-1.1 EOSINOPH # (test code = EO#) 0.3 10\S\3/uL 0.0-0.7 BASOPHIL # (test code = BA#) 0.1 10\S\3/uL 0.0-0.3 IG # (test code = IG#) 0.11 10\S\3/uL 0.00-0.06 H NRBC # (test code = NRBC#) 0.00 10\S\3/uL 0.00-0.01 NEUTROPH % (test code = NE%) 58.2 % 35.0-73.0 LYMPH % (test code = LY%) 30.3 % 20.0-55.0 MONO % (test code = MO%) 7.6 % 2.5-10.0 EOSINOPH % (test code = EO%) 2.6 % 0.0-5.0 BASOPHIL % (test code = BA%) 0.4 % 0.0-2.0 IG % (test code = IG%) 0.9 % 0.0-0.8 H NRBC% (test code = NRBC%) 0.0 % 0.0-0.2 MANDIFF (test code = WMDIFF) NO NO RBC MORPH (test code = NORMAL WRBCMOR) CBC WITH MANUAL DIFF *WW*2021-03-28 21:19:00 Test Item Value Reference Range Interpretation Comments WBC (test code = 15.6 10\S\3/uL 4.5-11.0 H WBC) RBC (test code = 4.10 10\S\6/uL 4.20-5.60 L RBC) HGB (test code = 12.6 g/dL 12.0-15.5 HBG) HCT (test code = 37.7 % 35.0-44.0 HCT) MCV (test code = 92.0 fL 81.0-99.0 MCV) MCH (test code = 30.7 pg 27.0-31.0 MCH) MCHC (test code = 33.4 g/dL 32.0-36.0 MCHC) RDW (test code = 12.8 % 11.5-14.5 RDW) PLT (test code = 340 10\S\3/uL 130-400 PLT) MPV (test code = 10.8 fL 9.4-12.4 MPV) NEUTROP # (test 9.2 10\S\3/uL 1.6-8.0 H code = NE#) LYMPH # (test 4.5 10\S\3/uL 1.1-3.5 H code = LY#) MONOCYTE # (test 1.3 10\S\3/uL 0.0-1.1 H code = MO#) EOSINOPH # (test 0.3 10\S\3/uL 0.0-0.7 code = EO#) BASOPHIL # (test 0.1 10\S\3/uL 0.0-0.3 code = BA#) IG # (test code = 0.13 10\S\3/uL 0.00-0.06 H IG#) NRBC # (test code 0.00 10\S\3/uL 0.00-0.01 = NRBC#) NEUTROPH % (test 59.4 % 35.0-73.0 code = NE%) LYMPH % (test 28.7 % 20.0-55.0 code = LY%) MONO % (test code 8.6 % 2.5-10.0 = MO%) EOSINOPH % (test 2.0 % 0.0-5.0 code = EO%) BASOPHIL % (test 0.5 % 0.0-2.0 code = BA%) IG % (test code = 0.8 % 0.0-0.8 IG%) NRBC% (test code 0.0 % 0.0-0.2 = NRBC%) MAN DIFF (test MANUAL code = HMDIFF) DIFFERENTIAL SEG (test code = 58 % 42-75 SEG) BAND (test code = 0 % 0-8 BAND) LYMPH (test code 27 % 20-51 = LYMPH) ATYP LYMP (test 4 % See_Comment [Automated message] code = ATYL) The system [facility] h generated this result transmit evin reference range : <=5. The refere nce range was not u sed to interpret th is result as normal/abnormal . MONO (test code = 9 % 3-11 MONO) EOS (test code = 2 % 0-10 EOS) BASO (test code = 0 % 0-2 BASO) RBC MORPH (test NORMAL NORMAL code = RBCMORN) PLT EST (test ADEQUATE ADEQUATE code = PLTEST) PLT MORPH (test NORMAL (1.5-3 um) NORMAL code = PLTMOR) AMYLASE AND LIPASE 2021-03-28 21:11:00 Test Item Value Reference Range Interpretation Comments AMYLASE (test code = 10A) 37 U/L 28-100 LIPASE (test code = 60A) 32 IU/L 12-53 COMPREHENSIVE METABOLIC LION 2021-03-28 21:11:00 Test Item Value Reference Range Interpretation Comments GLUCOSE (test code 96 mg/dL 75-100 = 06D) SODIUM (test code 135 mmol/L 136-145 L = 01A) POTASSIUM (test 3.6 mmol/L 3.6-5.1 code = 01B) CHLORIDE (test 102 mmol/L 98-107 code = 04A) CO2 (test code = 24 mmol/L 20-31 02A) ANION GAP (test 12.6 mmol/L code = ANG) BUN (test code = 8 mg/dL 9-23 L 05D) CREATININE (test 0.6 mg/dL 0.6-1.0 code = 03E) GFR (test code = 109 See_Comment [Automated GFR) mL/min/1.73m\S\2 message] Th e system which generated this result transmit evin reference range : >=90. The reference range was not used to interpret this result as normal/abnormal . GFR 127 See_Comment [Automated ZAMBIAN (test mL/min/1.73m\S\2 message] The code = GFRAA) system which generated this result transmit evin reference range : >=90. The reference range was not used to interpret this result as normal/abnormal . EGFR (test code = eGFR BY EGFR) CKD-EPI CALCULATION IS NOT RECOMMENDED FOR PATIENTS UNDER 18 YEARS OF AGE. BUN/CREA (test 13 12-20 code = BCR) CALCIUM (test code 9.4 mg/dL 8.3-10.6 = 09D) BILI TOTAL (test 0.4 mg/dL 0.2-1.0 code = 11A) PROTEIN (test code 7.8 g/dL 5.7-8.2 = 07D) ALBUMIN (test code 4.4 g/dL 3.2-4.8 = 08D) GLOBULIN (test 3.4 g/dL 1.5-3.8 code = GLB) ALB/GLOB (test 1.3 1.0-2.6 code = AGRR) ALK PHOS (test 148 IU/L 46-116 H code = 35A) AST (test code = 98 IU/L See_Comment H [Automated 30A) message] The system which generated this result transmit evin reference range : <=33. The reference range was not used to interpret this result as normal/abnormal . ALT (test code = 97 IU/L 10-49 H 31A) CARDIAC PROFILE 2021-03-28 21:06:00 Test Item Value Reference Range Interpretation Comments TROPONIN I (test code <2.50 pg/mL 0.00-45.20 = A84) Ref Range Change (test Please note the code = REF RANGE) change in reference range CT ABDOMEN AND PELVIS WITHOUT CONTRAST 2021-03-28 20:55:[address] [facility] [place] [place] [facility]: GORDON BUSH : 1975 Sex: FEXAM: CT abdomen and pelvis without contrastDictation location: H10 INDICATION: Abdominal painCOMPARISON: CT abdomen and pelvis on 01/15/2021 and 08/01/2020TECHNIQUE: Axial images of the abdomen and pelvis were obtained without contrast. Coronal and sagittal reformatted images were performed. DISCUSSION:Lower thorax: A 4 mm noncalcified right lower lobe nodule is unchanged from 08/01/2020 and is very l ikely benign. In the absence of a known cancer history, if the patient is low risk, no follow-up is recommended based on 2017 Pat[employer] Society criteria.Hepatobiliary: Moderate to marked hepatic steatosis is noted. No gross evidence of liver lesion is seen. No biliary ductal dilatation.Gallbladder: Summers rgically absent.Spleen: Unremarkable.Pancreas: Partial fatty atrophy. No obvious mass or ductal dilatation is seen.Kidneys: No urinary tract calculi, hydronephrosis, or gross evidence of solid renalmass.Adrenals: Unremarkable.Lymph nodes: No lymphadenopathy.Peritoneum/retroperitoneum: No intraabdominal free air or free fluid.Vessels: Mild atherosclerotic calcification, without abdominal aortic aneurysm.Pelvic organs/bladder: The uterus is surgically absent. No adnexal abnormalities are seen. The bladder is unremarkable.Bowel: Moderate retained stool is seen within the colon. The appendix is normal. No abnormal bowel wall thickening or bowel obstruction is seen.Bones/soft tissues: No fractureor evidence of bony neoplastic process. No hernia is seen.IMPRESSION:1. Normal appendix. No evidenceof acute abdominal inflammation.2. Moderate retained stool within the colon could reflect constipation in the appropriate clinical scenario. There is no bowel obstruction.3. Additional findings includehepatic steatosis, prior cholecystectomy, and prior hysterectomy.One or more of the following dose re duction techniques were used: Automated exposure control, adjustment of the mA and/or kV according to patient size, and/or utilization of iterative reconstruction technique.DLP: 904 mGy-cm CTDI 18 mGyElectronically signed by: Yordy Noel MD 03/28/2021 8:55 PM [employer] [id number] *WW* 2021-03-28 20:33:00 Test Item Value Reference Range Interpretation Comments COLOR (test code = COLU) YELLOW YELLOW CLARITY (test code = CLA) CLEAR CLEAR GLUCOSE UR (test code = UA GLUCOSE) NEGATIVE NEGATIVE BILI UR (test code = BILE) NEGATIVE NEGATIVE KETONES UR (test code = MADELEINE) TRACE NEGATIVE A SP GRAVITY (test code = SPGR) 1.020 1.005-1.030 PH UR (test code = PH) 6.5 4.5-8.0 PROTEIN UR (test code = PU) NEGATIVE NEGATIVE UROBIL UR (test code = UROQ) 2.0 EU/dL 0.2-1.0 H NITRITE UR (test code = NITRITE) NEGATIVE NEGATIVE BLOOD UR (test code = UA BLOOD) NEGATIVE NEGATIVE LEUK ES UR (test code = LEUK) NEGATIVE NEGATIVE AUAM (test code = WAUAM) NO NO CT STONE PROTOCOL STUDY *WW*2021-01-15 16:28:37 [facility] : 1975 Sex: FExam: CT abdomen and pelvis without oral or intravenous contrast.CLINICAL HISTORY: Left flank pain.LOCATION: D4.FINDINGS: Multislice axial images are obtained through the abdomen and pelvis without oral or intravenous contrast. Coronal and sagittal reconstructed images are obtained and are used in interpretation.Comparison is made with previous CT abdomen/pelvis with contrast dated January 03, 2021.There is moderate diffuse fatty infiltration of the liver with significant hepatomegaly again noted measuring 20.4 cm craniocaudal at the midclavicular line. The spleen is at upper size limits measuring 12.1 cm in length. The gallbladder has been surgically removed. The pancreas is within normal limits. The adrenal glands are within normal limits. There is a tiny calculus at the midpole right kidney. The kidneys are otherwise within normal limits. The patient is status post hysterectomy. No significant adenopathy is identified. No free fluid or fluid collections are evident. No focal signs of inflammation are noted. The appendix is normal in appearance. There is a 3 mm noncalcified nodule within the right lower lobe of the lung. This remains stable dating back to at least November 2019 suggesting benign nodule. No acute skeletal or soft tissue abnormalities are identified.IMPRESSION:1. No acute abnormalities.2. There is moderate diffuse fatty infiltration of the liver with significant hepatomegaly again noted.3. The spleen is at upper size limits measuring 12.1 cm in length.4.There is a tiny calculus at the midpole right kidney.*One or more of the following radiation dose reduction techniques was used: automated exposure control, adjustment of mA and/or KV according to patient size, and/or utilization of iterative reconstruction technique.Electronically signed by: Adolfo Frias MD 01/15/2021 4:28 PM [employer] [id number] METABOLIC PANEL *WW*2021-01-15 15:51:00 Test Item Value Reference Range Interpretation Comments GLUCOSE (test code 96 mg/dL 75-100 = 06D) SODIUM (test code 141 mmol/L 136-145 = 01A) POTASSIUM (test 3.5 mmol/L 3.6-5.1 L code = 01B) CHLORIDE (test 106 mmol/L 98-107 code = 04A) CO2 (test code = 30 mmol/L 20-31 02A) ANION GAP (test 8.5 mmol/L code = ANG) BUN (test code = 8 mg/dL 9-23 L 05D) CREATININE (test 0.7 mg/dL 0.6-1.0 code = 03E) GFR (test code = 104 See_Comment [Automated GFR) mL/min/1.73m\S\2 message] e system which generated this result transmit evin reference range : >=90. The reference range was not used to interpret this result as normal/abnormal . GFR 121 See_Comment [Automated ZAMBIAN (test mL/min/1.73m\S\2 message] The code = GFRAA) system which generated this result transmit evin reference range : >=90. The reference range was not used to interpret this result as normal/abnormal . EGFR (test code = eGFR BY EGFR) CKD-EPI CALCULATION IS NOT RECOMMENDED FOR PATIENTS UNDER 18 YEARS OF AGE. BUN/CREA (test 11 12-20 L code = BCR) CALCIUM (test code 9.1 mg/dL 8.3-10.6 = 09D) URINALYSIS 2021-01-15 15:47:00 Test Item Value Reference Range Interpretation Comments COLOR (test code = COLU) YELLOW YELLOW CLARITY (test code = CLA) CLEAR CLEAR GLUCOSE UR (test code = UA GLUCOSE) NEGATIVE NEGATIVE BILI UR (test code = BILE) NEGATIVE NEGATIVE KETONES UR (test code = MADELEINE) NEGATIVE NEGATIVE SP GRAVITY (test code = SPGR) 1.020 1.005-1.030 PH UR (test code = PH) 7.5 4.5-8.0 PROTEIN UR (test code = PU) NEGATIVE NEGATIVE UROBIL UR (test code = UROQ) 2.0 EU/dL 0.2-1.0 H NITRITE UR (test code = NITRITE) NEGATIVE NEGATIVE BLOOD UR (test code = UA BLOOD) NEGATIVE NEGATIVE LEUK ES UR (test code = LEUK) NEGATIVE NEGATIVE AUAM (test code = WAUAM) NO NO CBC (INCLUDES AUTOMATED DIFFERENTIAL)*[id number] 15:42:00 Test Item Value Reference Range Interpretation Comments WBC (test code = WBC) 11.3 10\S\3/uL 4.5-11.0 H RBC (test code = RBC) 4.14 10\S\6/uL 4.20-5.60 L HGB (test code = HBG) 12.7 g/dL 12.0-15.5 HCT (test code = HCT) 38.1 % 35.0-44.0 MCV (test code = MCV) 92.0 fL 81.0-99.0 MCH (test code = MCH) 30.7 pg 27.0-31.0 MCHC (test code = MCHC) 33.3 g/dL 32.0-36.0 RDW (test code = RDW) 13.2 % 11.5-14.5 PLT (test code = PLT) 325 10\S\3/uL 130-400 MPV (test code = MPV) 11.1 fL 9.4-12.4 NEUTROP # (test code = NE#) 5.8 10\S\3/uL 1.6-8.0 LYMPH # (test code = LY#) 3.6 10\S\3/uL 1.1-3.5 H MONOCYTE # (test code = MO#) 1.4 10\S\3/uL 0.0-1.1 H EOSINOPH # (test code = EO#) 0.3 10\S\3/uL 0.0-0.7 BASOPHIL # (test code = BA#) 0.1 10\S\3/uL 0.0-0.3 IG # (test code = IG#) 0.11 10\S\3/uL 0.00-0.06 H NRBC # (test code = NRBC#) 0.00 10\S\3/uL 0.00-0.01 NEUTROPH % (test code = NE%) 51.2 % 35.0-73.0 LYMPH % (test code = LY%) 32.3 % 20.0-55.0 MONO % (test code = MO%) 12.1 % 2.5-10.0 H EOSINOPH % (test code = EO%) 3.0 % 0.0-5.0 BASOPHIL % (test code = BA%) 0.4 % 0.0-2.0 IG % (test code = IG%) 1.0 % 0.0-0.8 H NRBC% (test code = NRBC%) 0.0 % 0.0-0.2 MANDIFF (test code = WMDIFF) NO NO RBC MORPH (test code = NORMAL WRBCMOR) URINE [id number] 23:31:00 Test Item Value Reference Range Interpretation Comments PREG UR (test code = PGU) NEGATIVE NEGATIVE CT ABDOMEN AND PELVIS WITH [id number] 22:35:[address] [facility] [place] [facility]ENTERName: GORDON BUSH : 1975 Sex: FCT OF THE ABDOMEN AND PELVIS WITH CONTRASTLocation H 31HISTORY: Abdominal painTECHNIQUE:5 millimeters contrast enhanced axial images of the abdomen and pelvis provided in venous delays. No PO contrast was administered. The images were reviewed in soft tissue, lung and bone windows. Sagittal and coronal images were reformatted. One or more the following dose reduction techniques is utilized: Useof iterative reconstruction, automated exposure control, adjustment of the mAs and Kv for the patient's weight. DLP 898 mGy-cm. COMPARISON: CT abdomen pelvis dated 09/29/2020FINDINGS:Lung bases: Clear.Liver: Diffuse low-attenuation throughout liver compatible with steatosis. Liver measures 19.7 cm crab catcher niocaudal.Gallbladder: Status post cholecystectomy. No significant abnormality.Pancreas: No significant abnormality.Spleen: No significant abnormality.Kidneys: No significant abnormality.Adrenals: No significant abnormality.Bowel: Colon is diffusely fluid-filled to the rectum. Nondilated overall. No wall thickening or surrounding fat stranding. Small bowel loops are unremarkable.Appendix: Well identified and normal. Peritoneum: No free air or free fluid.Bladder: No significant abnormality.Uterus: Uterus is absent.Adnexal regions: No adnexal fullness.Bone Windows: No significant abnormality.Vascular :No significant abnormality.Lymph Nodes:No significant abnormality.IMPRESSION:1. Diffusely fluid-filled colon. Findings suggest a colitis. Correlate for diarrhea. No aggressive features. No free air orfree fluid.2. Note of diffuse hepatic steatosis with borderline hepatomegaly.3. Status post cholecyst ectomy.Electronically signed by: Valeri Jameson MD 12/28/2020 10:35 PM [facility] [id number] 22:11:00 Test Item Value Reference Range Interpretation Comments MAGNESIUM (test code = 48A) 1.9 mg/dL 1.6-2.6 PHOSPHORUS (P04)2020-12-28 22:11:00 Test Item Value Reference Range Interpretation Comments PHOSPHORUS (test code = 43D) 2.7 mg/dL 2.4-5.1 ALCOHOL BLOOD (ETOH)2020-12-28 21:56:00 Test Item Value Reference Range Interpretation Comments ETOH (test code = ETHANOL HALC) The result is to be used only for medical purposes ALCOHOL (test <10 mg/dL See_Comment [Automated me ssage] code = 56A) The system whic h generated this result transmit evin reference range : <=10. The refer ence range was not u sed to interpret th is result as normal/abnormal . COMPREHENSIVE METABOLIC [id number] 21:56:00 Test Item Value Reference Range Interpretation Comments GLUCOSE (test code 107 mg/dL 75-100 H = 06D) SODIUM (test code 142 mmol/L 136-145 = 01A) POTASSIUM (test 3.4 mmol/L 3.6-5.1 L code = 01B) CHLORIDE (test 108 mmol/L 98-107 H code = 04A) CO2 (test code = 26 mmol/L 20-31 02A) ANION GAP (test 11.4 mmol/L code = ANG) BUN (test code = 8 mg/dL 9-23 L 05D) CREATININE (test 0.7 mg/dL 0.6-1.0 code = 03E) GFR (test code = 104 See_Comment [Automated GFR) mL/min/1.73m\S\2 message] Th e system which generated this result transmit evin reference range : >=90. The reference range was not used to interpret this result as normal/abnormal . GFR 121 See_Comment [Automated ZAMBIAN (test mL/min/1.73m\S\2 message] The code = GFRAA) system which generated this result transmit evin reference range : >=90. The reference range was not used to interpret this result as normal/abnormal . EGFR (test code = eGFR BY EGFR) CKD-EPI CALCULATION IS NOT RECOMMENDED FOR PATIENTS UNDER 18 YEARS OF AGE. BUN/CREA (test 11 12-20 L code = BCR) CALCIUM (test code 9.1 mg/dL 8.3-10.6 = 09D) BILI TOTAL (test 0.2 mg/dL 0.2-1.0 code = 11A) PROTEIN (test code 7.5 g/dL 5.7-8.2 = 07D) ALBUMIN (test code 4.5 g/dL 3.2-4.8 = 08D) GLOBULIN (test 3.0 g/dL 1.5-3.8 code = GLB) ALB/GLOB (test 1.5 1.0-2.6 code = AGRR) ALK PHOS (test 151 IU/L 46-116 H code = 35A) AST (test code = 79 IU/L See_Comment H [Automated 30A) message] The system which generated this result transmit evin reference range : <=33. The reference range was not used to interpret this result as normal/abnormal . ALT (test code = 81 IU/L 10-49 H 31A) LIPASE [id number] 21:56:00 Test Item Value Reference Range Interpretation Comments LIPASE (test code = 60A) 58 IU/L 12-53 H DRUGS OF [id number] 21:55:00 Test Item Value Reference Range Interpretation Comments DRUG SCRN (test code URINE DRUG SCREEN = HDOA) This is an unconfirmed screening result and should not be used for non-medical purposes CANNABINOD (test code NEGATIVE NEGATIVE = 88C) AMPHETAMINE (test NEGATIVE NEGATIVE code = 84A) BENZODIAZP (test code NEGATIVE NEGATIVE = 86A) BARBITURAT (test code NEGATIVE NEGATIVE = 85A) OPIATES (test code = POSITIVE NEGATIVE A 92B) COCAINE (test code = NEGATIVE NEGATIVE 87A) PHENCYCLID (test code NEGATIVE NEGATIVE = 66A) METHADONE (test code NEGATIVE NEGATIVE = 64A) DOAH (test code = DOAH.) *URINE DRUGSCREEN Cut-off values are as follows: Cannabinoids 50 ng/mL Cocaine 300 ng/mL Amphetamines 1000 ng/mL Phencyclidine 25 ng/mL Benzodiazepines 200 ng.mL Methadone 300 ng/mL Barbiturates 200 ng/mL Opiates 300 ng/mL TROPONIN [id number] 21:54:00 Test Item Value Reference Range Interpretation Comments TROPONIN I (test code <2.50 pg/mL 0.00-45.20 = A84) Ref Range Change (test Please note the code = REF RANGE) change in reference range SERUM [id number] 21:48:00 Test Item Value Reference Range Interpretation Comments PREG SRM (test code = PGS) NEGATIVE NEGATIVE [id number] 21:42:00 Test Item Value Reference Range Interpretation Comments COLOR (test code = COLU) Yellow YELLOW CLARITY (test code = CLA) Clear CLEAR GLUCOSE UR (test code = UA Negative NEGATIVE GLUCOSE) BILI UR (test code = BILE) Negative NEGATIVE KETONES UR (test code = MADELEINE) Negative NEGATIVE SP GRAVITY (test code = SPGR) 1.020 1.005-1.030 PH UR (test code = PH) 5.5 4.5-8.0 PROTEIN UR (test code = PU) Negative NEGATIVE UROBIL UR (test code = UROQ) 0.2 EU/dL 0.2-1.0 NITRITE UR (test code = NITRITE) Negative NEGATIVE BLOOD UR (test code = UA BLOOD) Trace-intact NEGATIVE LEUK ES UR (test code = LEUK) Negative NEGATIVE CBC (INCLUDES AUTOMATED DIFFERENTIAL)2020-12-28 21:41:00 Test Item Value Reference Range Interpretation Comments WBC (test code = WBC) 13.4 10\S\3/uL 4.5-11.0 H RBC (test code = RBC) 4.31 10\S\6/uL 4.20-5.60 HGB (test code = HBG) 13.3 g/dL 12.0-15.5 HCT (test code = HCT) 40.0 % 35.0-44.0 MCV (test code = MCV) 92.8 fL 81.0-99.0 MCH (test code = MCH) 30.9 pg 27.0-31.0 MCHC (test code = MCHC) 33.3 g/dL 32.0-36.0 RDW (test code = RDW) 13.5 % 11.5-14.5 PLT (test code = PLT) 277 10\S\3/uL 130-400 MPV (test code = MPV) 11.7 fL 9.4-12.4 NEUTROP # (test code = NE#) 7.7 10\S\3/uL 1.6-8.0 LYMPH # (test code = LY#) 4.0 10\S\3/uL 1.1-3.5 H MONOCYTE # (test code = MO#) 1.2 10\S\3/uL 0.0-1.1 H EOSINOPH # (test code = EO#) 0.3 10\S\3/uL 0.0-0.7 BASOPHIL # (test code = BA#) 0.1 10\S\3/uL 0.0-0.3 IG # (test code = IG#) 0.14 10\S\3/uL 0.00-0.06 H NRBC # (test code = NRBC#) 0.00 10\S\3/uL 0.00-0.01 NEUTROPH % (test code = NE%) 57.1 % 35.0-73.0 LYMPH % (test code = LY%) 30.1 % 20.0-55.0 MONO % (test code = MO%) 8.9 % 2.5-10.0 EOSINOPH % (test code = EO%) 2.5 % 0.0-5.0 BASOPHIL % (test code = BA%) 0.4 % 0.0-2.0 IG % (test code = IG%) 1.0 % 0.0-0.8 H NRBC% (test code = NRBC%) 0.0 % 0.0-0.2 MANDIFF (test code = MDIFF) NO RBC MORPH (test code = RBCMOR) NORMAL OCCULT [id number] 22:22:00 Test Item Value Reference Range Interpretation Comments Direct Exam (test code NEGATIVE FOR OCCULT = DE3) BLOOD CT ABDOMEN AND PELVIS WITH CONTRAST*WW*2020-09-29 21:56:04 [facility]USH DOB: 1975 Sex: FExam: CT abdomen and pelvis with contrast.Location: H 12History: Abdominal painCOMPARISON: 08/01/2020Technique: Enhanced spiral slices were taken from the domes of the diaphragm, through the pubic symphysis. Coronal reformations were performed. One or more of the following dose reduction techniques were used: Automated exposure control, adjustment of the mA and/or kV according to patient size, and/or utilization of iterative reconstruction technique.Findings:The liver is diffusely of decreased attenuation consistent fatty infiltration. No mass is seen. The intra-and extrahepatic biliary tree is normal. The hepatic and portal veins are patent. The gallbladder has been removed The pancreas is normal. The pancreatic duct is normal in caliber. The spleen and adrenal glands are normal in size and shape.The kidneys are unremarkable. No perinephric fluid collections or hydronephrosis is seen.The large and small intestine are normal in caliber. The appendix is normal. No inflammatory change is identified.No lymphadenopathy is found in the abdomen or the pelvis. No free fluid is seen.The uterus has been removed. The pelvic structures are otherwise unremarkable.The lung bases are clear.No incidental findings are noted.Impression:1. No intra-abdominal findings.2. Fatty liver.3. Status post cholecystectomy.4. Status post hysterectomy.Electronically signed by: Bhargav Jacques MD 09/29/2020 9:56 PM CDT [id number] METABOLIC LION *WW*2020-09-29 21:13:00 Test Item Value Reference Range Interpretation Comments GLUCOSE (test code 101 mg/dL 75-100 H = 06D) SODIUM (test code 136 mmol/L 136-145 = 01A) POTASSIUM (test 3.8 mmol/L 3.6-5.1 code = 01B) CHLORIDE (test 104 mmol/L 98-107 code = 04A) CO2 (test code = 24 mmol/L 22-32 02A) ANION GAP (test 11.8 mmol/L code = ANG) BUN (test code = 7 mg/dL 7-18 05D) CREATININE (test 0.9 mg/dL 0.4-1.1 code = 03E) GFR (test code = 75 See_Comment L [Automated GFR) mL/min/1.73m\S\2 message] Th e system which generated this result transmit evin reference range : >=90. The reference range was not used to interpret this result as normal/abnormal . GFR 87 See_Comment L [Automated ZAMBIAN (test mL/min/1.73m\S\2 message] The code = GFRAA) system which generated this result transmit evin reference range : >=90. The reference range was not used to interpret this result as normal/abnormal . EGFR (test code = eGFR BY EGFR) CKD-EPI CALCULATION IS NOT RECOMMENDED FOR PATIENTS UNDER 18 YEARS OF AGE. BUN/CREA (test 8 12-20 L code = BCR) CALCIUM (test code 8.8 mg/dL 8.3-9.5 = 09D) BILI TOTAL (test 0.4 mg/dL 0.2-1.0 code = 11A) PROTEIN (test code 8.2 g/dL 6.4-8.2 = 07D) ALBUMIN (test code 3.6 g/dL 3.5-4.8 = 08D) GLOBULIN (test 4.6 g/dL 1.5-3.8 H code = GLB) ALB/GLOB (test 0.8 1.0-2.6 L code = AGRR) ALK PHOS (test 102 IU/L 42-121 code = 35A) AST (test code = 118 IU/L See_Comment H [Automated 30A) message] The system which generated this result transmit evin reference range : <=42. The reference range was not used to interpret this result as normal/abnormal . ALT (test code = 114 IU/L See_Comment H [Automated 31A) message] The system which generated this result transmit evin reference range : <=78. The reference range was not used to interpret this result as normal/abnormal . LIPASE SERUM WW2020-09-29 21:13:00 Test Item Value Reference Range Interpretation Comments LIPASE (test code = 60A) 105 IU/L 73-393 URINALYSIS WITH MICRO *WW*2020-09-29 20:48:00 Test Item Value Reference Range Interpretation Comments COLOR (test code = COLU) Yellow YELLOW CLARITY (test code = CLA) SLT HAZY CLEAR A GLUCOSE UR (test code = UA GLUCOSE) Negative NEGATIVE BILI UR (test code = BILE) Negative NEGATIVE KETONES UR (test code = MADELEINE) Negative NEGATIVE SP GRAVITY (test code = SPGR) 1.010 1.005-1.030 PH UR (test code = PH) 6.0 4.5-8.0 PROTEIN UR (test code = PU) Negative NEGATIVE UROBIL UR (test code = UROQ) 0.2 EU/dL 0.2-1.0 NITRITE UR (test code = NITRITE) Negative NEGATIVE BLOOD UR (test code = UA BLOOD) 1+ NEGATIVE A LEUK ES UR (test code = LEUK) Negative NEGATIVE WBC UR (test code = UWBC) 1 /HPF 0-5 RBC UR (test code = URBC) 4 /HPF 0-2 H EPITH UR (test code = UEPC) FEW /LPF FEW BACTERIA UR (test code = UBACT) FEW /HPF NONE A CAST UR (test code = CAST) /LPF NONE CRYSTAL UR (test code = CRYU) / LPF NONE MUCUS UR (test code = MUC) / HPF NONE AMORPH UR (test code = SYDNI) / HPF NONE TRICH UR (test code = UTRICH) /HPF NONE YEAST UR (test code = UY) /HPF NONE SPERM UR (test code = USPERM) /HPF NONE URINE MONOCLONAL 2020-09-29 20:45:00 Test Item Value Reference Range Interpretation Comments PREG UR (test code = PGU) NEGATIVE NEGATIVE CBC (INCLUDES AUTOMATED DIFFERENTIAL)*[id number] 20:42:00 Test Item Value Reference Range Interpretation Comments WBC (test code = WBC) 14.0 10\S\3/uL 4.5-11.0 H RBC (test code = RBC) 4.28 10\S\6/uL 4.20-5.60 HGB (test code = HBG) 13.2 g/dL 12.0-15.5 HCT (test code = HCT) 39.0 % 35.0-44.0 MCV (test code = MCV) 91.1 fL 81.0-99.0 MCH (test code = MCH) 30.8 pg 27.0-31.0 MCHC (test code = MCHC) 33.8 g/dL 32.0-36.0 RDW (test code = RDW) 12.9 % 11.5-14.5 PLT (test code = PLT) 293 10\S\3/uL 130-400 MPV (test code = MPV) 11.5 fL 9.4-12.4 NEUTROP # (test code = NE#) 7.4 10\S\3/uL 1.6-8.0 LYMPH # (test code = LY#) 4.8 10\S\3/uL 1.1-3.5 H MONOCYTE # (test code = MO#) 1.3 10\S\3/uL 0.0-1.1 H EOSINOPH # (test code = EO#) 0.4 10\S\3/uL 0.0-0.7 BASOPHIL # (test code = BA#) 0.1 10\S\3/uL 0.0-0.3 IG # (test code = IG#) 0.09 10\S\3/uL 0.00-0.06 H NRBC # (test code = NRBC#) 0.00 10\S\3/uL 0.00-0.01 NEUTROPH % (test code = NE%) 52.7 % 35.0-73.0 LYMPH % (test code = LY%) 34.3 % 20.0-55.0 MONO % (test code = MO%) 9.3 % 2.5-10.0 EOSINOPH % (test code = EO%) 2.5 % 0.0-5.0 BASOPHIL % (test code = BA%) 0.6 % 0.0-2.0 IG % (test code = IG%) 0.6 % 0.0-0.8 NRBC% (test code = NRBC%) 0.0 % 0.0-0.2 MANDIFF (test code = WMDIFF) NO NO RBC MORPH (test code = NORMAL WRBCMOR) LIVER PROFILE WW2020-08-01 20:23:00 Test Item Value Reference Range Interpretation Comments BILI TOTAL (test code 0.3 mg/dL 0.2-1.0 = 11A) BILI DIRCT (test code 0.1 mg/dL 0.0-0.2 = 12A) BILI INDIR (test code 0.2 mg/dL See_Comment [Auto mated message] = BILII) The system [employer] generated this result transmitted ref erence range: <=0.8. T he reference range was not used to interpr et this result as normal/abnormal . PROTEIN (test code = 7.8 g/dL 6.4-8.2 07D) ALBUMIN (test code = 3.7 g/dL 3.5-4.8 08D) GLOBULIN (test code = 4.0 g/dL 1.5-3.8 H GLB) ALB/GLOB (test code = 0.9 1.0-2.6 L AGRR) ALK PHOS (test code = 117 IU/L 42-121 35A) AST (test code = 30A) 62 IU/L See_Comment H [Auto mated message] The system [employer] generated this result transmitted ref erence range: <=42. Th e reference range was not used to interpr et this result as normal/abnormal . ALT (test code = 31A) 66 IU/L See_Comment [Auto mated message] The system [employer] generated this result transmitted ref erence range: <=78. Th e reference range was not used to interpr et this result as normal/abnormal . CARDIAC PROFILE 2020-08-01 20:15:00 Test Item Value Reference Range Interpretation Comments TROPONIN I (test code = A84) <0.015 ng/mL 0.000-0.045 AMYLASE AND LIPASE 2020-08-01 20:10:00 Test Item Value Reference Range Interpretation Comments AMYLASE (test code = 10A) 51 U/L 28-100 LIPASE (test code = 60A) 165 IU/L 73-393 BASIC METABOLIC PANEL 2020-08-01 20:07:00 Test Item Value Reference Range Interpretation Comments GLUCOSE (test code 101 mg/dL 75-100 H = 06D) SODIUM (test code 136 mmol/L 136-145 = 01A) POTASSIUM (test 3.6 mmol/L 3.6-5.1 code = 01B) CHLORIDE (test 102 mmol/L 98-107 code = 04A) CO2 (test code = 27 mmol/L 22-32 02A) ANION GAP (test 10.6 mmol/L code = ANG) BUN (test code = 7 mg/dL 7-18 05D) CREATININE (test 0.8 mg/dL 0.4-1.1 code = 03E) GFR (test code = 82 See_Comment L [Automated GFR) mL/min/1.73m\S\2 message] Th e system which generated this result transmit evin reference range : >=90. The reference range was not used to interpret this result as normal/abnormal . GFR 95 See_Comment [Automated ZAMBIAN (test mL/min/1.73m\S\2 message] The code = GFRAA) system which generated this result transmit evin reference range : >=90. The reference range was not used to interpret this result as normal/abnormal . EGFR (test code = eGFR BY EGFR) CKD-EPI CALCULATION IS NOT RECOMMENDED FOR PATIENTS UNDER 18 YEARS OF AGE. BUN/CREA (test 8 12-20 L code = BCR) CALCIUM (test code 9.2 mg/dL 8.3-9.5 = 09D) CBC (INCLUDES AUTOMATED DIFFERENTIAL)*[id number] 19:54:00 Test Item Value Reference Range Interpretation Comments WBC (test code = WBC) 14.0 10\S\3/uL 4.5-11.0 H RBC (test code = RBC) 4.06 10\S\6/uL 4.20-5.60 L HGB (test code = HBG) 12.2 g/dL 12.0-15.5 HCT (test code = HCT) 36.7 % 35.0-44.0 MCV (test code = MCV) 90.4 fL 81.0-99.0 MCH (test code = MCH) 30.0 pg 27.0-31.0 MCHC (test code = MCHC) 33.2 g/dL 32.0-36.0 RDW (test code = RDW) 13.0 % 11.5-14.5 PLT (test code = PLT) 247 10\S\3/uL 130-400 MPV (test code = MPV) 11.3 fL 9.4-12.4 NEUTROP # (test code = NE#) 7.3 10\S\3/uL 1.6-8.0 LYMPH # (test code = LY#) 5.1 10\S\3/uL 1.1-3.5 H MONOCYTE # (test code = MO#) 1.2 10\S\3/uL 0.0-1.1 H EOSINOPH # (test code = EO#) 0.3 10\S\3/uL 0.0-0.7 BASOPHIL # (test code = BA#) 0.1 10\S\3/uL 0.0-0.3 IG # (test code = IG#) 0.07 10\S\3/uL 0.00-0.06 H NRBC # (test code = NRBC#) 0.00 10\S\3/uL 0.00-0.01 NEUTROPH % (test code = NE%) 52.5 % 35.0-73.0 LYMPH % (test code = LY%) 36.1 % 20.0-55.0 MONO % (test code = MO%) 8.2 % 2.5-10.0 EOSINOPH % (test code = EO%) 2.1 % 0.0-5.0 BASOPHIL % (test code = BA%) 0.6 % 0.0-2.0 IG % (test code = IG%) 0.5 % 0.0-0.8 NRBC% (test code = NRBC%) 0.0 % 0.0-0.2 MANDIFF (test code = WMDIFF) NO NO RBC MORPH (test code = NORMAL WRBCMOR) CT ABDOMEN AND PELVIS WITHOUT CONTRAST *WW*2020-08-01 19:51:[address] [facility] [place] CENTERName: OGRDON BUSH : 1975 Sex: FCT abdomen and pelvis with contrastLocation Code: [id number] HISTORY: Epigastric painCOMPARISON: NoneTechnique: Helical CT of the abdomen and pelvis was performed following the administration of intravenous contrast. Thin section axial and coronal images were obtained. Total DLP: mGycmFINDINGS:The lung bases are clear. The liver is enlarged measuring 20.4 cm and is low in attenuation. Prior cholecystectomy.The adrenal glands, kidneys, pancreas, and spleen are unremarkable.The unopacified loops of bowel demonstrate no focal thickening or dilatation. The appendix is visualized and is normal. There is no free peritoneal air or fluid. The abdominal aorta is normal in caliber and contour. There is no retroperitoneal mass or fluid collection. The urinary bladder is collapsed and not well evaluated.. There is no pelvic mass or fluid collection.The bones, skin, and surrounding soft tissues are unre markable.IMPRESSION: 1. No acute findings.2. Hepatomegaly and hepatic steatosis.Electronically signed by: Ibrahima Kaur MD 08/01/2020 7:51 PM CDT [id number] WITH MICRO *WW*2020-08-01 19:49:00 Test Item Value Reference Range Interpretation Comments COLOR (test code = COLU) YELLOW YELLOW CLARITY (test code = CLA) SLT HAZY CLEAR A GLUCOSE UR (test code = UA NEGATIVE NEGATIVE GLUCOSE) BILI UR (test code = BILE) NEGATIVE NEGATIVE KETONES UR (test code = MADELEINE) TRACE NEGATIVE A SP GRAVITY (test code = SPGR) 1.025 1.005-1.030 PH UR (test code = PH) 6.0 4.5-8.0 PROTEIN UR (test code = PU) NEGATIVE NEGATIVE UROBIL UR (test code = UROQ) 0.2 EU/dL 0.2-1.0 NITRITE UR (test code = NITRITE) NEGATIVE NEGATIVE BLOOD UR (test code = UA BLOOD) TRACE-INTACT NEGATIVE A LEUK ES UR (test code = LEUK) NEGATIVE NEGATIVE WBC UR (test code = UWBC) 1 /HPF 0-5 RBC UR (test code = URBC) 4 /HPF 0-2 H EPITH UR (test code = UEPC) FEW /LPF FEW BACTERIA UR (test code = UBACT) FEW /HPF NONE A CAST UR (test code = CAST) /LPF NONE CRYSTAL UR (test code = CRYU) / LPF NONE MUCUS UR (test code = MUC) / HPF NONE AMORPH UR (test code = SYDNI) / HPF NONE TRICH UR (test code = UTRICH) /HPF NONE YEAST UR (test code = UY) FEW /HPF NONE A SPERM UR (test code = USPERM) /HPF NONE
[2021-07-03 15:05] LABS: Urine Blood Trace-intact (Negative); Urine Glucose Negative (Negative); Urine Protein Negative (Negative); Urine Specific Gravity 1.015 (1.005-1.030); Urine pH 6.5 (5.0-7.0)
[2021-07-03 15:14] LABS: Absolute Lymphocytes (CBC) 3.4 K/uL (0.7-4.9); Hematocrit 40.8 % (36.0-45.0); Lymphocytes % 37.7 % (15.3-44.8); MPV 8.7 fL (7.6-11.3); RBC Red Blood Cell Count 4.54 M/uL (3.86-4.86)
[2021-07-03 15:19] LABS: Urine Bacteria 20-50 /HPF (<20); Urine RBC <5 /HPF (NONE SEEN)
[2021-07-03] MEDS ORDERED: KETOROLAC 30 MG/ML INJ ONE (15:19)
[2021-07-03] MEDS ORDERED: ONDANSETRON 4 MG/2 ML VIAL ONE (15:19)
[2021-07-03 15:31] LABS: Albumin 3.7 g/dL (3.4-5.0); Bilirubin Total 0.5 mg/dL (0.2-1.0); Potassium 3.3 mmol/L (3.5-5.1); Protein, Total 8.4 g/dL (6.4-8.2)
[2021-07-03] MEDS ORDERED: KETAMINE HCL 500 MG/5 ML VIAL ONE (16:24)
[2021-07-03] MEDS ORDERED: NA CHLORIDE 0.9% 100 ML IV ONE (16:24)
--- NOTE | 2021-07-03 17:05 | RAD REPORT ---
EXAM DESCRIPTION: CTAbdomen Pelvis W Contrast - 07/03/2021 4:54 pm CLINICAL HISTORY: abdominal pain. Hx of Endometrisois. S/P Hysterectomy COMPARISON: Abdomen Pelvis W Contrast dated 06/08/2021; Abdomen Pelvis W Contrast dated 11/20/2020 ; Abdomen Pelvis W Contrast dated 08/16/2020; Abdomen Pelvis W Contrast dated 08/13/2020 TECHNIQUE: CT of the abdomen and pelvis was performed. All CT scans are performed using dose optimization technique as appropriate and may include automated exposure control or mA/KV adjustment according to patient size. FINDINGS: Lower chest: No acute abnormality. Liver: Hepatic steatosis. Biliary: Similar mild extrahepatic biliary ductal dilatation. Cholecystectomy. Stomach: No significant focal abnormality. Duodenum: No significant focal abnormality. Pancreas: Diffuse low-attenuation of the pancreas may reflect fatty infiltration. Spleen: No significant abnormality. Adrenal: No suspicious lesions. Kidney/ureter: No hydronephrosis. No renal calculi. Retroperitoneum: No retroperitoneal adenopathy. Vascular: No aneurysm. Bowel: No significant focal abnormality. Normal appendix. Peritoneum: No ascites or free air. Bladder: Grossly unremarkable. Reproductive: No adnexal masses. Hysterectomy Bones: No acute fracture. Other: n/a IMPRESSION: No acute intra-abdominal or pelvic finding. Incidental findings as noted above.
--- NOTE | 2021-07-03 17:10 | EDPHYS ---
Physician Documentation [facility] Name: Misa Tony Age: 45 yrs Sex: Female : 1975 Arrival Date: 07/03/2021 Time: 11:08 Bed 25 Private MD: ED Physician Lloyd Espinal HPI: 07/03 13:19 This 45 yrs old Female presents to ER via Ambulatory with complaints of Abdominal Pain. ms3 13:19 The patient presents with abdominal pain that is diffuse. Onset: The symptoms/episode ms3 began/occurred 10 day(s) ago. The symptoms do not radiate. Associated signs and symptoms: Pertinent positives: nausea and vomiting, Pertinent negatives: diarrhea, fever. The symptoms are described as stabbing. Modifying factors: The symptoms are alleviated by nothing, the symptoms are aggravated by nothing. Severity of pain: At its worst the pain was severe a 10 / 10 in the emergency department the pain is unchanged. Historical: - Allergies: 12:40 Morphine; ap3 - Home Meds: 12:40 lisinopril-hydrochlorothiazide Oral [Active]; Protonix Oral [Active]; ap3 - PMHx: 12:40 Bipolar disorder; blood clot in Axilla; Endometrosis; gastritis; GERD; Hypertension; ap3 Pancreatitis; - PSHx: 12:40 Cholecystectomy; hysterectomy; ap3 - Immunization history:: Client reports receiving the 2nd dose of the Covid vaccine, Flu vaccine is up to date. - Social history:: Smoking status: Patient denies any tobacco usage or history of. ROS: 13:19 Constitutional: Negative for fever, and chills. Neck: Negative for injury, pain, and ms3 swelling, Cardiovascular: Negative for chest pain, and palpitations. Respiratory: Negative for shortness of breath, cough, wheezing, and pleuritic chest pain, Skin: Negative for injury, rash, and discoloration, Psych: Negative for depression, anxiety, suicide ideation, homicidal ideation, and hallucinations. 13:19 Abdomen/GI: Positive for abdominal pain, nausea and vomiting. Exam: 13:19 Constitutional: This is a well developed, well nourished patient who is awake, alert, ms3 and in no acute distress. Head/Face: Normocephalic, atraumatic. Chest/axilla: Normal chest wall appearance and motion. Nontender with no deformity. Cardiovascular: Regular rate and rhythm with a normal S1 and S2. No gallops, murmurs, or rubs. Normal PMI, no JVD. No pulse deficits. Respiratory: Lungs have equal breath sounds bilaterally, clear to auscultation and percussion. No rales, rhonchi or wheezes noted. No increased work of breathing, no retractions or nasal flaring. Skin: Warm, dry with normal turgor. Normal color with no rashes, no lesions, and no evidence of cellulitis. Psych: Awake, alert, with orientation to person, place and time. Behavior, mood, and affect are within normal limits. 13:19 Abdomen/GI: Inspection: abdomen appears normal, Bowel sounds: normal, Palpation: moderate abdominal tenderness, in all quadrants. Vital Signs: 12:37 BP 118 / 82; Pulse 104; Resp 17; Temp 97.9(TE); Pulse Ox 99% on R/A; Weight 97.52 kg; ap3 Height 5 ft. 5 in. (165.10 cm); Pain 10/10; 16:00 BP 120 / 81; Pulse 80; Resp 18; Pulse Ox 100% on R/A; ld1 12:37 Body Mass Index 35.78 (97.52 kg, 165.10 cm) ap3 MDM: 13:19 Differential diagnosis: bowel obstruction, Endometriosis, non-specific abd pain. ms3 14:46 Patient medically screened. ms3 17:10 Data reviewed: vital signs, nurses notes, lab test result(s), radiologic studies, CT ms3 scan. Data interpreted: Pulse oximetry: on room air is 100 %. Interpretation: normal. 17:14 Counseling: I had a detailed discussion with the patient and/or guardian regarding: the ms3 historical points, exam findings, and any diagnostic results supporting the discharge/admit diagnosis, lab results, radiology results, the need for outpatient follow up, to return to the emergency department if symptoms worsen or persist or if there are any questions or concerns that arise at home. ED course: Discussed labs, CT, physical exam findings with patient. Patient to follow-up with gynecology in 2-3 days. Patient understands and agrees with plan. All questions were answered. Return precautions discussed include worsening symptoms, or any other concerns. On reevaluation patient is alert and oriented x4, in no apparent distress, nontoxic-appearing, speaking full sentences, ambulatory in emergency department.. 07/03 14:51 Order name: CBC with Diff; Complete Time: 17:02 [facility] 07/03 14:51 Order name: CMP; Complete Time: 17:02 [facility] 07/03 14:51 Order name: Lipase; Complete Time: 17:02 [facility] 07/03 14:51 Order name: Urine Microscopic Only; Complete Time: 17:02 [facility] 07/03 15:06 Order name: Urine Dipstick-Ancillary; Complete Time: 17:02 [facility] 07/03 15:22 Order name: Urine Culture [facility] 07/03 14:51 Order name: IV Saline Lock; Complete Time: 15:13 07/03 14:51 Order name: Labs collected and sent; Complete Time: 15:13 [facility] 07/03 14:51 Order name: Urine Dipstick-Ancillary (obtain specimen); Complete Time: 15:13 [facility] 07/03 14:51 Order name: Urine Test (obtain specimen); Complete Time: 15:13 07/03 15:23 Order name: CT Abd/Pelvis - IV Contrast Only; Complete Time: 17:07 ms3 Administered Medications: 15:17 Drug: Ketorolac 15 mg Route: IVP; Site: left antecubital; ld1 15:17 Drug: Zofran (Ondansetron) 4 mg Route: IVP; Site: left antecubital; ld1 16:25 Drug: Ketamine 10 mg Route: IVP; Site: left antecubital; ld1 16:25 Follow up: Response: No adverse reaction ld1 Disposition Summary: 07/03/21 17:09 Discharge Ordered Location: Home ms3 Condition: Stable ms3 Diagnosis - Abdominal pain, Generalized ms3 Followup: ms3 - With: Nilsa Dwyer MD - When: 2 - 3 days - Reason: Recheck today's complaints Discharge Instructions: - Discharge Summary Sheet ms3 - Abdominal Pain, Adult ms3 - Endometriosis ms3 Forms: - Medication Reconciliation Form ms3 - Thank You Letter ms3 - Antibiotic Education ms3 - Prescription Opioid Use ms3 Prescriptions: - Ibuprofen 600 mg Oral Tablet - take 1 tablet by ORAL route every 6 hours As needed take with food; 30 tablet; ms3 Refills: 0, Product Selection Permitted Signatures: Dispatcher [employer] Anjali Norman, RN RN ap3 Lloyd Espinal DO DO ms3 Juana Razo, RN RN ld1
--- NOTE | 2021-07-03 17:10 | ER ---
Nurse's Notes [facility] Name: Misa Tony Age: 45 yrs Sex: Female : 1975 Arrival Date: 07/03/2021 Time: 11:08 Bed 25 Private MD: Diagnosis: Abdominal pain, Generalized Presentation: 07/03 12:37 Chief complaint: Patient states: patient complains of mid upper abdominal pain, and ap3 reports the pain at a 10/10 at this time. Patient reports associated Nausea and vomiting. Coronavirus screen: At this time, the client does not indicate any symptoms associated with coronavirus-19. Ebola Screen: No symptoms or risks identified at this time. Initial Sepsis Screen: Does the patient meet any 2 criteria? No. Patient's initial sepsis screen is negative. Does the patient have a suspected source of infection? No. Patient's initial sepsis screen is negative. Risk Assessment: Do you want to hurt yourself or someone else? Patient reports no desire to harm self or others. Onset of symptoms was June 23, 2021. 12:37 Method Of Arrival: Ambulatory ap3 12:37 Acuity: ELADIO 3 ap3 Triage Assessment: 12:40 General: Appears uncomfortable, Behavior is cooperative, anxious. Pain: Complains of ap3 pain in abdomen. Neuro: Level of Consciousness is awake, alert, obeys commands, Oriented to person, place, time, situation, Moves all extremities. Gait is steady, Speech is normal. Cardiovascular: Patient's skin is warm and dry. Respiratory: Airway is patent Respiratory effort is even, unlabored. GI: Reports nausea, vomiting. Historical: - Allergies: 12:40 Morphine; ap3 - Home Meds: 12:40 lisinopril-hydrochlorothiazide Oral [Active]; Protonix Oral [Active]; ap3 - PMHx: 12:40 Bipolar disorder; blood clot in Axilla; Endometrosis; gastritis; GERD; Hypertension; ap3 Pancreatitis; - PSHx: 12:40 Cholecystectomy; hysterectomy; ap3 - Immunization history:: Client reports receiving the 2nd dose of the Covid vaccine, Flu vaccine is up to date. - Social history:: Smoking status: Patient denies any tobacco usage or history of. Screenin:41 Abuse screen: Denies threats or abuse. Nutritional screening: No deficits noted. ap3 Tuberculosis screening: No symptoms or risk factors identified. 17:21 Fall Risk None identified. ld1 Assessment: 16:00 General: Appears in no apparent distress. comfortable, Behavior is calm, cooperative, ld1 appropriate for age. Pain: Complains of pain in abdomen Pain does not radiate. Pain currently is 8 out of 10 on a pain scale. Quality of pain is described as sharp, shooting, throbbing, Pain began gradually. 16:00 Neuro: Level of Consciousness is awake, alert, obeys commands, Oriented to person, ld1 place, time, situation. Cardiovascular: Capillary refill < 3 seconds Patient's skin is warm and dry. Rhythm is regular. Respiratory: Airway is patent Respiratory effort is even, unlabored. GI: Abdomen is round non-distended, Bowel sounds present X 4 quads. Abd is soft Abdomen is tender to palpation X 4 quads. GI: Reports lower abdominal pain, upper abdominal pain, nausea. : No signs and/or symptoms were reported regarding the genitourinary system. EENT: No signs and/or symptoms were reported regarding the EENT system. Derm: No signs and/or symptoms reported regarding the dermatologic system. Musculoskeletal: No signs and/or symptoms reported regarding the musculoskeletal system. Vital Signs: 12:37 BP 118 / 82; Pulse 104; Resp 17; Temp 97.9(TE); Pulse Ox 99% on R/A; Weight 97.52 kg; ap3 Height 5 ft. 5 in. (165.10 cm); Pain 10/10; 16:00 BP 120 / 81; Pulse 80; Resp 18; Pulse Ox 100% on R/A; ld1 12:37 Body Mass Index 35.78 (97.52 kg, 165.10 cm) ap3 ED Course: 11:08 Patient arrived in ED. as 11:33 Lloyd Espinal DO is Attending Physician. ms3 12:40 Triage completed. ap3 12:41 Arm band placed on right wrist. ap3 14:48 Juana Razo, VINOD is Primary Nurse. ld1 16:57 CT Abd/Pelvis - IV Contrast Only In Process Unspecified. EDMS 17:09 Nilsa Dwyer MD is Referral Physician. ms3 17:21 No provider procedures requiring assistance completed. IV discontinued, intact, ld1 bleeding controlled, No redness/swelling at site. Administered Medications: 15:17 Drug: Ketorolac 15 mg Route: IVP; Site: left antecubital; ld1 15:17 Drug: Zofran (Ondansetron) 4 mg Route: IVP; Site: left antecubital; ld1 16:25 Drug: Ketamine 10 mg Route: IVP; Site: left antecubital; ld1 16:25 Follow up: Response: No adverse reaction ld1 Medication: 12:41 VIS not applicable for this client. ap3 Outcome: 17:09 Discharge ordered by MD. ms3 17:21 Discharged to home ambulatory, with family. ld1 17:21 Condition: stable 17:21 Discharge instructions given to patient, family, Instructed on discharge instructions, follow up and referral plans. medication usage, Demonstrated understanding of instructions, follow-up care, medications, Prescriptions given X 1. 17:21 Patient left the ED. ld1 Signatures: Dispatcher [employer] EDMS Shital Martinez Amanda, RN RN ap3 Lloyd Espinal DO DO ms3 Juana Razo RN RN ld1
[2021-07-03 17:27] VITALS: TEMP 97.9
[2021-07-03 17:29] VITALS: BP 120/81; O2SAT 100
== END 2021-07-03 17:21 | disposition home or self-care (01) ==
LOC: ER 11:07
DX: R10.84 Generalized abdominal pain (principal); R11.2 Nausea with vomiting, unspecified; I10 Essential (primary) hypertension; F31.9 Bipolar disorder, unspecified; Z88.5 Allergy status to narcotic agent
CPT/HCPCS: 36415; 74177; 80053; 81003; 81015; 83690; 85025; 87086; 87088; 96374; 96375; 99283; J2405; Q9967

== ENCOUNTER 2021-07-15 18:13 | Emergency (ER) | payer SELFPAY ==
--- OUTSIDE RECORDS SUMMARY | 2021-07-15 18:18 | XMS REPORT | Continuity of Care Document ---
:1975 Author Organization [facility] t Address [address] [place] [address] Care Team Providers Name Role Phone MS RAINER Primary Care Physician Unavailable Rainer Attending Clinician Unavailable Mahnaz Attending Clinician Unavailable Tamiko ALVAREZ Attending Clinician Unavailable FANNY ALFONSO Attending Clinician Unavailable DR BILL Attending Clinician Unavailable Santa ALFONSO Attending Clinician Unavailable DR Marycarmen VINES Attending Clinician Unavailable DR KING Attending Clinician Unavailable DR Alvina ISLAS Attending Clinician Unavailable DR KADEN Attending Clinician Unavailable Kim MARK C Attending Clinician Only, Test Attending Clinician Unavailable Doctor Unassigned, Name Attending Clinician Unavailable LINKVA Attending Clinician Unavailable SWATI Attending Clinician Unavailable GAVIOTA POLLARD Attending Clinician Unavailable RADIOLOGY Attending Clinician Unavailable Tamiko ALVAREZ Admitting Clinician Unavailable DR BILL Admitting Clinician Unavailable Santa ALFONSO Admitting Clinician Unavailable DR Marycarmen VINES Admitting Clinician Unavailable DR KING Admitting Clinician Unavailable DR Alvina ISLAS Admitting Clinician Unavailable DR KADEN Admitting Clinician Unavailable Tamiko Alvarez MD Admitting Clinician CINDY Admitting Clinician Unavailable GAVIOTA POLLARD Admitting Clinician Unavailable Payers Payer Name Policy Type Policy Number Effective Date Expiration Date Dagoberto espinoza [facility] [id number] 2017 00:00:00 SELECT 1000 [id number] 2021 00:00:00 Problems Condition Condition Condition Status Onset Resolution Last Treating Co mments Source Name Details Category Date Date Treatment Clinician Date Abdominal Abdominal Disease Active 2016-02 Overview: Univers pain, pain, 1-15 Formattin ity of epigastric epigastric 00:00: g of this [place] 00 note Medical might be Branch different from the original. Added automatic ally from request for surgery [id number] History of History of Disease Active 2016-02 Overview : Univers pancreatit pancreatit 1-15 Formattin ity of is is 00:00: g of this [place] 00 note Medical might be Branch different from the original. Added automatic ally from request for surgery [id number] Elevated Elevated Disease Active 2016-02 Overview: Un dejon LFTs LFTs 1-15 Formattin ity of 00:00: g of this [place] note Medical might be Branch different from the original. Added automatic ally from request for surgery [id number] Nausea and Nausea and Disease Active 2016-02 Overview : Univers vomiting, vomiting, 1-15 Formattin i ty of intractabi intractabi 00:00: g of this [place] lity of lity of 00 note Medical vomiting vomiting might be Bran ch not not different specified, specified, from the unspecifie unspecifie original. d vomiting d vomiting Added type type automatic ally from request for surgery [id number] Encounter Encounter Disease Active Uni vers for other for other 5-16 [place] 00 Medical management management Br anch History of History of Disease Active U nivers hysterecto hysterecto -16 it y of my my 00:00: [place] 00 Medical Branch Generalize Generalize Disease Active U nivers d anxiety d anxiety 5-16 ity of disorder disorder 00:00: [place] 00 Medical Branch Depression Depression Disease Active U nivers , , 07-01 ity of unspecifie [place]specifie [place] Medical depression depression Br anch type type Obesity, Obesity, Disease Active Unive rs unspecifie unspecifie 16 it y of d d 00:00: [place] 00 Medical Branch Allergies, Adverse Reactions, Alerts Allergy Allergy Status Severity Reaction(s) Onset Inactive Treating Comm ents Source Name Type Date Date Clinician MORPHINE DRUG Active Rash Univers INGREDI 04-29 ity of 00:00: [place] 00 Medical Branch Morphine Propensi Active Rash Univer s ty to 04-29 ity of adverse 00:00: [place] reaction 00 Medical s Branch MORPHINE Adverse Active rash Common Reaction [facility] Morphine DA Active Unknown [facility] Social History Social Habit Start Date Stop Date Quantity Comments Source Exposure to Not sure [facility] SARS-CoV-2 [facility] (event) Branch Tobacco use and 2017-01-29 2017-01-29 Never used Universit y of exposure 00:00:00 00:00:00 [facility] Alcohol intake 2017-01-29 2017-01-29 Current University of 00:00:00 00:00:00 non-drinker of [facility] alcohol Branch (finding) Sex Ass[birth year] Universit y of 00:00:00 00:00:00 [facility] Smoking Status Start Date Stop Date Source Never smoker [facility] Medications Ordered Filled Start Stop Current [...] daily. Medical per tablet Branch FENTanyl PF Yes 25ug 25 mcg, Uni vers (SUBLIMAZE 8-04 Slow IV ity of (PF)) 16:19: Push, [place] injection 59 Q5MIN PRN, Medi sergio 25 mcg 4 doses, Branch Starting Thu09/19/20 at 1119, Until Discontinu ed, Routine, Pain (scale 4-6), PACU FENTanyl PF 2020- No 25ug 25 mcg, Un dejon (SUBLIMAZE 8- 08-04 Slow IV ity o f (PF)) 16:19: 18:59 Push, [place] injection 59 :11 Q5MIN PRN, Medi sergio 25 mcg 4 doses, Branch Starting Thu09/19/20 at 1119, Until Thu09/19/20 at 1359, Routine, Pain (scale 4-6), PACU lactated 2020- Yes 1000mL at 100 Unive rs ringers IV 8-04 mL/hr, ity of infusion 16:15: 1,000 mL, [place] 1[place]000 [place] 00 IV Medical Infusion, Branch CONTINUOUS , Starting Thu09/19/20 at 1115, Until Discontinu ed, Routine, PACU lactated 2020- No 1000mL at 100 Univ ers [...] Routine, Nausea and Vomiting (N/V), PACU ondansetron 2020- No 4mg 4 mg, Slow Univers (ZOFRAN 8-04 08-04 IV Push, ity of (PF)) 16:12: 18:59 PRN, 1 [place] injection 4 07 :11 dose, Medical mg Starting Branch Thu09/19/20 at 1112, Until 09/19/20 at 1359, Routine, Nausea and Vomiting (N/V), PACU simethicone Yes PRN, Univer s (GAS RELIEF 804 Starting ity of (SIMETHICON 15:55: 09/19/20 [place] E)) 40 00 at 1055, Medical mg/0.6 mL Until Branch drops Discontinu ed, Routine, Intra-op simethicone 2020- No PRN, Unive rs (GAS RELIEF 8 08-04 Starting ity of (SIMETHICON 15:55: 18:59 09/19/20 [place] E)) 40 00 :11 at 1055, Medical mg/0.6 mL Until Wed Branc h drops 09/19/20 at 1359, Routine, Intra-op lactated 2020- No 1000mL at [address] [facility], Txe rs ringers IV 8- 08-04 mL/hr, ity of infusion 14:30: 14:42 1,000 mL, Jakub as 1,000 mL 00 :00 IV Medical Infusion, Branch ONCE, 1 dose, 09/19/20 at 0930, Routine, Endo Pre-op lactated 2020- No 1000mL at [address] [facility], Txe rs ringers IV 8- 08-04 mL/hr, ity of infusion 14:30: 14:42 [...] [place] 00 daily. Medical Branch estradiol Yes [id number] .5mg Take 1 U nivers 0.5 mg 5-16 tablet by ity of tablet 00:00: mouth [place] 00 daily. Medical Branch estradiol Yes [id number] .5mg Take 1 U nivers 0.5 mg 5-16 tablet by ity of tablet 00:00: mouth [place] 00 daily. Medical Branch estradiol 2017-0 Yes [id number] .5mg Take 1 U nivers 0.5 mg 5-16 tablet by ity of tablet 00:00: mouth [place] 00 daily. Medical Branch estradiol 2017-0 Yes [id number] .5mg Take 1 U nivers 0.5 mg [...] ity of mg tablet 00:00: mouth 4 (four) Medical times Branch daily. proMETHazin 2015-02 [...] Protonix Yes Judy 1 tablet Co mmon Mahnaz [facility] Immunizations Ordered Filled Immunization Date Status Comments Sour e Immunization Name Name Influenza Virus 2016-12-08 Completed Universit y of Vaccine Quad IM 3+ 00:00:00 [facility] Influenza Virus 2016-12-08 Completed Universit y of Vaccine Quad IM 3+ 00:00:00 [facility] Influenza Virus 2016-12-08 Completed Universit y of Vaccine Quad IM 3+ 00:00:00 [facility] Influenza Virus 2016-12-08 Completed Universit y of Vaccine Quad IM 3+ 00:00:00 [facility] TDAP 2013-02-16 Completed University of 00:00:00 [facility] TDAP 2013-02-16 Completed University of 00:00:00 [facility] TDAP 2013-02-16 Completed University 00:00:00 [facility] TDAP 2013-02-16 Completed University of 00:00:00 [facility] Influenza Virus 2010-12-03 Completed Universit y of Vaccine (3+ yrs) 00:00:00 [facility] Influenza Virus 2010-12-03 Completed Universit y of Vaccine (3+ yrs) 00:00:00 [facility] Influenza Virus 2010-12-03 Completed Universit y of Vaccine (3+ yrs) 00:00:00 [facility] Influenza Virus 2010-12-03 Completed Universit y of Vaccine (3+ yrs) 00:00:00 [facility] Influenza Virus 2009-12-04 Completed Universit y of Vaccine (3+ yrs) 00:00:00 [facility] Influenza Virus 2009-12-04 Completed Universit y of Vaccine (3+ yrs) 00:00:00 [facility] Influenza Virus 2009-12-04 Completed Universit y of Vaccine (3+ yrs) 00:00:00 [facility] Influenza Virus 2009-12-04 Completed Universit y of Vaccine (3+ yrs) 00:00:00 [facility] Vital Signs Vital Name Observation Time Observation [...] 16:50:00 121 mm[Hg] Univer sity of pressure [facility] Branch Diastolic blood 2020-09-19 16:50:00 69 mm[Hg] Unive rsity of [facility] Heart rate 2020-09-19 16:50:00 68 /min [facility] Respiratory rate 2020-09-19 16:50:00 19 /min Univ ersity of [facility] Branch Oxygen saturation in 2020-09-19 16:50:00 96 /min University of Arterial blood by [employer] sergio Pulse oximetry Branch Body temperature 2020-09-19 16:08:00 36.78 [facility] height 2020-09-17 15:25:00 162.6 cm [facility] [place] Body weight 2020-09-17 15:25:00 74.8 kg [facility] Branch BMI 2020-09-17 15:25:00 28.29 kg/m2 [facility] Branch Systolic blood 2020-09-19 16:50:00 121 mm[Hg] Univer sity of [facility] Branch Diastolic blood 2020-09-19 16:50:00 69 mm[Hg] Unive rsity of pressure [facility] Branch Heart rate 2020-09-19 16:50:00 68 /min [facility] Respiratory rate 2020-09-19 16:50:00 19 /min Univ ersity of [facility] Branch Oxygen saturation in 2020-09-19 16:50:00 96 /min University of Arterial blood by [employer] sergio Pulse oximetry Branch Body temperature 2020-09-19 16:08:00 36.78 [facility] Body height 2020-09-17 15:25:00 162.6 cm [facility] Body weight 2020-09-17 15:25:00 74.8 kg [facility] BMI 2020-09-17 15:25:00 28.29 kg/m2 [facility] Height 2020-08-01 19:01:00 165.1 CM Weight 2020-08-01 19:01:00 93.6 KG Procedures Procedure Date / Time Performing Clinician Source Performed COLONOSCOPY (ENDO) 2020-09-19 15:47:32 Harsha Rivera [facility] COLONOSCOPY (ENDO) 2020-09-19 15:47:32 Harsha Rivera [facility] EGD (ENDO) 2020-09-19 15:32:51 Harsha Rivera [facility] EGD (ENDO) 2020-09-19 15:32:51 Harsha Rivera [facility] ESOPHAGOGASTRODUODENOSCOPY 2020-09-19 15:27:00 Lexii Alvarez [facility] COLONOSCOPY 2020-09-19 15:27:00 Eda Alvarez [facility] EXTERNAL PROVIDER RECORDS 2020-09-14 05:01:00 Doctor Unassigned, [facility] Name [facility] EXTERNAL PROVIDER RECORDS 2020-09-14 05:01:00 Doctor Unassigned, [facility] Name [facility] INSURANCE CORRESPONDENCE 2020-09-11 05:01:00 Doctor Amenassigned, [facility] Name [facility] Encounters Start End Encounter Admission Attending Care Care Encounter Source Date/Time Date/Time Type Type Clinicians Facility Department ID 2021-03-13 Outpatient CUATE Araujo [facility] [id number] Common 14:11:12 Aleta [id number] 2021-03-13 Outpatient CUATE Araujo [facility] [id number] Common 14:10:20 Aleta 22187 [facility] 2021-03-13 Outpatient CUATE Araujo [facility] [id number] Common 14:01:47 Aleta [id number] [facility] 2021-03-13 Outpatient Glendo, STLMLC STLMLC [id number] Common 13:41:05 Aleta [id number] [facility] 2021-03-13 Outpatient Glendo, STLMLC STLMLC [id number] Common 13:22:20 Aleta [id number] [facility] 2021-03-13 Outpatient Glendo, STLMLC STLMLC [id number] Common 13:01:46 Aleta [id number] [facility] 2021-03-13 Outpatient Glendo, STLMLC STLMLC [id number] Common 12:25:28 Aleta 10700 [facility] 2021-03-13 Outpatient Glendo, STLMLC STLMLC [id number] Common 12:22:12 Aleta [id number] [facility] 2021-03-13 Outpatient Glendo, STLMLC STLMLC [id number] Common 12:18:36 Aleta 51269 [facility] 2021-03-13 Outpatient Glendo, STLMLC STLMLC [id number] Common 12:11:37 Aleta 58105 [facility] 2021-03-13 Outpatient Millender, STLMLC STLMLC [id number] Common 11:10:58 Judy [id number] [facility] 2021-03-13 Outpatient Millender, STLMLC STLMLC [id number] Common 11:07:25 Judy [id number] [facility] 2020-12-17 Outpatient R [facility] AFSHAN [id number] Univers 12:05:12 EDA Rossi [facility] 2020-12-17 Outpatient R [facility] AUGUSTO [id number] Univers 10:24:27 EDA Rossi [facility] 2021-07-04 2021-07-04 Emergency E KATY ALFONSO [address] [id number] JANNET 10:28:00 15:00:00 ANG 2021-06-28 2021-06-28 Emergency E RNOALDO KHAN [facility] [id number] [place] 01:07:00 03:35:00 Medica l [place] 2021-06-26 2021-06-26 Emergency E KADEN [facility] [id number] [place] 18:17:00 22:30:00 ASTRID [facility]ica [facility] [place] 2021-05-28 2021-05-28 Emergency E JASMYN, [facility] ECC [id number] [place] 14:46:00 19:50:[facility] 2021-05-28 2021-05-28 ambulatory STLMLC STLMLC [id number] Common 00:00:00 00:00:00 [facility] 2021-05-14 2021-05-14 ambulatory STLMLC STLMLC [id number] Common 00:00:00 00:00:00 [facility] 2021-03-28 2021-03-28 Emergency E MALIK, [facility] [id number] [place] 19:49:00 22:44:00 [facility] [place] 2021-01-30 2021-01-30 ambulatory STLMLC STLMLC [id number] Common 00:00:00 00:00:00 [facility] 2021-01-17 2021-01-17 ambulatory STLMLC STLMLC [id number] Common 00:00:00 00:00:00 [facility] 2021-01-15 2021-01-15 Emergency E ROSHAN [facility] ECC [id number] [place] 14:05:00 17:57:00 [facility] 2021-01-07 2021-01-07 ambulatory STLMLC STLMLC [id number] Common 00:00:00 00:00:00 [facility] 2020-12-28 2020-12-28 Emergency E KADEN [facility] ECC [id number] [place] 20:33:00 23:42:00 ELIO [facility] 2020-12-27 2020-12-27 ambulatory STLMLC STLMLC [id number] Common 00:00:00 00:00:00 [facility] 2020-09-29 2020-09-29 Emergency E ROSHAN [facility] [id number] [place] 19:46:00 23:15:00 [facility] 2020-09-27 2020-09-27 Outpatient [facility] [id number] Common 00:00:00 00:00:00 [facility] 2020-09-19 2020-09-19 Surgery [facility] [id number] Univers 11:35:00 12:26:00 Eda rossi [id number] [place] [id number] [place] [id number] [facility] 020 Branch 2020-09-19 2020-09-19 [facility] [id number] Univers 09:21:00 11:55:00 Encounter Eda rossi [id number] [place] [id number] [id number] [facility] 071 Branch 2020-09-18 2020-09-18 Laboratory Only, Adc Test [facility] 1.2.840. [id number] Univers 12:44:53 12:59:53 Only Eda Alvarez 350.1.1 3.10 [place] 4.2.7.2.686 [place] [id number] [place] [address] Branch 2020-09-18 2020-09-18 Outpatient R [facility] [id number] Univers 09:15:00 09:15:00 [id number] ity of [facility] 2020-09-18 2020-09-18 Outpatient R [facility] [id number] Univers 09:15:00 09:15:00 EDA Rossi o f [facility] 2020-09-11 2020-09-11 Orders Doctor VALDOVINOS [id number] Univers 00:00:00 00:00:00 Only Unassigned, NORBERTO [id number] ity of [place] [facility] 4.2.7.2.686 Jakub as [id number] [address] 2020-09-10 2020-09-10 Outpatient R [facility] [id number] Univers 10:00:00 10:00:00 [id number] ity of [facility] 2020-09-10 2020-09-10 Outpatient R JOSE D [facility] [id number] Univers 10:00:00 10:00:00 EDA Rossi [facility] 2020-09-03 2020-09-03 Outpatient STLMLC STLMLC [id number] Common 00:00:00 00:00:00 [facility] 2020-08-21 2020-08-[address] [facility] [id number] [facility] 16:11:00 14:10:00 MILIND 2020-08-17 2020-08-17 Outpatient STLMLC STLMLC [id number] Common 00:00:00 00:00:00 [facility] 2020-07-04 2020-07-04 Outpatient STLMLC STLMLC [id number] Common 00:00:00 00:00:00 [facility] 2020-06-25 2020-06-25 Outpatient STLMLC STLMLC [id number] Common 00:00:00 00:00:00 [facility] 2020-06-05 2020-06-05 Outpatient STLMLC STLMLC [id number] Common 00:00:00 00:00:00 [facility] 2020-04-18 2020-04-18 Outpatient STLMLC STLMLC [id number] Common 00:00:00 00:00:00 [facility] 2020-04-10 2020-04-10 Outpatient STLMLC STLMLC [id number] Common 00:00:00 00:00:00 [facility] 2020-03-27 2020-03-27 Outpatient STLMLC STLMLC [id number] Common 00:00:00 00:00:00 [facility] 2020-03-14 2020-03-14 Outpatient STLMLC STLMLC [id number] Common 00:00:00 00:00:00 [facility] 2020-02-22 2020-02-22 Outpatient STLMLC STLC [id number] Common 00:00:00 00:00:00 [facility] 2019-06-10 2019-06-10 Emergency E SWATI MHBL MHBL [id number] MHBL 11:10:00 14:53:00 , JOSÉ MIGUEL 2019-05-15 2019-05-16 Inpatient [facility] [id number] 15:45:00 19:33:[address] [facility] 2019-05-12 2019-05-12 [facility] [id number] Common 13:55:00 13:55:00 t [facility] [address] [facility] 2019-05-10 2019-05-10 Outpatient R RADIOLOGY [facility] [id number] Univers 08:30:00 08:30:00 [id number] [facility] 2019-04-15 2019-04-15 Outpatient [facility] [id number] Common 14:26:00 14:26:00 t [facility] [address] [facility] 2019-03-30 2019-03-30 Outpatient [facility] [id number] Common 15:15:00 15:15:00 [facility] [address] [facility] 2018-07-21 2018-07-21 Emergency E MHBL BL [id number] MHBL 10:37:00 10:37:00 Results Test Description Test Time Test Comments Results Result Sour e Comments CT ABDOMEN AND 2021-06-28 PELVIS WITH 03:19:42 CONTRAST*WW* [facility] 1975 Sex: F Ex [...] normal/abnormal . GFR 89 See_Comment L [Automated GIBRALTARIAN (test mL/min/1.73m\S\2 message] The code = GFRAA) [...] IU/L 10-49 H 31A) CBC (INCLUDES AUTOMATED DIFFERENTIAL)*[id number] 01:38:00 Test Item Value Reference Range Interpretation [...] CT ABDOMEN AND PELVIS WITH CONTRAST*WW*2021-06-26 21:47:59 [facility] [place] [facility] : 1975 Sex: FExam: CT abdomen and pelvis with contrast.Location: H 12History: Lower abdominal painCOMPARISON: 05/28/2021.Technique: Enhanced spiral [...] Bhargav Jacques MD 06/26/2021 9:47 PM CDT [id number] WITH MICRO *WW*2021-06-26 20:27:00 Test Item Value [...] as normal/abnormal . GFR 102 See_Comment [Automated GIBRALTARIAN (test mL/min/1.73m\S\2 message] The code = GFRAA) [...] A84) <2.50 pg/mL 0.00-45.20 CBC (INCLUDES AUTOMATED DIFFERENTIAL)*[id number] 19:47:00 Test Item Value Reference Range Interpretation [...] ABDOMEN AND PELVIS WITHOUT CONTRAST *WW*2021-05-28 19:03:59 [place] [facility] : 1975 Sex: FEXAMINATION:CT ABDOMEN [...] Valerio Prakash MD 05/28/2021 7:03 PM CDT [id number] METABOLIC LION *WW* 2021-05-28 17:33:00 Test Item [...] ANG) BUN (test code = 9 mg/dL 9- 05D) CREATININE (test 0.7 mg/dL 0.6-1.0 code [...] 18 YEARS OF AGE. BUN/CREA (test 12 20 code = BCR) CALCIUM (test code 9.2 [...] IU/L 10-49 H 31A) AMYLASE AND LIPASE 2021-05-28 17:33:00 Test Item Value Reference Range [...] = PGU) NEGATIVE NEGATIVE CBC (INCLUDES AUTOMATED DIFFERENTIAL)*[id number] 16:40:00 Test Item Value Reference Range Interpretation [...] [Automated message] code = ATYL) The system [employer] generated this result transmit evin reference range [...] as normal/abnormal . GFR 127 See_Comment [Automated GIBRALTARIAN (test mL/min/1.73m\S\2 message] The code = GFRAA) system which generated this result transmit evin reference range : >=90. The reference range was not used to interpret this result as normal/abnormal . EGFR (test code = eGFR BY EGFR) CKD-EPI CALCULATION IS NOT RECOMMENDED FOR PATIENTS UNDER 18 YEARS OF AGE. BUN/CREA (test 13 20 code = BCR) CALCIUM (test code 9.4 [...] ABDOMEN AND PELVIS WITHOUT CONTRAST 2021-03-28 20:55:34 [place] [facility] : 1975 Sex: FEXAM: CT [...] by: Yordy Noel MD 03/28/2021 8:55 PM [facility] [id number] *WW* 2021-03-28 20:33:00 Test Item Value Reference [...] CT STONE PROTOCOL STUDY *WW*2021-01-15 16:28:37 [place] [facility] : 1975 Sex: FExam: CT [...] by: Adolfo Frias MD 01/15/2021 4:28 PM [facility] [id number] METABOLIC PANEL *WW*2021-01-15 15:51:00 Test Item Value [...] as normal/abnormal . GFR 121 See_Comment [Automated GIBRALTARIAN (test mL/min/1.73m\S\2 message] The code = GFRAA) [...] code 9.1 mg/dL 8.3-10.6 = 09D) URINALYSIS *[facility]2021-01-15 15:47:00 Test Item Value Reference Range Interpretation [...] = WAUAM) NO NO CBC (INCLUDES AUTOMATED DIFFERENTIAL)*[id number] 15:42:00 Test Item Value Reference Range Interpretation [...] MORPH (test code = NORMAL WRBCMOR) URINE [id number] 23:31:00 Test Item Value Reference Range Interpretation Comments PREG UR (test code = PGU) NEGATIVE NEGATIVE CT ABDOMEN AND PELVIS WITH [id number] 22:35:54 [facility] [place] [facility] DOB: 1975 Sex: FCT OF THE ABDOMEN AND [...] compatible with steatosis. 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 The refer ence range was not u sed to interpret th is result as normal/abnormal . COMPREHENSIVE METABOLIC [id number] 21:56:00 Test Item Value Reference Range Interpretation [...] as normal/abnormal . GFR 121 See_Comment [Automated GIBRALTARIAN (test mL/min/1.73m\S\2 message] The code = GFRAA) [...] = 81 IU/L 10-49 H 31A) LIPASE [id number] 21:56:00 Test Item Value Reference Range Interpretation Comments LIPASE (test code = 60A) 58 IU/L 12-53 H DRUGS OF [id number] 21:55:00 Test Item Value Reference Range Interpretation [...] Barbiturates 200 ng/mL Opiates 300 ng/mL TROPONIN [id number] 21:54:00 Test Item Value Reference Range Interpretation Comments TROPONIN I (test code <2.50 pg/mL 0.00-45.20 = A84) Ref Range Change (test Please note the code = REF RANGE) change in reference range SERUM [id number] 21:48:00 Test Item Value Reference Range Interpretation Comments PREG SRM (test code = PGS) NEGATIVE NEGATIVE [id number] 21:42:00 Test Item Value Reference Range Interpretation [...] MORPH (test code = RBCMOR) NORMAL OCCULT [id number] 22:22:00 Test Item Value Reference Range Interpretation Comments Direct Exam (test code NEGATIVE FOR OCCULT = DE3) BLOOD CT ABDOMEN AND PELVIS WITH CONTRAST*WW*2020-09-29 21:56:04 [facility] : 1975 Sex: FExam: CT abdomen and pelvis with contrast.Location: 12History: Abdominal painCOMPARISON: 08/01/2020Technique: Enhanced spiral slices [...] Bhargav Jacques MD 09/29/2020 9:56 PM CDT [id number] METABOLIC LION *WW*2020-09-29 21:13:00 Test Item Value [...] normal/abnormal . GFR 87 See_Comment L [Automated GIBRALTARIAN (test mL/min/1.73m\S\2 message] The code = GFRAA) [...] 60A) 105 IU/L [id number] URINALYSIS WITH MICRO 2020-09-29 20:48:00 Test Item Value Reference Range Interpretation [...] = PGU) NEGATIVE NEGATIVE CBC (INCLUDES AUTOMATED DIFFERENTIAL)*[id number] 20:42:00 Test Item Value Reference Range Interpretation [...] [Auto mated message] = BILII) The system [employer] generated this result transmitted ref erence range: [...] See_Comment H [Auto mated message] The system [employer] generated this result transmitted ref erence range: <=42. Th e reference range was not used to interpr et this result as normal/abnormal . ALT (test code = 31A) 66 IU/L See_Comment [Auto mated message] The system [employer] generated this result transmitted ref erence range: <=78. Th e reference range was not used to interpr et this result as normal/abnormal . CARDIAC PROFILE *WW*2020-08-01 20:15:00 Test Item Value Reference Range Interpretation Comments TROPONIN I (test code = A84) <0.015 ng/mL 0.000-0.045 AMYLASE AND LIPASE *WW*2020-08-01 20:10:00 Test Item Value Reference Range Interpretation [...] as normal/abnormal . GFR 95 See_Comment [Automated GIBRALTARIAN (test mL/min/1.73m\S\2 message] The code = GFRAA) [...] mg/dL 8.3-9.5 = 09D) CBC (INCLUDES AUTOMATED DIFFERENTIAL)*[id number] 19:54:00 Test Item Value Reference Range Interpretation [...] ABDOMEN AND PELVIS WITHOUT CONTRAST *WW*2020-08-01 19:51:59 [facility] : 1975 Sex: FCT abdomen and pelvis with contrastLocation Code: [id number] HISTORY: Epigastric painCOMPARISON: NoneTechnique: Helical CT of [...] Ibrahima Kaur MD 08/01/2020 7:51 PM CDT [id number] WITH MICRO *WW*2020-08-01 19:49:00 Test Item Value [...]
[2021-07-15 19:37] LABS: Hematocrit 38.8 % (36.0-45.0); Lymphocytes % 35.9 % (15.3-44.8); RBC Red Blood Cell Count 4.28 M/uL (3.86-4.86)
[2021-07-15 19:47] LABS: BUN Blood Urea Nitrogen 9 mg/dL (7-18); Bicarbonate 28 mmol/L (21-32); Glomerular Filtration Rate 84 ml/min (=/>90); Glucose Level 84 mg/dL (74-106); Sodium Level 136 mmol/L (136-145)
[2021-07-15 19:48] LABS: Troponin High Sensitivity < 3.0 pg/mL (<58.9)
--- NOTE | 2021-07-15 20:00 | RAD REPORT ---
EXAM DESCRIPTION: RAD - Chest Single View - 07/15/2021 7:55 pm CLINICAL HISTORY: CHEST PAIN COMPARISON: Abdomen Acute Series dated 03/17/2019; Chest Pa And Lat (2 Views) dated 12/23/2018; Abdome n Acute Series dated 05/30/2018; Chest Single View dated 11/03/2017 FINDINGS: Lines: None. Lungs: No evidence of edema or pneumonia. Pleural: No significant pleural effusions or pneumothorax. Cardiac: The heart size is within normal limits. Bones: No acute fractures. Other: IMPRESSION: No acute cardiopulmonary disease.
[2021-07-15] MEDS ORDERED: DIPHENHYDRAMINE 50 MG/ML VIAL ONE (20:12)
[2021-07-15] MEDS ORDERED: METOCLOPRAMIDE 10 MG/2mL INJ ONE (20:12)
[2021-07-15] MEDS ORDERED: NA CHLORIDE 0.9% 250 ML ONE (20:16)
[2021-07-15] MEDS ORDERED: FENTANYL CITR 100 MCG/2 ML ONE (20:49)
[2021-07-15] MEDS ORDERED: NA CHLORIDE 0.9% 1,000 ML ONE (22:34)
[2021-07-15] MEDS ORDERED: HYDROMORPHONE HCL 1 MG/ML INJ ONE (22:34)
--- NOTE | 2021-07-15 23:31 | ER ---
Nurse's Notes [facility] Name: Misa Tony Age: 45 yrs Sex: Female : 1975 Arrival Date: 07/15/2021 Time: 18:15 Bed 14 Private MD: Diagnosis: Abdominal pain, Generalized Presentation: 07/15 18:49 Chief complaint: Patient states: I am having sever upper abdominal pain with right jb4 sight pain, and chest tightness. It has been going on for over a month no with no relief. The pain has just been steadily getting worse. Coronavirus screen: At this time, the client does not indicate any symptoms associated with coronavirus-19. Ebola Screen: No symptoms or risks identified at this time. Initial Sepsis Screen: Does the patient meet any 2 criteria? No. Patient's initial sepsis screen is negative. Does the patient have a suspected source of infection? No. Patient's initial sepsis screen is negative. Risk Assessment: Do you want to hurt yourself or someone else? Patient reports no desire to harm self or others. Onset of symptoms was July 15, 2021. Transition of care: patient was not received from another setting of care. 18:49 Method Of Arrival: Ambulatory jb4 18:49 Acuity: ELADIO 3 jb4 Triage Assessment: 19:30 General: Appears in no apparent distress. kirstie 19:30 General: Behavior is calm, cooperative. 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 - Social history:: Smoking status: Patient denies any tobacco usage or history of. Patient/guardian denies using alcohol, street drugs. Screenin:29 Abuse screen: Denies threats or abuse. Denies injuries from another. Nutritional kirstie screening: No deficits noted. Tuberculosis screening: No symptoms or risk factors identified. Fall Risk None identified. Assessment: 19:25 Reassessment: Patient appears in no apparent distress at this time. No changes from kirstie previously documented assessment. I recv'd the pt to room #14 \\T\\ 1915. She c/o upper abd pain x "more than a month". She reports having been seen here and told to f/u with her PCP. She reports that her PCP isn't "seeing any patients this month and I can't take the pain". The pt was seen here this month. She ambulates with a steady gait and can even adjust her own stretcher and remove her leads, to go to the bathroom. Awaiting further orders. 19:30 Cardiovascular: Heart tones S1 S2. kirstie 19:31 Pain: Pain does not radiate. kirstie 19:31 Pain: Pain began "more than a month ago". kirstie 22:03 Reassessment: Patient appears in no apparent distress at this time. Provider is at kirstie bedside discussing POC with the pt and her . 22:24 Reassessment: I spoke with the provider, as the pt's bp is low and more pain kirstie medications were ordered. He said she may have a bolus, as well. Vital Signs: 18:49 BP 115 / 80; Pulse 89; Resp 18; Temp 98.1(TE); Pulse Ox 100% on R/A; Weight 93.89 kg jb4 (R); Height 5 ft. 5 in. (165.10 cm) (R); Pain 10/10; 19:28 BP 116 / 98; Pulse 93; Resp 18; Temp 98.8; Pulse Ox 97% on R/A; kirstie 20:52 BP 107 / 59; Pulse 93; Resp 16; Pulse Ox 99% on R/A; kirstie 22:03 BP 94 / 55; Pulse 95; Resp 16; Pulse Ox 98% on R/A; kirstie 22:36 BP 99 / 63; Pulse 83; Resp 16; Pulse Ox 97% on R/A; kirstie 23:15 BP 102 / 69; Pulse 94; Resp 18; Pulse Ox 97% on R/A; kirstie 23:41 BP 97 / 61; Pulse 95; Resp 16; Temp 98.8; Pulse Ox 97% on R/A; kirstie 18:49 Body Mass Index 34.45 (93.89 kg, 165.10 cm) jb4 ED Course: 18:15 Patient arrived in ED. mr 18:52 Triage completed. jb4 18:52 Arm band placed on right wrist. jb4 19:11 Fahad Dennis PA is PHCP. [facility] 19:11 Larry Alcantar MD is Attending Physician. jmm 19:25 Yaz Murphy, RN is Primary Nurse. kirstie 19:30 No provider procedures requiring assistance completed. IV is patent, is intact. kirstie 19:31 Bed in low position. Call light in reach. kirstie 19:31 Patient maintains SpO2 saturation greater than 95% on room air. kirstie 19:57 XRAY Chest (1 view) In Process Unspecified. EDMS 23:49 intact, bleeding controlled, No redness/swelling at site. Pressure dressing applied. kirstie Administered Medications: 20:23 Drug: diphenhydrAMINE 25 mg Route: IVP; Site: right antecubital; kirstie 20:52 Follow up: Response: No adverse reaction kirstie 20:24 Drug: Reglan (metoCLOPramide) 20 mg {Note: placed in 250cc NS.} Route: IVP; Site: right kirstie antecubital; 20:52 Follow up: Response: No adverse reaction kirstie 20:51 Drug: fentaNYL (PF) 50 mcg Route: IVP; Site: right antecubital; kirstie 20:52 Follow up: Response: No adverse reaction kirstie 22:36 Drug: Dilaudid (HYDROmorphone) 1 mg Route: IVP; Site: right antecubital; kirstie 22:36 Drug: NS 0.9% 1000 ml Route: IV; Rate: 1 bolus; Site: right antecubital; kirstie Medication: 19:31 VIS not applicable for this client. kirstie Outcome: 19:30 Condition: stable kirstie 23:30 Discharge ordered by . m 23:50 Discharged to home ambulatory, with family. kirstie 23:50 Discharge instructions given to patient, Instructed on Demonstrated understanding of kirstie Prescriptions given X 2. 23:50 Patient left the ED. kirstie Signatures: Dispatcher [employer] EDMS Fahad Dennis PA PA jmm Rivera, Mary mr FraireValerio, RN RN jb4 Yaz Murphy, RN RN kirstie
--- NOTE | 2021-07-15 23:31 | EDPHYS ---
Physician Documentation [facility] Name: Misa Tony Age: 45 yrs Sex: Female : 1975 Arrival Date: 07/15/2021 Time: 18:15 Bed 14 Private MD: ED Physician Larry Alcantar HPI: 07/15 18:55 This 45 yrs old Female presents to ER via Ambulatory with complaints of Chest jmm Tightness, Abdominal Pain. 18:55 The patient presents with abdominal pain. Onset: The symptoms/episode began/occurred jmm gradually. The symptoms do not radiate. Associated signs and symptoms: Pertinent positives: nausea. This is a 45 year old female with a history of pancreatitis, htn, endometriosis that presents to the ED with complaints of generalized abdominal pain. Denies fever. Patient has had similar episodes chronically. . 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 - Social history:: Smoking status: Patient denies any tobacco usage or history of. Patient/guardian denies using alcohol, street drugs. ROS: 18:55 Constitutional: Negative for fever, chills, and weight loss, Cardiovascular: Negative jmm for chest pain, palpitations, and edema, Respiratory: Negative for shortness of breath, cough, wheezing, and pleuritic chest pain. 18:55 Abdomen/GI: Positive for abdominal pain. 18:55 All other systems are negative. Exam: 18:55 Constitutional: This is a well developed, well nourished patient who is awake, alert, jmm and in no acute distress. Head/Face: atraumatic. Eyes: EOMI, no conjunctival erythema appreciated ENT: Moist Mucus Membranes Neck: Trachea midline, Supple Chest/axilla: Normal chest wall appearance and motion. Cardiovascular: Regular rate and rhythm. No edema appreciated Respiratory: Normal respirations, no respiratory distress appreciated 18:55 Back: Normal ROM Skin: General appearance color normal MS/ Extremity: Moves all extremities, no obvious deformities appreciated, no edema noted to the lower extremities Neuro: Awake and alert Psych: Behavior is normal, Mood is normal, Patient is cooperative and pleasant 18:55 Abdomen/GI: Inspection: abdomen appears normal, Bowel sounds: normal, Palpation: abdomen is soft and non-tender, soft, in all quadrants, moderate abdominal tenderness, in all quadrants. Vital Signs: 18:49 BP 115 / 80; Pulse 89; Resp 18; Temp 98.1(TE); Pulse Ox 100% on R/A; Weight 93.89 kg jb4 (R); Height 5 ft. 5 in. (165.10 cm) (R); Pain 10/10; 19:28 BP 116 / 98; Pulse 93; Resp 18; Temp 98.8; Pulse Ox 97% on R/A; kirstie 20:52 BP 107 / 59; Pulse 93; Resp 16; Pulse Ox 99% on R/A; kirstie 22:03 BP 94 / 55; Pulse 95; Resp 16; Pulse Ox 98% on R/A; kirstie 22:36 BP 99 / 63; Pulse 83; Resp 16; Pulse Ox 97% on R/A; kirstie 23:15 BP 102 / 69; Pulse 94; Resp 18; Pulse Ox 97% on R/A; kirstie 23:41 BP 97 / 61; Pulse 95; Resp 16; Temp 98.8; Pulse Ox 97% on R/A; kirstie 18:49 Body Mass Index 34.45 (93.89 kg, 165.10 cm) jb4 MDM: 19:32 Patient medically screened. krzysztof 23:29 Data reviewed: vital signs, nurses notes. Counseling: I had a detailed discussion with krzysztof the patient and/or guardian regarding: the historical points, exam findings, and any diagnostic results supporting the discharge/admit diagnosis, lab results, the need for outpatient follow up, to return to the emergency department if symptoms worsen or persist or if there are any questions or concerns that arise at home. Response to treatment: the patient's symptoms have markedly improved after treatment. 07/15 18:55 Order name: Basic Metabolic Panel; Complete Time: 20:05 ms3 07/15 18:55 Order name: CBC with Diff; Complete Time: 20:05 ms3 07/15 18:55 Order name: Troponin HS; Complete Time: 20:05 ms3 07/15 18:55 Order name: XRAY Chest (1 view); Complete Time: 20:05 ms3 07/15 18:55 Order name: EKG; Complete Time: 18:55 ms3 07/15 18:55 Order name: Cardiac monitoring; Complete Time: 20:55 ms3 07/15 18:55 Order name: EKG - Nurse/Tech; Complete Time: 19:11 ms3 07/15 18:55 Order name: IV Saline Lock; Complete Time: 19:11 ms3 07/15 18:55 Order name: Labs collected and sent; Complete Time: 19:11 ms3 07/15 18:55 Order name: O2 Per Protocol; Complete Time: 20:55 ms3 07/15 18:55 Order name: O2 Sat Monitoring; Complete Time: 20:55 ms3 Administered Medications: 20:23 Drug: diphenhydrAMINE 25 mg Route: IVP; Site: right antecubital; kirstie 20:52 Follow up: Response: No adverse reaction kirstie 20:24 Drug: Reglan (metoCLOPramide) 20 mg {Note: placed in 250cc NS.} Route: IVP; Site: right kirstie antecubital; 20:52 Follow up: Response: No adverse reaction kirstie 20:51 Drug: fentaNYL (PF) 50 mcg Route: IVP; Site: right antecubital; kirstie 20:52 Follow up: Response: No adverse reaction kirstie 22:36 Drug: Dilaudid (HYDROmorphone) 1 mg Route: IVP; Site: right antecubital; kirstie 22:36 Drug: NS 0.9% 1000 ml Route: IV; Rate: 1 bolus; Site: right antecubital; kirstie Disposition Summary: 07/15/21 23:30 Discharge Ordered Location: Home jmm Condition: Stable jmm Diagnosis - Abdominal pain, Generalized jmm Followup: jmm - With: Private Physician - When: 2 - 3 days - Reason: Recheck today's complaints, Continuance of care, Re-evaluation by your physician Discharge Instructions: - Discharge Summary Sheet jmm - Abdominal Pain, Adult jmm - Gastroparesis jmm Forms: - Medication Reconciliation Form jmm - Thank You Letter jmm - Antibiotic Education jmm - Prescription Opioid Use jmm Prescriptions: - Reglan 10 mg Oral Tablet - take 1 tablet by ORAL route every 6 hours take 30 minutes before meals and at [facility] bedtime; 20 tablet; Refills: 0, Product Selection Permitted - Pepcid 20 mg Oral Tablet - take 1 tablet by ORAL route every 12 hours for 10 days; 20 tablet; Refills: 0, [facility] Product Selection Permitted Addendum: 07/17/2021 07:20 Co-signature as Attending Physician, Larry Alcantar MD. [facility] Signatures: Dispatcher [employer] EDAZ Fahad Dennis PA PA [facility] Valerio Fraire, RN RN jb4 Lloyd Espinal DO DO ms3 Larry Alcantar MD MD mh7 Yaz Murphy RN RN kirstie
[2021-07-16 00:35] VITALS: TEMP 98.8
[2021-07-16 00:39] VITALS: O2SAT 97
[2021-07-16 00:42] VITALS: BP 97/61
--- NOTE | 2021-07-16 12:18 | EKG ---
Test Date: 2021-07-15 Test Time: 18:56:57 Hoisting Engineer: GOPAL MEASUREMENT RESULTS: Intervals: Rate: 91 [place]: 160 QRSD: 88 QT: 356 QTc: 437 [place]: P: 49 NJ: 160 QRS: 4 T: 0 INTERPRETIVE STATEMENTS: Normal sinus rhythm Nonspecific ST and T wave abnormality Abnormal ECG Compared to ECG 08/16/2020 12:59:56 ST (T wave) deviation now present Myocardial infarct finding no longer present Electronically Signed On 07-16-21 12:16:37 CDT by Kj Barker
== END 2021-07-15 23:50 | disposition home or self-care (01) ==
LOC: ER 18:13
DX: R10.84 Generalized abdominal pain (principal); I10 Essential (primary) hypertension; K21.9 Gastro-esophageal reflux disease without esophagitis; Z88.5 Allergy status to narcotic agent
CPT/HCPCS: 36415; 71045; 80048; 84484; 85025; 93005; 96374; 96375; 99284; J1170; J1200; J2765; J3010; J7030; J7050

== ENCOUNTER 2021-08-17 12:53 | Emergency (ER) | payer SELFPAY ==
[2021-08-17 14:25] LABS: Absolute Lymphocytes (CBC) 3.5 K/uL (0.7-4.9); Hematocrit 41.4 % (36.0-45.0); Lymphocytes % 33.8 % (15.3-44.8); MCV 90.5 fL (80-100); MPV 9.9 fL (7.6-11.3); RBC Red Blood Cell Count 4.58 M/uL (3.86-4.86)
[2021-08-17] MEDS ORDERED: METOCLOPRAMIDE 10 MG/2mL INJ ONE (14:42)
[2021-08-17 14:43] LABS: Bilirubin Total 0.5 mg/dL (0.2-1.0); Potassium 3.7 mmol/L (3.5-5.1); Protein, Total 8.6 g/dL (6.4-8.2)
[2021-08-17] MEDS ORDERED: FAMOTIDINE 20 MG/2 ML VIAL IV ONE (14:43)
[2021-08-17] MEDS ORDERED: HYDROMORPHONE HCL 0.5 MG/0.5 ML INJ ONE (14:43)
[2021-08-17] MEDS ORDERED: NA CHLORIDE 0.9% 1,000 ML ONE (14:43)
[2021-08-17] MEDS ORDERED: LORazepam 2 MG/ML VIAL ONE (14:43)
[2021-08-17] MEDS ORDERED: DIPHENHYDRAMINE 50 MG/ML VIAL ONE (14:43)
[2021-08-17] MEDS ORDERED: HYDROMORPHONE HCL 1 MG/ML INJ ONE (16:04)
--- NOTE | 2021-08-17 16:32 | ER ---
Nurse's Notes [facility] Name: Misa Tony Age: 45 yrs Sex: Female : 1975 Arrival Date: 08/17/2021 Time: 13:03 Bed 15 Private MD: Diagnosis: Chronic Abdominal Pain Presentation: 08/17 13:18 Chief complaint: Patient states: ABD pain x 3 days with NVD. Coronavirus screen: vg1 Vaccine status: Patient reports receiving the 2nd dose of the covid vaccine. Client denies travel out of the [place] in the last 14 days. Ebola Screen: Patient denies exposure to infectious person. Patient denies travel to an Ebola-affected area in the 21 days before illness onset. Initial Sepsis Screen: Does the patient meet any 2 criteria? No. Patient's initial sepsis screen is negative. Does the patient have a suspected source of infection? No. Patient's initial sepsis screen is negative. Risk Assessment: Do you want to hurt yourself or someone else? Patient reports no desire to harm self or others. Onset of symptoms was August 14, 2021. 13:18 Method Of Arrival: Ambulatory [facility] 13:18 Acuity: ELADIO 3 vg1 Triage Assessment: 13:19 General: Appears uncomfortable, Behavior is cooperative. Pain: Complains of pain in vg1 abdomen Pain currently is 9 out of 10 on a pain scale. Pain began 2-3 days ago. GI: Reports diarrhea, nausea, vomiting. 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 - Social history:: Smoking status: Patient denies any tobacco usage or history of. Screenin:50 Abuse screen: Denies threats or abuse. Denies injuries from another. Nutritional jg9 screening: No deficits noted. Tuberculosis screening: No symptoms or risk factors identified. Fall Risk None identified. Assessment: 14:50 Reassessment: No changes from previously documented assessment. Patient and/or family jg9 updated on plan of care and expected duration. Pain level reassessed. Patient is alert, oriented x 3, equal unlabored respirations, skin warm/dry/pink. 14:50 GI: Bowel sounds present X 4 quads. Abd is soft X 4 quads Abd is non tender X 4 quads jg9 Reports lower abdominal pain, upper abdominal pain. Vital Signs: 13:18 BP 124 / 74; Pulse 85; Resp 16; Temp 97.7; Pulse Ox 100% ; Weight 94.8 kg; Height 5 ft. vg1 5 in. (165.10 cm); Pain 9/10; 14:45 BP 115 / 78; Pulse 83; Resp 16 S; Pulse Ox 97% on R/A; Pain 10/10; jg9 15:30 BP 121 / 72; Pulse 82; Resp 15 S; Pulse Ox 97% on R/A; Pain 6/10; jg9 17:15 BP 119 / 75; Pulse 80; Resp 14 S; Pulse Ox 95% on R/A; Pain 2/10; jg9 13:18 Body Mass Index 34.78 (94.80 kg, 165.10 cm) vg1 ED Course: 13:03 Patient arrived in ED. mr 13:19 Triage completed. vg1 13:20 Arm band placed on. vg1 13:38 Fahad Dennis PA is PHCP. [facility] 13:38 Cade Hull MD is Attending Physician. [facility] 14:03 Candace Galloway, VINOD is Primary Nurse. j9 14:03 Initial lab(s) drawn, by ga, sent to lab. Inserted saline lock: 20 gauge in left wrist, vg1 using aseptic technique. Blood collected. 14:51 Patient has correct armband on for positive identification. Bed in low position. Call j9 light in reach. Side rails up X 1. 17:27 No provider procedures requiring assistance completed. jg9 17:28 IV discontinued. jg9 Administered Medications: 13:57 CANCELLED (Duplicate Order): Zofran (Ondansetron) 4 mg IVP once; over 2 minutes [facility] 14:45 Drug: NS 0.9% 1000 ml Route: IV; Rate: 1 bolus; Site: left hand; jg9 15:51 Follow up: IV Status: Completed infusion; IV Intake: 1000ml jg9 14:45 Drug: Reglan (metoCLOPramide) 20 mg {Note: in 1L bolus.} Route: IVP; Site: left hand; jg9 15:51 Follow up: Response: No adverse reaction; No change in condition jg9 14:46 Drug: Ativan (LORazepam) 1 mg Route: IVP; Site: left hand; jg9 15:52 Follow up: Response: No adverse reaction; Anxiety unchanged jg9 14:47 Drug: diphenhydrAMINE 25 mg Route: IVP; Site: left hand; jg9 15:52 Follow up: Response: No adverse reaction jg9 14:48 Drug: Dilaudid (HYDROmorphone) 0.5 mg Route: IVP; Site: left hand; jg9 15:52 Follow up: Response: No adverse reaction; Pain is unchanged, physician notified jg9 14:49 Drug: Pepcid (famotidine) 20 mg Route: IVP; Site: left hand; jg9 15:51 Follow up: Response: No adverse reaction jg9 16:01 Drug: Dilaudid (HYDROmorphone) 1 mg {Note: RASS-0.} Route: IVP; Site: left wrist; jg9 Medication: 14:51 VIS not applicable for this client. jg9 Intake: 15:51 IV: 1000ml; Total: 1000ml. jg9 Outcome: 16:31 Discharge ordered by MD. [place] 17:27 Discharged to home ambulatory. jg9 17:27 Condition: improved 17:27 Discharge instructions given to patient, Instructed on discharge instructions, follow up and referral plans. Demonstrated understanding of instructions, follow-up care, Prescriptions given X 1. 17:28 Patient left the ED. jg9 Signatures: Fahad Dennis PA PA jmm Rivera, Mary mr Garcia, Victoria, RN RN vg1 Candace Galloway RN RN jg9
--- NOTE | 2021-08-17 16:33 | EDPHYS ---
Physician Documentation [facility] Name: Misa Tony Age: 45 yrs Sex: Female : 1975 Arrival Date: 08/17/2021 Time: 13:03 Bed 15 Private MD: ED Physician Cade Hull HPI: 08/17 13:57 This 45 yrs old Female presents to ER via Ambulatory with complaints of Abdominal Pain. m 13:57 The patient presents with abdominal pain. Onset: The symptoms/episode began/occurred jmm gradually. The symptoms do not radiate. Associated signs and symptoms: Pertinent positives: nausea and vomiting. The symptoms are described as achy. Modifying factors: The symptoms are alleviated by nothing, the symptoms are aggravated by nothing. The patient has experienced similar episodes in the past, chronically. 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 - Social history:: Smoking status: Patient denies any tobacco usage or history of. ROS: 13:57 Constitutional: Negative for fever, chills, and weight loss, Eyes: Negative for injury, jmm pain, redness, and discharge, ENT: Negative for injury, pain, and discharge, Neck: Negative for injury, pain, and swelling, Cardiovascular: Negative for chest pain, palpitations, and edema, Respiratory: Negative for shortness of breath, cough, wheezing, and pleuritic chest pain. 13:57 Abdomen/GI: Positive for abdominal pain. 13:57 All other systems are negative. Exam: 13:57 Constitutional: This is a well developed, well nourished patient who is awake, alert, jmm and in no acute distress. Head/Face: atraumatic. Eyes: EOMI, no conjunctival erythema appreciated ENT: Moist Mucus Membranes Neck: Trachea midline, Supple Chest/axilla: Normal chest wall appearance and motion. Cardiovascular: Regular rate and rhythm. No edema appreciated Respiratory: Normal respirations, no respiratory distress appreciated Abdomen/GI: Non distended Back: Normal ROM Skin: General appearance color normal MS/ Extremity: Moves all extremities, no obvious deformities appreciated, no edema noted to the lower extremities Neuro: Awake and alert Psych: Behavior is normal, Mood is normal, Patient is cooperative and pleasant 13:57 Abdomen/GI: Inspection: abdomen appears normal, Bowel sounds: normal, Palpation: soft, in all quadrants. Vital Signs: 13:18 BP 124 / 74; Pulse 85; Resp 16; Temp 97.7; Pulse Ox 100% ; Weight 94.8 kg; Height 5 ft. vg1 5 in. (165.10 cm); Pain 9/10; 14:45 BP 115 / 78; Pulse 83; Resp 16 S; Pulse Ox 97% on R/A; Pain 10/10; jg9 15:30 BP 121 / 72; Pulse 82; Resp 15 S; Pulse Ox 97% on R/A; Pain 6/10; jg9 17:15 BP 119 / 75; Pulse 80; Resp 14 S; Pulse Ox 95% on R/A; Pain 2/10; jg9 13:18 Body Mass Index 34.78 (94.80 kg, 165.10 cm) vg1 MDM: 14:01 Patient medically screened. [facility] 16:18 Data reviewed: vital signs, nurses notes. [facility] 16:18 Counseling: I had a detailed discussion with the patient and/or guardian regarding: the [facility] historical points, exam findings, and any diagnostic results supporting the discharge/admit diagnosis, the need for outpatient follow up, to return to the emergency department if symptoms worsen or persist or if there are any questions or concerns that arise at home. 16:30 Response to treatment: the patient's symptoms have markedly improved after treatment, abbey and as a result, I will discharge patient. 08/17 13:57 Order name: CBC with Diff; Complete Time: 14:34 [facility] 08/17 13:57 Order name: CMP; Complete Time: 14:52 [facility] 08/17 13:57 Order name: Lipase; Complete Time: 14:52 [facility] 08/17 13:57 Order name: IV Saline Lock; Complete Time: 14:03 [facility] 08/17 13:57 Order name: Labs collected and sent; Complete Time: 14:03 [facility] Administered Medications: 13:57 CANCELLED (Duplicate Order): Zofran (Ondansetron) 4 mg IVP once; over 2 minutes [facility] 14:45 Drug: NS 0.9% 1000 ml Route: IV; Rate: 1 bolus; Site: left hand; jg9 15:51 Follow up: IV Status: Completed infusion; IV Intake: 1000ml j9 14:45 Drug: Reglan (metoCLOPramide) 20 mg {Note: in 1L bolus.} Route: IVP; Site: left hand; jg9 15:51 Follow up: Response: No adverse reaction; No change in condition j9 14:46 Drug: Ativan (LORazepam) 1 mg Route: IVP; Site: left hand; jg9 15:52 Follow up: Response: No adverse reaction; Anxiety unchanged j9 14:47 Drug: diphenhydrAMINE 25 mg Route: IVP; Site: left hand; jg9 15:52 Follow up: Response: No adverse reaction j9 14:48 Drug: Dilaudid (HYDROmorphone) 0.5 mg Route: IVP; Site: left hand; jg9 15:52 Follow up: Response: No adverse reaction; Pain is unchanged, physician notified j9 14:49 Drug: Pepcid (famotidine) 20 mg Route: IVP; Site: left hand; jg9 15:51 Follow up: Response: No adverse reaction j9 16:01 Drug: Dilaudid (HYDROmorphone) 1 mg {Note: RASS-0.} Route: IVP; Site: left wrist; jg9 Disposition: 17:41 Co-signature as Attending Physician, Cade Hull MD I agree with the assessment and kdr plan of care. Disposition Summary: 08/17/21 16:31 Discharge Ordered Location: Home [facility] Condition: Stable [facility] Diagnosis - Chronic Abdominal Pain [facility] Followup: [facility] - With: Private Physician - When: 2 - 3 days - Reason: Recheck today's complaints, Continuance of care, Re-evaluation by your physician Discharge Instructions: - Discharge Summary Sheet [facility] - Abdominal Pain, Adult [facility] Forms: - Medication Reconciliation Form [facility] - Thank You Letter [facility] - Antibiotic Education [facility] - Prescription Opioid Use [facility] Prescriptions: - sucralfate 1 gram Oral tablet - take 1 tablet by ORAL route 4 times per day on an empty stomach 1 hour before [facility] meals and at bedtime; 40 tablet; Refills: 0, Product Selection Permitted Signatures: Dispatcher [employer] Cade Chu MD MD kdr Mickail, Joel, PA PA jmm Garcia, Victoria RN RN vg1 Candace Galloway RN RN jg9 Corrections: (The following items were deleted from the chart) 13:57 13:57 Zofran (Ondansetron) 4 mg IVP once; over [address] [facility]
[2021-08-17 17:43] VITALS: TEMP 97.7
[2021-08-17 18:03] VITALS: BP 119/75; O2SAT 95
== END 2021-08-17 17:28 | disposition home or self-care (01) ==
LOC: ER 12:53
DX: R10.9 Unspecified abdominal pain (principal); R11.2 Nausea with vomiting, unspecified; I10 Essential (primary) hypertension; Z88.5 Allergy status to narcotic agent
CPT/HCPCS: 36415; 80053; 83690; 85025; 99284; J1170; J1200; J2765; J3490; J7030

== ENCOUNTER 2021-12-11 12:23 | Emergency (ER) | payer SELFPAY ==
--- OUTSIDE RECORDS SUMMARY | 2021-12-11 12:55 | XMS REPORT | Continuity of Care Document ---
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 as: l 14:00: Prinivil, Zestril) Hydrochloro No 1 tab, Solomon lashaun thiazide 3-28 Route: PO, l 12.5 MG / 14:00: Drug Form: Jovani george Lisinopril 00 TAB, 10 MG Oral Dosing Tablet Weight 79.545, kg, Daily, Start date: 05/14/19 9:00:00 CDT, Duration: 30 day, Stop date: 06/12/19 9:00:00 CDT Protonix No Notes: Memoria 3-28 Tablet l 14:00: should not [place] 00 be chewed or crushed. (Same as: Protonix) hydrochloro No Notes: Solomon lashaun thiazide 25 05-13 (Same as: l mg oral 14:00: Hydrodiuri Herm elizabet tablet 00 l). Give with food. Phenergan No Notes: Do Mem oria 05-13 not give l 10:21: IV push. River (Same as: Phenergan) Ativan No Notes: Memoria 05-13 (Same as: l 01:34: Ativan) Dicyclomine No Notes: Solomon lashaun 05-13 (Same as: l 00:56: Bentyl) Dextrose No 12.5 gm, Memor ia 50% Syringe 05-13 25 mL, l (D50W) 00:52: Route: IVP, Drug Form: INJ, Dosing Weight 79.545, kg, PRN, PRN Blood Glucose Results, Start date: 05/13/19 19:52:00 CDT, Duration: 30 day, Stop date: 06/12/19 19:51:00 CDT, 0 Glucagon No 1 mg, Memoria 05-13 Route: IM, l 00:52: Drug form: PDR/INJ, PRN, Dosing Weight 79.545, kg, PRN Blood Glucose Results, Start date: 05/13/19 19:52:00 CDT, Duration: 30 day, Stop date: 06/12/19 19:51:00 CDT, 0 Docusate No Notes: Memoria 05-13 (Same as: l 00:52: Colace) (Do Not Crush) Ondansetron No Notes: Solomon lashaun 05-13 (Same as: l 00:52: Zofran) MEDICATION WASTE Product Size: 4 mg Product Wasted: ___ mg Melatonin No Notes: Memori a 05-13 (Same as: l 00:52: Melatonin) Acetaminoph No Notes: Do M emoria en 05-13 not exceed l 00:52: 4 gm/day. [place] 00 (Same as: Tylenol) Lactated No 1,000 mL, Solomon lashaun Ringers IV 05-13 Rate: 75 l 1,000 mL 00:52: ml/hr, Infuse over: 13.3 hr, Route: IV, Dosing Weight 79.545 kg, Total Volume: 1,000, Start date: 05/13/19 19:52:00 CDT, Duration: 30 day, Stop date: 06/12/19 19:51:00 CDT, 1.93, m2, 0 Saline No Notes: Memoria Flush 0.9% 05-13 (Same as: l 00:52: BD Posiflush) Hydromorpho No Notes: Solomon lashaun ne 05-13 Same as: l 00:52: Dilaudid linaclotide Yes PO, Daily, Memoria 05-13 0 l 00:06: Refill(s) Hydrochloro Yes 1 tab, PO, Memoria thiazide 05-13 Daily, # l 12.5 MG / 00:06: 30 tab, 0 Her montelongo Lisinopril 00 Refill(s) 10 MG Oral Tablet Acetaminoph Yes 1 tab, PO, Memoria en 300 MG / 6-05 Q8H, PRN l Codeine 20:05: Pain, X 5 Rena nn Phosphate 00 day, # 15 30 MG Oral tab, 0 Tablet Refill(s) [Tylenol with Codeine #3] Reglan No Notes: Memoria 6-05 (Same as: l 18:47: Reglan) ketOROLAC No 4 days Memor ia 30 mg/mL 07-21 l injectable 18:47: MEDICATION H ermann solution WASTE Product Size: 30 mg Product Wasted: ___ mg GI cocktail No 30 mL, Solomon lashaun (aluminum 05 Route: PO, l hydroxide/m 18:24: Dosing Herm elizabet agnesium Weight hydroxide/l 81.818, idocaine/si kg, ONCE, methicone) STAT, Start date: 07/21/18 13:24:00 CDT, Stop date: 07/21/18 13:24:00 CDT Sodium No 1,000 mL, Memori a Chloride 6-05 1000 l 0.9% 15:48: ml/hr, River (Bolus) IV 00 Infuse Over: 1 hr, Route: IV, 1,000, Drug form: INJ, ONCE, Priority: STAT, Dosing Weight 81.818 kg, Start date: 07/21/18 10:48:00 CDT, Stop date: 07/21/18 10:48:00 CDT Ondansetron No Notes: Solomon lashaun 6-05 (Same as: l 15:48: Zofran) MEDICATION WASTE Product Size: 4 mg Product Wasted: ___ mg Saline No Notes: Memoria Flush 0.9% 6-05 preservati l 15:48: ve free. Ondansetron Yes 4 mg = 1 Me moria 4 MG 4-24 tab, PO, l Disintegrat 00:45: TID, PRN He rmann ing Tablet 00 Nausea & [Zofran] Vomiting, Dissolve tab under tongue, # 6 tab, 0 Refill(s) Metoclopram Yes 5 mg = 1 Me moria talat 5 MG 4-24 tab, PO, l Oral Tablet 00:45: QID-Before [Reglan] 00 Meals, X 10 day, # 40 tab, 0 Refill(s) Reglan No Notes: Memoria 4-23 (Same as: l 22:49: Reglan) Haldol No Notes: Memoria 4-23 (Same as: l 22:49: Haldol) Sodium No 1,000 mL, Memori a Chloride 4-23 1000 l 0.9% 21:08: ml/hr, [place] (Bolus) IV 00 Infuse Over: 1 hr, Route: IV, 1,000, Drug form: INJ, ONCE, Priority: STAT, Dosing Weight 81.818 kg, Start date: 06/08/18 16:08:00 CDT, Stop date: 06/08/18 16:08:00 CDT Haldol No Notes: Memoria 4-23 (Same as: l 21:07: Haldol) Benadryl 2019-0 No Notes: Memoria 4-23 (Same as: l 21:07: Benadryl) Reglan 2018- No Notes: Memoria 4-23 (Same as: l 21:07: Reglan) [place] 00 Saline 2018-0 No Notes: Memoria Flush 0.9% 4-23 (Same as: l 18:20: BD [place] 00 Posiflush) ondansetron 2018-0 Yes 4mg Take 1 Univ [...] 00:00: mouth [place] 00 daily. [facility] meclizine Yes 25 mg = 1 Mem oria 25 mg oral 8-12 tab, CHEW, l tablet, 01:09: TID, PRN Luke n chewable 00 Dizziness, X 10 day, # 30 tab, 0 Refill(s) Ondansetron Yes 4 mg = 1 Me moria 4 MG 8-12 tab, PO, l Disintegrat 01:09: BID, PRN He rmann ing Tablet 00 Nausea and [Zofran] Vomiting, Dissolve tab under tongue, # 10 tab, 0 Refill(s) Reglan No Notes: Memoria 8-12 (Same as: l 00:37: Reglan) [place] 00 Ativan No 1 mg, Memoria 8-11 Route: l 23:55: IVP, Drug [place] form: INJ, ONCE, Dosing Weight 75, kg, Priority: STAT, Start date: 09/26/16 18:55:00 CDT, Stop date: 09/26/16 18:55:00 CDT Sodium 2017-0 No 1,000 mL, Memori a Chloride 8-11 Infuse l 0.9% 23:55: Over: 1 [place] (Bolus) IV 00 hr, Route: IV, ONCE, Priority: STAT, Dosing Weight 75 kg, Start date: 09/26/16 18:55:00 CDT, Duration: 1 doses or times, Stop date: 09/26/16 18:55:00 CDT sodium 2017-0 No 1,000 mL, Memori a chloride 7-24 Rate: 25 l 0.9% 1000 12:26: ml/hr, Luke n ml INJ 00 Infuse 1,000 mL over: 40 hr, Route: IV, Dosing Weight 72.727 kg, Total Volume: 1,000, Start date: 09/08/16 7:26:00 CDT, Duration: 30 day, Stop date: 10/08/16 7:25:00 CDT Phenergan No Notes: Do Mem oria 09-07 not give l 01:15: IV push. Kin[place] 00 (Same as: Phenergan) Reglan No Notes: Memoria 09-06 (Same as: l 01:46: Reglan) [place] 00 Dilaudid No Notes: Memoria 09-06 Same as: l 01:44: Dilaudid [place] 00 Famotidine No Notes: Memor ia 20 MG Oral 09-05 (Same as: l Tablet 22:00: Pepcid) [place] [Pepcid] 00 Dicyclomine No Notes: Solomon lashaun - (Same as: l 22:00: Bentyl) River magnesium No Notes: Memori a citrate 09-05 (Same as: l 58.2 MG/ML 16:06: Citrate of H ermann Oral 00 Magnesia) Solution Concentrat ion: 1.745 gm / 30 mL Pepcid No Notes: Memoria - (Same as: l 14:00: Pepcid) [place] 00 Can be dilute in 5-10cc NS IVP: Slow IV push over at least 2 minutes. ketOROLAC No 4 days. Solomon lashaun 15 mg/mL 09-05 l injectable 09:29: River solution 00 sodium No 1,000 mL, Memori a chloride 09-05 Rate: 125 l 0.9% 1000 08:26: ml/hr, Luke n ml INJ 00 Infuse 1,000 mL over: 8 hr, Route: IV, Dosing Weight 72.727 kg, Total Volume: 1,000, Start date: 09/05/16 3:26:00 CDT, Duration: 30 day, Stop date: 10/05/16 3:25:00 CDT Dilaudid No Notes: Memoria 7- Same as: l 04:28: Dilaudid [place] 00 Ondansetron No Notes: Solomon lashaun -21 (Same as: l 02:00: Zofran) [place] 00 MEDICATION WASTE Product Size: 4 mg Product Wasted: ___ mg Morphine No 2 mg, 1 Memori a 7-21 mL, Route: l 02:00: IVP, Drug form: SOLN, Q4H, Dosing Weight 72.727, kg, PRN Pain Score 7-10, Start date: 09/04/16 21:00:00 CDT, Duration: 30 day, Stop date: 10/04/16 20:59:00 CDT heparin No Notes: Memoria 09-05 porcine l 02:00: heparin Metoclopram No Notes: Solomon lashaun talat 09-05 (Same as: l 00:33: Reglan) Promethazin No Notes: Do M emoria e 09-05 not give l 00:33: IV push. (Same as: Phenergan) Hydromorpho No 1 mg, Memor ia ne -20 Route: l 23:22: IVP, ONCE, Dosing Weight 72.727, kg, Priority: STAT, Start date: 09/04/16 18:22:00 CDT, Stop date: 09/04/16 18:22:00 CDT Ondansetron No 4 mg, Memor ia 20 Route: l 23:22: IVP, Drug form: INJ, ONCE, Dosing Weight 72.727, kg, Priority: STAT, Start date: 09/04/16 18:22:00 CDT, Stop date: 09/04/16 18:22:00 CDT Bentyl No 20 mg, Memoria 20 Route: IM, l 22:41: ONCE, Dosing Weight 72.727, kg, Start date: 09/04/16 17:41:00 CDT, Stop date: 09/04/16 17:41:00 CDT Morphine No Notes: Memoria 7-20 (Same l 21:14: as:MORPhin e Sulfate) Ondansetron No Notes: Solomon lashaun -20 (Same as: l 21:14: Zofran) MEDICATION WASTE Product Size: 4 mg Product Wasted: ___ mg Sodium No 1,000 mL, Memori a Chloride 09-04 2,000 l 0.9% 21:14: ml/hr, [place] (Bolus) IV 00 Infuse Over: 30 minutes, Route: IV, 1,000, Drug form: INJ, ONCE, Priority: STAT, Dosing Weight 72.727 kg, Start date: 09/04/16 16:14:00 CDT, Duration: 1 doses or times, Stop date: 09/04/16 16:14:00 CDT Saline No Notes: Memoria Flush 0.9% 09-04 (Same as: l 21:14: BD [place] 00 Posiflush) Acetaminoph No 1 - 2 tab, Memoria en 300 MG / 08-17 PO, Q4H, l Codeine 04:49: PRN Pain, Rena nn Phosphate 00 X 2 day, # 60 MG Oral 20 tab, 0 Tablet Refill(s) Ketorolac No 4 days Memor ia 08-17 l 04:32: MEDICATION [place] 00 WASTE Product Size: 30 mg Product Wasted: ___ mg Morphine No Notes: Memoria 08-17 (Same l 04:23: as:MORPhin e Sulfate) Morphine No 4 mg, Memoria 08-17 Route: l 03:01: IVP, ONCE, [place] 00 Dosing Weight 72.727, kg, Priority: STAT, Start date: 08/16/16 22:01:00 CDT, Stop date: 08/16/16 22:01:00 CDT Ondansetron No 4 mg, Memor ia 08-17 Route: l 03:01: IVP, ONCE, River 00 Dosing Weight 72.727, kg, Priority: STAT, Start date: 08/16/16 22:01:00 CDT, Stop date: 08/16/16 22:01:00 CDT Saline No Notes: Memoria Flush 0.9% 08-17 (Same as: l 03:01: BD [place] 00 Posiflush) estradiol Yes [id number] .5mg Take 1 U nivers 0.5 mg 5-16 tablet by ity of tablet 00:00: mouth [place] 00 daily. [facility] estradiol Yes [id number] .5mg Take 1 U nivers 0.5 mg 5-16 tablet by ity of tablet 00:00: mouth [place] 00 daily. [facility] estradiol Yes [id number] .5mg Take 1 U nivers 0.5 mg 5-16 tablet by ity of tablet 00:00: mouth [place] 00 daily. [facility] estradiol Yes [id number] .5mg Take 1 U nivers 0.5 mg 5-16 tablet by ity of tablet 00:00: mouth [place] 00 daily. [facility] Promethazin Yes 12.5 mg = M emoria e 5-11 1 tab, PO, l Hydrochlori 03:59: Q6H, PRN He rmelizabet de 12.5 MG 00 Nausea & Oral Tablet Vomiting, [Phenergan] X 5 day, # 20 tab, 0 Refill(s) Famotidine Yes 20 mg = 1 Me moria 20 MG Oral 5-11 tab, PO, l Tablet 03:59: BID, # 14 Luke n [Pepcid] 00 tab, 0 Refill(s) Metoclopram Yes 10 mg = 1 M emoria talat 10 MG 5-11 tab, PO, l Oral Tablet 03:59: Q8H, PRN He rmelizabet [Reglan] 00 Nausea & Vomiting, X 7 day, # 21 tab, 0 Refill(s) ciprofloxac Yes 500 mg = 1 Memoria in 500 mg 5-11 tab, PO, l oral tablet 03:43: Q12H, X 7 H ermann day, # 14 tab, 0 Refill(s) Acetaminoph Yes 1 tab, PO, Memoria en 300 MG / 5-11 Q6H, PRN l Codeine 03:43: Pain, X 4 Rena nn Phosphate 00 day, # 16 30 MG Oral tab, 0 Tablet Refill(s) [Tylenol with Codeine #3] GI cocktail No Notes: Solomon lashaun 5-11 G.I. l 02:34: Cocktail = antacid with simethicon e 22.5 mL - lidocaine viscous 7.5 mL Sodium Yes 1,000 mL, Memori a Chloride 5-11 1000 l 0.154 02:29: ml/hr, River MEQ/ML 00 Infuse Injectable Over: 1 Solution hr, Route: IV, 1,000, Drug form: INJ, ONCE, Priority: STAT, Dosing Weight 77.273 kg, Start date: 06/25/16 21:29:00 CDT, Duration: 1 doses or times, Stop date: 06/25/16 21:29:00 CDT Promethazin No Notes: Do M emoria e 5-11 not give l 02:28: IV push. [place] 00 (Same as: Phenergan) Zofran No Notes: Memoria 5-11 (Same as: l 01:21: Zofran) River 00 MEDICATION WASTE Product Size: 4 mg Product Wasted: ___ mg Sodium No 1,000 mL, Memori a Chloride 5-10 1000 l 0.154 22:22: ml/hr, River MEQ/ML 00 Infuse Injectable Over: 1 Solution hr, Route: IV, 1,000, Drug form: INJ, ONCE, Priority: STAT, Dosing Weight 77.273 kg, Start date: 06/25/16 17:22:00 CDT, Duration: 1 doses or times, Stop date: 06/25/16 17:22:00 CDT Ondansetron No Notes: Solomon lashaun 5-10 (Same as: l 22:19: Zofran) [place] 00 MEDICATION WASTE Product Size: 4 mg Product Wasted: ___ mg Morphine No Notes: Memoria 5-10 (Same l 22:19: as:MORPhin [place] 00 e Sulfate) Saline No Notes: Memoria Flush 0.9% 5-10 (Same as: l 22:19: BD [place] Posiflush) Saline No Notes: Memoria Flush 0.9% 4-19 (Same as: l 00:10: BD [place] Posiflush) tramadol Yes 50 mg = 1 Solomon lashaun hydrochlori 3-29 tab, PO, l de 50 MG 22:40: Q8H, PRN Rena nn Oral Tablet 00 Pain, X 7 day, # 21 tab, 0 Refill(s) Metoclopram 2017-0 Yes 10 mg = 1 M emoria talat 10 MG 3-29 tab, PO, l Oral Tablet 22:40: QID-Before [place] [Reglan] 00 Meals, PRN nausea and vomiting, X 10 day, # 40 tab, 0 Refill(s) pantoprazol Yes 40 mg = 1 M emoria e 40 MG 3-29 tab, PO, l Enteric 22:39: Daily, # Luke n Coated 00 30 tab, 0 Tablet Refill(s) [Protonix] Famotidine No Notes: Memor ia 3-29 (Same as: l 21:35: Pepcid) Can be dilute in 5-10cc NS IVP: Slow IV push over at least 2 minutes. Reglan No Notes: Memoria 3-29 (Same as: l 21:35: Reglan) [place] 00 GI cocktail No Notes: Solomon lashaun 3-29 G.I. l 20:45: Cocktail = antacid with simethicon e 22.5 mL - lidocaine viscous 7.5 mL Sodium No 1,000 mL, Memori a Chloride - 1000 l 0.154 20:32: ml/hr, [place] MEQ/ML 00 Infuse Injectable Over: 1 Solution hr, Route: IV, 1,000, Drug form: INJ, ONCE, Priority: STAT, Dosing Weight 79.545 kg, Start date: 05/14/16 15:32:00 CDT, Duration: 1 doses or times, Stop date: 05/14/16 15:32:00 CDT Zofran No Notes: Memoria 3-29 (Same as: l 20:32: Zofran) MEDICATION WASTE Product Size: 4 mg Product Wasted: ___ mg Morphine No Notes: Memoria 3-29 (Same l 20:32: as:MORPhin [place] 00 e Sulfate) Zofran No 4 mg, Memoria 3-29 Route: l 19:33: IVP, Drug form: INJ, ONCE, Dosing Weight 79.545, kg, Priority: STAT, Start date: 05/14/16 14:33:00 CDT, Stop date: 05/14/16 14:33:00 CDT Saline No Notes: Memoria Flush 0.9% - (Same as: l 18:52: BD [place] 00 Posiflush) [facility] 2015-02 Yes 1 tab, PO, Memoria en 300 MG / 02-23 Q6H, PRN l Codeine 17:18: Pain, X 7 Rena nn Phosphate 00 day, # 28 30 MG Oral tab, 0 Tablet Refill(s) [Tylenol with Codeine #3] tramadol 2015-02 Yes 50 mg = 1 Solomon lashaun hydrochlori -08 tab, PO, l de 50 MG 17:06: BID, X 15 Herm elizabet Oral Tablet 00 day, # 30 tab, 0 Refill(s) Ondansetron 2015-02 Yes 4 mg = 1 Me moria 4 MG 08 tab, PO, l Disintegrat 17:06: BID, PRN He rmann ing Tablet 00 Nausea and [Zofran] Vomiting, Dissolve tab under tongue, X 5 day, # 10 tab, 0 Refill(s), Pharmacy: [id number] 2015-02 No 1 tab, PO, Memoria en 325 MG / 02-23 Q4H, PRN l Hydrocodone 17:06: Pain Score [place] Bitartrate 00 4-6, X 5 5 MG Oral day, # 30 Tablet tab, 0 Refill(s) pneumococca 2015-02 No Notes: Solomon lashaun l capsular 02-22 (Same as: l polysacchar 22:00: Pneumovax H ermann talat type 1 00 23) vaccine / Refrigerat pneumococca e l capsular polysacchar talat type 10A vaccine / pneumococca l capsular polysacchar talat type 11A vaccine / pneumococca l capsular polysacchar talat type 12F vaccine / pneumococca l capsular polysacchar Dilaudid 2015-02 No Notes: Memoria 02-22 Same as: l 16:17: Dilaudid Fentanyl 2015-02 No Notes: Memoria 02-22 (Same as: l 16:16: Sublimaze) Preservati ve free. neostigmine 2015-02 No Route: IV, Memoria (ANES) 02-22 Drug form: l 15:47: INJ, ONCE, Stop date: 12/24/15 9:47:00 CAMPUS COORDINATOR glycopyrrol 2015-02 No Route: IV, Memoria ate (ANES) 02-22 Drug form: l 15:47: INJ, ONCE, Kin[place] 00 Stop date: 12/24/15 9:47:00 CAMPUS COORDINATOR Meperidine 2015-02 No 12.5 mg, Mem oria 02-22 Route: l 15:46: IVP, River 00 Q30Min, Dosing Weight 80.909, kg, PRN Other -See Comment, For shivering, Start date: 12/24/15 9:46:00 CAMPUS COORDINATOR, Duration: 2 doses or times, Stop date: Limited # of times Diphenhydra 2015-02 No 12.5 mg, Me moria mine 02-22 Route: l 15:46: IVP, Drug [place] 00 form: INJ, Q6H, Dosing Weight 80.909, kg, PRN Itching, Start date: 12/24/15 9:46:00 CAMPUS COORDINATOR, Duration: 30 day, Stop date: 01/23/16 9:45:00 CAMPUS COORDINATOR Promethazin 2015-02 No 6.25 mg, Me moria e 02-22 Route: l 15:46: IVPB, [place] 00 ONCE, Dosing Weight 80.909, kg, PRN Nausea & Vomiting, Start date: 12/24/15 9:46:00 CAMPUS COORDINATOR Ondansetron 2015-02 No 4 mg, Memor ia 02-22 Route: l 15:46: IVP, ONCE, [place] 00 Dosing Weight 80.909, kg, PRN Nausea & Vomiting, Start date: 12/24/15 9:46:00 CAMPUS COORDINATOR Morphine 2015-02 No 2 mg, Memoria 02-22 Route: l 15:46: IVP, [place] 00 Q5Min, Dosing Weight 80.909, kg, PRN Pain Score 4-6, Start date: 12/24/15 9:46:00 CAMPUS COORDINATOR, Duration: 5 doses or times, Stop date: Limited # of times Flumazenil 2015-02 No 0.2 mg, Solomon lashaun 02-22 Route: l 15:46: IVP, PRN, [place] 00 Dosing Weight 80.909, kg, PRN Benzodiaze pine Reversal, Initial dose, Start date: 12/24/15 9:46:00 CAMPUS COORDINATOR, Duration: 30 day, Stop date: 01/23/16 9:45:00 CAMPUS COORDINATOR Naloxone 2015-02 No 0.4 mg, Memori a 02-22 Route: l 15:46: IVP, [place] 00 Q2MIN, Dosing Weight 80.909, kg, PRN Narcotic Reversal, Start date: 12/24/15 9:46:00 CAMPUS COORDINATOR, Duration: 8 doses or times, Stop date: Limited # of times Metoprolol 2015-02 No 1 mg, Memori a 02-22 Route: l 15:46: IVP, [place] 00 Q5Min, Dosing Weight 80.909, kg, PRN Other -See Comment, Start date: 12/24/15 9:46:00 CAMPUS COORDINATOR, Duration: 5 doses or times, Stop date: Limited # of times ondansetron 2015-02 No Route: IV, Memoria (ANES) 02-22 Drug form: l 15:34: INJ, ONCE, Stop date: 12/24/15 9:34:00 CAMPUS COORDINATOR acetaminoph 2015-02 No Route: IV, Memoria en (ANES) 02-22 Drug form: l 15:19: INJ, ONCE, Stop date: 12/24/15 9:19:00 CAMPUS COORDINATOR metoclopram 2015-02 No Route: IV, Memoria talat (ANES) 02-22 Drug form: l 15:19: INJ, ONCE, Stop date: 12/24/15 9:19:00 CAMPUS COORDINATOR dexamethaso 2015-02 No Route: IV, Memoria ne (ANES) 02-22 Drug form: l 15:19: INJ, ONCE, Stop date: 12/24/15 9:19:00 CAMPUS COORDINATOR fentaNYL 2015-02 No Route: IV, Mem oria (ANES) 02-22 Drug form: l 14:49: INJ, ONCE, Stop date: 12/24/15 8:49:00 CAMPUS COORDINATOR lidocaine 2015-02 No Route: IV, Me moria (ANES) 02-22 Drug form: l 14:49: INJ, ONCE, Stop date: 12/24/15 8:49:00 CAMPUS COORDINATOR propofol 2015-02 No Route: IV, Mem oria (ANES) 02-22 Drug form: l 14:49: INJ, ONCE, Stop date: 12/24/15 8:49:00 CAMPUS COORDINATOR rocuronium 2015-02 No Route: IV, M emoria (ANES) 02-22 Drug form: l 14:49: INJ, ONCE, Stop date: 12/24/15 8:49:00 CAMPUS COORDINATOR LR 1000 mL 2015-02 No Route: IV, M emoria INJ (ANES) 02-22 Total l 13:30: Volume: River 00 1,000, Start date: 12/24/15 7:30:00 CAMPUS COORDINATOR, Stop date: 12/24/15 8:30:00 CAMPUS COORDINATOR Calcium 2015-02 No 1,000 mL, Memor ia Chloride 02-22 Rate: 25 l 0.0014 13:21: ml/hr, Kin[place] MEQ/ML / 00 Infuse Potassium over: 40 Chloride hr, Route: 0.004 IV, Dosing MEQ/ML / Weight Sodium 80.909 kg, Chloride Total 0.103 Volume: MEQ/ML / 1,000, Sodium Start Lactate date: 0.028 12/24/15 MEQ/ML 7:21:00 Injectable CAMPUS COORDINATOR, Solution Duration: 30 day, Stop date: 01/23/16 7:20:00 CAMPUS COORDINATOR Benadryl 2015-02 No 25 mg, 1 Memor ia 07 tab, l 04:00: Route: PO, Drug form: TAB, ONCE, Dosing Weight 80.909, kg, Start date: 12/23/15 22:00:00 CAMPUS COORDINATOR, Stop date: 12/23/15 22:00:00 CAMPUS COORDINATOR Lovenox 2015-02 No Notes: Memoria 1-06 (Same as: l 00:00: Lovenox) Dilaudid 2015-02 No Notes: Memoria 1-04 Same as: l 22:55: Dilaudid influenza 2015-02 No Notes: Memori a virus 1-03 (Same as: l vaccine, 14:00: Fluzone Luke n inactivated 00 Quadrivale nt, Fluarix Quadrivale nt) For 3 years of age and older (0.5 mL IM) Shake well before use Protonix 2015-02 No Notes: Memoria 1-02 Tablet l 21:30: should not be chewed or crushed. (Same as: Protonix) Hydromorpho 2015-02 No 1 mg, Memor ia ne 02-17 Route: l 15:36: IVP, Q4H, Dosing Weight 80.909, kg, PRN Pain Score 7-10, Start date: 12/19/15 10:36:00 CDT, Duration: 30 day, Stop date: 01/18/16 10:35:00 CAMPUS COORDINATOR Dilaudid 2015-02 No Notes: Memoria 02-17 Same as: l 14:47: Dilaudid Dicyclomine 2015-02 No Notes: Solomon lashaun 02-17 (Same as: l 14:00: Bentyl) Famotidine 2015-02 No Notes: Memor ia 40 MG Oral 02-17 (Same as: l Tablet 14:00: Pepcid) [Pepcid] 00 Promethazin 2015-02 No Notes: Do M emoria e 02-17 not give l 12:37: IV push. (Same as: Phenergan) influenza 2015-02 No Notes: Memori a virus 02-17 (Same as: l vaccine, 05:00: Fluzone Luke n inactivated 00 Quadrivale nt, Fluarix Quadrivale nt) For 3 years of age and older (0.5 mL IM) Shake well before use Saline 2015-02 No Notes: Memoria Flush 0.9% 02-17 preservati l 03:53: ve free. Sodium 2015-02 No 1,000 mL, Memori a Chloride 02-17 Rate: 125 l 0.154 03:53: ml/hr, [place] MEQ/ML 00 Infuse Injectable over: 8 Solution hr, Route: IV, Dosing Weight 79.545 kg, Total Volume: 1,000, Start date: 12/18/15 22:53:00 CDT, Duration: 30 day, Stop date: 01/17/16 22:52:00 CAMPUS COORDINATOR Morphine 2015-02 No Notes: Memoria 02-17 (Same l 03:53: as:MORPhin e Sulfate) Ondansetron 2015-02 No Notes: Solomon lashaun 02-17 (Same as: l 03:53: Zofran) MEDICATION WASTE Product Size: 4 mg Product Wasted: ___ mg Acetaminoph 2015-02 No Notes: Do M emoria en 02-17 not exceed l 03:53: 4 gm/day. [place] 00 (Same as: Tylenol) Acetaminoph 2015-02 No Notes: Solomon lashaun en 325 MG / 02-17 (Same as: l Hydrocodone 03:53: [place] Rena nn Bitartrate 00 325/5) Do 5 MG Oral not exceed Tablet 4gm/day of acetaminop hen. Lactated 2015-02 No 1,000 mL, Solomon lashaun Ringers 02-17 Rate: 999 l 1,000 mL 02:56: ml/hr, [place] 00 Infuse over: 1 hr, Route: IV, Dosing Weight 79.545 kg, Total Volume: 1,000, Start date: 12/18/15 21:56:00 CDT, Duration: 30 day, Stop date: 01/17/16 20:55:00 CAMPUS COORDINATOR Dilaudid 2015-02 No Notes: Memoria 02-17 Same as: l 02:55: Dilaudid Kin[place] 00 Acetaminoph 2015-02 No Notes: Do M emoria en 325 MG / 02-17 not exceed l Hydrocodone 00:18: 4gm/day of River Bitartrate 00 acetaminop 10 MG Oral hen. (Same Tablet as: [place] [[place] 325/10) 10325] Morphine 2015-02 No Notes: Memoria 02-16 (Same l 22:01: as:MORPhin [place] 00 e Sulfate) Ketorolac 2015-02 No 30 mg, Memori a 02-16 Route: l 19:30: IVP, Drug form: INJ, ONCE, Dosing Weight 79.545, kg, Priority: STAT, Start date: 12/18/15 14:30:00 CDT, Stop date: 12/18/15 14:30:00 CDT Saline 2015-02 No Notes: Memoria Flush 0.9% 02-16 (Same as: l 19:09: BD [place] 00 Posiflush) dicyclomine 2015-02 Yes 20mg Take 1 Univ [...] as needed for Nausea and Vomiting (N/V). Acetaminoph No 1 - 2 tab, Memoria en 300 MG / 09-20 PO, Q4H, l Codeine 12:38: PRN Pain, Rena nn Phosphate 00 X 2 day, # 30 MG Oral 15 tab, 0 Tablet Refill(s) [Tylenol with Codeine #3] potassium No Notes: Memori a chloride 09-20 (Same as: l 12:32: K-Dur 20) Kinney 00 "Do Not Crush" With food and full glass of water Morphine No Notes: Memoria 09-20 (Same l 11:44: as:MORPhin [place] 00 e Sulfate) Metoclopram No Notes: Solomon lashaun talat 09-20 (Same as: l 10:12: Reglan) River 00 Famotidine No Notes: Memor ia 09-20 (Same as: l 10:12: Pepcid) Can be dilute in 5-10cc NS IVP: Slow IV push over at least 2 minutes. Morphine No Notes: Memoria 09-20 (Same l 10:12: as:MORPhin [place] 00 e Sulfate) Saline No Notes: Memoria Flush 0.9% 09-20 (Same as: l 10:12: BD [place] 00 Posiflush) Sodium No 1,000 mL, Memori a Chloride 09-20 2,000 l 0.154 10:12: ml/hr, River MEQ/ML 00 Infuse Injectable Over: 30 Solution minutes, Route: IV, 1,000, Drug form: INJ, ONCE, Priority: STAT, Dosing Weight 77.273 kg, Start date: 09/21/15 5:12:00 CDT, Duration: 1 doses or times, Stop date: 09/21/15 5:12:00 CDT dicyclomine Yes 10 mg = 1 M emoria 10 mg oral 6-27 cap, PO, l capsule 13:04: TID, # 9 Luke n 00 cap, 0 Refill(s) promethazin No 25 mg = 1 M emoria e 25 mg 6-27 tab, PO, l oral tablet 13:03: Q6H, PRN He rmann 00 Nausea & Vomiting, # 12 tab, 0 Refill(s) tramadol No 1 - 2 Memoria hydrochlori 6-27 tabs, PO, l de 50 MG 13:03: Q4-6H, PRN Her montelongo Oral Tablet 00 as needed [Ultram] for pain, # 12 tab, 0 Refill(s) Valium No Notes: Memoria - (Same as: l 11:59: Valium) WASTE: F/P - Black; E - White/Blue Morphine No Notes: Memoria 08-12 (Same l 11:59: as:MORPhin [place] 00 e Sulfate) Phenergan No Notes: Do Mem oria 6-27 not give l 11:18: IV push. Kinney (Same as: Phenergan) Morphine No 4 mg, Memoria 6-27 Route: l 09:22: IVP, ONCE, Dosing Weight 84.091, kg, Priority: STAT, Start date: 08/13/15 4:22:00 CDT, Stop date: 08/13/15 4:22:00 CDT Ondansetron No 4 mg, Memor ia 08-12 Route: l 09:22: IVP, ONCE, Dosing Weight 84.091, kg, Priority: STAT, Start date: 08/13/15 4:22:00 CDT, Stop date: 08/13/15 4:22:00 CDT Sodium No 1,000 mL, Memori a Chloride 08-12 2,000 l 0.154 09:22: ml/hr, Kinney MEQ/ML 00 Infuse Injectable Over: 30 Solution minutes, Route: IV, ONCE, Priority: STAT, Dosing Weight 84.091 kg, Start date: 08/13/15 4:22:00 CDT, Duration: 1 doses or times, Stop date: 08/13/15 4:22:00 CDT Saline No Notes: Memoria Flush 0.9% 08-12 (Same as: l 09:22: BD Posiflush) Ondansetron No Notes: Solomon lashaun -25 (Same as: l 02:43: Zofran) MEDICATION WASTE Product Size: 4 mg Product Wasted: ___ mg Morphine No Notes: Memoria 6-25 (Same l 02:43: as:MORPhin [place] 00 e Sulfate) Aluminum No 10 mL, PO, Mem oria Hydroxide 6-25 QID, # 150 l 80 MG/ML / 02:05: mL, 0 Luke n Magnesium 00 Refill(s) Hydroxide 80 MG/ML / Simethicone 8 MG/ML Oral Suspension [Maalox Max] pantoprazol Yes 40 mg = 1 M emoria e 40 MG 6-25 tab, PO, l Enteric 02:05: Daily, # Luke n Coated 00 30 tab, 0 Tablet Refill(s) [Protonix] Acetaminoph Yes 1 tab, PO, Memoria en 300 MG / 6-25 Q6H, PRN l Codeine 02:04: Pain, X 4 Rena nn Phosphate 00 day, # 16 30 MG Oral tab, 0 Tablet Refill(s) [Tylenol with Codeine #3] Promethazin Yes 25 mg = 1 M emoria e 6-25 tab, PO, l Hydrochlori 02:04: Q6H, PRN He rmann de 25 MG 00 Nausea, X Oral Tablet 4 day, # [Phenergan] 16 tab, 0 Refill(s) Reglan No Notes: Memoria 6-25 (Same as: l 00:34: Reglan) River 00 pantoprazol No Notes: For Memoria e 6-25 IV push l 00:34: reconstitu Kinney te with 10 ml 0.9% sodium chloride and push over 2 minutes. (Same as: Protonix) Sodium No 1,000 mL, Memori a Chloride 25 1,000 l 0.154 00:34: ml/hr, River MEQ/ML 00 Infuse Injectable Over: 1 Solution hr, Route: IV, 1,000, Drug form: INJ, ONCE, Priority: STAT, Dosing Weight 84.091 kg, Start date: 08/10/15 19:34:00 CDT, Duration: 1 doses or times, Stop date: 08/10/15 19:34:00 CDT Lorazepam No Notes: Memori a -25 (Same as: l 00:34: Ativan) River Reglan No Notes: Memoria 624 (Same as: l 23:50: Reglan) River Lorazepam No Notes: Memori a 6-24 (Same as: l 23:50: Ativan) [place] Sodium No 1,000 mL, Memori a Chloride 24 1,000 l 0.154 23:50: ml/hr, [place] MEQ/ML 00 Infuse Injectable Over: 1 Solution hr, Route: IV, 1,000, Drug form: INJ, ONCE, Priority: STAT, Dosing Weight 84.091 kg, Start date: 08/10/15 18:50:00 CDT, Duration: 1 doses or times, Stop date: 08/10/15 18:50:00 CDT pantoprazol No Notes: For Memoria e 6-24 IV push l 23:50: reconstitu River te with 10 ml 0.9% sodium chloride and push over 2 minutes. (Same as: Protonix) Morphine No Notes: Memoria 6-24 (Same l 22:14: as:MORPhin [place] e Sulfate) Ondansetron No Notes: Solomon lashaun 6-24 (Same as: l 22:14: Zofran) River MEDICATION WASTE Product Size: 4 mg Product Wasted: ___ mg Saline No Notes: Memoria Flush 0.9% -24 (Same as: l 22:14: BD [place] 00 Posiflush) Ondansetron Yes 4 mg = 1 Me moria 4 MG 6-13 tab, PO, l Disintegrat 21:02: BID, PRN He rmann ing Tablet 00 Nausea and [Zofran] Vomiting, Dissolve tab under tongue, X 5 day, # 10 tab, 0 Refill(s) Acetaminoph No 1 - 2 tab, Memoria en 300 MG / 6-13 PO, Q4H, l Codeine 20:58: PRN Pain, Rena nn Phosphate 00 X 2 day, # 30 MG Oral 20 tab, 0 Tablet Refill(s) [Tylenol with Codeine #3] Wellbutrin No Notes: Do Me moria SR 6-13 not crush l 14:30: or chew. River 00 (Same As: Wellbutrin SR) Seroquel No Notes: Memoria 6-13 (Same as: l 14:30: SEROquel) River 00 GI cocktail No Notes: Solomon lashaun 6-13 G.I. l 14:09: Cocktail = Kin[place] 00 antacid with simethicon e 22.5 mL - lidocaine viscous 7.5 mL pantoprazol No Notes: Solomon lashaun e 6-13 Tablet l 12:30: should not Kin[place] 00 be chewed or crushed. (Same as: Protonix) Docusate No Notes: Memoria 6-13 (Same as: l 06:09: Colace) Kinney 00 (Do Not Crush) quetiapine Yes 50 mg = 1 Me moria 50 MG Oral 6-13 tab, PO, l Tablet 04:41: Daily, # River [Seroquel] 00 60 tab, 0 Refill(s) Oxycodone No Notes: Memori a Hydrochlori - (Same as: l de 5 MG 04:30: Roxicodone Herm elizabet Oral Tablet 00 ) Morphine No Notes: Memoria 6-13 (Same l 04:30: as:MORPhin [place] 00 e Sulfate) Ondansetron No Notes: Solomon lashaun -13 (Same as: l 04:30: Zofran) Kin[place] 00 MEDICATION WASTE Product Size: 4 mg Product Wasted: ___ mg Saline No Notes: Memoria Flush 0.9% 07-29 (Same as: l 04:30: BD [place] 00 Posiflush) Sodium No 1,000 mL, Memori a Chloride - Rate: 125 l 0.154 04:30: ml/hr, [place] MEQ/ML 00 Infuse Injectable over: 8 Solution hr, Route: IV, Dosing Weight 83.591 kg, Total Volume: 1,000, Start date: 07/29/15 23:30:00 CDT, Duration: 30 day, Stop date: 08/28/15 23:29:00 CDT Tylenol No Notes: Memoria 6-13 Infuse l 03:04: over 15 River 00 minutes Do not exceed 4gm/day of acetaminop hen MEDICATION WASTE Product Size: 1000 mg Product Wasted: ___ mg Bentyl No Notes: Memoria 6-13 (Same as: l 02:12: Bentyl) [place] 00 Reglan No Notes: Memoria 6-13 (Same as: l 02:12: Reglan) [place] 00 Phenergan No Notes: Do Mem oria 6-13 not give l 00:16: IV push. Kinney 00 (Same as: Phenergan) Famotidine Yes 40 mg = 1 Me moria 40 MG Oral 6-13 tab, PO, l Tablet 00:08: Daily, # Kinney [Pepcid] 00 30 tab, 3 Refill(s) GI cocktail No Notes: Solomon lashaun 6-13 G.I. l 00:07: Cocktail = [place] 00 antacid with simethicon e 22.5 mL - lidocaine viscous 7.5 mL Ondansetron No Notes: Solomon lashaun 6-12 (Same as: l 22:13: Zofran) Kin[place] 00 MEDICATION WASTE Product Size: 4 mg Product Wasted: ___ mg Morphine No Notes: Memoria -12 (Same l 22:13: as:MORPhin [place] 00 e Sulfate) Saline No Notes: Memoria Flush 0.9% 07-28 (Same as: l 22:13: BD [place] 00 Posiflush) Sodium No 1,000 mL, Memori a Chloride 07-28 2,000 l 0.154 22:13: ml/hr, [place] MEQ/ML 00 Infuse Injectable Over: 30 Solution minutes, Route: IV, 1,000, Drug form: INJ, ONCE, Priority: STAT, Dosing Weight 84.091 kg, Start date: 07/29/15 17:13:00 CDT, Duration: 1 doses or times, Stop date: 07/29/15 17:13:00 CDT tramadol Yes 50 mg = 1 Solomon lashaun hydrochlori 6-11 tab, PO, l de 50 MG 17:07: BID, X 15 Herm elizabet Oral Tablet 00 day, # 30 tab, 0 Refill(s) Morphine No Notes: Memoria 6-11 (Same l 16:54: as:MORPhin [place] 00 e Sulfate) Morphine No Notes: Memoria 6-11 (Same l 15:16: as:MORPhin [place] 00 e Sulfate) Ondansetron No Notes: Solomon lashaun 6-11 (Same as: l 15:16: Zofran) [place] 00 MEDICATION WASTE Product Size: 4 mg Product Wasted: ___ mg Sodium No 1,000 mL, Memori a Chloride 6-11 2,000 l 0.154 15:16: ml/hr, Kin[place] MEQ/ML 00 Infuse Injectable Over: 30 Solution minutes, Route: IV, 1,000, Drug form: INJ, ONCE, Priority: STAT, Dosing Weight 84.091 kg, Start date: 07/28/15 10:16:00 CDT, Duration: 1 doses or times, Stop date: 07/28/15 10:16:00 CDT Saline No Notes: Memoria Flush 0.9% 11 (Same as: l 15:16: BD [place] 00 Posiflush) venlafaxine Yes MDD (major Week 1: Rodriguez (EFFEXOR 6-23 depressive Take one H ealth XR) 75 mg 00:00: disorder) capsule by extended 00 mouth release daily. capsule Week 2: Take 2 capsules daily. Week 3: Take 3 capsules by mouth daily.. traZODone Yes Insomnia, 100mg Take 1 Rodriguez (DESYREL) 5-16 unspecified tablet by [facility] 100 mg 00:00: mouth at tablet 00 bedtime nightly. lisinopril Yes HTN 10mg QD Take 1 Harri s (PRINIVIL) 5-16 (hypertensi tablet by [facility] 10 mg 00:00: on) mouth tablet 00 daily. rOPINIRole Yes Restless .5mg Take 1 H arris (REQUIP) 5-16 Leg tablet by [facility] 0.5 mg 00:00: Syndrome mouth at tablet 00 bedtime nightly. naproxen Yes Pelvic pain 500mg Q.5D Take 1 Rodriguez (NAPROSYN) 4-18 tablet by [facility] 500 mg 00:00: mouth 2 tablet 00 times daily (with meals). omeprazole Yes 20mg QD Take 1 Harri s (PRILOSEC) 4-18 capsule by [facility] 20 mg 00:00: mouth delayed 00 daily. release capsule Bentyl 20 Yes Frannie 20 mg = 1 Memoria mg oral 1-06 Jonee tab, PO, l tablet 23:50: Tu QID, # 28 Her montelongo 00 tab, 0 Refill(s) omeprazole Yes Frannie 40 mg = 1 Memoria 40 mg oral 1-06 Jonee cap, PO, l delayed 23:50: Mae Daily, # Her montelongo release 00 30 cap, 0 capsule Refill(s) Zofran 4 mg Yes Frannie 4 mg = 1 Memoria oral tablet 02-21 Jonee tab, PO, l 23:49: Mae Q8H, as Kinney 00 needed for nausea/vom iting, # 15 tab, 0 Refill(s) Bentyl No Frannie 20 mg, Memori a 02-21 Jonee Route: IM, l 21:21: Mae ONCE, Kinney 00 Dosing Weight 81.818, kg, Start date: 02/21/13 15:21:00, Stop date: 02/21/13 15:21:00 Sodium No Frannie 1,000 mL, Mem oria Chloride 02-21 Jonee Rate: l 0.9% 21:21: Mae 1,000 Kinney (Bolus) IV 00 ml/hr, 1000 mL Infuse over: 1 hr, Route: IV, Dosing Weight 81.818 kg, Total Volume: 1,000, Priority: STAT, Start date: 02/21/13 15:21:00, Duration: 1 doses or times, Stop date: 02/21/13 16:20:00 Saline No Frannie 5 mL, Memoria Flush 0.9% 02-21ne Route: l 21:21: Mae IVP, Drug Rena nn 00 Form: INJ, Dosing Weight 81.818, kg, PRN, PRN Line Flush, Start date: 02/21/13 15:21:00, Duration: 24 hr, Stop date: 02/22/13 15:20:00Sa me as: BD Posiflush Sterile ondansetron No Frannie 4 mg, Me moria 02-21 Jonee Route: l 21:21: Mae IVP, ONCE, Herm elizabet Dosing Weight 81.818, kg, Priority: STAT, Start date: 02/21/13 15:21:00, Stop date: 02/21/13 15:21:00 Zofran 4 mg 2012-02 Yes Dioni G 4 mg = 1 Memoria oral tablet 2-05 Smith tab, PO, l 23:48: TID, # 10 River 00 tab, 0 Refill(s) Bentyl 20 2012-02 Yes Dioni G 20 mg = 1 Memoria mg oral 2-05 Smith tab, PO, l tablet 23:48: QID, # 28 Luke n 00 tab, 0 Refill(s) NS (Bolus) 2012-02 No Dioni G 1,000 mL, Memoria IV 1,000 mL 2-05 Smith Rate: l 20:26: 1,000 Kinney 00 ml/hr, Infuse over: 1 hr, Route: IV, Dosing Weight 81.818 kg, Total Volume: 1,000, Priority: STAT, Start date: 01/20/13 14:26:00, Duration: 1 doses or times, Stop date: 01/20/13 15:25:00, Bolus DoseBolus Dose morphine 2012-02 No Dioni G 4 mg, Memor ia Sulfate 2-05 Smith Route: l 19:31: IVP, Drug River 00 form: INJ, ONCE, Dosing Weight 81.818, kg, Priority: STAT, Start date: 01/20/13 13:31:00, Stop date: 01/20/13 13:31:00 Zofran 2012-02 No Dioni G 4 mg, Memoria 2-05 Smith Route: l 19:31: IVP, Drug River 00 form: INJ, ONCE, Dosing Weight 81.818, kg, Priority: STAT, Start date: 01/20/13 13:31:00, Stop date: 01/20/13 13:31:00 Phenergan 2012-02 No Dioni G 12.5 mg, M emoria 2-05 Smith Route: l 19:31: IVPB, Kinney 00 ONCE, Dosing Weight 81.818, kg, Priority: STAT, Start date: 01/20/13 13:31:00, Stop date: 01/20/13 13:31:00 NS 1,000 mL 2012-02 No Dioni G 1,000 mL, Memoria 2-05 Smith Rate: 150 l 19:30: ml/hr, Kinney 00 Infuse over: 6.7 hr, Route: IV, Dosing Weight 81.818 kg, Total Volume: 1,000, Start date: 01/20/13 13:30:00, Duration: 30 day, Stop date: 02/19/13 13:29:00 NS (Bolus) 2012-02 No Dioni G 1,000 mL, Memoria IV 1000 mL 2-05 Smith Rate: l 19:30: 1,000 Kinney 00 ml/hr, Infuse over: 1 hr, Route: IV, Dosing Weight 81.818 kg, Total Volume: 1,000, Priority: STAT, Start date: 01/20/13 13:30:00, Duration: 1 doses or times, Stop date: 01/20/13 14:29:00, Bolus DoseBolus Dose Carafate 1 2012-02 Yes Clayton 1 gm, 10 Mem oria g/10 mL 1-22 Arnoldo ml, PO, l oral 18:25: Trung QID-Before River suspension 53 Meals, 1200 mL, Substituti on Allowed pantoprazol 2012-02 Yes Clayton 40 mg, 1 Me moria e 40 mg 1-22 Arnoldo tab, PO, l oral 18:25: Trung Q12H, 60 River enteric 25 tab, coated Substituti tablet on Allowed, ECTAB Zofran 4 mg 2012-02 Yes Clayton 4 mg, 1 Mem oria oral tablet 1-22 Arnoldo tab, PO, l 18:24: Trung Q6H, PRN, River 42 15 tab, as needed for nausea/vom iting, Substituti on Allowed Protonix 2012-02 No Clayton 40 mg, 1 Memor ia 1-22 Arnoldo tab, l 03:00: Trung Route: PO, River 00 Drug form: ECTAB, Q12H, Start date: 01/06/13 21:00:00, Duration: 30 day, Stop date: 02/05/13 9:00:00Tab let should not be chewed or crushed. (Same as: Protonix) Lactated 2012-02 No Melba C 1,000 mL, Me moria Ringers -21 Maxian Rate: 25 l Injection 01:48: ml/hr, Luke n IV 1,000 mL 00 Infuse over: 40 hr, Route: IV, Dosing Weight 84.091 kg, Total Volume: 1,000, Start date: 01/05/13 19:48:00, Duration: 30 day, Stop date: 02/04/13 19:47:00 Reglan 2012-02 No Clayton 10 mg, 2 Memoria 1-20 Arnoldo mL, Route: l 18:00: Trung IVP, Drug form: INJ, Q6H, Dosing Weight 84.091, kg, Start date: 01/05/13 12:00:00, Duration: 30 day, Stop date: 02/04/13 6:00:00(Sa md as: Reglan) Abilify 2012-02 No Clayton 10 mg, 2 Memori a 1-20 Arnoldo tab, l 15:00: Trung Route: PO, Kinney 00 Drug form: TAB, Daily, Dosing Weight 84.091, kg, Start date: 01/05/13 9:00:00, Duration: 30 day, Stop date: 02/03/13 9:00:00Non -Formulary Drug. (Same as: Abilify) Protonix 2012-02 No Clayton 40 mg, Memoria 1-20 Arnoldo Route: l 03:00: Trung IVP, Drug form: INJ, Q12H, Dosing Weight 84.091, kg, Patient is NPO, Start date: 01/04/13 21:00:00, Duration: 30 day, Stop date: 02/03/13 9:00:00For IV push reconstitu te with 10 ml 0.9% sodium chloride and push over 2 minutes. (Same as: Protonix) enoxaparin 2012-02 No Clayton 40 mg, 0.4 M emoria 1-20 Arnoldo mL, Route: l 00:00: Trung SUB-Q, Drug form: INJ, [id number], Dosing Weight 84.091, kg, Start date: 01/04/13 18:00:00, Duration: 30 day, Stop date: 02/02/13 18:00:00([facility] as: Lovenox) Tylenol 2012-02 No Clayton 650 mg, 2 Memor ia 1-19 Arnoldo tab, l 23:13: Trung Route: PO, River 00 Drug form: TAB, Q6H, Dosing Weight 84.091, kg, PRN Pain Score 1-3, Start date: 01/04/13 17:13:00, Duration: 30 day, Stop date: 02/03/13 17:12:00Do not exceed 4 gm/day. (Same as: Tylenol) Phenergan + 2012-02 No Clayton 12.5 mg, Me moria Sodium -19 Arnoldo 0.5 mL, l Chloride 23:06: Trung Route: River 0.9% IV 50 00 IVPB, Q6H, mL Dosing Weight 84.091, kg, PRN Nausea & Vomiting, Start date: 01/04/13 17:06:00, Duration: 30 day, Stop date: 02/03/13 17:05:00Do not give IV push. (Same as: Phenergan) ondansetron 2012-02 No Clayton 4 mg, 2 Mem oria 1-19 Arnoldo mL, Route: l 22:50: Trung IVP, Drug Kinney 00 form: INJ, Q6H, Dosing Weight 84.091, kg, PRN Nausea & Vomiting, Start date: 01/04/13 16:50:00, Duration: 30 day, Stop date: 02/03/13 16:49:00(S cayetano as: Zofran) D5W 1/2NS + 2012-02 No Bry 1,000 mL, Memoria KCL 20mEq/L 03-06 Alan Rate: 125 l 1000ml 11:53: ml/hr, River (Premix) 00 Infuse 1,000 mL over: 8 hr, Route: IV, Dosing Weight 84.091 kg, Total Volume: 1,000, Start date: 01/04/13 5:53:00, Duration: 30 day, Stop date: 02/03/13 5:52:00PRE MIX IV - Do Not Alter Saline 2012-02 No Bry 5 ml, Memoria Flush 0.9% - Alan Route: l 11:53: IVP, Drug Kinney 00 Form: INJ, Dosing Weight 84.091, kg, PRN, PRN Line Flush, Start date: 01/04/13 5:53:00, Duration: 30 day, Stop date: 02/03/13 5:52:00(Sa me as: BD Posiflush) morphine 2012-02 No Bry 4 mg, 2 Mem oria Sulfate -19 Alan mL, Route: l 11:53: IVP, Drug River 00 form: INJ, Q3H, Dosing Weight 84.091, kg, PRN Pain Score 4-6, Start date: 01/04/13 5:53:00, Duration: 30 day, Stop date: 02/03/13 5:52:00(Sa me as:MORPhin e Sulfate) ondansetron 2012-02 No Clayton 4 mg, 2 Mem oria 1-19 Arnoldo mL, Route: l 11:53: Trung IVP, Drug River 00 form: INJ, Q8H, Dosing Weight 84.091, kg, PRN Nausea & Vomiting, Start date: 01/04/13 5:53:00, Duration: 30 day, Stop date: 02/03/13 5:52:00(Sa me as: Zofran) morphine 2012-02 No Haile 4 mg, 2 Memor ia Sulfate 1-19 Charlie mL, Route: l 10:04: Popat IVP, Drug Kinney 00 form: INJ, ONCE, Dosing Weight 84.091, kg, Start date: 01/04/13 4:04:00, Stop date: 01/04/13 4:04:00(Sa me as:MORPhin e Sulfate) GI cocktail 2012-02 No Haile 30 mL, Mem oria 1-19 Charlie Route: PO, l 07:43: Popat Drug Form: Luke n 00 SUSP, Dosing Weight 84.091, kg, ONCE, STAT, Start date: 01/04/13 1:43:00, Stop date: 01/04/13 1:43:00G.I . Cocktail = antacid with simethicon e 22.5 mL - lidocaine viscous 7.5 mL ketorolac 2012-02 No Haile 30 mg, 1 Mem oria 1-19 Charlie mL, Route: l 07:11: Popat IVP, Drug Kinney 00 form: INJ, ONCE, Dosing Weight 84.091, kg, Priority: STAT, Start date: 01/04/13 1:11:00, Stop date: 01/04/13 1:11:00(Sa me as:Toradol ) IV bolus must be given >15 seconds. Give IM administra tion slowly and deeply into the muscle. Not for use > 4 days Zofran 2012-02 No Haile 4 mg, 2 Memoria 1-19 Charlie mL, Route: l 02:44: Popat IVP, Drug Kinney 00 form: INJ, ONCE, Dosing Weight 84.091, kg, Priority: STAT, Start date: 01/03/13 20:44:00, Stop date: 01/03/13 20:44:00(S cayetano as: Zofran) Sodium 2012-02 No Haile 1,000 mL, Memor ia Chloride 1-19 Charlie Rate: l 0.9% 02:44: Popat 1,000 Kinney (Bolus) IV 00 ml/hr, 1,000 mL Infuse over: 1 hr, Route: IV, Dosing Weight 84.091 kg, Total Volume: 1,000, Bolus Dose, Priority: STAT, Start date: 01/03/13 20:44:00, Duration: 1 doses or times, Stop date: 01/03/13 21:43:00 morphine 2012-02 No Haile 4 mg, 2 Memor ia Sulfate 1-19 Charlie mL, Route: l 02:44: Popat IVP, Drug Kinney 00 form: INJ, ONCE, Dosing Weight 84.091, kg, Priority: STAT, Start date: 01/03/13 20:44:00, Stop date: 01/03/13 20:44:00(S cayetano as:MORPhin e Sulfate) [place] 52012-02 Yes Yael 1 tab, PO, Memoria oral tablet 0-31 Aprielle Q4-6H, l 06:49: [place] PRN, 30 Kinney 21 tab, as needed for pain, Substituti on Allowed, Maintenanc e Zofran 4 mg 2012-02 Yes Yael 4 mg, 1 M emoria oral tablet 0-31 Aprielle tab, PO, l 05:57: [place] BID, 10 River 06 tab, Substituti on Allowed [place] 5/325 2012-02 Yes Yael 1 tab, PO, Memoria oral tablet 0-31 Aprielle Q4-6H, l 05:41: Maeve PRN, 30 River 14 tab, as needed for pain, Substituti on Allowed, Maintenanc e Zofran 2012-02 No Yael 4 mg, Memoria 0-31 Aprielle Route: l 05:16: [place] IVP, Drug River 00 form: INJ, ONCE, Dosing Weight 84.091, kg, Priority: STAT, Start date: 12/16/12 0:16:00, Stop date: 12/16/12 0:16:00 Flexeril 2012-02 No Yael 10 mg, Memor ia 0-31 Aprielle Route: PO, l 03:39: Maeve ONCE, River 00 Dosing Weight 84.091, kg, Priority: STAT, Start date: 12/15/12 22:39:00, Stop date: 12/15/12 22:39:00 NS 1,000 mL 2012-02 No Yael 1,000 mL, Memoria 0-31 Aprielle Rate: 150 l 03:38: Maeve ml/hr, Kinney 00 Infuse over: 6.7 hr, Route: IV, Dosing Weight 84.091 kg, Total Volume: 1,000, Start date: 12/15/12 22:38:00, Duration: 30 day, Stop date: 01/14/13 22:37:00 ketorolac 2012-02 No Yael 30 mg, Solomon lashaun 0-31 Aprielle Route: l 03:38: [place] IVP, Drug Kinney 00 form: INJ, ONCE, Dosing Weight 84.091, kg, Priority: STAT, Start date: 12/15/12 22:38:00, Stop date: 12/15/12 22:38:00 morphine 2012-02 No Yael 4 mg, Memori a Sulfate 0-31 Aprielle Route: l 02:15: Maeve IVP, Drug River 00 form: INJ, ONCE, Dosing Weight 84.091, kg, Priority: STAT, Start date: 12/15/12 21:15:00, Stop date: 12/15/12 21:15:00 Zofran 2012-02 No Yael 4 mg, Memoria 0-31 Aprielle Route: l 02:15: [place] IVP, Drug River 00 form: INJ, ONCE, Dosing Weight 84.091, kg, Priority: STAT, Start date: 12/15/12 21:15:00, Stop date: 12/15/12 21:15:00 Toradol 30 No Isolde 30 mg, Mem oria mg/mL 08-19 Sasam Route: l injectable 00:16: Aguhar IVP, ONCE, Kinney solution 00 Dosing Weight 86.364, kg, Start date: 08/18/12 19:16:00, Stop date: 08/18/12 19:16:00 Ultram 50 Yes Isolde 50 mg, 1 Me moria mg oral 08-19 Sasam tab, PO, l tablet 00:15: Aguhar Q4H, PRN, Herm elizabet 39 20 tab, pain, Substituti on Allowed Saline No Isolde 5 ml, Memoria Flush 0.9% 08-18 Sasam Route: l 22:57: Aguhar IVP, Drug Luke n 00 Form: INJ, Dosing Weight 86.364, kg, PRN, PRN Line Flush, Start date: 08/18/12 17:57:00, Duration: 30 day, Stop date: 09/17/12 17:56:00 Zofran 4 mg Yes Waylon R 4 mg, 1 M emoria oral tablet 5-20 Jean tab, PO, l 19:31: Q8H, PRN, River 22 8 tab, as needed for nausea/vom iting, Substituti on Allowed, TAB ondansetron No Waylno R 4 mg, Mem oria 5-20 Jean Route: PO, l 19:30: Drug form: River 00 TABDIS, ONCE, Dosing Weight 81.818, kg, Priority: STAT, Start date: 07/05/12 14:30:00, Stop date: 07/05/12 14:30:00 Phenergan No Waylon R 25 mg, Solomon lashaun 5-20 Jean Route: IM, l 19:30: ONCE, Kinney 00 Dosing Weight 81.818, kg, Priority: STAT, Start date: 07/05/12 14:30:00, Stop date: 07/05/12 14:30:00 Esgic 325 Yes Waylon R 2 tab, PO, Memoria mg-50 mg-40 5-20 Jean Q6H, PRN, l mg oral 19:27: 30 tab, as Herm elizabet tablet 07 needed for headache, Substituti on Allowed, Maintenanc e valproate No Waylon R 750 mg, Mem oria sodium 100 5-20 Jean 7.5 mL, l mg/mL 17:35: Route: IV, Luke n injectable 00 Drug form: solution + INJ, ONCE, Sodium Dosing Chloride Weight 0.9% IV 100 81.818, mL kg, give SIVP over 2 minutes, Priority: STAT, Start date: 07/05/12 12:35:00, Stop date: 07/05/12 12:35:00 metoclopram No Waylon R 10 mg, Me moria talat 5-20 Jean Route: l 16:38: IVP, ONCE, Kinney Dosing Weight 81.818, kg, Priority: STAT, Start date: 07/05/12 11:38:00, Stop date: 07/05/12 11:38:00 ketorolac No Waylon R 30 mg, Solomon lashaun 5-20 Jean Route: l 16:38: IVP, Drug form: INJ, ONCE, Dosing Weight 81.818, kg, Priority: STAT, Start date: 07/05/12 11:38:00, Stop date: 07/05/12 11:38:00 Sodium No Waylon R 1,000 mL, Solomon lashaun Chloride 5-20 Jean Rate: l 0.9% 16:38: 1,000 Kinney (Bolus) IV 00 ml/hr, 1000 mL Infuse over: 1 hr, Route: IV, Dosing Weight 81.818 kg, Total Volume: 1,000, Priority: STAT, Start date: 07/05/12 11:38:00, Duration: 1 doses or times, Stop date: 07/05/12 12:37:00, Bolus DoseBolus Dose [place] 5/325 Yes Bry 1-2 tab, Memoria oral tablet 3-12 Alan PO, Q4-6H, l 17:51: PRN, 15 River 39 tab, Pain, Substituti on Allowed, Maintenanc e aspirin 325 Yes Bry 325 mg, 1 Memoria mg tablet, 3-12 Alan tab, PO, l enteric 17:51: Daily, 30 Rena nn coated 33 tab, Substituti on Allowed, ECTAB Coumadin 0 No Clayton 5 mg, 1 Memori a 3-08 Arnoldo tab, l 23:00: Trung Route: PO, River 00 Drug form: TAB, Daily, Dosing Weight 81.818, kg, Start date: 04/23/12 17:00:00, Stop date: 05/22/12 17:00:00 Lyrica 2012-0 No Clayton 50 mg, 1 Memoria 3-08 Arnoldo cap, l 19:45: Trung Route: PO, River 00 Drug form: CAP, Q8H, Dosing Weight 81.818, kg, Priority: NOW, Start date: 04/23/12 13:45:00, Duration: 30 day, Stop date: 05/23/12 8:00:00 acetaminoph 2012-0 No Clayton 2 tab, Solomon lashaun en-hydrocod 3-07 Arnoldo Route: PO, l one 325 17:27: Trung Drug Form: Herm elizabet mg-10 mg 00 TAB, Q4H, oral tablet PRN Severe Pain, Start date: 04/22/12 11:27:00, Duration: 30 day, Stop date: 05/22/12 11:26:00 morphine 2012-0 No Clayton 2 mg, 1 Memori a Sulfate 3-07 Arnoldo mL, Route: l 17:18: Trung IVP, Drug Kinney 00 form: INJ, Q3H, Dosing Weight 81.818, kg, PRN Pain Score 6-10, Start date: 04/22/12 11:18:00, Duration: 30 day, Stop date: 05/22/12 11:17:00 Melbourne 2012-0 No Clayton Route: PO, Memori a 10/325 oral 3-07 Arnoldo Drug Form: l tablet 17:17: Trung TAB, River 00 Dosing Weight 81.818, kg, Q4H, PRN Pain, Start date: 04/22/12 11:17:00, Duration: 30 day, Stop date: 05/22/12 11:16:00 Wellbutrin 2012-0 No Clayton 100 mg, 1 Me moria SR 3-06 Arnoldo tab, l 23:00: Trung Route: PO, River 00 Drug form: ERTAB, BID, Dosing Weight 81.818, kg, Start date: 04/21/12 17:00:00, Duration: 30 day, Stop date: 05/21/12 9:00:00 Coumadin 2013-0 No Clayton 7.5 mg, 1 Solomon lashaun 3-06 Arnoldo tab, l 23:00: Trung Route: PO, Drug form: TAB, Daily, Dosing Weight 81.818, kg, Start date: 04/21/12 17:00:00, Stop date: 04/26/12 17:00:00 enoxaparin 2012-0 No Bry 80 mg, 0.8 Memoria 3-06 Alan mL, Route: l 19:00: SUB-Q, Drug form: INJ, [id number], Dosing Weight 81.818, kg, Start date: 04/21/12 13:00:00, Duration: 30 day, Stop date: 05/21/12 1:00:00 Zofran 2012-0 No Clayton 4 mg, 2 Memoria 3-06 Arnoldo mL, Route: l 16:09: Trnug IV, Drug form: INJ, Q6H, Dosing Weight 81.818, kg, PRN Nausea, Start date: 04/21/12 10:09:00, Duration: 30 day, Stop date: 05/21/12 10:08:00 [place] 5/325 2013-0 No Clayton 1 tab, Solomon lashaun oral tablet 3-06 Arnoldo Route: PO, l 07:53: Trung Drug Form: River 00 TAB, Dosing Weight 81.818, kg, Q4H, PRN Pain Score 1-5, Start date: 04/21/12 1:53:00, Duration: 30 day, Stop date: 05/21/12 1:52:00 morphine 2012-0 No Clayton 2 mg, 1 Memori a Sulfate 3-06 Arnoldo mL, Route: l 07:53: Trung IVP, Drug form: INJ, Q4H, Dosing Weight 81.818, kg, PRN Pain Score 6-10, Priority: STAT, Start date: 04/21/12 1:53:00, Duration: 30 day, Stop date: 05/21/12 1:52:00 acetaminoph No Janeana 650 mg, 2 Memoria en 3-06 Christine tab, l 07:52: White Route: PO, Luke n 00 Drug form: TAB, Q4H, Dosing Weight 81.818, kg, PRN See Nurse's Notes, Priority: STAT, Start date: 04/21/12 1:52:00, Duration: 30 day, Stop date: 05/21/12 1:51:00, as needed for fever/pain Unknown No Substituti Solomon lashaun Home 04-21 on Allowed l Medication 07:20: River 40 Ativan No Haile 0.5 mg, Memoria 3-06 Charlie Route: l 06:47: Popat IVP, ONCE, Luke n Dosing Weight 81.818, kg, Priority: STAT, Start date: 04/21/12 0:47:00, Stop date: 04/21/12 0:47:00 Abilify Yes Substituti Solomon lashaun 3-06 on Allowed l 06:39: River 52 Lovenox No Haile 80 mg, Memoria 3-06 Charlie Route: l 05:49: Popat SUB-Q, River 00 Drug form: INJ, ONCE, Dosing Weight 81.818, kg, Priority: STAT, Start date: 04/20/12 23:49:00, Stop date: 04/20/12 23:49:00 Zofran No Haile 4 mg, Memoria 3-06 Charlie Route: l 05:40: Popat IVP, Drug form: INJ, ONCE, Dosing Weight 81.818, kg, Priority: STAT, Start date: 04/20/12 23:40:00, Stop date: 04/20/12 23:40:00 morphine No Nadim B 4 mg, 2 Mem oria Sulfate 2-11 Catholic mL, Route: l 15:45: IVP, Drug form: INJ, ONCE, Dosing Weight 84.091, kg, Priority: STAT, Start date: 03/29/12 9:45:00, Stop date: 03/29/12 9:45:00 ciprofloxac No Nadim B 500 mg, 1 Memoria in 2-11 Catholic tab, l 15:44: Route: PO, Drug form: TAB, ONCE, Dosing Weight 84.091, kg, Priority: STAT, Start date: 03/29/12 9:44:00, Stop date: 03/29/12 9:44:00 Cipro 500 Yes Nadim B 500 mg, 1 Memoria mg oral 2-11 Catholic tab, PO, l tablet 15:42: Q12H, 6 Kinney 22 tab, Substituti on Allowed [place] 5/325 Yes Nadim B 1-2 tab, Memoria oral tablet 2-11 Catholic PO, Q4-6H, l 15:42: PRN, 15 River 11 tab, Pain, Substituti on Allowed, Maintenanc e morphine No Nadim B 6 mg, Memor ia Sulfate 03-29 Catholic Route: l 13:30: IVP, ONCE, Dosing Weight 84.091, kg, Priority: STAT, Start date: 03/29/12 7:30:00, Stop date: 03/29/12 7:30:00 ondansetron No Nadim B 4 mg, Me moria 03-29 Catholic Route: l 13:30: IVP, ONCE, Dosing Weight 84.091, kg, Priority: STAT, Start date: 03/29/12 7:30:00, Stop date: 03/29/12 7:30:00 Saline No Nadim B 5 mL, Memoria Flush 0.9% 03-29 Catholic Route: l 13:30: IVP, Drug Form: INJ, Dosing Weight 84.091, kg, PRN, PRN Line Flush, Start date: 03/29/12 7:30:00, Duration: 24 hr, Stop date: 03/30/12 7:29:00 Sodium No Nadim B 1,000 mL, Mem oria Chloride - Catholic Rate: 125 l 0.9% IV 13:30: ml/hr, Kinney 1,000 mL 00 Infuse over: 8 hr, Route: IV, kg, Total Volume: 1,000, Start date: 03/29/12 7:30:00, Duration: 30 day, Stop date: 04/28/12 7:29:00 Sodium No Nadim B 500 mL, Memor ia Chloride 2-11 Catholic Route: IV, l 0.9% 13:30: Dosing Kinney (Bolus) IV 00 Weight 84.091, kg, ONCE, Bolus at 1,000 ml/hr, STAT, Start date: 03/29/12 7:30:00, Stop date: 03/29/12 7:30:00 [place] 5/325 Yes Nadim B 1-2 tab, Memoria oral tablet 1-08 Catholic PO, Q4-6H, l 16:45: PRN, 15 River 14 tab, Pain, Substituti on Allowed, Maintenanc e Macrobid Yes Nadim B 100 mg, 1 M emoria 100 mg oral 1-08 Catholic cap, PO, l capsule 16:44: BID, 14 Kinney 58 cap, Substituti on Allowed morphine No Nadim B 4 mg, 2 Mem oria Sulfate 1-08 Catholic mL, Route: l 15:27: IVP, Drug Kinney 00 form: INJ, ONCE, Dosing Weight 79.545, kg, Priority: STAT, Start date: 02/24/12 9:27:00, Stop date: 02/24/12 9:27:00 morphine No Nadim B 4 mg, Memor ia Sulfate 1- Catholic Route: l 14:37: IVP, Drug Kinney 00 form: INJ, ONCE, Dosing Weight 79.545, kg, Priority: STAT, Start date: 02/24/12 8:37:00, Stop date: 02/24/12 8:37:00 Saline No Nadim B 5 mL, Memoria Flush 0.9% 1 Catholic Route: l 14:37: IVP, Drug River 00 Form: INJ, Dosing Weight 79.545, kg, PRN, PRN Line Flush, Start date: 02/24/12 8:37:00, Duration: 24 hr, Stop date: 02/25/12 8:36:00 ondansetron No Kyle 4 mg, Solomon lashaun 6- Lacy Route: l 02:29: Nriagu IVP, Drug Luke n 00 form: INJ, ONCE, Priority: STAT, Start date: 08/08/11 21:29:00, Stop date: 08/08/11 21:29:00 Dilaudid 2011-0 No Kyle 1 mg, Memoria 6-23 Lacy Route: IV, l 02:29: Nriagu ONCE, River 00 Start date: 08/08/11 21:29:00, Stop date: 08/08/11 21:29:00 tramadol 50 2011- Yes Kyle 50 mg, PO, Memoria mg oral 08-08 Lacy Q4-6H, l tablet 02:14: Nriagu PRN, 20 Luke n 23 tab, Pain, Substituti on Allowed Dilaudid 2011-0 No Kyle 1 mg, 1 Memor ia - Lacy mL, Route: l 00:49: Nriagu IV, Drug Kinney 00 form: SOLN, ONCE, Start date: 08/08/11 19:49:00, Stop date: 08/08/11 19:49:00 Zofran 2011-0 No Kyle 4 mg, Memoria -23 Lacy Route: l 00:00: Nriagu IVP, Drug Luke n 00 form: INJ, ONCE, Priority: STAT, Start date: 08/08/11 19:00:00, Stop date: 08/08/11 19:00:00 morphine 2011-0 No Kyle 4 mg, Memoria Sulfate - Lacy Route: l 00:00: Nriagu IVP, ONCE, Rena nn 00 Priority: STAT, Start date: 08/08/11 19:00:00, Stop date: 08/08/11 19:00:00 Protonix Protonix Yes Judy 1 tablet Co mmon Millender [facility] Vraylar 3 Vraylar 3 No 1{capsu QD Vraylar 3 MG MG le} MG Protonix 40 Protonix 40 No 1{table QD Protonix MG MG t} 40 MG Hyoscyamine Hyoscyamine No QD Hyoscyamin Sulfate Sulfate e Sulfate 0.125 MG 0.125 MG 0.125 MG Lisinopril- Lisinopril- No 1{table QD Lisinopril hydroCHLORO hydroCHLORO t} -hydroCHLO thiazide thiazide ROthiazide 10-12.5 MG 10-12.5 MG 10-12.5 MG Lisinopril- Lisinopril- No 1{table QD Lisinopril hydroCHLORO hydroCHLORO t} -hydroCHLO thiazide thiazide ROthiazide 10-12.5 MG 10-12.5 MG 10-12.5 MG Protonix 40 Protonix 40 No 1{table QD Protonix MG MG t} 40 MG Hyoscyamine Hyoscyamine No QD Hyoscyamin Sulfate Sulfate e Sulfate 0.125 MG 0.125 MG 0.125 MG Vraylar 3 Vraylar 3 No 1{capsu QD Vraylar 3 MG MG le} MG Lisinopril- Lisinopril- No 1{table QD Lisinopril hydroCHLORO hydroCHLORO t} -hydroCHLO thiazide thiazide ROthiazide 10-12.5 MG 10-12.5 MG 10-12.5 MG Protonix 40 Protonix 40 No 1{table QD Protonix MG MG t} 40 MG Hyoscyamine Hyoscyamine No QD Hyoscyamin Sulfate Sulfate e Sulfate 0.125 MG 0.125 MG 0.125 MG Vraylar 3 Vraylar 3 No 1{capsu QD Vraylar 3 MG MG le} MG Pantoprazol Pantoprazol No Pantoprazo e Sodium 40 e Sodium 40 le Sodium MG MG 40 MG PARoxetine PARoxetine No PARoxetine HCl 20 MG HCl 20 MG HCl 20 MG Hyoscyamine Hyoscyamine No QD Hyoscyamin Sulfate Sulfate e Sulfate 0.125 MG 0.125 MG 0.125 MG Lisinopril- Lisinopril- No 1{table QD Lisinopril hydroCHLORO hydroCHLORO t} -hydroCHLO thiazide thiazide ROthiazide 10-12.5 MG 10-12.5 MG 10-12.5 MG Vraylar 3 Vraylar 3 No 1{capsu QD Vraylar 3 MG MG le} MG Motegrity 2 Motegrity 2 No 1{table QD Motegrity MG MG t} 2 MG Lisinopril- Lisinopril- No 1{table QD Lisinopril hydroCHLORO hydroCHLORO t} -hydroCHLO thiazide thiazide ROthiazide 10-12.5 MG 10-12.5 MG 10-12.5 MG PARoxetine PARoxetine No PARoxetine HCl 20 MG HCl 20 MG HCl 20 MG Pantoprazol Pantoprazol No Pantoprazo e Sodium 40 e Sodium 40 le Sodium MG MG 40 MG Vraylar 4.5 Vraylar 4.5 No 1{capsu QD Vraylar MG MG le} 4.5 MG Hyoscyamine Hyoscyamine No QD Hyoscyamin Sulfate Sulfate e Sulfate 0.125 MG 0.125 MG 0.125 MG Cyclobenzap Cyclobenzap No 1{table QD Cyclobenza rine HCl 10 rine HCl 10 t_at_be katina HCl MG MG dtime_a 10 MG s_neede d} Cyclobenzap Cyclobenzap No 1{table QD Cyclobenza rine HCl 10 rine HCl 10 t_at_be katina HCl MG MG dtime_a 10 MG s_neede d} Lisinopril- Lisinopril- No 1{table QD Lisinopril hydroCHLORO hydroCHLORO t} -hydroCHLO thiazide thiazide ROthiazide 10-12.5 MG 10-12.5 MG 10-12.5 MG PARoxetine PARoxetine No PARoxetine HCl 20 MG HCl 20 MG HCl 20 MG Vraylar 4.5 Vraylar 4.5 No 1{capsu QD Vraylar MG MG le} 4.5 MG Hyoscyamine Hyoscyamine No QD Hyoscyamin Sulfate Sulfate e Sulfate 0.125 MG 0.125 MG 0.125 MG Motegrity 2 Motegrity 2 No 1{table QD Motegrity MG MG t} 2 MG Pantoprazol Pantoprazol No Pantoprazo e Sodium 40 e Sodium 40 le Sodium MG MG 40 MG Pantoprazol Pantoprazol No Pantoprazo e Sodium 40 e Sodium 40 le Sodium MG MG 40 MG Lisinopril- Lisinopril- No 1{table QD Lisinopril hydroCHLORO hydroCHLORO t} -hydroCHLO thiazide thiazide ROthiazide 10-12.5 MG 10-12.5 MG 10-12.5 MG PARoxetine PARoxetine No PARoxetine HCl 20 MG HCl 20 MG HCl 20 MG Vraylar 4.5 Vraylar 4.5 No 1{capsu QD Vraylar MG MG le} 4.5 MG Cyclobenzap Cyclobenzap No 1{table QD Cyclobenza rine HCl 10 rine HCl 10 t_at_be katina HCl MG MG dtime_a 10 MG s_neede d} Motegrity 2 Motegrity 2 No 1{table QD Motegrity MG MG t} 2 MG Hyoscyamine Hyoscyamine No QD Hyoscyamin Sulfate Sulfate e Sulfate 0.125 MG 0.125 MG 0.125 MG Motegrity 2 Motegrity 2 No 1{table QD Motegrity MG MG t} 2 MG Pantoprazol Pantoprazol No 1{table QD Pantoprazo e Sodium 40 e Sodium 40 t} le Sodium MG MG 40 MG PARoxetine PARoxetine No PARoxetine HCl 20 MG HCl 20 MG HCl 20 MG Lisinopril- Lisinopril- No 1{table QD Lisinopril hydroCHLORO hydroCHLORO t} -hydroCHLO thiazide thiazide ROthiazide 10-12.5 MG 10-12.5 MG 10-12.5 MG Hyoscyamine Hyoscyamine No QD Hyoscyamin Sulfate Sulfate e Sulfate 0.125 MG 0.125 MG 0.125 MG Cyclobenzap Cyclobenzap No 1{table QD Cyclobenza rine HCl 10 rine HCl 10 t_at_be katina HCl MG MG dtime_a 10 MG s_neede d} Gabapentin Gabapentin No Gabapentin 300 MG 300 MG 300 MG Motegrity 2 Motegrity 2 No 1{table QD Motegrity MG MG t} 2 MG Pantoprazol Pantoprazol No 1{table QD Pantoprazo e Sodium 40 e Sodium 40 t} le Sodium MG MG 40 MG Cyclobenzap Cyclobenzap No 1{table QD Cyclobenza rine HCl 10 rine HCl 10 t_at_be katina HCl MG MG dtime_a 10 MG s_neede d} Lisinopril- Lisinopril- No 1{table QD Lisinopril hydroCHLORO hydroCHLORO t} -hydroCHLO thiazide thiazide ROthiazide 10-12.5 MG 10-12.5 MG 10-12.5 MG PARoxetine PARoxetine No 1{table QD PARoxetine HCl 40 MG HCl 40 MG t_in_th HCl 40 MG e_morni ng} Hyoscyamine Hyoscyamine No QD Hyoscyamin Sulfate Sulfate e Sulfate 0.125 MG 0.125 MG 0.125 MG Gabapentin Gabapentin No Gabapentin 300 MG 300 MG 300 MG Lisinopril- Lisinopril- No 1{table QD Lisinopril Hydrochloro Hydrochloro t} -Hydrochlo thiazide thiazide rothiazide 10-12.5 MG 10-12.5 MG 10-12.5 MG Hyoscyamine Hyoscyamine No QD Hyoscyamin Sulfate Sulfate e Sulfate 0.125 MG 0.125 MG 0.125 MG Protonix 40 Protonix 40 No 1{table QD Protonix MG MG t} 40 MG Vraylar 3 Vraylar 3 No 1{capsu QD Vraylar 3 MG MG le} MG Lisinopril- Lisinopril- No 1{table QD Lisinopril Hydrochloro Hydrochloro t} -Hydrochlo thiazide thiazide rothiazide 10-12.5 MG 10-12.5 MG 10-12.5 MG Hyoscyamine Hyoscyamine No QD Hyoscyamin Sulfate Sulfate e Sulfate 0.125 MG 0.125 MG 0.125 MG Protonix 40 Protonix 40 No 1{table QD Protonix MG MG t} 40 MG Vraylar 3 Vraylar 3 No 1{capsu QD Vraylar 3 MG MG le} MG Vraylar 3 Vraylar 3 No 1{capsu QD Vraylar 3 MG MG le} MG Protonix 40 Protonix 40 No 1{table QD Protonix MG MG t} 40 MG Hyoscyamine Hyoscyamine No QD Hyoscyamin Sulfate Sulfate e Sulfate 0.125 MG 0.125 MG 0.125 MG Lisinopril- Lisinopril- No 1{table QD Lisinopril Hydrochloro Hydrochloro t} -Hydrochlo thiazide thiazide rothiazide 10-12.5 MG 10-12.5 MG 10-12.5 MG Immunizations Ordered Filled Immunization Date Status Comments Sour e Immunization Name Name Influenza Virus 2016-12-08 Completed [facility] 00:00:00 [facility] Influenza Virus 2016-12-08 Completed [facility] Vacc[facility] IM 3+ 00:00:00 [facility] Influenza Virus 2016-12-08 Completed [facility] Vaccine Quad IM 3+ 00:00:00 [facility] Influenza Virus 2016-12-08 Completed [facility] Vaccine Quad IM 3+ 00:00:00 [facility] pneumococcal 2015-12-24 Completed [facility] Her montelongo 23-valent vaccine 23:53:00 influenza virus 2015-12-20 Completed [facility] Kinney vaccine, 21:37:00 inactivated TDAP 2013-02-16 Completed [facility] 00:00:00 [facility] TDAP 2013-02-16 Completed [facility] 00:00:00 [facility] TDAP 2013-02-16 Completed [facility] 00:00:00 [facility] TDAP 2013-02-16 Completed [facility] 00:00:00 [facility] Influenza Virus 2010-12-03 Completed [facility] Vaccine (3+ yrs) 00:00:00 [facility] Influenza Virus 2010-12-03 Completed [facility] Vaccine (3+ yrs) 00:00:00 [facility] Influenza Virus 2010-12-03 Completed [facility] Vaccine (3+ yrs) 00:00:00 [facility] Influenza Virus 2010-12-03 Completed [facility] Vaccine (3+ yrs) 00:00:00 [facility] Influenza Vaccine 2010-12-03 Completed [facility] 00:00:00 Influenza Virus 2009-12-04 Completed [facility] Vaccine (3+ yrs) 00:00:00 [facility] Influenza Virus 2009-12-04 Completed [facility] Vaccine (3+ yrs) 00:00:00 [facility] Influenza Virus 2009-12-04 Completed [facility] Vaccine (3+ yrs) 00:00:00 [facility] Influenza Virus 2009-12-04 Completed [facility] Vaccine (3+ yrs) 00:00:00 [facility] Influenza Vaccine 2009-12-04 Completed [facility] 00:00:00 Vital Signs Vital Name Observation Time Observation Value Comments Source Height 2021-08-13 19:12:00 165.1 CM Weight 2021-08-13 19:12:00 94.8 KG Weight 2021-07-20 07:26:00 97.52 KG Height 2021-07-14 13:54:00 167.64 CM Weight 2021-07-14 13:54:00 94.02 KG Height 2021-06-28 01:15:00 165.1 CM Weight 2021-06-28 01:15:00 96.16 KG Height 2021-06-26 18:34:00 165.1 CM Weight 2021-06-26 18:34:00 94.34 KG Height 2021-05-28 14:56:00 165.1 CM Weight 2021-05-28 14:56:00 97.52 KG height 2021-01-17 14:40:00 64.50 [in_i] [facility] weight 2021-01-17 14:40:00 214 [lb_av] [facility] temperature 2021-01-17 14:40:00 97.8 [degF] [facility] bmi 2021-01-17 14:40:00 36.16 kg/m2 [facility] oximetry 2021-01-17 14:40:00 97 % [facility] respiratory rate 2021-01-17 14:40:00 16 /min Comm on [facility] blood pressure 2021-01-17 14:40:00 131 mm[Hg] Common [facility] - systolic [facility] blood pressure 2021-01-17 14:40:00 70 mm[Hg] [facility] - diastolic [facility] Height 2021-01-15 14:37:00 162.56 CM Weight 2021-01-15 14:37:00 97.52 KG Height 2020-12-28 20:53:00 165.1 CM Weight 2020-12-28 20:53:00 97.52 KG height 2020-12-27 08:20:00 64.50 [in_i] [facility] weight 2020-12-27 08:20:00 217 [lb_av] [facility] temperature 2020-12-27 08:20:00 98.0 [degF] [facility] bmi 2020-12-27 08:20:00 36.67 kg/m2 [facility] oximetry 2020-12-27 08:20:00 95 % Common [facility] respiratory rate 2020-12-27 08:20:00 16 /min Comm on [facility] blood pressure 2020-12-27 08:20:00 107 mm[Hg] Common [facility] systolic [facility] blood pressure 2020-12-27 08:20:00 65 mm[Hg] Common [facility] diastolic [facility] Height 2020-09-29 20:30:00 165.1 CM Weight 2020-09-29 20:30:00 92.98 KG height 2020-09-27 15:20:00 64.50 [in_i] [facility] weight 2020-09-27 15:20:00 209.4 [lb_av] [facility] temperature 2020-09-27 15:20:00 97.8 [degF] [facility] bmi 2020-09-27 15:20:00 35.38 kg/m2 [facility] oximetry 2020-09-27 15:20:00 97 % [facility] respiratory rate 2020-09-27 15:20:00 18 /min Comm on [facility] blood pressure 2020-09-27 15:20:00 131 mm[Hg] Common [facility] - systolic [facility] blood pressure 2020-09-27 15:20:00 74 mm[Hg] [facility] diastolic [facility] Systolic blood 2020-09-19 16:50:00 121 mm[Hg] Univer sity of pressure [facility] Diastolic blood 2020-09-19 16:50:00 69 mm[Hg] Unive rsity of pressure [facility] Heart rate 2020-09-19 16:50:00 68 /min Universi of [facility] Respiratory rate 2020-09-19 16:50:00 19 /min [facility] saturation in 2020-09-19 16:50:00 96 /min [facility] blood by [facility] Pulse oximetry Branch Body temperature 2020-09-19 16:08:00 36.78 Anita Univ ersity of [facility] Body height 2020-09-17 15:25:00 162.6 cm [facility] Body weight 2020-09-17 15:25:00 74.8 kg [facility] BMI 2020-09-17 15:25:00 28.29 kg/m2 [facility]i ty of [facility] Systolic blood 2020-09-19 16:50:00 121 mm[Hg] Univer sity of pressure [facility] Diastolic blood 2020-09-19 16:50:00 69 mm[Hg] Unive rsity of pressure [facility] Heart rate 2020-09-19 16:50:00 68 /min [facility]i ty of [facility] Respiratory rate 2020-09-19 16:50:00 19 /min [facility] Oxygen saturation in 2020-09-19 16:50:00 96 /min University of Arterial blood by [facility] Pulse oximetry Branch Body temperature 2020-09-19 16:08:00 36.78 Anita Univ ersity of [facility] Body height 2020-09-17 15:25:00 162.6 cm [facility] Body weight 2020-09-17 15:25:00 74.8 kg Universi ty of [facility] BMI 2020-09-17 15:25:00 28.29 kg/m2 [facility] ty of [facility] height 2020-09-03 13:20:00 64.50 [in_i] Common [facility] weight 2020-09-03 13:20:00 208 [lb_av] Common [facility] temperature 2020-09-03 13:20:00 97.4 [degF] Common [facility] bmi 2020-09-03 13:20:00 35.15 kg/m2 [facility] oximetry 2020-09-03 13:20:00 97 % [facility] respiratory rate 2020-09-03 13:20:00 18 /min Comm on [facility] blood pressure 2020-09-03 13:20:00 132 mm[Hg] Common [facility] - systolic [facility] blood pressure 2020-09-03 13:20:00 67 mm[Hg] Common [facility] - diastolic [facility] Height 2020-08-01 19:01:00 165.1 CM Weight 2020-08-01 19:01:00 93.6 KG height 2020-07-04 16:00:00 64.50 [in_i] Common [facility] weight 2020-07-04 16:00:00 204.4 [lb_av] Common [facility] temperature 2020-07-04 16:00:00 98.2 [degF] Common [facility] bmi 2020-07-04 16:00:00 34.54 kg/m2 [facility] oximetry 2020-07-04 16:00:00 77 % [facility] respiratory rate 2020-07-04 16:00:00 16 /min Comm on [facility] blood pressure 2020-07-04 16:00:00 117 mm[Hg] Common [facility] - systolic [facility] blood pressure 2020-07-04 16:00:00 69 mm[Hg] Common [facility] - diastolic [facility] height 2020-06-05 16:00:00 64.50 [in_i] Common [facility] weight 2020-06-05 16:00:00 199.4 [lb_av] Common [facility] temperature 2020-06-05 16:00:00 97.7 [degF] [facility] bmi 2020-06-05 16:00:00 33.69 kg/m2 Common [facility] oximetry 2020-06-05 16:00:00 97 % Common [facility] respiratory rate 2020-06-05 16:00:00 16 /min Comm on [facility] blood pressure 2020-06-05 16:00:00 130 mm[Hg] [facility] - systolic [facility] blood pressure 2020-06-05 16:00:00 88 mm[Hg] [facility] - diastolic [facility] Systolic (mm Hg) 2019-05-16 20:27:00 Solomon rial [place] Diastolic (mm Hg) 2019-05-16 20:27:00 Mem orial [place] Temperature Oral (F) 2019-05-16 20:27:00 98.1 F [facility] Heart Rate 2019-05-16 20:27:00 [facility] [place] Temperature Oral (F) 2019-05-16 15:33:00 98.1 F [facility] Heart Rate 2019-05-16 15:33:00 [facility] [place] Systolic (mm Hg) 2019-05-16 15:33:00 Solomon rial [place] Diastolic (mm Hg) 2019-05-16 15:33:00 Mem orial [place] Systolic (mm Hg) 2019-05-16 13:00:00 Solomon rial [place] Diastolic (mm Hg) 2019-05-16 13:00:00 Mem orial [place] Temperature Oral (F) 2019-05-16 13:00:00 98.1 F [facility] Heart Rate 2019-05-16 13:00:00 [facility] Respitory Rate 2019-05-15 21:06:00 Memori al [place] Respitory Rate 2019-05-15 16:59:00 Memori al [place] Respitory Rate 2019-05-15 12:47:00 Memori al [place] Height 2019-05-14 14:00:00 165.1 cm [facility] BMI Calculated 2019-05-14 14:00:00 [facility] Weight 2019-05-14 14:00:00 [facility] Height 2019-05-14 00:12:00 165.1 cm [facility] Weight 2019-05-14 00:12:00 [facility] BMI Calculated 2019-05-14 00:12:00 [facility] Systolic (mm Hg) 2018-07-21 20:35:00 [facility] Diastolic (mm Hg) 2018-07-21 20:35:00 [facility] Respitory Rate 2018-07-21 20:35:00 [facility] Heart Rate 2018-07-21 20:35:00 [facility] Temperature Oral (F) 2018-07-21 20:35:00 98 F [facility] Weight 2018-07-21 15:47:00 [facility] BMI Calculated 2018-07-21 15:47:00 [facility] Systolic (mm Hg) 2018-07-21 15:47:00 [facility] Diastolic (mm Hg) 2018-07-21 15:47:00 [facility] Heart Rate 2018-07-21 15:47:00 [facility] Respitory Rate 2018-07-21 15:47:00 [facility] Temperature Oral (F) 2018-07-21 15:47:00 98 F [facility] Height 2018-07-21 15:47:00 165.1 cm [facility] Systolic (mm Hg) 2018-06-09 01:06:00 [facility] Diastolic (mm Hg) 2018-06-09 01:06:00 [facility] Temperature Oral (F) 2018-06-09 01:06:00 98.0 F [facility] Respitory Rate 2018-06-09 01:06:00 [facility] Heart Rate 2018-06-09 01:06:00 [facility] Temperature Oral (F) 2018-06-08 22:14:00 97.6 F [facility] Heart Rate 2018-06-08 22:14:00 [facility] Respitory Rate 2018-06-08 22:14:00 [facility] Systolic (mm Hg) 2018-06-08 22:14:00 [facility] Diastolic (mm Hg) 2018-06-08 22:14:00 [facility] Height 2018-06-08 18:15:00 165.1 cm [facility] Temperature Oral (F) 2018-06-08 18:15:00 98.4 F [facility] Systolic (mm Hg) 2018-06-08 18:15:00 [facility] Diastolic (mm Hg) 2018-06-08 18:15:00 [facility] BMI Calculated 2018-06-08 18:15:00 [facility] Weight 2018-06-08 18:15:00 [facility] Heart Rate 2018-06-08 18:15:00 [facility] Respitory Rate 2018-06-08 18:15:00 [facility] Heart Rate 2016-09-27 01:19:00 [facility] Temperature Oral (F) 2016-09-27 01:19:00 98.2 F [facility] Systolic (mm Hg) 2016-09-27 01:19:00 [facility] Diastolic (mm Hg) 2016-09-27 01:19:00 [facility] Respitory Rate 2016-09-27 01:19:00 [facility] Respitory Rate 2016-09-26 21:22:00 [facility] Heart Rate 2016-09-26 21:22:00 [facility] Systolic (mm Hg) 2016-09-26 21:22:00 [facility] Diastolic (mm Hg) 2016-09-26 21:22:00 [facility] Temperature Oral (F) 2016-09-26 21:22:00 98.7 F [facility] Weight 2016-09-26 21:22:00 [facility] Respitory Rate 2016-09-09 12:31:00 [facility] Systolic (mm Hg) 2016-09-09 12:31:00 [facility] Diastolic (mm Hg) 2016-09-09 12:31:00 [facility] Temperature Oral (F) 2016-09-09 12:31:00 98.1 F [facility] Heart Rate 2016-09-09 12:31:00 [facility] Respitory Rate 2016-09-09 08:57:00 [facility] Temperature Oral (F) 2016-09-09 08:57:00 97.9 F [facility] Heart Rate 2016-09-09 08:57:00 [facility] Systolic (mm Hg) 2016-09-09 08:57:00 [facility] Diastolic (mm Hg) 2016-09-09 08:57:00 [facility] Systolic (mm Hg) 2016-09-09 03:50:00 [facility] Diastolic (mm Hg) 2016-09-09 03:50:00 [facility] Temperature Oral (F) 2016-09-09 03:50:00 98.1 F [facility] Heart Rate 2016-09-09 03:50:00 [facility] Respitory Rate 2016-09-09 03:50:00 [facility] Height 2016-09-05 02:48:00 165.1 cm [facility] Weight 2016-09-05 02:30:00 [facility] Weight 2016-09-04 21:13:00 [facility] BMI Calculated 2016-09-04 21:13:00 [facility] Height 2016-09-04 21:13:00 165.1 cm [facility] Systolic (mm Hg) 2016-08-17 05:30:00 [facility] Diastolic (mm Hg) 2016-08-17 05:30:00 [facility] Heart Rate 2016-08-17 05:30:00 [facility] Respitory Rate 2016-08-17 05:30:00 [facility] Weight 2016-08-17 02:49:00 [facility] BMI Calculated 2016-08-17 02:49:00 [facility] Temperature Oral (F) 2016-08-17 02:49:00 98.4 F [facility] Height 2016-08-17 02:49:00 165.1 cm [facility] Systolic (mm Hg) 2016-08-17 02:49:00 [facility] Diastolic (mm Hg) 2016-08-17 02:49:00 [facility] Heart Rate 2016-08-17 02:49:00 [facility] Respitory Rate 2016-08-17 02:49:00 [facility] Weight 2016-07-02 22:40:00 [facility] BMI Calculated 2016-07-02 22:40:00 [facility] Height 2016-07-02 22:40:00 165.1 cm [facility] Temperature Oral (F) 2016-07-02 22:40:00 98.2 F [facility] Heart Rate 2016-07-02 22:40:00 [facility] Systolic (mm Hg) 2016-07-02 22:40:00 [facility] Diastolic (mm Hg) 2016-07-02 22:40:00 [facility] Respitory Rate 2016-07-02 22:40:00 [facility] Systolic (mm Hg) 2016-06-26 03:58:00 [facility] Diastolic (mm Hg) 2016-06-26 03:58:00 [facility] Heart Rate 2016-06-26 03:58:00 [facility] Respitory Rate 2016-06-26 03:58:00 [facility] Respitory Rate 2016-06-25 22:18:00 [facility] Heart Rate 2016-06-25 22:18:00 [facility] Temperature Oral (F) 2016-06-25 22:18:00 98.6 F [facility] BMI Calculated 2016-06-25 22:18:00 [facility] Weight 2016-06-25 22:18:00 [facility] Height 2016-06-25 22:18:00 165.1 cm [facility] Systolic (mm Hg) 2016-06-25 22:18:00 [facility] Diastolic (mm Hg) 2016-06-25 22:18:00 [facility] Weight 2016-06-04 00:10:00 [facility] Systolic (mm Hg) 2016-06-04 00:10:00 [facility] Diastolic (mm Hg) 2016-06-04 00:10:00 [facility] Temperature Oral (F) 2016-06-04 00:10:00 98.4 F [facility] Respitory Rate 2016-06-04 00:10:00 [facility] Heart Rate 2016-06-04 00:10:00 [facility] Temperature Oral (F) 2016-05-14 23:02:00 98.5 F [facility] Heart Rate 2016-05-14 23:02:00 [facility] Systolic (mm Hg) 2016-05-14 23:02:00 [facility] Diastolic (mm Hg) 2016-05-14 23:02:00 [facility] Respitory Rate 2016-05-14 23:02:00 [facility] Respitory Rate 2016-05-14 21:54:00 [facility] Temperature Oral (F) 2016-05-14 21:54:00 98.2 F [facility] Heart Rate 2016-05-14 21:54:00 [facility] Systolic (mm Hg) 2016-05-14 21:54:00 [facility] Diastolic (mm Hg) 2016-05-14 21:54:00 [facility] Height 2016-05-14 18:46:00 165.1 cm [facility] BMI Calculated 2016-05-14 18:46:00 [facility] Weight 2016-05-14 18:46:00 [facility] Respitory Rate 2016-05-14 18:46:00 [facility] Temperature Oral (F) 2016-05-14 18:46:00 98.1 F [facility] Heart Rate 2016-05-14 18:46:00 [facility] Systolic (mm Hg) 2016-05-14 18:46:00 [facility] Diastolic (mm Hg) 2016-05-14 18:46:00 [facility] Systolic (mm Hg) 2015-12-25 14:00:00 [facility] Diastolic (mm Hg) 2015-12-25 14:00:00 [facility] Temperature Oral (F) 2015-12-25 14:00:00 98.1 F [facility] Respitory Rate 2015-12-25 14:00:00 [facility] Heart Rate 2015-12-25 14:00:00 [facility] Temperature Oral (F) 2015-12-25 09:46:00 98.3 F [facility] Respitory Rate 2015-12-25 09:46:00 [facility] Systolic (mm Hg) 2015-12-25 09:46:00 [facility] Diastolic (mm Hg) 2015-12-25 09:46:00 [facility] Heart Rate 2015-12-25 09:46:00 [facility] Systolic (mm Hg) 2015-12-25 05:45:00 [facility] Diastolic (mm Hg) 2015-12-25 05:45:00 [facility] Respitory Rate 2015-12-25 05:45:00 [facility] Temperature Oral (F) 2015-12-25 05:45:00 98.2 F [facility] Heart Rate 2015-12-25 05:45:00 [facility] Weight 2015-12-19 04:27:00 [facility] Height 2015-12-19 04:25:00 162.56 cm [facility] BMI Calculated 2015-12-19 04:25:00 [facility] Weight 2015-12-19 04:25:00 [facility] Weight 2015-12-18 19:09:00 [facility] Respitory Rate 2015-09-21 12:30:00 [facility] Systolic (mm Hg) 2015-09-21 12:30:00 [facility] Diastolic (mm Hg) 2015-09-21 12:30:00 [facility] Heart Rate 2015-09-21 12:30:00 [facility] BMI Calculated 2015-09-21 09:53:00 [facility] Temperature Oral (F) 2015-09-21 09:53:00 97.7 F [facility] Systolic (mm Hg) 2015-09-21 09:53:00 [facility] Diastolic (mm Hg) 2015-09-21 09:53:00 [facility] Weight 2015-09-21 09:53:00 [facility] Height 2015-09-21 09:53:00 165.1 cm [facility] Heart Rate 2015-09-21 09:53:00 [facility] Respitory Rate 2015-09-21 09:53:00 [facility] Temperature Oral (F) 2015-08-13 13:26:00 98 F [facility] Heart Rate 2015-08-13 13:26:00 [facility] Systolic (mm Hg) 2015-08-13 13:26:00 [facility] Diastolic (mm Hg) 2015-08-13 13:26:00 [facility] Heart Rate 2015-08-13 12:14:00 [facility] Systolic (mm Hg) 2015-08-13 12:14:00 [facility] Diastolic (mm Hg) 2015-08-13 12:14:00 [facility] Systolic (mm Hg) 2015-08-13 11:27:00 [facility] Diastolic (mm Hg) 2015-08-13 11:27:00 [facility] Respitory Rate 2015-08-13 11:27:00 [facility] Temperature Oral (F) 2015-08-13 11:27:00 98.2 F [facility] Heart Rate 2015-08-13 11:27:00 [facility] Weight 2015-08-13 08:47:00 [facility] Respitory Rate 2015-08-13 08:47:00 [facility] Temperature Oral (F) 2015-08-13 08:47:00 98.1 F [facility] Heart Rate 2015-08-11 02:29:00 [facility] Temperature Oral (F) 2015-08-11 02:29:00 98.6 F [facility] Respitory Rate 2015-08-11 02:29:00 [facility] Systolic (mm Hg) 2015-08-11 02:29:00 [facility] Diastolic (mm Hg) 2015-08-11 02:29:00 [facility] Systolic (mm Hg) 2015-08-11 01:12:00 [facility] Diastolic (mm Hg) 2015-08-11 01:12:00 [facility] Heart Rate 2015-08-11 01:12:00 [facility] Respitory Rate 2015-08-11 01:12:00 [facility] Weight 2015-08-10 22:15:00 [facility] Systolic (mm Hg) 2015-08-10 22:15:00 [facility] Diastolic (mm Hg) 2015-08-10 22:15:00 [facility] Respitory Rate 2015-08-10 22:15:00 [facility] Heart Rate 2015-08-10 22:15:00 [facility] Temperature Oral (F) 2015-08-10 22:15:00 98.3 F [facility] Systolic (mm Hg) 2015-07-30 21:00:00 [facility] Diastolic (mm Hg) 2015-07-30 21:00:00 [facility] Heart Rate 2015-07-30 21:00:00 [facility] Temperature Oral (F) 2015-07-30 21:00:00 98.3 F [facility] Respitory Rate 2015-07-30 21:00:00 [facility] Systolic (mm Hg) 2015-07-30 17:01:00 [facility] Diastolic (mm Hg) 2015-07-30 17:01:00 [facility] Respitory Rate 2015-07-30 17:01:00 [facility] Temperature Oral (F) 2015-07-30 17:01:00 98.3 F [facility] Heart Rate 2015-07-30 17:01:00 [facility] Heart Rate 2015-07-30 12:37:00 [facility] Respitory Rate 2015-07-30 12:37:00 [facility] Temperature Oral (F) 2015-07-30 12:37:00 98.1 F [facility] Weight 2015-07-30 03:59:00 [facility] Height 2015-07-30 03:59:00 165.1 cm [facility] BMI Calculated 2015-07-30 03:59:00 [facility] BMI Calculated 2015-07-29 21:02:00 [facility] Weight 2015-07-29 21:02:00 [facility] Height 2015-07-29 21:02:00 165.1 cm [facility] Respitory Rate 2015-07-28 17:08:00 [facility] Systolic (mm Hg) 2015-07-28 17:08:00 [facility] Diastolic (mm Hg) 2015-07-28 17:08:00 [facility] Temperature Oral (F) 2015-07-28 17:08:00 98.4 F [facility] Heart Rate 2015-07-28 17:08:00 [facility] Temperature Oral (F) 2015-07-28 15:38:00 98.1 F [facility] Respitory Rate 2015-07-28 15:38:00 [facility] Systolic (mm Hg) 2015-07-28 15:38:00 [facility] Diastolic (mm Hg) 2015-07-28 15:38:00 [facility] Heart Rate 2015-07-28 15:38:00 [facility] BMI Calculated 2015-07-28 14:52:00 [facility] Height 2015-07-28 14:52:00 165.1 cm [facility] Weight 2015-07-28 14:52:00 [facility] Temperature Oral (F) 2015-07-28 14:52:00 98.4 F [facility] Heart Rate 2015-07-28 14:52:00 [facility] Respitory Rate 2015-07-28 14:52:00 [facility] Systolic (mm Hg) 2015-07-28 14:52:00 [facility] Diastolic (mm Hg) 2015-07-28 14:52:00 [facility] Temperature Oral (F) 2013-02-22 00:20:00 98.0 F [facility] Respitory Rate 2013-02-22 00:20:00 [facility] Systolic (mm Hg) 2013-02-22 00:20:00 [facility] Diastolic (mm Hg) 2013-02-22 00:20:00 [facility] Heart Rate 2013-02-22 00:20:00 [facility] Weight 2013-02-21 20:48:00 [facility] Height 2013-02-21 20:48:00 165.1 cm [facility] Temperature Oral (F) 2013-02-21 20:48:00 98.3 F [facility] Heart Rate 2013-02-21 20:48:00 [facility] Respitory Rate 2013-02-21 20:48:00 [facility] Systolic (mm Hg) 2013-02-21 20:48:00 [facility] Diastolic (mm Hg) 2013-02-21 20:48:00 [facility] Weight 2013-01-20 17:08:00 [facility] Height 2013-01-20 17:08:00 165.1 cm [facility] Systolic (mm Hg) 2013-01-20 17:08:00 [facility] Temperature Oral (F) 2013-01-20 17:08:00 98.6 F [facility] Respitory Rate 2013-01-20 17:08:00 [facility] Diastolic (mm Hg) 2013-01-20 17:08:00 [facility] Heart Rate 2013-01-20 17:08:00 [facility] Temperature Oral (F) 2013-01-07 13:56:00 98.2 F [facility] Heart Rate 2013-01-07 13:56:00 [facility] Respitory Rate 2013-01-07 13:56:00 [facility] Systolic (mm Hg) 2013-01-07 13:56:00 [facility] Diastolic (mm Hg) 2013-01-07 13:56:00 [facility] Diastolic (mm Hg) 2013-01-07 09:40:00 [facility] Respitory Rate 2013-01-07 09:40:00 [facility] Systolic (mm Hg) 2013-01-07 09:40:00 [facility] Heart Rate 2013-01-07 09:40:00 [facility] Temperature Oral (F) 2013-01-07 09:40:00 98.4 F [facility] Diastolic (mm Hg) 2013-01-07 05:20:00 [facility] Temperature Oral (F) 2013-01-07 05:20:00 98.5 F [facility] Heart Rate 2013-01-07 05:20:00 [facility] Systolic (mm Hg) 2013-01-07 05:20:00 [facility] Respitory Rate 2013-01-07 05:20:00 [facility] Height 2013-01-06 04:46:00 154.94 cm [facility] Weight 2013-01-06 04:46:00 [facility] Weight 2013-01-04 01:54:00 [facility] Height 2013-01-04 01:54:00 154.94 cm [facility] Systolic (mm Hg) 2012-12-16 05:50:00 [facility] Temperature Oral (F) 2012-12-16 05:50:00 98.4 F [facility] Diastolic (mm Hg) 2012-12-16 05:50:00 [facility] Heart Rate 2012-12-16 05:50:00 [facility] Respitory Rate 2012-12-16 02:45:00 [facility] Systolic (mm Hg) 2012-12-16 02:45:00 [facility] Diastolic (mm Hg) 2012-12-16 02:45:00 [facility] Temperature Oral (F) 2012-12-16 02:45:00 98.7 F [facility] Heart Rate 2012-12-16 02:45:00 [facility] Weight 2012-12-16 00:21:00 [facility] Height 2012-12-16 00:21:00 165.1 cm [facility] Heart Rate 2012-12-16 00:21:00 [facility] Diastolic (mm Hg) 2012-12-16 00:21:00 [facility] Systolic (mm Hg) 2012-12-16 00:21:00 [facility] Respitory Rate 2012-12-16 00:21:00 [facility] Temperature Oral (F) 2012-12-16 00:21:00 98.1 F [facility] Height 2012-08-18 21:46:00 165.1 cm [facility] Weight 2012-08-18 21:46:00 [facility] Height 2012-07-05 14:36:00 165.1 cm [facility] Weight 2012-07-05 14:36:00 [facility] Respitory Rate 2012-04-27 19:50:00 [facility] Temperature Oral (F) 2012-04-27 19:50:00 98.5 F [facility] Systolic (mm Hg) 2012-04-27 19:50:00 [facility] Heart Rate 2012-04-27 19:50:00 [facility] Diastolic (mm Hg) 2012-04-27 19:50:00 [facility] Heart Rate 2012-04-27 13:05:00 [facility] Temperature Oral (F) 2012-04-27 13:05:00 98.4 F [facility] Respitory Rate 2012-04-27 13:05:00 [facility] Systolic (mm Hg) 2012-04-27 13:05:00 [facility] Diastolic (mm Hg) 2012-04-27 13:05:00 [facility] Diastolic (mm Hg) 2012-04-27 09:45:00 [facility] Respitory Rate 2012-04-27 09:45:00 [facility] Systolic (mm Hg) 2012-04-27 09:45:00 [facility] Temperature Oral (F) 2012-04-27 09:45:00 97.9 F [facility] Heart Rate 2012-04-27 09:45:00 [facility] Height 2012-04-21 09:27:00 165.1 cm [facility] Weight 2012-04-21 09:27:00 [facility] Height 2012-04-20 22:00:00 165.1 cm [facility] Weight 2012-04-20 22:00:00 [facility] Height 2012-03-29 12:20:00 165.10 cm [facility] Weight 2012-03-29 12:20:00 [facility] Weight 2012-02-24 13:59:00 [facility] Height 2012-02-24 13:59:00 165.10 cm [facility] Weight 2011-08-08 20:28:00 [facility] Height 2011-08-08 20:28:00 165.10 cm [facility] Procedures Procedure Date / Time Performing Clinician Source Performed COLONOSCOPY (ENDO) 2020-09-19 15:47:32 Harsha Rivera [facility] COLONOSCOPY (ENDO) 2020-09-19 15:47:32 Harsha Rivera [facility] EGD (ENDO) 2020-09-19 15:32:51 Harsha Rivera [facility] EGD (ENDO) 2020-09-19 15:32:51 Harsha Rivera [place] [facility] ESOPHAGOGASTRODUODENOSCOPY 2020-09-19 15:27:00 Lexii Champagne [facility] COLONOSCOPY 2020-09-19 15:27:00 [facility]OR[facility] 2020-09-14 05:01:00 Doctor Unassigned, [facility] Name [facility] EXTERNAL PROVIDER RECORDS 2020-09-14 05:01:00 Doctor Unassigned, [facility] Name [facility] INSURANCE CORRESPONDENCE 2020-09-11 05:01:00 Doctor Unassigned, [facility] Name [facility] Cholecystectomy [facility] Hysterectomy [facility] Cholecystectomy [facility] Endometrial ablation [facility] Hysterectomy [facility] Endometrial ablation [facility] Plan of Care Planned Activity Planned Date Details Comments Source Future Scheduled Test 2021-11-16 00:00:00 IMM Influenza [facility] Seasonal (>/= 19 yrs) [code = IMM Influenza Seasonal (>/= 19 yrs)] Future Scheduled Test 2014 00:00:00 Breast Cancer Scrn [facility] (Yearly) [code = Breast Cancer Scrn (Yearly)] Future Scheduled Test 1975-03-27 00:00:00 COVID-19 Vaccine (#1) [facility] [code = COVID-19 Vaccine (#1)] Encounters Start End Encounter Admission Attending Care Care Encounter Source Date/Time Date/Time Type Type Clinicians Facility Department ID 2021-03-[address] [facility] [id number] Common 14:11:12 Juventino [id number] [facility] [facility] [id number] Common 14:10:20 Juventino 59377 [facility] 2021-03-[address] [facility] [id number] Common 14:01:47 Juventino 10113 [facility] 2021-03-13 Outpatient Ellis, STLMLC STLMLC [id number] Common 13:41:05 Juventino 26862 [facility] 2021-03-13 Outpatient Ellis, STLMLC STLMLC [id number] Common 13:22:20 Juventino 90649 [facility] 2021-03-13 Outpatient Ellis, STLMLC STLMLC [id number] Common 13:01:46 Juventino 68030 [facility] 2021-03-13 Outpatient Ellis, STLMLC STLMLC [id number] Common 12:25:28 Juventino 49421 [facility] 2021-03-13 Outpatient Ellis, STLMLC STLMLC [id number] Common 12:22:12 Juventino 93670 [facility] 2021-03-13 Outpatient Ellis, STLMLC STLMLC [id number] Common 12:18:36 Juventino 10943 [facility] 2021-03-13 Outpatient Ellis, STLMLC STLMLC [id number] Common 12:11:37 Juventino 24481 [facility] 2021-03-13 Outpatient Millusman, STLMLC STLMLC [id number] Common 11:10:58 Judy 61061 [facility] 2021-03-13 Outpatient Millender, STLMLC STLMLC [id number] Common 11:07:25 Judy 55660 [facility] 2020-12-17 Outpatient R HALINAFLETCHERTRINA [facility] [id number] Univers 12:05:12 DONALD Tinsley [facility] 2020-12-17 [facility] [id number] [facility] 10:24:27 DONALD Tinsley [facility] 2021-11-21 2021-11-22 Emergency E CHARAN, MHFB MHFB [id number] MHFB 19:07:00 00:38:00 DIONTE 2021-09-29 2021-09-29 Emergency E ATKINS, MHFB MHFB [id number] MHFB 11:34:00 15:01:00 JORGE 2021-08-27 2021-08-28 Emergency E MARIELLE, MHFB MHFB [id number] MHFB 23:13:00 01:39:00 CONOR 2021-08-20 2021-08-24 Inpatient E ANA MARIA, MHFB MED [id number] MHFB 13:43:00 19:20:00 AMIR 2021-08-13 2021-08-14 Emergency E MILLY, MHFB MHFB [id number] MHFB 21:07:00 01:31:00 JORGE 2021-08-13 2021-08-13 Emergency E NAVAS, [facility] ECC [id number] [place] 18:57:00 20:58:00 [facility] [place] 2021-07-20 2021-07-20 Emergency E HERNANDEZ PATEL [facility] ECC [id number] [place] 07:23:00 10:32:00 [facility] [place] 2021-07-14 2021-07-14 Emergency E , [facility] ECC [id number] [place] 12:56:00 16:40:00 WASIM [facility] [place] 2021-07-08 2021-07-09 [facility] [id number] [place] 21:52:00 04:39:00 WADE [facility] [place] 2021-07-04 2021-07-04 Emergency E ALFONSO, MHBL MHBL [id number] MHBL 10:28:00 15:00:00 ANG 2021-06-28 2021-06-28 Emergency E KHANRONALDO Irby [id number] [place] 01:07:00 03:35:00 [facility] [place] 2021-06-26 2021-06-26 Emergency E KADEN, [facility] WWECC [id number] [place] 18:17:00 22:30:00 ASTRID [facility] [place] 2021-05-28 2021-05-28 Emergency E VINES, [facility] ECC [id number] [place] 14:46:00 19:50:00 [facility] 2021-05-28 2021-05-28 [facility] [id number] Co mmon 00:00:00 00:00:00 [facility] 2021-05-14 2021-05-14 (TEL) STLMLC STLMLC [id number] Co mmon 00:00:00 00:00:00 [facility] 2021-03-28 2021-03-28 Emergency E [facility] [id number] [place] 19:49:00 22:44:00 [facility] 2021-01-30 2021-01-30 (TEL) STLMLC STLMLC [id number] Co mmon 00:00:00 00:00:00 [facility] 2021-01-17 2021-01-17 OFFICE STLMLC STLMLC [id number] Co mmon 00:00:00 00:00:00 VISIT EST Spir it PT LEVEL 3 - [facility] 2021-01-15 2021-01-15 [facility] [id number] [place] 14:05:00 17:57:00 [facility] 2021-01-07 2021-01-07 (TEL) STLMLC STLMLC [id number] Co mmon 00:00:00 00:00:00 [facility] 2020-12-28 2020-12-28 [facility] [id number] [place] 20:33:00 23:42:00 [facility] 2020-12-27 2020-12-27 OFFICE STLMLC STLMLC [id number] Co mmon 00:00:00 00:00:00 VISIT EST Spir it PT LEVEL 3 - [facility] 2020-09-29 2020-09-29 [facility] [id number] [place] 19:46:00 23:15:00 [facility] 2020-09-27 2020-09-27 OFFICE STLMLC STLMLC [id number] Co mmon 00:00:00 00:00:00 VISIT EST Spir it PT LEVEL 3 [facility] 2020-09-19 2020-09-19 Surgery Kiesha [facility] [id number] [facility] 11:35:00 12:26:00 Donald tinsley [id number] [id number] [id number] [facility] [address] 2020-09-19 2020-09-19 [facility] [id number] Univers 09:21:00 11:55:00 Encounter Donald tinsley [id number] [id number] [id number] [facility] [address] 2020-09-18 2020-09-18 Laboratory Only, Adc Test [facility] [id number] [facility] 12:44:53 12:59:53 Only Donald Champagne 350.1.1 3.10 [id number] [id number] [facility] [address] 2020-09-18 2020-09-18 Outpatient R [facility] [id number] Univers 09:15:00 09:15:00 DONALD Tinsley o f [facility] 2020-09-11 2020-09-11 Orders Doctor ARUNA [id number] Univers 00:00:00 00:00:00 Only Unassigned, NORBERTO [id number] [facility] [place] [facility] [id number] Jakub as [id number] [facility] [address] 2020-09-10 2020-09-10 Outpatient R [facility] [id number] Univers 10:00:00 10:00:00 DONALD Tinsley o f [facility] 2020-09-03 2020-09-[address] [facility] [id number] Co mmon 00:00:00 00:00:00 VISIT EST Spir it PT LEVEL 3 - [facility] 2020-08-21 2020-08-26 Inpatient E CINDY, MHJANNET MED [id number] BL 16:11:00 14:10:00 MILIND 2020-08-17 2020-08-17 (TEL) STLMLC STLMLC [id number] Co mmon 00:00:00 00:00:00 [facility] 2020-07-04 2020-07-04 OFFICE STLMLC STLMLC [id number] Co mmon 00:00:00 00:00:00 VISIT EST Spir it PT LEVEL 3 [facility] 2020-06-25 2020-06-25 (TEL) STLMLC STLMLC [id number] Co mmon 00:00:00 00:00:00 [facility] 2020-06-05 2020-06-05 OFFICE STLMLC STLMLC [id number] Co mmon 00:00:00 00:00:00 VISIT EST Spir it PT [facility] [place] 2020-04-18 2020-04-18 Outpatient STLMLC STLMLC [id number] Common 00:00:00 00:00:00 [facility] 2020-04-10 2020-04-10 Outpatient STLMLC STLMLC [id number] Common 00:00:00 00:00:00 [facility] 2020-03-27 2020-03-27 Outpatient STLMLC STLMLC [id number] Common 00:00:00 00:00:00 [facility] 2020-03-14 2020-03-14 Outpatient STLMLC STLMLC [id number] Common 00:00:00 00:00:00 [facility] 2020-02-22 2020-02-22 Outpatient STLMLC STLMLC [id number] Common 00:00:00 00:00:00 [facility] 2019-06-10 2019-06-10 Emergency E VISHNYAKOVA MHBL MHBL [id number] MHBL 11:10:00 14:53:00 KYLAH 2019-05-15 2019-05-17 Inpatient [facility] [id number] Memoria 20:45:00 00:33:00 jess Holman l [facility] 2019-05-15 2019-05-16 Inpatient LATRICE, MHSE MED [id number] MH 15:45:00 19:33:[address] [facility] 2019-05-15 2019-05-16 Outpatient Latrice, POLYSE MHSE [id number] 15:45:00 19:33:00 Kike Patino 2019-05-12 2019-05-12 [facility] [id number] Common 13:55:00 13:55:00 t [facility] [address] [facility] 2019-04-15 2019-04-15 [facility] [id number] Common 14:26:00 14:26:00 t [facility] [address] [facility] 2019-03-30 2019-03-30 [facility] [id number] Common 15:15:00 15:15:00 t [facility] [address] [facility] 2018-07-21 2018-07-21 [facility] [id number] Memoria 15:37:15 20:41:00 jess Holman 25 [facility] 2018-07-21 2018-07-21 Outpatient Wali MHPL MHPL [id number] 10:37:15 15:41:00 Kylah 25 2018-07-21 2018-07-21 Emergency E MHBL MHBL [id number] MHBL 10:37:00 10:37:00 2018-06-08 2018-06-09 [facility] [id number] Memoria 17:58:00 01:09:00 jess Holman 24 [facility] 2018-06-08 2018-06-08 Outpatient Myurova-A MHPL MHPL [id number] 12:58:00 20:09:00 phyllishowardBarryya 2016-09-26 2016-09-27 [facility] [id number] Memoria 21:15:00 01:22:00 jess Holman 23 [facility] 2016-09-26 2016-09-26 Outpatient CRISTI Ellis MHPL [id number] 16:15:00 20:22:00 Waylon Diego Bry 2016-09-04 2016-09-09 [facility] [id number] Memoria 21:12:00 17:40:00 jess Holman 22 [facility] 2016-09-04 2016-09-[address] MHPL [id number] 16:12:00 12:40:00 Aydee 22 u 2016-08-17 2016-08-17 [facility] [id number] Memoria 02:47:00 05:34:00 r Kinney 21 [facility] 2016-08-16 2016-08-[address] [id number] 21:47:00 00:34:00 Gene 21 2016-07-02 2016-07-03 [facility] [id number] Memoria 22:37:00 02:36:00 r [place] 20 [facility] 2016-07-02 2016-07-02 Outpatient Contreras [facility] [id number] 17:37:00 21:36:00 Cade Agee 20 2016-06-25 2016-06-26 [facility] [id number] Memoria 21:54:00 04:14:00 r [place] 19 [facility] 2016-06-25 2016-06-25 Outpatient Malya, MHPL PL [id number] 16:54:00 23:14:00 Lisandro Reveles 2016-06-04 2016-06-04 [facility] [id number] Memoria 00:01:00 04:49:00 r [place] 18 [facility] 2016-06-03 2016-06-03 Outpatient Rhonda, PL PL [id number] 19:01:00 23:49:00 Waylon Londono 2016-05-14 2016-05-14 [facility] [id number] Memoria 18:35:00 23:07:00 r [place] 17 [facility] 2016-05-14 2016-05-14 Outpatient Olade, MHPL PL [id number] 13:35:00 18:07:00 Katy 17 Oyeyemi 2015-12-18 2015-12-25 [facility] [id number] Memoria 18:58:00 18:56:00 r [place] 16 [facility] 2015-12-18 2015-12-25 [place] [id number] 13:58:00 12:56:00 Rabiat 16 [place] 2015-09-21 2015-09-21 EC [facility] [id number] Memoria 09:42:00 12:53:00 Emergency r [place] 15 l [facility] 2015-09-21 2015-09-21 Outpatient Moisés, MHPL PL [id number] 04:42:00 07:53:00 Pura 15 2015-08-13 2015-08-13 EC [facility] [id number] Memoria 08:47:00 13:27:00 Emergency r [place] 14 l [facility] 2015-08-13 2015-08-13 Outpatient Catholic, MHSE MHSE [id number] 03:47:00 08:27:00 Nadim B 14 2015-08-10 2015-08-11 EC [facility] [id number] Memoria 22:12:00 02:59:00 Emergency r [place] 13 l [facility] 2015-08-10 2015-08-10 [place]patient [place] [id number] 17:12:00 21:59:00 Brian 13 Prabhakar 2015-07-29 2015-07-30 OBS [facility] [id number] Memoria 20:57:00 22:05:00 Observatio r [place] 12 l n Patient [facility] 2015-07-29 2015-07-[address] MHPL [id number] 15:57:00 17:05:00 Uddin 12 2015-07-28 2015-07-28 EC [facility] [id number] Memoria 14:45:00 17:25:00 Emergency r [place] 11 l [facility] 2015-07-28 2015-07-28 Outpatient Bryn, MHPL MHPL [id number] 09:45:00 12:25:00 Uli Hager 2013-02-21 2013-02-21 Emergency nullFlavo [id number] Memoria 14:47:00 19:08:00 r [place] 10 l [place] 2013-02-21 2013-02-21 Outpatient 2.16.840. 2.16.840.1. 3 [id number] Memoria 14:47:00 19:08:00 [id number]. [id number] l 3.615.0.1 5.0.100 Luke n 00 [facility] 2013-01-20 2013-01-20 Emergency nullFlavo [id number] Memoria 10:35:00 20:00:00 [facility] 09 [facility] 2013-01-20 2013-01-20 Outpatient 2.16.840. 2.16.840.1. 3 [id number] Memoria 10:35:00 20:00:00 [id number]. [id number] l 3.615.0.1 5.0.100 Luke n 00 [facility] 2013-01-05 2013-01-07 Inpatient nullFlavo [id number] Memoria 11:53:00 12:55:00 [facility] 08 [facility] 2013-01-03 2013-01-07 Outpatient 2.16.840. 2.16.840.1. 3 [id number] Memoria 18:38:00 12:55:00 [id number]. [id number] l 3.615.0.1 5.0.100 Luke n 00 [facility] 2012-12-15 2012-12-16 Outpatient 2.16.840. 2.16.840.1. 3 [id number] Memoria 19:10:00 02:46:00 [id number]. [id number] l 3.615.0.1 5.0.100 Luke n 00 [facility] 2012-12-15 2012-12-16 Outpatient 2.16.840. 2.16.840.1. 3 [id number] Memoria 19:10:00 02:46:00 [id number]. [id number] l 3.615.0.1 5.0.100 Luke n 00 [facility] 2012-12-15 2012-12-16 Emergency nullFlavo [id number] Memoria 19:10:00 02:46:00 [facility] 07 [facility] 2012-08-18 2012-08-18 Emergency nullFlavo [id number] Memoria 16:38:00 19:45:00 [facility] 2012-07-05 2012-07-05 Emergency nullFlavo [id number] Memoria 09:27:00 14:43:00 [facility] 05 [facility] 2012-04-20 2012-04-27 Inpatient nullFlavo [id number] Memoria 23:51:00 14:05:00 [facility] 04 [facility] 2012-03-29 2012-03-29 Emergency nullFlavo [id number] Memoria 06:19:00 10:19:00 [facility] 03 froylan [place] 2012-02-24 2012-02-24 Emergency nullFlavo [id number] Memoria 07:53:00 11:32:00 [facility] 2011-08-08 2011-08-08 Emergency nullFlavo [id number] Memoria 15:16:00 22:26:00 [facility] [place] Results Test Description Test Time Test Comments Results Result Comments Source URINE CULTURE 2021-08-16 10:37:00 Test Item Value Reference Range Interpretation Comme nts Culture Observations (test code = COB1) THREE OR MORE SPECIES OF BA CTERIA ISOLATED. PROBABLE CONTAMINATION. Culture Observations (test code = IDENTIFICATION AND SUSCEPTIBILITY NOT COB17) INDICATED. RECOLLECTION RECOMMENDED URINALYSIS WITH MICRO *WW*2021-08-13 20:48:00 Test Item Value Reference Range Interpretation [...] NEGATIVE WBC UR (test code = UWBC) 10 /HPF 0-5 H RBC UR (test code = URBC) 2 /HPF 0-2 EPITH UR (test code = UEPC) FEW /LPF FEW BACTERIA UR (test code = UBACT) FEW /HPF NONE A CAST UR (test code = CAST) /LPF NONE CRYSTAL UR (test code = CRYU) / LPF NONE MUCUS UR (test code = MUC) FEW / HPF NONE A AMORPH UR (test code = SYDNI) / HPF NONE TRICH UR (test code = UTRICH) /HPF NONE YEAST UR (test code = UY) /HPF NONE SPERM UR (test code = USPERM) /HPF NONE AMYLASE AND LIPASE 2021-08-13 20:37:00 Test Item Value Reference Range Interpretation Comments AMYLASE (test code = 10A) 43 U/L 28-100 LIPASE (test code = 60A) 54 IU/L 12-53 H COMPREHENSIVE METABOLIC LION 2021-08-13 20:37:00 Test Item Value Reference Range Interpretation Comments GLUCOSE (test code 102 mg/dL 75-100 H = 06D) SODIUM (test code 138 mmol/L 136-145 = 01A) POTASSIUM (test 3.8 mmol/L 3.6-5.1 code = 01B) CHLORIDE (test 103 mmol/L 98-107 code = 04A) CO2 (test code = 24 mmol/L 20-31 02A) ANION GAP (test 14.8 mmol/L code = ANG) BUN (test code = 6 mg/dL 9-23 L 05D) CREATININE (test 0.8 mg/dL 0.6-1.0 code = 03E) GFR (test code = 88 See_Comment L [Automated GFR) mL/min/1.73m\\S\\2 message] Th e system which generated this result transmit evin reference range : >=90. The reference range was not used to interpret this result as normal/abnormal . GFR 102 See_Comment [Automated GABONESE (test mL/min/1.73m\\S\\2 message] The code = GFRAA) system which generated this result transmit evin reference range : >=90. The reference range was not used to interpret this result as normal/abnormal . EGFR (test code = eGFR BY EGFR) CKD-EPI CALCULATION IS NOT RECOMMENDED FOR PATIENTS UNDER 18 YEARS OF AGE. BUN/CREA (test 8 12-20 L code = BCR) CALCIUM (test code 9.4 mg/dL 8.3-10.6 = 09D) BILI TOTAL (test 0.7 mg/dL 0.2-1.0 code = 11A) PROTEIN (test code 8.4 g/dL 5.7-8.2 H = 07D) ALBUMIN (test code 4.8 g/dL 3.2-4.8 = 08D) GLOBULIN (test 3.6 g/dL 1.5-3.8 code = GLB) ALB/GLOB (test 1.3 1.0-2.6 code = AGRR) ALK PHOS (test 127 IU/L 46-116 H code = 35A) AST (test code = 221 IU/L See_Comment H [Automated 30A) message] The system which generated this result transmit evin reference range : <=33. The reference range was not used to interpret this result as normal/abnormal . ALT (test code = 127 IU/L 10-49 H 31A) TROPONIN I 2021-08-13 20:33:00 Test Item Value Reference Range Interpretation Comments TROPONIN I (test code = A84) <2.50 pg/mL 0.00-45.20 URINE MONOCLONAL 2021-08-13 20:26:00 Test Item Value Reference Range Interpretation Comments PREG UR (test code = PGU) NEGATIVE NEGATIVE CBC (INCLUDES AUTOMATED DIFFERENTIAL)*[id number] 20:23:00 Test Item Value Reference Range Interpretation Comments WBC (test code = WBC) 11.2 10\\S\\3/uL 4.5-11.0 H RBC (test code = RBC) 4.45 10\\S\\6/uL 4.20-5.60 HGB (test code = HBG) 13.8 g/dL 12.0-15.5 HCT (test code = HCT) 40.4 % 35.0-44.0 MCV (test code = MCV) 90.8 fL 81.0-99.0 MCH (test code = MCH) 31.0 pg 27.0-31.0 MCHC (test code = MCHC) 34.2 g/dL 32.0-36.0 RDW (test code = RDW) 13.2 % 11.5-14.5 PLT (test code = PLT) 369 10\\S\\3/uL 130-400 MPV (test code = MPV) 11.3 fL 9.4-12.4 NEUTROP # (test code = NE#) 6.2 10\\S\\3/uL 1.6-8.0 LYMPH # (test code = LY#) 3.7 10\\S\\3/uL 1.1-3.5 H MONOCYTE # (test code = MO#) 0.9 10\\S\\3/uL 0.0-1.1 EOSINOPH # (test code = EO#) 0.3 10\\S\\3/uL 0.0-0.7 BASOPHIL # (test code = BA#) 0.1 10\\S\\3/uL 0.0-0.3 IG # (test code = IG#) 0.07 10\\S\\3/uL 0.00-0.06 H NRBC # (test code = NRBC#) 0.00 10\\S\\3/uL 0.00-0.01 NEUTROPH % (test code = NE%) 55.3 % 35.0-73.0 LYMPH % (test code = LY%) 32.6 % 20.0-55.0 MONO % (test code = MO%) 8.2 % 2.5-10.0 EOSINOPH % (test code = EO%) 2.8 % 0.0-5.0 BASOPHIL % (test code = BA%) 0.5 % 0.0-2.0 IG % (test code = IG%) 0.6 % 0.0-0.8 NRBC% (test code = NRBC%) 0.0 % 0.0-0.2 MANDIFF (test code = WMDIFF) NO NO RBC MORPH (test code = NORMAL WRBCMOR) CT ABDOMEN AND PELVIS WITHOUT CONTRAST *WW*2021-07-20 09:32:26 [facility] : 1975 Sex: FCT OF THE ABDOMEN AND PELVIS WITHOUT CONTRASTLocation H 31HISTORY: Abdominal painTECHNIQUE:5 mm noncontrast axialCT of abdomen and pelvis. No PO contrast was administered. The images were reviewed in soft tissue, lung and bone windows. Sagittal and coronal images were reformatted. One or more the following dose reduction techniques is utilized: Use of iterative reconstruction, automated exposure control, adjustme nt of the mAs and Kv for the patient's weight. DLP 776.88 mGy-cm. COMPARISON: CT abdomen and pelvis dated 07/08/2021FINDINGS:Lung bases: Clear.Liver: Diffuse low attenuation in liver compatible with steatosis. Liver measures 19 cm craniocaudal, slightly enlarged.Gallbladder: Status post cholecystectomy. No biliary dilatation.Pancreas: Nonspecific diffuse low-attenuation in pancreas without discrete surrounding fat stranding. Correlate with pancreatic enzymes.Spleen: No significant abnormality.Kidneys: No evidence of renal calculi or hydronephrosis.Adrenals: No significant abnormality.Bowel: No significant abnormality.Appendix: Well identified and normal.Peritoneum: No free air or free fluid.Bladder: No significant abnormality.Uterus: Uterus is absentAdnexal regions: No fullness in the adnexal region.Bone Windows: No significant abnormality.Vascular:No significant abnormality.Lymph Nodes:No significant abnormality.IMPRESSION:1. Nonspecific diffuse low-attenuation in pancreas without discrete surrounding fat stranding. Correlate with pancreatic enzymes.2. Status post cholecystectomy. No biliary dilatation.3. Hepatic steatosis, diffuse, with hepatomegaly4. Normal appendix. No bowel obstruction, free air or free fluid.Electronically signed by: Valeri Jameson MD 07/20/2021 9:32 AM CDT [id number] GLUCOSE- LAB USE [id number] 09:28:00 Test Item Value Reference Range Interpretation Comments GLUCOMETER (test code = 102 mg/dL 70-100 H Mete r ID: [id number]) [id number] tor: None PRO TIME AND PTT *WW*2021-07-20 08:37:00 Test Item Value Reference Range Interpretation Comments PT (test code = 13.1 s 9.8-13.6 TT) INR (test code = 1.1 INR) INRH (test code = SUGGESTED THERAPEUTIC INRH) RANGE FOR INR: 2.5 - 3.5 For Patients with Prosthetic Valves or Patients with recurrent Thromboembolic Events 2.0 - 3.0 For Most Other Applications PTT (test code = 27.5 s 20.2-38.0 PTT) PTTH (test code = To monitor the PTTH) effectiveness of heparin, we offer the Anti-Xa (Heparin Assay). It can be used for either unfractionated or LMW Heparin. Order Code is ANTI-XA URINALYSIS WITH MICRO *WW*2021-07-20 08:06:00 Test Item Value Reference Range Interpretation Comments [...] NEGATIVE UROBIL UR (test code = UROQ) 1.0 EU/dL 0.2-1.0 NITRITE UR (test code = NITRITE) NEGATIVE NEGATIVE BLOOD UR (test code = UA BLOOD) TRACE-INTACT NEGATIVE A LEUK ES UR (test code = LEUK) NEGATIVE NEGATIVE WBC UR (test code = UWBC) 3 /HPF 0-5 RBC UR (test code = [...] = USPERM) /HPF NONE AMYLASE AND LIPASE *WW*2021-07-20 08:04:00 Test Item Value Reference Range Interpretation Comments AMYLASE (test code = 10A) 40 U/L 28-100 LIPASE (test code = 60A) 35 IU/L 12-53 COMPREHENSIVE METABOLIC LION *WW*2021-07-20 08:04:00 Test Item Value Reference Range Interpretation Comments GLUCOSE (test code 105 mg/dL 75-100 H = 06D) SODIUM (test code 135 mmol/L 136-145 L = 01A) POTASSIUM (test 4.0 mmol/L 3.6-5.1 code = 01B) CHLORIDE (test 100 mmol/L 98-107 code = 04A) CO2 (test code = 28 mmol/L 20-31 02A) ANION GAP (test 11.0 mmol/L code = ANG) BUN (test code = 7 mg/dL 9-23 L 05D) CREATININE (test 0.8 mg/dL 0.6-1.0 code = 03E) GFR (test code = 88 See_Comment L [Automated GFR) mL/min/1.73m\\S\\2 message] Th e system which generated this result transmit evin reference range : >=90. The reference range was not used to interpret this result as normal/abnormal . GFR 102 See_Comment [Automated GABONESE (test mL/min/1.73m\\S\\2 message] The code = GFRAA) system which generated this result transmit evin reference range : >=90. The reference range was not used to interpret this result as normal/abnormal . EGFR (test code = eGFR BY EGFR) CKD-EPI CALCULATION IS NOT RECOMMENDED FOR PATIENTS UNDER 18 YEARS OF AGE. BUN/CREA (test 9 12-20 L code = BCR) CALCIUM (test code 9.1 mg/dL 8.3-10.6 = 09D) BILI TOTAL (test 0.4 mg/dL 0.2-1.0 code = 11A) PROTEIN (test code 8.2 g/dL 5.7-8.2 = 07D) ALBUMIN (test code 4.7 g/dL 3.2-4.8 = 08D) GLOBULIN (test 3.5 g/dL 1.5-3.8 code = GLB) ALB/GLOB (test 1.4 1.0-2.6 code = AGRR) ALK PHOS (test 119 IU/L 46-116 H code = 35A) AST (test code = 98 IU/L See_Comment H [Automated 30A) message] The system which generated this result transmit evin reference range : <=33. The reference range was not used to interpret this result as normal/abnormal . ALT (test code = 91 IU/L 10-49 H 31A) CBC (INCLUDES AUTOMATED DIFFERENTIAL)*[id number] 07:54:00 Test Item Value Reference Range Interpretation Comments WBC (test code = WBC) 11.3 10\\S\\3/uL 4.5-11.0 H RBC (test code = RBC) 4.52 10\\S\\6/uL 4.20-5.60 HGB (test code = HBG) 13.8 g/dL 12.0-15.5 HCT (test code = HCT) 40.6 % 35.0-44.0 MCV (test code = MCV) 89.8 fL 81.0-99.0 MCH (test code = MCH) 30.5 pg 27.0-31.0 MCHC (test code = MCHC) 34.0 g/dL 32.0-36.0 RDW (test code = RDW) 12.7 % 11.5-14.5 PLT (test code = PLT) 315 10\\S\\3/uL 130-400 MPV (test code = MPV) 11.3 fL 9.4-12.4 NEUTROP # (test code = NE#) 6.3 10\\S\\3/uL 1.6-8.0 LYMPH # (test code = LY#) 3.5 10\\S\\3/uL 1.1-3.5 MONOCYTE # (test code = MO#) 1.1 10\\S\\3/uL 0.0-1.1 EOSINOPH # (test code = EO#) 0.4 10\\S\\3/uL 0.0-0.7 BASOPHIL # (test code = BA#) 0.1 10\\S\\3/uL 0.0-0.3 IG # (test code = IG#) 0.06 10\\S\\3/uL 0.00-0.06 NRBC # (test code = NRBC#) 0.00 10\\S\\3/uL 0.00-0.01 NEUTROPH % (test code = NE%) 55.6 % 35.0-73.0 LYMPH % (test code = LY%) 30.7 % 20.0-55.0 MONO % (test code = MO%) 9.4 % 2.5-10.0 EOSINOPH % (test code = EO%) 3.2 % 0.0-5.0 BASOPHIL % (test code = BA%) 0.6 % 0.0-2.0 IG % (test code = IG%) 0.5 % 0.0-0.8 NRBC% (test code = NRBC%) 0.0 % 0.0-0.2 MANDIFF (test code = WMDIFF) NO NO RBC MORPH (test code = NORMAL WRBCMOR) COMPREHENSIVE METABOLIC LION *WW*2021-07-14 14:54:00 Test Item Value Reference Range Interpretation Comments GLUCOSE (test code 97 mg/dL 75-100 = 06D) SODIUM (test code 134 mmol/L 136-145 L = 01A) POTASSIUM (test 3.7 mmol/L 3.6-5.1 code = 01B) CHLORIDE (test 100 mmol/L 98-107 code = 04A) CO2 (test code = 26 mmol/L 20-31 02A) ANION GAP (test 11.8 mmol/L code = ANG) BUN (test code = 9 mg/dL 9-23 05D) CREATININE (test 1.0 mg/dL 0.6-1.0 code = 03E) GFR (test code = 67 See_Comment L [Automated GFR) mL/min/1.73m\\S\\2 message] Th e system which generated this result transmit evin reference range : >=90. The reference range was not used to interpret this result as normal/abnormal . GFR 78 See_Comment L [Automated GABONESE (test mL/min/1.73m\\S\\2 message] The code = GFRAA) system which generated this result transmit evin reference range : >=90. The reference range was not used to interpret this result as normal/abnormal . EGFR (test code = eGFR BY EGFR) CKD-EPI CALCULATION IS NOT RECOMMENDED FOR PATIENTS UNDER 18 YEARS OF AGE. BUN/CREA (test 9 12-20 L code = BCR) CALCIUM (test code 9.4 mg/dL 8.3-10.6 = 09D) BILI TOTAL (test 0.7 mg/dL 0.2-1.0 code = 11A) PROTEIN (test code 8.5 g/dL 5.7-8.2 H = 07D) ALBUMIN (test code 4.9 g/dL 3.2-4.8 H = 08D) GLOBULIN (test 3.6 g/dL 1.5-3.8 code = GLB) ALB/GLOB (test 1.4 1.0-2.6 code = AGRR) ALK PHOS (test 122 IU/L 46-116 H code = 35A) AST (test code = 133 IU/L See_Comment H [Automated 30A) message] The system which generated this result transmit evin reference range : <=33. The reference range was not used to interpret this result as normal/abnormal . ALT (test code = 109 IU/L 10-49 H 31A) AMYLASE AND LIPASE *WW*2021-07-14 14:49:00 Test Item Value Reference Range Interpretation Comments AMYLASE (test code = 10A) 34 U/L 28-100 LIPASE (test code = 60A) 29 IU/L 12-53 TROPONIN I *WW*2021-07-14 14:48:00 Test Item Value Reference Range Interpretation Comments TROPONIN I (test code = A84) <2.50 pg/mL 0.00-45.20 URINALYSIS WITH MICRO *WW*2021-07-14 14:42:00 Test Item Value Reference Range Interpretation Comments COLOR (test code = COLU) YELLOW YELLOW CLARITY (test code = CLA) SLT HAZY CLEAR A GLUCOSE UR (test code = UA NEGATIVE NEGATIVE GLUCOSE) BILI UR (test code = BILE) 1+ NEGATIVE A KETONES UR (test code = MADELEINE) TRACE NEGATIVE A SP GRAVITY (test code = SPGR) 1.025 1.005-1.030 PH UR (test code = PH) 6.0 4.5-8.0 PROTEIN UR (test code = PU) TRACE NEGATIVE A UROBIL UR (test code = UROQ) 2.0 EU/dL 0.2-1.0 H NITRITE UR (test code = NEGATIVE NEGATIVE NITRITE) BLOOD UR (test code = UA BLOOD) TRACE-INTACT NEGATIVE A LEUK ES UR (test code = LEUK) NEGATIVE NEGATIVE WBC UR (test code = UWBC) 2 /HPF 0-5 RBC UR (test code = URBC) 6 /HPF 0-2 H EPITH UR (test code = UEPC) MODERATE /LPF FEW A BACTERIA UR (test code = UBACT) MODERATE /HPF NONE A CAST UR (test code = CAST) /LPF NONE CRYSTAL UR (test code = CRYU) / LPF NONE MUCUS UR (test code = MUC) / HPF NONE AMORPH UR (test code = SYDNI) / HPF NONE TRICH UR (test code = UTRICH) /HPF NONE YEAST UR (test code = UY) /HPF NONE SPERM UR (test code = USPERM) /HPF NONE CBC (INCLUDES AUTOMATED DIFFERENTIAL)*[id number] 14:37:00 Test Item Value Reference Range Interpretation Comments WBC (test code = WBC) 12.3 10\\S\\3/uL 4.5-11.0 H RBC (test code = RBC) 4.65 10\\S\\6/uL 4.20-5.60 HGB (test code = HBG) 14.3 g/dL 12.0-15.5 HCT (test code = HCT) 42.0 % 35.0-44.0 MCV (test code = MCV) 90.3 fL 81.0-99.0 MCH (test code = MCH) 30.8 pg 27.0-31.0 MCHC (test code = MCHC) 34.0 g/dL 32.0-36.0 RDW (test code = RDW) 13.0 % 11.5-14.5 PLT (test code = PLT) 358 10\\S\\3/uL 130-400 MPV (test code = MPV) 11.1 fL 9.4-12.4 NEUTROP # (test code = NE#) 6.9 10\\S\\3/uL 1.6-8.0 LYMPH # (test code = LY#) 3.9 10\\S\\3/uL 1.1-3.5 H MONOCYTE # (test code = MO#) 1.1 10\\S\\3/uL 0.0-1.1 EOSINOPH # (test code = EO#) 0.4 10\\S\\3/uL 0.0-0.7 BASOPHIL # (test code = BA#) 0.1 10\\S\\3/uL 0.0-0.3 IG # (test code = IG#) 0.06 10\\S\\3/uL 0.00-0.06 NRBC # (test code = NRBC#) 0.00 10\\S\\3/uL 0.00-0.01 NEUTROPH % (test code = NE%) 55.8 % 35.0-73.0 LYMPH % (test code = LY%) 31.7 % 20.0-55.0 MONO % (test code = MO%) 8.5 % 2.5-10.0 EOSINOPH % (test code = EO%) 2.9 % 0.0-5.0 BASOPHIL % (test code = BA%) 0.6 % 0.0-2.0 IG % (test code = IG%) 0.5 % 0.0-0.8 NRBC% (test code = NRBC%) 0.0 % 0.0-0.2 MANDIFF (test code = WMDIFF) NO NO RBC MORPH (test code = NORMAL WRBCMOR) CT ABDOMEN AND PELVIS WITHOUT CONTRAST *WW*2021-07-09 00:23:00 [facility] : 1975 Sex: FCT abdomen and pelvis without IV contrast.Indication: June 28, 2021Location: [id number]: NoneTechnique: CT images of the abdomen and pelvis were obtained from the diaphragm to the pubic symphysis without the administration of intravenous contrast contrast. Coronal reformats are provided.One or more of the following dose reduction techniques were used: Automated exposure control, adjustment of the mA and/or kV according to patient size, and/or utilization of iterative reconstruction technique.Findings:Lungs bases: Unremarkable.Liver: Likely steatosisGallbladder: Surgically absent pancreas: Nonspecific pancreatic hypodensity is seen predominantly within the pancreatic headSpleen: Noncontrast appearance is unremarkable.Adrenal glands: Noncontrast appearance is unremarkable.Kidneys: Noncontrast appearance is unremarkable.Bowel: No bowel obstruction. The appendix is unremarkable.Peritoneum: No ascites or free ai rSkeletal: No acute fracture..Impression:Exam findings limited by the absence of oral and IV contrastNonspecific pancreatic hypodensity is seen predominantly within the pancreatic head. Further evaluation with MRI may be beneficial Additional exam findings as detailed aboveElectronically signed by: Anni Leary MD 07/09/2021 12:23 AM CDT [id number] METABOLIC LION *WW*2021-07-09 00:22:00 Test Item Value Reference Range Interpretation Comments GLUCOSE (test code 106 mg/dL 75-100 H = 06D) SODIUM (test code 136 mmol/L 136-145 = 01A) POTASSIUM (test 5.2 mmol/L 3.6-5.1 H code = 01B) CHLORIDE (test 100 mmol/L 98-107 code = 04A) CO2 (test code = 27 mmol/L 20-31 02A) ANION GAP (test 14.2 mmol/L code = ANG) BUN (test code = 6 mg/dL 9-23 L 05D) CREATININE (test 0.9 mg/dL 0.6-1.0 code = 03E) GFR (test code = 76 See_Comment L [Automated GFR) mL/min/1.73m\\S\\2 message] Th e system which generated this result transmit evin reference range : >=90. The reference range was not used to interpret this result as normal/abnormal . GFR 89 See_Comment L [Automated GABONESE (test mL/min/1.73m\\S\\2 message] The code = GFRAA) system which generated this result transmit evin reference range : >=90. The reference range was not used to interpret this result as normal/abnormal . EGFR (test code = eGFR BY EGFR) CKD-EPI CALCULATION IS NOT RECOMMENDED FOR PATIENTS UNDER 18 YEARS OF AGE. BUN/CREA (test 7 12-20 L code = BCR) CALCIUM (test code 9.2 mg/dL 8.3-10.6 = 09D) BILI TOTAL (test 0.8 mg/dL 0.2-1.0 code = 11A) PROTEIN (test code 8.3 g/dL 5.7-8.2 H = 07D) ALBUMIN (test code 4.8 g/dL 3.2-4.8 = 08D) GLOBULIN (test 3.5 g/dL 1.5-3.8 code = GLB) ALB/GLOB (test 1.4 1.0-2.6 code = AGRR) ALK PHOS (test 106 IU/L 46-116 code = 35A) AST (test code = 144 IU/L See_Comment H [Automated 30A) message] The system which generated this result transmit evin reference range : <=33. The reference range was not used to interpret this result as normal/abnormal . ALT (test code = 107 IU/L 10-49 H 31A) LIPASE SERUM WW2021-07-09 00:22:00 Test Item Value Reference Range Interpretation Comments LIPASE (test code = 60A) 32 IU/L 12-53 SERUM MONOCLONAL 2021-07-09 00:10:00 Test Item Value Reference Range Interpretation Comments PREG SRM (test code = PGS) NEGATIVE NEGATIVE CBC (INCLUDES AUTOMATED DIFFERENTIAL)*[id number] 00:03:00 Test Item Value Reference Range Interpretation Comments WBC (test code = WBC) 12.0 10\\S\\3/uL 4.5-11.0 H RBC (test code = RBC) 4.45 10\\S\\6/uL 4.20-5.60 HGB (test code = HBG) 13.8 g/dL 12.0-15.5 HCT (test code = HCT) 40.5 % 35.0-44.0 MCV (test code = MCV) 91.0 fL 81.0-99.0 MCH (test code = MCH) 31.0 pg 27.0-31.0 MCHC (test code = MCHC) 34.1 g/dL 32.0-36.0 RDW (test code = RDW) 12.9 % 11.5-14.5 PLT (test code = PLT) 321 10\\S\\3/uL 130-400 MPV (test code = MPV) 11.0 fL 9.4-12.4 NEUTROP # (test code = NE#) 7.0 10\\S\\3/uL 1.6-8.0 LYMPH # (test code = LY#) 3.5 10\\S\\3/uL 1.1-3.5 MONOCYTE # (test code = MO#) 1.0 10\\S\\3/uL 0.0-1.1 EOSINOPH # (test code = EO#) 0.4 10\\S\\3/uL 0.0-0.7 BASOPHIL # (test code = BA#) 0.1 10\\S\\3/uL 0.0-0.3 IG # (test code = IG#) 0.06 10\\S\\3/uL 0.00-0.06 NRBC # (test code = NRBC#) 0.00 10\\S\\3/uL 0.00-0.01 NEUTROPH % (test code = NE%) 58.2 % 35.0-73.0 LYMPH % (test code = LY%) 29.5 % 20.0-55.0 MONO % (test code = MO%) 8.1 % 2.5-10.0 EOSINOPH % (test code = EO%) 3.0 % 0.0-5.0 BASOPHIL % (test code = BA%) 0.7 % 0.0-2.0 IG % (test code = IG%) 0.5 % 0.0-0.8 NRBC% (test code = NRBC%) 0.0 % 0.0-0.2 MANDIFF (test code = WMDIFF) NO NO RBC MORPH (test code = NORMAL WRBCMOR) CT ABDOMEN AND PELVIS WITH CONTRAST*WW*2021-06-28 03:19:42 [facility] 1975 Sex: FExam: CT abdomen [...] Bhargav Jacques MD 06/28/2021 3:19 AM CDT [id number] AND LIPASE 2021-06-28 02:20:00 Test Item Value [...] code = 76 See_Comment L [Automated GFR) mL/min/1.73m\\S\\2 message] Th e system which generated this result transmit evin reference range : >=90. The reference range was not used to interpret this result as normal/abnormal . GFR 89 See_Comment L [Automated GABONESE (test mL/min/1.73m\\S\\2 message] The code = GFRAA) system which [...] IU/L 10-49 H 31A) CBC (INCLUDES AUTOMATED DIFFERENTIAL)*[id number] 01:38:00 Test Item Value Reference Range Interpretation Comments WBC (test code = WBC) 9.5 10\\S\\3/uL 4.5-11.0 RBC (test code = RBC) 4.20 10\\S\\6/uL 4.20-5.60 HGB (test code = HBG) 12.7 g/dL 12.0-15.5 HCT (test code = HCT) 38.5 % 35.0-44.0 MCV (test code = MCV) 91.7 fL 81.0-99.0 MCH (test code = MCH) 30.2 pg 27.0-31.0 MCHC (test code = MCHC) 33.0 g/dL 32.0-36.0 RDW (test code = RDW) 12.7 % 11.5-14.5 PLT (test code = PLT) 287 10\\S\\3/uL 130-400 MPV (test code = MPV) 11.0 fL 9.4-12.4 NEUTROP # (test code = NE#) 4.6 10\\S\\3/uL 1.6-8.0 LYMPH # (test code = LY#) 3.6 10\\S\\3/uL 1.1-3.5 H MONOCYTE # (test code = MO#) 0.8 10\\S\\3/uL 0.0-1.1 EOSINOPH # (test code = EO#) 0.3 10\\S\\3/uL 0.0-0.7 BASOPHIL # (test code = BA#) 0.1 10\\S\\3/uL 0.0-0.3 IG # (test code = IG#) 0.04 10\\S\\3/uL 0.00-0.06 NRBC # (test code = NRBC#) 0.00 10\\S\\3/uL 0.00-0.01 NEUTROPH % (test code = NE%) [...] CT ABDOMEN AND PELVIS WITH CONTRAST*WW*2021-06-26 21:47:59 [facility] 1975 Sex: FExam: CT abdomen and pelvis with contrast.Location: H 12History: Lower abdominal painCOMPARISON: 05/28/2021.Technique: Enhanced spiral slices were taken from the domes of the diaphragm, through the pubic symphysis.Coronal reformations were performed. One or more of the following dose reduction techniques were used: Automated exposure control, adjustment of the mA and/or kV according to patient size, and/or utiliz ation of iterative reconstruction technique.Findings:The liver is diffusely of decreased attenuationconsistent fatty infiltration. No mass is seen. The intra- and extrahepatic biliary tree is normal. The hepatic and portal veins are patent. The gallbladder has been removed. The pancreas is normal. Thepancreatic duct is normal in caliber. The spleen and adrenal glands are normal in size and shape.Thekidneys are unremarkable. No perinephric fluid collections or hydronephrosis is seen.The large and small intestine are normal in caliber. The appendix is normal. No lymphadenopathy is found in the abdomen or the pelvis. No free fluid is seen.The uterus has been removed. The pelvic structures are otherw ise unremarkable.The lung bases are clear.No incidental findings are noted.Impression:1. No intra-abdominal findings.2. Fatty liver.3. Status post cholecystectomy.4. Status post hysterectomy.Electronically signed by: Bhargav Jacques MD 06/26/2021 9:47 PM CDT [id number] WITH MICRO *WW*2021-06-26 20:27:00 Test Item Value [...] code = 88 See_Comment L [Automated GFR) mL/min/1.73m\\S\\2 message] Th e system which generated this result transmit evin reference range : >=90. The reference range was not used to interpret this result as normal/abnormal . GFR 102 See_Comment [Automated GABONESE (test mL/min/1.73m\\S\\2 message] The code = GFRAA) system which [...] A84) <2.50 pg/mL 0.00-45.20 CBC (INCLUDES AUTOMATED DIFFERENTIAL)*[id number] 19:47:00 Test Item Value Reference Range Interpretation Comments WBC (test code = WBC) 13.4 10\\S\\3/uL 4.5-11.0 H RBC (test code = RBC) 4.42 10\\S\\6/uL 4.20-5.60 HGB (test code = HBG) 13.6 g/dL 12.0-15.5 HCT (test code = HCT) 40.5 % 35.0-44.0 MCV (test code = MCV) 91.6 fL 81.0-99.0 MCH (test code = MCH) 30.8 pg 27.0-31.0 MCHC (test code = MCHC) 33.6 g/dL 32.0-36.0 RDW (test code = RDW) 12.9 % 11.5-14.5 PLT (test code = PLT) 343 10\\S\\3/uL 130-400 MPV (test code = MPV) 11.7 fL 9.4-12.4 NEUTROP # (test code = NE#) 7.0 10\\S\\3/uL 1.6-8.0 LYMPH # (test code = LY#) 4.9 10\\S\\3/uL 1.1-3.5 H MONOCYTE # (test code = MO#) 1.1 10\\S\\3/uL 0.0-1.1 EOSINOPH # (test code = EO#) 0.3 10\\S\\3/uL 0.0-0.7 BASOPHIL # (test code = BA#) 0.1 10\\S\\3/uL 0.0-0.3 IG # (test code = IG#) 0.07 10\\S\\3/uL 0.00-0.06 H NRBC # (test code = NRBC#) 0.00 10\\S\\3/uL 0.00-0.01 NEUTROPH % (test code = NE%) [...] ABDOMEN AND PELVIS WITHOUT CONTRAST *WW*2021-05-28 19:03:59 [facility] : 1975 Sex: FEXAMINATION:CT ABDOMEN AND PELVIS WITHOUT CONTRAST *WW*CLINICAL INDICATION:Female, 45 years old with Abdominal painTECHNIQUE: Thin section axial noncontrast contiguous images were obtained through the abdomen and pelvis followed by coronal and sagittal multiplanar reformations.One or more of the following dose reduction techniques were used: Automated exposure control, adjustment of the mA and/or kV according to patient size, and/or iterative reconstruction. COMPARISON:NoneFINDINGS:Characterization of the solid organs is limited by lack of contrast media.Lower Chest: Visualized lung bases are clear. Heart is normal in size. No pericardial or pleural effusion.Liver: Normal in size and contour, but diffusely infiltrated by fat. Bile ducts are of normal caliber.Gallbladder: Surgically absent.Pancreas: Normal appearance.Spleen: Normal in size and contour.Adrenals: Normal configuration.Kidneys and ureters: Normalsize and contour. No hydronephrosis.Bladder/Reproductive Organs: Normal in [...] Valerio Prakash MD 05/28/2021 7:03 PM CDT [id number] METABOLIC LION *WW*2021-05-28 17:33:00 Test Item Value Reference Range [...] (test code = 108 See_Comment [Automated GFR) mL/min/1.73m\\S\\2 message] Th e system which generated this result transmit evin reference range : >=90. The reference range was not used to interpret this result as normal/abnormal . EGFR (test code = eGFR BY EGFR) CKD-EPI CALCULATION IS NOT RECOMMENDED FOR PATIENTS UNDER 18 YEARS OF AGE. BUN/CREA (test 12 -20 code = BCR) CALCIUM (test code 9.2 [...] = PGU) NEGATIVE NEGATIVE CBC (INCLUDES AUTOMATED DIFFERENTIAL)*[id number] 16:40:00 Test Item Value Reference Range Interpretation Comments WBC (test code = WBC) 12.0 10\\S\\3/uL 4.5-11.0 H RBC (test code = RBC) 4.06 10\\S\\6/uL 4.20-5.60 L HGB (test code = HBG) 12.4 g/dL 12.0-15.5 HCT (test code = HCT) 37.3 % 35.0-44.0 MCV (test code = MCV) 91.9 fL 81.0-99.0 MCH (test code = MCH) 30.5 pg 27.0-31.0 MCHC (test code = MCHC) 33.2 g/dL 32.0-36.0 RDW (test code = RDW) 13.1 % 11.5-14.5 PLT (test code = PLT) 309 10\\S\\3/uL 130-400 MPV (test code = MPV) 10.8 fL 9.4-12.4 NEUTROP # (test code = NE#) 7.0 10\\S\\3/uL 1.6-8.0 LYMPH # (test code = LY#) 3.6 10\\S\\3/uL 1.1-3.5 H MONOCYTE # (test code = MO#) 0.9 10\\S\\3/uL 0.0-1.1 EOSINOPH # (test code = EO#) 0.3 10\\S\\3/uL 0.0-0.7 BASOPHIL # (test code = BA#) 0.1 10\\S\\3/uL 0.0-0.3 IG # (test code = IG#) 0.11 10\\S\\3/uL 0.00-0.06 H NRBC # (test code = NRBC#) 0.00 10\\S\\3/uL 0.00-0.01 NEUTROPH % (test code = NE%) [...] Interpretation Comments WBC (test code = 15.6 10\\S\\3/uL 4.5-11.0 H WBC) RBC (test code = 4.10 10\\S\\6/uL 4.20-5.60 L RBC) HGB (test code = 12.6 g/dL 12.0-15.5 HBG) HCT (test code = 37.7 % 35.0-44.0 HCT) MCV (test code = 92.0 fL 81.0-99.0 MCV) MCH (test code = 30.7 pg 27.0-31.0 MCH) MCHC (test code = 33.4 g/dL 32.0-36.0 MCHC) RDW (test code = 12.8 % 11.5-14.5 RDW) PLT (test code = 340 10\\S\\3/uL 130-400 PLT) MPV (test code = 10.8 fL 9.4-12.4 MPV) NEUTROP # (test 9.2 10\\S\\3/uL 1.6-8.0 H code = NE#) LYMPH # (test 4.5 10\\S\\3/uL 1.1-3.5 H code = LY#) MONOCYTE # (test 1.3 10\\S\\3/uL 0.0-1.1 H code = MO#) EOSINOPH # (test 0.3 10\\S\\3/uL 0.0-0.7 code = EO#) BASOPHIL # (test 0.1 10\\S\\3/uL 0.0-0.3 code = BA#) IG # (test code = 0.13 10\\S\\3/uL 0.00-0.06 H IG#) NRBC # (test code 0.00 10\\S\\3/uL 0.00-0.01 = NRBC#) NEUTROPH % (test 59.4 [...] [Automated message] code = ATYL) The system [facility] h generated this result transmit evin reference [...] (test code = 109 See_Comment [Automated GFR) mL/min/1.73m\\S\\2 message] Th e system which generated this result transmit evin reference range : >=90. The reference range was not used to interpret this result as normal/abnormal . GFR 127 See_Comment [Automated GABONESE (test mL/min/1.73m\\S\\2 message] The code = GFRAA) system which [...] ABDOMEN AND PELVIS WITHOUT CONTRAST 2021-03-28 20:55:34 [facility] : 1975 Sex: FEXAM: CT abdomen and pelvis without contrastDictation location: H10 INDICATION: Abdominal painCOMPARISON: CT abdomen and pelvis on 01/15/2021 and 08/01/2020TECHNIQUE: Axial images of the abdomen and pelvis were obtained without contrast. Coronal and sagittal reformatted images were performed. DISCUSSION:Lower thorax: A 4 mm noncalcified right lower lobe nodule is unchanged from 08/01/2020 and is very likely benign.In the absence of a known cancer history, if the patient is low risk, no follow-up is recommended based on 2017 Patricio Society criteria.Hepatobiliary: Moderate to marked hepatic steatosis is noted. No gross evidence of liver lesion is seen. No biliary ductal dilatation.Gallbladder: Surgically absent.Spleen: Unremarkable.Pancreas: Partial fatty atrophy. No obvious mass or ductal dilatation is seen.Kidneys: No urinary tract calculi, hydronephrosis, or gross evidence of solid renal mass.Adrenals: Unr emarkable.Lymph nodes: No lymphadenopathy.Peritoneum/retroperitoneum: No intraabdominal free air or free fluid.Vessels: Mild atherosclerotic calcification, without abdominal aortic aneurysm.Pelvic organs/bladder: The uterus is surgically absent. No adnexal abnormalities are seen. The bladder is unremarkable.Bowel: Moderate retained stool is seen within the colon. The appendix is normal. No abnormal bowel wall thickening or bowel obstruction is seen.Bones/soft tissues: No fracture or evidence of bonyneoplastic process. No hernia is seen.IMPRESSION:1. Normal appendix. No evidence of acute abdominal i nflammation.2. Moderate retained stool within the colon could reflect constipation in the appropriate clinical scenario. There is no bowel obstruction.3. Additional findings include hepatic steatosis, prior cholecystectomy, and prior hysterectomy.One or more of the following dose reduction techniques were used: Automated exposure control, adjustment of the mA and/or kV according to patient size, and/or utilization of iterative reconstruction technique.DLP: 904 mGy-cm CTDI 18 mGyElectronically signedby: Yordy Noel MD 03/28/2021 8:55 PM [facility] [id number] *WW* 2021-03-28 20:33:00 Test Item Value Reference [...] WAUAM) NO NO CT STONE PROTOCOL STUDY 2021-01-15 16:28:37 [facility] : 1975 Sex: FExam: CT abdomen [...] liver with significant hepatomegaly again noted measuring 20.4cm craniocaudal at the midclavicular line. The spleen is at upper size limits measuring 12.1 cm in length. The gallbladder has been surgically removed. The pancreas is within normal limits. The adrenalglands are within normal limits. There is a tiny calculus at the midpole right kidney. The kidneys are otherwise within normal limits. The patient is status post hysterectomy. No significant adenopathyis identified. No free fluid or fluid collections are evident. No focal signs of inflammation are noted. The appendix is normal in appearance. There is a 3 mm noncalcified nodule within the right lowerlobe of the lung. This remains stable dating back to at least November 2019 suggesting benign nodule.No acute skeletal or soft tissue abnormalities are identified.IMPRESSION:1. No acute abnormalities.2. There is moderate diffuse fatty infiltration of the liver with significant hepatomegaly again noted.3. The spleen is at upper size limits measuring 12.1 cm in length.4. There is a tiny calculus at themidpole right kidney.*One or more of the following radiation dose reduction techniques was used: automated exposure control, adjustment of mA and/or KV according to patient size, and/or utilization of iterative reconstruction technique.Electronically signed by: Adolfo Frias MD 01/15/2021 4:28 PM [facility] [id number] METABOLIC PANEL *WW*2021-01-15 15:51:00 Test Item Value [...] (test code = 104 See_Comment [Automated GFR) mL/min/1.73m\\S\\2 message] e system which generated this result transmit evin reference range : >=90. The reference range was not used to interpret this result as normal/abnormal . GFR 121 See_Comment [Automated GABONESE (test mL/min/1.73m\\S\\2 message] The code = GFRAA) system which [...] = WAUAM) NO NO CBC (INCLUDES AUTOMATED DIFFERENTIAL)*[id number] 15:42:00 Test Item Value Reference Range Interpretation Comments WBC (test code = WBC) 11.3 10\\S\\3/uL 4.5-11.0 H RBC (test code = RBC) 4.14 10\\S\\6/uL 4.20-5.60 L HGB (test code = HBG) 12.7 g/dL 12.0-15.5 HCT (test code = HCT) 38.1 % 35.0-44.0 MCV (test code = MCV) 92.0 fL 81.0-99.0 MCH (test code = MCH) 30.7 pg 27.0-31.0 MCHC (test code = MCHC) 33.3 g/dL 32.0-36.0 RDW (test code = RDW) 13.2 % 11.5-14.5 PLT (test code = PLT) 325 10\\S\\3/uL 130-400 MPV (test code = MPV) 11.1 fL 9.4-12.4 NEUTROP # (test code = NE#) 5.8 10\\S\\3/uL 1.6-8.0 LYMPH # (test code = LY#) 3.6 10\\S\\3/uL 1.1-3.5 H MONOCYTE # (test code = MO#) 1.4 10\\S\\3/uL 0.0-1.1 H EOSINOPH # (test code = EO#) 0.3 10\\S\\3/uL 0.0-0.7 BASOPHIL # (test code = BA#) 0.1 10\\S\\3/uL 0.0-0.3 IG # (test code = IG#) 0.11 10\\S\\3/uL 0.00-0.06 H NRBC # (test code = NRBC#) 0.00 10\\S\\3/uL 0.00-0.01 NEUTROPH % (test code = NE%) [...] MORPH (test code = NORMAL WRBCMOR) URINE [id number] 23:31:00 Test Item Value Reference Range Interpretation Comments PREG UR (test code = PGU) NEGATIVE NEGATIVE CT ABDOMEN AND PELVIS WITH [id number] 22:35:54 [facility] : 1975 Sex: FCT OF THE ABDOMEN AND PELVIS WITH CONTRASTLocation H 31HISTORY: Abdominal painTECHNIQUE:5 millimeters contrast enhanced axial images of the abdomen and pelvis provided in venous delays. No PO contrast was administered. The images were reviewed in soft tissue, lung and bone windows. Sagittal and coronal images werereformatted. One or more the following dose reduction techniques is utilized: Use of iterative reconstruction, automated exposure control, adjustment of the mAs and Kv for the patient's weight. DLP 898mGy-cm. COMPARISON: CT abdomen pelvis dated 09/29/2020FINDINGS:Lung bases: Clear.Liver: Diffuse low-attenuation throughout liver compatible with steatosis. Liver measures 19.7 cm craniocaudal.Gallbladder : Status post cholecystectomy. No significant abnormality.Pancreas: No significant abnormality.Spleen: No significant abnormality.Kidneys: No significant abnormality.Adrenals: No significant abnormality.Bowel: Colon is diffusely fluid-filled to the rectum. Nondilated overall. No wall thickening or surrounding fat stranding. Small bowel loops are unremarkable.Appendix: Well identified and normal. Peritoneum: No free air or free fluid.Bladder: No significant abnormality.Uterus: Uterus is absent.Adnexal regions: No adnexal fullness.Bone Windows: No significant abnormality.Vascular:No significant abnorm ality.Lymph Nodes:No significant abnormality.IMPRESSION:1. Diffusely fluid- filled colon. Findings suggest a colitis. Correlate for diarrhea. No aggressive features. No free air or free fluid.2. Note ofdiffuse hepatic steatosis with borderline hepatomegaly.3. Status post cholecystectomy.Electronicallysigned by: Valeri Jameson MD 12/28/2020 10:35 PM CAMPUS CO[facility] [id number] 2020-12-28 22:11:00 Test Item Value Reference Range Interpretation [...] is result as normal/abnormal . COMPREHENSIVE METABOLIC [id number] 21:56:00 Test Item Value Reference Range Interpretation [...] (test code = 104 See_Comment [Automated GFR) mL/min/1.73m\\S\\2 message] Th e system which generated this result transmit evin reference range : >=90. The reference range was not used to interpret this result as normal/abnormal . GFR 121 See_Comment [Automated GABONESE (test mL/min/1.73m\\S\\2 message] The code = GFRAA) system which [...] = 81 IU/L 10-49 H 31A) LIPASE [id number] 21:56:00 Test Item Value Reference Range Interpretation Comments LIPASE (test code = 60A) 58 IU/L 12-53 H DRUGS OF [id number] 21:55:00 Test Item Value Reference Range Interpretation Comments DRUG SCRN (test code = URINE DRUG HDOA) SCREEN This is an unconfirmed screening result and should not be used for non-medical purposes CANNABINOD (test code NEGATIVE NEGATIVE = 88C) AMPHETAMINE (test code NEGATIVE NEGATIVE = 84A) BENZODIAZP (test code NEGATIVE NEGATIVE = 86A) BARBITURAT (test code NEGATIVE NEGATIVE = 85A) OPIATES (test code = POSITIVE NEGATIVE A 92B) COCAINE (test code = NEGATIVE NEGATIVE 87A) PHENCYCLID (test code NEGATIVE NEGATIVE = 66A) METHADONE (test code = NEGATIVE NEGATIVE 64A) DOAH (test code = DOAH.) URINE DRUGSCREEN Cut-off values are as follows: Cannabinoids 50 ng/mL Cocaine 300 ng/mL Amphetamines 1000 ng/mL Phencyclidine 25 ng/mL Benzodiazepines 200 ng.mL Methadone 300 ng/mL Barbiturates 200 ng/mL Opiates 300 ng/mL TROPONIN [id number] 21:54:00 Test Item Value Reference Range Interpretation Comments TROPONIN I (test code <2.50 pg/mL 0.00-45.20 = A84) Ref Range Change (test Please note the code = REF RANGE) change in reference range SERUM [id number] 21:48:00 Test Item Value Reference Range Interpretation Comments PREG SRM (test code = PGS) NEGATIVE NEGATIVE [id number] 21:42:00 Test Item Value Reference Range Interpretation [...] Comments WBC (test code = WBC) 13.4 10\\S\\3/uL 4.5-11.0 H RBC (test code = RBC) 4.31 10\\S\\6/uL 4.20-5.60 HGB (test code = HBG) 13.3 g/dL 12.0-15.5 HCT (test code = HCT) 40.0 % 35.0-44.0 MCV (test code = MCV) 92.8 fL 81.0-99.0 MCH (test code = MCH) 30.9 pg 27.0-31.0 MCHC (test code = MCHC) 33.3 g/dL 32.0-36.0 RDW (test code = RDW) 13.5 % 11.5-14.5 PLT (test code = PLT) 277 10\\S\\3/uL 130-400 MPV (test code = MPV) 11.7 fL 9.4-12.4 NEUTROP # (test code = NE#) 7.7 10\\S\\3/uL 1.6-8.0 LYMPH # (test code = LY#) 4.0 10\\S\\3/uL 1.1-3.5 H MONOCYTE # (test code = MO#) 1.2 10\\S\\3/uL 0.0-1.1 H EOSINOPH # (test code = EO#) 0.3 10\\S\\3/uL 0.0-0.7 BASOPHIL # (test code = BA#) 0.1 10\\S\\3/uL 0.0-0.3 IG # (test code = IG#) 0.14 10\\S\\3/uL 0.00-0.06 H NRBC # (test code = NRBC#) 0.00 10\\S\\3/uL 0.00-0.01 NEUTROPH % (test code = NE%) [...] MORPH (test code = RBCMOR) NORMAL OCCULT [id number] 22:22:00 Test Item Value Reference Range Interpretation Comments Direct Exam (test code NEGATIVE FOR OCCULT = DE3) BLOOD CT ABDOMEN AND PELVIS WITH CONTRAST*WW*2020-09-29 21:56:04 [facility] : 1975 Sex: FExam: CT abdomen [...] glands are normal in size and shape.The kidneysare unremarkable. No perinephric fluid collections or hydronephrosis [...] intra-abdominal findings.2. Fatty liver.3. Status post cholecystectomy.4. Statuspost hysterectomy.Electronically signed by: Bhargav Jacques MD 09/29/2020 9:56 PM CDT [id number] METABOLIC LION *WW*2020-09-29 21:13:00 Test Item Value [...] code = 75 See_Comment L [Automated GFR) mL/min/1.73m\\S\\2 message] Th e system which generated this result transmit evin reference range : >=90. The reference range was not used to interpret this result as normal/abnormal . GFR 87 See_Comment L [Automated GABONESE (test mL/min/1.73m\\S\\2 message] The code = GFRAA) system which [...] code = USPERM) /HPF NONE URINE MONOCLONAL *WW*2020-09-29 20:45:00 Test Item Value Reference Range Interpretation Comments PREG UR (test code = PGU) NEGATIVE NEGATIVE CBC (INCLUDES AUTOMATED DIFFERENTIAL)*[id number] 20:42:00 Test Item Value Reference Range Interpretation Comments WBC (test code = WBC) 14.0 10\\S\\3/uL 4.5-11.0 H RBC (test code = RBC) 4.28 10\\S\\6/uL 4.20-5.60 HGB (test code = HBG) 13.2 g/dL 12.0-15.5 HCT (test code = HCT) 39.0 % 35.0-44.0 MCV (test code = MCV) 91.1 fL 81.0-99.0 MCH (test code = MCH) 30.8 pg 27.0-31.0 MCHC (test code = MCHC) 33.8 g/dL 32.0-36.0 RDW (test code = RDW) 12.9 % 11.5-14.5 PLT (test code = PLT) 293 10\\S\\3/uL 130-400 MPV (test code = MPV) 11.5 fL 9.4-12.4 NEUTROP # (test code = NE#) 7.4 10\\S\\3/uL 1.6-8.0 LYMPH # (test code = LY#) 4.8 10\\S\\3/uL 1.1-3.5 H MONOCYTE # (test code = MO#) 1.3 10\\S\\3/uL 0.0-1.1 H EOSINOPH # (test code = EO#) 0.4 10\\S\\3/uL 0.0-0.7 BASOPHIL # (test code = BA#) 0.1 10\\S\\3/uL 0.0-0.3 IG # (test code = IG#) 0.09 10\\S\\3/uL 0.00-0.06 H NRBC # (test code = NRBC#) 0.00 10\\S\\3/uL 0.00-0.01 NEUTROPH % (test code = NE%) [...] [Auto mated message] = BILII) The system [employer] generated this result transmitted ref erence range: [...] See_Comment H [Auto mated message] The system [employer] generated this result transmitted ref erence range: <=42. Th e reference range was not used to interpr et this result as normal/abnormal . ALT (test code = 31A) 66 IU/L See_Comment [Auto mated message] The system [employer] generated this result transmitted ref erence range: [...] code = 82 See_Comment L [Automated GFR) mL/min/1.73m\\S\\2 message] Th e system which generated this result transmit evin reference range : >=90. The reference range was not used to interpret this result as normal/abnormal . GFR 95 See_Comment [Automated GABONESE (test mL/min/1.73m\\S\\2 message] The code = GFRAA) system which [...] mg/dL 8.3-9.5 = 09D) CBC (INCLUDES AUTOMATED DIFFERENTIAL)*[id number] 19:54:00 Test Item Value Reference Range Interpretation Comments WBC (test code = WBC) 14.0 10\\S\\3/uL 4.5-11.0 H RBC (test code = RBC) 4.06 10\\S\\6/uL 4.20-5.60 L HGB (test code = HBG) 12.2 g/dL 12.0-15.5 HCT (test code = HCT) 36.7 % 35.0-44.0 MCV (test code = MCV) 90.4 fL 81.0-99.0 MCH (test code = MCH) 30.0 pg 27.0-31.0 MCHC (test code = MCHC) 33.2 g/dL 32.0-36.0 RDW (test code = RDW) 13.0 % 11.5-14.5 PLT (test code = PLT) 247 10\\S\\3/uL 130-400 MPV (test code = MPV) 11.3 fL 9.4-12.4 NEUTROP # (test code = NE#) 7.3 10\\S\\3/uL 1.6-8.0 LYMPH # (test code = LY#) 5.1 10\\S\\3/uL 1.1-3.5 H MONOCYTE # (test code = MO#) 1.2 10\\S\\3/uL 0.0-1.1 H EOSINOPH # (test code = EO#) 0.3 10\\S\\3/uL 0.0-0.7 BASOPHIL # (test code = BA#) 0.1 10\\S\\3/uL 0.0-0.3 IG # (test code = IG#) 0.07 10\\S\\3/uL 0.00-0.06 H NRBC # (test code = NRBC#) 0.00 10\\S\\3/uL 0.00-0.01 NEUTROPH % (test code = NE%) [...] ABDOMEN AND PELVIS WITHOUT CONTRAST *WW*2020-08-01 19:51:59 [facility] : 1975 Sex: FCT abdomen and pelvis with contrastLocation Code: [id number] HISTORY: Epigastric painCOMPARISON: NoneTechnique: Helical CT of [...] and is normal. There is no free perit judd air or fluid. The abdominal aorta is normal in caliber and contour. There is no retroperitoneal mass or fluid collection. The urinary bladder is collapsed and not well evaluated.. There is no pelvic mass or fluid collection.The bones, skin, and surrounding soft tissues are unremarkable.IMPRESSION: 1. No acute findings.2. Hepatomegaly and hepatic steatosis.Electronically signed by: Ibrahima Kaur MD08/01/2020 7:51 PM CDT [id number] WITH MICRO *WW* 2020-08-01 19:49:00 Test Item Value Reference Range Interpretation [...] UR (test code = USPERM) /HPF NONE DRUG [id number] 00:31:00 Test Item Value Reference Range Interpretation Comments U Amph Scr (test code Negative *NA*(05/16/19 = U Amph Scr) 7:31 PM) [facility] [id number] 00:31:00 Test Item Value Reference Range Interpretation Comments U Jyothi Scr (test code Negative *NA*(05/16/19 = U Jyothi Scr) 7:31 PM) [facility] [id number] 00:31:00 Test Item Value Reference Range Interpretation Comments U Benzodiaz Scr (test Negative *NA*(05/16/19 code = U Benzodiaz Scr) 7:31 PM) [facility] [id number] 00:31:00 Test Item Value Reference Range Interpretation Comments U Cocaine Scr (test Negative *NA*(05/16/19 code = U Cocaine Scr) 7:31 PM) [facility] [id number] 00:31:00 Test Item Value Reference Range Interpretation Comments U Cannab Scr (test Negative *NA*(05/16/19 code = U Cannab Scr) 7:31 PM) [facility] [id number] 00:31:00 Test Item Value Reference Range Interpretation Comments U Opiate Scr (test Positive *ABN*(05/16/19 code = U Opiate Scr) 7:31 PM) [facility] [id number] 00:31:00 Test Item Value Reference Range Interpretation Comments U Phencyclidine Scr (test Negative code = U Phencyclidine *NA*(05/16/19 7:31 Scr) PM) [facility] [id number] 00:31:00 Test Item Value Reference Range Interpretation Comments UDS Note (test code = See Note (05/16/19 7:31 UDS Note) PM) [facility] [id number] 14:32:00 Test Item Value Reference Range Interpretation Comments Glucose Lvl (test code = Glucose Lvl) 90 70-99 [place] [id number] 14:32:00 Test Item Value Reference Range Interpretation Comments BUN (test code = BUN) 6 7-22 [place] 084370-03-29 14:32:00 Test Item Value Reference Range Interpretation Comments Creatinine Lvl (test code = Creatinine 0.50 0.50-1.40 Lvl) [place] 084370-03-29 14:32:00 Test Item Value Reference Range Interpretation Comments Sodium Lvl (test code = Sodium Lvl) 140 135-145 [place] [address]-03-29 14:32:00 Test Item Value Reference Range Interpretation Comments Potassium Lvl (test code = Potassium 3.7 3.5-5.1 Lvl) [place] 084370-03-29 14:32:00 Test Item Value Reference Range Interpretation Comments Chloride Lvl (test code = Chloride Lvl) 106 95-109 [place] 084370-03-29 14:32:00 Test Item Value Reference Range Interpretation Comments CO2 (test code = CO2) 30 24-32 [place] 084370-03-29 14:32:00 Test Item Value Reference Range Interpretation Comments Calcium Lvl (test code = Calcium Lvl) 8.5 8.5-10.5 [place] 084370-03-29 14:32:00 Test Item Value Reference Range Interpretation Comments Total Protein (test code = Total 7.1 6.4-8.4 Protein) [place] 084370-03-29 14:32:00 Test Item Value Reference Range Interpretation Comments Albumin Lvl (test code = Albumin Lvl) 3.1 3.5-5.0 [place] [address]-03-29 14:32:00 Test Item Value Reference Range Interpretation Comments ALT (test code = ALT) 109 See_Comment [Auto mated message] The system which ge nerated this result transmit evin reference range : <=65. The reference range was not used to interpr et this result as kev l/abnormal. [place] 084370-03-29 14:32:00 Test Item Value Reference Range Interpretation Comments AST (test code = AST) 38 See_Comment [Auto mated message] The system which ge nerated this result transmit evin reference range : <=37. The reference range was not used to interpr et this result as kev l/abnormal. [facility] [id number] 14:32:00 Test Item Value Reference Range Interpretation Comments Alk Phos (test code = Alk Phos) 111 39-136 [facility] [id number] 14:32:00 Test Item Value Reference Range Interpretation Comments Bili Total (test code = Bili Total) 0.6 0.2-1.3 [facility] [id number] 14:32:00 Test Item Value Reference Range Interpretation Comments AGAP (test code = AGAP) 7.7 10.0-20.0 [facility] [id number] 14:32:00 Test Item Value Reference Range Interpretation Comments B/C Ratio (test code = B/C Ratio) 12 1 6-25 [facility] [id number] 14:32:00 Test Item Value Reference Range Interpretation Comments Globulin (test code = Globulin) 4.0 2.7-4.2 [facility] [id number] 14:32:00 Test Item Value Reference Range Interpretation Comments A/G Ratio (test code = A/G Ratio) 0.8 1 0.7-1.6 [facility] [id number] 14:32:00 Test Item Value Reference Range Interpretation Comments eGFR (test code = eGFR) 118 [facility] [id number] 14:32:00 Test Item Value Reference Range Interpretation Comments Procalcitonin Lvl (test no gt See_Comment [Au tomated message] code = Procalcitonin Lvl) e system which generated this result transmitted ref erence range: <=0.10. The reference range was not used to interpr et this result as normal/abnormal . [id number] 14:32:00 Test Item Value Reference Range Interpretation Comments WBC (test code = WBC) 9.5 3.7-10.4 [place] 341030-03-29 14:32:00 Test Item Value Reference Range Interpretation Comments RBC (test code = RBC) 3.67 4.20-5.40 [facility] [id number] 14:32:00 Test Item Value Reference Range Interpretation Comments Hgb (test code = Hgb) 11.2 12.0-16.0 [place] 341030-03-29 14:32:00 Test Item Value Reference Range Interpretation Comments Hct (test code = Hct) 33.1 36.0-48.0 [place] 341030-03-29 14:32:00 Test Item Value Reference Range Interpretation Comments MCV (test code = MCV) 90.2 80.0-98.0 [place] 341030-03-29 14:32:00 Test Item Value Reference Range Interpretation Comments MCH (test code = MCH) 30.5 pg 27.0-31.0 [place] 341030-03-29 14:32:00 Test Item Value Reference Range Interpretation Comments MCHC (test code = MCHC) 33.8 32.0-36.0 [facility] [id number] 14:32:00 Test Item Value Reference Range Interpretation Comments RDW (test code = RDW) 13.1 11.5-14.5 [place] 341030-03-29 14:32:00 Test Item Value Reference Range Interpretation Comments Platelet (test code = Platelet) 229 133-450 [facility] [id number] 14:32:00 Test Item Value Reference Range Interpretation Comments MPV (test code = MPV) 9.4 7.4-10.4 [place] 341030-03-29 14:32:00 Test Item Value Reference Range Interpretation Comments Segs (test code = Segs) 66.5 45.0-75.0 [place] 341030-03-29 14:32:00 Test Item Value Reference Range Interpretation Comments Lymphocytes (test code = Lymphocytes) 23.3 20.0-40.0 [place] [address]-03-29 14:32:00 Test Item Value Reference Range Interpretation Comments Monocytes (test code = Monocytes) 7.9 2.0-12.0 [place] [address]-03-29 14:32:00 Test Item Value Reference Range Interpretation Comments Eosinophils (test code = 1.9 See_Comment [A utomated message] The Eosinophils) system which ge nerated this result tra nsmitted reference range : <=4.0. The reference r jailene was not used to int erpret this result as normal/abnormal . [facility] C[id number] 14:32:00 Test Item Value Reference Range Interpretation Comments Basophils (test code = 0.4 See_Comment [Aut omated message] The Basophils) system which ge nerated this result tra nsmitted reference range : <=1.0. The reference r jailene was not used to int erpret this result as normal/abnormal . [facility] [id number] 14:32:00 Test Item Value Reference Range Interpretation Comments Neutrophils # (test code = Neutrophils 6.3 1.5-8.1 #) [facility] CenterWtuaxtdKYECIJVWPE2200-89-00 14:32:00 Test Item Value Reference Range Interpretation Comments Lymphocytes # (test code = Lymphocytes 2.2 1.0-5.5 #) [facility] CenterJyxqmpyFXSYYPHKVL9794-20-23 14:32:00 Test Item Value Reference Range Interpretation Comments Monocytes # (test code 0.8 See_Comment [Aut omated message] The = Monocytes #) system which generated this result tra nsmitted reference range : <=0.8. The reference r jailene was not used to int erpret this result as normal/abnormal . [facility] C[id number] 14:32:00 Test Item Value Reference Range Interpretation Comments Eosinophils # (test code 0.2 See_Comment [A utomated message] The = Eosinophils #) system whic h generated this result tra nsmitted reference range : <=0.5. The reference r jailene was not used to int erpret this result as normal/abnormal . [facility] SouthlakeVhfvwnoRPHUDXZYYB4498-72-17 03:50:00 Test Item Value Reference Range Interpretation Comments Hep Bs Ag (test code Negative *NA*(05/14/19 = Hep Bs Ag) 10:50 PM) [facility]lakeHehdlrfKDINXYYZBF3835-97-66 03:50:00 Test Item Value Reference Range Interpretation Comments Hep C Ab (test code = Negative *NA*(05/14/19 Hep C Ab) 10:50 PM) [id number] 03:50:00 Test Item Value Reference Range Interpretation Comments AMA Ab Scr (test code Negative (05/14/19 10:50 = AMA Ab Scr) PM) [facility] HospitalDwxysjoXQQAHXDMYA0976-02-83 03:50:00 Test Item Value Reference Range Interpretation Comments CHANTEL (test code = CHANTEL) Negative (05/14/19 10:50 PM) [facility]oUpxbxlmLYPUCRZICW4397-19-39 03:50:00 Test Item Value Reference Range Interpretation Comments A-1-AT (test code = A-1-AT) 102 83-199 [facility]oTpnbvoxEYKFDMPYKM0987-72-01 03:50:00 Test Item Value Reference Range Interpretation Comments CERULOPLASMIN (test code = 30 20-60 CERULOPLASMIN) [facility]oXiquygeXYSFJVXALW0529-00-46 03:50:00 Test Item Value Reference Range Interpretation Comments SMA Screen (test code Negative (05/14/19 10:50 = SMA Screen) PM) [facility]ann[facility] [id number] 17:34:00 Test Item Value Reference Range Interpretation Comments UA Color (test code = Yellow *NA*(05/14/19 UA Color) 12:34 PM) [facility] [id number] 17:34:00 Test Item Value Reference Range Interpretation Comments UA Turbidity (test code = Clear (05/14/19 12:34 UA Turbidity) PM) [facility] [id number] 17:34:00 Test Item Value Reference Range Interpretation Comments UA Spec Grav (test code = UA Spec 1.014 1 Grav) [facility] [id number] 17:34:00 Test Item Value Reference Range Interpretation Comments UA pH (test code = UA pH) 8.0 1 5.0-8.0 [facility] [id number] 17:34:00 Test Item Value Reference Range Interpretation Comments UA Protein (test code = UA Negative mg/dL Protein) [facility] [id number] 17:34:00 Test Item Value Reference Range Interpretation Comments UA Glucose (test code = UA Negative mg/dL Glucose) [facility] [id number] 17:34:00 Test Item Value Reference Range Interpretation Comments UA Ketones (test code = UA Ketones) 20 mg/dL [facility] [id number] 17:34:00 Test Item Value Reference Range Interpretation Comments UA Bili (test code = Negative *NA*(05/14/19 UA Bili) 12:34 PM) [facility] [id number] 17:34:00 Test Item Value Reference Range Interpretation Comments UA Blood (test code = Negative (05/14/19 12:34 UA Blood) PM) [facility] AND [id number] 17:34:00 Test Item Value Reference Range Interpretation Comments UA Urobilinogen (test code = UA 4.0 0.1-1.0 Urobilinogen) [facility] AND [id number] 17:34:00 Test Item Value Reference Range Interpretation Comments UA Nitrite (test code Negative (05/14/19 12:34 = UA Nitrite) PM) [facility] AND [id number] 17:34:00 Test Item Value Reference Range Interpretation Comments UA Leuk Est (test Negative (05/14/19 12:34 code = UA Leuk Est) PM) [facility] AND [id number] 17:34:00 Test Item Value Reference Range Interpretation Comments UA Sq Epi (test code = UA Sq Occasional /LPF Epi) [facility] AND [id number] 17:34:00 Test Item Value Reference Range Interpretation Comments UA WBC (test code = no gt See_Comment [Automa evin message] The UA WBC) system which ge nerated this result transmit evin reference range : <=5. The reference range was not used to interpr et this result as kev l/abnormal. [facility] AND [id number] 17:34:00 Test Item Value Reference Range Interpretation Comments UA RBC (test code = 2 See_Comment [Automa evin message] The UA RBC) system which ge nerated this result transmit evin reference range : <=2. The reference range was not used to interpr et this result as kev l/abnormal. [facility] [id number] 08:08:00 Test Item Value Reference Range Interpretation Comments Glucose Lvl (test code = Glucose Lvl) 95 70-99 [facility] [id number] 08:08:00 Test Item Value Reference Range Interpretation Comments BUN (test code = BUN) 5 7-22 [facility] [id number] 08:08:00 Test Item Value Reference Range Interpretation Comments Creatinine Lvl (test code = Creatinine 0.57 0.50-1.40 Lvl) [facility] [id number] 08:08:00 Test Item Value Reference Range Interpretation Comments Sodium Lvl (test code = Sodium Lvl) 141 135-145 [place] 084370-03-28 08:08:00 Test Item Value Reference Range Interpretation Comments Potassium Lvl (test code = Potassium 3.7 3.5-5.1 Lvl) [place] 084370-03-28 08:08:00 Test Item Value Reference Range Interpretation Comments Chloride Lvl (test code = Chloride Lvl) 107 95-109 [facility] [id number] 08:08:00 Test Item Value Reference Range Interpretation Comments CO2 (test code = CO2) 33 24-32 [facility]oKiiVANESSA [place] [id number] 08:08:00 Test Item Value Reference Range Interpretation Comments Calcium Lvl (test code = Calcium Lvl) 8.7 8.5-10.5 [facility] [id number] 08:08:00 Test Item Value Reference Range Interpretation Comments AGAP (test code = AGAP) 4.7 10.0-20.0 [facility] [id number] 08:08:00 Test Item Value Reference Range Interpretation Comments eGFR (test code = eGFR) 113 [place] 084370-03-28 08:08:00 Test Item Value Reference Range Interpretation Comments Magnesium Lvl (test code = Magnesium 2.2 1.8-2.4 Lvl) [place] 084370-03-28 08:08:00 Test Item Value Reference Range Interpretation Comments Phosphorus (test code = Phosphorus) 2.5 2.5-4.5 [facility] [id number] 08:08:00 Test Item Value Reference Range Interpretation Comments Total Protein (test code = Total 7.1 6.4-8.4 Protein) [facility] [id number] 08:08:00 Test Item Value Reference Range Interpretation Comments Albumin Lvl (test code = Albumin Lvl) 3.1 3.5-5.0 [facility] [id number] 08:08:00 Test Item Value Reference Range Interpretation Comments ALT (test code = ALT) 153 See_Comment [Auto mated message] The system which ge nerated this result transmit evin reference range : <=65. The reference range was not used to interpr et this result as kev l/abnormal. [facility] [id number] 08:08:00 Test Item Value Reference Range Interpretation Comments AST (test code = AST) 78 See_Comment [Auto mated message] The system which ge nerated this result transmit evin reference range : <=37. The reference range was not used to interpr et this result as kev l/abnormal. [facility] [employer] [id number] 08:08:00 Test Item Value Reference Range Interpretation Comments Alk Phos (test code = Alk Phos) 120 39-136 [facility] [id number] 08:08:00 Test Item Value Reference Range Interpretation Comments Bili Total (test code = Bili Total) 0.8 0.2-1.3 [facility] [id number] 08:08:00 Test Item Value Reference Range Interpretation Comments Bili Direct (test code 0.2 See_Comment [Aut omated message] The = Bili Direct) system which generated this result tra nsmitted reference range : <=0.3. The reference r jailene was not used to int erpret this result as kev l/abnormal. [facility] [employer] [id number] 08:08:00 Test Item Value Reference Range Interpretation Comments Globulin (test code = Globulin) 4.0 2.7-4.2 [facility] [employer] [id number] 08:08:00 Test Item Value Reference Range Interpretation Comments A/G Ratio (test code = A/G Ratio) 0.8 1 0.7-1.6 [facility] [employer] [id number] 08:08:00 Test Item Value Reference Range Interpretation Comments Bili Indirect (test 0.6 See_Comment [Automa evin message] The code = Bili Indirect) system which generated this result tra nsmitted reference range : <=1.0. The reference r jailene was not used to int erpret this result as normal/abnormal . [facility] LsrxxhzDMGLJZYFBE6242-31-08 08:08:00 Test Item Value Reference Range Interpretation Comments Segs (test code = Segs) 60.4 45.0-75.0 [facility] [id number] 08:08:00 Test Item Value Reference Range Interpretation Comments Lymphocytes (test code = Lymphocytes) 29.7 20.0-40.0 [place] 341030-03-28 08:08:00 Test Item Value Reference Range Interpretation Comments Monocytes (test code = Monocytes) 7.1 2.0-12.0 [place] 341030-03-28 08:08:00 Test Item Value Reference Range Interpretation Comments Eosinophils (test code = 2.4 See_Comment [A utomated message] The Eosinophils) system which ge nerated this result tra nsmitted reference range : <=4.0. The reference r jailene was not used to int erpret this result as normal/abnormal . [place] [address]-03-28 08:08:00 Test Item Value Reference Range Interpretation Comments Basophils (test code = 0.4 See_Comment [Aut omated message] The Basophils) system which ge nerated this result tra nsmitted reference range : <=1.0. The reference r jailene was not used to int erpret this result as normal/abnormal . [place] 341030-03-28 08:08:00 Test Item Value Reference Range Interpretation Comments Neutrophils # (test code = Neutrophils 5.8 1.5-8.1 #) [place] 341030-03-28 08:08:00 Test Item Value Reference Range Interpretation Comments Lymphocytes # (test code = Lymphocytes 2.8 1.0-5.5 #) [place] 341030-03-28 08:08:00 Test Item Value Reference Range Interpretation Comments Monocytes # (test code 0.7 See_Comment [Aut omated message] The = Monocytes #) system which generated this result tra nsmitted reference range : <=0.8. The reference r jailene was not used to int erpret this result as normal/abnormal . [place] [address]-03-28 08:08:00 Test Item Value Reference Range Interpretation Comments Eosinophils # (test code 0.2 See_Comment [A utomated message] The = Eosinophils #) system whic h generated this result tra nsmitted reference range : <=0.5. The reference r jailene was not used to int erpret this result as normal/abnormal . [place] 341030-03-28 08:08:00 Test Item Value Reference Range Interpretation Comments WBC (test code = WBC) 9.6 3.7-10.4 [place] 341030-03-28 08:08:00 Test Item Value Reference Range Interpretation Comments RBC (test code = RBC) 3.85 4.20-5.40 [facility] CenterKypkeywTZLBVLKFOV2493-07-35 08:08:00 Test Item Value Reference Range Interpretation Comments Hgb (test code = Hgb) 11.7 12.0-16.0 [facility] [id number] 08:08:00 Test Item Value Reference Range Interpretation Comments Hct (test code = Hct) 34.7 36.0-48.0 [facility] [id number] 08:08:00 Test Item Value Reference Range Interpretation Comments MCV (test code = MCV) 90.2 80.0-98.0 [facility] CenterWfbazkcACFMCDBFHQ2104-82-91 08:08:00 Test Item Value Reference Range Interpretation Comments MCH (test code = MCH) 30.5 pg 27.0-31.0 [facility] [id number] 08:08:00 Test Item Value Reference Range Interpretation Comments MCHC (test code = MCHC) 33.8 32.0-36.0 [facility] CenterJgcbfemILDCCSCBEE9720-68-93 08:08:00 Test Item Value Reference Range Interpretation Comments RDW (test code = RDW) 12.9 11.5-14.5 [facility] C[id number] 08:08:00 Test Item Value Reference Range Interpretation Comments Platelet (test code = Platelet) 237 133-450 [facility] CenterJymomaiPFUFJROFLJ9297-13-29 08:08:00 Test Item Value Reference Range Interpretation Comments MPV (test code = MPV) 9.2 7.4-10.4 [facility] AND [id number] 19:45:00 Test Item Value Reference Range Interpretation Comments UA Urobilinogen (test code = UA <=1.0 mg/dL 0.1-1.0 Urobilinogen) [facility] AND [id number] 19:45:00 Test Item Value Reference Range Interpretation Comments UA Bacteria (test code = UA Occasional /HPF Bacteria) [facility] AND [id number] 19:45:00 Test Item Value Reference Range Interpretation Comments UA Mucus (test code = UA Mucus) Few /LPF [facility] AND [id number] 19:45:00 Test Item Value Reference Range Interpretation Comments UA RBC (test code = 2 See_Comment [Automa evin message] The UA RBC) system which ge nerated this result transmit evin reference range : <=2. The reference range was not used to interpr et this result as kev l/abnormal. [facility] AND [id number] 19:45:00 Test Item Value Reference Range Interpretation Comments UA Sq Epi (test code = UA Sq Epi) Few /LPF [facility] AND [id number] 19:45:00 Test Item Value Reference Range Interpretation Comments UA WBC (test code = 1 See_Comment [Automa evin message] The UA WBC) system which ge nerated this result transmit evin reference range : <=5. The reference range was not used to interpr et this result as kev l/abnormal. [facility] AND [id number] 19:45:00 Test Item Value Reference Range Interpretation Comments UA Nitrite (test code Negative (07/21/18 2:45 = UA Nitrite) PM) [facility] AND [id number] 19:45:00 Test Item Value Reference Range Interpretation Comments UA Leuk Est (test Negative (07/21/18 2:45 code = UA Leuk Est) PM) [facility] AND [id number] 19:45:00 Test Item Value Reference Range Interpretation Comments UA Blood (test code = Negative (07/21/18 2:45 UA Blood) PM) [facility] AND [id number] 19:45:00 Test Item Value Reference Range Interpretation Comments UA Ketones (test code = UA Negative mg/dL Ketones) [facility] AND [id number] 19:45:00 Test Item Value Reference Range Interpretation Comments UA Bili (test code = Negative *NA*(07/21/18 UA Bili) 2:45 PM) [facility] AND [id number] 19:45:00 Test Item Value Reference Range Interpretation Comments UA Glucose (test code = UA Negative mg/dL Glucose) [facility] AND [id number] 19:45:00 Test Item Value Reference Range Interpretation Comments UA pH (test code = UA pH) 6.0 1 5.0-8.0 [facility] AND [id number] 19:45:00 Test Item Value Reference Range Interpretation Comments UA Protein (test code = UA Negative mg/dL Protein) [facility] AND [id number] 19:45:00 Test Item Value Reference Range Interpretation Comments UA Turbidity (test code Slight *ABN*(07/21/18 = UA Turbidity) 2:45 PM) [facility] AND [id number] 19:45:00 Test Item Value Reference Range Interpretation Comments UA Spec Grav (test code = UA Spec 1.010 1 Grav) [facility] AND [id number] 19:45:00 Test Item Value Reference Range Interpretation Comments UA Color (test code = Yellow *NA*(07/21/18 2:45 UA Color) PM) [facility]2019-06-05 16:03:00 Test Item Value Reference Range Interpretation Comments Calcium Lvl (test code = Calcium Lvl) 9.5 8.5-10.5 [facility]2019-06-05 16:03:00 Test Item Value Reference Range Interpretation Comments Total Protein (test code = Total 8.5 6.4-8.4 Protein) [facility]2019-06-05 16:03:00 Test Item Value Reference Range Interpretation Comments CO2 (test code = CO2) 31 24-32 [facility]2019-06-05 16:03:00 Test Item Value Reference Range Interpretation Comments Chloride Lvl (test code = Chloride Lvl) 105 95-109 [facility]2019-06-05 16:03:00 Test Item Value Reference Range Interpretation Comments Potassium Lvl (test code = Potassium 3.7 3.5-5.1 Lvl) [facility]2019-06-05 16:03:00 Test Item Value Reference Range Interpretation Comments Sodium Lvl (test code = Sodium Lvl) 141 135-145 [facility]2019-06-05 16:03:00 Test Item Value Reference Range Interpretation Comments Creatinine Lvl (test code = Creatinine 0.72 0.50-1.40 Lvl) [facility]2019-06-05 16:03:00 Test Item Value Reference Range Interpretation Comments BUN (test code = BUN) 5 7-22 [facility]2019-06-05 16:03:00 Test Item Value Reference Range Interpretation Comments Glucose Lvl (test code = Glucose Lvl) 100 70-99 [facility]2019-06-05 16:03:00 Test Item Value Reference Range Interpretation Comments AGAP (test code = AGAP) 8.7 10.0-20.0 [facility]2019-06-05 16:03:00 Test Item Value Reference Range Interpretation Comments B/C Ratio (test code = B/C Ratio) 7 1 6-25 [facility]2019-06-05 16:03:00 Test Item Value Reference Range Interpretation Comments Globulin (test code = Globulin) 4.7 2.7-4.2 [facility]2019-06-05 16:03:00 Test Item Value Reference Range Interpretation Comments A/G Ratio (test code = A/G Ratio) 0.8 1 0.7-1.6 [facility] [id number] 16:03:00 Test Item Value Reference Range Interpretation Comments Hct (test code = Hct) 39.7 36.0-48.0 [facility] CenterQwxbaadDZMCNRYBTB8348-76-98 16:03:00 Test Item Value Reference Range Interpretation Comments MCH (test code = MCH) 30.6 pg 27.0-31.0 [facility] [id number] 16:03:00 Test Item Value Reference Range Interpretation Comments MCV (test code = MCV) 89.1 80.0-98.0 [facility] [id number] 16:03:00 Test Item Value Reference Range Interpretation Comments Platelet (test code = Platelet) 318 133-450 [facility] [id number] 16:03:00 Test Item Value Reference Range Interpretation Comments RDW (test code = RDW) 12.8 11.5-14.5 [facility] CenterCigieqgLQNKFDKMFJ2577-16-35 16:03:00 Test Item Value Reference Range Interpretation Comments MPV (test code = MPV) 9.2 7.4-10.4 [facility] C[id number] 16:03:00 Test Item Value Reference Range Interpretation Comments MCHC (test code = MCHC) 34.4 32.0-36.0 [facility] CenterIxnndbnJGJVSKPIZY6625-10-38 16:03:00 Test Item Value Reference Range Interpretation Comments RBC (test code = RBC) 4.46 4.20-5.40 [facility] CenterDvvtednZVBAGNDUQA2510-17-18 16:03:00 Test Item Value Reference Range Interpretation Comments Hgb (test code = Hgb) 13.7 12.0-16.0 [facility] CenterVravebxDCKTTSLOQS6676-93-06 16:03:00 Test Item Value Reference Range Interpretation Comments WBC (test code = WBC) 8.6 3.7-10.4 [facility] CenterVurmtqjXBFOKUYCQH3540-16-11 16:03:00 Test Item Value Reference Range Interpretation Comments Monocytes # (test code 0.8 See_Comment [Aut omated message] The = Monocytes #) system which generated this result tra nsmitted reference range : <=0.8. The reference r jailene was not used to int erpret this result as normal/abnormal . [facility] CenterCeuutzfRJWYXQNHEQ2822-57-29 16:03:00 Test Item Value Reference Range Interpretation Comments Eosinophils # (test code 0.3 See_Comment [A utomated message] The = Eosinophils #) system whic h generated this result tra nsmitted reference range : <=0.5. The reference r jailene was not used to int erpret this result as normal/abnormal . [facility] CenterDagqtrbKOYNOMGUHI9307-02-49 16:03:00 Test Item Value Reference Range Interpretation Comments Basophils (test code = 0.4 See_Comment [Aut omated message] The Basophils) system which ge nerated this result tra nsmitted reference range : <=1.0. The reference r jailene was not used to int erpret this result as normal/abnormal . [facility] [id number] 16:03:00 Test Item Value Reference Range Interpretation Comments Segs (test code = Segs) 49.4 45.0-75.0 [facility] Cent[id number] 16:03:00 Test Item Value Reference Range Interpretation Comments Neutrophils # (test code = Neutrophils 4.2 1.5-8.1 #) [facility] Cent[id number] 16:03:00 Test Item Value Reference Range Interpretation Comments Lymphocytes # (test code = Lymphocytes 3.3 1.0-5.5 #) [facility] [id number] 16:03:00 Test Item Value Reference Range Interpretation Comments Lymphocytes (test code = Lymphocytes) 38.0 20.0-40.0 [facility] CenterPjxkeumDRMVBAXGUV7423-68-05 16:03:00 Test Item Value Reference Range Interpretation Comments Monocytes (test code = Monocytes) 9.2 2.0-12.0 [facility] CenterWgkzalmKJNYFXDMVO1412-15-39 16:03:00 Test Item Value Reference Range Interpretation Comments Eosinophils (test code = 3.0 See_Comment [A utomated message] The Eosinophils) system which ge nerated this result tra nsmitted reference range : <=4.0. The reference r jailene was not used to int erpret this result as normal/abnormal . [facility] [employer] [id number] 16:03:00 Test Item Value Reference Range Interpretation Comments Lipase Lvl (test code = Lipase Lvl) 118 73-393 [facility]KiiATRI[facility]LEVELANDHVBKM0090-31-72 16:03:00 Test Item Value Reference Range Interpretation Comments eGFR (test code = eGFR) 103 [facility]2019-06-05 16:03:00 Test Item Value Reference Range Interpretation Comments Bili Total (test code = Bili Total) 0.4 0.2-1.3 [facility]2019-06-05 16:03:00 Test Item Value Reference Range Interpretation Comments Alk Phos (test code = Alk Phos) 105 39-136 [facility]oKiiATRIUM HEALTH [id number] 16:03:00 Test Item Value Reference Range Interpretation Comments Albumin Lvl (test code = Albumin Lvl) 3.8 3.5-5.0 [facility]2019-06-05 16:03:00 Test Item Value Reference Range Interpretation Comments AST (test code = AST) 35 See_Comment [Auto mated message] The system which ge nerated this result transmit evin reference range : <=37. The reference range was not used to interpr et this result as kev l/abnormal. [facility] [employer] [id number] 16:03:00 Test Item Value Reference Range Interpretation Comments ALT (test code = ALT) 58 See_Comment [Auto mated message] The system which ge nerated this result transmit evin reference range : <=65. The reference range was not used to interpr et this result as kev l/abnormal. [facility] AND [id number] 20:30:00 Test Item Value Reference Range Interpretation Comments UA Bacteria (test code = UA Occasional /HPF Bacteria) [facility] [id number] 20:30:00 Test Item Value Reference Range Interpretation Comments UA Mucus (test code = UA Mucus) Few /LPF [facility] [id number] 20:30:00 Test Item Value Reference Range Interpretation Comments UA Sq Epi (test code = UA Sq Epi) Few /LPF [facility] [id number] 20:30:00 Test Item Value Reference Range Interpretation Comments UA WBC (test code = 2 See_Comment [Automa evin message] The UA WBC) system which ge nerated this result transmit evin reference range : <=5. The reference range was not used to interpr et this result as kev l/abnormal. [facility] AND [id number] 20:30:00 Test Item Value Reference Range Interpretation Comments UA RBC (test code = 3 See_Comment [Automa evin message] The UA RBC) system which ge nerated this result transmit evin reference range : <=2. The reference range was not used to interpr et this result as kev l/abnormal. [facility] [id number] 20:30:00 Test Item Value Reference Range Interpretation Comments UA Nitrite (test code Negative (06/08/18 3:30 = UA Nitrite) PM) [facility] AND [id number] 20:30:00 Test Item Value Reference Range Interpretation Comments UA Leuk Est (test code Trace *ABN*(06/08/18 = UA Leuk Est) 3:30 PM) [facility] AND [id number] 20:30:00 Test Item Value Reference Range Interpretation Comments UA Bili (test code = Negative *NA*(06/08/18 UA Bili) 3:30 PM) [facility] AND [id number] 20:30:00 Test Item Value Reference Range Interpretation Comments UA Blood (test code = Small *ABN*(06/08/18 UA Blood) 3:30 PM) [facility] [id number] 20:30:00 Test Item Value Reference Range Interpretation Comments UA Urobilinogen (test code = UA 2.0 0.1-1.0 Urobilinogen) [facility] AND [id number] 20:30:00 Test Item Value Reference Range Interpretation Comments UA Glucose (test code Negative *NA*(06/08/18 = UA Glucose) 3:30 PM) [facility] AND [id number] 20:30:00 Test Item Value Reference Range Interpretation Comments UA Ketones (test code Negative *NA*(06/08/18 = UA Ketones) 3:30 PM) [facility] AND [id number] 20:30:00 Test Item Value Reference Range Interpretation Comments UA pH (test code = UA pH) 5.0 1 5.0-8.0 [facility] AND [id number] 20:30:00 Test Item Value Reference Range Interpretation Comments UA Spec Grav (test code = UA Spec 1.014 1 Grav) [facility] AND [id number] 20:30:00 Test Item Value Reference Range Interpretation Comments UA Color (test code = Yellow *NA*(06/08/18 UA Color) 3:30 PM) [facility] AND [id number] 20:30:00 Test Item Value Reference Range Interpretation Comments UA Protein (test code Negative (06/08/18 3:30 = UA Protein) PM) [facility] AND [id number] 20:30:00 Test Item Value Reference Range Interpretation Comments UA Turbidity (test code Slight *ABN*(06/08/18 = UA Turbidity) 3:30 PM) [facility]2019-04-23 18:41:00 Test Item Value Reference Range Interpretation Comments Lipase Lvl (test code = Lipase Lvl) 68 73-393 [facility]2019-04-23 18:41:00 Test Item Value Reference Range Interpretation Comments A/G Ratio (test code = A/G Ratio) 0.9 1 0.7-1.6 [facility]2019-04-23 18:41:00 Test Item Value Reference Range Interpretation Comments Globulin (test code = Globulin) 4.1 2.7-4.2 [facility]2019-04-23 18:41:00 Test Item Value Reference Range Interpretation Comments B/C Ratio (test code = B/C Ratio) 12 1 6-25 [facility]2019-04-23 18:41:00 Test Item Value Reference Range Interpretation Comments AGAP (test code = AGAP) 10.0 10.0-20.0 [facility]2019-04-23 18:41:00 Test Item Value Reference Range Interpretation Comments eGFR (test code = eGFR) 108 [facility]2019-04-23 18:41:00 Test Item Value Reference Range Interpretation Comments AST (test code = AST) 80 See_Comment [Auto mated message] The system which ge nerated this result transmit evin reference range : <=37. The reference range was not used to interpr et this result as kev l/abnormal. [facility]2019-04-23 18:41:00 Test Item Value Reference Range Interpretation Comments Calcium Lvl (test code = Calcium Lvl) 9.0 8.5-10.5 [facility]2019-04-23 18:41:00 Test Item Value Reference Range Interpretation Comments CO2 (test code = CO2) 31 24-32 [facility]2019-04-23 18:41:00 Test Item Value Reference Range Interpretation Comments Bili Total (test code = Bili Total) 0.5 0.2-1.3 [facility]2019-04-23 18:41:00 Test Item Value Reference Range Interpretation Comments Alk Phos (test code = Alk Phos) 96 39-136 [facility]2019-04-23 18:41:00 Test Item Value Reference Range Interpretation Comments Chloride Lvl (test code = Chloride Lvl) 102 95-109 [facility]2019-04-23 18:41:00 Test Item Value Reference Range Interpretation Comments ALT (test code = ALT) 88 See_Comment [Auto mated message] The system which ge nerated this result transmit evin reference range : <=65. The reference range was not used to interpr et this result as kev l/abnormal. [facility]2019-04-23 18:41:00 Test Item Value Reference Range Interpretation Comments Albumin Lvl (test code = Albumin Lvl) 3.6 3.5-5.0 [facility]2019-04-23 18:41:00 Test Item Value Reference Range Interpretation Comments Total Protein (test code = Total 7.7 6.4-8.4 Protein) [facility]2019-04-23 18:41:00 Test Item Value Reference Range Interpretation Comments Creatinine Lvl (test code = Creatinine 0.67 0.50-1.40 Lvl) [facility]2019-04-23 18:41:00 Test Item Value Reference Range Interpretation Comments Sodium Lvl (test code = Sodium Lvl) 139 135-145 [facility]2019-04-23 18:41:00 Test Item Value Reference Range Interpretation Comments Glucose Lvl (test code = Glucose Lvl) 94 70-99 [facility]2019-04-23 18:41:00 Test Item Value Reference Range Interpretation Comments BUN (test code = BUN) 8 7-22 [facility]2019-04-23 18:41:00 Test Item Value Reference Range Interpretation Comments Potassium Lvl (test code = Potassium 4.0 3.5-5.1 Lvl) [facility] Cent[id number] 18:41:00 Test Item Value Reference Range Interpretation Comments RBC (test code = RBC) 4.24 4.20-5.40 [facility] CenterGrimrwmIAPBIUFIWY2339-89-66 18:41:00 Test Item Value Reference Range Interpretation Comments WBC (test code = WBC) 9.3 3.7-10.4 [facility] CenterAzocxsqQYOYCLQIOM7788-82-85 18:41:00 Test Item Value Reference Range Interpretation Comments Platelet (test code = Platelet) 253 133-450 [facility] CenterCssonveLCDOIALRLZ6575-40-69 18:41:00 Test Item Value Reference Range Interpretation Comments MCHC (test code = MCHC) 34.6 32.0-36.0 [facility] CenterBggqjrrFRWILREQFG1073-23-67 18:41:00 Test Item Value Reference Range Interpretation Comments MCH (test code = MCH) 30.4 pg 27.0-31.0 [facility] [id number] 18:41:00 Test Item Value Reference Range Interpretation Comments RDW (test code = RDW) 13.0 11.5-14.5 [facility] CenterUzeujyhPJVGAXRKVJ7626-18-34 18:41:00 Test Item Value Reference Range Interpretation Comments MCV (test code = MCV) 87.9 80.0-98.0 [facility] CenterXriwzxfBTNMYNEPZO2265-57-90 18:41:00 Test Item Value Reference Range Interpretation Comments MPV (test code = MPV) 9.4 7.4-10.4 [facility] CenterPrcrdwqPTGPPSUDPW4767-52-32 18:41:00 Test Item Value Reference Range Interpretation Comments Hgb (test code = Hgb) 12.9 12.0-16.0 [facility] CenterPzmdztuFZRRITOJPK7025-54-76 18:41:00 Test Item Value Reference Range Interpretation Comments Hct (test code = Hct) 37.2 36.0-48.0 [facility] CenterDznqiqlWGHJAQMXMJ1117-54-12 18:41:00 Test Item Value Reference Range Interpretation Comments Monocytes # (test code 0.9 See_Comment [Aut omated message] The = Monocytes #) system which generated this result tra nsmitted reference range : <=0.8. The reference r jailene was not used to int erpret this result as normal/abnormal . [facility] CenterPuifsmpYXBHBEHBAF5548-64-24 18:41:00 Test Item Value Reference Range Interpretation Comments Eosinophils # (test code 0.2 See_Comment [A utomated message] The = Eosinophils #) system whic h generated this result tra nsmitted reference range : <=0.5. The reference r jailene was not used to int erpret this result as normal/abnormal . [facility] CenterDydmlnqLPAAYXTEQA0709-04-15 18:41:00 Test Item Value Reference Range Interpretation Comments Basophils (test code = 0.5 See_Comment [Aut omated message] The Basophils) system which ge nerated this result tra nsmitted reference range : <=1.0. The reference r jailene was not used to int erpret this result as normal/abnormal . [facility] CenterHdafoavSSVURMRNFO7952-79-83 18:41:00 Test Item Value Reference Range Interpretation Comments Lymphocytes # (test code = Lymphocytes 2.8 1.0-5.5 #) [facility] CenterUoypvxyFGMDFKXYUQ6390-78-07 18:41:00 Test Item Value Reference Range Interpretation Comments Neutrophils # (test code = Neutrophils 5.4 1.5-8.1 #) [facility] CenterMfsztsoNFMVDCDVOI8184-20-94 18:41:00 Test Item Value Reference Range Interpretation Comments Segs (test code = Segs) 57.4 45.0-75.0 [facility] CenterHyfguqoWMZHWJHYAV1642-25-71 18:41:00 Test Item Value Reference Range Interpretation Comments Eosinophils (test code = 2.7 See_Comment [A utomated message] The Eosinophils) system which ge nerated this result tra nsmitted reference range : <=4.0. The reference r jailene was not used to int erpret this result as normal/abnormal . [facility]lakeOqnezuiKLRRCXPHST5213-75-44 18:41:00 Test Item Value Reference Range Interpretation Comments Monocytes (test code = Monocytes) 9.3 2.0-12.0 [facility]RzvywypWZDRYODCDZ6418-25-33 18:41:00 Test Item Value Reference Range Interpretation Comments Lymphocytes (test code = Lymphocytes) 30.1 20.0-40.0 [facility]lakeCARDIAC JXCKSBK1022-08-55 00:31:00 Test Item Value Reference Range Interpretation Comments Troponin-I (test code no gt See_Comment [Auto mated message] The = Troponin-I) system which g enerated this result transmit evin reference range : <=0.40. The reference r jailene was not used to interpr et this result as kev l/abnormal. [facility]OerrsfzQUKCEMTFSKJG0281-70-05 22:27:00 Test Item Value Reference Range Interpretation Comments AGAP (test code = AGAP) 12.0 10.0-20.0 [facility] HospitalUitbxyeFSSWCHEMWCIL3934-39-37 22:27:00 Test Item Value Reference Range Interpretation Comments Globulin (test code = Globulin) 4.6 2.7-4.2 [facility] CenterAyuioqbLFUFKXFFGVWP3126-56-31 22:27:00 Test Item Value Reference Range Interpretation Comments B/C Ratio (test code = B/C Ratio) 13 6-25 [facility] CenterHwcjsqrECUHIJRAAEEK1711-06-93 22:27:00 Test Item Value Reference Range Interpretation Comments A/G Ratio (test code = A/G Ratio) 0.8 0.7-1.6 [facility] CenterWnymcjzQVEFVGALBBJA1515-41-37 22:27:00 Test Item Value Reference Range Interpretation Comments eGFR (test code = eGFR) 98 [facility]MumaulrZWCTXFZSWVKU5443-71-31 22:27:00 Test Item Value Reference Range Interpretation Comments CO2 (test code = CO2) 28 24-32 [facility] CenterEuiraerKJHOSHLCYTRJ5301-81-29 22:27:00 Test Item Value Reference Range Interpretation Comments Calcium Lvl (test code = Calcium Lvl) 9.0 8.5-10.5 [facility] HospitalLgzjqguTPDAUZZHKZAH5055-17-29 22:27:00 Test Item Value Reference Range Interpretation Comments Bili Total (test code = Bili Total) 0.2 0.2-1.3 [facility] HospitalGrbzpbrLJTHTOFWXPAF2269-73-71 22:27:00 Test Item Value Reference Range Interpretation Comments Total Protein (test code = Total 8.3 6.4-8.4 Protein) [facility] HospitalYaxwwryKMMYUSNCKKZE2931-65-62 22:27:00 Test Item Value Reference Range Interpretation Comments ASPARTATE TRANSAMINASE 12 See_Comment [Aut omated message] (test code = ASPARTATE The s ystem which TRANSAMINASE) generated this result transmitted ref erence range: <=37. Th e reference range was not used to interpr et this result as normal/abnormal . [facility] HospitalHjokuiqMCPWJCTWVXDH8115-98-15 22:27:00 Test Item Value Reference Range Interpretation Comments Creatinine Lvl (test code = Creatinine 0.75 0.50-1.40 Lvl) [facility] HospitalOhnclypKHPLTRHPQSOT9473-27-88 22:27:00 Test Item Value Reference Range Interpretation Comments BUN (test code = BUN) 10 7-22 [facility] HospitalOefjvnwLGMLCKSQJKVO4268-19-86 22:27:00 Test Item Value Reference Range Interpretation Comments Glucose Lvl (test code = Glucose Lvl) 92 70-99 [facility] HospitalQbwmnmrWOIVGLSEGAMH8148-43-18 22:27:00 Test Item Value Reference Range Interpretation Comments Potassium Lvl (test code = Potassium 4.0 3.5-5.1 Lvl) [facility] HospitalOfaafyhYVGQPQEGREAB1540-74-47 22:27:00 Test Item Value Reference Range Interpretation Comments Chloride Lvl (test code = Chloride Lvl) 102 95-109 [facility]PmfieopMYHPBBUHTXZQ3821-25-86 22:27:00 Test Item Value Reference Range Interpretation Comments Sodium Lvl (test code = Sodium Lvl) 138 135-145 [facility] HospitalZhqwrynEGLCLFLFRPGS0064-67-29 22:27:00 Test Item Value Reference Range Interpretation Comments ALANINE AMINOTRANSFERASE 21 See_Comment [A utomated message] (test code = ALANINE The sys tem which AMINOTRANSFERASE) generated this result transmitted ref erence range: <=65. Th e reference range was not used to int erpret this result as normal/abnormal . [facility] HospitalMgbssnjUDHGLWMQLNHE6123-86-28 22:27:00 Test Item Value Reference Range Interpretation Comments Alk Phos (test code = Alk Phos) 140 39-136 [facility]oLiazdpsTIUMIXMULQQE8677-65-43 22:27:00 Test Item Value Reference Range Interpretation Comments Albumin Lvl (test code = Albumin Lvl) 3.7 3.5-5.0 [facility] CenterHkdrfvhHKWOPEKCDB4028-72-22 22:27:00 Test Item Value Reference Range Interpretation Comments Basophils # (test code 0.1 See_Comment [Aut omated message] The = Basophils #) system which generated this result tra nsmitted reference range : <=0.2. The reference r jailene was not used to int erpret this result as normal/abnormal . [facility] CenterCmtyjywPFCSSRPICF1840-49-74 22:27:00 Test Item Value Reference Range Interpretation Comments Eosinophils # (test code 0.2 See_Comment [A utomated message] The = Eosinophils #) system whic h generated this result tra nsmitted reference range : <=0.5. The reference r jailene was not used to int erpret this result as normal/abnormal . [facility] CenterJmgbxxbJPQCRPWACR9688-24-21 22:27:00 Test Item Value Reference Range Interpretation Comments Monocytes # (test code 0.8 See_Comment [Aut omated message] The = Monocytes #) system which generated this result tra nsmitted reference range : <=0.8. The reference r jailene was not used to int erpret this result as normal/abnormal . [facility] CenterOexgcayIFEIJDRKIG3903-01-39 22:27:00 Test Item Value Reference Range Interpretation Comments Lymphocytes # (test code = Lymphocytes 3.6 1.0-5.5 #) [facility] CenterUvgxqxaZULXKUFYZW2641-62-48 22:27:00 Test Item Value Reference Range Interpretation Comments Basophils (test code = 0.6 See_Comment [Aut omated message] The Basophils) system which ge nerated this result tra nsmitted reference range : <=1.0. The reference r jailene was not used to int erpret this result as normal/abnormal . [facility] CenterWilioyzAXIALIWOPC9645-29-11 22:27:00 Test Item Value Reference Range Interpretation Comments Eosinophils (test code = 1.5 See_Comment [A utomated message] The Eosinophils) system which ge nerated this result tra nsmitted reference range : <=4.0. The reference r jailene was not used to int erpret this result as normal/abnormal . [facility] CenterDhxpqxhVHVXPPGMPG0494-96-44 22:27:00 Test Item Value Reference Range Interpretation Comments Monocytes (test code = Monocytes) 7.9 2.0-12.0 [facility] CenterGysbqftXIIDKCZIHF8313-34-23 22:27:00 Test Item Value Reference Range Interpretation Comments Lymphocytes (test code = Lymphocytes) 35.2 20.0-40.0 [facility] CenterTysulyvNGKAMRIVZS1568-66-40 22:27:00 Test Item Value Reference Range Interpretation Comments Segs (test code = Segs) 54.8 45.0-75.0 [facility] CenterYdhxmjzGVFTCBJUKA8398-95-89 22:27:00 Test Item Value Reference Range Interpretation Comments Segs-Bands # (test code = Segs-Bands #) 5.5 1.5-8.1 [facility] CenterZtquwlvYDHEFJKNFS8610-57-81 22:27:00 Test Item Value Reference Range Interpretation Comments RDW (test code = RDW) 14.3 11.5-14.5 [facility] CenterEtwlwdfGBTHCDJBDP7647-71-83 22:27:00 Test Item Value Reference Range Interpretation Comments MCHC (test code = MCHC) 34.4 32.0-36.0 [facility] CenterDkonotjLIPMROAZMZ6812-44-80 22:27:00 Test Item Value Reference Range Interpretation Comments MPV (test code = MPV) 9.2 7.4-10.4 [facility] CenterDldfuanAWCCTUZZCU9526-50-59 22:27:00 Test Item Value Reference Range Interpretation Comments Platelet (test code = Platelet) 313 133-450 [facility] CenterWuggeyyPCSATNTYWN1892-10-57 22:27:00 Test Item Value Reference Range Interpretation Comments MCH (test code = MCH) 29.7 pg 27.0-31.0 [facility] CenterWislvboQEEFNRVGVM3513-19-11 22:27:00 Test Item Value Reference Range Interpretation Comments MCV (test code = MCV) 86.4 80.0-98.0 [facility] CenterGflxvssQSYLIZJCQY8572-69-74 22:27:00 Test Item Value Reference Range Interpretation Comments Hct (test code = Hct) 40.2 36.0-48.0 [facility] CenterPvbqitiHEOYYALKCN0301-35-68 22:27:00 Test Item Value Reference Range Interpretation Comments Hgb (test code = Hgb) 13.8 12.0-16.0 [facility] CenterXogpoxbXXDAIDUWDG2366-82-45 22:27:00 Test Item Value Reference Range Interpretation Comments WBC X 10x3 (test code = WBC X 10x3) 10.1 3.7-10.4 [facility]ZfajlshDXOXAUBTWT7731-17-68 22:27:00 Test Item Value Reference Range Interpretation Comments RBC X 10x6 (test code = RBC X 10x6) 4.65 4.20-5.40 [facility]lakeFcmlrvqRTCLMLNCBE0211-88-65 09:12:00 Test Item Value Reference Range Interpretation Comments C-REACTIVE PROTEIN (test code = 9.0 C-REACTIVE PROTEIN) [facility]lakeHlsijmhSSNSMDFOQA9392-06-47 18:44:00 Test Item Value Reference Range Interpretation Comments CHANTEL (test code = CHANTEL) Negative (09/06/16 1:44 PM) [facility]lakeFypbqmgRKEEAO8007-36-37 18:44:00 Test Item Value Reference Range Interpretation Comments HDL (test code = HDL) 39 [facility]lakeIzfifloFXRBFX0237-40-76 18:44:00 Test Item Value Reference Range Interpretation Comments LDL (Calculated) (test code = LDL 105 (Calculated)) [facility]lakeYloyedfMXEWMC9494-87-56 18:44:00 Test Item Value Reference Range Interpretation Comments CHD Risk (test code = CHD Risk) 4.79 3.90-5.80 [facility]lakeMstnzwsWVADIK7242-19-22 18:44:00 Test Item Value Reference Range Interpretation Comments VLDL (test code = VLDL) 43 [facility]lakePeidhhxVTFJWK3390-45-34 18:44:00 Test Item Value Reference Range Interpretation Comments Chol (test code = Chol) 187 [facility]lakeJwfdzwcKKSCUT3977-41-48 18:44:00 Test Item Value Reference Range Interpretation Comments Trig (test code = Trig) 213 [facility] ROFKCKBJI1102-35-43 18:44:00 Test Item Value Reference Range Interpretation Comments Hgb A1C (test code = Hgb A1C) 5.2 [facility]lakeCHEM [id number] 08:38:00 Test Item Value Reference Range Interpretation Comments eGFR (test code = eGFR) 114 [facility] NDZFI1848-69-18 08:38:00 Test Item Value Reference Range Interpretation Comments AGAP (test code = AGAP) 11.6 10.0-20.0 [facility]lakeS[employer] [id number] 08:38:00 Test Item Value Reference Range Interpretation Comments Calcium Lvl (test code = Calcium Lvl) 8.9 8.5-10.5 [facility]2017-07-21 08:38:00 Test Item Value Reference Range Interpretation Comments BUN (test code = BUN) 13 7-22 [facility]2017-07-21 08:38:00 Test Item Value Reference Range Interpretation Comments Glucose Lvl (test code = Glucose Lvl) 100 70-99 [facility]2017-07-21 08:38:00 Test Item Value Reference Range Interpretation Comments CO2 (test code = CO2) 29 24-32 [facility]2017-07-21 08:38:00 Test Item Value Reference Range Interpretation Comments Chloride Lvl (test code = Chloride Lvl) 106 95-109 [facility]2017-07-21 08:38:00 Test Item Value Reference Range Interpretation Comments Potassium Lvl (test code = Potassium 3.6 3.5-5.1 Lvl) [facility]2017-07-21 08:38:00 Test Item Value Reference Range Interpretation Comments Sodium Lvl (test code = Sodium Lvl) 143 135-145 [facility]2017-07-21 08:38:00 Test Item Value Reference Range Interpretation Comments Creatinine Lvl (test code = Creatinine 0.59 0.50-1.40 Lvl) [facility] CenterOpvzndjHAGKLBIJZM8084-17-27 08:38:00 Test Item Value Reference Range Interpretation Comments INR (test code = INR) 0.97 0.85-1.17 [facility] CenterHizrubeMZRUWRMLSX6499-07-85 08:38:00 Test Item Value Reference Range Interpretation Comments aPTT (test code = aPTT) 27.7 s 22.9-35.8 [facility] CenterVncekchQAOHZOXJUK4962-36-67 08:38:00 Test Item Value Reference Range Interpretation Comments PROTIME (test code = PROTIME) 13.1 s 12.0-14.7 [facility] CenterHckxtcpOXYQTSVOSL8625-54-04 08:38:00 Test Item Value Reference Range Interpretation Comments MPV (test code = MPV) 9.9 7.4-10.4 [facility] CenterQwjlinnYXMBNBMLXR9374-47-24 08:38:00 Test Item Value Reference Range Interpretation Comments MCHC (test code = MCHC) 33.9 32.0-36.0 [facility] CenterWbwqsgjNJBVNBFQGJ1549-72-14 08:38:00 Test Item Value Reference Range Interpretation Comments RDW (test code = RDW) 13.9 11.5-14.5 [facility] CenterVaqtlrjGDGOQTGGQL6182-74-81 08:38:00 Test Item Value Reference Range Interpretation Comments Platelet (test code = Platelet) 249 133-450 [facility] CenterNvrsdclKOIUUAXJRM4339-24-12 08:38:00 Test Item Value Reference Range Interpretation Comments Hgb (test code = Hgb) 12.0 12.0-16.0 [facility] CenterNqyjxauDDAPCHMMHW3660-53-18 08:38:00 Test Item Value Reference Range Interpretation Comments Hct (test code = Hct) 35.5 36.0-48.0 [facility] CenterLsjfvimMMYWNRTVMK6836-95-99 08:38:00 Test Item Value Reference Range Interpretation Comments MCV (test code = MCV) 86.2 80.0-98.0 [facility] CenterMhqhvtrPHLFHCXKAG7384-07-85 08:38:00 Test Item Value Reference Range Interpretation Comments MCH (test code = MCH) 29.2 pg 27.0-31.0 [facility] CenterQhzhmsiKVVEOBZMHA9522-82-01 08:38:00 Test Item Value Reference Range Interpretation Comments RBC X 10x6 (test code = RBC X 10x6) 4.12 4.20-5.40 [facility] CenterYkbgbtfDVSTJJLKBY5513-87-87 08:38:00 Test Item Value Reference Range Interpretation Comments WBC X 10x3 (test code = WBC X 10x3) 11.0 3.7-10.4 [facility] CenterWueleteODHCRLEDCN3860-88-79 08:38:00 Test Item Value Reference Range Interpretation Comments Monocytes (test code = Monocytes) 5.9 2.0-12.0 [facility] CenterXifkhoqMIAXOYODYV5770-29-07 08:38:00 Test Item Value Reference Range Interpretation Comments Eosinophils (test code = 0.4 See_Comment [A utomated message] The Eosinophils) system which ge nerated this result tra nsmitted reference range : <=4.0. The reference r jailene was not used to int erpret this result as normal/abnormal . [facility] CenterNpjbrsoFPYNTSFZBV1990-76-24 08:38:00 Test Item Value Reference Range Interpretation Comments Basophils (test code = 0.4 See_Comment [Aut omated message] The Basophils) system which ge nerated this result tra nsmitted reference range : <=1.0. The reference r jailene was not used to int erpret this result as normal/abnormal . [facility] CenterIncbtgdNCHRYHWDSZ9050-71-39 08:38:00 Test Item Value Reference Range Interpretation Comments Segs-Bands # (test code = Segs-Bands #) 8.0 1.5-8.1 [facility] CenterZebunkdEVZQSJUPFN5585-74-94 08:38:00 Test Item Value Reference Range Interpretation Comments Monocytes # (test code 0.7 See_Comment [Aut omated message] The = Monocytes #) system which generated this result tra nsmitted reference range : <=0.8. The reference r jailene was not used to int erpret this result as normal/abnormal . [facility] CenterNcddihkBNASIOIBIP3265-38-10 08:38:00 Test Item Value Reference Range Interpretation Comments Segs (test code = Segs) 73.2 45.0-75.0 [facility] CenterFunstcvHROWTZQHSD4424-32-18 08:38:00 Test Item Value Reference Range Interpretation Comments Lymphocytes (test code = Lymphocytes) 20.1 20.0-40.0 [facility] CenterSwcgfygHJTDZNTEFD2050-78-41 08:38:00 Test Item Value Reference Range Interpretation Comments Lymphocytes # (test code = Lymphocytes 2.2 1.0-5.5 #) [facility]2017-07-20 21:49:00 Test Item Value Reference Range Interpretation Comments Lipase Lvl (test code = Lipase Lvl) 137 73-393 [facility]oKiiATRIUM HEALTH CLEVELANDSFXOE9266-90-37 21:49:00 Test Item Value Reference Range Interpretation Comments A/G Ratio (test code = A/G Ratio) 1.0 0.7-1.6 [facility]2017-07-20 21:49:00 Test Item Value Reference Range Interpretation Comments Globulin (test code = Globulin) 4.2 2.7-4.2 [facility]2017-07-20 21:49:00 Test Item Value Reference Range Interpretation Comments B/C Ratio (test code = B/C Ratio) 14 6-25 [facility]2017-07-20 21:49:00 Test Item Value Reference Range Interpretation Comments AGAP (test code = AGAP) 8.6 10.0-20.0 [facility]2017-07-20 21:49:00 Test Item Value Reference Range Interpretation Comments eGFR (test code = eGFR) 92 [facility]2017-07-20 21:49:00 Test Item Value Reference Range Interpretation Comments Creatinine Lvl (test code = Creatinine 0.80 0.50-1.40 Lvl) [facility]2017-07-20 21:49:00 Test Item Value Reference Range Interpretation Comments Glucose Lvl (test code = Glucose Lvl) 100 70-99 [facility]2017-07-20 21:49:00 Test Item Value Reference Range Interpretation Comments BUN (test code = BUN) 11 7-22 [facility]2017-07-20 21:49:00 Test Item Value Reference Range Interpretation Comments Chloride Lvl (test code = Chloride Lvl) 104 95-109 [facility]2017-07-20 21:49:00 Test Item Value Reference Range Interpretation Comments Potassium Lvl (test code = Potassium 3.6 3.5-5.1 Lvl) [facility]2017-07-20 21:49:00 Test Item Value Reference Range Interpretation Comments ALANINE AMINOTRANSFERASE 25 See_Comment [A utomated message] (test code = ALANINE The sys tem which AMINOTRANSFERASE) generated this result transmitted ref erence range: <=65. Th e reference range was not used to int erpret this result as normal/abnormal . [facility]2017-07-20 21:49:00 Test Item Value Reference Range Interpretation Comments Alk Phos (test code = Alk Phos) 128 39-136 [facility]2017-07-20 21:49:00 Test Item Value Reference Range Interpretation Comments Albumin Lvl (test code = Albumin Lvl) 4.3 3.5-5.0 [facility]2017-07-20 21:49:00 Test Item Value Reference Range Interpretation Comments Total Protein (test code = Total 8.5 6.4-8.4 Protein) [facility]2017-07-20 21:49:00 Test Item Value Reference Range Interpretation Comments ASPARTATE TRANSAMINASE 23 See_Comment [Aut omated message] (test code = ASPARTATE The s ystem which TRANSAMINASE) generated this result transmitted ref erence range: <=37. Th e reference range was not used to interpr et this result as normal/abnormal . [facility]annCHEM [id number] 21:49:00 Test Item Value Reference Range Interpretation Comments Bili Total (test code = Bili Total) 0.4 0.2-1.3 [facility]oannCHEM [id number] 21:49:00 Test Item Value Reference Range Interpretation Comments CO2 (test code = CO2) 32 24-32 [facility]oannCHEM [id number] 21:49:00 Test Item Value Reference Range Interpretation Comments Calcium Lvl (test code = Calcium Lvl) 9.0 8.5-10.5 [facility]oannCHEM [id number] 21:49:00 Test Item Value Reference Range Interpretation Comments Sodium Lvl (test code = Sodium Lvl) 141 135-145 [facility]annDRUG BSDRSO0422-50-15 21:49:00 Test Item Value Reference Range Interpretation Comments U Benzodia Scr (test Negative *NA*(09/04/16 code = U Benzodia Scr) 4:49 PM) [facility]DR[facility] [id number] 21:49:00 Test Item Value Reference Range Interpretation Comments U Cocaine Scr (test Negative *NA*(09/04/16 code = U Cocaine Scr) 4:49 PM) [facility]lakeDR[facility] [id number] 21:49:00 Test Item Value Reference Range Interpretation Comments U Amph Scr (test code Negative *NA*(09/04/16 = U Amph Scr) 4:49 PM) [facility]lakeDR[facility] [id number] 21:49:00 Test Item Value Reference Range Interpretation Comments U Jyothi Scr (test code Negative *NA*(09/04/16 = U Jyothi Scr) 4:49 PM) [facility]DR[facility] [id number] 21:49:00 Test Item Value Reference Range Interpretation Comments U Cannab Scr (test Negative *NA*(09/04/16 code = U Cannab Scr) 4:49 PM) [facility]DR[facility] [id number] 21:49:00 Test Item Value Reference Range Interpretation Comments U Opiate Scr (test Negative *NA*(09/04/16 code = U Opiate Scr) 4:49 PM) [facility]DR[facility] [id number] 21:49:00 Test Item Value Reference Range Interpretation Comments UDS Note (test code = See Note *NA*(09/04/16 UDS Note) 4:49 PM) [facility]DR[facility] [id number] 21:49:00 Test Item Value Reference Range Interpretation Comments U Phencyc Scr (test Negative *NA*(09/04/16 code = U Phencyc Scr) 4:49 PM) [facility]oLjotifuZQEJEEURSH3980-05-38 21:49:00 Test Item Value Reference Range Interpretation Comments Platelet (test code = Platelet) 287 133-450 [facility]oUaneoowQGMAONCPJJ7655-40-68 21:49:00 Test Item Value Reference Range Interpretation Comments MCHC (test code = MCHC) 33.6 32.0-36.0 [facility]oQzaqyhaHARQVOJSWO0934-48-61 21:49:00 Test Item Value Reference Range Interpretation Comments RDW (test code = RDW) 14.0 11.5-14.5 [facility]oOddhtllUCOGJMUTSH5013-12-98 21:49:00 Test Item Value Reference Range Interpretation Comments MPV (test code = MPV) 9.2 7.4-10.4 [facility]oVbizxurZNTIIBGIXY8757-80-30 21:49:00 Test Item Value Reference Range Interpretation Comments RBC X 10x6 (test code = RBC X 10x6) 4.55 4.20-5.40 [facility]oUqyunvkGBGDUKTNZT1543-82-05 21:49:00 Test Item Value Reference Range Interpretation Comments Hgb (test code = Hgb) 13.2 12.0-16.0 [facility]oYqnjvhvZCINLHKSSI5507-60-48 21:49:00 Test Item Value Reference Range Interpretation Comments WBC X 10x3 (test code = WBC X 10x3) 9.8 3.7-10.4 [facility]oGhlrncjPHVUUMQWDK0349-50-27 21:49:00 Test Item Value Reference Range Interpretation Comments MCV (test code = MCV) 86.2 80.0-98.0 [facility]oVceyddfFICGRXJHSO9814-79-78 21:49:00 Test Item Value Reference Range Interpretation Comments MCH (test code = MCH) 29.0 pg 27.0-31.0 [facility]oLeubfkiVDTQLWAPME7190-67-28 21:49:00 Test Item Value Reference Range Interpretation Comments Hct (test code = Hct) 39.2 36.0-48.0 [facility]oEuhiethEOPCHOJPEE4224-12-98 21:49:00 Test Item Value Reference Range Interpretation Comments Eosinophils (test code = 1.7 See_Comment [A utomated message] The Eosinophils) system which ge nerated this result tra nsmitted reference range : <=4.0. The reference r jailene was not used to int erpret this result as normal/abnormal . [facility] CenterWljdahuVTSNPLHONE2770-45-90 21:49:00 Test Item Value Reference Range Interpretation Comments Basophils (test code = 0.4 See_Comment [Aut omated message] The Basophils) system which ge nerated this result tra nsmitted reference range : <=1.0. The reference r jailene was not used to int erpret this result as normal/abnormal . [facility] CenterCdkgvzmVIGEGUIXVV0355-13-14 21:49:00 Test Item Value Reference Range Interpretation Comments Segs-Bands # (test code = Segs-Bands #) 6.2 1.5-8.1 [facility] CenterWjarexjENNWNGNVEO2137-45-25 21:49:00 Test Item Value Reference Range Interpretation Comments Lymphocytes # (test code = Lymphocytes 2.6 1.0-5.5 #) [facility] CenterOdjujuxIGWXHEFHNZ1358-70-39 21:49:00 Test Item Value Reference Range Interpretation Comments Monocytes # (test code 0.7 See_Comment [Aut omated message] The = Monocytes #) system which generated this result tra nsmitted reference range : <=0.8. The reference r jailene was not used to int erpret this result as normal/abnormal . [facility] CenterNpjcxfhYPBJDALONT4912-58-07 21:49:00 Test Item Value Reference Range Interpretation Comments Eosinophils # (test code 0.2 See_Comment [A utomated message] The = Eosinophils #) system whic h generated this result tra nsmitted reference range : <=0.5. The reference r jailene was not used to int erpret this result as normal/abnormal . [facility] Cent[id number] 21:49:00 Test Item Value Reference Range Interpretation Comments Lymphocytes (test code = Lymphocytes) 27.1 20.0-40.0 [facility] CenterVealnhyQRDWAJHFVT3935-87-06 21:49:00 Test Item Value Reference Range Interpretation Comments Segs (test code = Segs) 63.5 45.0-75.0 [facility] CenterFrogtjzMZFQOKLSAY3222-88-78 21:49:00 Test Item Value Reference Range Interpretation Comments Monocytes (test code = Monocytes) 7.3 2.0-12.0 [facility] AND [id number] 21:49:00 Test Item Value Reference Range Interpretation Comments UA Turbidity (test code Slight Cloudy = UA Turbidity) (09/04/16 4:49 PM) [facility] AND [id number] 21:49:00 Test Item Value Reference Range Interpretation Comments UA RBC (test code = 3-5 /HPF See_Comment [Automa evin message] The UA RBC) system which ge nerated this result tra nsmitted reference range : <=2. The reference range was not used to interpr et this result as kev l/abnormal. [facility] AND [id number] 21:49:00 Test Item Value Reference Range Interpretation Comments UA Spec Grav (test >=1.030 *ABN*(09/04/16 code = UA Spec Grav) 4:49 PM) [facility] AND [id number] 21:49:00 Test Item Value Reference Range Interpretation Comments UA pH (test code = UA pH) 5.5 1 5.0-8.0 [facility] AND [id number] 21:49:00 Test Item Value Reference Range Interpretation Comments UA Color (test code = Yellow *NA*(09/04/16 UA Color) 4:49 PM) [facility] AND [id number] 21:49:00 Test Item Value Reference Range Interpretation Comments UA Bili (test code = Small *ABN*(09/04/16 UA Bili) 4:49 PM) [facility] AND [id number] 21:49:00 Test Item Value Reference Range Interpretation Comments UA Blood (test code = Trace *ABN*(09/04/16 UA Blood) 4:49 PM) [facility] AND [id number] 21:49:00 Test Item Value Reference Range Interpretation Comments UA Urobilinogen (test code = UA 0.2 0.1-1.0 Urobilinogen) [facility] AND [id number] 21:49:00 Test Item Value Reference Range Interpretation Comments UA Nitrite (test code Negative (09/04/16 4:49 = UA Nitrite) PM) [facility] [id number] 21:49:00 Test Item Value Reference Range Interpretation Comments UA Leuk Est (test Negative (09/04/16 4:49 code = UA Leuk Est) PM) [facility] [id number] 21:49:00 Test Item Value Reference Range Interpretation Comments UA WBC (test code = UA WBC) 0-2 /HPF [facility] [id number] 21:49:00 Test Item Value Reference Range Interpretation Comments UA Sq Epi (test code = UA Sq Epi) Many /LPF [facility] [id number] 21:49:00 Test Item Value Reference Range Interpretation Comments UA Hooper Yeast (test code = UA Hooper Few /HPF Yeast) [facility] [id number] 21:49:00 Test Item Value Reference Range Interpretation Comments UA Hyph Yeast (test code = UA Hyph Few /HPF Yeast) [facility] [id number] 21:49:00 Test Item Value Reference Range Interpretation Comments UA Bacteria (test code = UA Few /HPF Bacteria) [facility] [id number] 21:49:00 Test Item Value Reference Range Interpretation Comments UA Mucus (test code = UA Mucus) Many /LPF [facility] [id number] 21:49:00 Test Item Value Reference Range Interpretation Comments UA Protein (test code = UA Protein) 30 mg/dL [facility] [id number] 21:49:00 Test Item Value Reference Range Interpretation Comments UA Glucose (test code Negative (09/04/16 4:49 = UA Glucose) PM) [facility] [id number] 21:49:00 Test Item Value Reference Range Interpretation Comments UA Ketones (test code Negative *NA*(09/04/16 = UA Ketones) 4:49 PM) [facility] [id number] 03:17:00 Test Item Value Reference Range Interpretation Comments Lipase Lvl (test code = Lipase Lvl) 87 73-393 [facility]DklxhweWVKEFLVWCFUX9317-31-00 03:17:00 Test Item Value Reference Range Interpretation Comments AGAP (test code = AGAP) 9.5 10.0-20.0 [facility]Qsc[id number] 03:17:00 Test Item Value Reference Range Interpretation Comments Globulin (test code = Globulin) 4.5 2.7-4.2 [facility]MkybvwfDURZMGXPQCMX6420-09-53 03:17:00 Test Item Value Reference Range Interpretation Comments A/G Ratio (test code = A/G Ratio) 0.7 0.7-1.6 [facility] HospitalQnicbhwDKKHGVMYZJZL1907-16-92 03:17:00 Test Item Value Reference Range Interpretation Comments B/C Ratio (test code = B/C Ratio) 8 6-25 [facility] HospitalGhqmqgvMEXKVVPTSFJV8217-65-24 03:17:00 Test Item Value Reference Range Interpretation Comments ASPARTATE TRANSAMINASE 17 See_Comment [Aut omated message] (test code = ASPARTATE The s ystem which TRANSAMINASE) generated this result transmitted ref erence range: <=37. Th e reference range was not used to interpr et this result as normal/abnormal . [facility] HospitalOdjbnpeVXPVCFGYITEO9554-90-85 03:17:00 Test Item Value Reference Range Interpretation Comments eGFR (test code = eGFR) 81 [facility] HospitalRgtqunjTVOOLJZWTMYV3202-57-58 03:17:00 Test Item Value Reference Range Interpretation Comments Glucose Lvl (test code = Glucose Lvl) 107 70-99 [facility] HospitalGbdypliVPHFWJBOXIUR8165-31-27 03:17:00 Test Item Value Reference Range Interpretation Comments Albumin Lvl (test code = Albumin Lvl) 3.3 3.5-5.0 [facility] HospitalEabgmzsMZWLGBPOTGRC9484-93-06 03:17:00 Test Item Value Reference Range Interpretation Comments ALANINE AMINOTRANSFERASE 22 See_Comment [A utomated message] (test code = ALANINE The sys tem which AMINOTRANSFERASE) generated this result transmitted ref erence range: <=65. Th e reference range was not used to int erpret this result as normal/abnormal . [facility] HospitalDiwxmgyPWVMOGNODRVB2945-84-08 03:17:00 Test Item Value Reference Range Interpretation Comments Total Protein (test code = Total 7.8 6.4-8.4 Protein) [facility] HospitalIrvfetiOYGFSSELJMDN2871-29-78 03:17:00 Test Item Value Reference Range Interpretation Comments Calcium Lvl (test code = Calcium Lvl) 8.8 8.5-10.5 [facility] HospitalRvtlkeoTUCBPOGQAMDS8624-52-41 03:17:00 Test Item Value Reference Range Interpretation Comments Bili Total (test code = Bili Total) 0.2 0.2-1.3 [facility] HospitalOlwbdubPRKVDGRKUZRN5334-38-31 03:17:00 Test Item Value Reference Range Interpretation Comments CO2 (test code = CO2) 28 24-32 [facility] HospitalXcmgwuuUGLTBCQSYXPV0103-58-51 03:17:00 Test Item Value Reference Range Interpretation Comments Creatinine Lvl (test code = Creatinine 0.88 0.50-1.40 Lvl) [facility] HospitalBulngceWMMVYUFQONBR4275-25-50 03:17:00 Test Item Value Reference Range Interpretation Comments Potassium Lvl (test code = Potassium 3.5 3.5-5.1 Lvl) [facility] HospitalVyidbyqGPLZGAHEHROY2763-70-17 03:17:00 Test Item Value Reference Range Interpretation Comments Chloride Lvl (test code = Chloride Lvl) 107 95-109 [facility] HospitalKxzqwpwIWEDHGDUTDMU6508-85-20 03:17:00 Test Item Value Reference Range Interpretation Comments BUN (test code = BUN) 7 7-22 [facility] HospitalUxfjmdqCHOWYDZCQGIY1476-76-40 03:17:00 Test Item Value Reference Range Interpretation Comments Alk Phos (test code = Alk Phos) 124 39-136 [facility] HospitalTcniaesUWJGTTSMVRYJ7376-57-17 03:17:00 Test Item Value Reference Range Interpretation Comments Sodium Lvl (test code = Sodium Lvl) 141 135-145 [facility] CenterQpkvqzuIEDEDSTPIC9854-66-59 03:17:00 Test Item Value Reference Range Interpretation Comments Lymphocytes (test code = Lymphocytes) 49.9 20.0-40.0 [facility] CenterHxjgvuuSUDNAKXLNK8122-51-72 03:17:00 Test Item Value Reference Range Interpretation Comments Monocytes (test code = Monocytes) 9.2 2.0-12.0 [facility] CenterVdupanaLZDGPWUAVG5090-40-94 03:17:00 Test Item Value Reference Range Interpretation Comments Eosinophils (test code = 3.4 See_Comment [A utomated message] The Eosinophils) system which ge nerated this result tra nsmitted reference range : <=4.0. The reference r jailene was not used to int erpret this result as normal/abnormal . [facility] CenterLcrxtibCFLBWUWUPJ4120-77-95 03:17:00 Test Item Value Reference Range Interpretation Comments Segs (test code = Segs) 36.9 45.0-75.0 [facility] CenterPxerpbqHDCFVDUVFE8635-38-72 03:17:00 Test Item Value Reference Range Interpretation Comments Monocytes # (test code 0.7 See_Comment [Aut omated message] The = Monocytes #) system which generated this result tra nsmitted reference range : <=0.8. The reference r jailene was not used to int erpret this result as normal/abnormal . [facility] CenterDdhrzrdLJQHLDFXPQ9476-58-47 03:17:00 Test Item Value Reference Range Interpretation Comments Basophils (test code = 0.6 See_Comment [Aut omated message] The Basophils) system which ge nerated this result tra nsmitted reference range : <=1.0. The reference r jailene was not used to int erpret this result as normal/abnormal . [facility] CenterFfvshpbLJPMOPMVCH9085-66-36 03:17:00 Test Item Value Reference Range Interpretation Comments Segs-Bands # (test code = Segs-Bands #) 2.8 1.5-8.1 [facility] CenterAnfpjgvOAINYLJTPU2914-13-68 03:17:00 Test Item Value Reference Range Interpretation Comments Eosinophils # (test code 0.3 See_Comment [A utomated message] The = Eosinophils #) system whic h generated this result tra nsmitted reference range : <=0.5. The reference r jailene was not used to int erpret this result as normal/abnormal . [facility] CenterCetputaHQRDALLOLM6242-61-53 03:17:00 Test Item Value Reference Range Interpretation Comments Lymphocytes # (test code = Lymphocytes 3.8 1.0-5.5 #) [facility] CenterZhezbtjOJBEUZDEJK0627-13-52 03:17:00 Test Item Value Reference Range Interpretation Comments MCHC (test code = MCHC) 33.8 32.0-36.0 [facility] CenterIjmjjlcPQGJTTEQUX3444-93-65 03:17:00 Test Item Value Reference Range Interpretation Comments MPV (test code = MPV) 9.4 7.4-10.4 [facility] CenterPqxteftVKZGDHLDMI1667-37-81 03:17:00 Test Item Value Reference Range Interpretation Comments RDW (test code = RDW) 13.8 11.5-14.5 [facility] CenterHajuvomJKTLDCETTM7019-17-81 03:17:00 Test Item Value Reference Range Interpretation Comments Platelet (test code = Platelet) 259 133-450 [facility] CenterAeaaxzhEQJYOWLUMD9584-81-67 03:17:00 Test Item Value Reference Range Interpretation Comments WBC X 10x3 (test code = WBC X 10x3) 7.7 3.7-10.4 [facility] CenterManooyqZXJSUQADNA8467-05-56 03:17:00 Test Item Value Reference Range Interpretation Comments Hgb (test code = Hgb) 12.2 12.0-16.0 [facility] CenterIjlzjxpTTOGQNYCOW7337-92-43 03:17:00 Test Item Value Reference Range Interpretation Comments RBC X 10x6 (test code = RBC X 10x6) 4.20 4.20-5.40 [facility] CenterYkxsikpEPFESMAYJW8912-68-17 03:17:00 Test Item Value Reference Range Interpretation Comments MCV (test code = MCV) 85.8 80.0-98.0 [facility] CenterZsgnejuXCYNYQCYRY3389-30-14 03:17:00 Test Item Value Reference Range Interpretation Comments Hct (test code = Hct) 36.1 36.0-48.0 [facility] CenterCrkbbzrNBDCPUOIGD4619-79-90 03:17:00 Test Item Value Reference Range Interpretation Comments MCH (test code = MCH) 29.0 pg 27.0-31.0 [facility] [id number] 03:17:00 Test Item Value Reference Range Interpretation Comments UA Bacteria (test code = UA Few /HPF Bacteria) [facility] [id number] 03:17:00 Test Item Value Reference Range Interpretation Comments UA RBC (test code 11-20 /HPF See_Comment [Automate d message] The = UA RBC) system which ge nerated this result tra nsmitted reference range : <=2. The reference range was not used to interpr et this result as normal/abnormal . [facility] [id number] 03:17:00 Test Item Value Reference Range Interpretation Comments UA Sq Epi (test code = UA Sq Occasional /LPF Epi) [facility] [id number] 03:17:00 Test Item Value Reference Range Interpretation Comments UA WBC (test code = UA WBC) 6-10 /HPF [facility] [id number] 03:17:00 Test Item Value Reference Range Interpretation Comments UA Spec Grav (test code *NA*(08/16/16 10:17 PM) = UA Spec Grav) [facility] [id number] 03:17:00 Test Item Value Reference Range Interpretation Comments UA Turbidity (test code = Clear (08/16/16 10:17 UA Turbidity) PM) [facility] [id number] 03:17:00 Test Item Value Reference Range Interpretation Comments UA Color (test code = Yellow *NA*(08/16/16 UA Color) 10:17 PM) [facility] [id number] 03:17:00 Test Item Value Reference Range Interpretation Comments UA Nitrite (test code Negative (08/16/16 10:17 = UA Nitrite) PM) [facility] [id number] 03:17:00 Test Item Value Reference Range Interpretation Comments UA Leuk Est (test code Small *ABN*(08/16/16 = UA Leuk Est) 10:17 PM) [facility] [id number] 03:17:00 Test Item Value Reference Range Interpretation Comments UA pH (test code = UA pH) 6.0 1 5.0-8.0 [facility] [id number] 03:17:00 Test Item Value Reference Range Interpretation Comments UA Protein (test code Negative (08/16/16 10:17 = UA Protein) PM) [facility] [id number] 03:17:00 Test Item Value Reference Range Interpretation Comments UA Urobilinogen (test code = UA 0.2 0.1-1.0 Urobilinogen) [facility] [id number] 03:17:00 Test Item Value Reference Range Interpretation Comments UA Blood (test code = Large *ABN*(08/16/16 UA Blood) 10:17 PM) [facility] [id number] 03:17:00 Test Item Value Reference Range Interpretation Comments UA Bili (test code = Negative *NA*(08/16/16 UA Bili) 10:17 PM) [facility] [id number] 03:17:00 Test Item Value Reference Range Interpretation Comments UA Ketones (test code Negative *NA*(08/16/16 = UA Ketones) 10:17 PM) [facility] [id number] 03:17:00 Test Item Value Reference Range Interpretation Comments UA Glucose (test code Negative (08/16/16 10:17 = UA Glucose) PM) [facility]2017-05-10 23:24:00 Test Item Value Reference Range Interpretation Comments Lipase Lvl (test code = Lipase Lvl) 330 73-393 [facility]2017-05-10 23:24:00 Test Item Value Reference Range Interpretation Comments eGFR (test code = eGFR) 95 [facility]2017-05-10 23:24:00 Test Item Value Reference Range Interpretation Comments CO2 (test code = CO2) 30 24-32 [facility]2017-05-10 23:24:00 Test Item Value Reference Range Interpretation Comments Chloride Lvl (test code = Chloride Lvl) 101 95-109 [facility]2017-05-10 23:24:00 Test Item Value Reference Range Interpretation Comments Calcium Lvl (test code = Calcium Lvl) 9.5 8.5-10.5 [facility]2017-05-10 23:24:00 Test Item Value Reference Range Interpretation Comments Bili Total (test code = Bili Total) 0.6 0.2-1.3 [facility]2017-05-10 23:24:00 Test Item Value Reference Range Interpretation Comments Total Protein (test code = Total 9.0 6.4-8.4 Protein) [facility]2017-05-10 23:24:00 Test Item Value Reference Range Interpretation Comments ASPARTATE TRANSAMINASE 21 See_Comment [Aut omated message] (test code = ASPARTATE The s ystem which TRANSAMINASE) generated this result transmitted ref erence range: <=37. Th e reference range was not used to interpr et this result as normal/abnormal . [facility]2017-05-10 23:24:00 Test Item Value Reference Range Interpretation Comments ALANINE AMINOTRANSFERASE 32 See_Comment [A utomated message] (test code = ALANINE The sys tem which AMINOTRANSFERASE) generated this result transmitted ref erence range: <=65. Th e reference range was not used to int erpret this result as normal/abnormal . [facility]2017-05-10 23:24:00 Test Item Value Reference Range Interpretation Comments Albumin Lvl (test code = Albumin Lvl) 4.1 3.5-5.0 [facility]2017-05-10 23:24:00 Test Item Value Reference Range Interpretation Comments Alk Phos (test code = Alk Phos) 129 39-136 [facility]2017-05-10 23:24:00 Test Item Value Reference Range Interpretation Comments Glucose Lvl (test code = Glucose Lvl) 104 70-99 [facility]2017-05-10 23:24:00 Test Item Value Reference Range Interpretation Comments Potassium Lvl (test code = Potassium 3.6 3.5-5.1 Lvl) [facility]2017-05-10 23:24:00 Test Item Value Reference Range Interpretation Comments Sodium Lvl (test code = Sodium Lvl) 139 135-145 [facility]2017-05-10 23:24:00 Test Item Value Reference Range Interpretation Comments Creatinine Lvl (test code = Creatinine 0.78 0.50-1.40 Lvl) [facility]2017-05-10 23:24:00 Test Item Value Reference Range Interpretation Comments BUN (test code = BUN) 6 7-22 [place] [id number] 23:24:00 Test Item Value Reference Range Interpretation Comments Globulin (test code = Globulin) 4.9 2.7-4.2 [facility]2017-05-10 23:24:00 Test Item Value Reference Range Interpretation Comments B/C Ratio (test code = B/C Ratio) 8 6-25 [facility]2017-05-10 23:24:00 Test Item Value Reference Range Interpretation Comments AGAP (test code = AGAP) 11.6 10.0-20.0 [facility]2017-05-10 23:24:00 Test Item Value Reference Range Interpretation Comments A/G Ratio (test code = A/G Ratio) 0.8 0.7-1.6 [facility] CenterMrmahxiHJCVNHLQKA8693-85-09 23:24:00 Test Item Value Reference Range Interpretation Comments Lymphocytes (test code = Lymphocytes) 16.0 20.0-40.0 [facility] CenterVsjlbtbECOVTXYNDW6492-84-18 23:24:00 Test Item Value Reference Range Interpretation Comments Segs (test code = Segs) 75.5 45.0-75.0 [facility] CenterRggggorSMQUETAGHC6470-48-14 23:24:00 Test Item Value Reference Range Interpretation Comments Segs-Bands # (test code = Segs-Bands #) 12.1 1.5-8.1 [facility] CenterIlnqiuiVAHKDUQYSI1251-03-33 23:24:00 Test Item Value Reference Range Interpretation Comments Eosinophils (test code = 0.8 See_Comment [A utomated message] The Eosinophils) system which ge nerated this result tra nsmitted reference range : <=4.0. The reference r jailene was not used to int erpret this result as normal/abnormal . [facility] CenterRapkykqMDPZIJQCVD8379-89-74 23:24:00 Test Item Value Reference Range Interpretation Comments Basophils (test code = 0.2 See_Comment [Aut omated message] The Basophils) system which ge nerated this result tra nsmitted reference range : <=1.0. The reference r jailene was not used to int erpret this result as normal/abnormal . [facility] CenterVmqusvdTFDJNIRALH0786-46-75 23:24:00 Test Item Value Reference Range Interpretation Comments Monocytes (test code = Monocytes) 7.5 2.0-12.0 [facility] CenterTtqnhblVDWZWDLQQU0930-21-62 23:24:00 Test Item Value Reference Range Interpretation Comments Eosinophils # (test code 0.1 See_Comment [A utomated message] The = Eosinophils #) system whic h generated this result tra nsmitted reference range : <=0.5. The reference r jailene was not used to int erpret this result as normal/abnormal . [facility] CenterIprhanmGLIHKRDKJG1382-63-98 23:24:00 Test Item Value Reference Range Interpretation Comments Lymphocytes # (test code = Lymphocytes 2.6 1.0-5.5 #) [facility] C[id number] 23:24:00 Test Item Value Reference Range Interpretation Comments Monocytes # (test code 1.2 See_Comment [Aut omated message] The = Monocytes #) system which generated this result tra nsmitted reference range : <=0.8. The reference r jailene was not used to int erpret this result as normal/abnormal . [facility] CenterLrdgrclUXVWRTLKYE3900-52-68 23:24:00 Test Item Value Reference Range Interpretation Comments MCH (test code = MCH) 28.2 pg 27.0-31.0 [facility] CenterBxlpiqfFBWMJHZPPZ7032-66-03 23:24:00 Test Item Value Reference Range Interpretation Comments MCV (test code = MCV) 84.8 80.0-98.0 [facility] CenterFirhngpDZEYAMLXLJ0566-94-65 23:24:00 Test Item Value Reference Range Interpretation Comments Hct (test code = Hct) 38.0 36.0-48.0 [facility] CenterKcjvaseZGNIXAVHUE8403-57-75 23:24:00 Test Item Value Reference Range Interpretation Comments Hgb (test code = Hgb) 12.6 12.0-16.0 [facility] CenterPscznuhWIFYWQYMEG8388-92-49 23:24:00 Test Item Value Reference Range Interpretation Comments Platelet (test code = Platelet) 268 133-450 [facility] CenterDitsmnvMJZSNHFFCX1406-95-26 23:24:00 Test Item Value Reference Range Interpretation Comments RDW (test code = RDW) 13.6 11.5-14.5 [facility] CenterRhlxvoxKBRPGGVMYZ1031-63-01 23:24:00 Test Item Value Reference Range Interpretation Comments MCHC (test code = MCHC) 33.2 32.0-36.0 [facility] Cent[id number] 23:24:00 Test Item Value Reference Range Interpretation Comments MPV (test code = MPV) 9.5 7.4-10.4 [facility] CenterInirfbqAERGIPXUTO7519-72-49 23:24:00 Test Item Value Reference Range Interpretation Comments RBC X 10x6 (test code = RBC X 10x6) 4.48 4.20-5.40 [facility] CenterRmbqoraBCPKJXGMIO6037-28-74 23:24:00 Test Item Value Reference Range Interpretation Comments WBC X 10x3 (test code = WBC X 10x3) 16.0 3.7-10.4 [facility]2017-05-10 23:24:00 Test Item Value Reference Range Interpretation Comments UA Spec Grav (test code = UA Spec 1.015 1 Grav) [facility]2017-05-10 23:24:00 Test Item Value Reference Range Interpretation Comments UA pH (test code = UA pH) 6.0 1 5.0-8.0 [facility]2017-05-10 23:24:00 Test Item Value Reference Range Interpretation Comments UA Protein (test code = UA Protein) 30 mg/dL [facility]2017-05-10 23:24:00 Test Item Value Reference Range Interpretation Comments UA Glucose (test code Negative (06/25/16 6:24 = UA Glucose) PM) [facility] [id number] 23:24:00 Test Item Value Reference Range Interpretation Comments UA Ketones (test code Negative *NA*(06/25/16 = UA Ketones) 6:24 PM) [facility] [id number] 23:24:00 Test Item Value Reference Range Interpretation Comments UA Turbidity (test code = Clear (06/25/16 6:24 UA Turbidity) PM) [facility] [id number] 23:24:00 Test Item Value Reference Range Interpretation Comments UA Color (test code = Yellow *NA*(06/25/16 UA Color) 6:24 PM) [facility] [id number] 23:24:00 Test Item Value Reference Range Interpretation Comments UA Bili (test code = Negative *NA*(06/25/16 UA Bili) 6:24 PM) [facility] [id number] 23:24:00 Test Item Value Reference Range Interpretation Comments UA Leuk Est (test Negative (06/25/16 6:24 code = UA Leuk Est) PM) [facility] [id number] 23:24:00 Test Item Value Reference Range Interpretation Comments UA Urobilinogen (test code = UA 0.2 0.1-1.0 Urobilinogen) [facility] [id number] 23:24:00 Test Item Value Reference Range Interpretation Comments UA Blood (test code = Moderate *ABN*(06/25/16 UA Blood) 6:24 PM) [facility] [id number] 23:24:00 Test Item Value Reference Range Interpretation Comments UA Nitrite (test code Negative (06/25/16 6:24 = UA Nitrite) PM) [facility] [id number] 23:24:00 Test Item Value Reference Range Interpretation Comments UA WBC (test code = UA WBC) 0-2 /HPF [facility] [id number] 23:24:00 Test Item Value Reference Range Interpretation Comments UA Mucus (test code = UA Mucus) Few /LPF [facility] [id number] 23:24:00 Test Item Value Reference Range Interpretation Comments UA RBC (test code = 3-5 /HPF See_Comment [Automa evin message] The UA RBC) system which ge nerated this result tra nsmitted reference range : <=2. The reference range was not used to interpr et this result as kev l/abnormal. [facility] [id number] 23:24:00 Test Item Value Reference Range Interpretation Comments UA Bacteria (test code = UA Moderate /HPF Bacteria) [facility] [id number] 23:24:00 Test Item Value Reference Range Interpretation Comments UA Sq Epi (test code = UA Sq Epi) Few /LPF [facility] [id number] 00:23:00 Test Item Value Reference Range Interpretation Comments UA Bili (test code = Negative *NA*(06/03/16 UA Bili) 7:23 PM) [facility] [id number] 00:23:00 Test Item Value Reference Range Interpretation Comments UA Ketones (test code Negative *NA*(06/03/16 = UA Ketones) 7:23 PM) [facility] [id number] 00:23:00 Test Item Value Reference Range Interpretation Comments UA Sq Epi (test code = UA Sq Occasional /LPF Epi) [facility] [id number] 00:23:00 Test Item Value Reference Range Interpretation Comments UA Leuk Est (test Negative (06/03/16 7:23 code = UA Leuk Est) PM) [facility] [id number] 00:23:00 Test Item Value Reference Range Interpretation Comments UA Nitrite (test code Negative (06/03/16 7:23 = UA Nitrite) PM) [facility] [id number] 00:23:00 Test Item Value Reference Range Interpretation Comments UA Urobilinogen (test code = UA 0.2 0.1-1.0 Urobilinogen) [facility] [id number] 00:23:00 Test Item Value Reference Range Interpretation Comments UA Blood (test code = Trace *ABN*(06/03/16 UA Blood) 7:23 PM) [facility] AND [id number] 00:23:00 Test Item Value Reference Range Interpretation Comments UA Glucose (test code Negative (06/03/16 7:23 = UA Glucose) PM) [facility] AND [id number] 00:23:00 Test Item Value Reference Range Interpretation Comments UA Protein (test code Negative (06/03/16 7:23 = UA Protein) PM) [facility] [id number] 00:23:00 Test Item Value Reference Range Interpretation Comments UA pH (test code = UA pH) 5.5 1 5.0-8.0 [facility] AND [id number] 00:23:00 Test Item Value Reference Range Interpretation Comments UA Spec Grav (test code = UA Spec 1.010 1 Grav) [facility] AND [id number] 00:23:00 Test Item Value Reference Range Interpretation Comments UA Turbidity (test code = Clear (06/03/16 7:23 UA Turbidity) PM) [facility] AND [id number] 00:23:00 Test Item Value Reference Range Interpretation Comments UA Color (test code = Yellow *NA*(06/03/16 UA Color) 7:23 PM) [facility] [id number] 00:23:00 Test Item Value Reference Range Interpretation Comments UA Bacteria (test code = None Seen (06/03/16 UA Bacteria) 7:23 PM) [facility] AND [id number] 00:23:00 Test Item Value Reference Range Interpretation Comments UA RBC (test code = 0-2 /HPF See_Comment [Automa evin message] The UA RBC) system which ge nerated this result tra nsmitted reference range : <=2. The reference range was not used to interpr et this result as kev l/abnormal. [facility] AND [id number] 00:23:00 Test Item Value Reference Range Interpretation Comments UA WBC (test code = UA WBC) 0-2 /HPF [id number] 21:03:00 Test Item Value Reference Range Interpretation Comments D-Dimer (test code = D-Dimer) 0.27 [facility]lakeCHEM [id number] 19:27:00 Test Item Value Reference Range Interpretation Comments Lipase Lvl (test code = Lipase Lvl) 367 73-393 [facility]lakeCHE[facility] [id number] 19:27:00 Test Item Value Reference Range Interpretation Comments eGFR (test code = eGFR) 109 [facility]2017-03-29 19:27:00 Test Item Value Reference Range Interpretation Comments Alk Phos (test code = Alk Phos) 120 39-136 [facility]2017-03-29 19:27:00 Test Item Value Reference Range Interpretation Comments ALANINE AMINOTRANSFERASE 29 See_Comment [A utomated message] (test code = ALANINE The sys tem which AMINOTRANSFERASE) generated this result transmitted ref erence range: <=65. Th e reference range was not used to int erpret this result as normal/abnormal . [facility]2017-03-29 19:27:00 Test Item Value Reference Range Interpretation Comments Albumin Lvl (test code = Albumin Lvl) 3.9 3.5-5.0 [facility]2017-03-29 19:27:00 Test Item Value Reference Range Interpretation Comments Potassium Lvl (test code = Potassium 3.7 3.5-5.1 Lvl) [facility]2017-03-29 19:27:00 Test Item Value Reference Range Interpretation Comments Chloride Lvl (test code = Chloride Lvl) 104 95-109 [facility]2017-03-29 19:27:00 Test Item Value Reference Range Interpretation Comments Creatinine Lvl (test code = Creatinine 0.68 0.50-1.40 Lvl) [facility]2017-03-29 19:27:00 Test Item Value Reference Range Interpretation Comments Sodium Lvl (test code = Sodium Lvl) 143 135-145 [facility]2017-03-29 19:27:00 Test Item Value Reference Range Interpretation Comments Glucose Lvl (test code = Glucose Lvl) 93 70-99 [facility]2017-03-29 19:27:00 Test Item Value Reference Range Interpretation Comments BUN (test code = BUN) 10 7-22 [facility]2017-03-29 19:27:00 Test Item Value Reference Range Interpretation Comments Total Protein (test code = Total 8.0 6.4-8.4 Protein) [facility]2017-03-29 19:27:00 Test Item Value Reference Range Interpretation Comments Bili Total (test code = Bili Total) 0.2 0.2-1.3 [facility]2017-03-29 19:27:00 Test Item Value Reference Range Interpretation Comments CO2 (test code = CO2) 33 24-32 [facility]2017-03-29 19:27:00 Test Item Value Reference Range Interpretation Comments Calcium Lvl (test code = Calcium Lvl) 9.1 8.5-10.5 [facility]2017-03-29 19:27:00 Test Item Value Reference Range Interpretation Comments ASPARTATE TRANSAMINASE 25 See_Comment [Aut omated message] (test code = ASPARTATE The s ystem which TRANSAMINASE) generated this result transmitted ref erence range: <=37. Th e reference range was not used to interpr et this result as normal/abnormal . [facility]2017-03-29 19:27:00 Test Item Value Reference Range Interpretation Comments A/G Ratio (test code = A/G Ratio) 1.0 0.7-1.6 [facility]2017-03-29 19:27:00 Test Item Value Reference Range Interpretation Comments Globulin (test code = Globulin) 4.1 2.7-4.2 [facility]2017-03-29 19:27:00 Test Item Value Reference Range Interpretation Comments AGAP (test code = AGAP) 9.7 10.0-20.0 [facility]2017-03-29 19:27:00 Test Item Value Reference Range Interpretation Comments B/C Ratio (test code = B/C Ratio) 15 6-25 [facility] CenterKahkanhPMWSYQAPPN4519-06-32 19:27:00 Test Item Value Reference Range Interpretation Comments Basophils # (test code 0.1 See_Comment [Aut omated message] The = Basophils #) system which generated this result tra nsmitted reference range : <=0.2. The reference r jailene was not used to int erpret this result as normal/abnormal . [facility] CenterJcvoqdeRMLPRTNJLS6565-71-36 19:27:00 Test Item Value Reference Range Interpretation Comments Monocytes # (test code 0.8 See_Comment [Aut omated message] The = Monocytes #) system which generated this result tra nsmitted reference range : <=0.8. The reference r jailene was not used to int erpret this result as normal/abnormal . [facility] CenterUiemaovLZUSIJKGVC6023-90-25 19:27:00 Test Item Value Reference Range Interpretation Comments Segs-Bands # (test code = Segs-Bands #) 4.8 1.5-8.1 [facility] Cent[id number] 19:27:00 Test Item Value Reference Range Interpretation Comments Lymphocytes # (test code = Lymphocytes 3.3 1.0-5.5 #) [facility] Cent[id number] 19:27:00 Test Item Value Reference Range Interpretation Comments Eosinophils # (test code 0.3 See_Comment [A utomated message] The = Eosinophils #) system whic h generated this result tra nsmitted reference range : <=0.5. The reference r jailene was not used to int erpret this result as normal/abnormal . [facility] CenterUgdbcxzZDKQMYTRCJ7521-43-69 19:27:00 Test Item Value Reference Range Interpretation Comments Eosinophils (test code = 2.9 See_Comment [A utomated message] The Eosinophils) system which ge nerated this result tra nsmitted reference range : <=4.0. The reference r jailene was not used to int erpret this result as normal/abnormal . [facility] Cent[id number] 19:27:00 Test Item Value Reference Range Interpretation Comments Basophils (test code = 0.6 See_Comment [Aut omated message] The Basophils) system which ge nerated this result tra nsmitted reference range : <=1.0. The reference r jailene was not used to int erpret this result as normal/abnormal . [facility] CenterAyadyodVMRIPFHLJV5618-40-55 19:27:00 Test Item Value Reference Range Interpretation Comments Monocytes (test code = Monocytes) 9.1 2.0-12.0 [facility] CenterVxykeaaDJULOBRQFA5032-59-41 19:27:00 Test Item Value Reference Range Interpretation Comments Segs (test code = Segs) 51.6 45.0-75.0 [facility] CenterBtoqsibUTRWHKHGHF8557-01-16 19:27:00 Test Item Value Reference Range Interpretation Comments Lymphocytes (test code = Lymphocytes) 35.8 20.0-40.0 [facility] CenterYlrrrpyHBUDYUPQAB1931-68-52 19:27:00 Test Item Value Reference Range Interpretation Comments MCV (test code = MCV) 84.9 80.0-98.0 [facility] CenterCabqfygBWFIZIECFY8703-92-12 19:27:00 Test Item Value Reference Range Interpretation Comments MPV (test code = MPV) 9.5 7.4-10.4 [facility] CenterReqmamsFOPMWWESOE6475-37-98 19:27:00 Test Item Value Reference Range Interpretation Comments Platelet (test code = Platelet) 298 133-450 [facility] CenterCpgonopJVXIWGVHOM5357-36-49 19:27:00 Test Item Value Reference Range Interpretation Comments RDW (test code = RDW) 14.6 11.5-14.5 [facility] CenterRxtbebuSEDWZXHSTH0623-26-38 19:27:00 Test Item Value Reference Range Interpretation Comments MCHC (test code = MCHC) 34.2 32.0-36.0 [facility] CenterZphicrkPPEQYIARQJ7975-57-21 19:27:00 Test Item Value Reference Range Interpretation Comments MCH (test code = MCH) 29.0 pg 27.0-31.0 [facility] CenterGyvezjhYNADHJLMRG2902-54-03 19:27:00 Test Item Value Reference Range Interpretation Comments Hct (test code = Hct) 35.8 36.0-48.0 [facility] CenterSvvhmkbYKKEVOLQAY1186-87-17 19:27:00 Test Item Value Reference Range Interpretation Comments RBC X 10x6 (test code = RBC X 10x6) 4.22 4.20-5.40 [facility] CenterRcfqsxaSKPNKXVMDO6306-00-45 19:27:00 Test Item Value Reference Range Interpretation Comments Hgb (test code = Hgb) 12.2 12.0-16.0 [facility] CenterLlyfwaaJBJIJBMHOJ7542-66-41 19:27:00 Test Item Value Reference Range Interpretation Comments WBC X 10x3 (test code = WBC X 10x3) 9.3 3.7-10.4 [facility] AND [id number] 19:27:00 Test Item Value Reference Range Interpretation Comments UA WBC (test code = UA WBC) 0-2 /HPF [facility] AND [id number] 19:27:00 Test Item Value Reference Range Interpretation Comments UA Sq Epi (test code = UA Sq Moderate /LPF Epi) [facility] AND [id number] 19:27:00 Test Item Value Reference Range Interpretation Comments UA Bacteria (test code = UA Occasional /HPF Bacteria) [facility] AND [id number] 19:27:00 Test Item Value Reference Range Interpretation Comments UA RBC (test code = 0-2 /HPF See_Comment [Automa evin message] The UA RBC) system which ge nerated this result tra nsmitted reference range : <=2. The reference range was not used to interpr et this result as kev l/abnormal. [facility] AND [id number] 19:27:00 Test Item Value Reference Range Interpretation Comments UA Leuk Est (test Negative (05/14/16 2:27 code = UA Leuk Est) PM) [facility] AND [id number] 19:27:00 Test Item Value Reference Range Interpretation Comments UA Blood (test code = Trace *ABN*(05/14/16 UA Blood) 2:27 PM) [facility] AND [id number] 19:27:00 Test Item Value Reference Range Interpretation Comments UA Bili (test code = Negative *NA*(05/14/16 UA Bili) 2:27 PM) [facility] AND [id number] 19:27:00 Test Item Value Reference Range Interpretation Comments UA Nitrite (test code Negative (05/14/16 2:27 = UA Nitrite) PM) [facility] AND [id number] 19:27:00 Test Item Value Reference Range Interpretation Comments UA Urobilinogen (test code = UA 0.2 0.1-1.0 Urobilinogen) [facility] AND [id number] 19:27:00 Test Item Value Reference Range Interpretation Comments UA Glucose (test code Negative (05/14/16 2:27 = UA Glucose) PM) [facility] AND [id number] 19:27:00 Test Item Value Reference Range Interpretation Comments UA Protein (test code Negative (05/14/16 2:27 = UA Protein) PM) [facility] AND [id number] 19:27:00 Test Item Value Reference Range Interpretation Comments UA Ketones (test code Negative *NA*(05/14/16 = UA Ketones) 2:27 PM) [facility] AND [id number] 19:27:00 Test Item Value Reference Range Interpretation Comments UA pH (test code = UA pH) 7.0 1 5.0-8.0 [facility] AND [id number] 19:27:00 Test Item Value Reference Range Interpretation Comments UA Spec Grav (test code = UA Spec 1.010 1 Grav) [facility] AND [id number] 19:27:00 Test Item Value Reference Range Interpretation Comments UA Color (test code = Yellow *NA*(05/14/16 UA Color) 2:27 PM) [facility] AND [id number] 19:27:00 Test Item Value Reference Range Interpretation Comments UA Turbidity (test code = Clear (05/14/16 2:27 UA Turbidity) PM) [facility] [id number] 19:27:00 Test Item Value Reference Range Interpretation Comments U Preg (test code = U Negative (05/14/16 2:27 Preg) PM) [facility] CenterUddlxxmTDPOWUASUD0728-06-34 10:52:00 Test Item Value Reference Range Interpretation Comments Platelet (test code = Platelet) 277 133-450 [facility] CenterNoxzmtqZOBSBCZOIO0205-86-98 10:52:00 Test Item Value Reference Range Interpretation Comments MCH (test code = MCH) 30.3 pg 27.0-31.0 [facility] CenterXfmxsicSYZJNRWKXI3459-34-20 10:52:00 Test Item Value Reference Range Interpretation Comments MCHC (test code = MCHC) 34.3 32.0-36.0 [facility] CenterPfwmmclKFIAYQPLIU6454-35-45 10:52:00 Test Item Value Reference Range Interpretation Comments RDW (test code = RDW) 15.3 11.5-14.5 [facility] CenterIxtzkhaZXODQMWVXK2351-15-73 10:52:00 Test Item Value Reference Range Interpretation Comments MPV (test code = MPV) 8.5 7.4-10.4 [facility] CenterCgjdagxYPYLWGCBZO5928-96-92 10:52:00 Test Item Value Reference Range Interpretation Comments Hct (test code = Hct) 31.4 36.0-48.0 [facility] CenterKdtnqzlZWRZEZPLBY4542-03-76 10:52:00 Test Item Value Reference Range Interpretation Comments RBC X 10x6 (test code = RBC X 10x6) 3.55 4.20-5.40 [facility] CenterDiqyahjLQYMPFDYUU0860-76-24 10:52:00 Test Item Value Reference Range Interpretation Comments Hgb (test code = Hgb) 10.8 12.0-16.0 [facility] CenterUthoqwfLFFQSMSZXF0319-81-06 10:52:00 Test Item Value Reference Range Interpretation Comments WBC X 10x3 (test code = WBC X 10x3) 10.3 3.7-10.4 [facility] CenterEjbcafdPGZOUAGCFK4914-51-15 10:52:00 Test Item Value Reference Range Interpretation Comments MCV (test code = MCV) 88.3 80.0-98.0 [facility]IqutvbySLZQMSMYQXVC6291-02-25 09:02:00 Test Item Value Reference Range Interpretation Comments AGAP (test code = AGAP) 10.5 10.0-20.0 [facility] HospitalMuukjwtEWKBISLSPZCL2020-70-39 09:02:00 Test Item Value Reference Range Interpretation Comments Chloride Lvl (test code = Chloride Lvl) 105 95-109 [facility] HospitalMumwtqkNKTMXJQYHOUM4197-19-48 09:02:00 Test Item Value Reference Range Interpretation Comments Calcium Lvl (test code = Calcium Lvl) 8.1 8.5-10.5 [facility] HospitalPcpmidkHQNPWGFPEVGI9731-75-87 09:02:00 Test Item Value Reference Range Interpretation Comments eGFR (test code = eGFR) 130 [facility] HospitalUdjbsmjKOYBCVDDUHXE2453-51-74 09:02:00 Test Item Value Reference Range Interpretation Comments Potassium Lvl (test code = Potassium 3.5 3.5-5.1 Lvl) [facility] HospitalFvvfydoXBAQJIXBVNWU5422-91-24 09:02:00 Test Item Value Reference Range Interpretation Comments CO2 (test code = CO2) 28 24-32 [facility] HospitalHcoksjcDXFXLFZZZXDP5008-01-55 09:02:00 Test Item Value Reference Range Interpretation Comments Sodium Lvl (test code = Sodium Lvl) 140 135-145 [facility] HospitalBohrikcRIMDKYAFITLA1816-51-30 09:02:00 Test Item Value Reference Range Interpretation Comments Glucose Lvl (test code = Glucose Lvl) 77 70-99 [facility] HospitalAkbxcvuHNRPWXVRQSNI8592-15-48 09:02:00 Test Item Value Reference Range Interpretation Comments BUN (test code = BUN) 7 7-22 [facility] HospitalFsgseidZISRAJWMALCI3718-40-62 09:02:00 Test Item Value Reference Range Interpretation Comments Creatinine Lvl (test code = Creatinine 0.40 0.50-1.40 Lvl) [facility] CenterBsithiwYDFYYVKIQW2649-89-25 09:02:00 Test Item Value Reference Range Interpretation Comments Monocytes # (test code 1.1 See_Comment [Aut omated message] The = Monocytes #) system which generated this result tra nsmitted reference range : <=0.8. The reference r jailene was not used to int erpret this result as normal/abnormal . [facility] CenterRboetdoXUTOQLBLVK4999-09-19 09:02:00 Test Item Value Reference Range Interpretation Comments Eosinophils # (test code 0.2 See_Comment [A utomated message] The = Eosinophils #) system whic h generated this result tra nsmitted reference range : <=0.5. The reference r jailene was not used to int erpret this result as normal/abnormal . [facility] CenterOukfxhtZOZWYBGWXB8794-34-05 09:02:00 Test Item Value Reference Range Interpretation Comments Lymphocytes (test code = Lymphocytes) 21.7 20.0-40.0 [facility] CenterIdsqljiVKDPTVQINW7082-08-67 09:02:00 Test Item Value Reference Range Interpretation Comments Segs (test code = Segs) 68.2 45.0-75.0 [facility] CenterDxvjphnNPUTIYRHBP4536-20-08 09:02:00 Test Item Value Reference Range Interpretation Comments Eosinophils (test code = 1.3 See_Comment [A utomated message] The Eosinophils) system which ge nerated this result tra nsmitted reference range : <=4.0. The reference r jailene was not used to int erpret this result as normal/abnormal . [facility] CenterDoxeecqVTHBQMXROC3510-25-10 09:02:00 Test Item Value Reference Range Interpretation Comments Monocytes (test code = Monocytes) 8.4 2.0-12.0 [facility] CenterMxtflijQBUELNZCUF6380-33-21 09:02:00 Test Item Value Reference Range Interpretation Comments Lymphocytes # (test code = Lymphocytes 2.8 1.0-5.5 #) [facility] CenterXotqxrrBSGRZSFAZZ1082-09-50 09:02:00 Test Item Value Reference Range Interpretation Comments Segs-Bands # (test code = Segs-Bands #) 8.7 1.5-8.1 [facility] CenterWckaiatLIGKYUPQQG8148-19-12 09:02:00 Test Item Value Reference Range Interpretation Comments Basophils (test code = 0.4 See_Comment [Aut omated message] The Basophils) system which ge nerated this result tra nsmitted reference range : <=1.0. The reference r jailene was not used to int erpret this result as normal/abnormal . [facility] CenterVnhnarxASEVBFJTDO3469-59-61 09:02:00 Test Item Value Reference Range Interpretation Comments MPV (test code = MPV) 8.6 7.4-10.4 [facility] CenterKcdoxtkSUHPYGANLV2114-48-56 09:02:00 Test Item Value Reference Range Interpretation Comments MCH (test code = MCH) 30.4 pg 27.0-31.0 [facility] CenterVbjuchjGCIYNOZTOH6028-80-95 09:02:00 Test Item Value Reference Range Interpretation Comments MCHC (test code = MCHC) 34.4 32.0-36.0 [facility] CenterIgweommSPYVVMYAHX7966-38-68 09:02:00 Test Item Value Reference Range Interpretation Comments RDW (test code = RDW) 15.3 11.5-14.5 [facility] CenterDresdoqBWVZZRUCRU8163-63-09 09:02:00 Test Item Value Reference Range Interpretation Comments Platelet (test code = Platelet) 255 133-450 [facility] CenterZwhmeohJFMQTFMRNM7758-10-54 09:02:00 Test Item Value Reference Range Interpretation Comments Hct (test code = Hct) 29.9 36.0-48.0 [facility] CenterElsyeexIJJMPCMCWQ6980-49-04 09:02:00 Test Item Value Reference Range Interpretation Comments MCV (test code = MCV) 88.5 80.0-98.0 [facility] CenterPdhhlueKDQDPWKKNB4916-55-18 09:02:00 Test Item Value Reference Range Interpretation Comments WBC X 10x3 (test code = WBC X 10x3) 12.8 3.7-10.4 [facility] CenterGsruwvyYEHPYOQRGR0803-50-90 09:02:00 Test Item Value Reference Range Interpretation Comments RBC X 10x6 (test code = RBC X 10x6) 3.38 4.20-5.40 [facility] CenterRaimbtbIZTDEPGJXR7835-72-40 09:02:00 Test Item Value Reference Range Interpretation Comments Hgb (test code = Hgb) 10.3 12.0-16.0 [facility] CenterZsjuosbNPYLAQTFZT2252-58-96 11:05:00 Test Item Value Reference Range Interpretation Comments Segs-Bands # (test code = Segs-Bands #) 11.0 1.5-8.1 [facility] CenterIcevnpeASVWTTEUCF8632-39-15 11:05:00 Test Item Value Reference Range Interpretation Comments Segs (test code = Segs) 64.1 45.0-75.0 [facility] CenterWyqnlxsMZRFHMBYFG1471-76-21 11:05:00 Test Item Value Reference Range Interpretation Comments Monocytes (test code = Monocytes) 8.0 2.0-12.0 [facility] CenterDeyrlvlRNBZHLPIBA9156-92-13 11:05:00 Test Item Value Reference Range Interpretation Comments Lymphocytes (test code = Lymphocytes) 26.2 20.0-40.0 [facility] CenterWgaixapNMXLFBZWAT3633-55-75 11:05:00 Test Item Value Reference Range Interpretation Comments Platelet (test code = Platelet) 250 133-450 [facility] CenterYaqgqltTWUBPUIGVM0602-01-81 11:05:00 Test Item Value Reference Range Interpretation Comments MPV (test code = MPV) 8.1 7.4-10.4 [facility] CenterSgrscxcYFKEDWKODQ3210-33-40 11:05:00 Test Item Value Reference Range Interpretation Comments MCHC (test code = MCHC) 33.6 32.0-36.0 [facility] CenterDmzruvbVMPLBFUWHG6658-37-19 11:05:00 Test Item Value Reference Range Interpretation Comments RDW (test code = RDW) 15.6 11.5-14.5 [facility] CenterYyieptlRNUEBTQEOR0231-36-11 11:05:00 Test Item Value Reference Range Interpretation Comments MCV (test code = MCV) 87.7 80.0-98.0 [facility] CenterNvjlbxcPEYILJSRCQ4567-14-88 11:05:00 Test Item Value Reference Range Interpretation Comments MCH (test code = MCH) 29.4 pg 27.0-31.0 [facility] CenterHxpxdpbCYCEVCPIJB9412-08-81 11:05:00 Test Item Value Reference Range Interpretation Comments WBC X 10x3 (test code = WBC X 10x3) 17.2 3.7-10.4 [facility] CenterDegigxsKBFYPPCEGE9226-57-56 11:05:00 Test Item Value Reference Range Interpretation Comments Hgb (test code = Hgb) 10.1 12.0-16.0 [facility] CenterOprcmzwFFSKRTWPNV7276-70-85 11:05:00 Test Item Value Reference Range Interpretation Comments RBC X 10x6 (test code = RBC X 10x6) 3.45 4.20-5.40 [facility] CenterRojowjvSYZWQGMFIO3459-92-28 11:05:00 Test Item Value Reference Range Interpretation Comments Hct (test code = Hct) 30.2 36.0-48.0 [facility] CenterSmcrhwwYHXLSMHTOT4884-70-37 11:05:00 Test Item Value Reference Range Interpretation Comments Monocytes # (test code 1.4 See_Comment [Aut omated message] The = Monocytes #) system which generated this result tra nsmitted reference range : <=0.8. The reference r jailene was not used to int erpret this result as normal/abnormal . [facility] CenterPhxgkwcESQLJPZVKQ6608-22-04 11:05:00 Test Item Value Reference Range Interpretation Comments Basophils # (test code 0.1 See_Comment [Aut omated message] The = Basophils #) system which generated this result tra nsmitted reference range : <=0.2. The reference r jailene was not used to int erpret this result as normal/abnormal . [facility] CenterEnfnbyoSZVHUKVJJB2931-74-09 11:05:00 Test Item Value Reference Range Interpretation Comments Eosinophils # (test code 0.2 See_Comment [A utomated message] The = Eosinophils #) system whic h generated this result tra nsmitted reference range : <=0.5. The reference r jailene was not used to int erpret this result as normal/abnormal . [facility] CenterNgjmjptZOJOYLOEXL0971-13-35 11:05:00 Test Item Value Reference Range Interpretation Comments Lymphocytes # (test code = Lymphocytes 4.5 1.0-5.5 #) [facility] CenterRokmphzNIVAMMFHMZ6335-18-10 11:05:00 Test Item Value Reference Range Interpretation Comments Eosinophils (test code = 1.4 See_Comment [A utomated message] The Eosinophils) system which ge nerated this result tra nsmitted reference range : <=4.0. The reference r jailene was not used to int erpret this result as normal/abnormal . [facility] CenterSczjbhrCGIXAJUMMQ0288-93-49 11:05:00 Test Item Value Reference Range Interpretation Comments Basophils (test code = 0.3 See_Comment [Aut omated message] The Basophils) system which ge nerated this result tra nsmitted reference range : <=1.0. The reference r jailene was not used to int erpret this result as normal/abnormal . [facility]2016-11-01 19:26:00 Test Item Value Reference Range Interpretation Comments Lipase Lvl (test code = Lipase Lvl) 140 31-393 [facility]2016-11-01 19:26:00 Test Item Value Reference Range Interpretation Comments A/G Ratio (test code = A/G Ratio) 0.8 0.7-1.6 [facility]2016-11-01 19:26:00 Test Item Value Reference Range Interpretation Comments B/C Ratio (test code = B/C Ratio) 19 6-25 [facility]2016-11-01 19:26:00 Test Item Value Reference Range Interpretation Comments Globulin (test code = Globulin) 4.2 2.7-4.2 [facility]2016-11-01 19:26:00 Test Item Value Reference Range Interpretation Comments AGAP (test code = AGAP) 9.7 10.0-20.0 [facility]2016-11-01 19:26:00 Test Item Value Reference Range Interpretation Comments eGFR (test code = eGFR) 111 [facility]2016-11-01 19:26:00 Test Item Value Reference Range Interpretation Comments Creatinine Lvl (test code = Creatinine 0.64 0.50-1.40 Lvl) [facility]2016-11-01 19:26:00 Test Item Value Reference Range Interpretation Comments Glucose Lvl (test code = Glucose Lvl) 108 70-99 [facility]2016-11-01 19:26:00 Test Item Value Reference Range Interpretation Comments Sodium Lvl (test code = Sodium Lvl) 140 135-145 [facility]2016-11-01 19:26:00 Test Item Value Reference Range Interpretation Comments BUN (test code = BUN) 12 7-22 [facility]2016-11-01 19:26:00 Test Item Value Reference Range Interpretation Comments Alk Phos (test code = Alk Phos) 132 39-136 [facility]2016-11-01 19:26:00 Test Item Value Reference Range Interpretation Comments Albumin Lvl (test code = Albumin Lvl) 3.4 3.5-5.0 [facility]2016-11-01 19:26:00 Test Item Value Reference Range Interpretation Comments ALANINE AMINOTRANSFERASE 144 See_Comment [A utomated message] (test code = ALANINE The sys tem which AMINOTRANSFERASE) generated this result transmitted ref erence range: <=65. Th e reference range was not used to int erpret this result as normal/abnormal . [facility]2016-11-01 19:26:00 Test Item Value Reference Range Interpretation Comments Chloride Lvl (test code = Chloride Lvl) 105 95-109 [facility]2016-11-01 19:26:00 Test Item Value Reference Range Interpretation Comments Potassium Lvl (test code = Potassium 3.7 3.5-5.1 Lvl) [facility]2016-11-01 19:26:00 Test Item Value Reference Range Interpretation Comments Bili Total (test code = Bili Total) 0.4 0.2-1.3 [facility]2016-11-01 19:26:00 Test Item Value Reference Range Interpretation Comments Calcium Lvl (test code = Calcium Lvl) 8.2 8.5-10.5 [place] [id number] 19:26:00 Test Item Value Reference Range Interpretation Comments CO2 (test code = CO2) 29 24-32 [facility]2016-11-01 19:26:00 Test Item Value Reference Range Interpretation Comments Total Protein (test code = Total 7.6 6.4-8.4 Protein) [place] [id number] 19:26:00 Test Item Value Reference Range Interpretation Comments ASPARTATE TRANSAMINASE 33 See_Comment [Aut omated message] (test code = ASPARTATE The s ystem which TRANSAMINASE) generated this result transmitted ref erence range: <=37. Th e reference range was not used to interpr et this result as normal/abnormal . [facility] CenterJppcgvaDHRELXXJVY4198-63-63 19:26:00 Test Item Value Reference Range Interpretation Comments Lymphocytes (test code = Lymphocytes) 8.1 20.0-40.0 [facility] CenterAprdfmcSTVAJSDZZH3107-24-72 19:26:00 Test Item Value Reference Range Interpretation Comments Monocytes (test code = Monocytes) 3.3 2.0-12.0 [facility] CenterGgaznagKPWWSRQHEI0348-78-00 19:26:00 Test Item Value Reference Range Interpretation Comments Basophils # (test code 0.1 See_Comment [Aut omated message] The = Basophils #) system which generated this result tra nsmitted reference range : <=0.2. The reference r jailene was not used to int erpret this result as normal/abnormal . [facility] CenterSlqowzgJPVAQBXSAT9259-48-22 19:26:00 Test Item Value Reference Range Interpretation Comments Monocytes # (test code 0.5 See_Comment [Aut omated message] The = Monocytes #) system which generated this result tra nsmitted reference range : <=0.8. The reference r jailene was not used to int erpret this result as normal/abnormal . [facility] CenterHwgzfvmTPCEILMZPP9130-83-18 19:26:00 Test Item Value Reference Range Interpretation Comments Lymphocytes # (test code = Lymphocytes 1.2 1.0-5.5 #) [facility] CenterFrpwsbpXNYEYLOKRK2305-47-35 19:26:00 Test Item Value Reference Range Interpretation Comments Basophils (test code = 0.5 See_Comment [Aut omated message] The Basophils) system which ge nerated this result tra nsmitted reference range : <=1.0. The reference r jailene was not used to int erpret this result as normal/abnormal . [facility] CenterUtpieajBBFSTINOFK8142-15-26 19:26:00 Test Item Value Reference Range Interpretation Comments Eosinophils (test code = 0.2 See_Comment [A utomated message] The Eosinophils) system which ge nerated this result tra nsmitted reference range : <=4.0. The reference r jailene was not used to int erpret this result as normal/abnormal . [facility] CenterLayqaxpZUGDVPFIRD0737-35-89 19:26:00 Test Item Value Reference Range Interpretation Comments Segs-Bands # (test code = Segs-Bands #) 12.7 1.5-8.1 [facility] CenterFmgxqtiZXFNIOZPCJ3475-34-70 19:26:00 Test Item Value Reference Range Interpretation Comments Segs (test code = Segs) 87.9 45.0-75.0 [facility]2016-11-01 19:26:00 Test Item Value Reference Range Interpretation Comments UA Bacteria (test code = UA Occasional /HPF Bacteria) [facility] AND [id number] 19:26:00 Test Item Value Reference Range Interpretation Comments UA RBC (test code = 6-10 /HPF See_Comment [Automa evin message] The UA RBC) system which ge nerated this result tra nsmitted reference range : <=2. The reference range was not used to interpr et this result as normal/abnormal . [facility]2016-11-01 19:26:00 Test Item Value Reference Range Interpretation Comments UA Color (test code = Yellow *NA*(12/18/15 UA Color) 2:26 PM) [facility] AND [id number] 19:26:00 Test Item Value Reference Range Interpretation Comments UA Turbidity (test code = Clear (12/18/15 2:26 UA Turbidity) PM) [facility] AND [id number] 19:26:00 Test Item Value Reference Range Interpretation Comments UA Glucose (test code Negative (12/18/15 2:26 = UA Glucose) PM) [facility] AND [id number] 19:26:00 Test Item Value Reference Range Interpretation Comments UA Protein (test code Negative (12/18/15 2:26 = UA Protein) PM) [facility] AND [id number] 19:26:00 Test Item Value Reference Range Interpretation Comments UA pH (test code = UA pH) 6.0 1 5.0-8.0 [facility] AND [id number] 19:26:00 Test Item Value Reference Range Interpretation Comments UA Spec Grav (test code = UA Spec 1.015 1 Grav) [facility] AND [id number] 19:26:00 Test Item Value Reference Range Interpretation Comments UA Bili (test code = Negative *NA*(12/18/15 UA Bili) 2:26 PM) [facility] AND [id number] 19:26:00 Test Item Value Reference Range Interpretation Comments UA Nitrite (test code Negative (12/18/15 2:26 = UA Nitrite) PM) [facility] AND [id number] 19:26:00 Test Item Value Reference Range Interpretation Comments UA Ketones (test code Negative *NA*(12/18/15 = UA Ketones) 2:26 PM) [facility] AND [id number] 19:26:00 Test Item Value Reference Range Interpretation Comments UA Urobilinogen (test code = UA 2.0 0.1-1.0 Urobilinogen) [facility] AND [id number] 19:26:00 Test Item Value Reference Range Interpretation Comments UA Blood (test code = Trace *ABN*(12/18/15 UA Blood) 2:26 PM) [facility] AND [id number] 19:26:00 Test Item Value Reference Range Interpretation Comments UA Sq Epi (test code = UA Sq Epi) Many /LPF [facility] AND [id number] 19:26:00 Test Item Value Reference Range Interpretation Comments UA Leuk Est (test Negative (12/18/15 2:26 code = UA Leuk Est) PM) [facility] AND [id number] 19:26:00 Test Item Value Reference Range Interpretation Comments UA WBC (test code = UA WBC) 0-2 /HPF [facility]2016-08-05 10:31:00 Test Item Value Reference Range Interpretation Comments eGFR (test code = eGFR) 92 [facility]2016-08-05 10:31:00 Test Item Value Reference Range Interpretation Comments Calcium Lvl (test code = Calcium Lvl) 8.8 8.5-10.5 [facility]2016-08-05 10:31:00 Test Item Value Reference Range Interpretation Comments Total Protein (test code = Total 8.4 6.4-8.4 Protein) [facility]2016-08-05 10:31:00 Test Item Value Reference Range Interpretation Comments Bili Total (test code = Bili Total) 0.5 0.2-1.3 [facility]2016-08-05 10:31:00 Test Item Value Reference Range Interpretation Comments ASPARTATE TRANSAMINASE 15 See_Comment [Aut omated message] (test code = ASPARTATE The s ystem which TRANSAMINASE) generated this result transmitted ref erence range: <=37. Th e reference range was not used to interpr et this result as normal/abnormal . [facility]2016-08-05 10:31:00 Test Item Value Reference Range Interpretation Comments Potassium Lvl (test code = Potassium 3.3 3.5-5.1 Lvl) [facility]2016-08-05 10:31:00 Test Item Value Reference Range Interpretation Comments CO2 (test code = CO2) 29 24-32 [facility]2016-08-05 10:31:00 Test Item Value Reference Range Interpretation Comments Sodium Lvl (test code = Sodium Lvl) 136 135-145 [facility]2016-08-05 10:31:00 Test Item Value Reference Range Interpretation Comments Creatinine Lvl (test code = Creatinine 0.81 0.50-1.40 Lvl) [facility]iiAT[id number] 10:31:00 Test Item Value Reference Range Interpretation Comments Chloride Lvl (test code = Chloride Lvl) 101 95-109 [facility]2016-08-05 10:31:00 Test Item Value Reference Range Interpretation Comments ALANINE AMINOTRANSFERASE 26 See_Comment [A utomated message] (test code = ALANINE The sys tem which AMINOTRANSFERASE) generated this result transmitted ref erence range: <=65. Th e reference range was not used to int erpret this result as normal/abnormal . [facility]oKiiATRIUM HEALTH [id number] 10:31:00 Test Item Value Reference Range Interpretation Comments Alk Phos (test code = Alk Phos) 119 39-136 [facility]KiiATRIUM HEALTH [id number] 10:31:00 Test Item Value Reference Range Interpretation Comments Albumin Lvl (test code = Albumin Lvl) 3.9 3.5-5.0 [facility]KiiATRIUM HEALTH CLEVELANDRGKCQ8612-09-82 10:31:00 Test Item Value Reference Range Interpretation Comments BUN (test code = BUN) 4 7-22 [facility]KiiATRIUM HEALTH [id number] 10:31:00 Test Item Value Reference Range Interpretation Comments Glucose Lvl (test code = Glucose Lvl) 103 70-99 [facility]KiiATRI[facility] HEALTH CLEVELANDYKKRL9612-78-84 10:31:00 Test Item Value Reference Range Interpretation Comments Globulin (test code = Globulin) 4.5 2.7-4.2 [facility]KiiATRIUM HEALTH CLEVELANDDLAUC3147-18-02 10:31:00 Test Item Value Reference Range Interpretation Comments B/C Ratio (test code = B/C Ratio) 5 6-25 [facility]KiiATRI[facility] HEALTH CLEVELANDZIUJC9816-10-23 10:31:00 Test Item Value Reference Range Interpretation Comments A/G Ratio (test code = A/G Ratio) 0.9 0.7-1.6 [facility]KiiATRI[facility] HEALTH CLEVELANDDECJB4185-12-57 10:31:00 Test Item Value Reference Range Interpretation Comments AGAP (test code = AGAP) 9.3 10.0-20.0 [facility]KiiATRI[facility] HEALTH CLEVELANDTEWVW5090-60-75 10:31:00 Test Item Value Reference Range Interpretation Comments Lipase Lvl (test code = Lipase Lvl) 128 73-393 [facility]KpaffyySUZRVJGNYBDTW0032-33-31 10:31:00 Test Item Value Reference Range Interpretation Comments S Preg (test code = S Negative *NA*(09/21/15 Preg) 5:31 AM) [facility] CenterRfskkgtXIMVZCTHRM2680-82-99 10:31:00 Test Item Value Reference Range Interpretation Comments Basophils (test code = 0.5 See_Comment [Aut omated message] The Basophils) system which ge nerated this result tra nsmitted reference range : <=1.0. The reference r jailene was not used to int erpret this result as normal/abnormal . [facility] CenterMbkxxsxKOMUHWIGCH0404-61-61 10:31:00 Test Item Value Reference Range Interpretation Comments Segs-Bands # (test code = Segs-Bands #) 7.5 1.5-8.1 [facility] CenterLkcqiabSQDKPQVAPO9384-52-37 10:31:00 Test Item Value Reference Range Interpretation Comments Eosinophils # (test code 0.2 See_Comment [A utomated message] The = Eosinophils #) system whic h generated this result tra nsmitted reference range : <=0.5. The reference r jailene was not used to int erpret this result as normal/abnormal . [facility] CenterRydiknxAUKRYNQFVX1383-28-18 10:31:00 Test Item Value Reference Range Interpretation Comments Lymphocytes # (test code = Lymphocytes 4.2 1.0-5.5 #) [facility] CenterQonkomqHNVLMZFINR5396-32-60 10:31:00 Test Item Value Reference Range Interpretation Comments Basophils # (test code 0.1 See_Comment [Aut omated message] The = Basophils #) system which generated this result tra nsmitted reference range : <=0.2. The reference r jailene was not used to int erpret this result as normal/abnormal . [facility] CenterXtfxndyEZDAFLMCQR6126-61-11 10:31:00 Test Item Value Reference Range Interpretation Comments Monocytes # (test code 1.2 See_Comment [Aut omated message] The = Monocytes #) system which generated this result tra nsmitted reference range : <=0.8. The reference r jailene was not used to int erpret this result as normal/abnormal . [facility] CenterYayhtyqPKQJVLWRYT3985-59-56 10:31:00 Test Item Value Reference Range Interpretation Comments Eosinophils (test code = 1.2 See_Comment [A utomated message] The Eosinophils) system which ge nerated this result tra nsmitted reference range : <=4.0. The reference r jailene was not used to int erpret this result as normal/abnormal . [facility] CenterZqgoygvNHVHOKDEUP7895-82-98 10:31:00 Test Item Value Reference Range Interpretation Comments Segs (test code = Segs) 57.2 45.0-75.0 [facility] CenterRfyechmDZAAUEQCRQ6607-25-38 10:31:00 Test Item Value Reference Range Interpretation Comments Monocytes (test code = Monocytes) 9.1 2.0-12.0 [facility] CenterXbyvnjqDVZCWESLMC6488-02-32 10:31:00 Test Item Value Reference Range Interpretation Comments Lymphocytes (test code = Lymphocytes) 32.0 20.0-40.0 [facility] CenterDzvthvkUOWRSRQNRV5742-30-04 10:31:00 Test Item Value Reference Range Interpretation Comments MPV (test code = MPV) 10.0 7.4-10.4 [facility] CenterCdxrlaoLWRHAMPKUT7925-31-99 10:31:00 Test Item Value Reference Range Interpretation Comments Platelet (test code = Platelet) 271 133-450 [facility] CenterCaezokyHNAOPVIMRJ5825-46-04 10:31:00 Test Item Value Reference Range Interpretation Comments RDW (test code = RDW) 13.1 11.5-14.5 [facility] CenterLcykvefFCIWEIHQZK8770-48-73 10:31:00 Test Item Value Reference Range Interpretation Comments MCHC (test code = MCHC) 32.9 32.0-36.0 [facility] CenterQjuiajsDRLCIVJWQL9457-35-65 10:31:00 Test Item Value Reference Range Interpretation Comments Hct (test code = Hct) 37.8 36.0-48.0 [facility] CenterKnmcxahLYIMBZTAIT2271-89-45 10:31:00 Test Item Value Reference Range Interpretation Comments Hgb (test code = Hgb) 12.4 12.0-16.0 [facility] CenterGnunpqgAHPTTPAULB2800-97-33 10:31:00 Test Item Value Reference Range Interpretation Comments RBC X 10x6 (test code = RBC X 10x6) 4.27 4.20-5.40 [facility] CenterRkswcejLEPMZYPXOR4967-66-12 10:31:00 Test Item Value Reference Range Interpretation Comments WBC X 10x3 (test code = WBC X 10x3) 13.1 3.7-10.4 [facility] CenterTnofgmdACGVTSCULG7015-63-94 10:31:00 Test Item Value Reference Range Interpretation Comments MCH (test code = MCH) 29.0 pg 27.0-31.0 [facility] CenterOggrnfnBNJNZEFWRS7553-95-12 10:31:00 Test Item Value Reference Range Interpretation Comments MCV (test code = MCV) 88.4 80.0-98.0 [facility] AND [id number] 10:31:00 Test Item Value Reference Range Interpretation Comments UA Bacteria (test code = UA Occasional /HPF Bacteria) [facility] AND [id number] 10:31:00 Test Item Value Reference Range Interpretation Comments UA RBC (test code = 0-2 /HPF See_Comment [Automa evin message] The UA RBC) system which ge nerated this result tra nsmitted reference range : <=2. The reference range was not used to interpr et this result as kev l/abnormal. [facility] AND [id number] 10:31:00 Test Item Value Reference Range Interpretation Comments UA WBC (test code = UA WBC) 0-2 /HPF [facility] AND [id number] 10:31:00 Test Item Value Reference Range Interpretation Comments UA pH (test code = UA pH) 6.5 1 5.0-8.0 [facility] AND [id number] 10:31:00 Test Item Value Reference Range Interpretation Comments UA Protein (test code Negative (09/21/15 5:31 = UA Protein) AM) [facility] AND [id number] 10:31:00 Test Item Value Reference Range Interpretation Comments UA Glucose (test code Negative (09/21/15 5:31 = UA Glucose) AM) [facility] AND [id number] 10:31:00 Test Item Value Reference Range Interpretation Comments UA Spec Grav (test code = UA Spec 1.015 1 Grav) [facility] AND [id number] 10:31:00 Test Item Value Reference Range Interpretation Comments UA Urobilinogen (test code = UA 0.2 0.1-1.0 Urobilinogen) [facility] AND [id number] 10:31:00 Test Item Value Reference Range Interpretation Comments UA Nitrite (test code Negative (09/21/15 5:31 = UA Nitrite) AM) [facility] AND [id number] 10:31:00 Test Item Value Reference Range Interpretation Comments UA Ketones (test code Negative *NA*(09/21/15 = UA Ketones) 5:31 AM) [facility] [id number] 10:31:00 Test Item Value Reference Range Interpretation Comments UA Leuk Est (test Negative (09/21/15 5:31 code = UA Leuk Est) AM) [facility] AND [id number] 10:31:00 Test Item Value Reference Range Interpretation Comments UA Sq Epi (test code = UA Sq Occasional /LPF Epi) [facility] AND [id number] 10:31:00 Test Item Value Reference Range Interpretation Comments UA Bili (test code = Negative *NA*(09/21/15 UA Bili) 5:31 AM) [facility] AND [id number] 10:31:00 Test Item Value Reference Range Interpretation Comments UA Blood (test code = Trace *ABN*(09/21/15 UA Blood) 5:31 AM) [facility] AND [id number] 10:31:00 Test Item Value Reference Range Interpretation Comments UA Color (test code = Yellow *NA*(09/21/15 5:31 UA Color) AM) [facility] AND [id number] 10:31:00 Test Item Value Reference Range Interpretation Comments UA Turbidity (test code = Clear (09/21/15 5:31 UA Turbidity) AM) [facility] [id number] 09:29:00 Test Item Value Reference Range Interpretation Comments Amylase Lvl (test code = Amylase Lvl) 30 25-115 [facility] [employer] [id number] 09:29:00 Test Item Value Reference Range Interpretation Comments Lipase Lvl (test code = Lipase Lvl) 94 73-393 [facility]IrsfklqNICSBABVUVJI5317-43-22 09:29:00 Test Item Value Reference Range Interpretation Comments AGAP (test code = AGAP) 10.6 10.0-20.0 [facility] HospitalHjvvxgiEASDGQIDZPQF2211-92-63 09:29:00 Test Item Value Reference Range Interpretation Comments Globulin (test code = Globulin) 4.0 2.0-4.0 [facility] HospitalGmprxgiANZOQRXMTYKV2780-57-62 09:29:00 Test Item Value Reference Range Interpretation Comments A/G Ratio (test code = A/G Ratio) 1.0 0.7-1.6 [facility] HospitalNcrmquvSDGPHJJZRPEV3205-77-02 09:29:00 Test Item Value Reference Range Interpretation Comments B/C Ratio (test code = B/C Ratio) 14 6-25 [facility] HospitalArvnxanCQYPEJOBYCGC6390-00-09 09:29:00 Test Item Value Reference Range Interpretation Comments eGFR (test code = eGFR) 99 [facility] HospitalPmrtsgcWNSWMRDNGCTX9434-11-31 09:29:00 Test Item Value Reference Range Interpretation Comments ALT (test code = ALT) 28 See_Comment [Auto mated message] The system which ge nerated this result transmit evin reference range : <=65. The reference range was not used to interpr et this result as kev l/abnormal. [facility] HospitalMdjmaezWOLCCCVMVRXC3234-23-87 09:29:00 Test Item Value Reference Range Interpretation Comments AST (test code = AST) 16 See_Comment [Auto mated message] The system which ge nerated this result transmit evin reference range : <=37. The reference range was not used to interpr et this result as kev l/abnormal. [facility] HospitalEyffwyoNFXYTBOKUGWW2515-21-65 09:29:00 Test Item Value Reference Range Interpretation Comments Alk Phos (test code = Alk Phos) 113 39-136 [facility] HospitalUbmjbuqXDYFEIVAOJQC8591-01-82 09:29:00 Test Item Value Reference Range Interpretation Comments Albumin Lvl (test code = Albumin Lvl) 3.8 3.5-5.0 [facility] HospitalTfulipkKZHJGUFOBRTS3202-16-56 09:29:00 Test Item Value Reference Range Interpretation Comments Total Protein (test code = Total 7.8 6.4-8.4 Protein) [facility] HospitalJhzgkquSCSTUTPSWZYD7252-98-63 09:29:00 Test Item Value Reference Range Interpretation Comments Calcium Lvl (test code = Calcium Lvl) 8.5 8.5-10.5 [facility] HospitalWoyrwmfMXNCQMZAYVMW9470-49-42 09:29:00 Test Item Value Reference Range Interpretation Comments CO2 (test code = CO2) 28 24-32 [facility] HospitalFkqkznwEMFADNZCHACM3203-36-67 09:29:00 Test Item Value Reference Range Interpretation Comments Chloride Lvl (test code = Chloride Lvl) 105 95-109 [facility] HospitalYeqppbvRIGKFKIRRBPT7495-14-49 09:29:00 Test Item Value Reference Range Interpretation Comments Sodium Lvl (test code = Sodium Lvl) 140 135-145 [facility]DdxygrnYJXCVGCIUSPQ0204-08-84 09:29:00 Test Item Value Reference Range Interpretation Comments Potassium Lvl (test code = Potassium 3.6 3.5-5.1 Lvl) [facility] HospitalWqcgfrgQOUQJOOXJKLL8743-11-52 09:29:00 Test Item Value Reference Range Interpretation Comments BUN (test code = BUN) 11 7-22 [facility] HospitalFmgmnjdGMVEQYKWWLJK1988-75-57 09:29:00 Test Item Value Reference Range Interpretation Comments Creatinine Lvl (test code = Creatinine 0.76 0.50-1.40 Lvl) [facility] HospitalFcxhjrpTRISLXTENBTH5673-23-94 09:29:00 Test Item Value Reference Range Interpretation Comments Glucose Lvl (test code = Glucose Lvl) 107 70-99 [facility] HospitalNxoivinSXXBQKSCIBQR5011-82-63 09:29:00 Test Item Value Reference Range Interpretation Comments Bili Total (test code = Bili Total) 0.5 0.2-1.3 [facility] CenterGeimmnoLYCWQNPNVS3802-96-23 09:29:00 Test Item Value Reference Range Interpretation Comments Monocytes (test code = Monocytes) 6.6 2.0-12.0 [facility] CenterSxksvwoZKGZRAJNVL8688-29-21 09:29:00 Test Item Value Reference Range Interpretation Comments Lymphocytes (test code = Lymphocytes) 25.4 20.0-40.0 [facility] CenterQlpoiaoATNQHTBZUK6874-17-34 09:29:00 Test Item Value Reference Range Interpretation Comments Eosinophils (test code = 0.9 See_Comment [A utomated message] The Eosinophils) system which ge nerated this result tra nsmitted reference range : <=4.0. The reference r jailene was not used to int erpret this result as normal/abnormal . [facility] CenterRlgjmbgYWUXEEYRYT5913-01-02 09:29:00 Test Item Value Reference Range Interpretation Comments Segs-Bands # (test code = Segs-Bands #) 6.5 1.5-8.1 [facility] CenterRfgsclmWSMTQJWJUL4045-07-54 09:29:00 Test Item Value Reference Range Interpretation Comments Basophils (test code = 0.4 See_Comment [Aut omated message] The Basophils) system which ge nerated this result tra nsmitted reference range : <=1.0. The reference r jailene was not used to int erpret this result as normal/abnormal . [facility] CenterEymiczlLEVNHPSLUM8253-93-84 09:29:00 Test Item Value Reference Range Interpretation Comments Eosinophils # (test code 0.1 See_Comment [A utomated message] The = Eosinophils #) system whic h generated this result tra nsmitted reference range : <=0.5. The reference r jailene was not used to int erpret this result as normal/abnormal . [facility] CenterVikxtyfNQYPXOMJFV9943-08-52 09:29:00 Test Item Value Reference Range Interpretation Comments Monocytes # (test code 0.6 See_Comment [Aut omated message] The = Monocytes #) system which generated this result tra nsmitted reference range : <=0.8. The reference r jailene was not used to int erpret this result as normal/abnormal . [facility] CenterPaclqhbULAULZCCXR8167-80-24 09:29:00 Test Item Value Reference Range Interpretation Comments Lymphocytes # (test code = Lymphocytes 2.5 1.0-5.5 #) [facility] CenterDvqndmtSYFUASYJVH8717-36-44 09:29:00 Test Item Value Reference Range Interpretation Comments Segs (test code = Segs) 66.7 45.0-75.0 [facility] CenterDmcgowcZFKJMMXZMZ7358-72-20 09:29:00 Test Item Value Reference Range Interpretation Comments MCV (test code = MCV) 89.1 80.0-98.0 [facility] CenterBjohckqPNSJPSLLXV5904-23-13 09:29:00 Test Item Value Reference Range Interpretation Comments Platelet (test code = Platelet) 325 133-450 [facility] CenterYlhuvvpLRNOZBRGZV2768-56-49 09:29:00 Test Item Value Reference Range Interpretation Comments RBC (test code = RBC) 3.88 4.20-5.40 [facility] CenterMbydxyiEDGPPCRJQR3104-25-17 09:29:00 Test Item Value Reference Range Interpretation Comments Hgb (test code = Hgb) 11.3 12.0-16.0 [facility] CenterBiyqfgzJBBTEUQCZT2647-48-76 09:29:00 Test Item Value Reference Range Interpretation Comments MPV (test code = MPV) 9.3 7.4-10.4 [facility] CenterXeodoizJXVHSXQMKH6361-69-02 09:29:00 Test Item Value Reference Range Interpretation Comments MCHC (test code = MCHC) 32.7 32.0-36.0 [facility] CenterVwjwemrOVWUICFSPI9949-21-82 09:29:00 Test Item Value Reference Range Interpretation Comments RDW (test code = RDW) 13.8 11.5-14.5 [facility] CenterRevezkgKYSUPNQQTH8365-76-18 09:29:00 Test Item Value Reference Range Interpretation Comments MCH (test code = MCH) 29.2 pg 27.0-31.0 [facility] CenterUgvbvbxUTGFUPBPMK8102-95-49 09:29:00 Test Item Value Reference Range Interpretation Comments Hct (test code = Hct) 34.5 36.0-48.0 [facility] CenterYhlquiwTYPXOZENDE8647-28-92 09:29:00 Test Item Value Reference Range Interpretation Comments WBC (test code = WBC) 9.7 3.7-10.4 [facility] AND [id number] 09:29:00 Test Item Value Reference Range Interpretation Comments UA Protein (test code = Trace *ABN*(08/13/15 UA Protein) 4:29 AM) [facility] AND [id number] 09:29:00 Test Item Value Reference Range Interpretation Comments UA Spec Grav (test code = UA Spec 1.020 1 Grav) [facility] AND [id number] 09:29:00 Test Item Value Reference Range Interpretation Comments UA Color (test code = Yellow *NA*(08/13/15 UA Color) 4:29 AM) [facility] AND [id number] 09:29:00 Test Item Value Reference Range Interpretation Comments UA Turbidity (test code = Clear (08/13/15 4:29 UA Turbidity) AM) [facility] AND [id number] 09:29:00 Test Item Value Reference Range Interpretation Comments UA pH (test code = UA pH) 7.0 1 5.0-8.0 [facility] AND [id number] 09:29:00 Test Item Value Reference Range Interpretation Comments UA Glucose (test code Negative (08/13/15 4:29 = UA Glucose) AM) [facility] AND [id number] 09:29:00 Test Item Value Reference Range Interpretation Comments UA Bili (test code = Small *ABN*(08/13/15 UA Bili) 4:29 AM) [facility] AND [id number] 09:29:00 Test Item Value Reference Range Interpretation Comments UA Ketones (test code Negative *NA*(08/13/15 = UA Ketones) 4:29 AM) [facility] AND [id number] 09:29:00 Test Item Value Reference Range Interpretation Comments UA Urobilinogen (test code = UA 4.0 0.1-1.0 Urobilinogen) [facility] AND [id number] 09:29:00 Test Item Value Reference Range Interpretation Comments UA Blood (test code = Trace *ABN*(08/13/15 UA Blood) 4:29 AM) [facility] AND [id number] 09:29:00 Test Item Value Reference Range Interpretation Comments UA Leuk Est (test Negative (08/13/15 4:29 code = UA Leuk Est) AM) [facility] AND [id number] 09:29:00 Test Item Value Reference Range Interpretation Comments UA Nitrite (test code Negative (08/13/15 4:29 = UA Nitrite) AM) [facility] AND [id number] 09:29:00 Test Item Value Reference Range Interpretation Comments UA Mucus (test code = UA Mucus) Few /LPF [facility] AND [id number] 09:29:00 Test Item Value Reference Range Interpretation Comments UA Bacteria (test code = UA Occasional /HPF Bacteria) [facility] AND [id number] 09:29:00 Test Item Value Reference Range Interpretation Comments UA RBC (test code = 6-10 /HPF See_Comment [Automa evin message] The UA RBC) system which ge nerated this result tra nsmitted reference range : <=2. The reference range was not used to interpr et this result as normal/abnormal . [facility] AND [id number] 09:29:00 Test Item Value Reference Range Interpretation Comments UA WBC (test code = 0-2 /HPF See_Comment [Automa evin message] The UA WBC) system which ge nerated this result tra nsmitted reference range : <=5. The reference range was not used to interpr et this result as ekv l/abnormal. [facility] AND [id number] 09:29:00 Test Item Value Reference Range Interpretation Comments UA Sq Epi (test code = UA Sq Moderate /LPF Epi) [facility] [id number] 09:29:00 Test Item Value Reference Range Interpretation Comments U Preg (test code = U Negative (08/13/15 4:29 Preg) AM) [facility]2016-06-24 22:42:00 Test Item Value Reference Range Interpretation Comments eGFR (test code = eGFR) 80 [facility]2016-06-24 22:42:00 Test Item Value Reference Range Interpretation Comments Glucose Lvl (test code = Glucose Lvl) 118 70-99 [facility]2016-06-24 22:42:00 Test Item Value Reference Range Interpretation Comments Alk Phos (test code = Alk Phos) 134 39-136 [facility]2016-06-24 22:42:00 Test Item Value Reference Range Interpretation Comments BUN (test code = BUN) 7 7-22 [facility]2016-06-24 22:42:00 Test Item Value Reference Range Interpretation Comments Sodium Lvl (test code = Sodium Lvl) 137 135-145 [facility]2016-06-24 22:42:00 Test Item Value Reference Range Interpretation Comments Creatinine Lvl (test code = Creatinine 0.90 0.50-1.40 Lvl) [facility]2016-06-24 22:42:00 Test Item Value Reference Range Interpretation Comments Potassium Lvl (test code = Potassium 4.0 3.5-5.1 Lvl) [facility]2016-06-24 22:42:00 Test Item Value Reference Range Interpretation Comments Chloride Lvl (test code = Chloride Lvl) 104 95-109 [facility]2016-06-24 22:42:00 Test Item Value Reference Range Interpretation Comments Bili Total (test code = Bili Total) 0.3 0.2-1.3 [facility]2016-06-24 22:42:00 Test Item Value Reference Range Interpretation Comments Calcium Lvl (test code = Calcium Lvl) 8.9 8.5-10.5 [facility]2016-06-24 22:42:00 Test Item Value Reference Range Interpretation Comments CO2 (test code = CO2) 26 24-32 [facility]KiiAT[id number] 22:42:00 Test Item Value Reference Range Interpretation Comments ASPARTATE TRANSAMINASE 25 See_Comment [Aut omated message] (test code = ASPARTATE The s ystem which TRANSAMINASE) generated this result transmitted ref erence range: <=37. Th e reference range was not used to interpr et this result as normal/abnormal . [facility]2016-06-24 22:42:00 Test Item Value Reference Range Interpretation Comments Total Protein (test code = Total 8.6 6.4-8.4 Protein) [facility]2016-06-24 22:42:00 Test Item Value Reference Range Interpretation Comments ALANINE AMINOTRANSFERASE 42 See_Comment [A utomated message] (test code = ALANINE The sys tem which AMINOTRANSFERASE) generated this result transmitted ref erence range: <=65. Th e reference range was not used to int erpret this result as normal/abnormal . [facility]2016-06-24 22:42:00 Test Item Value Reference Range Interpretation Comments Albumin Lvl (test code = Albumin Lvl) 4.0 3.5-5.0 [facility]2016-06-24 22:42:00 Test Item Value Reference Range Interpretation Comments AGAP (test code = AGAP) 11.0 10.0-20.0 [facility]2016-06-24 22:42:00 Test Item Value Reference Range Interpretation Comments Globulin (test code = Globulin) 4.6 2.0-4.0 [facility]2016-06-24 22:42:00 Test Item Value Reference Range Interpretation Comments B/C Ratio (test code = B/C Ratio) 8 6-25 [facility]KiiATRI[facility] HEALTH [id number] 22:42:00 Test Item Value Reference Range Interpretation Comments A/G Ratio (test code = A/G Ratio) 0.9 0.7-1.6 [facility]2016-06-24 22:42:00 Test Item Value Reference Range Interpretation Comments Lipase Lvl (test code = Lipase Lvl) 95 73-393 [facility] CenterUcxwsjyIRWXKHKOSN0860-69-22 22:42:00 Test Item Value Reference Range Interpretation Comments Hct (test code = Hct) 37.5 36.0-48.0 [facility] CenterQvkwwkkODKLYVDUII6094-28-14 22:42:00 Test Item Value Reference Range Interpretation Comments MCV (test code = MCV) 89.0 80.0-98.0 [facility] CenterCrsfglmLGVORGHKQZ3087-26-38 22:42:00 Test Item Value Reference Range Interpretation Comments MCH (test code = MCH) 29.5 pg 27.0-31.0 [facility] CenterZryjppjQGDUQMWMYP7093-83-84 22:42:00 Test Item Value Reference Range Interpretation Comments MCHC (test code = MCHC) 33.1 32.0-36.0 [facility] CenterUhmdcdsITTVFQOJGV6016-34-45 22:42:00 Test Item Value Reference Range Interpretation Comments RDW (test code = RDW) 14.2 11.5-14.5 [facility] CenterGcojwwpLCAHHQTOIR8863-19-13 22:42:00 Test Item Value Reference Range Interpretation Comments MPV (test code = MPV) 9.3 7.4-10.4 [facility] CenterOqzywkdWMOQRYWUVX5065-31-18 22:42:00 Test Item Value Reference Range Interpretation Comments Platelet (test code = Platelet) 365 133-450 [facility] CenterYeofvpvBAHHSAJCKR6096-69-81 22:42:00 Test Item Value Reference Range Interpretation Comments WBC X 10x3 (test code = WBC X 10x3) 8.6 3.7-10.4 [facility] CenterRnploycZYFEUPFKWM4823-22-27 22:42:00 Test Item Value Reference Range Interpretation Comments Hgb (test code = Hgb) 12.4 12.0-16.0 [facility] CenterLrywutxBWEXGDBQLK0999-88-18 22:42:00 Test Item Value Reference Range Interpretation Comments RBC X 10x6 (test code = RBC X 10x6) 4.22 4.20-5.40 [facility] CenterEfxyjdgOASNHTXYAO0361-39-77 22:42:00 Test Item Value Reference Range Interpretation Comments Basophils (test code = 0.6 See_Comment [Aut omated message] The Basophils) system which ge nerated this result tra nsmitted reference range : <=1.0. The reference r jailene was not used to int erpret this result as normal/abnormal . [facility] CenterInddahmMSRGHDPSOC5320-43-14 22:42:00 Test Item Value Reference Range Interpretation Comments Lymphocytes # (test code = Lymphocytes 3.0 1.0-5.5 #) [facility] CenterPvwwwdmCHOCRUQWRS7034-97-98 22:42:00 Test Item Value Reference Range Interpretation Comments Eosinophils (test code = 1.3 See_Comment [A utomated message] The Eosinophils) system which ge nerated this result tra nsmitted reference range : <=4.0. The reference r jailene was not used to int erpret this result as normal/abnormal . [facility] CenterBlntmkdYOAFNFWGWC1483-68-57 22:42:00 Test Item Value Reference Range Interpretation Comments Segs-Bands # (test code = Segs-Bands #) 4.9 1.5-8.1 [facility] CenterNniwwtgTTZYBCOTRV5527-14-04 22:42:00 Test Item Value Reference Range Interpretation Comments Monocytes # (test code 0.6 See_Comment [Aut omated message] The = Monocytes #) system which generated this result tra nsmitted reference range : <=0.8. The reference r jailene was not used to int erpret this result as normal/abnormal . [facility] CenterOisapamDKBAVBOHVW7968-56-29 22:42:00 Test Item Value Reference Range Interpretation Comments Basophils # (test code 0.1 See_Comment [Aut omated message] The = Basophils #) system which generated this result tra nsmitted reference range : <=0.2. The reference r jailene was not used to int erpret this result as normal/abnormal . [facility] CenterMxtxlshDQWDBHKIDC0920-93-23 22:42:00 Test Item Value Reference Range Interpretation Comments Eosinophils # (test code 0.1 See_Comment [A utomated message] The = Eosinophils #) system [facility] h generated this result tra nsmitted reference range : <=0.5. The reference r jailene was not used to int erpret this result as normal/abnormal . [facility] CenterUiwecjaFUFPNGNKOS7043-90-71 22:42:00 Test Item Value Reference Range Interpretation Comments Segs (test code = Segs) 56.3 45.0-75.0 [facility] CenterCuniwviAPZOUVZAHN7505-78-05 22:42:00 Test Item Value Reference Range Interpretation Comments Lymphocytes (test code = Lymphocytes) 34.5 20.0-40.0 [facility] CenterBfgtlbaFRTZJIMBRK0922-92-82 22:42:00 Test Item Value Reference Range Interpretation Comments Monocytes (test code = Monocytes) 7.3 2.0-12.0 [facility]2016-06-24 22:42:00 Test Item Value Reference Range Interpretation Comments UA Bili (test code = Negative *NA*(08/10/15 UA Bili) 5:42 PM) [facility] AND [id number] 22:42:00 Test Item Value Reference Range Interpretation Comments UA Blood (test code = Negative (08/10/15 5:42 UA Blood) PM) [facility] AND [id number] 22:42:00 Test Item Value Reference Range Interpretation Comments UA Nitrite (test code Negative (08/10/15 5:42 = UA Nitrite) PM) [facility] AND [id number] 22:42:00 Test Item Value Reference Range Interpretation Comments UA Urobilinogen (test code = UA 1.0 0.1-1.0 Urobilinogen) [facility] AND [id number] 22:42:00 Test Item Value Reference Range Interpretation Comments UA Leuk Est (test Negative (08/10/15 5:42 code = UA Leuk Est) PM) [facility] AND [id number] 22:42:00 Test Item Value Reference Range Interpretation Comments UA Ketones (test code = UA Negative mg/dL Ketones) [facility] AND [id number] 22:42:00 Test Item Value Reference Range Interpretation Comments UA Glucose (test code = UA Negative mg/dL Glucose) [facility] AND [id number] 22:42:00 Test Item Value Reference Range Interpretation Comments UA Turbidity (test code = Clear (08/10/15 5:42 UA Turbidity) PM) [facility] AND [id number] 22:42:00 Test Item Value Reference Range Interpretation Comments UA Color (test code = Yellow *NA*(08/10/15 UA Color) 5:42 PM) [facility] AND [id number] 22:42:00 Test Item Value Reference Range Interpretation Comments UA Protein (test code = UA Negative mg/dL Protein) [facility] AND [id number] 22:42:00 Test Item Value Reference Range Interpretation Comments UA pH (test code = UA pH) 8.5 1 5.0-8.0 [facility] AND [id number] 22:42:00 Test Item Value Reference Range Interpretation Comments UA Spec Grav (test code = UA Spec 1.015 1 Grav) [facility] AND [id number] 22:42:00 Test Item Value Reference Range Interpretation Comments UA Sq Epi (test code = UA Sq Occasional /LPF Epi) [facility] AND [id number] 22:42:00 Test Item Value Reference Range Interpretation Comments UA WBC (test code = UA WBC) 0-2 /HPF [facility] AND [id number] 22:42:00 Test Item Value Reference Range Interpretation Comments UA Amorph Della (test code = Occasional /HPF UA Amorph Della) [facility] AND [id number] 22:42:00 Test Item Value Reference Range Interpretation Comments UA Bacteria (test code = UA Occasional /HPF Bacteria) [facility] AND [id number] 22:42:00 Test Item Value Reference Range Interpretation Comments UA Mucus (test code = UA Mucus) Few /LPF [facility] C[id number] 09:41:00 Test Item Value Reference Range Interpretation Comments Monocytes # (test code 0.9 See_Comment [Aut omated message] The = Monocytes #) system which generated this result tra nsmitted reference range : <=0.8. The reference r jailene was not used to int erpret this result as normal/abnormal . [facility] CenterKbsxyszOETQNXMEZZ4309-09-85 09:41:00 Test Item Value Reference Range Interpretation Comments Lymphocytes # (test code = Lymphocytes 3.7 1.0-5.5 #) [facility] CenterUfntsvgNVGHCMWXLP4070-28-26 09:41:00 Test Item Value Reference Range Interpretation Comments Eosinophils # (test code 0.2 See_Comment [A utomated message] The = Eosinophils #) system whic h generated this result tra nsmitted reference range : <=0.5. The reference r jailene was not used to int erpret this result as normal/abnormal . [facility] CenterVtvqetvGBLCUTXZLM6250-12-83 09:41:00 Test Item Value Reference Range Interpretation Comments Segs-Bands # (test code = Segs-Bands #) 6.5 1.5-8.1 [facility] Cent[id number] 09:41:00 Test Item Value Reference Range Interpretation Comments Basophils # (test code 0.1 See_Comment [Aut omated message] The = Basophils #) system which generated this result tra nsmitted reference range : <=0.2. The reference r jailene was not used to int erpret this result as normal/abnormal . [facility] CenterZwcvzutTDDHOCKPUX0070-07-85 09:41:00 Test Item Value Reference Range Interpretation Comments Lymphocytes (test code = Lymphocytes) 32.6 20.0-40.0 [facility] CenterMlrbmxxDMWTZULRHM5780-53-80 09:41:00 Test Item Value Reference Range Interpretation Comments Segs (test code = Segs) 57.5 45.0-75.0 [facility] CenterPkotcubCGEONELRVZ3472-57-38 09:41:00 Test Item Value Reference Range Interpretation Comments Monocytes (test code = Monocytes) 8.0 2.0-12.0 [facility] CenterMfnqbujOKNZINLUHR2852-06-00 09:41:00 Test Item Value Reference Range Interpretation Comments Basophils (test code = 0.5 See_Comment [Aut omated message] The Basophils) system which ge nerated this result tra nsmitted reference range : <=1.0. The reference r jailene was not used to int erpret this result as normal/abnormal . [facility] CenterOgjljuyHLDIFTTMAV2498-67-28 09:41:00 Test Item Value Reference Range Interpretation Comments Eosinophils (test code = 1.4 See_Comment [A utomated message] The Eosinophils) system which ge nerated this result tra nsmitted reference range : <=4.0. The reference r jailene was not used to int erpret this result as normal/abnormal . [facility] CenterDcymabtTQRTBWDVQW5903-93-26 09:41:00 Test Item Value Reference Range Interpretation Comments MCH (test code = MCH) 29.2 pg 27.0-31.0 [facility] [id number] 09:41:00 Test Item Value Reference Range Interpretation Comments MCV (test code = MCV) 89.3 80.0-98.0 [facility] CenterBmvjmjfYXUZWFTUGZ9571-72-27 09:41:00 Test Item Value Reference Range Interpretation Comments Hgb (test code = Hgb) 10.3 12.0-16.0 [facility] CenterJawfyqkNTLHRIVBAR6661-66-39 09:41:00 Test Item Value Reference Range Interpretation Comments Hct (test code = Hct) 31.5 36.0-48.0 [facility] CenterUdzzsnjOCIUGLIXMW1188-06-37 09:41:00 Test Item Value Reference Range Interpretation Comments RBC X 10x6 (test code = RBC X 10x6) 3.53 4.20-5.40 [facility] CenterGydaxwoEXBDPMYWJR3068-06-13 09:41:00 Test Item Value Reference Range Interpretation Comments WBC X 10x3 (test code = WBC X 10x3) 11.3 3.7-10.4 [facility] CenterKfzgogmUTSQRCRHBK9551-52-41 09:41:00 Test Item Value Reference Range Interpretation Comments Platelet (test code = Platelet) 271 133-450 [facility] Cent[id number] 09:41:00 Test Item Value Reference Range Interpretation Comments MPV (test code = MPV) 9.2 7.4-10.4 [facility] CenterYnwskhfAPYANNHODU5935-43-30 09:41:00 Test Item Value Reference Range Interpretation Comments RDW (test code = RDW) 14.1 11.5-14.5 [facility] CenterCcsxyyrNROLGVCFFA7796-35-74 09:41:00 Test Item Value Reference Range Interpretation Comments MCHC (test code = MCHC) 32.7 32.0-36.0 [facility] AND [id number] 22:56:00 Test Item Value Reference Range Interpretation Comments UA Urobilinogen (test code = UA 0.2 0.1-1.0 Urobilinogen) [facility] AND [id number] 22:56:00 Test Item Value Reference Range Interpretation Comments UA Protein (test code Negative (07/29/15 5:56 = UA Protein) PM) [facility] AND [id number] 22:56:00 Test Item Value Reference Range Interpretation Comments UA Ketones (test code Negative *NA*(07/29/15 = UA Ketones) 5:56 PM) [facility] AND [id number] 22:56:00 Test Item Value Reference Range Interpretation Comments UA Bili (test code = Negative *NA*(07/29/15 UA Bili) 5:56 PM) [facility] AND [id number] 22:56:00 Test Item Value Reference Range Interpretation Comments UA Blood (test code = Negative (07/29/15 5:56 UA Blood) PM) [facility] AND [id number] 22:56:00 Test Item Value Reference Range Interpretation Comments UA Glucose (test code Negative (07/29/15 5:56 = UA Glucose) PM) [facility] AND [id number] 22:56:00 Test Item Value Reference Range Interpretation Comments UA pH (test code = UA pH) 6.5 1 5.0-8.0 [facility] AND [id number] 22:56:00 Test Item Value Reference Range Interpretation Comments UA Turbidity (test code = Clear (07/29/15 5:56 UA Turbidity) PM) [facility] AND [id number] 22:56:00 Test Item Value Reference Range Interpretation Comments UA Spec Grav (test code *NA*(07/29/15 5:56 PM) = UA Spec Grav) [facility] AND [id number] 22:56:00 Test Item Value Reference Range Interpretation Comments UA Color (test code = Yellow *NA*(07/29/15 UA Color) 5:56 PM) [facility] AND [id number] 22:56:00 Test Item Value Reference Range Interpretation Comments UA Nitrite (test code Negative (07/29/15 5:56 = UA Nitrite) PM) [facility] AND [id number] 22:56:00 Test Item Value Reference Range Interpretation Comments UA Sq Epi (test code = UA Sq Epi) Few /LPF [facility] AND [id number] 22:56:00 Test Item Value Reference Range Interpretation Comments UA Leuk Est (test Negative (07/29/15 5:56 code = UA Leuk Est) PM) [facility] AND [id number] 22:56:00 Test Item Value Reference Range Interpretation Comments UA WBC (test code = UA WBC) 0-2 /HPF [facility] AND [id number] 22:56:00 Test Item Value Reference Range Interpretation Comments UA RBC (test code = 0-2 /HPF See_Comment [Automa evin message] The UA RBC) system which ge nerated this result tra nsmitted reference range : <=2. The reference range was not used to interpr et this result as kev l/abnormal. [facility] AND [id number] 22:56:00 Test Item Value Reference Range Interpretation Comments UA Bacteria (test code = UA Occasional /HPF Bacteria) [facility] [id number] 22:48:00 Test Item Value Reference Range Interpretation Comments Lipase Lvl (test code = Lipase Lvl) 134 73-393 [facility]PvtjabsNWDTAEYILIHK4073-06-41 22:48:00 Test Item Value Reference Range Interpretation Comments AGAP (test code = AGAP) 9.6 10.0-20.0 [facility] HospitalEextkvzTSHWDITNBZTZ2440-12-64 22:48:00 Test Item Value Reference Range Interpretation Comments Globulin (test code = Globulin) 4.4 2.0-4.0 [facility] Hos[id number] 22:48:00 Test Item Value Reference Range Interpretation Comments B/C Ratio (test code = B/C Ratio) 8 6-25 [facility] HospitalDoxyanfFHBYQBJOTJCR1242-54-77 22:48:00 Test Item Value Reference Range Interpretation Comments A/G Ratio (test code = A/G Ratio) 0.8 0.7-1.6 [facility] HospitalKcqamspDPQOXVXJQOPK0265-45-60 22:48:00 Test Item Value Reference Range Interpretation Comments Bili Total (test code = Bili Total) 0.3 0.2-1.3 [facility] HospitalFqbgktqIJXCMMVHKJZX6784-89-69 22:48:00 Test Item Value Reference Range Interpretation Comments Calcium Lvl (test code = Calcium Lvl) 8.3 8.5-10.5 [facility] HospitalQjxevcuBVNLZBZOBFYN0524-07-73 22:48:00 Test Item Value Reference Range Interpretation Comments CO2 (test code = CO2) 28 24-32 [facility] HospitalMszgignBGGEJJUOOWAH6837-14-36 22:48:00 Test Item Value Reference Range Interpretation Comments ASPARTATE TRANSAMINASE 21 See_Comment [Aut omated message] (test code = ASPARTATE The s ystem which TRANSAMINASE) generated this result transmitted ref erence range: <=37. Th e reference range was not used to interpr et this result as normal/abnormal . [facility] HospitalNytfgubZWYNSZQIJSIF6506-99-08 22:48:00 Test Item Value Reference Range Interpretation Comments Total Protein (test code = Total 8.0 6.4-8.4 Protein) [facility] HospitalJnyqnwzMHZHRDJUSZHE9708-72-91 22:48:00 Test Item Value Reference Range Interpretation Comments eGFR (test code = eGFR) 93 [facility] HospitalSivnugbDJTAWAJFXOJR4351-45-78 22:48:00 Test Item Value Reference Range Interpretation Comments Glucose Lvl (test code = Glucose Lvl) 94 70-99 [facility] HospitalYmwpqmcOXWVCFWPNBHH5940-23-64 22:48:00 Test Item Value Reference Range Interpretation Comments Alk Phos (test code = Alk Phos) 122 39-136 [facility] HospitalXcgwjejSGDYTUGALBCZ9284-93-44 22:48:00 Test Item Value Reference Range Interpretation Comments Potassium Lvl (test code = Potassium 3.6 3.5-5.1 Lvl) [facility] HospitalUugsqkxXVUDBJXLDEBJ4110-89-01 22:48:00 Test Item Value Reference Range Interpretation Comments Sodium Lvl (test code = Sodium Lvl) 137 135-145 [facility] HospitalQhfwbnzHBMPKCGNSROL6129-15-00 22:48:00 Test Item Value Reference Range Interpretation Comments Creatinine Lvl (test code = Creatinine 0.80 0.50-1.40 Lvl) [facility] Hospital[id number] 22:48:00 Test Item Value Reference Range Interpretation Comments BUN (test code = BUN) 6 7-22 [facility] HospitalEephjniALPAYFVUQEWD1869-35-08 22:48:00 Test Item Value Reference Range Interpretation Comments Chloride Lvl (test code = Chloride Lvl) 103 95-109 [facility] HospitalMktkzyhDIQEQPSMDOKY1133-28-09 22:48:00 Test Item Value Reference Range Interpretation Comments ALANINE AMINOTRANSFERASE 33 See_Comment [A utomated message] (test code = ALANINE The sys tem which AMINOTRANSFERASE) generated this result transmitted ref erence range: <=65. Th e reference range was not used to int erpret this result as normal/abnormal . [facility] HospitalGlxwxikUYLTQEDACZUS6865-51-98 22:48:00 Test Item Value Reference Range Interpretation Comments Albumin Lvl (test code = Albumin Lvl) 3.6 3.5-5.0 [facility] CenterUyehyprRVVCHXQFKH2731-24-69 22:48:00 Test Item Value Reference Range Interpretation Comments Basophils # (test code 0.1 See_Comment [Aut omated message] The = Basophils #) system which generated this result tra nsmitted reference range : <=0.2. The reference r jailene was not used to int erpret this result as normal/abnormal . [facility] Cent[id number] 22:48:00 Test Item Value Reference Range Interpretation Comments Eosinophils # (test code 0.2 See_Comment [A utomated message] The = Eosinophils #) system [facility] h generated this result tra nsmitted reference range : <=0.5. The reference r jailene was not used to int erpret this result as normal/abnormal . [facility] CenterGmetrkqNKYKJMQRTF3438-04-72 22:48:00 Test Item Value Reference Range Interpretation Comments Monocytes # (test code 0.7 See_Comment [Aut omated message] The = Monocytes #) system which generated this result tra nsmitted reference range : <=0.8. The reference r jailene was not used to int erpret this result as normal/abnormal . [facility] CenterVgqohjbRKXIWENVPB8412-93-53 22:48:00 Test Item Value Reference Range Interpretation Comments Lymphocytes # (test code = Lymphocytes 3.0 1.0-5.5 #) [facility] CenterTxrzvbaVUNPQAYQEP4005-55-57 22:48:00 Test Item Value Reference Range Interpretation Comments Segs-Bands # (test code = Segs-Bands #) 7.0 1.5-8.1 [facility] CenterAgsvckwWERTTVHZHY2474-92-24 22:48:00 Test Item Value Reference Range Interpretation Comments Basophils (test code = 0.5 See_Comment [Aut omated message] The Basophils) system which ge nerated this result tra nsmitted reference range : <=1.0. The reference r jailene was not used to int erpret this result as normal/abnormal . [facility] CenterHzdrswhSLTYXCYSPO2121-48-41 22:48:00 Test Item Value Reference Range Interpretation Comments Eosinophils (test code = 1.5 See_Comment [A utomated message] The Eosinophils) system which ge nerated this result tra nsmitted reference range : <=4.0. The reference r jailene was not used to int erpret this result as normal/abnormal . [facility] CenterNgxfzueKVDZDZCJQZ2226-32-49 22:48:00 Test Item Value Reference Range Interpretation Comments Monocytes (test code = Monocytes) 6.4 2.0-12.0 [facility] CenterKyswfusLJIJYCUCXQ2454-52-19 22:48:00 Test Item Value Reference Range Interpretation Comments Lymphocytes (test code = Lymphocytes) 27.6 20.0-40.0 [facility] CenterOqslzeoKZGUUPNJMV4758-87-70 22:48:00 Test Item Value Reference Range Interpretation Comments Segs (test code = Segs) 64.0 45.0-75.0 [facility] CenterNwblcuqXKDPDXNWAZ6046-98-58 22:48:00 Test Item Value Reference Range Interpretation Comments WBC X 10x3 (test code = WBC X 10x3) 10.9 3.7-10.4 [facility] CenterOfsnjhtLTQXJMPOTT3143-72-97 22:48:00 Test Item Value Reference Range Interpretation Comments MCV (test code = MCV) 88.9 80.0-98.0 [facility] CenterIlbxhcvDOSMDJAFRI2864-30-15 22:48:00 Test Item Value Reference Range Interpretation Comments Hct (test code = Hct) 36.6 36.0-48.0 [facility] CenterXjsrffiOOZXPRDAGQ4682-76-58 22:48:00 Test Item Value Reference Range Interpretation Comments Hgb (test code = Hgb) 12.0 12.0-16.0 [facility] CenterIcdwstbIYHQMCJYJQ8033-68-07 22:48:00 Test Item Value Reference Range Interpretation Comments RBC X 10x6 (test code = RBC X 10x6) 4.12 4.20-5.40 [facility] CenterGxnvtywZFPHLIOTOB2525-44-16 22:48:00 Test Item Value Reference Range Interpretation Comments MPV (test code = MPV) 9.4 7.4-10.4 [facility] CenterAaagjyeHIWQHFLFKS7423-41-84 22:48:00 Test Item Value Reference Range Interpretation Comments Platelet (test code = Platelet) 307 133-450 [facility] CenterXbikqgpEJTWIAEIYQ2354-39-31 22:48:00 Test Item Value Reference Range Interpretation Comments RDW (test code = RDW) 14.2 11.5-14.5 [facility] CenterZupizivJSVOXHETSC7415-06-08 22:48:00 Test Item Value Reference Range Interpretation Comments MCHC (test code = MCHC) 32.8 32.0-36.0 [facility] CenterRbjclyxMFPPMMQCSB6279-09-46 22:48:00 Test Item Value Reference Range Interpretation Comments MCH (test code = MCH) 29.2 pg 27.0-31.0 [facility]2016-06-11 15:29:00 Test Item Value Reference Range Interpretation Comments A/G Ratio (test code = A/G Ratio) 0.8 0.7-1.6 [facility]2016-06-11 15:29:00 Test Item Value Reference Range Interpretation Comments AGAP (test code = AGAP) 8.6 10.0-20.0 [facility]2016-06-11 15:29:00 Test Item Value Reference Range Interpretation Comments B/C Ratio (test code = B/C Ratio) 9 6-25 [facility]2016-06-11 15:29:00 Test Item Value Reference Range Interpretation Comments Globulin (test code = Globulin) 4.3 2.0-4.0 [facility]2016-06-11 15:29:00 Test Item Value Reference Range Interpretation Comments Bili Total (test code = Bili Total) 0.3 0.2-1.3 [facility]2016-06-11 15:29:00 Test Item Value Reference Range Interpretation Comments eGFR (test code = eGFR) 92 [facility]2016-06-11 15:29:00 Test Item Value Reference Range Interpretation Comments Total Protein (test code = Total 7.9 6.4-8.4 Protein) [facility]2016-06-11 15:29:00 Test Item Value Reference Range Interpretation Comments ASPARTATE TRANSAMINASE 12 See_Comment [Aut omated message] (test code = ASPARTATE The s ystem which TRANSAMINASE) generated this result transmitted ref erence range: <=37. Th e reference range was not used to interpr et this result as normal/abnormal . [facility]2016-06-11 15:29:00 Test Item Value Reference Range Interpretation Comments Chloride Lvl (test code = Chloride Lvl) 103 95-109 [facility]2016-06-11 15:29:00 Test Item Value Reference Range Interpretation Comments CO2 (test code = CO2) 28 24-32 [facility]2016-06-11 15:29:00 Test Item Value Reference Range Interpretation Comments Calcium Lvl (test code = Calcium Lvl) 8.5 8.5-10.5 [facility]2016-06-11 15:29:00 Test Item Value Reference Range Interpretation Comments Alk Phos (test code = Alk Phos) 116 39-136 [facility]2016-06-11 15:29:00 Test Item Value Reference Range Interpretation Comments Glucose Lvl (test code = Glucose Lvl) 106 70-99 [facility]2016-06-11 15:29:00 Test Item Value Reference Range Interpretation Comments BUN (test code = BUN) 7 7-22 [facility]2016-06-11 15:29:00 Test Item Value Reference Range Interpretation Comments Creatinine Lvl (test code = Creatinine 0.81 0.50-1.40 Lvl) [facility]2016-06-11 15:29:00 Test Item Value Reference Range Interpretation Comments Sodium Lvl (test code = Sodium Lvl) 136 135-145 [facility]2016-06-11 15:29:00 Test Item Value Reference Range Interpretation Comments Potassium Lvl (test code = Potassium 3.6 3.5-5.1 Lvl) [facility]2016-06-11 15:29:00 Test Item Value Reference Range Interpretation Comments Albumin Lvl (test code = Albumin Lvl) 3.6 3.5-5.0 [facility]2016-06-11 15:29:00 Test Item Value Reference Range Interpretation Comments ALANINE AMINOTRANSFERASE 24 See_Comment [A utomated message] (test code = ALANINE The sys tem which AMINOTRANSFERASE) generated this result transmitted ref erence range: <=65. Th e reference range was not used to int erpret this result as normal/abnormal . [facility]2016-06-11 15:29:00 Test Item Value Reference Range Interpretation Comments Lipase Lvl (test code = Lipase Lvl) 123 73-393 [facility] CenterRmeupozIGPCPABPLM5625-20-51 15:29:00 Test Item Value Reference Range Interpretation Comments MPV (test code = MPV) 9.5 7.4-10.4 [facility] CenterQprjmhfYUKRGHZPMU4182-80-76 15:29:00 Test Item Value Reference Range Interpretation Comments RDW (test code = RDW) 14.3 11.5-14.5 [facility] CenterTplpgpfPRBTBMXQRO6293-43-24 15:29:00 Test Item Value Reference Range Interpretation Comments Platelet (test code = Platelet) 300 133-450 [facility] CenterEvncmltGBXIHRHGZH5676-77-64 15:29:00 Test Item Value Reference Range Interpretation Comments MCHC (test code = MCHC) 33.2 32.0-36.0 [facility] CenterOymbhoxJMIHSBPSGX7689-70-09 15:29:00 Test Item Value Reference Range Interpretation Comments MCH (test code = MCH) 29.0 pg 27.0-31.0 [facility] CenterHuyawwlRUTNKHWMGY0815-39-21 15:29:00 Test Item Value Reference Range Interpretation Comments MCV (test code = MCV) 87.4 80.0-98.0 [facility] CenterTqdhwqrLRQCZWPOAM6889-80-75 15:29:00 Test Item Value Reference Range Interpretation Comments Hgb (test code = Hgb) 11.4 12.0-16.0 [facility] CenterVtxtwpgOLPSZGVJIF0661-91-33 15:29:00 Test Item Value Reference Range Interpretation Comments Hct (test code = Hct) 34.5 36.0-48.0 [facility] CenterVtrwlidXAVMJTPIKP2714-43-50 15:29:00 Test Item Value Reference Range Interpretation Comments RBC X 10x6 (test code = RBC X 10x6) 3.95 4.20-5.40 [facility] CenterMxhvryxXUUCHPIRFX3159-97-17 15:29:00 Test Item Value Reference Range Interpretation Comments WBC X 10x3 (test code = WBC X 10x3) 11.8 3.7-10.4 [facility] CenterNhdkeozHETQKISCVI1869-77-92 15:29:00 Test Item Value Reference Range Interpretation Comments Basophils (test code = 0.3 See_Comment [Aut omated message] The Basophils) system which ge nerated this result tra nsmitted reference range : <=1.0. The reference r jailene was not used to int erpret this result as normal/abnormal . [facility] CenterTosvascLVVRVAASRJ1843-06-06 15:29:00 Test Item Value Reference Range Interpretation Comments Eosinophils (test code = 1.6 See_Comment [A utomated message] The Eosinophils) system which ge nerated this result tra nsmitted reference range : <=4.0. The reference r jailene was not used to int erpret this result as normal/abnormal . [facility] CenterWyaawxgBAMYYKWLSA1835-30-51 15:29:00 Test Item Value Reference Range Interpretation Comments Monocytes (test code = Monocytes) 8.0 2.0-12.0 [facility] CenterYemqswfRTPBSSLOEL1074-40-73 15:29:00 Test Item Value Reference Range Interpretation Comments Segs (test code = Segs) 66.1 45.0-75.0 [facility] CenterGjsfzqeQOSBZAYRHT8538-18-23 15:29:00 Test Item Value Reference Range Interpretation Comments Lymphocytes (test code = Lymphocytes) 24.0 20.0-40.0 [facility] CenterRzfunbiRKGRUASOEZ6767-86-65 15:29:00 Test Item Value Reference Range Interpretation Comments Eosinophils # (test code 0.2 See_Comment [A utomated message] The = Eosinophils #) system whic h generated this result tra nsmitted reference range : <=0.5. The reference r jailene was not used to int erpret this result as normal/abnormal . [facility] CenterSrhfqjxZSCZUVDJLG2406-19-87 15:29:00 Test Item Value Reference Range Interpretation Comments Monocytes # (test code 0.9 See_Comment [Aut omated message] The = Monocytes #) system which generated this result tra nsmitted reference range : <=0.8. The reference r jailene was not used to int erpret this result as normal/abnormal . [facility] CenterInpfxywNLASRQTKUS8435-37-86 15:29:00 Test Item Value Reference Range Interpretation Comments Lymphocytes # (test code = Lymphocytes 2.8 1.0-5.5 #) [facility] CenterAjksihrOIMYZYWDNY9987-30-89 15:29:00 Test Item Value Reference Range Interpretation Comments Segs-Bands # (test code = Segs-Bands #) 7.8 1.5-8.1 [facility] AND [id number] 15:29:00 Test Item Value Reference Range Interpretation Comments UA Mucus (test code = UA Mucus) Rare /LPF [facility] AND [id number] 15:29:00 Test Item Value Reference Range Interpretation Comments UA Bacteria (test code = UA Few /HPF Bacteria) [facility] AND [id number] 15:29:00 Test Item Value Reference Range Interpretation Comments UA WBC (test code = UA WBC) 0-2 /HPF [facility] AND [id number] 15:29:00 Test Item Value Reference Range Interpretation Comments UA RBC (test code = 3-5 /HPF See_Comment [Automa evin message] The UA RBC) system which ge nerated this result tra nsmitted reference range : <=2. The reference range was not used to interpr et this result as kev l/abnormal. [facility] AND [id number] 15:29:00 Test Item Value Reference Range Interpretation Comments UA Sq Epi (test code = UA Sq Epi) Few /LPF [facility] AND [id number] 15:29:00 Test Item Value Reference Range Interpretation Comments UA Urobilinogen (test code = UA 0.2 0.1-1.0 Urobilinogen) [facility] AND [id number] 15:29:00 Test Item Value Reference Range Interpretation Comments UA Nitrite (test code Negative (07/28/15 10:29 = UA Nitrite) AM) [facility] AND [id number] 15:29:00 Test Item Value Reference Range Interpretation Comments UA Leuk Est (test Negative (07/28/15 10:29 code = UA Leuk Est) AM) [facility] AND [id number] 15:29:00 Test Item Value Reference Range Interpretation Comments UA Blood (test code = Trace *ABN*(07/28/15 UA Blood) 10:29 AM) [facility] AND [id number] 15:29:00 Test Item Value Reference Range Interpretation Comments UA Ketones (test code Negative *NA*(07/28/15 = UA Ketones) 10:29 AM) [facility] AND [id number] 15:29:00 Test Item Value Reference Range Interpretation Comments UA Bili (test code = Negative *NA*(07/28/15 UA Bili) 10:29 AM) [facility] AND [id number] 15:29:00 Test Item Value Reference Range Interpretation Comments UA Protein (test code Negative (07/28/15 10:29 = UA Protein) AM) [facility] AND [id number] 15:29:00 Test Item Value Reference Range Interpretation Comments UA Glucose (test code Negative (07/28/15 10:29 = UA Glucose) AM) [facility] AND [id number] 15:29:00 Test Item Value Reference Range Interpretation Comments UA pH (test code = UA pH) 8.0 1 5.0-8.0 [facility] AND [id number] 15:29:00 Test Item Value Reference Range Interpretation Comments UA Color (test code = Yellow *NA*(07/28/15 UA Color) 10:29 AM) [facility] AND [id number] 15:29:00 Test Item Value Reference Range Interpretation Comments UA Turbidity (test code = Clear (07/28/15 10:29 UA Turbidity) AM) [facility] [id number] 15:29:00 Test Item Value Reference Range Interpretation Comments UA Spec Grav (test code = UA Spec 1.010 1 Grav) [facility]GsetkrpTOXRYTCQNQ3617-27-01 21:40:00 Test Item Value Reference Range Interpretation Comments UA Urobilinogen (test code = UA <=1.0 mg/dL 0.1-1.0 Urobilinogen) [facility] HospitalUjkbzteJDNDHLUUIR5361-14-09 21:40:00 Test Item Value Reference Range Interpretation Comments UA Protein (test code = UA Negative mg/dL N Protein) [facility] Hospit[id number] 21:40:00 Test Item Value Reference Range Interpretation Comments UA Glucose (test code = UA Negative mg/dL Glucose) [facility] HospitalDfgpgdwYYYXOEEMRK0973-20-27 21:40:00 Test Item Value Reference Range Interpretation Comments UA Ketones (test code = UA Negative mg/dL Ketones) [facility] HospitalPhzslrqDYJLRHORAB6343-77-93 21:40:00 Test Item Value Reference Range Interpretation Comments UA Sq Epi (test code = UA Sq Epi) Many /LPF [facility] HospitalLrmgbbhOUXAFBYPPQ0451-75-64 21:40:00 Test Item Value Reference Range Interpretation Comments UA Blood (test code = Moderate A UA Blood) *ABN*(02/21/2013 15:40:00) [facility] HospitalBvjayftBENFHGNTVB9778-87-16 21:40:00 Test Item Value Reference Range Interpretation Comments UA Nitrite (test code Negative (02/21/2013 N = UA Nitrite) 15:40:00) [facility] HospitalIetoqzrTNJJXJSOCR7634-90-04 21:40:00 Test Item Value Reference Range Interpretation Comments UA Leuk Est (test Negative (02/21/2013 N code = UA Leuk Est) 15:40:00) [facility] HospitalOwlljusRHUUHZJBMB4528-11-54 21:40:00 Test Item Value Reference Range Interpretation Comments UA Bili (test code = Negative *NA*(02/21/2013 UA Bili) 15:40:00) [facility] HospitalGqcsfirKUVUYKWPUA1783-31-55 21:40:00 Test Item Value Reference Range Interpretation Comments UA RBC (test code = 1 See_Comment N [Automa evin message] The UA RBC) system which ge nerated this result transmit evin reference range : <=2. The reference range was not used to interpr et this result as kev l/abnormal. [facility]sktaotYYANCTWQTW1408-15-79 21:40:00 Test Item Value Reference Range Interpretation Comments UA Bacteria (test code = UA Occasional /HPF Bacteria) [facility]budhhlIXYMFDMCHJ4465-96-35 21:40:00 Test Item Value Reference Range Interpretation Comments UA WBC (test code = 1 See_Comment N [Automa evin message] The UA WBC) system which ge nerated this result transmit evin reference range : <=5. The reference range was not used to interpr et this result as kev l/abnormal. [facility]SumuayiOJVCPYKPOS9070-62-50 21:40:00 Test Item Value Reference Range Interpretation Comments UA Color (test code = Yellow *NA*(02/21/2013 UA Color) 15:40:00) [facility]YeemwmvLWLSEGVYTB4322-07-67 21:40:00 Test Item Value Reference Range Interpretation Comments UA pH (test code = UA pH) 6.0 5.0-8.0 N [facility]oWlsjritPHBDGWBGMZ0522-92-26 21:40:00 Test Item Value Reference Range Interpretation Comments UA Turbidity (test code Slight A = UA Turbidity) *ABN*(02/21/2013 15:40:00) [facility]oIxmzgtlFASRKMFCQP1199-22-88 21:40:00 Test Item Value Reference Range Interpretation Comments UA Spec Grav (test code = UA Spec Grav) 1.006 N [facility]oTztbrfgOCUAEYKIM8987-68-75 21:27:00 Test Item Value Reference Range Interpretation Comments Amylase Lvl (test code = Amylase Lvl) 29 25-115 N [facility]oUbjdznoOPXWXSVLM3569-93-88 21:27:00 Test Item Value Reference Range Interpretation Comments Lipase Lvl (test code = Lipase Lvl) 113 73-393 N [facility]oSglwoisGSLSRICMA1025-80-31 21:27:00 Test Item Value Reference Range Interpretation Comments B/C Ratio (test code = B/C Ratio) 9 6-25 N [facility]oSobwelpRPCZXKMSS3109-28-14 21:27:00 Test Item Value Reference Range Interpretation Comments Globulin (test code = Globulin) 4.4 2.0-4.0 H [facility]BdzdllnFNBUNMGPO0076-82-10 21:27:00 Test Item Value Reference Range Interpretation Comments A/G Ratio (test code = A/G Ratio) 1.0 0.7-1.6 N [facility] RegionalOyjpgoqMKEJQICCQ8790-91-31 21:27:00 Test Item Value Reference Range Interpretation Comments AGAP (test code = AGAP) 12.6 10.0-20.0 N [facility] RegionalHyopmxqXEODUYDIN6137-97-39 21:27:00 Test Item Value Reference Range Interpretation Comments eGFR (test code = eGFR) 110 [facility] RegionalQblvkpsEJJBFGSTX1634-82-27 21:27:00 Test Item Value Reference Range Interpretation Comments Total Protein (test code = Total 8.8 6.4-8.4 H Protein) [facility] RegionalRiszfvaGMUWPPGVJ6206-22-97 21:27:00 Test Item Value Reference Range Interpretation Comments Albumin Lvl (test code = Albumin Lvl) 4.4 3.5-5.0 N [facility] RegionalUhzlculEPKOYBXOL2901-00-47 21:27:00 Test Item Value Reference Range Interpretation Comments Alk Phos (test code = Alk Phos) 101 39-136 N [facility] RegionalFwipozaAHFLIXSJK0762-28-53 21:27:00 Test Item Value Reference Range Interpretation Comments ALANINE AMINOTRANSFERASE 122 See_Comment H [A utomated message] (test code = ALANINE The sys tem which AMINOTRANSFERASE) generated this result transmitted ref erence range: <=65. Th e reference range was not used to int erpret this result as normal/abnormal . [facility] RegionalHrsndrhKEEYXVZAE1286-91-18 21:27:00 Test Item Value Reference Range Interpretation Comments Bili Total (test code = Bili Total) 0.9 0.2-1.3 N [facility] RegionalLlzezruIHEQXSKCP9921-74-65 21:27:00 Test Item Value Reference Range Interpretation Comments ASPARTATE TRANSAMINASE 103 See_Comment H [Aut omated message] (test code = ASPARTATE The s ystem which TRANSAMINASE) generated this result transmitted ref erence range: <=37. Th e reference range was not used to interpr et this result as normal/abnormal . [facility] RegionalFqkmjxhXBWEVGIOR2554-63-77 21:27:00 Test Item Value Reference Range Interpretation Comments Creatinine Lvl (test code = Creatinine 0.7 0.5-1.4 N Lvl) [facility] RegionalYqiqpakONAEIABJN6889-44-82 21:27:00 Test Item Value Reference Range Interpretation Comments Sodium Lvl (test code = Sodium Lvl) 140 135-145 N [facility] RegionalLgjmlazQLSCYIQBD5258-58-28 21:27:00 Test Item Value Reference Range Interpretation Comments Chloride Lvl (test code = Chloride Lvl) 101 95-109 N [facility] RegionalYbvpnbgKJGNDBNWI5388-60-77 21:27:00 Test Item Value Reference Range Interpretation Comments Potassium Lvl (test code = Potassium 3.6 3.5-5.1 N Lvl) [facility] RegionalMobiwfzFSGJZFBMN1284-31-57 21:27:00 Test Item Value Reference Range Interpretation Comments Calcium Lvl (test code = Calcium Lvl) 9.3 8.5-10.5 N [facility] RegionalZnhemnqKKALYOMMV6203-33-19 21:27:00 Test Item Value Reference Range Interpretation Comments CO2 (test code = CO2) 30 24-32 N [facility] RegionalDxhlomvHIWLQEYEM4704-22-00 21:27:00 Test Item Value Reference Range Interpretation Comments Glucose Lvl (test code = Glucose Lvl) 92 70-99 N [facility] RegionalWjfkxmvGFHGCPODJ8922-05-51 21:27:00 Test Item Value Reference Range Interpretation Comments BUN (test code = BUN) 6 7-22 L [facility] CenterNodlogzAJBFGJZDGN2779-91-64 21:27:00 Test Item Value Reference Range Interpretation Comments RBC X 10x6 (test code = RBC X 10x6) 4.69 4.20-5.40 N [facility] CenterLkmapqdTGKLCKOUYT1437-45-46 21:27:00 Test Item Value Reference Range Interpretation Comments WBC X 10x3 (test code = WBC X 10x3) 10.0 3.7-10.4 N [facility] CenterHldzgwyYXSGNEAKNG2716-67-10 21:27:00 Test Item Value Reference Range Interpretation Comments Hct (test code = Hct) 42.6 36.0-48.0 N [facility] CenterCvvpnpmVAMKHVOZDT1376-77-17 21:27:00 Test Item Value Reference Range Interpretation Comments Hgb (test code = Hgb) 14.3 12.0-16.0 N [facility] CenterMfnlwwnXWXTYNKCGU6187-04-99 21:27:00 Test Item Value Reference Range Interpretation Comments RDW (test code = RDW) 12.4 11.5-14.5 N [facility] CenterZjietlqHEBJSPZAGL1999-71-38 21:27:00 Test Item Value Reference Range Interpretation Comments MCV (test code = MCV) 90.7 81.0-99.0 N [facility] CenterKxuhbweTLKROGIXML8965-08-92 21:27:00 Test Item Value Reference Range Interpretation Comments MCH (test code = MCH) 30.5 pg 27.0-31.0 N [facility] CenterGnpnwfbNGCRYYNDZJ6384-79-10 21:27:00 Test Item Value Reference Range Interpretation Comments MCHC (test code = MCHC) 33.6 32.0-36.0 N [facility] CenterTxjbgjoVDQUMZHODV4368-35-63 21:27:00 Test Item Value Reference Range Interpretation Comments MPV (test code = MPV) 10.5 7.4-10.4 H [facility] CenterHszhtejJEHSCKHOVD1993-36-48 21:27:00 Test Item Value Reference Range Interpretation Comments Platelet (test code = Platelet) 273 133-450 N [facility] CenterSlzmqngMIYCLSENME1365-43-51 21:27:00 Test Item Value Reference Range Interpretation Comments Segs (test code = Segs) 60.8 45.0-75.0 N [facility] CenterDyehfdmHFTBINLZFE3216-83-81 21:27:00 Test Item Value Reference Range Interpretation Comments Segs-Bands # (test code = Segs-Bands #) 6.1 1.5-8.1 N [facility] CenterCxetcswFNQAOSGIWY4562-99-74 21:27:00 Test Item Value Reference Range Interpretation Comments Basophils (test code = 0.5 See_Comment N [Aut omated message] The Basophils) system which ge nerated this result tra nsmitted reference range : <=1.0. The reference r jailene was not used to int erpret this result as normal/abnormal . [facility] CenterAgpwdtdOTGTPXXWDD7219-91-72 21:27:00 Test Item Value Reference Range Interpretation Comments Monocytes (test code = Monocytes) 8.0 2.0-12.0 N [facility] CenterCmljlfkVUEFKRBSIG2965-46-04 21:27:00 Test Item Value Reference Range Interpretation Comments Lymphocytes (test code = Lymphocytes) 29.9 20.0-40.0 N [facility] CenterTwtnbxqRQKPQAZHZV1818-56-55 21:27:00 Test Item Value Reference Range Interpretation Comments Eosinophils (test code = 0.8 See_Comment N [A utomated message] The Eosinophils) system which ge nerated this result tra nsmitted reference range : <=4.0. The reference r jailene was not used to int erpret this result as normal/abnormal . [facility] CenterRmovyhfGLJLDHDBWH5849-93-70 21:27:00 Test Item Value Reference Range Interpretation Comments Eosinophils # (test code 0.1 See_Comment N [A utomated message] The = Eosinophils #) system whic h generated this result tra nsmitted reference range : <=0.5. The reference r jailene was not used to int erpret this result as normal/abnormal . [facility] CenterFdubzcnCDBCZEPQEU9671-45-04 21:27:00 Test Item Value Reference Range Interpretation Comments Monocytes # (test code 0.8 See_Comment N [Aut omated message] The = Monocytes #) system which generated this result tra nsmitted reference range : <=0.8. The reference r jailene was not used to int erpret this result as normal/abnormal . [facility] CenterHrvcpcoPRXUILRKXM9370-12-78 21:27:00 Test Item Value Reference Range Interpretation Comments Lymphocytes # (test code = Lymphocytes 3.0 1.0-5.5 N #) [facility] CenterRwfkdtkASTDHKUMBT9830-61-94 21:27:00 Test Item Value Reference Range Interpretation Comments Basophils # (test code 0.0 See_Comment N [Aut omated message] The = Basophils #) system which generated this result tra nsmitted reference range : <=0.2. The reference r jailene was not used to int erpret this result as normal/abnormal . [facility]lakeHiazeajNTIGUFCSS0973-59-69 18:45:00 Test Item Value Reference Range Interpretation Comments U Preg (test code = U Negative (01/20/2013 N Preg) 12:45:00) [facility]lakeBrvtcwnNRQRWGZPHQ0467-00-08 18:45:00 Test Item Value Reference Range Interpretation Comments UA WBC (test code = no gt See_Comment N [Automa evin message] The UA WBC) system which ge nerated this result transmit evin reference range : <=5. The reference range was not used to interpr et this result as kev l/abnormal. [facility]lakeRlouwvjOAIEVSKKGP5681-92-49 18:45:00 Test Item Value Reference Range Interpretation Comments UA Leuk Est (test Negative (01/20/2013 N code = UA Leuk Est) 12:45:00) [facility]VmwjvybJGZTKNPSFT9621-31-96 18:45:00 Test Item Value Reference Range Interpretation Comments UA RBC (test code = 1 See_Comment N [Automa evin message] The UA RBC) system which ge nerated this result transmit evin reference range : <=2. The reference range was not used to interpr et this result as kev l/abnormal. [facility] HospitalLyawnzlBQYRABXJHW3227-84-75 18:45:00 Test Item Value Reference Range Interpretation Comments UA Sq Epi (test code = UA Sq Moderate /LPF A Epi) [facility] HospitalYsqmjcdQMIDGPCVIS1045-03-58 18:45:00 Test Item Value Reference Range Interpretation Comments UA Urobilinogen (test code = UA <=1.0 mg/dL 0.1-1.0 Urobilinogen) [facility] HospitalIqhltfrVIZGQVNJQL7659-88-79 18:45:00 Test Item Value Reference Range Interpretation Comments UA Bili (test code = Negative *NA*(01/20/2013 UA Bili) 12:45:00) [facility] HospitalLjoutybVSWIAODQHH5389-78-39 18:45:00 Test Item Value Reference Range Interpretation Comments UA Blood (test code = Negative (01/20/2013 N UA Blood) 12:45:00) [facility] HospitalFlmqfzsSAMFVWWJQZ3403-54-64 18:45:00 Test Item Value Reference Range Interpretation Comments UA Nitrite (test code Negative (01/20/2013 N = UA Nitrite) 12:45:00) [facility] HospitalBuaddusFSSJFXBFHG2429-46-21 18:45:00 Test Item Value Reference Range Interpretation Comments UA Spec Grav (test code = UA Spec Grav) 1.015 N [facility] HospitalMeqjfezHORGYHUGCS0780-34-65 18:45:00 Test Item Value Reference Range Interpretation Comments UA Ketones (test code = UA Trace mg/dL A Ketones) [facility] HospitalOmwggpiURZCCORMTS3116-01-14 18:45:00 Test Item Value Reference Range Interpretation Comments UA Glucose (test code = UA Negative mg/dL Glucose) [facility] HospitalWhtycriVFWXCPCMBV2811-84-39 18:45:00 Test Item Value Reference Range Interpretation Comments UA Protein (test code = UA Negative mg/dL N Protein) [facility] HospitalSmgwytfUJSUTYLBRV3441-29-97 18:45:00 Test Item Value Reference Range Interpretation Comments UA pH (test code = UA pH) 8.0 5.0-8.0 N [facility] HospitalEloxbolBQPBBOAAAB4892-90-41 18:45:00 Test Item Value Reference Range Interpretation Comments UA Turbidity (test code Slight A = UA Turbidity) *ABN*(01/20/2013 12:45:00) [facility] HospitalRpcqxbxXAVDABQKKX6000-48-80 18:45:00 Test Item Value Reference Range Interpretation Comments UA Color (test code = Yellow *NA*(01/20/2013 UA Color) 12:45:00) [facility] RegionalTzlmejjLOOSXQXFM1491-63-22 18:18:00 Test Item Value Reference Range Interpretation Comments Globulin (test code = Globulin) 4.4 2.0-4.0 H [facility] RegionalUrfyyeaAJKLHTEIG3639-61-54 18:18:00 Test Item Value Reference Range Interpretation Comments B/C Ratio (test code = B/C Ratio) 8 6-25 N [facility] RegionalOqieutyLPAORFXFO4059-66-16 18:18:00 Test Item Value Reference Range Interpretation Comments AGAP (test code = AGAP) 9.7 10.0-20.0 L [facility] RegionalRkphqlgXIHXXCPCG9516-88-99 18:18:00 Test Item Value Reference Range Interpretation Comments A/G Ratio (test code = A/G Ratio) 0.9 0.7-1.6 N [facility] RegionalVrlvjnjITKJPRAFF7273-42-41 18:18:00 Test Item Value Reference Range Interpretation Comments eGFR (test code = eGFR) 116 [facility] RegionalNbblgpkBXALORHDJ1134-40-17 18:18:00 Test Item Value Reference Range Interpretation Comments Alk Phos (test code = Alk Phos) 102 39-136 N [facility] RegionalUztogjbKAPBDWURG8795-51-19 18:18:00 Test Item Value Reference Range Interpretation Comments ASPARTATE TRANSAMINASE 143 See_Comment H [Aut omated message] (test code = ASPARTATE The s ystem which TRANSAMINASE) generated this result transmitted ref erence range: <=37. Th e reference range was not used to interpr et this result as normal/abnormal . [facility] RegionalMwkmclvGQQPVWKXC5260-74-66 18:18:00 Test Item Value Reference Range Interpretation Comments Bili Total (test code = Bili Total) 0.6 0.2-1.3 N [facility] RegionalJjsczinZRRNHVHQX6314-52-68 18:18:00 Test Item Value Reference Range Interpretation Comments ALANINE AMINOTRANSFERASE 152 See_Comment H [A utomated message] (test code = ALANINE The sys tem which AMINOTRANSFERASE) generated this result transmitted ref erence range: <=65. Th e reference range was not used to int erpret this result as normal/abnormal . [facility] RegionalUkltdcqJPBDYCISL2033-08-86 18:18:00 Test Item Value Reference Range Interpretation Comments Calcium Lvl (test code = Calcium Lvl) 9.3 8.5-10.5 N [facility] RegionalZtcxlphZMBRRWUVT5186-95-82 18:18:00 Test Item Value Reference Range Interpretation Comments CO2 (test code = CO2) 29 24-32 N [facility] RegionalUxfqnwdAAZPBGQMS5538-45-50 18:18:00 Test Item Value Reference Range Interpretation Comments Albumin Lvl (test code = Albumin Lvl) 4.1 3.5-5.0 N [facility] RegionalTuwvazcSAXTTXOKU9141-71-06 18:18:00 Test Item Value Reference Range Interpretation Comments Total Protein (test code = Total 8.5 6.4-8.4 H Protein) [facility] RegionalShutcvvBZXNPMJFK9876-75-25 18:18:00 Test Item Value Reference Range Interpretation Comments BUN (test code = BUN) 5 7-22 L [facility] RegionalVyzyacsHVXHTZOWY0980-06-04 18:18:00 Test Item Value Reference Range Interpretation Comments Glucose Lvl (test code = Glucose Lvl) 103 70-99 H [facility] RegionalEvjhkdnTOIIJKADZ0595-20-60 18:18:00 Test Item Value Reference Range Interpretation Comments Sodium Lvl (test code = Sodium Lvl) 139 135-145 N [facility] RegionalCvthfgiDIBASNUCI5506-84-71 18:18:00 Test Item Value Reference Range Interpretation Comments Creatinine Lvl (test code = Creatinine 0.6 0.5-1.4 N Lvl) [facility] RegionalHfxngddVXGTDFDIB0036-92-50 18:18:00 Test Item Value Reference Range Interpretation Comments Chloride Lvl (test code = Chloride Lvl) 104 95-109 N [facility] RegionalExkscxgOMZHYAWMP5029-18-93 18:18:00 Test Item Value Reference Range Interpretation Comments Potassium Lvl (test code = Potassium 3.7 3.5-5.1 N Lvl) [facility] RegionalKgrvimvSOCRJORII6298-82-02 18:18:00 Test Item Value Reference Range Interpretation Comments Lipase Lvl (test code = Lipase Lvl) 97 73-393 N [facility] RegionalMcgjkwvPCDSYPRGD4925-27-69 18:18:00 Test Item Value Reference Range Interpretation Comments Amylase Lvl (test code = Amylase Lvl) 33 25-115 N [facility] CenterWafnvigMWZDCZEYSC2134-98-05 18:18:00 Test Item Value Reference Range Interpretation Comments Eosinophils # (test code 0.1 See_Comment N [A utomated message] The = Eosinophils #) system whic h generated this result tra nsmitted reference range : <=0.5. The reference r jailene was not used to int erpret this result as normal/abnormal . [facility] CenterOjatopoECGTGKUZJW8531-01-29 18:18:00 Test Item Value Reference Range Interpretation Comments Basophils # (test code 0.0 See_Comment N [Aut omated message] The = Basophils #) system which generated this result tra nsmitted reference range : <=0.2. The reference r jailene was not used to int erpret this result as normal/abnormal . [facility] CenterIfbfwigRULRNDWYRM0390-38-59 18:18:00 Test Item Value Reference Range Interpretation Comments Monocytes # (test code 0.7 See_Comment N [Aut omated message] The = Monocytes #) system which generated this result tra nsmitted reference range : <=0.8. The reference r jailene was not used to int erpret this result as normal/abnormal . [facility] CenterDbahzuuSZPNIAWMBI0661-86-66 18:18:00 Test Item Value Reference Range Interpretation Comments Lymphocytes # (test code = Lymphocytes 2.7 1.0-5.5 N #) [facility] CenterZwigxfsRNHACDLKCA8351-95-83 18:18:00 Test Item Value Reference Range Interpretation Comments Eosinophils (test code = 0.6 See_Comment N [A utomated message] The Eosinophils) system which ge nerated this result tra nsmitted reference range : <=4.0. The reference r jailene was not used to int erpret this result as normal/abnormal . [facility] CenterPeyrabeWWHAGUFCVG7225-14-37 18:18:00 Test Item Value Reference Range Interpretation Comments Basophils (test code = 0.2 See_Comment N [Aut omated message] The Basophils) system which ge nerated this result tra nsmitted reference range : <=1.0. The reference r jailene was not used to int erpret this result as normal/abnormal . [facility] CenterRlewobgOFBWTAIJKO4565-27-08 18:18:00 Test Item Value Reference Range Interpretation Comments Segs-Bands # (test code = Segs-Bands #) 6.6 1.5-8.1 N [facility] CenterWexzwigMODMXGNGOZ6366-25-64 18:18:00 Test Item Value Reference Range Interpretation Comments Lymphocytes (test code = Lymphocytes) 27.0 20.0-40.0 N [facility] CenterDqbixgjZWNWUCEXYN2961-59-21 18:18:00 Test Item Value Reference Range Interpretation Comments Monocytes (test code = Monocytes) 6.7 2.0-12.0 N [facility] CenterCbwbktdFZKTQJWWVY5427-48-15 18:18:00 Test Item Value Reference Range Interpretation Comments Segs (test code = Segs) 65.5 45.0-75.0 N [facility] CenterBgqfcdeZJGBQTJSFQ6596-55-73 18:18:00 Test Item Value Reference Range Interpretation Comments MPV (test code = MPV) 9.5 7.4-10.4 N [facility] CenterKnnlwqkNZLPMGJQNQ0192-41-12 18:18:00 Test Item Value Reference Range Interpretation Comments RDW (test code = RDW) 12.6 11.5-14.5 N [facility] CenterYteidgmWGZOSGAMZN7146-04-45 18:18:00 Test Item Value Reference Range Interpretation Comments MCHC (test code = MCHC) 33.0 32.0-36.0 N [facility] CenterOgxzdduVJNPQOWEAV0039-94-67 18:18:00 Test Item Value Reference Range Interpretation Comments Platelet (test code = Platelet) 313 133-450 N [facility] CenterZenxeqbEEFNLXNHLA1660-16-98 18:18:00 Test Item Value Reference Range Interpretation Comments MCH (test code = MCH) 30.0 pg 27.0-31.0 N [facility] CenterMfufxzdJMNBQHVWXZ0675-68-55 18:18:00 Test Item Value Reference Range Interpretation Comments MCV (test code = MCV) 90.8 81.0-99.0 N [place] [address]-12-05 18:18:00 Test Item Value Reference Range Interpretation Comments Hgb (test code = Hgb) 13.1 12.0-16.0 N [facility] CenterQewexjxABGGPFIOFX7138-24-43 18:18:00 Test Item Value Reference Range Interpretation Comments Hct (test code = Hct) 39.8 36.0-48.0 N [facility] CenterBfknhavZGSNGMCJUK1341-57-86 18:18:00 Test Item Value Reference Range Interpretation Comments RBC X 10x6 (test code = RBC X 10x6) 4.39 4.20-5.40 N [facility] CenterIzwqmigZAYLRIXEKJ0538-35-23 18:18:00 Test Item Value Reference Range Interpretation Comments WBC X 10x3 (test code = WBC X 10x3) 10.0 3.7-10.4 N [facility]ZfkfwjaBCLGUKVCVD6405-71-13 18:18:00 Test Item Value Reference Range Interpretation Comments Hep C Ab (test code = Negative *NA*(01/20/2013 Hep C Ab) 12:18:00) [facility]NlvfclqPFSEHUVEQT9348-09-51 18:18:00 Test Item Value Reference Range Interpretation Comments Hep B Core IgM (test Negative *NA*(01/20/2013 code = Hep B Core 12:18:00) IgM) [facility] HospitalUtxqafiIPOWCOAFLS6151-74-29 18:18:00 Test Item Value Reference Range Interpretation Comments Hep A IgM (test code Negative *NA*(01/20/2013 = Hep A IgM) 12:18:00) [facility] HospitalCdovucmYGUNXMAKVO9201-16-79 18:18:00 Test Item Value Reference Range Interpretation Comments Hep Bs Ag (test code Negative *NA*(01/20/2013 = Hep Bs Ag) 12:18:00) [facility]OhxdqltEERVYTABL7113-85-98 12:56:00 Test Item Value Reference Range Interpretation Comments Amylase Lvl (test code = Amylase Lvl) 31 25-115 N [facility] RegionalAzbdtdnLAOXJJXBK1726-67-20 12:56:00 Test Item Value Reference Range Interpretation Comments Lipase Lvl (test code = Lipase Lvl) 103 73-393 N [facility] RegionalUoylkusHNILGIEEG7237-90-97 11:20:00 Test Item Value Reference Range Interpretation Comments TSH (test code = TSH) 0.760 0.360-3.740 N [facility] RegionalLrdaafwVHLSBTAAO1472-27-74 11:20:00 Test Item Value Reference Range Interpretation Comments eGFR (test code = eGFR) 110 [facility] RegionalKpapkduEJYFOCZCN4155-04-43 11:20:00 Test Item Value Reference Range Interpretation Comments BUN (test code = BUN) 5 7-22 L [facility] RegionalInazaraBZQOYDFEO4976-42-25 11:20:00 Test Item Value Reference Range Interpretation Comments Chloride Lvl (test code = Chloride Lvl) 106 95-109 N [facility] RegionalTzupdaxPHMWNAFSX6880-84-24 11:20:00 Test Item Value Reference Range Interpretation Comments Creatinine Lvl (test code = Creatinine 0.7 0.5-1.4 N Lvl) [facility] RegionalSienhzoUZPAFEEOA1164-38-85 11:20:00 Test Item Value Reference Range Interpretation Comments Sodium Lvl (test code = Sodium Lvl) 140 135-145 N [facility] RegionalOlulzadOYXEYYSWY1235-40-28 11:20:00 Test Item Value Reference Range Interpretation Comments Potassium Lvl (test code = Potassium 3.8 3.5-5.1 N Lvl) [facility] [facility]YmpxojdJWMUSOFPV6728-20-53 11:20:00 Test Item Value Reference Range Interpretation Comments CO2 (test code = CO2) 27 24-32 N [facility] RegionalPayuvjaPBLRVSQBX7251-55-77 11:20:00 Test Item Value Reference Range Interpretation Comments Calcium Lvl (test code = Calcium Lvl) 8.5 8.5-10.5 N [facility] RegionalEuwyyhjTOLEAVTUI1396-93-42 11:20:00 Test Item Value Reference Range Interpretation Comments Glucose Lvl (test code = Glucose Lvl) 94 70-99 N [facility] RegionalIxxvkqePEXGPYXSQ3355-87-82 11:20:00 Test Item Value Reference Range Interpretation Comments AGAP (test code = AGAP) 10.8 10.0-20.0 N [facility] RegionalQjxfoaxCDPGRLRQO4377-50-19 11:20:00 Test Item Value Reference Range Interpretation Comments Bili Indirect (test 0.4 See_Comment N [Automa evin message] The code = Bili Indirect) system which generated this result tra nsmitted reference range : <=1.0. The reference r jailene was not used to int erpret this result as normal/abnormal . [facility] RegionalMqclyqbPCMPVKXHQ4160-71-26 11:20:00 Test Item Value Reference Range Interpretation Comments A/G Ratio (test code = A/G Ratio) 0.8 0.7-1.6 N [facility] RegionalOthdnulLHRHPACMM4640-94-98 11:20:00 Test Item Value Reference Range Interpretation Comments Globulin (test code = Globulin) 4.1 2.0-4.0 H [facility] RegionalUjqizejPCFTYLEOP6080-93-29 11:20:00 Test Item Value Reference Range Interpretation Comments Bili Direct (test code 0.2 See_Comment N [Aut omated message] The = Bili Direct) system which generated this result tra nsmitted reference range : <=0.3. The reference r jailene was not used to int erpret this result as kev l/abnormal. [facility] RegionalOcjlgldRZGBWYRFO3911-72-49 11:20:00 Test Item Value Reference Range Interpretation Comments ASPARTATE TRANSAMINASE 101 See_Comment H [Aut omated message] (test code = ASPARTATE The s ystem which TRANSAMINASE) generated this result transmitted ref erence range: <=37. Th e reference range was not used to interpr et this result as normal/abnormal . [facility] RegionalRlktskpFFJIQHITZ3398-80-46 11:20:00 Test Item Value Reference Range Interpretation Comments ALANINE AMINOTRANSFERASE 104 See_Comment H [A utomated message] (test code = ALANINE The sys tem which AMINOTRANSFERASE) generated this result transmitted ref erence range: <=65. Th e reference range was not used to int erpret this result as normal/abnormal . [facility] RegionalBywitwzVUPGCYYPO4428-74-73 11:20:00 Test Item Value Reference Range Interpretation Comments Alk Phos (test code = Alk Phos) 87 39-136 N [facility] RegionalLinspkrUCTLOKXQF3475-91-06 11:20:00 Test Item Value Reference Range Interpretation Comments Albumin Lvl (test code = Albumin Lvl) 3.3 3.5-5.0 L [facility] RegionalRzwvuwvVWFMLSHHA3722-29-38 11:20:00 Test Item Value Reference Range Interpretation Comments Bili Total (test code = Bili Total) 0.6 0.2-1.3 N [facility] RegionalBhxugdfMTUGZFNYV5339-22-25 11:20:00 Test Item Value Reference Range Interpretation Comments Total Protein (test code = Total 7.4 6.4-8.4 N Protein) [facility] CenterOdvwftqGLYQGXLSLO2907-49-67 11:20:00 Test Item Value Reference Range Interpretation Comments RBC X 10x6 (test code = RBC X 10x6) 3.97 4.20-5.40 L [facility] CenterRircfxvGJFRDAKDVD0095-86-78 11:20:00 Test Item Value Reference Range Interpretation Comments WBC X 10x3 (test code = WBC X 10x3) 8.1 3.7-10.4 N [facility] CenterKjpnejxNYREUVFMRW1879-32-10 11:20:00 Test Item Value Reference Range Interpretation Comments RDW (test code = RDW) 12.7 11.5-14.5 N [facility] CenterVymwyubHIJHNAVEVB1868-42-02 11:20:00 Test Item Value Reference Range Interpretation Comments MPV (test code = MPV) 9.3 7.4-10.4 N [facility] CenterWzsegphJWSPJZDJNI0875-98-90 11:20:00 Test Item Value Reference Range Interpretation Comments Platelet (test code = Platelet) 240 133-450 N [facility] CenterDsfvkwzKJSBYJIZTJ5036-54-88 11:20:00 Test Item Value Reference Range Interpretation Comments MCH (test code = MCH) 30.2 pg 27.0-31.0 N [facility] CenterDstxmrrDJGZKLWLND6897-66-82 11:20:00 Test Item Value Reference Range Interpretation Comments MCV (test code = MCV) 90.7 81.0-99.0 N [facility] CenterIjigpxsHFLPMGDGHY5211-77-78 11:20:00 Test Item Value Reference Range Interpretation Comments Hct (test code = Hct) 36.0 36.0-48.0 N [facility] CenterMbskbapCASGCQVGVA3153-46-81 11:20:00 Test Item Value Reference Range Interpretation Comments MCHC (test code = MCHC) 33.2 32.0-36.0 N [facility] CenterUovkbysDCJLMPBAYH0863-41-33 11:20:00 Test Item Value Reference Range Interpretation Comments Hgb (test code = Hgb) 12.0 12.0-16.0 N [facility] CenterYlfurhjLPEXYTSZSR6149-36-12 11:20:00 Test Item Value Reference Range Interpretation Comments Eosinophils # (test code 0.2 See_Comment N [A utomated message] The = Eosinophils #) system whic h generated this result tra nsmitted reference range : <=0.5. The reference r jailene was not used to int erpret this result as normal/abnormal . [facility] CenterCaihahuYCJGEZHLOP0005-43-38 11:20:00 Test Item Value Reference Range Interpretation Comments Basophils # (test code 0.0 See_Comment N [Aut omated message] The = Basophils #) system which generated this result tra nsmitted reference range : <=0.2. The reference r jailene was not used to int erpret this result as normal/abnormal . [facility] CenterLnccgakMZFUZINVLL5342-12-74 11:20:00 Test Item Value Reference Range Interpretation Comments Lymphocytes # (test code = Lymphocytes 3.2 1.0-5.5 N #) [facility] CenterPlfvvvyPBKBTLVFFR5466-51-08 11:20:00 Test Item Value Reference Range Interpretation Comments Segs-Bands # (test code = Segs-Bands #) 4.0 1.5-8.1 N [facility] CenterEekmifsYBMIKLFBSI2739-25-32 11:20:00 Test Item Value Reference Range Interpretation Comments Monocytes # (test code 0.7 See_Comment N [Aut omated message] The = Monocytes #) system which generated this result tra nsmitted reference range : <=0.8. The reference r jailene was not used to int erpret this result as normal/abnormal . [facility] CenterBrpgivkZEVCDKPSGZ8121-90-12 11:20:00 Test Item Value Reference Range Interpretation Comments Segs (test code = Segs) 49.5 45.0-75.0 N [facility] CenterTpvjbgrOKPBEUIHTR4033-58-97 11:20:00 Test Item Value Reference Range Interpretation Comments Basophils (test code = 0.3 See_Comment N [Aut omated message] The Basophils) system which ge nerated this result tra nsmitted reference range : <=1.0. The reference r jailene was not used to int erpret this result as normal/abnormal . [facility] CenterXjfvaxhAGWVOPOCPV0986-05-31 11:20:00 Test Item Value Reference Range Interpretation Comments Eosinophils (test code = 2.0 See_Comment N [A utomated message] The Eosinophils) system which ge nerated this result tra nsmitted reference range : <=4.0. The reference r jailene was not used to int erpret this result as normal/abnormal . [facility] CenterOkrvdjcSLPHARATBN3487-95-26 11:20:00 Test Item Value Reference Range Interpretation Comments Monocytes (test code = Monocytes) 8.8 2.0-12.0 N [facility] CenterFiffwotFFFPUMUQQR8964-00-21 11:20:00 Test Item Value Reference Range Interpretation Comments Lymphocytes (test code = Lymphocytes) 39.4 20.0-40.0 N [facility]JwwqljjGFGJWLBJTT6619-92-01 05:30:00 Test Item Value Reference Range Interpretation Comments UA Urobilinogen (test code = UA <=1.0 mg/dL 0.1-1.0 Urobilinogen) [facility]IefdfmaNFGFQTOADQ9998-99-70 05:30:00 Test Item Value Reference Range Interpretation Comments UA Hyal Cast (test 1 See_Comment N [Automat ed message] The code = UA Hyal Cast) system which generated this result transmit evin reference range : <=2. The reference range was not used to interpr et this result as kev l/abnormal. [facility] HospitalYbuuuikPEGSALHEGH2578-78-17 05:30:00 Test Item Value Reference Range Interpretation Comments UA Bili (test code = Negative *NA*(01/03/2013 UA Bili) 23:30:00) [facility] HospitalZbtfsthJPMHKYDVTZ5039-64-28 05:30:00 Test Item Value Reference Range Interpretation Comments UA Ketones (test code = UA Negative mg/dL Ketones) [facility] HospitalGqhcfgnGOYFPEQKJV3862-36-07 05:30:00 Test Item Value Reference Range Interpretation Comments UA Blood (test code = Small *ABN*(01/03/2013 A UA Blood) 23:30:00) [facility] HospitalMtizmkmEVAUXJACTC9089-11-92 05:30:00 Test Item Value Reference Range Interpretation Comments UA Nitrite (test code Negative (01/03/2013 N = UA Nitrite) 23:30:00) [facility] HospitalDuimnfcGJBWLVNQGS9339-04-33 05:30:00 Test Item Value Reference Range Interpretation Comments UA Glucose (test code = UA Negative mg/dL Glucose) [facility] HospitalPntprxdQPFRDUJBJS3461-61-91 05:30:00 Test Item Value Reference Range Interpretation Comments UA RBC (test code = 2 See_Comment N [Automa evin message] The UA RBC) system which ge nerated this result transmit evin reference range : <=2. The reference range was not used to interpr et this result as kev l/abnormal. [facility] HospitalWslzvepMWOGTRGSFC8479-25-48 05:30:00 Test Item Value Reference Range Interpretation Comments UA Mucus (test code = UA Mucus) Few /LPF [facility] HospitalFkitqosQWFYDIIHGN4440-59-06 05:30:00 Test Item Value Reference Range Interpretation Comments UA Leuk Est (test Negative (01/03/2013 N code = UA Leuk Est) 23:30:00) [facility]RhrszkoEMRLWJTSYL8815-93-17 05:30:00 Test Item Value Reference Range Interpretation Comments UA Sq Epi (test code = UA Sq Epi) Few /LPF [facility] HospitalOwzaswsTDLRMFFZHH2368-12-91 05:30:00 Test Item Value Reference Range Interpretation Comments UA WBC (test code = 1 See_Comment N [Automa evin message] The UA WBC) system which ge nerated this result transmit evin reference range : <=5. The reference range was not used to interpr et this result as kev l/abnormal. [facility] HospitalTmhxwfuXGVSCVHJSK2407-12-56 05:30:00 Test Item Value Reference Range Interpretation Comments UA Turbidity (test code Slight A = UA Turbidity) *ABN*(01/03/2013 23:30:00) [facility] HospitalYeyibseZZUGNTWWBN7919-92-17 05:30:00 Test Item Value Reference Range Interpretation Comments UA Spec Grav (test code = UA Spec Grav) 1.015 N [facility] HospitalOioxalsHFNEWBLYYW6045-22-72 05:30:00 Test Item Value Reference Range Interpretation Comments UA pH (test code = UA pH) 6.0 5.0-8.0 N [facility] HospitalKpfmfswXJBRNMLLCJ8835-79-44 05:30:00 Test Item Value Reference Range Interpretation Comments UA Protein (test code = UA Negative mg/dL N Protein) [facility] HospitalCynqpvjCDBLFZYSBV8384-95-85 05:30:00 Test Item Value Reference Range Interpretation Comments UA Color (test code = Yellow *NA*(01/03/2013 UA Color) 23:30:00) [facility] RegionalTqhtmbuMVNOHTPKY7321-33-63 04:29:00 Test Item Value Reference Range Interpretation Comments eGFR (test code = eGFR) 110 [facility] RegionalNxgjxtwOXFRBPIST3219-40-94 04:29:00 Test Item Value Reference Range Interpretation Comments Chloride Lvl (test code = Chloride Lvl) 105 95-109 N [facility] RegionalLxjzcknAADUTMWHD7877-37-79 04:29:00 Test Item Value Reference Range Interpretation Comments Total Protein (test code = Total 7.9 6.4-8.4 N Protein) [facility] RegionalYrltofzJEFHXEPUW7318-87-81 04:29:00 Test Item Value Reference Range Interpretation Comments Calcium Lvl (test code = Calcium Lvl) 8.9 8.5-10.5 N [facility] RegionalDwocchyZVNZXGQNI0788-14-92 04:29:00 Test Item Value Reference Range Interpretation Comments CO2 (test code = CO2) 28 24-32 N [facility]XdvdjfmDSGQXRJZQ6906-45-75 04:29:00 Test Item Value Reference Range Interpretation Comments Glucose Lvl (test code = Glucose Lvl) 102 70-99 H [facility] RegionalOpokbrcVNJRLRLCZ4599-70-29 04:29:00 Test Item Value Reference Range Interpretation Comments Albumin Lvl (test code = Albumin Lvl) 3.8 3.5-5.0 N [facility] RegionalWwimnkpUKRXENWXX3517-87-95 04:29:00 Test Item Value Reference Range Interpretation Comments Sodium Lvl (test code = Sodium Lvl) 138 135-145 N [facility] RegionalNsvcrusMTOFEXIXL4001-53-39 04:29:00 Test Item Value Reference Range Interpretation Comments Creatinine Lvl (test code = Creatinine 0.7 0.5-1.4 N Lvl) [facility] RegionalJlszxirLXPRPSVVZ3758-20-56 04:29:00 Test Item Value Reference Range Interpretation Comments BUN (test code = BUN) 6 7-22 L [facility] RegionalMtynrifOFRATXAJC1743-94-86 04:29:00 Test Item Value Reference Range Interpretation Comments Potassium Lvl (test code = Potassium 3.7 3.5-5.1 N Lvl) [facility] RegionalQjrplrzPLDCMNJFN2656-14-83 04:29:00 Test Item Value Reference Range Interpretation Comments ASPARTATE TRANSAMINASE 76 See_Comment H [Aut omated message] (test code = ASPARTATE The s ystem which TRANSAMINASE) generated this result transmitted ref erence range: <=37. Th e reference range was not used to interpr et this result as normal/abnormal . [facility] RegionalFfkuwbrKTPWVCUOG3826-68-68 04:29:00 Test Item Value Reference Range Interpretation Comments Bili Total (test code = Bili Total) 0.6 0.2-1.3 N [facility] RegionalNjovpquMUHRLIKHN7871-37-05 04:29:00 Test Item Value Reference Range Interpretation Comments Alk Phos (test code = Alk Phos) 87 39-136 N [facility] RegionalKesucywSVEDDHNHV8722-96-29 04:29:00 Test Item Value Reference Range Interpretation Comments ALANINE AMINOTRANSFERASE 90 See_Comment H [A utomated message] (test code = ALANINE The sys tem which AMINOTRANSFERASE) generated this result transmitted ref erence range: <=65. Th e reference range was not used to int erpret this result as normal/abnormal . [facility] RegionalGgcdswqBSRYBXZPE8974-80-03 04:29:00 Test Item Value Reference Range Interpretation Comments B/C Ratio (test code = B/C Ratio) 9 6-25 N [facility] RegionalIiqrylhPGHYGHJKM7294-41-98 04:29:00 Test Item Value Reference Range Interpretation Comments A/G Ratio (test code = A/G Ratio) 0.9 0.7-1.6 N [facility] RegionalHosdeqpTVDHDVQWK9473-38-71 04:29:00 Test Item Value Reference Range Interpretation Comments Globulin (test code = Globulin) 4.1 2.0-4.0 H [facility] RegionalGvyiryxLXCTSFGMK0499-16-47 04:29:00 Test Item Value Reference Range Interpretation Comments AGAP (test code = AGAP) 8.7 10.0-20.0 L [facility] RegionalBsjeejrXPNUJOBBW5608-69-36 04:29:00 Test Item Value Reference Range Interpretation Comments Amylase Lvl (test code = Amylase Lvl) 41 25-115 N [facility] RegionalHlqinivEODGUKBBC8836-67-80 04:29:00 Test Item Value Reference Range Interpretation Comments Magnesium Lvl (test code = Magnesium 1.8 1.8-2.4 N Lvl) [facility] RegionalHemildhEMGUZSPRY9739-83-60 04:29:00 Test Item Value Reference Range Interpretation Comments Lipase Lvl (test code = Lipase Lvl) 138 73-393 N [facility] CenterUmaqfzxPUFARNRJFA8732-03-71 04:29:00 Test Item Value Reference Range Interpretation Comments MCHC (test code = MCHC) 33.5 32.0-36.0 N [facility] CenterZgzznefMOWMMIMISM5001-38-35 04:29:00 Test Item Value Reference Range Interpretation Comments MPV (test code = MPV) 8.7 7.4-10.4 N [facility] CenterYypuldtIEEZEEXMBL6020-61-96 04:29:00 Test Item Value Reference Range Interpretation Comments RDW (test code = RDW) 12.9 11.5-14.5 N [facility] CenterHdnjokiXJQCWPWWKL8985-81-19 04:29:00 Test Item Value Reference Range Interpretation Comments Platelet (test code = Platelet) 264 133-450 N [facility] CenterXroqqylOIGNNIPYTV3571-61-68 04:29:00 Test Item Value Reference Range Interpretation Comments WBC X 10x3 (test code = WBC X 10x3) 10.4 3.7-10.4 N [facility] CenterZdrjsqrGTSRDDWFAG4370-89-40 04:29:00 Test Item Value Reference Range Interpretation Comments MCV (test code = MCV) 89.4 81.0-99.0 N [facility] CenterQsfeoouHVVCMZFLCH0838-82-98 04:29:00 Test Item Value Reference Range Interpretation Comments MCH (test code = MCH) 29.9 pg 27.0-31.0 N [facility] CenterPnjckuvZDIUMQRIXV1993-93-54 04:29:00 Test Item Value Reference Range Interpretation Comments Hgb (test code = Hgb) 12.8 12.0-16.0 N [facility] CenterLejaxigSEXQFCYHAX2071-90-63 04:29:00 Test Item Value Reference Range Interpretation Comments Hct (test code = Hct) 38.1 36.0-48.0 N [facility] CenterAwesfofMPZZWPKYMX2239-02-23 04:29:00 Test Item Value Reference Range Interpretation Comments RBC X 10x6 (test code = RBC X 10x6) 4.26 4.20-5.40 N [facility] CenterWvlvccuCJCFTFVXBI5486-67-35 04:29:00 Test Item Value Reference Range Interpretation Comments Segs-Bands # (test code = Segs-Bands #) 5.3 1.5-8.1 N [facility] CenterNoflueyWDCQXGXCBA0729-80-28 04:29:00 Test Item Value Reference Range Interpretation Comments Lymphocytes (test code = Lymphocytes) 38.2 20.0-40.0 N [facility] CenterLnjrsdlPWKOXEPJBT4126-62-64 04:29:00 Test Item Value Reference Range Interpretation Comments Segs (test code = Segs) 51.5 45.0-75.0 N [facility] CenterPaphirsMECGBHTSUL9322-54-96 04:29:00 Test Item Value Reference Range Interpretation Comments Basophils # (test code 0.0 See_Comment N [Aut omated message] The = Basophils #) system which generated this result tra nsmitted reference range : <=0.2. The reference r jailene was not used to int erpret this result as normal/abnormal . [facility] CenterCwiierzTCYACLSNLH7344-96-15 04:29:00 Test Item Value Reference Range Interpretation Comments Monocytes (test code = Monocytes) 8.1 2.0-12.0 N [facility] CenterKgmrltxGGKZYYKWPJ3475-69-48 04:29:00 Test Item Value Reference Range Interpretation Comments Basophils (test code = 0.3 See_Comment N [Aut omated message] The Basophils) system which ge nerated this result tra nsmitted reference range : <=1.0. The reference r jailene was not used to int erpret this result as normal/abnormal . [facility] CenterHhgjalhLYVQXQNPRG6987-50-64 04:29:00 Test Item Value Reference Range Interpretation Comments Eosinophils (test code = 1.9 See_Comment N [A utomated message] The Eosinophils) system which ge nerated this result tra nsmitted reference range : <=4.0. The reference r jailene was not used to int erpret this result as normal/abnormal . [facility] CenterJewjaxqKXDSZYADFM7621-74-84 04:29:00 Test Item Value Reference Range Interpretation Comments Monocytes # (test code 0.8 See_Comment N [Aut omated message] The = Monocytes #) system which generated this result tra nsmitted reference range : <=0.8. The reference r jailene was not used to int erpret this result as normal/abnormal . [facility] CenterGjsdimsLIBLXNHOTN5346-53-40 04:29:00 Test Item Value Reference Range Interpretation Comments Eosinophils # (test code 0.2 See_Comment N [A utomated message] The = Eosinophils #) system whic h generated this result tra nsmitted reference range : <=0.5. The reference r jailene was not used to int erpret this result as normal/abnormal . [facility] CenterGxykgezFIDYHYZSFH6215-98-37 04:29:00 Test Item Value Reference Range Interpretation Comments Lymphocytes # (test code = Lymphocytes 4.0 1.0-5.5 N #) [facility] RegionalAapqhemFDMIKDDIU5470-54-10 02:40:00 Test Item Value Reference Range Interpretation Comments AGAP (test code = AGAP) 9.6 10.0-20.0 L [facility] RegionalChniezfIZMAENZWT6449-69-30 02:40:00 Test Item Value Reference Range Interpretation Comments B/C Ratio (test code = B/C Ratio) 8 6-25 N [facility] RegionalNmcelckZOXGYOKHC3190-04-69 02:40:00 Test Item Value Reference Range Interpretation Comments Globulin (test code = Globulin) 4.4 2.0-4.0 H [facility] RegionalOhtrhxcZYQYVMALH6051-11-50 02:40:00 Test Item Value Reference Range Interpretation Comments A/G Ratio (test code = A/G Ratio) 0.8 0.7-1.6 N [facility]IyqdpnfGRBXDTOHL9312-22-35 02:40:00 Test Item Value Reference Range Interpretation Comments Potassium Lvl (test code = Potassium 3.6 3.5-5.1 N Lvl) [facility] RegionalYiumtswUMTDSIZHX7982-04-95 02:40:00 Test Item Value Reference Range Interpretation Comments Sodium Lvl (test code = Sodium Lvl) 140 135-145 N [facility] RegionalDqqvonaEZMPLNRNP8991-99-20 02:40:00 Test Item Value Reference Range Interpretation Comments Chloride Lvl (test code = Chloride Lvl) 104 95-109 N [facility] RegionalXieqvljNAPYOHGVL3174-97-07 02:40:00 Test Item Value Reference Range Interpretation Comments eGFR (test code = eGFR) 94 [facility] RegionalPxbrdpiJARDGJMSN1639-03-94 02:40:00 Test Item Value Reference Range Interpretation Comments Creatinine Lvl (test code = Creatinine 0.8 0.5-1.4 N Lvl) [facility] RegionalNkgtvlyZWBQBXWEO2928-94-64 02:40:00 Test Item Value Reference Range Interpretation Comments BUN (test code = BUN) 6 7-22 L [facility] RegionalSywvtxzCVUINPCLI1529-07-89 02:40:00 Test Item Value Reference Range Interpretation Comments Glucose Lvl (test code = Glucose Lvl) 94 70-99 N [facility] RegionalHnigfaqZTQOWILQP7654-76-43 02:40:00 Test Item Value Reference Range Interpretation Comments Albumin Lvl (test code = Albumin Lvl) 3.6 3.5-5.0 N [facility] RegionalAjpxlhhTVSJQFJXE2398-66-87 02:40:00 Test Item Value Reference Range Interpretation Comments Alk Phos (test code = Alk Phos) 111 39-136 N [facility] RegionalYebkmbnZQTPXXPTO8014-97-92 02:40:00 Test Item Value Reference Range Interpretation Comments Total Protein (test code = Total 8.0 6.4-8.4 N Protein) [facility] RegionalTtowktxXFOPDDJZL5899-89-93 02:40:00 Test Item Value Reference Range Interpretation Comments ALANINE AMINOTRANSFERASE 90 See_Comment H [A utomated message] (test code = ALANINE The sys tem which AMINOTRANSFERASE) generated this result transmitted ref erence range: <=65. Th e reference range was not used to int erpret this result as normal/abnormal . [facility] RegionalPvosmhjOAQCIERUA4863-52-66 02:40:00 Test Item Value Reference Range Interpretation Comments CO2 (test code = CO2) 30 24-32 N [facility] RegionalNhrrvlxZVIKSOUMW6013-96-09 02:40:00 Test Item Value Reference Range Interpretation Comments Calcium Lvl (test code = Calcium Lvl) 8.8 8.5-10.5 N [facility] RegionalDtguekcHIJHPFBPF6620-71-34 02:40:00 Test Item Value Reference Range Interpretation Comments ASPARTATE TRANSAMINASE 61 See_Comment H [Aut omated message] (test code = ASPARTATE The s ystem which TRANSAMINASE) generated this result transmitted ref erence range: <=37. Th e reference range was not used to interpr et this result as normal/abnormal . [facility]TinqsabNFYNHPWZM7622-63-14 02:40:00 Test Item Value Reference Range Interpretation Comments Bili Total (test code = Bili Total) 0.2 0.2-1.3 N [facility] CenterCokjrqlQBCLQTYOAI1093-68-98 02:40:00 Test Item Value Reference Range Interpretation Comments MCHC (test code = MCHC) 33.5 32.0-36.0 N [facility] CenterAgosiueIHXDAJCNGG2354-63-01 02:40:00 Test Item Value Reference Range Interpretation Comments RDW (test code = RDW) 12.9 11.5-14.5 N [facility] CenterXhmjaakNMWVLMGJMT3797-67-34 02:40:00 Test Item Value Reference Range Interpretation Comments WBC X 10x3 (test code = WBC X 10x3) 9.8 3.7-10.4 N [facility] CenterVvooxkqTPHWUNFLBS2995-84-74 02:40:00 Test Item Value Reference Range Interpretation Comments Platelet (test code = Platelet) 273 133-450 N [facility] CenterSxzfeowSTEKGIZKUZ8547-14-11 02:40:00 Test Item Value Reference Range Interpretation Comments MPV (test code = MPV) 10.1 7.4-10.4 N [facility] CenterRrrbimcWKDQAKFMKQ7046-50-15 02:40:00 Test Item Value Reference Range Interpretation Comments MCV (test code = MCV) 90.0 81.0-99.0 N [facility] CenterWpzpxcoSVABRDRIAV4478-16-32 02:40:00 Test Item Value Reference Range Interpretation Comments MCH (test code = MCH) 30.2 pg 27.0-31.0 N [facility] CenterHzpwdqzNUZNXOALYI7701-10-29 02:40:00 Test Item Value Reference Range Interpretation Comments RBC X 10x6 (test code = RBC X 10x6) 4.17 4.20-5.40 L [facility] CenterNoijmldLYZOCFTJTG7196-30-06 02:40:00 Test Item Value Reference Range Interpretation Comments Hct (test code = Hct) 37.5 36.0-48.0 N [facility] CenterFimapfiAMKZTGEYBC2329-94-68 02:40:00 Test Item Value Reference Range Interpretation Comments Hgb (test code = Hgb) 12.6 12.0-16.0 N [facility] CenterSbchdyfGAYJBZKGXU9543-64-41 02:40:00 Test Item Value Reference Range Interpretation Comments Lymphocytes # (test code = Lymphocytes 3.9 1.0-5.5 N #) [facility] CenterVnifxqsJPPRYTLAHH2012-39-32 02:40:00 Test Item Value Reference Range Interpretation Comments Basophils # (test code 0.0 See_Comment N [Aut omated message] The = Basophils #) system which generated this result tra nsmitted reference range : <=0.2. The reference r jailene was not used to int erpret this result as normal/abnormal . [facility] CenterBkclgwuCMWPDWNDKK6694-57-42 02:40:00 Test Item Value Reference Range Interpretation Comments Eosinophils # (test code 0.2 See_Comment N [A utomated message] The = Eosinophils #) system [facility] generated this result tra nsmitted reference range : <=0.5. The reference r jailene was not used to int erpret this result as normal/abnormal . [facility] CenterPxvzvyyTORRAFIORQ6860-40-01 02:40:00 Test Item Value Reference Range Interpretation Comments Monocytes # (test code 0.9 See_Comment H [Aut omated message] The = Monocytes #) system which generated this result tra nsmitted reference range : <=0.8. The reference r jailene was not used to int erpret this result as normal/abnormal . [facility] CenterUsckghgXSAHXTLUVB1953-03-19 02:40:00 Test Item Value Reference Range Interpretation Comments Segs-Bands # (test code = Segs-Bands #) 4.7 1.5-8.1 N [facility]OrkixwbGJSSOOAWKA8839-73-86 02:40:00 Test Item Value Reference Range Interpretation Comments Basophils (test code = 0.4 See_Comment N [Aut omated message] The Basophils) system which ge nerated this result tra nsmitted reference range : <=1.0. The reference r jailene was not used to int erpret this result as normal/abnormal . [facility] InstituteDdvnvarDZADUCKQBO7930-45-50 02:40:00 Test Item Value Reference Range Interpretation Comments Lymphocytes (test code = Lymphocytes) 39.7 20.0-40.0 N [facility] InstituteUnpioioWGTCOLETYM2142-03-15 02:40:00 Test Item Value Reference Range Interpretation Comments Segs (test code = Segs) 48.0 45.0-75.0 N [facility] CenterZlbzhmtABIZOIVIBS1300-13-56 02:40:00 Test Item Value Reference Range Interpretation Comments Eosinophils (test code = 2.5 See_Comment N [A utomated message] The Eosinophils) system which ge nerated this result tra nsmitted reference range : <=4.0. The reference r jailene was not used to int erpret this result as normal/abnormal . [facility] InstituteHcslbtjTTOQBILSHE2877-24-61 02:40:00 Test Item Value Reference Range Interpretation Comments Monocytes (test code = Monocytes) 9.4 2.0-12.0 N [facility]lakeKhxybrxUFIGKGDDD3468-60-26 00:35:00 Test Item Value Reference Range Interpretation Comments U Preg (test code = U Negative (12/15/2012 N Preg) 19:35:00) [facility]lakePizmknzMAZUXNDYYG7319-14-81 00:35:00 Test Item Value Reference Range Interpretation Comments UA Color (test code = UA Color) Ltyellow [facility]lakeEejlbavJYPOWLLMZB1350-40-36 00:35:00 Test Item Value Reference Range Interpretation Comments UA Urobilinogen (test code = UA <=1.0 mg/dL 0.1-1.0 Urobilinogen) [facility]lakeNtwvlqhEKDZQFVNNY6016-37-42 00:35:00 Test Item Value Reference Range Interpretation Comments UA Turbidity (test code Slight A = UA Turbidity) *ABN*(12/15/2012 19:35:00) [facility]lakeIoraqcqIEIAQCWRZL8040-17-10 00:35:00 Test Item Value Reference Range Interpretation Comments UA Spec Grav (test code = UA Spec Grav) 1.012 N [facility] HospitalMxgyaguKXSKEAEQLY1882-86-20 00:35:00 Test Item Value Reference Range Interpretation Comments UA Bacteria (test code = UA Occasional /HPF Bacteria) [facility] HospitalWizwplcYKJGPOPGDB1998-24-45 00:35:00 Test Item Value Reference Range Interpretation Comments UA RBC (test code = 1 See_Comment N [Automa evin message] The UA RBC) system which ge nerated this result transmit evin reference range : <=2. The reference range was not used to interpr et this result as kev l/abnormal. [facility] HospitalUkiewhkEVWRVNLGDT5724-31-48 00:35:00 Test Item Value Reference Range Interpretation Comments UA Blood (test code = Negative (12/15/2012 N UA Blood) 19:35:00) [facility] HospitalMyotmogAZMWIWPLGC7270-43-52 00:35:00 Test Item Value Reference Range Interpretation Comments UA Nitrite (test code Negative (12/15/2012 N = UA Nitrite) 19:35:00) [facility] HospitalXmmlnaqOKJMEYGWCY2738-45-39 00:35:00 Test Item Value Reference Range Interpretation Comments UA WBC (test code = 1 See_Comment N [Automa evin message] The UA WBC) system which ge nerated this result transmit evin reference range : <=5. The reference range was not used to interpr et this result as kev l/abnormal. [facility] HospitalEtpztkdCEZGSJGRED1487-06-33 00:35:00 Test Item Value Reference Range Interpretation Comments UA Leuk Est (test Negative (12/15/2012 N code = UA Leuk Est) 19:35:00) [facility] HospitalDbxnjuwJVNQIIRJEK2308-23-02 00:35:00 Test Item Value Reference Range Interpretation Comments UA Sq Epi (test code = UA Sq Moderate /LPF A Epi) [facility] HospitalAujcsmxNKQPVBZYAM0617-78-68 00:35:00 Test Item Value Reference Range Interpretation Comments UA Protein (test code = UA Negative mg/dL N Protein) [facility] HospitalVaxojmpWKSJWDTISZ2633-60-83 00:35:00 Test Item Value Reference Range Interpretation Comments UA Glucose (test code = UA Negative mg/dL Glucose) [facility] HospitalFovknxsTLZNCIEAGF8688-32-42 00:35:00 Test Item Value Reference Range Interpretation Comments UA pH (test code = UA pH) 6.0 5.0-8.0 N [facility]lakeHtjmcbgBMNUJORWPT5395-05-24 00:35:00 Test Item Value Reference Range Interpretation Comments UA Ketones (test code = UA Negative mg/dL Ketones) [facility]lakeSbykvoqTGZMYOCPDX4626-10-10 00:35:00 Test Item Value Reference Range Interpretation Comments UA Bili (test code = Negative *NA*(12/15/2012 UA Bili) 19:35:00) [facility] RegionalFkmqvkuJZAWYFMHM9436-81-07 22:55:00 Test Item Value Reference Range Interpretation Comments AGAP (test code = AGAP) 11.5 10.0-20.0 N [facility] RegionalLlaydubRFWIWSRNC8669-63-91 22:55:00 Test Item Value Reference Range Interpretation Comments Globulin (test code = Globulin) 4.8 2.0-4.0 H [facility] RegionalFfylnyuTHJPNWDIJ2384-81-70 22:55:00 Test Item Value Reference Range Interpretation Comments B/C Ratio (test code = B/C Ratio) 6 6-25 N [facility] RegionalUiwtbgsDFFMFGSAI0166-79-49 22:55:00 Test Item Value Reference Range Interpretation Comments A/G Ratio (test code = A/G Ratio) 0.9 0.7-1.6 N [facility] RegionalXtsfmzgJZNRYUPHV7811-49-26 22:55:00 Test Item Value Reference Range Interpretation Comments eGFR (test code = eGFR) 94 [facility] RegionalIrenqecPGBZSSQDY7191-55-44 22:55:00 Test Item Value Reference Range Interpretation Comments CO2 (test code = CO2) 30 24-32 N [facility] RegionalHbknjysXOJHWSDZB6800-80-22 22:55:00 Test Item Value Reference Range Interpretation Comments Creatinine Lvl (test code = Creatinine 0.8 0.5-1.4 N Lvl) [facility] RegionalUetgyjcDYFNYJOYM8432-51-52 22:55:00 Test Item Value Reference Range Interpretation Comments Calcium Lvl (test code = Calcium Lvl) 9.3 8.5-10.5 N [facility] RegionalOrakxkmCZPOHZWOC2931-18-16 22:55:00 Test Item Value Reference Range Interpretation Comments Alk Phos (test code = Alk Phos) 115 39-136 N [facility] RegionalWruhlaxRLVTAUGDG7382-07-57 22:55:00 Test Item Value Reference Range Interpretation Comments Albumin Lvl (test code = Albumin Lvl) 4.1 3.5-5.0 N [facility] RegionalIwwdfkdMRSMMFVJF9014-58-39 22:55:00 Test Item Value Reference Range Interpretation Comments Total Protein (test code = Total 8.9 6.4-8.4 H Protein) [facility] RegionalIawtgihSRWRTTKCB0238-11-51 22:55:00 Test Item Value Reference Range Interpretation Comments ALT (test code = ALT) 40 See_Comment N [Auto mated message] The system which ge nerated this result transmit evin reference range : <=65. The reference range was not used to interpr et this result as kev l/abnormal. [facility] RegionalPjsblfbRTHHHJQEX7157-82-35 22:55:00 Test Item Value Reference Range Interpretation Comments AST (test code = AST) 24 See_Comment N [Auto mated message] The system which ge nerated this result transmit evin reference range : <=37. The reference range was not used to interpr et this result as kev l/abnormal. [facility]oZopdsfrCHPTTYIEK5342-52-69 22:55:00 Test Item Value Reference Range Interpretation Comments Bili Total (test code = Bili Total) 0.2 0.2-1.3 N [facility]VwansddBVPWETDQT0460-68-98 22:55:00 Test Item Value Reference Range Interpretation Comments Glucose Lvl (test code = Glucose Lvl) 87 70-99 N [facility]oRqxqeigPYNIFKTEJ6336-45-10 22:55:00 Test Item Value Reference Range Interpretation Comments BUN (test code = BUN) 5 7-22 L [facility] RegionalSbuzfsxKEZHURKLT9640-05-76 22:55:00 Test Item Value Reference Range Interpretation Comments Potassium Lvl (test code = Potassium 3.5 3.5-5.1 N Lvl) [facility] RegionalBdpymxlYWDCMXVHE2443-53-70 22:55:00 Test Item Value Reference Range Interpretation Comments Sodium Lvl (test code = Sodium Lvl) 139 135-145 N [facility]oYugujlfZDCTXTTNJ8746-59-66 22:55:00 Test Item Value Reference Range Interpretation Comments Chloride Lvl (test code = Chloride Lvl) 101 95-109 N [facility] CenterFbakmpcFDTBDCIPXG8149-81-60 22:55:00 Test Item Value Reference Range Interpretation Comments Basophils # (test code 0.1 See_Comment N [Aut omated message] The = Basophils #) system which generated this result tra nsmitted reference range : <=0.2. The reference r jailene was not used to int erpret this result as normal/abnormal . [facility] CenterFflywzhGALOSFLYYX0391-17-10 22:55:00 Test Item Value Reference Range Interpretation Comments Eosinophils # (test code 0.2 See_Comment N [A utomated message] The = Eosinophils #) system whic h generated this result tra nsmitted reference range : <=0.5. The reference r jailene was not used to int erpret this result as normal/abnormal . [facility] CenterNjqiryuAGQNCXVKKS5572-48-20 22:55:00 Test Item Value Reference Range Interpretation Comments Monocytes # (test code 0.8 See_Comment N [Aut omated message] The = Monocytes #) system which generated this result tra nsmitted reference range : <=0.8. The reference r jailene was not used to int erpret this result as normal/abnormal . [facility] CenterNjtxzyeVSKCBBUJXV5719-02-93 22:55:00 Test Item Value Reference Range Interpretation Comments Lymphocytes (test code = Lymphocytes) 22.5 20.0-40.0 N [facility] CenterManjjlpUVZOBIOJPX8487-03-57 22:55:00 Test Item Value Reference Range Interpretation Comments Segs (test code = Segs) 65.7 45.0-75.0 N [facility] CenterEgsaqckZPGMQRHSTY1381-76-53 22:55:00 Test Item Value Reference Range Interpretation Comments Lymphocytes # (test code = Lymphocytes 2.0 1.0-5.5 N #) [facility] CenterJugibjlAPZDVCIVIK2821-91-55 22:55:00 Test Item Value Reference Range Interpretation Comments Segs-Bands # (test code = Segs-Bands #) 5.7 1.5-8.1 N [facility] CenterBlxtzxgLAXTUYVJXY2411-21-68 22:55:00 Test Item Value Reference Range Interpretation Comments Basophils (test code = 0.7 See_Comment N [Aut omated message] The Basophils) system which ge nerated this result tra nsmitted reference range : <=1.0. The reference r jailene was not used to int erpret this result as normal/abnormal . [facility] CenterHlsbmkgOWKKZROXTR0838-04-17 22:55:00 Test Item Value Reference Range Interpretation Comments Eosinophils (test code = 2.2 See_Comment N [A utomated message] The Eosinophils) system which ge nerated this result tra nsmitted reference range : <=4.0. The reference r jailene was not used to int erpret this result as normal/abnormal . [facility] CenterUfhzwpjSANRQAKYAX3914-56-25 22:55:00 Test Item Value Reference Range Interpretation Comments Monocytes (test code = Monocytes) 8.9 2.0-12.0 N [facility] CenterUqyezbzBVBIPQPARH5104-83-25 22:55:00 Test Item Value Reference Range Interpretation Comments PTT (test code = PTT) 29.0 s 22.9-35.8 N [facility] CenterOskgnvoIGUVUIREWI7146-58-00 22:55:00 Test Item Value Reference Range Interpretation Comments PT (test code = PT) 12.2 s 12.0-14.7 N [facility] CenterQdknkwdVLCTMKYXTT7500-46-12 22:55:00 Test Item Value Reference Range Interpretation Comments INR (test code = INR) 0.88 0.85-1.17 N [facility] CenterZkdxlzcZTRODOLRHF6461-56-92 22:55:00 Test Item Value Reference Range Interpretation Comments MPV (test code = MPV) 9.4 7.4-10.4 N [facility] CenterBeiphgjCLYKHAVHJW1776-77-48 22:55:00 Test Item Value Reference Range Interpretation Comments RDW (test code = RDW) 13.1 11.5-14.5 N [facility] CenterMewriccOUSGYCHKRK1061-47-30 22:55:00 Test Item Value Reference Range Interpretation Comments Platelet (test code = Platelet) 295 133-450 N [facility] CenterQfvmvmlHPGMETOYTG6931-88-25 22:55:00 Test Item Value Reference Range Interpretation Comments MCV (test code = MCV) 90.3 81.0-99.0 N [facility] CenterEvqwdkfKEAADXTAIE9504-22-00 22:55:00 Test Item Value Reference Range Interpretation Comments MCH (test code = MCH) 29.5 pg 27.0-31.0 N [facility] CenterXoqujfzSAVCTKVBGD8362-81-71 22:55:00 Test Item Value Reference Range Interpretation Comments Hct (test code = Hct) 40.0 36.0-48.0 N [facility] CenterIvfdcrhLHDETKWHIE6140-77-37 22:55:00 Test Item Value Reference Range Interpretation Comments Hgb (test code = Hgb) 13.1 12.0-16.0 N [facility] CenterKrsvqkkOYXYHGHQGA7864-10-46 22:55:00 Test Item Value Reference Range Interpretation Comments MCHC (test code = MCHC) 32.7 32.0-36.0 N [facility] CenterQdnuqwqFXIYUGMGNV3323-20-93 22:55:00 Test Item Value Reference Range Interpretation Comments RBC (test code = RBC) 4.43 4.20-5.40 N [facility] CenterXhlcrtfUUHIDFIDCE9313-68-09 22:55:00 Test Item Value Reference Range Interpretation Comments WBC (test code = WBC) 8.7 3.7-10.4 N [facility] CenterYhbgrqbQZABEGWAFH2454-68-26 22:55:00 Test Item Value Reference Range Interpretation Comments D-Dimer (test code = D-Dimer) 0.55 [facility] HospitalEqvcfysGZGYQLNBIB6317-11-18 16:38:00 Test Item Value Reference Range Interpretation Comments UA Color (test code = UA Color) Ltyellow [facility] HospitalAnqpcfaHHHXENEEUB6471-47-09 16:38:00 Test Item Value Reference Range Interpretation Comments UA Urobilinogen (test code *NA*(07/05/2012 0.1-1.0 = UA Urobilinogen) 11:38:00) [facility] HospitalTceirdsPZLEPEWMAW0291-45-23 16:38:00 Test Item Value Reference Range Interpretation Comments UA WBC (test code = no gt See_Comment N [Automa evin message] The UA WBC) system which ge nerated this result transmit evin reference range : <=5. The reference range was not used to interpr et this result as kev l/abnormal. [facility] HospitalYpwswoqZTTXBYHSVS3768-21-44 16:38:00 Test Item Value Reference Range Interpretation Comments UA RBC (test code = 2 See_Comment N [Automa evin message] The UA RBC) system which ge nerated this result transmit evin reference range : <=2. The reference range was not used to interpr et this result as kev l/abnormal. [facility] HospitalOkbkldbKKUUOLEXIC4917-59-97 16:38:00 Test Item Value Reference Range Interpretation Comments UA Bili (test code = Negative *NA*(07/05/2012 UA Bili) 11:38:00) [facility] HospitalCbocmqqZOKMHUWPYP5743-17-30 16:38:00 Test Item Value Reference Range Interpretation Comments UA Spec Grav (test code = UA Spec Grav) 1.009 N [facility] HospitalEqpjvdcQDDRGXOIXB9430-13-86 16:38:00 Test Item Value Reference Range Interpretation Comments UA Blood (test code = Negative (07/05/2012 N UA Blood) 11:38:00) [facility] HospitalBeirbmwDAMHXQGBKF7160-83-41 16:38:00 Test Item Value Reference Range Interpretation Comments UA Glucose (test code Negative mg/dL = UA Glucose) *NA*(07/05/2012 11:38:00) [facility] HospitalQasxlcaEMVFYNBGYP0743-04-19 16:38:00 Test Item Value Reference Range Interpretation Comments UA Protein (test code Negative mg/dL N = UA Protein) (07/05/2012 11:38:00) [facility] HospitalJbcwzeuIBUELLPQRO8702-75-37 16:38:00 Test Item Value Reference Range Interpretation Comments UA pH (test code = UA pH) 8.0 5.0-8.0 N [facility] HospitalUnqykfrQLIQAWIPIC8828-19-53 16:38:00 Test Item Value Reference Range Interpretation Comments UA Nitrite (test code Negative (07/05/2012 N = UA Nitrite) 11:38:00) [facility] HospitalZgxqpuwIPUXRGFOPZ9505-14-79 16:38:00 Test Item Value Reference Range Interpretation Comments UA Sq Epi (test code Occasional /LPF = UA Sq Epi) *NA*(07/05/2012 11:38:00) [facility] HospitalThzaifyYAJEBJXJRP2691-12-00 16:38:00 Test Item Value Reference Range Interpretation Comments UA Leuk Est (test Negative (07/05/2012 N code = UA Leuk Est) 11:38:00) [facility] HospitalCscznhpONDCIRNOJY8241-52-72 16:38:00 Test Item Value Reference Range Interpretation Comments UA Ketones (test code Negative mg/dL = UA Ketones) *NA*(07/05/2012 11:38:00) [facility] HospitalBkrltjcXFCLXCMRPK3699-48-69 16:38:00 Test Item Value Reference Range Interpretation Comments UA Turbidity (test code = Clear (07/05/2012 N UA Turbidity) 11:38:00) [facility]lakePweggpsEJRTOSVXCC5004-98-34 15:37:00 Test Item Value Reference Range Interpretation Comments Sed Rate (test code = 30 See_Comment H [Auto mated message] The Sed Rate) system which ge nerated this result transmit evin reference range : <=20. The reference range was not used to interpr et this result as kev l/abnormal. [facility] CenterUfqfgpgDUDJWWIXAE7457-54-59 15:37:00 Test Item Value Reference Range Interpretation Comments dRVVT (test code = dRVVT) 48.0 s H [facility] CenterAxvinkeOVWNXLNDYF5938-91-77 15:37:00 Test Item Value Reference Range Interpretation Comments Hex Phos N (test code Negative (04/27/2012 N = Hex Phos N) 10:37:00) [facility] CenterZdqbnwhNNLQXQSYFR8754-27-89 15:37:00 Test Item Value Reference Range Interpretation Comments Lup Interp (test The DRVVT screen for lupus code = Lup Interp) anticoagulant is abnormal; however, the hexagonal phospholipid neutralization test is negative. Clinical correlation is recommended with additional testing, to include repeat DRVVT, factor assays, and anticardiolipin antibody assays if clinically indicated. Interpretation performed at [facility]. [facility]lakeTefvmjzJUIOLPYJXK0676-13-40 15:37:00 Test Item Value Reference Range Interpretation Comments CHANTEL (test code = CHANTEL) Negative (04/27/2012 N 10:37:00) [facility] HospitalFlwxvfzSGPWPXQYRY1557-32-87 15:37:00 Test Item Value Reference Range Interpretation Comments ROBINSON Ser Interp Serum immunofixation (test code = ROBINSON electrophoresis reveals a Ser Interp) polyclonal pattern of immunoglobulins. No monoclonal proteins are identified. Interpretation performed at [facility]. [facility] HospitalYhpmdpbFIESJCCZTU3236-84-39 15:37:00 Test Item Value Reference Range Interpretation Comments ROBINSON Ser Pattern (test code = ROBINSON Not provided Ser Pattern) [facility] HospitalLhyxmdnXJXLPVLYRR0098-63-55 15:37:00 Test Item Value Reference Range Interpretation Comments Tot Prot (SPE) (test code = Tot Prot 7.7 6.4-8.4 N (SPE)) [facility] HospitalNohyxyhJITQYTKUQW4012-32-25 15:37:00 Test Item Value Reference Range Interpretation Comments Beta Glob (test code = Beta Glob) 1.12 0.50-1.15 N [facility] HospitalBgtzuceRAURAXQBXW5580-72-87 15:37:00 Test Item Value Reference Range Interpretation Comments Alpha 1 % (test code = Alpha 1 %) 3.6 2.8-4.9 N [facility] HospitalUplcehnHZVGSTIHLB1512-59-42 15:37:00 Test Item Value Reference Range Interpretation Comments Gamma Glob (test code = Gamma Glob) 1.36 0.71-1.57 N [facility] HospitalHywmwuzNTNCGAVAOE6842-10-36 15:37:00 Test Item Value Reference Range Interpretation Comments Albumin (SPE) (test code = Albumin 4.07 3.57-5.55 N (SPE)) [facility] HospitalTyxzhspFPMGHVRBHQ6793-50-60 15:37:00 Test Item Value Reference Range Interpretation Comments SPE Interp (test Total protein and serum code = SPE Interp) albumin levels are within reference ranges. All globulin fractions are present in a normal distribution. No monoclonal proteins are identified. Serum capillary electrophoresis is without significant abnormalities. Interpretation performed at [facility]. [facility] HospitalEdvdkgvKVQWEYLJPG4681-47-98 15:37:00 Test Item Value Reference Range Interpretation Comments Alpha 1 Glob (test code = Alpha 1 Glob) 0.28 0.18-0.41 N [facility] HospitalXsrdlwyPIPDTJKJDV0205-85-66 15:37:00 Test Item Value Reference Range Interpretation Comments Beta % (test code = Beta %) 14.5 7.8-13.7 H [facility] HospitalVrlfjcoFUKLEWWQFS1080-42-08 15:37:00 Test Item Value Reference Range Interpretation Comments Alpha 2 % (test code = Alpha 2 %) 11.4 7.0-11.9 N [facility]YfnesmoPSWDASLHKG1164-07-67 15:37:00 Test Item Value Reference Range Interpretation Comments Albumin % (test code = Albumin %) 52.8 55.8-66.1 L [facility] HospitalHjpgudaUYWUXQAGVV2655-38-92 15:37:00 Test Item Value Reference Range Interpretation Comments Gamma % (test code = Gamma %) 17.7 11.1-18.7 N [facility] HospitalAbsjkdiINZWGTQNDN5189-49-09 15:37:00 Test Item Value Reference Range Interpretation Comments Alpha 2 Glob (test code = Alpha 2 Glob) 0.88 0.45-1.00 N [facility]HoidspwGRUSZWHRI1527-72-13 11:22:00 Test Item Value Reference Range Interpretation Comments Chloride Lvl (test code = Chloride Lvl) 101 95-109 N [facility] RegionalSqmklnePJFYERCNR8048-71-80 11:22:00 Test Item Value Reference Range Interpretation Comments Potassium Lvl (test code = Potassium 4.2 3.5-5.1 N Lvl) [facility] RegionalTxdxwojJRJWBGPDT5509-87-58 11:22:00 Test Item Value Reference Range Interpretation Comments Sodium Lvl (test code = Sodium Lvl) 139 135-145 N [facility] RegionalDxtjizyQLCHDWCFF4555-01-57 11:22:00 Test Item Value Reference Range Interpretation Comments eGFR (test code = eGFR) 111 [facility] RegionalSyoibzxBLMMQXKXF4763-82-91 11:22:00 Test Item Value Reference Range Interpretation Comments ALT (test code = ALT) 35 See_Comment N [Auto mated message] The system which ge nerated this result transmit evin reference range : <=65. The reference range was not used to interpr et this result as kev l/abnormal. [facility] RegionalAnmlinnNLAAEPDLK1456-93-31 11:22:00 Test Item Value Reference Range Interpretation Comments Alk Phos (test code = Alk Phos) 90 39-136 N [facility] RegionalQepyebdLZOXMBBSE7708-47-82 11:22:00 Test Item Value Reference Range Interpretation Comments Bili Total (test code = Bili Total) 0.3 0.2-1.3 N [facility] RegionalFhnjunlIMYQIQKRS6244-74-80 11:22:00 Test Item Value Reference Range Interpretation Comments AST (test code = AST) 21 See_Comment N [Auto mated message] The system which ge nerated this result transmit evin reference range : <=37. The reference range was not used to interpr et this result as kev l/abnormal. [facility] RegionalTitiirgHGYMKRZBF4563-34-02 11:22:00 Test Item Value Reference Range Interpretation Comments Albumin Lvl (test code = Albumin Lvl) 3.4 3.5-5.0 L [facility] RegionalJmkdgldMXOLETISQ0466-15-54 11:22:00 Test Item Value Reference Range Interpretation Comments CO2 (test code = CO2) 31 24-32 N [facility]GbjdmuhLHFNVYAJA7861-11-07 11:22:00 Test Item Value Reference Range Interpretation Comments Calcium Lvl (test code = Calcium Lvl) 8.9 8.5-10.5 N [facility] RegionalOuxgeefEMGRMKVMM3555-56-88 11:22:00 Test Item Value Reference Range Interpretation Comments Total Protein (test code = Total 7.6 6.4-8.4 N Protein) [facility] RegionalHbjjfmsEBGCELDKP5950-06-37 11:22:00 Test Item Value Reference Range Interpretation Comments Glucose Lvl (test code = Glucose Lvl) 93 70-99 N [facility] RegionalOywtajwRSAAJDEZD2776-93-92 11:22:00 Test Item Value Reference Range Interpretation Comments BUN (test code = BUN) 6 7-22 L [facility] RegionalVewutwaTWKUTLPRX5490-77-02 11:22:00 Test Item Value Reference Range Interpretation Comments Creatinine Lvl (test code = Creatinine 0.7 0.5-1.4 N Lvl) [facility] RegionalQihbwhvKJDCXPSXT7878-52-83 11:22:00 Test Item Value Reference Range Interpretation Comments B/C Ratio (test code = B/C Ratio) 9 6-25 N [facility] RegionalSdpefitZBMMXUTUN1955-09-40 11:22:00 Test Item Value Reference Range Interpretation Comments Globulin (test code = Globulin) 4.2 2.0-4.0 H [facility] RegionalNnelssjPOQADITDV2404-86-70 11:22:00 Test Item Value Reference Range Interpretation Comments A/G Ratio (test code = A/G Ratio) 0.8 0.7-1.6 N [facility] RegionalUietvubNIRHSNGCX3342-36-39 11:22:00 Test Item Value Reference Range Interpretation Comments AGAP (test code = AGAP) 11.2 10.0-20.0 N [facility] CenterYukakjdGGOQVLZSXK3178-36-59 11:22:00 Test Item Value Reference Range Interpretation Comments Basophils # (test code 0.1 See_Comment N [Aut omated message] The = Basophils #) system which generated this result tra nsmitted reference range : <=0.2. The reference r jailene was not used to int erpret this result as normal/abnormal . [facility] CenterVfzhobuBSUKGYJYPG8720-93-61 11:22:00 Test Item Value Reference Range Interpretation Comments Eosinophils # (test code 0.3 See_Comment N [A utomated message] The = Eosinophils #) system whic h generated this result tra nsmitted reference range : <=0.5. The reference r jailene was not used to int erpret this result as normal/abnormal . [facility] CenterDgxaddvTHWAWGNDJF9011-51-42 11:22:00 Test Item Value Reference Range Interpretation Comments Monocytes # (test code 1.1 See_Comment H [Aut omated message] The = Monocytes #) system which generated this result tra nsmitted reference range : <=0.8. The reference r jailene was not used to int erpret this result as normal/abnormal . [facility] CenterBqanberJCMWXPYJOS8653-80-40 11:22:00 Test Item Value Reference Range Interpretation Comments Eosinophils (test code = 2.3 See_Comment N [A utomated message] The Eosinophils) system which ge nerated this result tra nsmitted reference range : <=4.0. The reference r jailene was not used to int erpret this result as normal/abnormal . [facility] CenterHnpueiuIHLQMHGRFR0478-55-88 11:22:00 Test Item Value Reference Range Interpretation Comments Lymphocytes # (test code = Lymphocytes 3.3 1.0-5.5 N #) [facility] CenterSogpinkBUPDYBUHRQ5287-18-81 11:22:00 Test Item Value Reference Range Interpretation Comments Segs-Bands # (test code = Segs-Bands #) 8.6 1.5-8.1 H [facility] CenterDnxtxjyXCOMXXIBSO9716-99-22 11:22:00 Test Item Value Reference Range Interpretation Comments Basophils (test code = 0.7 See_Comment N [Aut omated message] The Basophils) system which ge nerated this result tra nsmitted reference range : <=1.0. The reference r jailene was not used to int erpret this result as normal/abnormal . [facility] CenterVrahntzRBYZXUSPCZ7918-52-10 11:22:00 Test Item Value Reference Range Interpretation Comments Monocytes (test code = Monocytes) 8.2 2.0-12.0 N [facility] CenterExcnooqKZRRFEFRXM6057-30-67 11:22:00 Test Item Value Reference Range Interpretation Comments Lymphocytes (test code = Lymphocytes) 24.7 20.0-40.0 N [facility] CenterRkwpjfaRNZPZWRXZT9534-79-02 11:22:00 Test Item Value Reference Range Interpretation Comments Segs (test code = Segs) 64.1 45.0-75.0 N [facility] CenterXqoqcnrTVYMYUGWSG9233-26-22 11:22:00 Test Item Value Reference Range Interpretation Comments RBC Morph (test code = Normal (04/27/2012 N RBC Morph) 06:22:00) [facility] CenterGutzqsbELFYAMWUHU8615-67-37 11:22:00 Test Item Value Reference Range Interpretation Comments Plt Morph (test code = Normal (04/27/2012 N Plt Morph) 06:22:00) [facility] CenterEuzgoxxKCZBRRUKMT4335-96-53 11:22:00 Test Item Value Reference Range Interpretation Comments INR (test code = INR) 2.82 0.85-1.17 H [facility] CenterSlkkctgLSUOYZATGV9947-45-58 11:22:00 Test Item Value Reference Range Interpretation Comments PT (test code = PT) 29.6 s 12.0-14.7 H [facility] CenterNrcxvbmOHJHPQQDZD5562-64-97 11:22:00 Test Item Value Reference Range Interpretation Comments RDW (test code = RDW) 13.2 11.5-14.5 N [facility] CenterOnesipqTJJRKVYKUF5858-00-93 11:22:00 Test Item Value Reference Range Interpretation Comments Platelet (test code = Platelet) 254 133-450 N [facility] CenterJgvolpeITJKSVSPYG3116-54-37 11:22:00 Test Item Value Reference Range Interpretation Comments MPV (test code = MPV) 9.4 7.4-10.4 N [facility] CenterLbmcxhdMDFQQZGOZX5966-74-62 11:22:00 Test Item Value Reference Range Interpretation Comments Hgb (test code = Hgb) 12.5 12.0-16.0 N [facility] CenterJwxrfpsWRWJXLWWHE8228-92-42 11:22:00 Test Item Value Reference Range Interpretation Comments Hct (test code = Hct) 37.3 36.0-48.0 N [facility] CenterUitdrnnBHVEEEHJYE5649-75-80 11:22:00 Test Item Value Reference Range Interpretation Comments MCV (test code = MCV) 91.1 81.0-99.0 N [facility] CenterLwjmkfeBZKMVHMWUF5305-25-31 11:22:00 Test Item Value Reference Range Interpretation Comments MCH (test code = MCH) 30.5 pg 27.0-31.0 N [facility] CenterAbiryloXNWOWOSWRU4559-75-95 11:22:00 Test Item Value Reference Range Interpretation Comments MCHC (test code = MCHC) 33.5 32.0-36.0 N [facility] CenterWlevacmNEJFKVOMGS1941-31-76 11:22:00 Test Item Value Reference Range Interpretation Comments WBC (test code = WBC) 13.3 3.7-10.4 H [facility] CenterNkjpnlnWLANUTONDC0297-99-19 11:22:00 Test Item Value Reference Range Interpretation Comments RBC (test code = RBC) 4.10 4.20-5.40 L [facility] HospitalWixcawyIAXYPKAPHN7346-59-35 18:40:00 Test Item Value Reference Range Interpretation Comments UA Urobilinogen (test code *NA*(04/26/2012 0.1-1.0 = UA Urobilinogen) 13:40:00) [facility] HospitalJtlulyaEWQQSGFTET6839-87-83 18:40:00 Test Item Value Reference Range Interpretation Comments UA Color (test code = UA Color) Ltyellow [facility] HospitalQdwatyfFPLFWBTELN4090-82-66 18:40:00 Test Item Value Reference Range Interpretation Comments UA Nitrite (test code Negative (04/26/2012 N = UA Nitrite) 13:40:00) [facility] HospitalAohyxypQMDLKQSWAT5861-34-58 18:40:00 Test Item Value Reference Range Interpretation Comments UA Sq Epi (test code Occasional /LPF = UA Sq Epi) *NA*(04/26/2012 13:40:00) [facility] HospitalMorrmzjZOTYSPLYQN9527-12-28 18:40:00 Test Item Value Reference Range Interpretation Comments UA Blood (test code = Small *ABN*(04/26/2012 A UA Blood) 13:40:00) [facility] HospitalBoafwliRVQQMJVVBV1782-64-52 18:40:00 Test Item Value Reference Range Interpretation Comments UA RBC (test code = 2 See_Comment N [Automa evin message] The UA RBC) system which ge nerated this result transmit evin reference range : <=2. The reference range was not used to interpr et this result as kev l/abnormal. [facility] HospitalBjirdofBXDQDHGHMU8192-65-50 18:40:00 Test Item Value Reference Range Interpretation Comments UA WBC (test code = 1 See_Comment N [Automa evin message] The UA WBC) system which ge nerated this result transmit evin reference range : <=5. The reference range was not used to interpr et this result as kev l/abnormal. [facility] HospitalSfjgckvLANNVLACEY3066-70-77 18:40:00 Test Item Value Reference Range Interpretation Comments UA Ketones (test code Negative mg/dL = UA Ketones) *NA*(04/26/2012 13:40:00) [facility] HospitalSyvbkrfYYNAANQXNI6112-08-55 18:40:00 Test Item Value Reference Range Interpretation Comments UA Glucose (test code Negative mg/dL = UA Glucose) *NA*(04/26/2012 13:40:00) [facility] HospitalQtiqujnGTRFHSDGRN2273-40-38 18:40:00 Test Item Value Reference Range Interpretation Comments UA Leuk Est (test Negative (04/26/2012 N code = UA Leuk Est) 13:40:00) [facility] HospitalThdrrytQXRCDWOXVJ0434-41-75 18:40:00 Test Item Value Reference Range Interpretation Comments UA Protein (test code Negative mg/dL N = UA Protein) (04/26/2012 13:40:00) [facility] HospitalBcthtegEMNSFNCHLT9506-30-06 18:40:00 Test Item Value Reference Range Interpretation Comments UA Bili (test code = Negative *NA*(04/26/2012 UA Bili) 13:40:00) [facility] HospitalRgdgeorOYGATRIANO5292-25-85 18:40:00 Test Item Value Reference Range Interpretation Comments UA Spec Grav (test code = UA Spec Grav) 1.011 N [facility] HospitalAzqlurbJYHLYHNHDA5034-86-90 18:40:00 Test Item Value Reference Range Interpretation Comments UA Turbidity (test code = Clear (04/26/2012 N UA Turbidity) 13:40:00) [facility] HospitalFsybecyRMWPINPSKI2164-54-28 18:40:00 Test Item Value Reference Range Interpretation Comments UA pH (test code = UA pH) 6.0 5.0-8.0 N [facility] CenterVhtskaaKDHAEAYHTV1902-08-40 08:48:00 Test Item Value Reference Range Interpretation Comments PT (test code = PT) 24.3 s 12.0-14.7 H [facility] CenterUkkfaqfMRQOLJVIDN3886-89-14 08:48:00 Test Item Value Reference Range Interpretation Comments INR (test code = INR) 2.18 0.85-1.17 H [facility] CenterRlagwgsQCGFTSPQMI9336-04-48 08:48:00 Test Item Value Reference Range Interpretation Comments MPV (test code = MPV) 9.9 7.4-10.4 N [facility] CenterDeyeixfDQXNMCZVVV0956-38-75 08:48:00 Test Item Value Reference Range Interpretation Comments Hgb (test code = Hgb) 12.8 12.0-16.0 N [facility] CenterIztjkjdDKBYCECFNF5186-82-85 08:48:00 Test Item Value Reference Range Interpretation Comments RBC (test code = RBC) 4.20 4.20-5.40 N [facility] CenterJpalablCKZCICJTZO4657-05-13 08:48:00 Test Item Value Reference Range Interpretation Comments MCHC (test code = MCHC) 32.8 32.0-36.0 N [facility] CenterChqsykyTCFJQOSWPO6525-68-51 08:48:00 Test Item Value Reference Range Interpretation Comments RDW (test code = RDW) 12.6 11.5-14.5 N [facility] CenterRufsejqBWYBEBPVHJ9365-27-40 08:48:00 Test Item Value Reference Range Interpretation Comments Platelet (test code = Platelet) 267 133-450 N [facility] CenterUzvclojBLTZPMUGBT1233-74-83 08:48:00 Test Item Value Reference Range Interpretation Comments MCH (test code = MCH) 30.4 pg 27.0-31.0 N [facility] CenterSjxwiqyXTZUXXYAMB6461-50-50 08:48:00 Test Item Value Reference Range Interpretation Comments Hct (test code = Hct) 38.9 36.0-48.0 N [facility] CenterMpkwhyeGWSKBBMGIX5769-87-38 08:48:00 Test Item Value Reference Range Interpretation Comments MCV (test code = MCV) 92.5 81.0-99.0 N [facility] CenterEtbetlbRBMNEDESQV2543-80-53 08:48:00 Test Item Value Reference Range Interpretation Comments WBC (test code = WBC) 14.0 3.7-10.4 H [facility] CenterAawgwhwVTGCFVEIEC4775-89-00 08:48:00 Test Item Value Reference Range Interpretation Comments Monocytes (test code = Monocytes) 7.1 2.0-12.0 N [facility] CenterEsoccpcPWRFDCLPCL8058-72-86 08:48:00 Test Item Value Reference Range Interpretation Comments Eosinophils (test code = 1.6 See_Comment N [A utomated message] The Eosinophils) system which ge nerated this result tra nsmitted reference range : <=4.0. The reference r jailene was not used to int erpret this result as normal/abnormal . [facility] CenterJulwmvrBPAPEVCODY8742-19-64 08:48:00 Test Item Value Reference Range Interpretation Comments Lymphocytes (test code = Lymphocytes) 27.6 20.0-40.0 N [facility] CenterYhiqiucBCSCDDRNQY8048-78-04 08:48:00 Test Item Value Reference Range Interpretation Comments Segs (test code = Segs) 63.3 45.0-75.0 N [facility] CenterPtriskuQNIAOCVQEU1707-75-62 08:48:00 Test Item Value Reference Range Interpretation Comments Segs-Bands # (test code = Segs-Bands #) 8.9 1.5-8.1 H [facility] CenterHarftmiQWQWTKDQMG9654-81-06 08:48:00 Test Item Value Reference Range Interpretation Comments Basophils (test code = 0.4 See_Comment N [Aut omated message] The Basophils) system which ge nerated this result tra nsmitted reference range : <=1.0. The reference r jailene was not used to int erpret this result as normal/abnormal . [facility] CenterJwkbuvzOALEKBIJIO2769-04-33 08:48:00 Test Item Value Reference Range Interpretation Comments Lymphocytes # (test code = Lymphocytes 3.9 1.0-5.5 N #) [facility] CenterRzxppmeUJUSEURQCT4509-68-91 08:48:00 Test Item Value Reference Range Interpretation Comments Eosinophils # (test code 0.2 See_Comment N [A utomated message] The = Eosinophils #) system whic h generated this result tra nsmitted reference range : <=0.5. The reference r jailene was not used to int erpret this result as normal/abnormal . [facility] CenterWxrfvvaIYXQHXNGBF9074-74-39 08:48:00 Test Item Value Reference Range Interpretation Comments Monocytes # (test code 1.0 See_Comment H [Aut omated message] The = Monocytes #) system which generated this result tra nsmitted reference range : <=0.8. The reference r jailene was not used to int erpret this result as normal/abnormal . [facility] CenterBxjpfbjBJTRAIJHPS1785-12-33 08:48:00 Test Item Value Reference Range Interpretation Comments Basophils # (test code 0.1 See_Comment N [Aut omated message] The = Basophils #) system which generated this result tra nsmitted reference range : <=0.2. The reference r jailene was not used to int erpret this result as normal/abnormal . [facility]QcdbrjeSJFUENXAP1963-29-34 22:06:00 Test Item Value Reference Range Interpretation Comments Total CK (test code = Total CK) 92 12-191 N [facility] CenterZujgzhxGRWACSLDUL1064-13-67 10:47:00 Test Item Value Reference Range Interpretation Comments PT (test code = PT) 25.5 s 12.0-14.7 H [facility] CenterDrxyuwsCJTKILWTHN0542-60-74 10:47:00 Test Item Value Reference Range Interpretation Comments INR (test code = INR) 2.32 0.85-1.17 H [facility] CenterEssrkftUIRKTLJSHL0365-92-39 10:47:00 Test Item Value Reference Range Interpretation Comments PTT (test code = PTT) 67.2 s 22.9-35.8 H [facility] CenterDuidqxeUOLYTTORXR8959-82-47 10:47:00 Test Item Value Reference Range Interpretation Comments MCH (test code = MCH) 30.5 pg 27.0-31.0 N [facility] CenterMebacqtLUIILSBSWX5413-75-33 10:47:00 Test Item Value Reference Range Interpretation Comments Platelet (test code = Platelet) 257 133-450 N [facility] CenterQkzitdoVFQIGSIDLM9846-41-40 10:47:00 Test Item Value Reference Range Interpretation Comments MCHC (test code = MCHC) 33.5 32.0-36.0 N [facility] CenterHcrfmedHCBGUPPPVX6762-10-70 10:47:00 Test Item Value Reference Range Interpretation Comments RDW (test code = RDW) 12.9 11.5-14.5 N [facility] CenterPnfhxzaBAKWOVNQQG6321-35-58 10:47:00 Test Item Value Reference Range Interpretation Comments MCV (test code = MCV) 90.9 81.0-99.0 N [facility] CenterZstpzrcWXRIYCICVX5760-23-78 10:47:00 Test Item Value Reference Range Interpretation Comments MPV (test code = MPV) 9.3 7.4-10.4 N [facility] CenterThfrkcjLVKUZBGGNG6051-32-83 10:47:00 Test Item Value Reference Range Interpretation Comments Hgb (test code = Hgb) 12.4 12.0-16.0 N [facility] CenterEskdohbKJHXTNTVAA2925-38-36 10:47:00 Test Item Value Reference Range Interpretation Comments Hct (test code = Hct) 37.1 36.0-48.0 N [facility] CenterEkqqnmgYCNBUTGGOU9954-94-83 10:47:00 Test Item Value Reference Range Interpretation Comments WBC (test code = WBC) 12.3 3.7-10.4 H [facility] CenterMstnczaCSYTFQMGID9298-38-39 10:47:00 Test Item Value Reference Range Interpretation Comments RBC (test code = RBC) 4.08 4.20-5.40 L [facility] CenterQjnemneAQISCGLHIG0442-66-34 10:47:00 Test Item Value Reference Range Interpretation Comments Eosinophils # (test code 0.2 See_Comment N [A utomated message] The = Eosinophils #) system ic h generated this result tra nsmitted reference range : <=0.5. The reference r jailene was not used to int erpret this result as normal/abnormal . [facility] CenterDaplrmwJRKTUAHVYL3796-70-62 10:47:00 Test Item Value Reference Range Interpretation Comments Basophils # (test code 0.0 See_Comment N [Aut omated message] The = Basophils #) system which generated this result tra nsmitted reference range : <=0.2. The reference r jailene was not used to int erpret this result as normal/abnormal . [facility] CenterSpzswmtIKGRFRIAHZ7474-10-03 10:47:00 Test Item Value Reference Range Interpretation Comments Lymphocytes # (test code = Lymphocytes 3.6 1.0-5.5 N #) [facility] CenterYimocruIPNAASYXON5711-54-30 10:47:00 Test Item Value Reference Range Interpretation Comments Monocytes # (test code 0.9 See_Comment H [Aut omated message] The = Monocytes #) system which generated this result tra nsmitted reference range : <=0.8. The reference r jailene was not used to int erpret this result as normal/abnormal . [facility] CenterJpotuvaLFQKTYZVPZ2825-92-24 10:47:00 Test Item Value Reference Range Interpretation Comments Segs (test code = Segs) 61.2 45.0-75.0 N [facility] CenterRnxjyzqWQUHPAHXGO6332-80-88 10:47:00 Test Item Value Reference Range Interpretation Comments Segs-Bands # (test code = Segs-Bands #) 7.5 1.5-8.1 N [facility] CenterFkomexuEQSGWXEJJC3129-57-60 10:47:00 Test Item Value Reference Range Interpretation Comments Basophils (test code = 0.4 See_Comment N [Aut omated message] The Basophils) system which ge nerated this result tra nsmitted reference range : <=1.0. The reference r jailene was not used to int erpret this result as normal/abnormal . [facility] CenterYlyuchoBLTSNAXIOW8565-78-20 10:47:00 Test Item Value Reference Range Interpretation Comments Lymphocytes (test code = Lymphocytes) 29.1 20.0-40.0 N [facility] CenterCngfmhgWBYSUSGGGV8624-57-07 10:47:00 Test Item Value Reference Range Interpretation Comments Monocytes (test code = Monocytes) 7.6 2.0-12.0 N [facility] CenterGgispvwAPQYJJFAVY0002-31-58 10:47:00 Test Item Value Reference Range Interpretation Comments Eosinophils (test code = 1.7 See_Comment N [A utomated message] The Eosinophils) system which ge nerated this result tra nsmitted reference range : <=4.0. The reference r jailene was not used to int erpret this result as normal/abnormal . [facility] CenterVvsafqrIMFHHVZCDT2271-55-59 12:32:00 Test Item Value Reference Range Interpretation Comments PTT (test code = PTT) 47.9 s 22.9-35.8 H [facility] CenterFawzeppNSAXMUQWZC3692-82-18 20:57:00 Test Item Value Reference Range Interpretation Comments Protein C Func (test code = Protein C 42 72-147 L Func) [facility] CenterCbwigneHOMGIYXSVZ6435-81-46 20:57:00 Test Item Value Reference Range Interpretation Comments Protein S Func (test code = Protein S 74 54-137 N Func) [facility] CenterJjoeifnIEHWVTXNBX5760-42-17 20:57:00 Test Item Value Reference Range Interpretation Comments Hex Phos N (test code Positive (04/23/2012 N = Hex Phos N) 14:57:00) [facility] CenterMxqvffaPLEAUTHACS9770-29-00 20:57:00 Test Item Value Reference Range Interpretation Comments dRVVT (test code = dRVVT) 41.5 s N [facility] CenterObdfkjmLWDAPJVBBS4226-61-42 20:57:00 Test Item Value Reference Range Interpretation Comments Lup Interp (test The DRVV screen for lupus code = Lup Interp) anticoagulant is within normal limits. However, the hexagonal phospholipid neutralization (HPN) test is positive, suggesting the presence of a lupus anticoagulant. Clinical correlation is recommended as transiently positive and false positive results may be observed and these tests may be invalid for patients on anticoagulant therapy. If clinically indicated, additional testing to include repeat DRVV and HPN tests at a clinically appropriate interval, factor assays if appropriate, and anticardiolipin antibody assays is recommended. Interpretation performed at [facility]. [facility]HxygpdoKOFEGXSOKO2511-45-05 20:57:00 Test Item Value Reference Range Interpretation Comments F5 Leiden Intrp FACTOR V LEIDEN: Negative (test code = F5 INTERPRETATION: Leiden Intrp) Molecular analysis for the Factor V Leiden, [id number] mutation was negative. Other causes of activated protein C resistance and hereditary forms of venous thrombosis are not ruled out. Final diagnosis required correlation with clinical history and other pertinent laboratory findings. Where appropriate, medical consultation and/or genetic counseling should be offered to inform and explain the risk implications and genetic implications of these test results. CPT: 97453 ASSAY LIMITATIONS: The assay uses the FDA-cleared Shirin Factor V Leiden IVD(Poymerase chain reaction/FRET detection), Shirin Magikflix LC Instrument as well as Shirin LightCycler 1.2 Instrument. A 222-bp fragment of Factor V gene (FV) containing the Factor V Leiden sequence is amplified in the assay. The assay is designed to detect the G [id number] mutation only. Other causes of activated protein C resistance and hereditary forms of venous thrombosis are to ruled out. However,the melting curve analysis may implicate the presence of possible rare mutations at position. 1689, 1692 and 1696 (further testing will be recommended in the report). A minimum detection level is 202 copies of Factor V Leiden per reaction. The level of agreement between the Factor V Leiden Kit and sequence analysis was 99.4%. The test result must be interpreted along with the patient's clinical history and other pertinent laboratory data.This assay has been validated by [facility]. [facility]lakeEwewvhoGMNNGWVNCH7826-64-67 20:57:00 Test Item Value Reference Range Interpretation Comments F5 Leiden PCR (test Negative (04/23/2012 N code = F5 Leiden PCR) 14:57:00) [facility]JgukkdnGGQPGEANME4064-32-16 20:57:00 Test Item Value Reference Range Interpretation Comments Homocyst Tot (test code = Homocyst Tot) 4.5 3.7-13.9 N [facility]lakeFcmwybbFLZBXHGGHZ5469-84-18 20:57:00 Test Item Value Reference Range Interpretation Comments Cardiolipin IgG (test code = 3 Cardiolipin IgG) [facility]lakeKsovouiCGJKMWTCIP4280-87-30 20:57:00 Test Item Value Reference Range Interpretation Comments Cardiolipin IgM (test code = 6.1 Cardiolipin IgM) [facility]UwgigriPAGWDWAMRN9929-31-62 20:57:00 Test Item Value Reference Range Interpretation Comments Cardiolipin IgA (test code = 1 Cardiolipin IgA) [facility] RegionalWwqskldVWLLCHUUL6714-72-00 11:56:00 Test Item Value Reference Range Interpretation Comments AGAP (test code = AGAP) 13.0 10.0-20.0 N [facility] RegionalQhffovxLISPLMBHN3198-40-85 11:56:00 Test Item Value Reference Range Interpretation Comments Chloride Lvl (test code = Chloride Lvl) 103 95-109 N [facility] RegionalGzpxlqqTIKTUGZFI4937-05-74 11:56:00 Test Item Value Reference Range Interpretation Comments Sodium Lvl (test code = Sodium Lvl) 140 135-145 N [facility] RegionalImehfpfYUQXDVCBJ5479-30-23 11:56:00 Test Item Value Reference Range Interpretation Comments Potassium Lvl (test code = Potassium 4.0 3.5-5.1 N Lvl) [facility] RegionalIjsplwrNYWHECRHZ0478-69-72 11:56:00 Test Item Value Reference Range Interpretation Comments eGFR (test code = eGFR) 111 [facility] RegionalSiikkvdABSMZIXNI7796-56-02 11:56:00 Test Item Value Reference Range Interpretation Comments BUN (test code = BUN) 4 7-22 L [facility] RegionalMzlysgjQTDZXHPDU8587-15-58 11:56:00 Test Item Value Reference Range Interpretation Comments Glucose Lvl (test code = Glucose Lvl) 95 70-99 N [facility] RegionalXntfscnISINCSGZS0916-70-30 11:56:00 Test Item Value Reference Range Interpretation Comments CO2 (test code = CO2) 28 24-32 N [facility] RegionalMtuwblzZYRDUZOBQ1868-19-45 11:56:00 Test Item Value Reference Range Interpretation Comments Calcium Lvl (test code = Calcium Lvl) 9.1 8.5-10.5 N [facility] RegionalLhosupnSIPDHQDMY5282-58-43 11:56:00 Test Item Value Reference Range Interpretation Comments Creatinine Lvl (test code = Creatinine 0.7 0.5-1.4 N Lvl) [facility] CenterNehjadkOFPZJEFEPZ8456-44-78 11:56:00 Test Item Value Reference Range Interpretation Comments PTT (test code = PTT) 46.1 s 22.9-35.8 H [facility] RegionalKsgchrxJDOKGUBCE0316-12-62 03:23:00 Test Item Value Reference Range Interpretation Comments AGAP (test code = AGAP) 10.8 10.0-20.0 N [facility] RegionalUedvmbdLTJEVXJBE2405-25-90 03:23:00 Test Item Value Reference Range Interpretation Comments eGFR (test code = eGFR) 111 [facility] RegionalLxzykxiWJDKBKNBG1066-09-15 03:23:00 Test Item Value Reference Range Interpretation Comments BUN (test code = BUN) 6 7-22 L [facility] RegionalFwhpgifWDVVFHFOJ6820-87-33 03:23:00 Test Item Value Reference Range Interpretation Comments Sodium Lvl (test code = Sodium Lvl) 139 135-145 N [facility] RegionalEnibdhmTEUXYVPZR3459-91-09 03:23:00 Test Item Value Reference Range Interpretation Comments Creatinine Lvl (test code = Creatinine 0.7 0.5-1.4 N Lvl) [facility] RegionalCnaiovvIVRZKGESF8815-63-11 03:23:00 Test Item Value Reference Range Interpretation Comments Potassium Lvl (test code = Potassium 3.8 3.5-5.1 N Lvl) [facility] RegionalGbhejabNXTMWIPIS6242-15-04 03:23:00 Test Item Value Reference Range Interpretation Comments Calcium Lvl (test code = Calcium Lvl) 9.1 8.5-10.5 N [facility] RegionalFlrpeteCUVKPAZGA8463-98-32 03:23:00 Test Item Value Reference Range Interpretation Comments Chloride Lvl (test code = Chloride Lvl) 104 95-109 N [facility] RegionalPkoanfbZUIQQGRQM1054-81-65 03:23:00 Test Item Value Reference Range Interpretation Comments CO2 (test code = CO2) 28 24-32 N [facility] RegionalRisqvryQJDFWRFDA1071-76-48 03:23:00 Test Item Value Reference Range Interpretation Comments Glucose Lvl (test code = Glucose Lvl) 102 70-99 H [facility]YdctrvqSTKVROAFPS6975-01-49 03:23:00 Test Item Value Reference Range Interpretation Comments CDC-HIV 1/2 Ab (test Negative *NA*(04/20/2012 code = CDC-HIV 1/2 21:23:00) Ab) [facility] RegionalPnrqyhiLXULFHPYO8584-33-99 03:19:00 Test Item Value Reference Range Interpretation Comments U Preg (test code = U Negative (04/20/2012 N Preg) 21:19:00) [facility] RegionalAtoctuiIXHQNZGUX8845-37-97 12:42:00 Test Item Value Reference Range Interpretation Comments eGFR (test code = eGFR) 111 [facility] RegionalPjsbnytYCSEWRSCT0082-55-91 12:42:00 Test Item Value Reference Range Interpretation Comments Chloride Lvl (test code = Chloride Lvl) 104 95-109 N [facility] RegionalOhjshmdDNGMFCWZX4447-27-03 12:42:00 Test Item Value Reference Range Interpretation Comments Potassium Lvl (test code = Potassium 3.6 3.5-5.1 N Lvl) [facility] RegionalMqqpmsvIMDUWRJRL7695-65-74 12:42:00 Test Item Value Reference Range Interpretation Comments Calcium Lvl (test code = Calcium Lvl) 8.9 8.5-10.5 N [facility] RegionalXgeljhtUASDFURIT1274-71-91 12:42:00 Test Item Value Reference Range Interpretation Comments Sodium Lvl (test code = Sodium Lvl) 138 135-145 N [facility] RegionalUmnuihjYYGJKAXDN1965-43-51 12:42:00 Test Item Value Reference Range Interpretation Comments Creatinine Lvl (test code = Creatinine 0.7 0.5-1.4 N Lvl) [facility] RegionalSeggachZNJQMXWLN3810-74-92 12:42:00 Test Item Value Reference Range Interpretation Comments Bili Total (test code = Bili Total) 0.3 0.2-1.3 N [facility] RegionalDraezyaMAMFNXHBK8174-79-71 12:42:00 Test Item Value Reference Range Interpretation Comments AST (test code = AST) 22 See_Comment N [Auto mated message] The system which ge nerated this result transmit evin reference range : <=37. The reference range was not used to interpr et this result as kev l/abnormal. [facility] RegionalVakmrhsMPXDHGJYK7930-21-80 12:42:00 Test Item Value Reference Range Interpretation Comments Alk Phos (test code = Alk Phos) 95 39-136 N [facility] RegionalEldgvjnZNAASCDAM6667-91-32 12:42:00 Test Item Value Reference Range Interpretation Comments BUN (test code = BUN) 5 7-22 L [facility] RegionalGmbmvfnDVGCMPBRD9469-32-89 12:42:00 Test Item Value Reference Range Interpretation Comments CO2 (test code = CO2) 26 24-32 N [facility] RegionalIgniyxhRRBKLKEAO5802-06-32 12:42:00 Test Item Value Reference Range Interpretation Comments ALT (test code = ALT) 27 See_Comment N [Auto mated message] The system which ge nerated this result transmit evin reference range : <=65. The reference range was not used to interpr et this result as kev l/abnormal. [facility] RegionalJqeglnePPWNJTYFX8874-46-94 12:42:00 Test Item Value Reference Range Interpretation Comments Total Protein (test code = Total 8.1 6.4-8.4 N Protein) [facility] RegionalNdmhsjcGTBLPIYDB9725-09-80 12:42:00 Test Item Value Reference Range Interpretation Comments Albumin Lvl (test code = Albumin Lvl) 3.7 3.5-5.0 N [facility] RegionalLqojqecCNFBPBQLW7544-63-05 12:42:00 Test Item Value Reference Range Interpretation Comments Glucose Lvl (test code = Glucose Lvl) 100 70-99 H [facility] RegionalYpvibavYEDICFAUX3510-70-97 12:42:00 Test Item Value Reference Range Interpretation Comments AGAP (test code = AGAP) 11.6 10.0-20.0 N [facility] RegionalRwrdjtyPOKWVOESY8449-61-05 12:42:00 Test Item Value Reference Range Interpretation Comments A/G Ratio (test code = A/G Ratio) 0.8 0.7-1.6 N [facility] RegionalQkfqukiHFODTZHJX5001-16-31 12:42:00 Test Item Value Reference Range Interpretation Comments Globulin (test code = Globulin) 4.4 2.0-4.0 H [facility] RegionalPfxyvtmSXEVBNMZP3180-97-19 12:42:00 Test Item Value Reference Range Interpretation Comments B/C Ratio (test code = B/C Ratio) 7 6-25 N [facility] RegionalHqtabqnACNQWHILR0670-18-12 12:42:00 Test Item Value Reference Range Interpretation Comments Lipase Lvl (test code = Lipase Lvl) 133 73-393 N [facility] RegionalUzllgwfNRSNANLPE1184-09-34 12:42:00 Test Item Value Reference Range Interpretation Comments Amylase Lvl (test code = Amylase Lvl) 42 25-115 N [facility] CenterWgkfjkzYJXQKTJOPD5179-03-09 12:42:00 Test Item Value Reference Range Interpretation Comments Segs-Bands # (test code = Segs-Bands #) 8.3 1.5-8.1 H [facility] CenterKemazntZJIBEZFYTC5714-91-31 12:42:00 Test Item Value Reference Range Interpretation Comments Basophils (test code = 0.4 See_Comment N [Aut omated message] The Basophils) system which ge nerated this result tra nsmitted reference range : <=1.0. The reference r jailene was not used to int erpret this result as normal/abnormal . [facility] CenterJfphojuMJZBHBIDIH3736-08-10 12:42:00 Test Item Value Reference Range Interpretation Comments Segs (test code = Segs) 71.4 45.0-75.0 N [facility] CenterDoatgopELFIOBYCGF3280-08-53 12:42:00 Test Item Value Reference Range Interpretation Comments Eosinophils (test code = 1.3 See_Comment N [A utomated message] The Eosinophils) system which ge nerated this result tra nsmitted reference range : <=4.0. The reference r jailene was not used to int erpret this result as normal/abnormal . [facility] CenterVrekjhiHJCVPABXOO7273-38-87 12:42:00 Test Item Value Reference Range Interpretation Comments Monocytes (test code = Monocytes) 6.1 2.0-12.0 N [facility] CenterZzkpmpvOIMDHECTZQ2694-66-18 12:42:00 Test Item Value Reference Range Interpretation Comments Lymphocytes (test code = Lymphocytes) 20.8 20.0-40.0 N [facility] CenterPebuuowHQLWILGRNP7586-19-01 12:42:00 Test Item Value Reference Range Interpretation Comments Eosinophils # (test code 0.1 See_Comment N [A utomated message] The = Eosinophils #) system [facility] h generated this result tra nsmitted reference range : <=0.5. The reference r jailene was not used to int erpret this result as normal/abnormal . [facility] CenterPvipmkgYWYSYCSCAC8401-95-02 12:42:00 Test Item Value Reference Range Interpretation Comments Lymphocytes # (test code = Lymphocytes 2.4 1.0-5.5 N #) [facility] CenterHaithncVDPGITWQBR0239-18-06 12:42:00 Test Item Value Reference Range Interpretation Comments Monocytes # (test code 0.7 See_Comment N [Aut omated message] The = Monocytes #) system which generated this result tra nsmitted reference range : <=0.8. The reference r jailene was not used to int erpret this result as normal/abnormal . [facility] CenterTbyxstlMKBISYRPBN7755-70-79 12:42:00 Test Item Value Reference Range Interpretation Comments Basophils # (test code 0.1 See_Comment N [Aut omated message] The = Basophils #) system which generated this result tra nsmitted reference range : <=0.2. The reference r jailene was not used to int erpret this result as normal/abnormal . [facility] CenterNgvporeULNMKCOZIH1590-55-29 12:42:00 Test Item Value Reference Range Interpretation Comments MPV (test code = MPV) 11.0 7.4-10.4 H [facility] CenterVgwpqkxOIOFUFDOPO4563-90-29 12:42:00 Test Item Value Reference Range Interpretation Comments MCHC (test code = MCHC) 33.5 32.0-36.0 N [facility] CenterBurcogsREKUJXAXKG8694-34-06 12:42:00 Test Item Value Reference Range Interpretation Comments RDW (test code = RDW) 12.9 11.5-14.5 N [facility] CenterQeplzjbLKIRBOUPTW6703-26-69 12:42:00 Test Item Value Reference Range Interpretation Comments Platelet (test code = Platelet) 250 133-450 N [facility] CenterLcpiylqUDBVHITVIA9390-78-06 12:42:00 Test Item Value Reference Range Interpretation Comments WBC (test code = WBC) 11.6 3.7-10.4 H [facility] CenterFxrjftgIRYCXSBBVL4107-19-58 12:42:00 Test Item Value Reference Range Interpretation Comments Hct (test code = Hct) 36.1 36.0-48.0 N [facility] CenterVvamfxpMVREMPXZPS9110-19-73 12:42:00 Test Item Value Reference Range Interpretation Comments Hgb (test code = Hgb) 12.1 12.0-16.0 N [facility] CenterJpzhjsbLYNHICDYJH8238-45-89 12:42:00 Test Item Value Reference Range Interpretation Comments MCH (test code = MCH) 30.6 pg 27.0-31.0 N [facility] CenterCequlzgOUYHEICUDJ4163-16-85 12:42:00 Test Item Value Reference Range Interpretation Comments RBC (test code = RBC) 3.96 4.20-5.40 L [facility] CenterRvbtrasMLUIKLUORH6103-19-39 12:42:00 Test Item Value Reference Range Interpretation Comments MCV (test code = MCV) 91.2 81.0-99.0 N [facility] HospitalEdrvkxtUQREBOQTFR7077-88-10 12:22:00 Test Item Value Reference Range Interpretation Comments UA Color (test code = UA Color) Ltyellow [facility] HospitalZgycsfyCNQAIEKNQU0263 12:22:00 Test Item Value Reference Range Interpretation Comments UA Urobilinogen (test code *NA*(03/29/2012 0.1-1.0 = UA Urobilinogen) 06:22:00) [facility] HospitalYkkpjinFTPFGZOOBE2301-08-50 12:22:00 Test Item Value Reference Range Interpretation Comments UA WBC (test code = 1 See_Comment N [Automa evin message] The UA WBC) system which ge nerated this result transmit evin reference range : <=5. The reference range was not used to interpr et this result as kev l/abnormal. [facility] HospitalPdlplehDCZTTLQOTO4855-87-34 12:22:00 Test Item Value Reference Range Interpretation Comments UA Sq Epi (test code Occasional /LPF = UA Sq Epi) *NA*(03/29/2012 06:22:00) [facility] HospitalDjcgshlDNBRWXNAKT8289-68-27 12:22:00 Test Item Value Reference Range Interpretation Comments UA RBC (test code = 2 See_Comment N [Automa evin message] The UA RBC) system which ge nerated this result transmit evin reference range : <=2. The reference range was not used to interpr et this result as kev l/abnormal. [facility] HospitalApbqqvsZWZUNTPPXL5878-82-07 12:22:00 Test Item Value Reference Range Interpretation Comments UA Protein (test code Negative mg/dL N = UA Protein) (03/29/2012 06:22:00) [facility] HospitalSmbqtysUQXFVSWUWP6037-99-16 12:22:00 Test Item Value Reference Range Interpretation Comments UA Ketones (test code Negative mg/dL = UA Ketones) *NA*(03/29/2012 06:22:00) [facility] HospitalQmkfgfcPNLEVULZAD8613-25-94 12:22:00 Test Item Value Reference Range Interpretation Comments UA Glucose (test code Negative mg/dL = UA Glucose) *NA*(03/29/2012 06:22:00) [facility] HospitalSpouslhVPLDWQDUTB6567-08-51 12:22:00 Test Item Value Reference Range Interpretation Comments UA Leuk Est (test code Large *ABN*(03/29/2012 A = UA Leuk Est) 06:22:00) [facility] HospitalHpbnwkcHCXBDPVVTS5743-06-65 12:22:00 Test Item Value Reference Range Interpretation Comments UA Nitrite (test code Negative (03/29/2012 N = UA Nitrite) 06:22:00) [facility] HospitalXznzkshOLBTGYSEHS1642-18-52 12:22:00 Test Item Value Reference Range Interpretation Comments UA Blood (test code = Small *ABN*(03/29/2012 A UA Blood) 06:22:00) [facility] HospitalDtprmyyOTAZBZNBNI2406-12-06 12:22:00 Test Item Value Reference Range Interpretation Comments UA Bili (test code = Negative *NA*(03/29/2012 UA Bili) 06:22:00) [facility] HospitalUvbypgkGCTGAEJWNQ8149-96-77 12:22:00 Test Item Value Reference Range Interpretation Comments UA Spec Grav (test code = UA Spec Grav) 1.012 N [facility] HospitalSinyzfdNSYMEIBXNF5000-85-31 12:22:00 Test Item Value Reference Range Interpretation Comments UA Turbidity (test code Slight A = UA Turbidity) *ABN*(03/29/2012 06:22:00) [facility] HospitalLfijdiyNHNLVWSTLB0127-02-16 12:22:00 Test Item Value Reference Range Interpretation Comments UA pH (test code = UA pH) 6.0 5.0-8.0 N [facility] RegionalAwdzbwvKAMMXLPBY1519-27-67 14:11:00 Test Item Value Reference Range Interpretation Comments U Preg (test code = U Negative (02/24/2012 N Preg) 08:11:00) [facility] RegionalAxqolofZNXFXISYN5112-86-04 14:11:00 Test Item Value Reference Range Interpretation Comments Alk Phos (test code = Alk Phos) 91 39-136 N [facility] RegionalAcgkujeDXGSLCQYS2714-39-86 14:11:00 Test Item Value Reference Range Interpretation Comments Total Protein (test code = Total 8.2 6.4-8.4 N Protein) [facility] RegionalZakelczTQCQSCLDG3213-21-83 14:11:00 Test Item Value Reference Range Interpretation Comments Bili Total (test code = Bili Total) 0.4 0.2-1.3 N [facility] RegionalQpepizbVWDAAMYBD6942-47-20 14:11:00 Test Item Value Reference Range Interpretation Comments ALT (test code = ALT) 34 See_Comment N [Auto mated message] The system which ge nerated this result transmit evin reference range : <=65. The reference range was not used to interpr et this result as kev l/abnormal. [facility] RegionalYnamdpcKCULQNGVO0637-95-25 14:11:00 Test Item Value Reference Range Interpretation Comments AST (test code = AST) 22 See_Comment N [Auto mated message] The system which ge nerated this result transmit evin reference range : <=37. The reference range was not used to interpr et this result as kev l/abnormal. [facility] RegionalJgymewaTINPHHPKK6902-62-89 14:11:00 Test Item Value Reference Range Interpretation Comments eGFR (test code = eGFR) 111 [facility] RegionalXpvonbsQGVFKXRLE6576-59-84 14:11:00 Test Item Value Reference Range Interpretation Comments CO2 (test code = CO2) 27 24-32 N [facility] RegionalImdfwvwLWEETEEHN3674-54-50 14:11:00 Test Item Value Reference Range Interpretation Comments Albumin Lvl (test code = Albumin Lvl) 3.8 3.5-5.0 N [facility] RegionalTbemjhcLWDOHQRCL2629-58-83 14:11:00 Test Item Value Reference Range Interpretation Comments Calcium Lvl (test code = Calcium Lvl) 9.1 8.5-10.5 N [facility] RegionalBizxcyhQDRIUUQIV5533-38-42 14:11:00 Test Item Value Reference Range Interpretation Comments BUN (test code = BUN) 7 7-22 N [facility] RegionalBotupeiFUQDAROSS1500-32-45 14:11:00 Test Item Value Reference Range Interpretation Comments Creatinine Lvl (test code = Creatinine 0.7 0.5-1.4 N Lvl) [facility] RegionalZexwnrrOVHTSRSQN7587-18-72 14:11:00 Test Item Value Reference Range Interpretation Comments Glucose Lvl (test code = Glucose Lvl) 94 70-99 N [facility] RegionalPlwqqytBYIVCWAIA5143-49-27 14:11:00 Test Item Value Reference Range Interpretation Comments Chloride Lvl (test code = Chloride Lvl) 104 95-109 N [facility] RegionalHqovgtsYOIMKJVWY8608-46-68 14:11:00 Test Item Value Reference Range Interpretation Comments Potassium Lvl (test code = Potassium 4.0 3.5-5.1 N Lvl) [facility] RegionalCirxkiiMGLDLUEJX9107-22-74 14:11:00 Test Item Value Reference Range Interpretation Comments Sodium Lvl (test code = Sodium Lvl) 139 135-145 N [facility] RegionalEcauzlqCAIEEFYWB7765-36-16 14:11:00 Test Item Value Reference Range Interpretation Comments A/G Ratio (test code = A/G Ratio) 0.9 0.7-1.6 N [facility] RegionalQxdubwpMQASVJROV1240-65-74 14:11:00 Test Item Value Reference Range Interpretation Comments Globulin (test code = Globulin) 4.4 2.0-4.0 H [facility] RegionalIjxpjfjYEWAVKIME5903-59-50 14:11:00 Test Item Value Reference Range Interpretation Comments AGAP (test code = AGAP) 12.0 10.0-20.0 N [facility] RegionalIdfdlpwMDVUKMNKS0953-34-57 14:11:00 Test Item Value Reference Range Interpretation Comments B/C Ratio (test code = B/C Ratio) 10 6-25 N [facility] RegionalKqeowunAFWKMROFM2016-06-36 14:11:00 Test Item Value Reference Range Interpretation Comments Lipase Lvl (test code = Lipase Lvl) 74 73-393 N [facility] CenterPplisfjZBFMAQETMT0774-68-58 14:11:00 Test Item Value Reference Range Interpretation Comments Eosinophils (test code = 2.0 See_Comment N [A utomated message] The Eosinophils) system which ge nerated this result tra nsmitted reference range : <=4.0. The reference r jailene was not used to int erpret this result as normal/abnormal . [facility] CenterNsblewxGZKLWOEKZG3478-92-79 14:11:00 Test Item Value Reference Range Interpretation Comments Monocytes (test code = Monocytes) 7.1 2.0-12.0 N [facility] [facility] CenterDrtapkyYQYFEGTTHV5495-37-27 14:11:00 Test Item Value Reference Range Interpretation Comments Basophils (test code = 0.4 See_Comment N [Aut omated message] The Basophils) system which ge nerated this result tra nsmitted reference range : <=1.0. The reference r jailene was not used to int erpret this result as normal/abnormal . [facility] CenterMfvmhvwVCKWYJMQRH5232-88-94 14:11:00 Test Item Value Reference Range Interpretation Comments Segs-Bands # (test code = Segs-Bands #) 6.7 1.5-8.1 N [facility] CenterYmfocwkSDUITUUEWY4513-17-81 14:11:00 Test Item Value Reference Range Interpretation Comments Basophils # (test code 0.0 See_Comment N [Aut omated message] The = Basophils #) system which generated this result tra nsmitted reference range : <=0.2. The reference r jailene was not used to int erpret this result as normal/abnormal . [facility] CenterVcxdspiWAQZOVGVOZ4433-73-32 14:11:00 Test Item Value Reference Range Interpretation Comments Monocytes # (test code 0.7 See_Comment N [Aut omated message] The = Monocytes #) system which generated this result tra nsmitted reference range : <=0.8. The reference r jailene was not used to int erpret this result as normal/abnormal . [facility] CenterTmhsdgwROBBXXIGXZ8042-08-97 14:11:00 Test Item Value Reference Range Interpretation Comments Eosinophils # (test code 0.2 See_Comment N [A utomated message] The = Eosinophils #) system whic h generated this result tra nsmitted reference range : <=0.5. The reference r jailene was not used to int erpret this result as normal/abnormal . [facility] CenterEbdpwpvHJCBEZINKE9154-16-61 14:11:00 Test Item Value Reference Range Interpretation Comments Lymphocytes # (test code = Lymphocytes 2.8 1.0-5.5 N #) [facility] CenterZcqwqdyYCIMKHCPNP8897-96-58 14:11:00 Test Item Value Reference Range Interpretation Comments Segs (test code = Segs) 63.5 45.0-75.0 N [facility] CenterQitbnvuXZCDPETJKM9120-11-43 14:11:00 Test Item Value Reference Range Interpretation Comments Lymphocytes (test code = Lymphocytes) 27.0 20.0-40.0 N [facility] CenterKnmjkhvLKLHCFEQBV6798-57-27 14:11:00 Test Item Value Reference Range Interpretation Comments MPV (test code = MPV) 10.3 7.4-10.4 N [facility] CenterQhzymzfBZWUOHIUAK2069-93-81 14:11:00 Test Item Value Reference Range Interpretation Comments RDW (test code = RDW) 12.5 11.5-14.5 N [facility] CenterHxbpjfcVETVKEKRYN9511-89-86 14:11:00 Test Item Value Reference Range Interpretation Comments MCHC (test code = MCHC) 33.6 32.0-36.0 N [facility] CenterXmzlvsrEZFYNWYYSB7707-18-43 14:11:00 Test Item Value Reference Range Interpretation Comments Platelet (test code = Platelet) 264 133-450 N [facility] CenterIexbeelCVHILRISGL1992-77-75 14:11:00 Test Item Value Reference Range Interpretation Comments MCV (test code = MCV) 91.8 81.0-99.0 N [facility] CenterVigjtibBCXBVLVTZK0109-20-52 14:11:00 Test Item Value Reference Range Interpretation Comments MCH (test code = MCH) 30.9 pg 27.0-31.0 N [facility] CenterQhukzikIIUWXRAXCW1352-32-81 14:11:00 Test Item Value Reference Range Interpretation Comments Hgb (test code = Hgb) 13.4 12.0-16.0 N [facility] CenterAambervVRROATCQJR8920-04-08 14:11:00 Test Item Value Reference Range Interpretation Comments Hct (test code = Hct) 39.7 36.0-48.0 N [facility] CenterWayzmkeMMHVFJWLMI2586-38-57 14:11:00 Test Item Value Reference Range Interpretation Comments WBC (test code = WBC) 10.6 3.7-10.4 H [facility] CenterZwqcwajPMQRCDLHQX2626-30-70 14:11:00 Test Item Value Reference Range Interpretation Comments RBC (test code = RBC) 4.32 4.20-5.40 N [facility] HospitalFdcaibjSYDNTQVQIG2915-13-57 14:11:00 Test Item Value Reference Range Interpretation Comments UA Color (test code = UA Color) Ltyellow [facility] HospitalJfveyvaCHJKINESMJ4651-20-60 14:11:00 Test Item Value Reference Range Interpretation Comments UA Urobilinogen (test code *NA*(02/24/2012 0.1-1.0 = UA Urobilinogen) 08:11:00) [facility] HospitalBxlknxqEPLMSLMLJY7054-97-65 14:11:00 Test Item Value Reference Range Interpretation Comments UA Blood (test code = Small *ABN*(02/24/2012 A UA Blood) 08:11:00) [facility] HospitalCzxfwsvLLJJYKTOAH3628-49-64 14:11:00 Test Item Value Reference Range Interpretation Comments UA RBC (test code = 8 See_Comment H [Automa evin message] The UA RBC) system which ge nerated this result transmit evin reference range : <=2. The reference range was not used to interpr et this result as kev l/abnormal. [facility] HospitalWsgrndbVLCOMEITKS4781-43-14 14:11:00 Test Item Value Reference Range Interpretation Comments UA Bacteria (test code = Few /HPF UA Bacteria) *NA*(02/24/2012 08:11:00) [facility] HospitalQxergvuHYDHUBYHPQ4600-82-77 14:11:00 Test Item Value Reference Range Interpretation Comments UA Sq Epi (test code = Many /LPF A UA Sq Epi) *ABN*(02/24/2012 08:11:00) [facility] HospitalAwlmyclQZEPPTCAAE8159-25-41 14:11:00 Test Item Value Reference Range Interpretation Comments UA WBC (test code = 7 See_Comment H [Automa evin message] The UA WBC) system which ge nerated this result transmit evin reference range : <=5. The reference range was not used to interpr et this result as kev l/abnormal. [facility] HospitalJuziyogDZXTJRVYRK7015-35-24 14:11:00 Test Item Value Reference Range Interpretation Comments UA Leuk Est (test code Large *ABN*(02/24/2012 A = UA Leuk Est) 08:11:00) [facility] HospitalFmnoaqdSTNKKFXBIV0792-54-45 14:11:00 Test Item Value Reference Range Interpretation Comments UA Nitrite (test code Negative (02/24/2012 N = UA Nitrite) 08:11:00) [facility] HospitalPlgiqosDOYCJFFSTW9590-54-11 14:11:00 Test Item Value Reference Range Interpretation Comments UA Ketones (test code Negative mg/dL = UA Ketones) *NA*(02/24/2012 08:11:00) [facility] HospitalOmexpfrJMPOUJHXBC2352-96-15 14:11:00 Test Item Value Reference Range Interpretation Comments UA Glucose (test code Negative mg/dL = UA Glucose) *NA*(02/24/2012 08:11:00) [facility] HospitalMwiwibeJQCXIAYNXE0368-19-96 14:11:00 Test Item Value Reference Range Interpretation Comments UA Protein (test code Negative mg/dL N = UA Protein) (02/24/2012 08:11:00) [facility] HospitalDnohoauUDUUAGGZKG3849-81-27 14:11:00 Test Item Value Reference Range Interpretation Comments UA Bili (test code = Negative *NA*(02/24/2012 UA Bili) 08:11:00) [facility] HospitalKkwroykSFZHEKOHRK4184-53-83 14:11:00 Test Item Value Reference Range Interpretation Comments UA pH (test code = UA pH) 8.0 5.0-8.0 N [facility] HospitalZuyvtyoADVXHBFJYP2621-91-26 14:11:00 Test Item Value Reference Range Interpretation Comments UA Spec Grav (test code = UA Spec Grav) 1.001 N [facility]lakeYyjnfyqVRSYVDTGBJ6431-88-03 14:11:00 Test Item Value Reference Range Interpretation Comments UA Turbidity (test code Slight A = UA Turbidity) *ABN*(02/24/2012 08:11:00) [facility]lakeDiolqpmUvqdykdamdzp6743-27-26 21:16:00 Test Item Value Reference Range Interpretation Comments Culture: Urine (test code = Culture: Urine) [facility]BfydtrfOQAFBIDUZ0784-19-41 20:30:00 Test Item Value Reference Range Interpretation Comments AGAP (test code = AGAP) 13.4 10.0-20.0 N [facility]oBavqoffXAGRVSMUD7808-44-46 20:30:00 Test Item Value Reference Range Interpretation Comments Globulin (test code = Globulin) 4.4 2.0-4.0 H [facility]HwuqfxiEDZDQSJQE9452-35-53 20:30:00 Test Item Value Reference Range Interpretation Comments B/C Ratio (test code = B/C Ratio) 6 6-25 N [facility]oDagqkieJWCIJETOV7682-23-02 20:30:00 Test Item Value Reference Range Interpretation Comments A/G Ratio (test code = A/G Ratio) 0.9 0.7-1.6 N [facility]oHhmcfavFNJYNYYGV8670-58-94 20:30:00 Test Item Value Reference Range Interpretation Comments Chloride Lvl (test code = Chloride Lvl) 103 95-109 N [facility]oOkexovaLZHMDXCID0043-21-65 20:30:00 Test Item Value Reference Range Interpretation Comments Potassium Lvl (test code = Potassium 3.4 3.5-5.1 L Lvl) [facility]oRwmantrXCMVDERBY4150-25-58 20:30:00 Test Item Value Reference Range Interpretation Comments Sodium Lvl (test code = Sodium Lvl) 139 135-145 N [facility]oBiwqpjsIBNSHSASU7327-53-57 20:30:00 Test Item Value Reference Range Interpretation Comments Calcium Lvl (test code = Calcium Lvl) 9.1 8.5-10.5 N [facility]oYiywmjgIATJQYANB6192-47-43 20:30:00 Test Item Value Reference Range Interpretation Comments Albumin Lvl (test code = Albumin Lvl) 3.8 3.5-5.0 N [facility]oXyejjnvGZSYDAUMI2810-01-07 20:30:00 Test Item Value Reference Range Interpretation Comments Total Protein (test code = Total 8.2 6.4-8.4 N Protein) [facility] RegionalTlitmrzIKORWXARS7234-19-55 20:30:00 Test Item Value Reference Range Interpretation Comments AST (test code = AST) 17 See_Comment N [Auto mated message] The system which ge nerated this result transmit evin reference range : <=37. The reference range was not used to interpr et this result as kev l/abnormal. [facility] RegionalStsnzvjEHPAIAPOB3452-51-58 20:30:00 Test Item Value Reference Range Interpretation Comments Alk Phos (test code = Alk Phos) 89 39-136 N [facility] RegionalBybcpjzQKJSARYYV7961-08-44 20:30:00 Test Item Value Reference Range Interpretation Comments Bili Total (test code = Bili Total) 0.3 0.2-1.3 N [facility] RegionalZiuvprgGHIVVETEX8216-24-54 20:30:00 Test Item Value Reference Range Interpretation Comments ALT (test code = ALT) 34 See_Comment N [Auto mated message] The system which ge nerated this result transmit evin reference range : <=65. The reference range was not used to interpr et this result as kev l/abnormal. [facility] RegionalOumhveqPLPNKPQOM9220-28-53 20:30:00 Test Item Value Reference Range Interpretation Comments Glucose Lvl (test code = Glucose Lvl) 112 70-99 H [facility] RegionalHserblaHWQDGWOYX8355-35-21 20:30:00 Test Item Value Reference Range Interpretation Comments Creatinine Lvl (test code = Creatinine 0.8 0.5-1.4 N Lvl) [facility] RegionalLteceqmFCQARZGYX6779-51-75 20:30:00 Test Item Value Reference Range Interpretation Comments BUN (test code = BUN) 5 7-22 L [facility]oGnabdaqPPZUZYLIE4228-05-02 20:30:00 Test Item Value Reference Range Interpretation Comments CO2 (test code = CO2) 26 24-32 N [facility]lakeZcivoigZFDNBNYICV9615-45-03 20:30:00 Test Item Value Reference Range Interpretation Comments Basophils # (test code 0.0 See_Comment N [Aut omated message] The = Basophils #) system which generated this result tra nsmitted reference range : <=0.2. The reference r jailene was not used to int erpret this result as normal/abnormal . [facility] CenterUsqwnceASGMIJPRJI5065-69-89 20:30:00 Test Item Value Reference Range Interpretation Comments Hypochrom (test code = Slight (08/08/2011 N Hypochrom) 15:30:00) [facility] CenterApcajtbHVQUSOTFIB0614-46-77 20:30:00 Test Item Value Reference Range Interpretation Comments Eosinophils # (test code 0.2 See_Comment N [A utomated message] The = Eosinophils #) system whic h generated this result tra nsmitted reference range : <=0.5. The reference r jailene was not used to int erpret this result as normal/abnormal . [facility] CenterBvfkjvoWVWAOSMQBL9009-23-76 20:30:00 Test Item Value Reference Range Interpretation Comments Lymphocytes (test code = Lymphocytes) 34.5 20.0-40.0 N [facility] CenterNpkkshtPPLEDFIZQV0578-58-11 20:30:00 Test Item Value Reference Range Interpretation Comments Monocytes (test code = Monocytes) 5.4 2.0-12.0 N [facility] CenterRkaamxmWBFBSXTTMG3619-58-23 20:30:00 Test Item Value Reference Range Interpretation Comments Eosinophils (test code = 1.7 See_Comment N [A utomated message] The Eosinophils) system which ge nerated this result tra nsmitted reference range : <=4.0. The reference r jailene was not used to int erpret this result as normal/abnormal . [facility] CenterPidqrlqMVLFGIPDSD4462-98-09 20:30:00 Test Item Value Reference Range Interpretation Comments Plt Morph (test code = Normal (08/08/2011 N Plt Morph) 15:30:00) [facility] CenterNfkoyxoYXKLFOAFKT3159-33-49 20:30:00 Test Item Value Reference Range Interpretation Comments Segs (test code = Segs) 58.0 45.0-75.0 N [facility] CenterWscdihqDQIHTJWVMC8975-06-33 20:30:00 Test Item Value Reference Range Interpretation Comments Lymphocytes # (test code = Lymphocytes 3.4 1.0-5.5 N #) [facility] CenterZuzutbeJAWPCWNFKX0816-71-92 20:30:00 Test Item Value Reference Range Interpretation Comments Monocytes # (test code 0.5 See_Comment N [Aut omated message] The = Monocytes #) system which generated this result tra nsmitted reference range : <=0.8. The reference r jailene was not used to int erpret this result as normal/abnormal . [facility] CenterTwbhwvjNZCIHCBZOP6723-83-11 20:30:00 Test Item Value Reference Range Interpretation Comments Basophils (test code = 0.4 See_Comment N [Aut omated message] The Basophils) system which ge nerated this result tra nsmitted reference range : <=1.0. The reference r jailene was not used to int erpret this result as normal/abnormal . [facility] CenterQmnizkbQAGGSWVCLZ5308-17-11 20:30:00 Test Item Value Reference Range Interpretation Comments Segs-Bands # (test code = Segs-Bands #) 5.7 1.5-8.1 N [facility] CenterPeearwvTDIVIRCLIR3554-23-54 20:30:00 Test Item Value Reference Range Interpretation Comments Hct (test code = Hct) 37.9 36.0-48.0 N [facility] CenterKzwlbktJRXSPTRWJX0651-33-78 20:30:00 Test Item Value Reference Range Interpretation Comments MCH (test code = MCH) 31.2 pg 27.0-31.0 H [facility] CenterDzgnxejINHWKUEGSB0876-93-46 20:30:00 Test Item Value Reference Range Interpretation Comments MCHC (test code = MCHC) 34.2 32.0-36.0 N [facility] CenterBccflmdTAWHEBJEYZ0311-14-49 20:30:00 Test Item Value Reference Range Interpretation Comments MCV (test code = MCV) 91.1 81.0-99.0 N [facility] CenterJqzcollJIWARSTVUL4805-88-24 20:30:00 Test Item Value Reference Range Interpretation Comments WBC (test code = WBC) 9.9 3.7-10.4 N [facility] CenterCrbwseaKSBGWEWUDO3682-44-44 20:30:00 Test Item Value Reference Range Interpretation Comments RDW (test code = RDW) 13.4 11.5-14.5 N [facility] CenterFhhkzzpEBHMWNGMMA5338-49-30 20:30:00 Test Item Value Reference Range Interpretation Comments Platelet (test code = Platelet) 311 133-450 N [facility] CenterWfuxowqNDRNJNRKBT6591-25-59 20:30:00 Test Item Value Reference Range Interpretation Comments MPV (test code = MPV) 10.1 7.4-10.4 N [facility] CenterWkprbdmVMQMLGGJIN9168-15-72 20:30:00 Test Item Value Reference Range Interpretation Comments RBC (test code = RBC) 4.16 4.20-5.40 L [facility]lakeVgmlhqxJBTMTRNEMG4315-66-20 20:30:00 Test Item Value Reference Range Interpretation Comments Hgb (test code = Hgb) 13.0 12.0-16.0 N [facility]BipwsrgCRZMVACESV9149-38-31 20:30:00 Test Item Value Reference Range Interpretation Comments UA Urobilinogen (test code *NA*(08/08/2011 0.1-1.0 = UA Urobilinogen) 15:30:00) [facility] HospitalFtjufiaIIBDLXOCWA9142-17-54 20:30:00 Test Item Value Reference Range Interpretation Comments UA Turbidity (test code Marked A = UA Turbidity) *ABN*(08/08/2011 15:30:00) [facility] HospitalEbtrdnmLBXPRDBZKA9309-51-68 20:30:00 Test Item Value Reference Range Interpretation Comments UA Color (test code = Yellow *NA*(08/08/2011 UA Color) 15:30:00) [facility] HospitalPkhgpceINOBLENBZJ9695-66-57 20:30:00 Test Item Value Reference Range Interpretation Comments UA Spec Grav (test code = UA Spec Grav) 1.016 N [facility] HospitalVanxhurPYELXAWHVQ1887-57-58 20:30:00 Test Item Value Reference Range Interpretation Comments UA pH (test code = UA pH) 6.0 5.0-8.0 N [facility] HospitalMnkyapfHZLTARDWKD6234-87-23 20:30:00 Test Item Value Reference Range Interpretation Comments UA Bacteria (test code Occasional /HPF = UA Bacteria) *NA*(08/08/2011 15:30:00) [facility] HospitalYgzfegbVAIKOHXLVB0999-31-47 20:30:00 Test Item Value Reference Range Interpretation Comments UA Mucus (test code = Moderate /LPF A UA Mucus) *ABN*(08/08/2011 15:30:00) [facility] HospitalUdjkvkcXTYPGEVQJT9409-49-76 20:30:00 Test Item Value Reference Range Interpretation Comments UA Leuk Est (test code Trace *ABN*(08/08/2011 A = UA Leuk Est) 15:30:00) [facility] HospitalPtnmzlmXNGANHCJCX1384-75-77 20:30:00 Test Item Value Reference Range Interpretation Comments UA Sq Epi (test code = Many /LPF A UA Sq Epi) *ABN*(08/08/2011 15:30:00) [facility] HospitalAbwyjcdNVSOXALXNE7634-20-73 20:30:00 Test Item Value Reference Range Interpretation Comments UA WBC (test code = 2 See_Comment N [Automa evin message] The UA WBC) system which ge nerated this result transmit evin reference range : <=5. The reference range was not used to interpr et this result as kev l/abnormal. [facility] HospitalOrgonwjLDDLYYFYUG1582-04-55 20:30:00 Test Item Value Reference Range Interpretation Comments UA RBC (test code = 3 See_Comment H [Automa evin message] The UA RBC) system which ge nerated this result transmit evin reference range : <=2. The reference range was not used to interpr et this result as kev l/abnormal. [facility] HospitalPbdjwagTIIVNTWSQF7894-17-19 20:30:00 Test Item Value Reference Range Interpretation Comments UA Ketones (test code Negative mg/dL = UA Ketones) *NA*(08/08/2011 15:30:00) [facility] HospitalUovzscsHXGXMZRLPF4426-27-92 20:30:00 Test Item Value Reference Range Interpretation Comments UA Protein (test code Negative mg/dL N = UA Protein) (08/08/2011 15:30:00) [facility] HospitalMsrtohuFLKOPTYHRA1365-06-61 20:30:00 Test Item Value Reference Range Interpretation Comments UA Glucose (test code Negative mg/dL = UA Glucose) *NA*(08/08/2011 15:30:00) [facility] HospitalEpxcqdySEDYFCLRST3667-30-63 20:30:00 Test Item Value Reference Range Interpretation Comments UA Blood (test code = Small *ABN*(08/08/2011 A UA Blood) 15:30:00) [facility] HospitalTfrifbqWZBVGSLPDG0047-66-85 20:30:00 Test Item Value Reference Range Interpretation Comments UA Nitrite (test code Negative (08/08/2011 N = UA Nitrite) 15:30:00) [facility] HospitalZkwoemeZEOZVXJBDE7599-03-74 20:30:00 Test Item Value Reference Range Interpretation Comments UA Bili (test code = Negative *NA*(08/08/2011 UA Bili) 15:30:00) [facility]
[2021-12-11] MEDS ORDERED: dexAMETHasone 10 MG/ML VIAL ONE (12:57)
[2021-12-11] MEDS ORDERED: KETOROLAC 30 MG/ML INJ ONE (12:57)
[2021-12-11] MEDS ORDERED: NA CHLORIDE 0.9% 1,000 ML ONE (12:57)
[2021-12-11 13:06] LABS: Urine Blood Trace-intact (Negative); Urine Glucose Negative (Negative); Urine Protein Negative (Negative); Urine Specific Gravity 1.025 (1.005-1.030)
[2021-12-11 13:18] LABS: Hematocrit 41.3 % (36.0-45.0); Lymphocytes % 33.7 % (15.3-44.8); MCV 89.4 fL (80-100); MPV 10.2 fL (7.6-11.3); RBC Red Blood Cell Count 4.62 M/uL (3.86-4.86)
[2021-12-11 13:19] LABS: Absolute Lymphocytes (CBC) 3.5 K/uL (0.7-4.9)
[2021-12-11 13:42] LABS: Albumin 3.6 g/dL (3.4-5.0); Bilirubin Total 0.5 mg/dL (0.2-1.0); Potassium 3.8 mmol/L (3.5-5.1); Protein, Total 8.5 g/dL (6.4-8.2)
[2021-12-11 13:44] LABS: Urine Bacteria <20 /HPF (<20); Urine Mucus Slight /HPF (None Seen); Urine RBC <5 /HPF (None Seen)
[2021-12-11 14:02] LABS: Urine Blood Trace-intact (Negative); Urine Glucose Negative (Negative); Urine Protein Trace (Negative); Urine Specific Gravity 1.025 (1.005-1.030)
[2021-12-11] MEDS ORDERED: KETAMINE HCL 500 MG/5 ML VIAL ONE (14:47)
--- NOTE | 2021-12-11 15:02 | EDPHYS ---
Physician Documentation [facility] Name: Misa Tony Age: 46 yrs Sex: Female : 1975 Arrival Date: 12/11/2021 Time: 12:28 Bed 13 Private MD: ED Physician Lloyd Espinal HPI: 12/11 13:56 This 46 yrs old Female presents to ER via Ambulatory with complaints of Abdominal Pain. ms3 13:56 The patient presents with abdominal pain in the lower abdomen. Onset: The ms3 symptoms/episode began/occurred 2 day(s) ago. The symptoms do not radiate. Associated signs and symptoms: none. The symptoms are described as crampy. Modifying factors: The symptoms are alleviated by nothing, the symptoms are aggravated by nothing. Severity of pain: At its worst the pain was severe in the emergency department the pain is unchanged. 46-year-old female with past medical history of bipolar, endometriosis, gastritis, gastroparesis, GERD presents the emergency department for lower abdominal pain that began 2 days prior to arrival. Patient denies nausea, vomiting, diarrhea. Patient states her pain is a 9/10 described as cramping. Patient denies alleviating or inciting factors.. 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 - Social history:: Smoking status: Patient denies any tobacco usage or history of. ROS: 13:56 Constitutional: Negative for fever, and chills. Neck: Negative for injury, pain, and ms3 swelling, Cardiovascular: Negative for chest pain, and palpitations. Respiratory: Negative for shortness of breath, cough, wheezing, and pleuritic chest pain. 13:56 Abdomen/GI: Positive for abdominal pain, Negative for nausea, vomiting, and diarrhea. 13:56 All other systems are negative. Exam: 13:56 Constitutional: This is a well developed, well nourished patient who is awake, alert, ms3 and in no acute distress. Eyes: Pupils equal round and reactive to light, extra-ocular motions intact. Lids and lashes normal. Conjunctiva and sclera are non-icteric and not injected. Periorbital areas with no swelling, redness, or edema. Neck: Trachea midline, no cervical lymphadenopathy. Supple, full range of motion without nuchal rigidity, or vertebral point tenderness. No Meningismus. Chest/axilla: Normal chest wall appearance and motion. Nontender with no deformity. Cardiovascular: Regular rate and rhythm with a normal S1 and S2. No gallops, murmurs, or rubs. Normal PMI, no JVD. No pulse deficits. Respiratory: Lungs have equal breath sounds bilaterally, clear to auscultation and percussion. No rales, rhonchi or wheezes noted. No increased work of breathing, no retractions or nasal flaring. 13:56 Abdomen/GI: Inspection: abdomen appears normal, Bowel sounds: normal, Palpation: moderate abdominal tenderness, in the right lower quadrant and left lower quadrant. Vital Signs: 12:38 BP 130 / 99; Pulse 80; Resp 17; Temp 97.5; Pulse Ox 100% ; Weight 92.99 kg; Height 5 jl7 ft. 5 in. (165.10 cm); Pain 9/10; 15:18 BP 154 / 93; Pulse 86; Pulse Ox 99% ; ap3 12:38 Body Mass Index 34.11 (92.99 kg, 165.10 cm) jl7 MDM: 12:52 Patient medically screened. ms3 13:56 Differential diagnosis:. Data reviewed: vital signs, nurses notes, lab test result(s), ms3 and as a result, I will discharge patient. 12/11 12:52 Order name: CBC with Diff; Complete Time: 13:49 ms3 12/11 12:52 Order name: CMP; Complete Time: 13:49 ms3 12/11 12:52 Order name: Lipase; Complete Time: 13:49 ms3 12/11 12:52 Order name: Urine Microscopic Only; Complete Time: 13:49 ms3 12/11 13:06 Order name: Urine Dipstick-Ancillary; Complete Time: 13:49 EDMS 12/11 14:02 Order name: Urine Dipstick-Ancillary; Complete Time: 14:05 EDMS 12/11 12:52 Order name: IV Saline Lock; Complete Time: 13:09 ms3 12/11 12:52 Order name: Labs collected and sent; Complete Time: 13:09 ms3 12/11 12:52 Order name: Urine Dipstick-Ancillary (obtain specimen); Complete Time: 13:14 ms3 Administered Medications: 13:14 Drug: Ketorolac 15 mg Route: IVP; Site: left antecubital; ap3 14:53 Follow up: Response: No adverse reaction; Pain is decreased ap3 13:14 Drug: NS 0.9% 1000 ml Route: IV; Rate: 1000 ml; Site: left antecubital; ap3 15:19 Follow up: IV Status: Completed infusion ap3 13:14 Drug: Decadron - Dexamethasone 10 mg Route: IVP; Site: left antecubital; ap3 14:53 Follow up: Response: No adverse reaction ap3 14:53 Drug: Ketamine 10 mg Route: IVP; Site: left antecubital; ap3 15:19 Follow up: Response: No adverse reaction; Pain is decreased ap3 Disposition Summary: 12/11/21 15:01 Discharge Ordered Location: Home ms3 Condition: Stable ms3 Diagnosis - Lower abdominal pain, unspecified ms3 Followup: ms3 - With: Leo Ugalde MD - When: 2 - 3 days - Reason: Recheck today's complaints Discharge Instructions: - Discharge Summary Sheet ms3 - Abdominal Pain, Adult ms3 Forms: - Medication Reconciliation Form ms3 - Thank You Letter ms3 - Antibiotic Education ms3 - Prescription Opioid Use ms3 Signatures: Dispatcher [employer] Jennifer Christine RN RN jl7 Anjali Pritchard RN RN ap3 Lloyd Espinal DO DO ms3
--- NOTE | 2021-12-11 15:02 | ER ---
Nurse's Notes [facility] Name: Misa Tony Age: 46 yrs Sex: Female : 1975 Arrival Date: 12/11/2021 Time: 12:28 Bed 13 Private MD: Diagnosis: Lower abdominal pain, unspecified Presentation: 12/11 12:38 Chief complaint: Patient states: Lower abdominal pain x 2 days, stabbing, reports hx of jl7 endometriosis, hysterectomy in 2001; denies N/V/D. Coronavirus screen: At this time, the client does not indicate any symptoms associated with coronavirus-19. Ebola Screen: No symptoms or risks identified at this time. Initial Sepsis Screen: Does the patient meet any 2 criteria? No. Patient's initial sepsis screen is negative. Does the patient have a suspected source of infection? No. Patient's initial sepsis screen is negative. Risk Assessment: Do you want to hurt yourself or someone else? Patient reports no desire to harm self or others. Onset of symptoms was December 09, 2021. 12:38 Method Of Arrival: Ambulatory [facility] 12:38 Acuity: ELADIO 3 jl7 Triage Assessment: 12:39 General: Appears in no apparent distress. uncomfortable, Behavior is cooperative, jl7 anxious. Pain: Complains of pain in right lower quadrant and left lower quadrant Pain currently is 9 out of 10 on a pain scale. GI: Reports lower abdominal pain. 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 - Social history:: Smoking status: Patient denies any tobacco usage or history of. Screenin:15 Abuse screen: Denies threats or abuse. Nutritional screening: No deficits noted. ap3 Tuberculosis screening: No symptoms or risk factors identified. Fall Risk None identified. Assessment: 13:14 General: Appears uncomfortable, Behavior is calm, cooperative. Pain: Complains of pain ap3 in abdomen and left lower quadrant and right lower quadrant. Neuro: Level of Consciousness is awake, alert, obeys commands, Oriented to person, place, time, situation. Cardiovascular: Patient's skin is warm and dry. Respiratory: Airway is patent Respiratory effort is even, unlabored, Respiratory pattern is regular, symmetrical. GI: Bowel sounds present X 4 quads. Abd is soft. Vital Signs: 12:38 BP 130 / 99; Pulse 80; Resp 17; Temp 97.5; Pulse Ox 100% ; Weight 92.99 kg; Height 5 jl7 ft. 5 in. (165.10 cm); Pain 9/10; 15:18 BP 154 / 93; Pulse 86; Pulse Ox 99% ; ap3 12:38 Body Mass Index 34.11 (92.99 kg, 165.10 cm) jl7 ED Course: 12:28 Patient arrived in ED. rg4 12:28 Lloyd Espinal DO is Attending Physician. ms3 12:39 Triage completed. jl7 12:39 Arm band placed on right wrist. jl7 12:57 Anjali Pritchard, VINOD is Primary Nurse. ap3 13:08 Inserted saline lock: 20 gauge in left antecubital area, using aseptic technique. Blood zm collected. 13:09 CBC with Diff Sent. zm 13:09 CMP Sent. zm 13:09 Lipase Sent. zm 13:15 Patient has correct armband on for positive identification. Bed in low position. Call ap3 light in reach. Side rails up X 1. Pulse ox on. NIBP on. Door closed. Noise minimized. 15:01 Leo Ugalde MD is Referral Physician. ms3 15:18 No provider procedures requiring assistance completed. IV discontinued, intact, ap3 bleeding controlled, No redness/swelling at site. Pressure dressing applied. Administered Medications: 13:14 Drug: Ketorolac 15 mg Route: IVP; Site: left antecubital; ap3 14:53 Follow up: Response: No adverse reaction; Pain is decreased ap3 13:14 Drug: NS 0.9% 1000 ml Route: IV; Rate: 1000 ml; Site: left antecubital; ap3 15:19 Follow up: IV Status: Completed infusion ap3 13:14 Drug: Decadron - Dexamethasone 10 mg Route: IVP; Site: left antecubital; ap3 14:53 Follow up: Response: No adverse reaction ap3 14:53 Drug: Ketamine 10 mg Route: IVP; Site: left antecubital; ap3 15:19 Follow up: Response: No adverse reaction; Pain is decreased ap3 Medication: 13:15 VIS not applicable for this client. ap3 Outcome: 15:01 Discharge ordered by . ms3 15:18 Discharged to home ambulatory. ap3 15:18 Condition: good 15:18 Discharge instructions given to patient, Instructed on discharge instructions, follow up and referral plans. Demonstrated understanding of instructions, follow-up care. 15:18 Patient left the ED. ap3 Signatures: Ariana Alberto rg4 Jennifer Baltazar RN RN jl7 Anjali Pritchard RN RN ap3 Lloyd Espinal DO DO ms3 Yeimy Martinez
[2021-12-11 15:24] VITALS: BP 154/93; TEMP 97.5; O2SAT 99
== END 2021-12-11 15:18 | disposition home or self-care (01) ==
LOC: ER 12:23
DX: R10.30 Lower abdominal pain, unspecified (principal); I10 Essential (primary) hypertension; Z88.5 Allergy status to narcotic agent
CPT/HCPCS: 36415; 80053; 81003; 81015; 83690; 85025; 96361; 96374; 96375; 99284; J1100; J7030

== ENCOUNTER → 2023-02-25 | Emergency (ER) | payer SELFPAY ==
[~2023-02-25] MED LIST: FAMOTIDINE 20 MG/2 ML VIAL IV ONE; KETOROLAC 30 MG/ML INJ ONE; MORPHINE 4 MG/ML SYR ONE; NA CHLORIDE 0.9% 1,000 ML ONE; ONDANSETRON 4 MG/2 ML VIAL ONE
[2023-02-25 17:58] LABS: Specific Gravity 1.018 (1.005-1.030); Urine Bacteria <20 /HPF (<20); Urine Bilirubin NEGATIVE (Negative); Urine Blood Negative (Negative); Urine Clarity Turbid (Clear); Urine Color Yellow (Yellow); Urine Crystals Unidentified Few /HPF (None Seen); Urine Glucose NEGATIVE (Negative); Urine Mucus Slight /HPF (None Seen); Urine Protein TRACE (Negative); Urine RBC <5 /HPF (None Seen); Urine Urobilinogen 1+ (Normal)
[2023-02-25 18:00] LABS: Absolute Lymphocytes (CBC) 4.1 K/uL (0.7-4.9); Hematocrit 40.7 % (36.0-45.0); Lymphocytes % 32.1 % (15.3-44.8); MCV 87.7 fL (80-100); MPV 10.6 fL (7.6-11.3); Platelets 273 thou/uL (152-406); RBC Red Blood Cell Count 4.64 M/uL (3.86-4.86)
[2023-02-25 18:28] LABS: Albumin 3.9 g/dL (3.4-5.0); Bilirubin Total 0.7 mg/dL (0.2-1.0)
[2023-02-25 18:29] LABS: Potassium 3.3 mEq/L (3.5-5.1)
--- NOTE | 2023-02-25 19:10 | RAD REPORT ---
EXAM DESCRIPTION: CT - Abdomen Pelvis W Contrast - 02/25/2023 6:53 pm CLINICAL HISTORY: Abdominal pain COMPARISON: 2021 TECHNIQUE: Computed axial tomography of the abdomen pelvis was obtained. 100 cc Isovue-300 was admin istered intravenously. Oral contrast was not requested which limits evaluation of bowel and appendix All CT scans are performed using dose optimization technique as appropriate and may include automated exposure control or mA/KV adjustment according to patient size. FINDINGS: Fatty liver. Cholecystectomy. Prominence of the biliary tree without significant change presumably physiologic Spleen, pancreas, adrenals and kidneys unremarkable Hysterectomy. No adnexal mass Normal appendix IMPRESSION: No acute abnormality is displayed.
--- NOTE | 2023-02-25 19:15 | ER ---
Nurse's Notes [facility] Name: Misa Tony Age: 47 yrs Sex: Female : 1975 Arrival Date: 02/25/2023 Time: 17:03 Bed 19 Private MD: Diagnosis: Abdominal pain, Generalized Presentation: 02/25 17:17 Chief complaint: Patient states: PATIENT STATES HAS ABD PAIN, NAUSEA AND DIARRHEA X 3 db DAYS. Coronavirus screen: Vaccine status: Patient reports receiving the 2nd dose of the covid vaccine. Client denies travel out of the [place] in the last 14 days. At this time, the client does not indicate any symptoms associated with coronavirus-19. Ebola Screen: Patient negative for fever greater than or equal to 101.5 degrees Fahrenheit, and additional compatible Ebola Virus Disease symptoms Patient denies exposure to infectious person. Patient denies travel to an Ebola-affected area in the 21 days before illness onset. No symptoms or risks identified at this time. Initial Sepsis Screen: Does the patient meet any 2 criteria? No. Patient's initial sepsis screen is negative. Does the patient have a suspected source of infection? No. Patient's initial sepsis screen is negative. Risk Assessment: Do you want to hurt yourself or someone else? Patient reports no desire to harm self or others. Onset of symptoms was February 25, 2023. 17:17 Method Of Arrival: Ambulatory db 17:17 Acuity: ELADIO 3 db Triage Assessment: 17:18 General: Appears in no apparent distress. comfortable, Behavior is calm, cooperative. db Pain: Complains of pain in abdomen. GI: Abdomen is non-distended, Reports upper abdominal pain, nausea, vomiting. 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 Screenin:[address] [facility] ED Fall Risk Assessment (Adult) Score/Fall Risk Level 0 - 2 = Low Risk nj1 Oriented to surroundings, Maintained a safe environment, Hourly rounding (assess needs \T\ fall precautionary measures) done. Abuse screen: Denies threats or abuse. Denies injuries from another. Nutritional screening: No deficits noted. Tuberculosis screening: No symptoms or risk factors identified. Assessment: 17:30 General: Appears in no apparent distress. uncomfortable, Behavior is calm, cooperative, nj1 appropriate for age. Pain: Complains of pain in abdomen Pain currently is 9 out of 10 on a pain scale. 17:30 Neuro: Level of Consciousness is awake, alert, obeys commands, Oriented to person, nj1 place, time, situation. Cardiovascular: Patient's skin is warm and dry. Respiratory: Airway is patent Respiratory effort is even, unlabored. GI: Reports upper abdominal pain, diarrhea, nausea. 18:32 Reassessment: Patient appears in no apparent distress at this time. Patient and/or nj1 family updated on plan of care and expected duration. Pain level reassessed. Patient is alert, oriented x 3, equal unlabored respirations, skin warm/dry/pink. 19:11 Reassessment: No changes from previously documented assessment. nj1 20:11 Reassessment: No changes from previously documented assessment. nj1 Vital Signs: 17:17 BP 148 / 76; Pulse 86; Resp 18; Temp 98.3(O); Pulse Ox 99% ; Weight 77.11 kg; Height 5 db ft. 5 in. ; Pain 9/10; 18:32 BP 135 / 88; Pulse 80; Resp 16; Pulse Ox 100% ; Pain 10/10; nj1 19:11 BP 140 / 106; Pulse 79; Resp 18; Pulse Ox 100% ; Pain 9/10; nj1 20:10 BP 138 / 94; Pulse 76; Resp 16; Pulse Ox 100% on R/A; Pain 9/10; nj1 17:17 Body Mass Index 28.29 (77.11 kg, 165.1 cm) db 17:17 Pain Scale: Adult db 18:32 Pain Scale: Adult nj1 19:11 Pain Scale: Adult nj1 20:10 Pain Scale: Adult nj1 ED Course: 17:07 Patient arrived in ED. ae5 17:11 Anette León FNP-C [facility] kb 17:11 Ibrahima Sam MD is Attending Physician. kb 17:11 Jose Dhaliwal MD is Attending Physician. kb 17:18 Triage completed. db 17:18 Arm band placed on Patient placed in an exam room. db 17:30 Patient has correct armband on for positive identification. Bed in low position. Call nj1 light in reach. Provided Education on: call light, fall precautions. 17:35 Missed attempt(s): 22 gauge in right antecubital area. Bleeding controlled, band aid nj1 applied, catheter tip intact. 17:37 Inserted saline lock: 20 gauge in left antecubital area, using aseptic technique. Blood nj1 collected. 17:55 Sangita Weinstein, RN is Primary Nurse. nj1 18:54 CT Abd/Pelvis - IV Contrast Only In Process Unspecified. EDMS 20:10 No provider procedures requiring assistance completed. IV discontinued, intact, nj1 bleeding controlled. Administered Medications: 17:50 Drug: NS 0.9% IV 1000 ml IV at 1 bolus Per protocol; 1000 mL bolus Route: IV; Rate: 1 nj1 bolus; Site: left antecubital; 20:00 Follow up: Response: No adverse reaction; IV Status: Completed infusion; IV Intake: nj1 1000ml 17:50 Drug: Ondansetron IVP 4 mg IVP once; over 2 minutes Route: IVP; Site: left antecubital; nj1 18:30 Follow up: Response: No adverse reaction; Nausea is decreased nj1 17:52 Drug: TORadol - Ketorolac IVP 15 mg IVP once Route: IVP; Site: left antecubital; nj1 18:30 Follow up: Response: No adverse reaction; Pain is unchanged, physician notified nj1 17:53 Drug: Famotidine IVP 20 mg IVP once; dilute with 10 mL 0.9% NaCl; give over 2 minutes nj1 Route: IVP; Site: left antecubital; 18:30 Follow up: Response: No adverse reaction nj1 18:32 Drug: morphine IVP or IV 4 mg IVP once over 4 mins Route: IVP; Infused Over: 4 mins; nj1 Site: left antecubital; 19:15 Follow up: Response: No adverse reaction; Pain is unchanged, physician notified nj1 19:26 Drug: morphine IVP or IV 4 mg IVP once over 4 mins Route: IVP; Infused Over: 4 mins; nj1 Site: left antecubital; 20:10 Follow up: Response: No adverse reaction; Pain is decreased nj1 Medication: 20:10 VIS not applicable for this client. nj1 Intake: 20:00 IV: 1000ml; Total: 1000ml. nj1 Outcome: 19:15 Discharge ordered by MD. ryan 20:10 Discharged to home ambulatory, with family, nj1 20:10 Condition: stable 20:10 Discharge instructions given to patient, Instructed on discharge instructions, follow up and referral plans. Demonstrated understanding of instructions, follow-up care, 20:16 Patient left the ED. nj1 Signatures: Dispatcher [employer] EDMS Anette León, FREIGHT CAR INSPECTOR-C FREIGHT CAR INSPECTOR-CkDolly Oakley, RN RN db Sangita Weinstein RN RN nj1 Marsha Laureano ae5 Corrections: (The following items were deleted from the chart) 17:19 17:18 Allergies: Morphine (Hives, rash); db db 19:16 19:11 Pulse 79bpm; Resp 18bpm; Pulse Ox 100%; Pain 10/26, Adult; nj1 nj1
--- NOTE | 2023-02-25 19:15 | EDPHYS ---
Physician Documentation [facility] Name: Misa Tony Age: 47 yrs Sex: Female : 1975 Arrival Date: 02/25/2023 Time: 17:03 Bed 19 Private MD: ED Physician Jose Dhaliwal HPI: 02/25 19:55 This 47 yrs old Female presents to ER via Ambulatory with complaints of Diarrhea, kb Vomiting. 19:55 Pt reports abd pain, diarrhea and nausea that started three days ago. Denies fever. kb States this pain is different than the pain she has had in the past. 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 ROS: 19:53 Constitutional: Negative for fever, chills, and weight loss, kb 19:53 Abdomen/GI: Positive for abdominal pain, nausea, vomiting, and diarrhea, 19:53 All other systems are negative, Exam: 19:53 Constitutional: This is a well developed, well nourished patient who is awake, alert, kb and in no acute distress. Head/Face: Normocephalic, atraumatic. ENT: Moist Mucous membranes Cardiovascular: Regular rate Respiratory: Respirations even and unlabored. No increased work of breathing. Talking in full sentences Skin: Warm, dry with normal turgor. Normal color. MS/ Extremity: Pulses equal, no cyanosis. Neurovascular intact. Full, normal range of motion. Neuro: Awake and alert, GCS 15, oriented to person, place, time, and situation. Moves all extremities. Normal gait. 19:53 Abdomen/GI: Inspection: abdomen appears normal, Bowel sounds: normal, Palpation: soft, in all quadrants, moderate abdominal tenderness, in the right upper quadrant and left upper quadrant, Vital Signs: 17:17 BP 148 / 76; Pulse 86; Resp 18; Temp 98.3(O); Pulse Ox 99% ; Weight 77.11 kg; Height 5 db ft. 5 in. ; Pain 9/10; 18:32 BP 135 / 88; Pulse 80; Resp 16; Pulse Ox 100% ; Pain 10/10; nj1 19:11 BP 140 / 106; Pulse 79; Resp 18; Pulse Ox 100% ; Pain 9/10; nj1 20:10 BP 138 / 94; Pulse 76; Resp 16; Pulse Ox 100% on R/A; Pain 9/10; nj1 17:17 Body Mass Index 28.29 (77.11 kg, 165.1 cm) db 17:17 Pain Scale: Adult db 18:32 Pain Scale: Adult nj1 19:11 Pain Scale: Adult nj1 20:10 Pain Scale: Adult nj1 MDM: 17:11 Patient medically screened. kb 19:54 Differential diagnosis: Nonspecific abd pain, gastritis, pancreatitis, viral kb gastroenteritis. Data reviewed: vital signs, nurses notes. Counseling: I had a detailed discussion with the patient and/or guardian regarding the historical points, exam findings, and any diagnostic results supporting the discharge/admit diagnosis, lab results, radiology results, the need for outpatient follow up, a family practitioner, to return to the emergency department if symptoms worsen or persist or if there are any questions or concerns that arise at home. 02/25 17:17 Order name: CBC with Diff; Complete Time: 19:44 kb 02/25 17:17 Order name: CMP; Complete Time: 18:32 kb 02/25 17:17 Order name: Lipase; Complete Time: 18:32 kb 02/25 17:17 Order name: Urinalysis w/ reflexes; Complete Time: 18:09 kb 02/25 19:43 Order name: CBC Smear Scan; Complete Time: 19:44 EDMS 02/25 17:17 Order name: CT Abd/Pelvis - IV Contrast Only; Complete Time: 19:11 kb 02/25 17:17 Order name: IV Saline Lock; Complete Time: 17:54 kb 02/25 17:17 Order name: Labs collected and sent; Complete Time: 17:54 kb Administered Medications: 17:50 Drug: NS 0.9% IV 1000 ml IV at 1 bolus Per protocol; 1000 mL bolus Route: IV; Rate: 1 nj1 bolus; Site: left antecubital; 20:00 Follow up: Response: No adverse reaction; IV Status: Completed infusion; IV Intake: nj1 1000ml 17:50 Drug: Ondansetron IVP 4 mg IVP once; over 2 minutes Route: IVP; Site: left antecubital; nj1 18:30 Follow up: Response: No adverse reaction; Nausea is decreased nj1 17:52 Drug: TORadol - Ketorolac IVP 15 mg IVP once Route: IVP; Site: left antecubital; nj1 18:30 Follow up: Response: No adverse reaction; Pain is unchanged, physician notified nj1 17:53 Drug: Famotidine IVP 20 mg IVP once; dilute with 10 mL 0.9% NaCl; give over 2 minutes nj1 Route: IVP; Site: left antecubital; 18:30 Follow up: Response: No adverse reaction nj1 18:32 Drug: morphine IVP or IV 4 mg IVP once over 4 mins Route: IVP; Infused Over: 4 mins; nj1 Site: left antecubital; 19:15 Follow up: Response: No adverse reaction; Pain is unchanged, physician notified nj1 19:26 Drug: morphine IVP or IV 4 mg IVP once over 4 mins Route: IVP; Infused Over: 4 mins; nj1 Site: left antecubital; 20:10 Follow up: Response: No adverse reaction; Pain is decreased nj1 Disposition Summary: 02/25/23 19:15 Discharge Ordered Notes: Location: Home kb Condition: Stable kb Diagnosis - Abdominal pain, Generalized kb Followup: kb - With: Emergency Department - When: As needed - Reason: Worsening of condition Followup: kb - With: Private Physician - When: 2 - 3 days - Reason: Recheck today's complaints, Continuance of care, Re-evaluation by your physician Discharge Instructions: - Discharge Summary Sheet kb - Abdominal Pain, Adult, [id number] kb Forms: - Medication Reconciliation Form kb - Thank You Letter kb - Antibiotic Education kb - Prescription Opioid Use kb - Patient Portal Instructions kb - Leadership Thank You Letter kb Signatures: Dispatcher [employer] Anette Pabon, ERICA-Tamiko MALDONADO-Dolly Silva, RN RN Sangita Fregoso RN RN nj1 Corrections: (The following items were deleted from the chart) 17:19 17:18 Allergies: Morphine (Hives, rash); db db 19:56 19:55 Pt reports abd pain, diarrhea and vomiting that started today. Denies fever. kb kb
[2023-02-25 19:42] LABS: Blood Morphology Comment NOT SEEN (NOT SEEN); Platelet Estimate ADEQ; White Blood Cell Scan OK (OK)
[2023-02-25 23:11] VITALS: BP 138/94; TEMP 98.3; O2SAT 100
== END ==
LOC: ER 17:03
DX: R10.84 Generalized abdominal pain (principal); R11.2 Nausea with vomiting, unspecified; R19.7 Diarrhea, unspecified
CPT/HCPCS: 36415; 74177; 80053; 81001; 83690; 85025; J2405; J7030; Q9967

== ENCOUNTER → 2023-04-03 | Emergency (ER) | payer SELFPAY ==
[~2023-04-03] MED LIST changes: -KETOROLAC 30 MG/ML INJ ONE
[2023-04-03 12:01] LABS: Absolute Lymphocytes (CBC) 2.5 K/uL (0.7-4.9); Hematocrit 36.9 % (36.0-45.0); Lymphocytes % 25.1 % (15.3-44.8); MCV 87.7 fL (80-100); Platelets 292 thou/uL (152-406); RBC Red Blood Cell Count 4.21 M/uL (3.86-4.86)
[2023-04-03 12:24] LABS: Albumin 3.5 g/dL (3.4-5.0); Bilirubin Total 0.6 mg/dL (0.2-1.0); Potassium 2.9 mEq/L (3.5-5.1); Protein, Total 8.2 g/dL (6.4-8.2); Troponin High Sensitivity 4.1 pg/mL (<58.9)
--- NOTE | 2023-04-03 12:52 | RAD REPORT ---
EXAM DESCRIPTION: Yue Single View04/03/2023 12:23 pm CLINICAL HISTORY: Chest pain COMPARISON: 2022 FINDINGS: The lungs appear clear of acute infiltrate. The heart is normal size IMPRESSION: No acute abnormalities displayed
--- NOTE | 2023-04-03 13:36 | RAD REPORT ---
EXAM DESCRIPTION: CT - Abdomen Pelvis W Contrast - 04/03/2023 1:07 pm CLINICAL HISTORY: ABD PAIN COMPARISON: Abdomen Pelvis W Contrast dated 02/25/2023; Abdomen Pelvis W Contrast dated 07/03/2021 ; Abdomen Pelvis W Contrast dated 06/08/2021; Abdomen Pelvis W Contrast dated 11/20/2020 TECHNIQUE: Thin cut axial CT imaging of the abdomen and pelvis was performed following intravenous a dministration of 100 mL Isovue 300. Multiplanar reformats were generated and reviewed. All CT scans are performed using dose optimization technique as appropriate and may include automated exposure control or mA/KV adjustment according to patient size. FINDINGS: No suspicious findings in the lung bases. The liver shows diffuse parenchymal hypoattenuation. Spleen, adrenal glands, and pancreas show no tonny picious findings. Gallbladder was surgically removed. Symmetric renal function is seen with no hydronephrosis or suspicious renal mass. No dilated bowel loops or bowel wall thickening. No free air, free fluid or inflammatory stranding. N o hernia, mass or bulky lymphadenopathy. The urinary bladder is without significant finding. No suspicious bony findings. IMPRESSION: No acute intra-abdominal process. Diffuse hepatic parenchymal hypoattenuation suggesting steatosis.
--- NOTE | 2023-04-03 13:53 | ER ---
Nurse's Notes [facility] Name: Misa Tony Age: 47 yrs Sex: Female : 1975 Arrival Date: 04/03/2023 Time: 11:17 Bed DX3 Private MD: Diagnosis: Chest pain, unspecified;Abdominal pain, unspecified;Vomiting, unspecified;Diarrhea, unspecified Presentation: 04/03 11:34 Chief complaint: Patient states: "I started with abdominal pain, nausea, vomiting, aa5 diarrhea but this morning around 4am I started having chest pain and my blood pressure was 206/175". 11:34 Coronavirus screen: diarrhea, nausea, vomiting. Ebola Screen: Patient denies travel to [facility] an Ebola-affected area in the 21 days before illness onset. Initial Sepsis Screen: Does the patient meet any 2 criteria? No. Patient's initial sepsis screen is negative. Does the patient have a suspected source of infection? No. Patient's initial sepsis screen is negative. Risk Assessment: Do you want to hurt yourself or someone else? Patient reports no desire to harm self or others. Onset of symptoms was April 03, 2023. 11:34 Acuity: ELADIO 3 aa5 11:34 Method Of Arrival: Ambulatory aa5 Historical: - Allergies: 11:35 No Known Allergies; aa5 - PMHx: 11:35 Bipolar disorder; blood clot in Axilla; Endometrosis; gastritis; GERD; Hypertension; aa5 Pancreatitis; Gastroparesis; - PSHx: 11:35 Cholecystectomy; hysterectomy; aa5 - Immunization history:: Adult Immunizations unknown. - Social history:: Smoking status: Patient denies any tobacco usage or history of. Patient/guardian denies using alcohol. - Family history:: not pertinent. - Hospitalizations: : No recent hospitalization is reported. Screenin:50 [facility] ED Fall Risk Assessment (Adult) Score/Fall Risk Level 0 - 2 = Low Risk. Abuse as6 screen: Denies threats or abuse. Denies injuries from another. Nutritional screening: No deficits noted. Tuberculosis screening: No symptoms or risk factors identified. Assessment: 13:28 Reassessment: Patient is alert, oriented x 3, equal unlabored respirations, skin aa5 warm/dry/pink. Vital Signs: 11:34 BP 171 / 93; Pulse 72; Resp 18 S; Temp 98.4(O); Pulse Ox 100% on R/A; Weight 74.84 kg aa5 (R); Height 5 ft. 5 in. (R); 14:41 BP 153 / 77; Pulse 74; Resp 16 S; Pulse Ox 100% on R/A; as6 11:34 Body Mass Index 27.46 (74.84 kg, 165.1 cm) aa5 ED Course: 11:19 Patient arrived in ED. im 11:20 Ibrahima Sam MD is Attending Physician. rn 11:34 Arm band placed on. aa5 11:38 Triage completed. aa5 11:50 EKG done, by ED staff, reviewed by Ibrahima Sam MD. aa5 11:57 CBC with Diff Sent. bc6 11:57 CMP Sent. bc6 11:57 Lipase Sent. bc6 11:57 Inserted saline lock: 20 gauge in left antecubital area, using aseptic technique. Blood bc6 collected. 12:25 XRAY Chest (1 view) In Process Unspecified. EDMS 13:09 CT Abd/Pelvis - IV Contrast Only In Process Unspecified. EDMS 14:50 Bed in low position. Call light in reach. Provided Education on: follow up, rx teaching as6 . 14:50 No provider procedures requiring assistance completed. IV discontinued, intact, as6 bleeding controlled, No redness/swelling at site. Pressure dressing applied. Administered Medications: 13:28 Drug: NS 0.9% IV 1000 ml IV at 1 bolus Per protocol; 1000 mL bolus Route: IV; Rate: 1 aa5 bolus; Site: left antecubital; 14:50 Follow up: Response: No adverse reaction; IV Status: Completed infusion; IV Intake: as6 1000ml 13:28 Drug: Famotidine IVP 20 mg IVP once; dilute with 10 mL 0.9% NaCl; give over 2 minutes aa5 Route: IVP; Site: left antecubital; 14:49 Follow up: Response: No adverse reaction as6 13:30 Drug: Ondansetron IVP 4 mg IVP once; over 2 minutes Route: IVP; Site: left antecubital; aa5 14:49 Follow up: Response: No adverse reaction as6 13:30 Drug: morphine IVP or IV 4 mg IVP once over 4 mins Route: IVP; Infused Over: 4 mins; aa5 Site: left antecubital; 14:49 Follow up: Response: No adverse reaction as6 14:38 Drug: morphine IVP or IV 4 mg IVP once over 4 mins Route: IVP; Infused Over: 4 mins; as6 Site: left antecubital; 14:50 Follow up: Response: No adverse reaction as6 Medication: 14:51 VIS not applicable for this client. as6 Intake: 14:50 IV: 1000ml; Total: 1000ml. as6 Outcome: 13:53 Discharge ordered by . rn 14:50 Discharged to home ambulatory, as6 14:50 Condition: stable 14:50 Discharge instructions given to patient, Instructed on discharge instructions, follow up and referral plans. medication usage, Demonstrated understanding of instructions, follow-up care, medications, Prescriptions given X 2, 14:51 Patient left the ED. as6 Signatures: Dispatcher [employer] EDMS Ibrahima Sam MD MD rn Calderon, Audri, RN RN aa5 Nick Polanco RN RN as6 Jackie Feliciano Felipa Aaron
--- NOTE | 2023-04-03 13:53 | EDPHYS ---
Physician Documentation [facility] Name: Misa Tony Age: 47 yrs Sex: Female : 1975 Arrival Date: 04/03/2023 Time: 11:17 Bed DX3 Private MD: ED Physician Ibrahima Sam HPI: 04/03 11:49 This 47 yrs old Female presents to ER via Ambulatory with complaints of rn Nausea/Vomiting/Diarrhea, Abdominal Pain, Chest Pain, Chest Tightness. 11:49 The patient presents to the emergency department with nausea, vomiting, diarrhea, rn abdominal pain, of the epigastric area. Onset: The symptoms/episode began/occurred 2 day(s) ago. Possible causes: unknown. The symptoms are aggravated by nothing. The symptoms are alleviated by nothing. Associated signs and symptoms: Pertinent positives: abdominal pain, diarrhea, nausea, vomiting, Pertinent negatives: fever, GI bleeding. Severity of symptoms: At their worst the symptoms were mild in the emergency department the symptoms are unchanged. The patient has not experienced similar symptoms in the past. The patient has not recently seen a physician. Patient reports epigastric abdominal pain associated with nausea/vomiting/diarrhea. Vomiting and diarrhea started 2 days ago. Abdominal pain worse today and noticed blood pressure very high so came in with high blood pressure. Reports pain radiates to the chest. Patient with history of gastroparesis and pancreatitis but states this feels different. No blood in emesis or stool.. Historical: - Allergies: 11:35 No Known Allergies; aa5 - PMHx: 11:35 Bipolar disorder; blood clot in Axilla; Endometrosis; gastritis; GERD; Hypertension; aa5 Pancreatitis; Gastroparesis; - PSHx: 11:35 Cholecystectomy; hysterectomy; aa5 - Immunization history:: Adult Immunizations unknown. - Social history:: Smoking status: Patient denies any tobacco usage or history of. Patient/guardian denies using alcohol. - Family history:: not pertinent. - Hospitalizations: : No recent hospitalization is reported. ROS: 11:49 Constitutional: Negative for fever, chills, and weight loss, Cardiovascular: Negative rn for palpitations, and edema, Respiratory: Negative for shortness of breath, cough, wheezing, and pleuritic chest pain, Abdomen/GI: Positive for epigastric abdominal pain/nausea/vomiting/diarrhea MS/Extremity: Negative for injury and deformity, Skin: Negative for injury, rash, and discoloration, Neuro: Negative for headache, weakness, numbness, tingling, and seizure, Exam: 11:49 Constitutional: This is a well developed, well nourished patient who is awake, alert, rn and in no acute distress. Head/Face: Normocephalic, atraumatic. Cardiovascular: Regular rate and rhythm. No pulse deficits. Respiratory: No increased work of breathing, no retractions or nasal flaring. Abdomen/GI: Soft, mild epigastric tenderness. No peritoneal signs, no distention MS/ Extremity: Pulses equal, no cyanosis. Neuro: Awake and alert, GCS 15 Vital Signs: 11:34 BP 171 / 93; Pulse 72; Resp 18 S; Temp 98.4(O); Pulse Ox 100% on R/A; Weight 74.84 kg aa5 (R); Height 5 ft. 5 in. (R); 14:41 BP 153 / 77; Pulse 74; Resp 16 S; Pulse Ox 100% on R/A; as6 11:34 Body Mass Index 27.46 (74.84 kg, 165.1 cm) aa5 MDM: 11:20 Patient medically screened. rn 13:51 Differential diagnosis: Nonspecific abd pain, gastritis, cholecystitis, pancreatitis, rn diverticulitis, viral gastroenteritis, gastroenteritis, Acute [place], pericarditis, esophagitis, anxiety. Data reviewed: vital signs, nurses notes, lab test result(s), EKG, radiologic studies, CT scan, plain films, and as a result, I will discharge patient. Care significantly affected by the following chronic conditions: Hypertension. Counseling: I had a detailed discussion with the patient and/or guardian regarding the historical points, exam findings, and any diagnostic results supporting the discharge/admit diagnosis, lab results, radiology results, the need for outpatient follow up, to return to the emergency department if symptoms worsen or persist or if there are any questions or concerns that arise at home. Response to treatment: the patient's symptoms have markedly improved after treatment, Patient sitting comfortably with legs crossed in chair using her cell phone to play games, and as a result, I will discharge patient. Special discussion: Based on the patient's history, exam, and Dx evaluation, there is no indication for emergent intervention or inpatient Tx. It is understood by the patient/guardian that if the Sx's persist or worsen they need to return immediately for re-evaluation. Based on the patient's Hx, exam, and Dx evaluation, there is no indication for emergent surgery or inpatient Tx. It is understood by the patient/guardian that if the Sx's persist or worsen they need to return immediately for re-evaluation. I discussed with the patient/guardian in detail that at this point there is no indication for admission to the hospital. It is understood, however, that if the symptoms persist or worsen the patient needs to return immediately for re-evaluation. 13:51 ED course: I have personally reviewed all of the results, including but not limited to rn blood tests and imaging deemed necessary to safely discharge this patient at this time. All results given to and printed out for patient. I personally went over all the results with the patient and answered all questions. Patient will follow-up with PCP and or specialist as discussed. Return precautions given and understood.. 04/03 11:43 Order name: CBC with Diff; Complete Time: 12:34 04/03 11:43 Order name: CMP; Complete Time: 12:34 04/03 11:43 Order name: Lipase; Complete Time: 12:34 04/03 11:43 Order name: Troponin High Sensitivity; Complete Time: 12:34 04/03 11:43 Order name: CT Abd/Pelvis - IV Contrast Only; Complete Time: 13:47 04/03 11:43 Order name: XRAY Chest (1 view); Complete Time: 13:47 04/03 11:43 Order name: EKG; Complete Time: 11:44 04/03 11:43 Order name: IV Saline Lock; Complete Time: 11:57 04/03 11:43 Order name: Labs collected and sent; Complete Time: 11:57 04/03 11:43 Order name: EKG - Nurse/Tech; Complete Time: 11:58 aa5 Administered Medications: 13:28 Drug: NS 0.9% IV 1000 ml IV at 1 bolus Per protocol; 1000 mL bolus Route: IV; Rate: 1 aa5 bolus; Site: left antecubital; 14:50 Follow up: Response: No adverse reaction; IV Status: Completed infusion; IV Intake: as6 1000ml 13:28 Drug: Famotidine IVP 20 mg IVP once; dilute with 10 mL 0.9% NaCl; give over 2 minutes aa5 Route: IVP; Site: left antecubital; 14:49 Follow up: Response: No adverse reaction as6 13:30 Drug: Ondansetron IVP 4 mg IVP once; over 2 minutes Route: IVP; Site: left antecubital; aa5 14:49 Follow up: Response: No adverse reaction as6 13:30 Drug: morphine IVP or IV 4 mg IVP once over 4 mins Route: IVP; Infused Over: 4 mins; aa5 Site: left antecubital; 14:49 Follow up: Response: No adverse reaction as6 14:38 Drug: morphine IVP or IV 4 mg IVP once over 4 mins Route: IVP; Infused Over: 4 mins; as6 Site: left antecubital; 14:50 Follow up: Response: No adverse reaction as6 Disposition Summary: 04/03/23 13:53 Discharge Ordered Notes: Location: Home rn Problem: new rn Symptoms: have improved rn Condition: Stable rn Diagnosis - Chest pain, unspecified rn - Abdominal pain, unspecified rn - Vomiting, unspecified rn - Diarrhea, unspecified rn Followup: rn - With: Private Physician - When: As needed - Reason: Recheck today's complaints, Re-evaluation by your physician Discharge Instructions: - Discharge Summary Sheet rn - Abdominal Pain, Adult rn - Nonspecific Chest Pain, Adult rn - Pain Without a Known Cause rn Forms: - Medication Reconciliation Form rn - Thank You Letter rn - Antibiotic rn coronary care unit - Prescription Opioid Use rn - Patient Portal Instructions rn - Leadership Thank You Letter rn Prescriptions: - ondansetron 4 mg Oral Tablet,disintegrating - take 1 tablet ORAL route every 8 hours As needed; 10 tablet; Refills: 0, rn Product Selection Permitted - Protonix 40 mg Oral Tablet - take 1 tablet ORAL route once daily; 30 tablet; Refills: 0, Product Selection rn Permitted Signatures: Dispatcher [employer] Ibrahima Blake MD MD rn Calderon, Audri RN RN aa5 Nick Polanco RN RN as6
[2023-04-03 14:59] VITALS: BP 153/77; TEMP 98.4; O2SAT 100
--- NOTE | 2023-04-03 15:00 | EKG ---
Test Date: 2023-04-03 Test Time: 11:43:23 Associate Civil Engineer: YONATHAN MEASUREMENT RESULTS: Intervals: Rate: 68 NV: 164 QRSD: 96 QT: 404 QTc: 429 Porter: P: 49 NV: 164 QRS: 43 T: 18 INTERPRETIVE STATEMENTS: Normal sinus rhythm Nonspecific T wave abnormality Abnormal ECG Compared to ECG 07/15/2021 18:56:57 T-wave abnormality now present ST (T wave) deviation no longer present Electronically Signed On 04-03-23 14:59:16 TENNIS DESK TEAM MEMBER by Rd Garsia
== END ==
LOC: ER 11:17
DX: R07.89 Other chest pain (principal); R10.9 Unspecified abdominal pain; R11.10 Vomiting, unspecified; R19.7 Diarrhea, unspecified
CPT/HCPCS: 36415; 71045; 74177; 80053; 83690; 84484; 85025; 93005; 96361; 96374; 96375; 99284; J2405; J7030; Q9967

== ENCOUNTER 2023-05-28 09:48 | Emergency (ER) | payer OTHER ==
[2023-05-28 10:52] LABS: Absolute Basophils 0.1 K/uL (0-0.5); Absolute Eosinophils 0.1 K/uL (0-0.5); Absolute Lymphocytes (CBC) 3.3 K/uL (0.7-4.9); Absolute Monocytes 0.7 K/uL (0.1-1.3); Absolute Neutrophil 6.3 K/uL (1.8-8.0); Basophils % 0.8 % (0-1.3); Eosinophils % 0.7 % (0-4.4); Hematocrit 39.3 % (36.0-45.0); Hemoglobin 12.9 g/dL (12.0-15.0); Lymphocytes % 31.6 % (15.3-44.8); MCH 29.4 pg (27.0-35.0); MCHC 32.8 g/dL (32.0-36.0); MCV 89.4 fL (80-100); MPV 9.5 fL (7.6-11.3); Monocytes % 6.9 % (3.3-12.3); Platelets 309 thou/uL (152-406); Red Cell Distribution Width 14.6 % (12.1-15.2)
[2023-05-28 10:53] LABS: Specific Gravity 1.015 (1.005-1.030); Sqamous Epithelial <5 /HPF (None Seen); Urine Bacteria None Seen /HPF (<20); Urine Bilirubin NEGATIVE (Negative); Urine Blood Trace (Negative); Urine Clarity Turbid (Clear); Urine Color Light-Yellow (Yellow); Urine Culture Reflex Order NOT NEEDED; Urine Glucose NEGATIVE (Negative); Urine Ketones NEGATIVE (Negative); Urine Microscopic Reflex YN ORDER UMIC; Urine Mucus Slight /HPF (None Seen); Urine Nitrite NEGATIVE (Negative); Urine Protein NEGATIVE (Negative); Urine RBC <5 /HPF (None Seen); Urine Urobilinogen Normal (Normal); Urine WBC <5 /HPF (<5); Urine pH 6.5 (5.0-7.0)
[2023-05-28] MEDS ORDERED: ONDANSETRON 4 MG/2 ML VIAL ONE ×2 (10:56→12:28)
[2023-05-28] MEDS ORDERED: FAMOTIDINE 20 MG/2 ML VIAL IV ONE (10:57)
[2023-05-28] MEDS ORDERED: HYDROMORPHONE HCL 1 MG/ML INJ ONE ×2 (10:57→11:34)
[2023-05-28] MEDS ORDERED: NA CHLORIDE 0.9% 1,000 ML ONE (10:57)
[2023-05-28 11:25] LABS: Albumin 3.8 g/dL (3.4-5.0); Albumin/Globulin Ratio 0.9 (1.1-1.8); Anion Gap 7.2 mEq/L (5.0-15.0); Bilirubin Total 0.5 mg/dL (0.2-1.0); Globulin 4.3 g/dL (2.3-3.5); Potassium 3.2 mEq/L (3.5-5.1); Protein, Total 8.1 g/dL (6.4-8.2)
--- NOTE | 2023-05-28 11:52 | RAD REPORT ---
EXAM DESCRIPTION: CTAbdomen Pelvis W Contrast - 05/28/2023 11:41 am CLINICAL HISTORY: ABD PAIN COMPARISON: Abdomen Pelvis W Contrast dated 04/03/2023; Abdomen Pelvis W Contrast dated 02/25/2023 ; Abdomen Pelvis W Contrast dated 07/03/2021; Abdomen Pelvis W Contrast dated 06/08/2021 TECHNIQUE: CT of the abdomen and pelvis was performed. All CT scans are performed using dose optimization technique as appropriate and may include automated exposure control or mA/KV adjustment according to patient size. FINDINGS: Lower chest: No acute abnormality. Liver: Hepatic steatosis. Biliary: Cholecystectomy. Extrahepatic biliary duct dilatation is similar prior. Small cystic duct re mnant. Stomach: Ingested approximately 2 cm linear metallic density in the stomach. Duodenum: No significant focal abnormality. Pancreas: Similar diffuse low-attenuation of the pancreatic parenchyma. Spleen: No significant abnormality. Adrenal: No suspicious lesions. Kidney/ureter: No hydronephrosis. No renal calculi. Retroperitoneum: No retroperitoneal adenopathy. Vascular: No aneurysm. Bowel: Normal appendix. No bowel obstruction.. Peritoneum: No ascites or free air. Bladder: Grossly unremarkable. Reproductive: Hysterectomy Bones: No acute fracture. Other: n/a IMPRESSION: No acute intra-abdominal or pelvic finding. 2 cm ingested metallic density in the stomac h. Hepatic and pancreatic fatty infiltration is unchanged. Chronic extrahepatic biliary duct dilatation following cholecystectomy.
[2023-05-28] MEDS ORDERED: NS KCL 20MEQ 1,000 ML IV ONE (13:06)
[2023-05-28] MEDS ORDERED: PROMETHAZINE INJ 25 MG/ML AMP ONE (13:06)
--- NOTE | 2023-05-28 14:20 | ER ---
Nurse's Notes [facility] Name: Misa Tony Age: 47 yrs Sex: Female : 1975 Arrival Date: 05/28/2023 Time: 09:48 Bed 7 Private MD: Aleta Araujo Diagnosis: Epigastric abdominal tenderness;Vomiting;Nausea;Gastroparesis;Foreign body in stomach-2 cm metallic , unknow signifigance Presentation: 05/27 10:10 Chief complaint: Patient states: Abdominal pain for 2-3 days with N/V/D. Coronavirus ll1 screen: Client denies travel out of the [place] in the last 14 days. At this time, the client does not indicate any symptoms associated with coronavirus-19. Ebola Screen: Patient denies travel to an Ebola-affected area in the 21 days before illness onset. Initial Sepsis Screen: Does the patient meet any 2 criteria? No. Patient's initial sepsis screen is negative. Does the patient have a suspected source of infection? No. Patient's initial sepsis screen is negative. Risk Assessment: Do you want to hurt yourself or someone else? Patient reports no desire to harm self or others. 10:10 Method Of Arrival: Ambulatory ll1 10:10 Acuity: ELADIO 3 ll1 10:19 Onset of symptoms was May 25, 2023. ll1 Triage Assessment: 10:11 General: Appears in no apparent distress. Behavior is calm, cooperative, appropriate ll1 for age. Pain: Complains of pain in abdomen. GI: Reports lower abdominal pain, upper abdominal pain. 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 - Infectious Disease History:: Denies. - Family history:: not pertinent. - Social history:: Smoking status: Patient denies any tobacco usage or history of. Screenin:07 [facility] ED Fall Risk Assessment (Adult) History of falling in the last 3 months, mb9 including since admission No falls in past 3 months (0 pts) Confusion or Disorientation No (0 pts) Intoxicated or Sedated No (0 pts) Impaired Gait No (0 pts) Mobility Assist Device Used No (0 pt) Altered Elimination No (0 pt) Score/Fall Risk Level 0 - 2 = Low Risk Oriented to surroundings, Maintained a safe environment, Educated pt \T\ family on fall prevention, incl call for assistance when getting out of bed. Abuse screen: Denies threats or abuse. Nutritional screening: No deficits noted. Tuberculosis screening: No symptoms or risk factors identified. Assessment: 11:04 General: Appears in no apparent distress. Behavior is calm, cooperative. Pain: mb9 Complains of pain in abdomen Pain does not radiate. Neuro: Killian Agitation-Sedation Scale (RASS): 0 - Alert and Calm Level of Consciousness is awake, alert, obeys commands, Oriented to person, place, time, situation, Appropriate for age. Cardiovascular: Heart tones S1 S2 present Patient's skin is warm and dry. Respiratory: Airway is patent Respiratory effort is even, unlabored, Respiratory pattern is regular, symmetrical, Breath sounds are clear bilaterally. GI: Abdomen is round non-distended, Bowel sounds present X 4 quads. Abd is soft Abdomen is tender to palpation X 4 quads. Reports diarrhea, nausea, vomiting. : No signs and/or symptoms were reported regarding the genitourinary system. EENT: No signs and/or symptoms were reported regarding the EENT system. Derm: Skin is pink, warm \T\ dry. Musculoskeletal: Range of motion: intact in all extremities. 12:31 GI: Pt is actively vomiting bile, ERP notified. mb9 13:44 Reassessment: No changes from previously documented assessment. Patient and/or family mb9 updated on plan of care and expected duration. Pain level reassessed. Patient is alert, oriented x 3, equal unlabored respirations, skin warm/dry/pink. 14:28 Reassessment: Patient and/or family updated on plan of care and expected duration. Pain mb9 level reassessed. Patient is alert, oriented x 3, equal unlabored respirations, skin warm/dry/pink. Patient states feeling better. Patient states symptoms have improved. Vital Signs: 10:19 BP 147 / 99; Pulse 66; Resp 18; Temp 97.8; Pulse Ox 100% on R/A; Weight 73.94 kg; ll1 Height 5 ft. 5 in. ; Pain 9/10; 11:05 BP 155 / 98; Pulse 74; Resp 16; Pulse Ox 100% on R/A; mb9 13:44 BP 153 / 98; Pulse 84; Resp 18; Pulse Ox 100% ; mb9 14:28 BP 151 / 91; Pulse 78; Resp 16; Pulse Ox 100% on R/A; mb9 10:19 Body Mass Index 27.12 (73.94 kg, 165.1 cm) ll1 10:19 Pain Scale: Adult ll1 ED Course: 09:52 Patient arrived in ED. mr 09:52 Aleta Araujo is Private Physician. mr 10:10 Arm band placed on. ll1 10:11 Triage completed. ll1 10:15 Carlos Pradhan MD is Attending Physician. kadeem 10:41 CBC with Diff Sent. bc6 10:41 CMP Sent. bc6 10:41 Lipase Sent. bc6 10:41 Initial lab(s) drawn, by il, sent to lab. Inserted saline lock: 20 gauge in left bc6 antecubital area, using aseptic technique. Blood collected. 10:43 Melba Corea, RN is Primary Nurse. mb9 11:08 Placed in gown. Bed in low position. Call light in reach. Side rails up X 1. Provided mb9 Education on: press call light if needing anything. Client placed on continuous cardiac and pulse oximetry monitoring. NIBP monitoring applied. 11:08 No provider procedures requiring assistance completed. mb9 11:[address] via wheelchair. mb9 11:41 CT Abd/Pelvis - IV Contrast Only In Process Unspecified. EDMS 14:17 Aleta Araujo is Referral Physician. kadeem 14:17 Monica Mahoney MD is Referral Physician. kadeem 14:29 IV discontinued, intact, bleeding controlled, No redness/swelling at site. Pressure mb9 dressing applied. Administered Medications: 11:00 Drug: NS 0.9% IV 1000 ml IV at 1 bolus Per protocol; 1000 mL bolus Route: IV; Rate: 1 mb9 bolus; Site: left antecubital; 14:32 Follow up: Response: No adverse reaction; IV Status: Completed infusion mb9 11:00 Drug: Famotidine IVP 20 mg IVP once; dilute with 10 mL 0.9% NaCl; give over 2 minutes mb9 Route: IVP; Site: left antecubital; 11:36 Follow up: Response: No adverse reaction mb9 11:02 Drug: Ondansetron IVP 4 mg IVP once; over 2 minutes Route: IVP; Site: left antecubital; mb9 11:36 Follow up: Response: No adverse reaction mb9 11:03 Drug: HYDROmorphone IVP 1 mg IVP once Route: IVP; Site: left antecubital; mb9 11:36 Follow up: Response: No adverse reaction mb9 11:36 Drug: HYDROmorphone IVP 1 mg IVP once Route: IVP; Site: left antecubital; mb9 12:31 Follow up: Response: No adverse reaction mb9 12:31 Drug: Ondansetron IVP 4 mg IVP once; over 2 minutes Route: IVP; Site: left antecubital; mb9 13:11 Follow up: Response: No adverse reaction mb9 13:08 Drug: Promethazine IVP 25 mg IVP once Route: IVP; Site: left antecubital; mb9 13:11 Follow up: Response: No adverse reaction mb9 13:11 Drug: NS 0.9% with KCl IV 20 mEq/L 1000 ml IV at 500 ml/hr continuous Route: IV; Rate: mb9 500 ml/hr; Site: left antecubital; 14:29 Follow up: Response: No adverse reaction; IV Status: Order to discontinue infusion mb9 Medication: 11:08 VIS not applicable for this client. mb9 Outcome: 14:19 Discharge ordered by MD. quan 14:29 Discharged to home ambulatory, with family, mb9 14:29 Condition: stable 14:29 Discharge instructions given to patient, family, Instructed on discharge instructions, follow up and referral plans. Demonstrated understanding of instructions, follow-up care, medications, Prescriptions given X 2, 14:32 Patient left the ED. mb9 Signatures: Dispatcher [employer] EDRI Carlos Pradhan MD MD cha Rivera, Mary, Reg Reg mr Garfield Dudley RN RN ll1 Melba Corea, RN RN mb9 Jackie Feliciano6 Corrections: (The following items were deleted from the chart) 10:20 10:10 Chief complaint: Patient states: Abdominal pain for days. ll1 ll1
--- NOTE | 2023-05-28 14:20 | EDPHYS ---
Physician Documentation [facility] Name: Misa Tony Age: 47 yrs Sex: Female : 1975 Arrival Date: 05/28/2023 Time: 09:48 Bed 7 Private MD: Aleta Araujo ED Physician Carlos Pradhan HPI: 05/27 14:11 This 47 yrs old Female presents to ER via Ambulatory with complaints of kadeem Abdominal Pain. 14:11 The patient presents with abdominal pain in the upper abdomen, in the lower abdomen. kadeem Onset: The symptoms/episode began/occurred 3 day(s) ago. The patient presents to the emergency department with nausea, vomiting, abdominal pain, described as crampy. Onset: The symptoms/episode began/occurred 3 day(s) ago. Possible causes: flare up of bowel problem, Crohn's disease, ulcerative colitis, irritable bowel disease. The symptoms are aggravated by nothing. The symptoms are alleviated by nothing. Associated signs and symptoms: Pertinent positives: abdominal pain, nausea, vomiting. The symptoms do not radiate. Modifying factors: The symptoms are alleviated by nothing, the symptoms are aggravated by food. 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 - Infectious Disease History:: Denies. - Family history:: not pertinent. - Social history:: Smoking status: Patient denies any tobacco usage or history of. ROS: 14:11 Constitutional: Negative for fever, chills, and weight loss, Eyes: Negative for injury, kadeem pain, redness, and discharge, ENT: Negative for injury, pain, and discharge, Neck: Negative for injury, pain, and swelling, Cardiovascular: Negative for chest pain, palpitations, and edema, Respiratory: Negative for shortness of breath, cough, wheezing, and pleuritic chest pain, Back: Negative for injury and pain, : Negative for injury, bleeding, discharge, and swelling, MS/Extremity: Negative for injury and deformity, Skin: Negative for injury, rash, and discoloration, Neuro: Negative for headache, weakness, numbness, tingling, and seizure, Psych: Negative for depression, anxiety, suicide ideation, homicidal ideation, and hallucinations, Allergy/Immunology: Negative for hives, rash, and allergies, Endocrine: Negative for neck swelling, polydipsia, polyuria, polyphagia, and marked weight changes, Hematologic/Lymphatic: Negative for swollen nodes, abnormal bleeding, and unusual bruising, 14:11 Abdomen/GI: Positive for abdominal pain, nausea and vomiting, abdominal cramps, of the epigastric area, right upper quadrant and left upper quadrant, Exam: 14:11 Constitutional: This is a well developed, well nourished patient who is awake, alert, kadeem and in no acute distress. Head/Face: Normocephalic, atraumatic. Eyes: Pupils equal round and reactive to light, extra-ocular motions intact. Lids and lashes normal. Conjunctiva and sclera are non-icteric and not injected. Cornea within normal limits. Periorbital areas with no swelling, redness, or edema. ENT: Nares patent. No nasal discharge, no septal abnormalities noted. Tympanic membranes are normal and external auditory canals are clear. Oropharynx with no redness, swelling, or masses, exudates, or evidence of obstruction, uvula midline. Mucous membranes moist. Neck: Trachea midline, no thyromegaly or masses palpated, and no cervical lymphadenopathy. Supple, full range of motion without nuchal rigidity, or vertebral point tenderness. No Meningismus. Chest/axilla: Normal chest wall appearance and motion. Nontender with no deformity. No lesions are appreciated. Cardiovascular: Regular rate and rhythm with a normal S1 and S2. No gallops, murmurs, or rubs. Normal PMI, no JVD. No pulse deficits. Respiratory: Lungs have equal breath sounds bilaterally, clear to auscultation and percussion. No rales, rhonchi or wheezes noted. No increased work of breathing, no retractions or nasal flaring. Back: No spinal tenderness. No costovertebral tenderness. Full range of motion. Skin: Warm, dry with normal turgor. Normal color with no rashes, no lesions, and no evidence of cellulitis. MS/ Extremity: Pulses equal, no cyanosis. Neurovascular intact. Full, normal range of motion. Neuro: Awake and alert, GCS 15, oriented to person, place, time, and situation. Cranial nerves II-XII grossly intact. Motor strength 5/5 in all extremities. Sensory grossly intact. Cerebellar exam normal. Normal gait. Psych: Awake, alert, with orientation to person, place and time. Behavior, mood, and affect are within normal limits. 14:11 Abdomen/GI: Inspection: abdomen appears normal, Vital Signs: 10:19 BP 147 / 99; Pulse 66; Resp 18; Temp 97.8; Pulse Ox 100% on R/A; Weight 73.94 kg; ll1 Height 5 ft. 5 in. ; Pain 9/10; 11:05 BP 155 / 98; Pulse 74; Resp 16; Pulse Ox 100% on R/A; mb9 13:44 BP 153 / 98; Pulse 84; Resp 18; Pulse Ox 100% ; mb9 14:28 BP 151 / 91; Pulse 78; Resp 16; Pulse Ox 100% on R/A; mb9 10:19 Body Mass Index 27.12 (73.94 kg, 165.1 cm) ll1 10:19 Pain Scale: Adult ll1 MDM: 10:15 Patient medically screened. kadeem 14:14 Differential diagnosis: Nonspecific abd pain, pancreatitis, viral gastroenteritis, kadeem diverticulitis, gastritis, gastroesophageal reflux disease, GI Bleed, Hepatitis, Irritable bowel syndrome, Mesenteric ischemia or infarction, non-specific abd pain, pancreatitis, Peptic Ulcer Disease, Peritonitis, urinary tract infection. Data reviewed: vital signs, nurses notes, lab test result(s), radiologic studies, CT scan. Consideration of Admission/Observation Escalation of care including admission/observation considered. I considered the following discharge prescriptions or medication management in the emergency department Medications were administered in the Emergency Department. See MAR. Independent interpretation of the following test(s) in the Emergency Department CT Scan: My interpretation is ct abd/pelvis. Test considered but Not performed: EKG: no ekg. Historians other than the Patient: Spouse/Significant Other: iman shane well informed. Care significantly affected by the following chronic conditions: Hypertension, Obesity, bipolar, dvt, gastritis, gastroparesis, endometrosis. 05/27 10:20 Order name: CBC with Diff; Complete Time: 12:45 kadeem 05/27 10:20 Order name: CMP; Complete Time: 12:45 kadeem 05/27 10:20 Order name: Lipase; Complete Time: 12:45 [facility] 05/27 10:20 Order name: Urinalysis w/ reflexes; Complete Time: 12:45 [facility] 05/27 10:20 Order name: CT Abd/Pelvis - IV Contrast Only; Complete Time: 12:45 [facility] 05/27 10:20 Order name: IV Saline Lock; Complete Time: 10:41 [facility] 05/27 10:20 Order name: Labs collected and sent; Complete Time: 10:41 [facility] Administered Medications: 11:00 Drug: NS 0.9% IV 1000 ml IV at 1 bolus Per protocol; 1000 mL bolus Route: IV; Rate: 1 mb9 bolus; Site: left antecubital; 14:32 Follow up: Response: No adverse reaction; IV Status: Completed infusion mb9 11:00 Drug: Famotidine IVP 20 mg IVP once; dilute with 10 mL 0.9% NaCl; give over 2 minutes mb9 Route: IVP; Site: left antecubital; 11:36 Follow up: Response: No adverse reaction mb9 11:02 Drug: Ondansetron IVP 4 mg IVP once; over 2 minutes Route: IVP; Site: left antecubital; mb9 11:36 Follow up: Response: No adverse reaction mb9 11:03 Drug: HYDROmorphone IVP 1 mg IVP once Route: IVP; Site: left antecubital; mb9 11:36 Follow up: Response: No adverse reaction mb9 11:36 Drug: HYDROmorphone IVP 1 mg IVP once Route: IVP; Site: left antecubital; mb9 12:31 Follow up: Response: No adverse reaction mb9 12:31 Drug: Ondansetron IVP 4 mg IVP once; over 2 minutes Route: IVP; Site: left antecubital; mb9 13:11 Follow up: Response: No adverse reaction mb9 13:08 Drug: Promethazine IVP 25 mg IVP once Route: IVP; Site: left antecubital; mb9 13:11 Follow up: Response: No adverse reaction mb9 13:11 Drug: NS 0.9% with KCl IV 20 mEq/L 1000 ml IV at 500 ml/hr continuous Route: IV; Rate: mb9 500 ml/hr; Site: left antecubital; 14:29 Follow up: Response: No adverse reaction; IV Status: Order to discontinue infusion mb9 Disposition Summary: 05/28/23 14:19 Discharge Ordered Notes: Location: Home kadeem Problem: new kadeem Symptoms: have improved kadeem Condition: Stable kadeem Diagnosis - Epigastric abdominal tenderness kadeem - Vomiting kadeem - Nausea kadeem - Gastroparesis kadeem - Foreign body in stomach - 2 cm metallic , unknow signifigance kadeem Followup: kadeem - With: Aleta Araujo - When: 2 - 3 days - Reason: Recheck today's complaints, Continuance of care, Re-evaluation by your physician Followup: kadeem - With: Monica Mahoney MD - When: 2 - 3 days - Reason: Recheck today's complaints, Re-evaluation by your physician Discharge Instructions: - Discharge Summary Sheet kadeem - Swallowed Foreign Body, Adult kadeem - Swallowed Foreign Body, Adult, [id number] kadeem - Foreign Body kadeem - Vomiting, Adult kadeem - Gastroparesis kadeem Forms: - Medication Reconciliation Form kadeem - Thank You Letter kadeem - Antibiotic Education kadeem - Prescription Opioid Use kadeem - Patient Portal Instructions kadeem - Leadership Thank You Letter [facility] Prescriptions: - promethazine 25 mg Oral tablet - take 1 tablet ORAL route every 4 to 6 hours as needed for sedation; 20 tablet; kadeem Refills: 0, Product Selection Permitted - Protonix 40 mg Oral Tablet - take 1 tablet ORAL route once daily; 30 tablet; Refills: 0, Product Selection kadeem Permitted Signatures: Dispatcher [employer] EDMS Carlos Pradhan MD MD cha Lewis, Lynsay RN RN ll1 Melba Corea RN RN mb9 Corrections: (The following items were deleted from the chart) 10:20 10:20 CBC+H.LAB.BRZ ordered. EDMS EDMS 10:20 10:20 COMPREHENSIVE METABOLIC PANEL+C.LAB.BRZ ordered. EDMS EDMS 10:20 10:20 LIPASE+C.LAB.BRZ ordered. EDMS EDMS 10:20 10:20 Urinalysis+U.LAB.BRZ ordered. EDMS EDMS 10:20 10:20 Abdomen Pelvis W Con+CT.RAD.BRZ ordered. EDMS EDMS
[2023-05-28 15:49] VITALS: BP 151/91; TEMP 97.8; O2SAT 100
== END 2023-05-28 14:32 | disposition home or self-care (01) ==
LOC: ER 09:48
DX: K31.84 Gastroparesis (principal); T18.2XXA Foreign body in stomach, initial encounter; R11.2 Nausea with vomiting, unspecified; Z88.5 Allergy status to narcotic agent
CPT/HCPCS: 96361; 85025; 81001; 36415; 83690; 80053; 74177; 96375; 96374; 99285; Q9967; J2550; J1170 ×2; J2405 ×2; J7030; J3480

== ENCOUNTER 2023-09-22 17:24 | Emergency (ER) | payer OTHER ==
[2023-09-22 18:44] LABS: Specific Gravity < 1.005 (1.005-1.030); Sqamous Epithelial <5 /HPF (None Seen); Urine Bacteria None Seen /HPF (<20); Urine Bilirubin NEGATIVE (Negative); Urine Blood Negative (Negative); Urine Clarity Turbid (Clear); Urine Color Colorless (Yellow); Urine Culture Reflex Order NOT NEEDED; Urine Glucose NEGATIVE (Negative); Urine Ketones NEGATIVE (Negative); Urine Microscopic Reflex YN ORDER UMIC; Urine Nitrite NEGATIVE (Negative); Urine Protein NEGATIVE (Negative); Urine RBC None Seen /HPF (None Seen); Urine Urobilinogen Normal (Normal); Urine WBC None Seen /HPF (<5)
[2023-09-22 18:50] LABS: Absolute Basophils 0.1 K/uL (0-0.5); Absolute Eosinophils 0.3 K/uL (0-0.5); Absolute Lymphocytes (CBC) 4.1 K/uL (0.7-4.9); Absolute Monocytes 1.2 K/uL (0.1-1.3); Absolute Neutrophil 7.1 K/uL (1.8-8.0); Basophils % 0.6 % (0-1.3); Eosinophils % 2.2 % (0-4.4); Hemoglobin 12.5 g/dL (12.0-15.0); Lymphocytes % 32.1 % (15.3-44.8); MCV 93.8 fL (80-100); MPV 8.9 fL (7.6-11.3); Monocytes % 9.2 % (3.3-12.3); Neutrophils % 55.9 % (41.7-73.7); Platelets 310 thou/uL (152-406); RBC Red Blood Cell Count 4.16 M/uL (3.86-4.86)
[2023-09-22 19:00] LABS: Albumin 3.8 g/dL (3.4-5.0); Albumin/Globulin Ratio 0.8 (1.1-1.8); Anion Gap 8.2 mEq/L (5.0-15.0); Bilirubin Total 0.2 mg/dL (0.2-1.0); Globulin 4.5 g/dL (2.3-3.5); Potassium 3.2 mEq/L (3.5-5.1); Protein, Total 8.3 g/dL (6.4-8.2)
[2023-09-22] MEDS ORDERED: ONDANSETRON 4 MG/2 ML VIAL ONE (19:51)
[2023-09-22] MEDS ORDERED: NA CHLORIDE 0.9% 1,000 ML ONE ×2 (19:52→20:45)
[2023-09-22] MEDS ORDERED: FAMOTIDINE 20 MG/2 ML VIAL IV ONE (19:52)
[2023-09-22] MEDS ORDERED: MORPHINE 4 MG/ML SYR ONE ×2 (19:52→20:44)
--- NOTE | 2023-09-22 21:44 | RAD REPORT ---
EXAM DESCRIPTION: CTAbdomen Pelvis W Contrast - 09/22/2023 9:18 pm CLINICAL HISTORY: ABD PAIN COMPARISON: 07/10/2023 TECHNIQUE: CT of the abdomen and pelvis was performed with IV contrast. All CT scans are performed using dose optimization technique as appropriate and may include automated exposure control or mA/KV adjustment according to patient size. FINDINGS: Lower chest: No acute abnormality. Liver: No acute abnormality or suspicious lesions. Mild intrahepatic biliary duct dilatation. Biliary: Cholecystectomy. Extrahepatic biliary duct dilatation. The common bile duct measures 10 mill imeters but does taper normally towards the ampulla. Stomach: No significant focal abnormality. The linear metallic density is again noted in the stomach. This may be postsurgical. Duodenum: No significant focal abnormality. Pancreas: Similar diffuse low-attenuation of the pancreatic parenchyma. Spleen: No significant abnormality. Adrenal: No suspicious lesions. Kidney/ureter: No hydronephrosis. No renal calculi. Retroperitoneum: No retroperitoneal adenopathy. Vascular: No aneurysm. Bowel: No significant focal abnormality. Normal appendix. Peritoneum: No ascites or free air. Bladder: Grossly unremarkable. Reproductive: No adnexal masses. Bones: No acute fracture. Other: n/a IMPRESSION: No acute intra-abdominal or pelvic finding. Normal appendix.
--- NOTE | 2023-09-22 21:54 | EDPHYS ---
Physician Documentation [facility] Name: Misa Tony Age: 47 yrs Sex: Female : 1975 Arrival Date: 09/22/2023 Time: 17:24 Bed 24 Private MD: Carlos Ballard HPI: 09/21 20:33 This 47 yrs old Female presents to ER via Ambulatory with complaints of kadeem Abdominal Pain. 20:33 The patient presents with abdominal pain in the upper abdomen, abdominal distention in kadeem the upper abdomen. Onset: The symptoms/episode began/occurred 3 day(s) ago. The patient presents to the emergency department with nausea, vomiting, diarrhea, abdominal pain, of the epigastric area, right upper quadrant and left upper quadrant, described as constant. Onset: The symptoms/episode began/occurred 3 day(s) ago. Possible causes: unknown. The symptoms are aggravated by nothing. The symptoms are alleviated by nothing. Associated signs and symptoms: Pertinent positives: abdominal pain, nausea, vomiting. The symptoms do not radiate. Modifying factors: The symptoms are alleviated by nothing, remaining still, the symptoms are aggravated by food, movement, pressure, touching the area. Historical: - Allergies: 18:24 No Known Allergies; nj1 - PMHx: 18:24 Bipolar disorder; blood clot in Axilla; Endometrosis; gastritis; Gastroparesis; GERD; nj1 Hypertension; Pancreatitis; - PSHx: 18:24 Cholecystectomy; hysterectomy; nj1 - Immunization history:: Client reports receiving the 2nd dose of the Covid vaccine. - Infectious Disease History:: Denies. - Social history:: Smoking status: Patient denies any tobacco usage or history of. - Family history:: not pertinent. ROS: 20:33 Constitutional: Negative for fever, chills, and weight loss, Eyes: Negative for injury, kadeem pain, redness, and discharge, ENT: Negative for injury, pain, and discharge, Neck: Negative for injury, pain, and swelling, Cardiovascular: Negative for chest pain, palpitations, and edema, Respiratory: Negative for shortness of breath, cough, wheezing, and pleuritic chest pain, Back: Negative for injury and pain, : Negative for injury, bleeding, discharge, and swelling, MS/Extremity: Negative for injury and deformity, Skin: Negative for injury, rash, and discoloration, Neuro: Negative for headache, weakness, numbness, tingling, and seizure, Psych: Negative for depression, anxiety, suicide ideation, homicidal ideation, and hallucinations, Allergy/Immunology: Negative for hives, rash, and allergies, Endocrine: Negative for neck swelling, polydipsia, polyuria, polyphagia, and marked weight changes, Hematologic/Lymphatic: Negative for swollen nodes, abnormal bleeding, and unusual bruising, 20:33 Abdomen/GI: Positive for abdominal pain, nausea and vomiting, diarrhea, abdominal cramps, abdominal distension, of the epigastric area, right upper quadrant and left upper quadrant, Exam: 20:33 Constitutional: This is a well developed, well nourished patient who is awake, alert, kadeem and in no acute distress. Head/Face: Normocephalic, atraumatic. Eyes: Pupils equal round and reactive to light, extra-ocular motions intact. Lids and lashes normal. Conjunctiva and sclera are non-icteric and not injected. Cornea within normal limits. Periorbital areas with no swelling, redness, or edema. ENT: Nares patent. No nasal discharge, no septal abnormalities noted. Tympanic membranes are normal and external auditory canals are clear. Oropharynx with no redness, swelling, or masses, exudates, or evidence of obstruction, uvula midline. Mucous membranes moist. Neck: Trachea midline, no thyromegaly or masses palpated, and no cervical lymphadenopathy. Supple, full range of motion without nuchal rigidity, or vertebral point tenderness. No Meningismus. Chest/axilla: Normal chest wall appearance and motion. Nontender with no deformity. No lesions are appreciated. Cardiovascular: Regular rate and rhythm with a normal S1 and S2. No gallops, murmurs, or rubs. Normal PMI, no JVD. No pulse deficits. Respiratory: Lungs have equal breath sounds bilaterally, clear to auscultation and percussion. No rales, rhonchi or wheezes noted. No increased work of breathing, no retractions or nasal flaring. Back: No spinal tenderness. No costovertebral tenderness. Full range of motion. Skin: Warm, dry with normal turgor. Normal color with no rashes, no lesions, and no evidence of cellulitis. MS/ Extremity: Pulses equal, no cyanosis. Neurovascular intact. Full, normal range of motion. Neuro: Awake and alert, GCS 15, oriented to person, place, time, and situation. Cranial nerves II-XII grossly intact. Motor strength 5/5 in all extremities. Sensory grossly intact. Cerebellar exam normal. Normal gait. Psych: Awake, alert, with orientation to person, place and time. Behavior, mood, and affect are within normal limits. 20:33 Abdomen/GI: Inspection: abdomen appears normal, Bowel sounds: active, Palpation: mild abdominal tenderness, moderate abdominal tenderness, in the epigastric area, right upper quadrant and left upper quadrant, Liver: no appreciated palpable abnormalities, Hernia: not appreciated, Vital Signs: 18:23 BP 177 / 92; Pulse 89; Resp 18; Temp 98.7(O); Pulse Ox 99% ; Weight 74.84 kg; Height 5 nj1 ft. 5 in. ; Pain 9/10; 22:58 BP 127 / 90; Pulse 87; Resp 18; Pulse Ox 99% ; vc1 18:23 Body Mass Index 27.46 (74.84 kg, 165.1 cm) [facility] 18:23 Pain Scale: Adult nj1 MDM: 17:31 Patient medically screened. [facility] 20:36 Differential diagnosis: pancreatitis, diverticulitis, viral gastroenteritis, kadeem gastroenteritis, appendicitis, bowel obstruction, diverticulitis, gastritis, non-specific abd pain, pancreatitis, Perf. Duodenal Ulcer, Perf. Gastric Ulcer. Data reviewed: vital signs, nurses notes, lab test result(s), radiologic studies, CT scan. Consideration of Admission/Observation Escalation of care including admission/observation considered. I considered the following discharge prescriptions or medication management in the emergency department Medications were administered in the Emergency Department. See MAR. Test considered but Not performed: Ultrasound NO ABD USG. Historians other than the Patient: PT WELL INFORMED. Care significantly affected by the following chronic conditions: Hypertension, Obesity, GERD, BIPOLAR, CLOT AXILLA,GASTROPARESIS. 09/21 17:31 Order name: CBC with Diff; Complete Time: 20:00 [facility] 09/21 17:31 Order name: CMP; Complete Time: 20:00 [facility] 09/21 17:31 Order name: Lipase; Complete Time: 20:00 [facility] 09/21 17:31 Order name: Urinalysis w/ reflexes; Complete Time: 20:00 [facility] 09/21 20:31 Order name: CT Abd/Pelvis - IV Contrast Only; Complete Time: 21:53 [facility] 09/21 17:31 Order name: IV Saline Lock; Complete Time: 19:33 [facility] 09/21 17:31 Order name: Labs collected and sent; Complete Time: 19:33 [facility] Administered Medications: 20:02 Drug: Ondansetron IVP 4 mg IVP once; over 2 minutes Route: IVP; Site: left antecubital; vc1 20:02 Drug: morphine IVP or IV 4 mg IVP once over 4 mins Route: IVP; Infused Over: 4 mins; vc1 Site: left antecubital; 20:03 Drug: NS 0.9% IV 1000 ml IV at 1 bolus Per protocol; 1000 mL bolus Route: IV; Rate: 1 vc1 bolus; Site: left antecubital; 20:03 Drug: Famotidine IVP 20 mg IVP once; dilute with 10 mL 0.9% NaCl; give over 2 minutes vc1 Route: IVP; Site: left antecubital; 20:50 Drug: NS 0.9% IV 1000 ml IV at 1 bolus Per protocol; 1000 mL bolus Route: IV; Rate: 1 vc1 bolus; Site: left antecubital; 20:50 Drug: morphine IVP or IV 4 mg IVP once over 4 mins Route: IVP; Infused Over: 4 mins; vc1 Site: left antecubital; 22:03 CANCELLED (Other Intervention Used): potassium [id number] meq IV at per protocol once; vc1 administer over 1-2 hours 22:32 Drug: Potassium Chloride PO 40 mEq PO once Route: PO; vc1 Disposition Summary: 09/22/23 21:53 Discharge Ordered Notes: Location: Home kb Problem: new kb Symptoms: have improved kb Condition: Stable kb Diagnosis - Epigastric abdominal tenderness kb - Vomiting kb - Gastroparesis kb - Hypokalemia kb - Elevated white blood cell count kb Followup: kadeem - With: Private Physician - When: 2 - 3 days - Reason: Recheck today's complaints, Continuance of care, Re-evaluation by your physician Followup: kadeem - With: Monica Mahoney MD - When: 2 - 3 days - Reason: Recheck today's complaints, Re-evaluation by your physician Discharge Instructions: - Discharge Summary Sheet kadeem - Abdominal Pain, Adult kadeem - Abdominal Pain, Adult, [id number] kadeem - Hypokalemia kadeem - Vomiting, Adult kadeem - Gastroparesis kadeem Forms: - Medication Reconciliation Form kb - Antibiotic Education kb - Prescription Opioid Use kb - Patient Portal Instructions kb - Leadership Thank You Letter kb Prescriptions: - ondansetron 4 mg Oral Tablet,disintegrating - take 1 tablet ORAL route every 6-8 hours; 20 tablet; Refills: 0, Product kadeem Selection Permitted - promethazine 25 mg Rectal suppository - insert 1 suppository RECTAL route every 6 hours as needed for nausea and kadeem vomiting, INTRACTABLE; 15 suppository; Refills: 0, Product Selection Permitted - Pepcid 20 mg Oral tablet - take 1 tablet ORAL route every 12 hours for 21 days; 42 tablet; Refills: 0, kadeem Product Selection Permitted - dicyclomine 20 mg Oral tablet - take 1 tablet ORAL route 4 times per day; 28 tablet; Refills: 0, Product kadeem Selection Permitted Signatures: Dispatcher [employer] EDAnette English, HORSE BREEDERJennaC ERICA-Carlos Blankenship MD MD cha Calcote, Vanessa RN RN vc1 Sangita Weinstein RN RN nj1 Corrections: (The following items were deleted from the chart) 18:25 18:24 Allergies: Morphine; nj1 nj1 22:03 21:03 Potassium Chloride IV 20 mEq IV at per protocol once; administer over 1-2 hours vc1 ordered. kadeem
--- NOTE | 2023-09-22 21:54 | ER ---
Nurse's Notes [facility] Name: Misa Tony Age: 47 yrs Sex: Female : 1975 Arrival Date: 09/22/2023 Time: 17:24 Bed 24 Private MD: Diagnosis: Epigastric abdominal tenderness;Vomiting;Gastroparesis;Hypokalemia;Elevated white blood cell count Presentation: 09/21 18:23 Chief complaint: Patient states: Abdominal pain for 3 days, getting worse. Nausea, nj1 vomiting and diarrhea also. Coronavirus screen: Vaccine status: Patient reports receiving the 2nd dose of the covid vaccine. Ebola Screen: Patient denies travel to an Ebola-affected area in the 21 days before illness onset. Initial Sepsis Screen: Does the patient meet any 2 criteria? No. Patient's initial sepsis screen is negative. Does the patient have a suspected source of infection? No. Patient's initial sepsis screen is negative. Risk Assessment: Do you want to hurt yourself or someone else? Patient reports no desire to harm self or others. Onset of symptoms was September 20, 2023. 18:23 Method Of Arrival: Ambulatory [facility] 18:23 Acuity: ELADIO 3 nj1 Triage Assessment: 18:25 General: Appears in no apparent distress. uncomfortable, Behavior is calm, cooperative, nj1 appropriate for age. Pain: Complains of pain in abdomen Pain currently is 9 out of 10 on a pain scale. Neuro: Level of Consciousness is awake, alert, obeys commands, Oriented to person, place, time, situation. Cardiovascular: Patient's skin is warm and dry. Respiratory: Airway is patent Respiratory effort is even, unlabored. GI: Reports upper abdominal pain, diarrhea, nausea, vomiting. Historical: - Allergies: 18:24 No Known Allergies; nj1 - PMHx: 18:24 Bipolar disorder; blood clot in Axilla; Endometrosis; gastritis; Gastroparesis; GERD; nj1 Hypertension; Pancreatitis; - PSHx: 18:24 Cholecystectomy; hysterectomy; nj1 - Immunization history:: Client reports receiving the 2nd dose of the Covid vaccine. - Infectious Disease History:: Denies. - Social history:: Smoking status: Patient denies any tobacco usage or history of. - Family history:: not pertinent. Screenin:54 [facility] ED Fall Risk Assessment (Adult) History of falling in the last 3 months, vc1 including since admission No falls in past 3 months (0 pts) Confusion or Disorientation No (0 pts) Intoxicated or Sedated No (0 pts) Impaired Gait No (0 pts) Mobility Assist Device Used No (0 pt) Altered Elimination No (0 pt) Score/Fall Risk Level 0 - 2 = Low Risk Oriented to surroundings, Maintained a safe environment, Educated pt \T\ family on fall prevention, incl call for assistance when getting out of bed. Abuse screen: Denies threats or abuse. Nutritional screening: No deficits noted. Tuberculosis screening: No symptoms or risk factors identified. Assessment: 21:00 General: Appears in no apparent distress. uncomfortable, well developed, Behavior is vc1 calm, cooperative, appropriate for age. Pain: Complains of pain in abdomen Pain does not radiate. Pain currently is 10 out of 10 on a pain scale. Quality of pain is described as crampy. Neuro: Level of Consciousness is awake, alert, obeys commands, Oriented to person, place, time, situation, Appropriate for age. Respiratory: Airway is patent Respiratory effort is even, unlabored, Respiratory pattern is regular, symmetrical, Breath sounds are clear bilaterally. GI: Bowel sounds present X 4 quads. Abd is soft. Vital Signs: 18:23 BP 177 / 92; Pulse 89; Resp 18; Temp 98.7(O); Pulse Ox 99% ; Weight 74.84 kg; Height 5 nj1 ft. 5 in. ; Pain 9/10; 22:58 BP 127 / 90; Pulse 87; Resp 18; Pulse Ox 99% ; vc1 18:23 Body Mass Index 27.46 (74.84 kg, 165.1 cm) nj1 18:23 Pain Scale: Adult nj1 ED Course: 17:28 Patient arrived in ED. im 17:31 Carlos Pradhan MD is Attending Physician. kadeem 18:24 Triage completed. nj1 18:25 Arm band placed on left wrist. nj1 18:38 Initial lab(s) drawn, by me, sent to lab. Urine collected: clean catch specimen, clear. mb9 Inserted saline lock: 20 gauge in left antecubital area, using aseptic technique. Blood collected. Flushed with 10 mL NS. 20:02 Eunice oRmero RN is Primary Nurse. vc1 21:20 CT Abd/Pelvis - IV Contrast Only In Process Unspecified. EDMS 21:24 Anette León F[facility]-C [facility]. kb 21:53 Monica Mahoney MD is Referral Physician. kb 22:55 No provider procedures requiring assistance completed. IV discontinued, intact, vc1 bleeding controlled, No redness/swelling at site. Pressure dressing applied. 22:56 Patient has correct armband on for positive identification. Provided Education on: MED vc1 USE. Pulse ox on. NIBP on. Administered Medications: 20:02 Drug: Ondansetron IVP 4 mg IVP once; over 2 minutes Route: IVP; Site: left antecubital; vc1 20:02 Drug: morphine IVP or IV 4 mg IVP once over 4 mins Route: IVP; Infused Over: 4 mins; vc1 Site: left antecubital; 20:03 Drug: NS 0.9% IV 1000 ml IV at 1 bolus Per protocol; 1000 mL bolus Route: IV; Rate: 1 vc1 bolus; Site: left antecubital; 20:03 Drug: Famotidine IVP 20 mg IVP once; dilute with 10 mL 0.9% NaCl; give over 2 minutes vc1 Route: IVP; Site: left antecubital; 20:50 Drug: NS 0.9% IV 1000 ml IV at 1 bolus Per protocol; 1000 mL bolus Route: IV; Rate: 1 vc1 bolus; Site: left antecubital; 20:50 Drug: morphine IVP or IV 4 mg IVP once over 4 mins Route: IVP; Infused Over: 4 mins; vc1 Site: left antecubital; 22:03 CANCELLED (Other Intervention Used): potassium [id number] meq IV at per protocol once; vc1 administer over 1-2 hours 22:32 Drug: Potassium Chloride PO 40 mEq PO once Route: PO; vc1 Medication: 22:55 VIS not applicable for this client. vc1 Outcome: 21:53 Discharge ordered by . kb 22:55 Discharged to home ambulatory, vc1 22:55 Condition: good 22:55 Discharge instructions given to patient, Instructed on discharge instructions, follow up and referral plans. Demonstrated understanding of instructions, follow-up care, medications, Prescriptions given X 4, 22:58 Patient left the ED. vc1 Signatures: Dispatcher [employer] EDMS Anette León FNP-C GASOLINE DRAGLINE OPERATOR-Ckb Carlos Pradhan MD MD cha Calcote, Vanessa RN RN vc1 Melba Rehman, RN RN mb9 Sangita Weinstein RN RN nj1 Felipa Colin Corrections: (The following items were deleted from the chart) 18:25 18:24 Allergies: Morphine; nj1 nj1
[2023-09-22] MEDS ORDERED: POTASSIUM CL SA 10 MEQ TAB PO ONE (22:26)
[2023-09-23 09:37] VITALS: TEMP 98.7; O2SAT 99
[2023-09-23 09:52] VITALS: BP 127/90
== END 2023-09-22 22:58 | disposition home or self-care (01) ==
LOC: ER 17:24
DX: R10.816 Epigastric abdominal tenderness (principal); R11.10 Vomiting, unspecified; E87.6 Hypokalemia; K31.84 Gastroparesis; D72.829 Elevated white blood cell count, unspecified
CPT/HCPCS: 85025; 81001; 36415; 83690; 80053; 74177; Q9967; J2405; J7030 ×2

== ENCOUNTER 2024-01-13 09:25 | Emergency (ER) | payer OTHER ==
[2024-01-13] MEDS ORDERED: METOCLOPRAMIDE 10 MG/2mL INJ ONE (09:57)
[2024-01-13] MEDS ORDERED: ONDANSETRON 4 MG/2 ML VIAL ONE (09:57)
[2024-01-13] MEDS ORDERED: MORPHINE 4 MG/ML SYR ONE ×2 (09:58→11:16)
[2024-01-13] MEDS ORDERED: FAMOTIDINE 20 MG/2 ML VIAL IV ONE (09:58)
[2024-01-13 10:04] LABS: Absolute Eosinophils 0.4 K/uL (0-0.5); Absolute Lymphocytes (CBC) 2.6 K/uL (0.7-4.9); Absolute Monocytes 0.9 K/uL (0.1-1.3); Absolute Neutrophil 6.2 K/uL (1.8-8.0); Basophils % 0.5 % (0-1.3); Eosinophils % 4.3 % (0-4.4); Hematocrit 35.2 % (36.0-45.0); Hemoglobin 11.5 g/dL (12.0-15.0); Lymphocytes % 25.7 % (15.3-44.8); MCH 30.4 pg (27.0-35.0); MCHC 32.7 g/dL (32.0-36.0); MPV 9.1 fL (7.6-11.3); Monocytes % 9.2 % (3.3-12.3); Neutrophils % 60.3 % (41.7-73.7); Platelets 367 thou/uL (152-406); RBC Red Blood Cell Count 3.78 M/uL (3.86-4.86)
[2024-01-13 10:26] LABS: Albumin 4.2 g/dL (3.4-5.0); Albumin/Globulin Ratio 1.1 (1.1-1.8); Anion Gap 6.9 mEq/L (5.0-15.0); Bilirubin Total 0.4 mg/dL (0.2-1.0); Globulin 3.7 g/dL (2.3-3.5); Potassium 3.9 mEq/L (3.5-5.1); Protein, Total 7.9 g/dL (6.4-8.2)
--- NOTE | 2024-01-13 11:23 | RAD REPORT ---
EXAMINATION: CT Abdomen Pelvis W Contrast CLINICAL INDICATION: Female, 48 years old. ABD PAIN TECHNIQUE: CT abdomen and pelvis was performed, after the administration of IV contrast, [facility]. Axial, sagittal and coronal reconstructions were obtained. One or more of the following dose reduction techniques were used: Automated exposure control, adjustment of the mA and k V according to patient size, and iterative reconstruction. Unless otherwise specified, incidental findings do not require dedicated imaging follow-up. COMPARISON: 09/22/2023 FINDINGS: LOWER CHEST: The visualized lung bases are clear. LIVER: Mild fatty liver is present. No focal lesion or biliary dilatation is seen. BILIARY SYSTEM: Status post cholecystectomy. SPLEEN: Normal size. No focal lesion. PANCREAS: No mass, ductal dilation, or tejal-pancreatic fluid. ADRENALS: Normal; no mass. KIDNEYS: Normal size and contour. No hydronephrosis. URINARY BLADDER: Suboptimally distended limiting evaluation. GASTROINTESTINAL TRACT: Stable linear metallic density in the gastric fundus near the greater curvatu re, may relate to a postprocedural clip, please correlate with prior history. No evidence of free air, significant intra-abdominal free fluid, bowel obstruction or abscess. APPENDIX: Normal appendix. LYMPH NODES: No lymphadenopathy. MUSCULOSKELETAL: No acute or suspicious osseous abnormality. ADDITIONAL FINDINGS: None. IMPRESSION: No acute or concerning abnormalities seen in the abdomen or pelvis. Incidental findings as above.
[2024-01-13] MEDS ORDERED: HYDROMORPHONE HCL 1 MG/ML INJ ONE (13:01)
--- NOTE | 2024-01-13 13:07 | ER ---
Nurse's Notes [facility] Name: Misa Tony Age: 48 yrs Sex: Female : 1975 Arrival Date: 01/13/2024 Time: 09:25 Bed 16 Private MD: Diagnosis: Gastroparesis;Abdominal pain, unspecified Presentation: 01/12 09:36 Chief complaint: Patient states: Upper abdominal pain with nausea and diarrhea for 3 ll1 days. Coronavirus screen: Client denies travel out of the [place] in the last 14 days. At this time, the client does not indicate any symptoms associated with coronavirus-19. Ebola Screen: Patient denies travel to an Ebola-affected area in the 21 days before illness onset. Initial Sepsis Screen: Does the patient meet any 2 criteria? No. Patient's initial sepsis screen is negative. Does the patient have a suspected source of infection? No. Patient's initial sepsis screen is negative. Risk Assessment: Do you want to hurt yourself or someone else? Patient reports no desire to harm self or others. Onset of symptoms was January 11, 2024. 09:36 Method Of Arrival: Ambulatory ll1 09:36 Acuity: ELADIO 3 ll1 Triage Assessment: 09:37 General: Appears uncomfortable, Behavior is calm, cooperative, appropriate for age. ll1 Pain: Complains of pain in upper abdomen. Neuro: No deficits noted. GI: Reports upper abdominal pain, diarrhea, nausea. Historical: - Allergies: 09:35 No Known Allergies; ll1 - PMHx: 09:29 Bipolar disorder; blood clot in Axilla; Endometrosis; gastritis; Gastroparesis; GERD; ll1 Hypertension; Pancreatitis; - PSHx: 09:29 Cholecystectomy; hysterectomy; ll1 - Immunization history:: Adult Immunizations up to date. - Infectious Disease History:: Denies. - Social history:: Smoking status: Patient denies any tobacco usage or history of. - Family history:: not pertinent. - Hospitalizations: : No recent hospitalization is reported. Screenin:30 [facility] ED Fall Risk Assessment (Adult) History of falling in the last 3 months, rs5 including since admission No falls in past 3 months (0 pts) Confusion or Disorientation No (0 pts) Intoxicated or Sedated No (0 pts) Impaired Gait No (0 pts) Mobility Assist Device Used No (0 pt) Altered Elimination No (0 pt) Score/Fall Risk Level 0 - 2 = Low Risk Oriented to surroundings, Maintained a safe environment. Abuse screen: Denies threats or abuse. Nutritional screening: No deficits noted. Tuberculosis screening: No symptoms or risk factors identified. Assessment: 09:30 General: Appears in no apparent distress. uncomfortable, Behavior is calm, cooperative. rs5 Pain: Complains of pain in abdomen Pain currently is 7 out of 10 on a pain scale. Quality of pain is described as aching, Is continuous. Neuro: Level of Consciousness is awake, alert, obeys commands, Oriented to person, place, time, situation. Cardiovascular: Patient's skin is warm and dry. Respiratory: Airway is patent Respiratory effort is even, unlabored, Respiratory pattern is regular, symmetrical. 09:30 GI: Abdomen is round non-distended, Bowel sounds present X 4 quads. Abd is soft and non rs5 tender X 4 quads. Reports nausea, vomiting. : No signs and/or symptoms were reported regarding the genitourinary system. EENT: No signs and/or symptoms were reported regarding the EENT system. Derm: Skin is intact, Skin is pink, warm \T\ dry. Musculoskeletal: Range of motion: intact in all extremities. 10:35 Reassessment: Patient and/or family updated on plan of care and expected duration. Pain rs5 level reassessed. Patient is alert, oriented x 3, equal unlabored respirations, skin warm/dry/pink. 11:47 Reassessment: Patient and/or family updated on plan of care and expected duration. Pain rs5 level reassessed. Patient is alert, oriented x 3, equal unlabored respirations, skin warm/dry/pink. 13:10 Reassessment: Patient and/or family updated on plan of care and expected duration. Pain rs5 level reassessed. Patient is alert, oriented x 3, equal unlabored respirations, skin warm/dry/pink. Vital Signs: 09:36 BP 156 / 110; Pulse 65; Resp 17; Temp 97.3; Pulse Ox 97% on R/A; Weight 81.65 kg; ll1 Height 5 ft. 5 in. ; Pain 9/10; 11:01 BP 137 / 77; Pulse 77; Resp 17; Pulse Ox 98% on R/A; rs5 13:01 BP 138 / 74; Pulse 80; Resp 16; Pulse Ox 99% on R/A; rs5 15:01 BP 145 / 80; Pulse 74; Resp 17; Pulse Ox 99% on R/A; rs5 09:36 Body Mass Index 29.95 (81.65 kg, 165.1 cm) ll1 09:36 Pain Scale: Adult ll1 ED Course: 09:28 Patient arrived in ED. mg5 09:29 Arm band placed on Patient placed in an exam room, on a stretcher. ll1 09:30 Patient has correct armband on for positive identification. Placed in gown. Bed in low rs5 position. Call light in reach. Side rails up X2. 09:30 No provider procedures requiring assistance completed. rs5 09:31 Ibrahima Sam MD is Attending Physician. rn 09:31 Too Wolff RN is Primary Nurse. rs5 09:37 Triage completed. ll1 09:40 Inserted saline lock: 22 gauge in left antecubital area, using aseptic technique. Blood rs5 collected. Flushed with 10 mL NS. 10:38 CT Abd/Pelvis - IV Contrast Only In Process Unspecified. EDMS 13:20 IV discontinued, intact, bleeding controlled, No redness/swelling at site. Pressure rs5 dressing applied. Administered Medications: 10:04 Drug: morphine IVP or IV 4 mg IVP once over 4 mins Route: IVP; Infused Over: 4 mins; rs5 Site: left antecubital; 10:05 Drug: Famotidine IVP 20 mg IVP once; dilute with 10 mL 0.9% NaCl; give over 2 minutes rs5 Route: IVP; Site: left antecubital; 10:05 Drug: Ondansetron IVP 4 mg IVP once; over 2 minutes Route: IVP; Site: left antecubital; rs5 10:25 Not Given (Patient Refused): [id number] mg IVP once; over 1 to 2 minutes rs5 11:10 Drug: morphine IVP or IV 4 mg IVP once over 4 mins Route: IVP; Infused Over: 4 mins; rs5 Site: left antecubital; 12:45 Drug: HYDROmorphone IM 1 mg IM once Route: IM; Site: left deltoid; rs5 Medication: 12:01 VIS not applicable for this client. rs5 Outcome: 13:06 Discharge ordered by . rn 13:20 Discharged to home ambulatory, rs5 13:20 Condition: stable rs5 13:20 Discharge instructions given to patient, family, Instructed on discharge instructions, follow up and referral plans. Demonstrated understanding of instructions, follow-up care, 13:25 Patient left the ED. rs5 Signatures: Dispatcher [employer] EDMS Ibrahima Sam MD MD rn Lewis, Lynsay, RN RN ll1 Too Wolff RN RN rs5 Katerin Jensen mg5 Corrections: (The following items were deleted from the chart) 09:36 09:29 Allergies: Morphine; ll1 ll1
--- NOTE | 2024-01-13 13:07 | EDPHYS ---
Physician Documentation [facility] Name: Misa Tony Age: 48 yrs Sex: Female : 1975 Arrival Date: 01/13/2024 Time: 09:25 Bed 16 Private MD: ED Physician Ibrahima Sam HPI: 01/12 09:37 This 48 yrs old Female presents to ER via Ambulatory with complaints of Abdominal Pain. rn 09:37 The patient presents with abdominal pain in the epigastric area. Onset: The rn symptoms/episode began/occurred 2 day(s) ago. The symptoms do not radiate. Associated signs and symptoms: Pertinent positives: nausea, Pertinent negatives: blood in stools, chest pain, constipation, diarrhea, dysuria, fever. The symptoms are described as achy, crampy. Modifying factors: The symptoms are alleviated by nothing, the symptoms are aggravated by touching the area. Severity of pain: At its worst the pain was moderate in the emergency department the pain is unchanged. The patient has experienced similar episodes in the past. Patient reports epigastric and left upper quadrant abdominal pain that began a few days ago. Associated with nausea. Patient feels like it is either gastroparesis or pancreatitis. No fever or chills. No blood in stool. No chest pain.. Historical: - Allergies: 09:35 No Known Allergies; ll1 - PMHx: 09:29 Bipolar disorder; blood clot in Axilla; Endometrosis; gastritis; Gastroparesis; GERD; ll1 Hypertension; Pancreatitis; - PSHx: 09:29 Cholecystectomy; hysterectomy; ll1 - Immunization history:: Adult Immunizations up to date. - Infectious Disease History:: Denies. - Social history:: Smoking status: Patient denies any tobacco usage or history of. - Family history:: not pertinent. - Hospitalizations: : No recent hospitalization is reported. ROS: 09:37 Constitutional: Negative for fever, chills, and weight loss, Cardiovascular: Negative rn for chest pain, palpitations, and edema, Respiratory: Negative for shortness of breath, cough, wheezing, and pleuritic chest pain, Abdomen/GI: Positive for abdominal pain with nausea Back: Negative for injury and pain, : Negative for injury, bleeding, discharge, and swelling, MS/Extremity: Negative for injury and deformity, Skin: Negative for injury, rash, and discoloration, Neuro: Negative for headache, weakness, numbness, tingling, and seizure, Exam: 09:37 Constitutional: This is a well developed, well nourished patient who is awake, alert, rn and in no acute distress. Cardiovascular: Regular rate and rhythm. No pulse deficits. Respiratory: No increased work of breathing, no retractions or nasal flaring. Abdomen/GI: Soft, epigastric and left upper quadrant tenderness with guarding. No rebound MS/ Extremity: Pulses equal, no cyanosis. Vital Signs: 09:36 BP 156 / 110; Pulse 65; Resp 17; Temp 97.3; Pulse Ox 97% on R/A; Weight 81.65 kg; ll1 Height 5 ft. 5 in. ; Pain 9/10; 11:01 BP 137 / 77; Pulse 77; Resp 17; Pulse Ox 98% on R/A; rs5 13:01 BP 138 / 74; Pulse 80; Resp 16; Pulse Ox 99% on R/A; rs5 15:01 BP 145 / 80; Pulse 74; Resp 17; Pulse Ox 99% on R/A; rs5 09:36 Body Mass Index 29.95 (81.65 kg, 165.1 cm) ll1 09:36 Pain Scale: Adult ll1 MDM: 09:31 Medical Screening Exam initiated rn 13:05 Differential diagnosis: bowel obstruction, gastritis, gastroesophageal reflux disease, rn non-specific abd pain, pancreatitis, Peptic Ulcer Disease, Perf. Duodenal Ulcer, Perf. Gastric Ulcer. Data reviewed: vital signs, nurses notes, lab test result(s), radiologic studies, CT scan, and as a result, I will discharge patient. Counseling: I had a detailed discussion with the patient and/or guardian regarding the historical points, exam findings, and any diagnostic results supporting the discharge/admit diagnosis, lab results, radiology results, the need for outpatient follow up, to return to the emergency department if symptoms worsen or persist or if there are any questions or concerns that arise at home. Special discussion: Based on the patient's Hx, exam, and Dx evaluation, there is no indication for emergent surgery or inpatient Tx. It is understood by the patient/guardian that if the Sx's persist or worsen they need to return immediately for re-evaluation. I discussed with the patient/guardian in detail that at this point there is no indication for admission to the hospital. It is understood, however, that if the symptoms persist or worsen the patient needs to return immediately for re-evaluation. ED course: No acute findings on CT abdomen pelvis or laboratory evaluation. Most likely her gastroparesis or gastritis. Patient feels better. Will discharge home with return precautions. Patient states has Zofran and Phenergan at home as well as Reglan.. 01/12 09:35 Order name: CBC with Diff; Complete Time: 10:47 rn 01/12 09:35 Order name: CMP; Complete Time: 10:47 rn 01/12 09:35 Order name: Lipase; Complete Time: 10:47 rn 01/12 09:35 Order name: CT Abd/Pelvis - IV Contrast Only; Complete Time: 12:07 rn 01/12 09:35 Order name: IV Saline Lock; Complete Time: 10:05 rn 01/12 09:35 Order name: Labs collected and sent; Complete Time: 10:05 rn Administered Medications: 10:04 Drug: morphine IVP or IV 4 mg IVP once over 4 mins Route: IVP; Infused Over: 4 mins; rs5 Site: left antecubital; 10:05 Drug: Famotidine IVP 20 mg IVP once; dilute with 10 mL 0.9% NaCl; give over 2 minutes rs5 Route: IVP; Site: left antecubital; 10:05 Drug: Ondansetron IVP 4 mg IVP once; over 2 minutes Route: IVP; Site: left antecubital; rs5 10:25 Not Given (Patient Refused): mg IVP once; over 1 to 2 minutes rs5 11:10 Drug: morphine IVP or IV 4 mg IVP once over 4 mins Route: IVP; Infused Over: 4 mins; rs5 Site: left antecubital; 12:45 Drug: HYDROmorphone IM 1 mg IM once Route: IM; Site: left deltoid; rs5 Disposition Summary: 01/13/24 13:06 Discharge Ordered Notes: Location: Home rn Problem: an acute exacerbation rn Symptoms: have improved rn Condition: Stable rn Diagnosis - Gastroparesis rn - Abdominal pain, unspecified rn Followup: rn - With: Private Physician - When: As needed - Reason: Recheck today's complaints, Re-evaluation by your physician Discharge Instructions: - Discharge Summary Sheet rn - Abdominal Pain, Adult rn - Gastroparesis rn Forms: - Medication Reconciliation Form rn - Antibiotic international account representative - Prescription Opioid Use rn - Patient Portal Instructions rn - Leadership Thank You Letter rn Signatures: Dispatcher [employer] Ibrahima Blake MD MD rn Lewis, Lynsay RN RN ll1 Too Wolff RN RN rs5 Corrections: (The following items were deleted from the chart) 09: 09:29 Allergies: Morphine; ll1 ll1 09:36 09:36 Abdomen Pelvis W Con+CT.[id number].BRZ ordered. EDMS EDMS
[2024-01-13 15:08] VITALS: BP 156/110; TEMP 97.3; O2SAT 97
== END 2024-01-13 13:25 | disposition home or self-care (01) ==
LOC: ER 09:25
DX: K31.84 Gastroparesis (principal); I10 Essential (primary) hypertension
CPT/HCPCS: 85025; 36415; 83690; 80053; 74177; 96375; 96372; 96374; 99284; Q9967; J2765; J1171; J2405

== ENCOUNTER 2024-04-04 13:43 | Emergency (ER) | payer OTHER ==
[2024-04-04 14:34] LABS: Sqamous Epithelial <5 /HPF (None Seen); Urine Bacteria <20 /HPF (<20); Urine Bilirubin NEGATIVE (Negative); Urine Blood Trace (Negative); Urine Clarity Turbid (Clear); Urine Color Light-Yellow (Yellow); Urine Culture Reflex Order NOT NEEDED; Urine Glucose NEGATIVE (Negative); Urine Ketones 1+ (Negative); Urine Microscopic Reflex YN ORDER UMIC; Urine Mucus Slight /HPF (None Seen); Urine Nitrite NEGATIVE (Negative); Urine Protein TRACE (Negative); Urine Urobilinogen Normal (Normal); Urine WBC <5 /HPF (<5); Urine pH 6.5 (5.0-7.0)
[2024-04-04 14:36] LABS: Urine Yeast (Budding) Trace /HPF (None Seen)
[2024-04-04] MEDS ORDERED: ONDANSETRON 4 MG/2 ML VIAL ONE (15:54)
[2024-04-04] MEDS ORDERED: NA CHLORIDE 0.9% 1,000 ML ONE (15:54)
[2024-04-04] MEDS ORDERED: DICYCLOMINE HCL 20 MG/2 ML AMP IM ONE (16:23)
[2024-04-04 16:29] LABS: Albumin 4.2 g/dL (3.4-5.0); Albumin/Globulin Ratio 0.9 (1.1-1.8); Anion Gap 7.8 mEq/L (5.0-15.0); Bilirubin Total 0.4 mg/dL (0.2-1.0); Globulin 4.9 g/dL (2.3-3.5); Potassium 3.8 mEq/L (3.5-5.1); Protein, Total 9.1 g/dL (6.4-8.2)
[2024-04-04 17:00] LABS: Absolute Lymphocytes (CBC) 1.5 K/uL (0.7-4.9); Absolute Monocytes 0.4 K/uL (0.1-1.3); Absolute Neutrophil 7.3 K/uL (1.8-8.0); Basophils % 0.2 % (0-1.3); Eosinophils % 0.2 % (0-4.4); Hematocrit 35.6 % (36.0-45.0); Lymphocytes % 16.3 % (15.3-44.8); MCH 29.9 pg (27.0-35.0); MCHC 33.6 g/dL (32.0-36.0); MCV 89.2 fL (80-100); MPV 9.3 fL (7.6-11.3); Monocytes % 4.2 % (3.3-12.3); Neutrophils % 79.1 % (41.7-73.7); Platelets 270 thou/uL (152-406); RBC Red Blood Cell Count 3.99 M/uL (3.86-4.86); Red Cell Distribution Width 13.1 % (12.1-15.2)
[2024-04-04] MEDS ORDERED: MORPHINE 4 MG/ML SYR ONE (17:20)
--- NOTE | 2024-04-04 17:49 | RAD REPORT ---
EXAMINATION: CT ABDOMEN AND PELVIS WITH CONTRAST CLINICAL INDICATION: Abdominal pain TECHNIQUE: CT abdomen and pelvis was performed, after the administration of 100 cc Isovue-300.. Sagit rebecca and coronal reconstructions were obtained. One or more of the following dose reduction techniques were used: Automated exposure control, adjustment of the mA and kV according to patient si ze, and iterative reconstruction. Unless otherwise specified, incidental findings do not require dedicated imaging follow-up. [id number]. Oral contrast was not given which limits evaluation of bowel and appendix. COMPARISON: .2023 FINDINGS: Fatty liver. Liver is mildly enlarged. Spleen, pancreas, adrenals and kidneys unremarkable. Normal appendix. No adnexal mass. Hysterectomy. Cholecystectomy No evidence of diverticulitis. There is small umbilical hernia : IMPRESSION: Mild hepatomegaly with fatty infiltration
--- NOTE | 2024-04-04 17:57 | ER ---
Nurse's Notes [facility] Name: Misa Tony Age: 48 yrs Sex: Female : 1975 Arrival Date: 04/04/2024 Time: 13:43 Bed 23 Private MD: Diagnosis: Abdominal tenderness Presentation: 04/04 13:58 Chief complaint: Patient states: N/V/D for 4 days, abdominal pain started in epigastric ko1 area now in bilateral upper quads. Coronavirus screen: diarrhea, nausea, vomiting. Ebola Screen: No symptoms or risks identified at this time. Initial Sepsis Screen: Does the patient meet any 2 criteria? No. Patient's initial sepsis screen is negative. Does the patient have a suspected source of infection? No. Patient's initial sepsis screen is negative. Risk Assessment: Do you want to hurt yourself or someone else? Patient reports no desire to harm self or others. Onset of symptoms is unknown. 13:58 Method Of Arrival: Ambulatory ko1 13:58 Acuity: ELADIO 3 ko1 Triage Assessment: 14:01 General: Appears ill, Behavior is calm, cooperative, appropriate for age. Pain: ko1 Complains of pain in right upper quadrant and left upper quadrant. GI: Reports upper abdominal pain, diarrhea, nausea, vomiting. 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 - Infectious Disease History:: Denies. - Social history:: Smoking status: Patient denies any tobacco usage or history of. Screenin:16 [facility] ED Fall Risk Assessment (Adult) History of falling in the last 3 months, kc6 including since admission No falls in past 3 months (0 pts) Confusion or Disorientation No (0 pts) Intoxicated or Sedated No (0 pts) Impaired Gait No (0 pts) Mobility Assist Device Used No (0 pt) Altered Elimination No (0 pt) Score/Fall Risk Level 0 - 2 = Low Risk Oriented to surroundings, Maintained a safe environment, Educated pt \T\ family on fall prevention, incl call for assistance when getting out of bed. Abuse screen: Denies threats or abuse. Denies injuries from another. Nutritional screening: No deficits noted. Tuberculosis screening: No symptoms or risk factors identified. Assessment: 16:51 General: Appears in no apparent distress. uncomfortable, well groomed, well developed, kc6 Behavior is calm, cooperative, appropriate for age. Pain: Complains of pain in abdomen and left upper quadrant and right upper quadrant Quality of pain is described as sharp, stabbing. Neuro: Level of Consciousness is awake, alert, obeys commands, Oriented to person, place, time, situation, Appropriate for age. Cardiovascular: Capillary refill < 3 seconds. Respiratory: Airway is patent Trachea midline Respiratory effort is even, unlabored, Respiratory pattern is regular, symmetrical. GI: Abdomen is round Bowel sounds present X 4 quads. Abd is soft X 4 quads Abdomen is tender to palpation in right upper quadrant and left upper quadrant Reports upper abdominal pain, diarrhea, intolerance of fluids, intolerance of food, nausea, vomiting, Patient currently denies constipation. : No signs and/or symptoms were reported regarding the genitourinary system. EENT: No signs and/or symptoms were reported regarding the EENT system. Derm: No signs and/or symptoms reported regarding the dermatologic system. Skin is intact, is healthy with good turgor, Skin is pink, warm \T\ dry. Musculoskeletal: No signs and/or symptoms reported regarding the musculoskeletal system. Circulation, motion, and sensation intact. Range of motion: intact in all extremities. 17:51 Reassessment: Patient appears in no apparent distress at this time. No changes from kc6 previously documented assessment. Patient and/or family updated on plan of care and expected duration. Pain level reassessed. Patient is alert, oriented x 3, equal unlabored respirations, skin warm/dry/pink. 18:22 Reassessment: Patient appears in no apparent distress at this time. No changes from kc6 previously documented assessment. Patient and/or family updated on plan of care and expected duration. Pain level reassessed. Patient is alert, oriented x 3, equal unlabored respirations, skin warm/dry/pink. Vital Signs: 13:58 BP 136 / 104; Pulse 76; Resp 18; Temp 97; Pulse Ox 100% ; ko1 16:16 BP 158 / 95; Pulse 82; Resp 16 S; Pulse Ox 100% on R/A; kc6 18:22 BP 150 / 90; Pulse 85; Resp 18 S; Pulse Ox 100% on R/A; kc6 ED Course: 13:46 Patient arrived in ED. mr 13:48 Angie Davis MD is Attending Physician. gb1 13:58 Crystal Lee, RN is Primary Nurse. ko1 14:01 Triage completed. ko1 14:01 Arm band placed on right wrist. Patient placed in waiting room, Patient notified of ko1 wait time. 14:22 Test, Urine Sent. ko1 14:22 Urinalysis w/ reflexes Sent. ko1 14:22 Urine collected: clean catch specimen, clear. ko1 15:51 Daniela Talavera, RN is Primary Nurse. kc6 16:16 Patient requests pain medication. kc6 16:16 Patient has correct armband on for positive identification. Bed in low position. Call kc6 light in reach. Side rails up X 1. Adult w/ patient. Pulse ox on. NIBP on. Door closed. Noise minimized. Lights dimmed. Pillow given. 16:16 Initial lab(s) drawn, by me, sent to lab. Missed attempt(s): 22 gauge in right kc6 antecubital area. Inserted saline lock: 22 gauge in left upper arm, using aseptic technique. Blood collected. Flushed with 10 mL NS. Patient maintains SpO2 saturation greater than 95% on room air. 16:51 Lab(s) recollected, by me, sent to lab. kc6 17:36 CT Abd/Pelvis - IV Contrast Only In Process Unspecified. EDMS 18:22 No provider procedures requiring assistance completed. IV discontinued, intact, kc6 bleeding controlled, No redness/swelling at site. Pressure dressing applied. Administered Medications: 16:15 Drug: Ondansetron IVP 4 mg IVP once; over 2 minutes Route: IVP; Site: left upper arm; kc6 16:48 Follow up: Response: No adverse reaction; Nausea is decreased kc6 16:15 Drug: NS 0.9% IV 1000 ml IV at 1 bolus Per protocol; to be given as a bolus over 60 kc6 minutes Route: IV; Rate: 1 bolus; Site: left upper arm; 18:21 Follow up: Response: No adverse reaction; IV Status: Completed infusion; IV Intake: kc6 500ml 16:29 Drug: Dicyclomine IM 20 mg IM once Route: IM; Site: right deltoid; kc6 17:18 Follow up: Response: No adverse reaction; Pain is unchanged, physician notified kc6 17:25 Drug: morphine IVP or IV 4 mg IVP once over 4 mins Route: IVP; Infused Over: 4 mins; kc6 Site: left upper arm; 18:21 Follow up: Response: No adverse reaction; Pain is decreased; RASS: Alert and Calm (0) kc6 Medication: 18:23 VIS not applicable for this client. kc6 Intake: 18:21 IV: 500ml; Total: 500ml. kc6 Outcome: 17:56 Discharge ordered by MD. [email or web address] 18:23 Discharged to home ambulatory, with significant other, kc6 18:23 Condition: improved 18:23 Discharge instructions given to patient, significant other, Instructed on discharge instructions, follow up and referral plans. no drinking with medication, no driving heavy equipment, medication usage, Demonstrated understanding of instructions, follow-up care, medications, Prescriptions given X 1, 18:23 Patient left the ED. kc6 Signatures: Dispatcher [employer] EDMS Melba Rashid, Ty Crawford mr Daniela Talavera RN RN kc6 Crystal Lee RN RN ko1 Angie Davis MD MD gb1
--- NOTE | 2024-04-04 17:57 | EDPHYS ---
Physician Documentation [facility] Name: Misa Tony Age: 48 yrs Sex: Female : 1975 Arrival Date: 04/04/2024 Time: 13:43 Bed 23 Private MD: ED Physician Angie Davis HPI: 04/04 17:54 This 48 yrs old Female presents to ER via Ambulatory with complaints of gb1 Abdominal Pain, Nausea/Vomiting/Diarrhea. 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 - Infectious Disease History:: Denies. - Social history:: Smoking status: Patient denies any tobacco usage or history of. Exam: 17:54 Constitutional: This is a well developed, well nourished patient who is awake, alert, gb1 and in no acute distress. Head/Face: Normocephalic, atraumatic. Eyes: Pupils equal round and reactive to light, extra-ocular motions intact. Lids and lashes normal. Conjunctiva and sclera are non-icteric and not injected. Cornea within normal limits. Periorbital areas with no swelling, redness, or edema. ENT: Nares patent. No nasal discharge, no septal abnormalities noted. Tympanic membranes are normal and external auditory canals are clear. Oropharynx with no redness, swelling, or masses, exudates, or evidence of obstruction, uvula midline. Mucous membranes moist. Neck: Trachea midline, no thyromegaly or masses palpated, and no cervical lymphadenopathy. Supple, full range of motion without nuchal rigidity, or vertebral point tenderness. No Meningismus. Chest/axilla: Normal chest wall appearance and motion. Nontender with no deformity. No lesions are appreciated. Cardiovascular: Regular rate and rhythm with a normal S1 and S2. No gallops, murmurs, or rubs. Normal PMI, no JVD. No pulse deficits. Respiratory: Lungs have equal breath sounds bilaterally, clear to auscultation and percussion. No rales, rhonchi or wheezes noted. No increased work of breathing, no retractions or nasal flaring. Abdomen/GI: Soft, generally tender, with normal bowel sounds. No distension or tympany. No guarding or rebound. Back: No spinal tenderness. No costovertebral tenderness. Full range of motion. Skin: Warm, dry with normal turgor. Normal color with no rashes, no lesions, and no evidence of cellulitis. MS/ Extremity: Pulses equal, no cyanosis. Neurovascular intact. Full, normal range of motion. Neuro: Awake and alert, GCS 15, oriented to person, place, time, and situation. Cranial nerves II-XII grossly intact. Motor strength 5/5 in all extremities. Sensory grossly intact. Cerebellar exam normal. Normal gait. Vital Signs: 13:58 BP 136 / 104; Pulse 76; Resp 18; Temp 97; Pulse Ox 100% ; ko1 16:16 BP 158 / 95; Pulse 82; Resp 16 S; Pulse Ox 100% on R/A; kc6 18:22 BP 150 / 90; Pulse 85; Resp 18 S; Pulse Ox 100% on R/A; kc6 MDM: 14:23 Medical Screening Exam initiated gb1 17:54 ED course: 48-year-old female presents with generalized abdominal pain with gb1 nausea vomiting and diarrhea. Patient is history of gastroparesis, bipolar disorder, GERD, hypertension, gastritis. Patient lipase is normal and she does not have a gallbladder. She is p.o. tolerant I will discharge her home with expulsive return precautions. I doubt acute cholecystitis, appendicitis or SBO. CT scan is negative for any acute intra-abdominal findings.. 04/04 13:49 Order name: CBC with Diff; Complete Time: 17:11 gb1 04/04 13:49 Order name: CMP; Complete Time: 17:11 gb1 04/04 13:49 Order name: Lipase; Complete Time: 17: gb1 04/04 13:49 Order name: Test, Urine; Complete Time: 16:21 gb04/04 13:49 Order name: Urinalysis w/ reflexes; Complete Time: 16:21 04/04 17:12 Order name: CT Abd/Pelvis - IV Contrast Only; Complete Time: 17:53 04/04 13:49 Order name: IV Saline Lock; Complete Time: 16:15 04/04 13:49 Order name: Labs collected and sent; Complete Time: 16:15 04/04 16:36 Order name: Labs - recollect needed: recollect lavender top; Complete Time: 16:51 bd Administered Medications: 16:15 Drug: Ondansetron IVP 4 mg IVP once; over 2 minutes Route: IVP; Site: left upper arm; [facility] 16:48 Follow up: Response: No adverse reaction; Nausea is decreased [facility] 16:15 Drug: NS 0.9% IV 1000 ml IV at 1 bolus Per protocol; to be given as a bolus over 60 kc6 minutes Route: IV; Rate: 1 bolus; Site: left upper arm; 18:21 Follow up: Response: No adverse reaction; IV Status: Completed infusion; IV Intake: kc6 500ml 16:29 Drug: Dicyclomine IM 20 mg IM once Route: IM; Site: right deltoid; kc6 17:18 Follow up: Response: No adverse reaction; Pain is unchanged, physician notified 6 17:25 Drug: morphine IVP or IV 4 mg IVP once over 4 mins Route: IVP; Infused Over: 4 mins; kc6 Site: left upper arm; 18:21 Follow up: Response: No adverse reaction; Pain is decreased; RASS: Alert and Calm (0) kc6 Disposition Summary: 04/04/24 17:56 Discharge Ordered Notes: Location: Home gb1 Condition: Stable gb1 Diagnosis - Abdominal tenderness gb1 Followup: gb1 - With: Private Physician - When: - Reason: Re-evaluation by your physician Discharge Instructions: - Discharge Summary Sheet gb1 - Abdominal Pain, Adult, [id number] gb1 Forms: - Medication Reconciliation Form gb1 - Antibiotic Education gb1 - Prescription Opioid Use gb1 - Patient Portal Instructions gb1 - Leadership Thank You Letter gb1 Prescriptions: - dicyclomine 10 mg Oral capsule - take 1 capsule ORAL route 3 times per day; 20 capsule; Refills: 0, Product gb1 Selection Permitted Signatures: Dispatcher [employer] Salome Kimball Kaitlyn, RN RN kc6 Crystal Lee RN RN ko1 Angie Davis MD MD gb1
[2024-04-04 18:44] VITALS: TEMP 97; O2SAT 100
[2024-04-04 18:47] VITALS: BP 150/90
== END 2024-04-04 18:23 | disposition home or self-care (01) ==
LOC: ER 13:43
DX: R10.817 Generalized abdominal tenderness (principal); R11.2 Nausea with vomiting, unspecified; I10 Essential (primary) hypertension; F31.9 Bipolar disorder, unspecified
CPT/HCPCS: 96361; 85025; 81001; 36415; 81025; 83690; 80053; 74177; 96375; 96372; 96374; 99284; Q9967; J0500; J2405; J7030

== ENCOUNTER 2024-10-01 13:15 | Emergency (ER) | payer OTHER ==
[2024-10-01] MEDS ORDERED: ONDANSETRON 4 MG/2 ML VIAL ONE (14:51)
[2024-10-01] MEDS ORDERED: MAGNES/ALUMIN/SIMET 30ML UCUP ONE (14:52)
[2024-10-01] MEDS ORDERED: NA CHLORIDE 0.9% 1,000 ML ONE (14:52)
[2024-10-01] MEDS ORDERED: FAMOTIDINE 20 MG/2 ML VIAL IV ONE (14:52)
[2024-10-01] MEDS ORDERED: LIDOCAINE VISCOUS 2% 10ML ORAL SOLN ONE (14:53)
[2024-10-01 14:54] LABS: Absolute Lymphocytes (CBC) 3.3 K/uL (0.7-4.9); Hematocrit 36.8 % (36.0-45.0); Hemoglobin 12.4 g/dL (12.0-15.0); MCH 29.8 pg (27.0-35.0); MCHC 33.6 g/dL (32.0-36.0); MCV 88.8 fL (80-100); MPV 8.9 fL (7.6-11.3); Nucleated RBC Absolute Count 0.0 (0-0); Nucleated Red Blood Cells % 0.1 % (0-0); RBC Red Blood Cell Count 4.15 M/uL (3.86-4.86); White Blood Count 9.30 thou/uL (4.3-10.9)
[2024-10-01 15:30] LABS: ALT/SGPT 46.0 U/L (13-56); AST/SGOT 36.0 U/L (15-37); Albumin 3.8 g/dL (3.4-5.0); Albumin/Globulin Ratio 1.0 (1.1-1.8); Alkaline Phosphatase 105.0 U/L (45-117); Anion Gap 6.9 mEq/L (5.0-15.0); BUN Blood Urea Nitrogen 8.0 mg/dL (7-18); Globulin 4.0 g/dL (2.3-3.5); Glucose Level 91.0 mg/dL (74-106); Lipase 86.0 U/L (13-75); Potassium 3.9 mEq/L (3.5-5.1)
--- NOTE | 2024-10-01 16:44 | ER ---
Nurse's Notes [facility] Name: Misa Tony Age: 49 yrs Sex: Female : 1975 Arrival Date: 10/01/2024 Time: 13:15 Bed 7 Private MD: Diagnosis: Gastroparesis, chronic abdominal pain Presentation: 10/01 13:51 Chief complaint: Patient states: C/O abdominal pain with V/D and chest pain since this ar8 past thursday. Coronavirus screen: At this time, the client does not indicate any symptoms associated with coronavirus-19. Ebola Screen: No symptoms or risks identified at this time. Initial Sepsis Screen: Does the patient meet any 2 criteria? No. Patient's initial sepsis screen is negative. Does the patient have a suspected source of infection? No. Patient's initial sepsis screen is negative. Risk Assessment: Do you want to hurt yourself or someone else? Patient reports no desire to harm self or others. Onset of symptoms was September 26, 2024. 13:51 Method Of Arrival: Ambulatory ar8 13:51 Acuity: ELADIO 3 ar8 Triage Assessment: 13:53 General: Appears uncomfortable, Behavior is calm, cooperative. Pain: Complains of pain ar8 in chest and abdomen Pain currently is 9 out of 10 on a pain scale. GI: Reports diarrhea, vomiting. Historical: - Allergies: 13:53 No Known Allergies; ar8 - PMHx: 13:53 Bipolar disorder; Pancreatitis; gastritis; Gastroparesis; GERD; Endometrosis; blood ar8 clot in Axilla; Hypertension; - PSHx: 13:53 Cholecystectomy; hysterectomy; ar8 - Immunization history:: Adult Immunizations up to date. - Infectious Disease History:: Denies. - Social history:: Smoking status: Patient denies any tobacco usage or history of. Screenin:07 [facility] ED Fall Risk Assessment (Adult) History of falling in the last 3 months, dd2 including since admission No falls in past 3 months (0 pts) Confusion or Disorientation No (0 pts) Intoxicated or Sedated No (0 pts) Impaired Gait No (0 pts) Mobility Assist Device Used No (0 pt) Altered Elimination No (0 pt) Score/Fall Risk Level 0 - 2 = Low Risk Oriented to surroundings, Maintained a safe environment, Educated pt \T\ family on fall prevention, incl call for assistance when getting out of bed, Assessed \T\ reinforced patient's understanding of fall precautions, Hourly rounding (assess needs \T\ fall precautionary measures) done. Abuse screen: Denies threats or abuse. Denies injuries from another. Nutritional screening: No deficits noted. Tuberculosis screening: No symptoms or risk factors identified. Assessment: 14:15 General: Appears in no apparent distress. uncomfortable, well groomed, well developed, hb Behavior is calm, cooperative, appropriate for age. Pain: Complains of pain in abdomen Pain currently is 9 out of 10 on a pain scale. Neuro: Level of Consciousness is awake, alert, obeys commands, Oriented to person, place, time, situation. Cardiovascular: Reports chest pain, nausea, shortness of breath, vomiting, Patient's skin is warm and dry. Respiratory: Airway is patent Respiratory effort is even, unlabored, Respiratory pattern is regular, symmetrical. GI: Abdomen is non-distended, Reports lower abdominal pain, upper abdominal pain, nausea, vomiting. : No signs and/or symptoms were reported regarding the genitourinary system. EENT: No signs and/or symptoms were reported regarding the EENT system. Derm: No signs and/or symptoms reported regarding the dermatologic system. Musculoskeletal: No signs and/or symptoms reported regarding the musculoskeletal system. Vital Signs: 13:51 Pulse 72; Resp 20; Temp 97; Pulse Ox 100% ; Weight 81.65 kg; Height 5 ft. 5 in. ; Pain ar8 9/10; 13:54 BP 135 / 89; ar8 15:14 BP 139 / 90; Pulse 71; Resp 18; Pulse Ox 100% on R/A; hb 16:30 BP 146 / 89; Pulse 70; Resp 16; Pulse Ox 100% on R/A; dd2 17:00 BP 153 / 82; Pulse 73; Resp 16; Pulse Ox 100% on R/A; dd2 13:51 Body Mass Index 29.95 (81.65 kg, 165.1 cm) ar8 13:51 Pain Scale: Adult ar8 ED Course: 13:16 Patient arrived in ED. ts1 13:24 Jose Dhaliwal MD is Attending Physician. sp3 13:52 Triage completed. ar8 13:53 Arm band placed on right wrist. ar8 14:42 CBC with Diff Sent. hb 14:42 CMP Sent. hb 14:42 Lipase Sent. hb 14:42 Inserted saline lock: 20 gauge in left antecubital area, using aseptic technique. Blood hb collected. Flushed with 10 mL NS. 14:43 Initial lab(s) drawn, by me, sent to lab. hb 17:07 Patient has correct armband on for positive identification. Bed in low position. Call dd2 light in reach. Side rails up X 1. Client placed on continuous cardiac and pulse oximetry monitoring. NIBP monitoring applied. Door closed. Noise minimized. Warm blanket given. Pillow given. Verbal reassurance given. 17:07 No provider procedures requiring assistance completed. dd2 17:10 IV discontinued, intact, bleeding controlled, No redness/swelling at site. Pressure ss dressing applied. Administered Medications: 15:13 Drug: Famotidine IVP 20 mg IVP once; dilute with 10 mL 0.9% NaCl; give over 2 minutes hb Route: IVP; Site: left antecubital; 15:13 Drug: Ondansetron IVP 4 mg IVP once; over 2 minutes Route: IVP; Site: left antecubital; hb 15:13 Drug: NS 0.9% IV 1000 ml IV at 1 bolus Per protocol; to be given as a bolus over 60 hb minutes Route: IV; Rate: 1 bolus; Site: left antecubital; 15:13 Drug: GI Cocktail without - (Maalox PO 30 ml, Lidocaine Mucous Membrane 2 % 15 hb ml) PO once Route: PO; Medication: 17:09 VIS not applicable for this client. dd2 Outcome: 16:43 Discharge ordered by MD. mcallister 17:10 Discharged to home ambulatory, 17:10 Condition: good 17:10 Discharge instructions given to patient, family, Instructed on discharge instructions, follow up and referral plans. medication usage, Demonstrated understanding of instructions, follow-up care, medications, Prescriptions given X 2, 17:11 Patient left the ED. Signatures: Kimberlee Isaacs RN RN Kathy Oconnell RN RN Jose Dhaliwal MD MD sp3 Trish Najera, JEANNETTE PAS ts1 SIMRAN AIKEN RN RN dd2 Evan Quigley RN RN ar8
--- NOTE | 2024-10-01 16:44 | EDPHYS ---
Physician Documentation [facility] Name: Misa Tony Age: 49 yrs Sex: Female : 1975 Arrival Date: 10/01/2024 Time: 13:15 Bed 7 Private MD: ED Physician Jose Dhaliwal HPI: 10/01 14:40 This 49 yrs old Female presents to ER via Ambulatory with complaints of sp3 Nausea/Vomiting/Diarrhea. 14:40 45-year-old female with multiple medical problems including bipolar disease, gastritis, sp3 prior pancreatitis, prior kidney stones, chronic abdominal pain presents again for abdominal pain and cramping. Symptoms are typical of her prior presentations. No new medical or surgical history is noted. ROS otherwise negative.. Historical: - Allergies: 13:53 No Known Allergies; ar8 - PMHx: 13:53 Bipolar disorder; Pancreatitis; gastritis; Gastroparesis; GERD; Endometrosis; blood ar8 clot in Axilla; Hypertension; - PSHx: 13:53 Cholecystectomy; hysterectomy; ar8 - Immunization history:: Adult Immunizations up to date. - Infectious Disease History:: Denies. - Social history:: Smoking status: Patient denies any tobacco usage or history of. ROS: 14:44 Constitutional: Negative for fever, chills, and weight loss, Eyes: Negative for injury, sp3 pain, redness, and discharge, Neck: Negative for injury, pain, and swelling, Cardiovascular: Negative for chest pain, palpitations, and edema, Respiratory: Negative for shortness of breath, cough, wheezing, and pleuritic chest pain, Back: Negative for injury and pain, : Negative for injury, bleeding, discharge, and swelling, MS/Extremity: Negative for injury and deformity, Skin: Negative for injury, rash, and discoloration, Neuro: Negative for headache, weakness, numbness, tingling, and seizure, Psych: Negative for depression, anxiety, suicide ideation, homicidal ideation, and hallucinations, Allergy/Immunology: Negative for hives, rash, and allergies, Endocrine: Negative for neck swelling, polydipsia, polyuria, polyphagia, and marked weight changes, Hematologic/Lymphatic: Negative for swollen nodes, abnormal bleeding, and unusual bruising, 14:44 All other systems are negative, Exam: 14:44 Constitutional: This is a well developed, well nourished patient who is awake, alert, sp3 and in no acute distress. Head/Face: Normocephalic, atraumatic. Eyes: Pupils equal round and reactive to light, extra-ocular motions intact. Lids and lashes normal. Conjunctiva and sclera are non-icteric and not injected. Cornea within normal limits. Periorbital areas with no swelling, redness, or edema. Neck: Trachea midline, no thyromegaly or masses palpated, and no cervical lymphadenopathy. Supple, full range of motion without nuchal rigidity, or vertebral point tenderness. No Meningismus. Chest/axilla: Normal chest wall appearance and motion. Nontender with no deformity. No lesions are appreciated. Cardiovascular: Regular rate and rhythm with a normal S1 and S2. No gallops, murmurs, or rubs. Normal PMI, no JVD. No pulse deficits. Respiratory: Lungs have equal breath sounds bilaterally, clear to auscultation and percussion. No rales, rhonchi or wheezes noted. No increased work of breathing, no retractions or nasal flaring. Back: No spinal tenderness. No costovertebral tenderness. Full range of motion. Skin: Warm, dry with normal turgor. Normal color with no rashes, no lesions, and no evidence of cellulitis. MS/ Extremity: Pulses equal, no cyanosis. Neurovascular intact. Full, normal range of motion. Neuro: Awake and alert, GCS 15, oriented to person, place, time, and situation. Cranial nerves II-XII grossly intact. Motor strength 5/5 in all extremities. Sensory grossly intact. Cerebellar exam normal. Normal gait. Psych: Awake, alert, with orientation to person, place and time. Behavior, mood, and affect are within normal limits. 14:44 Abdomen/GI: Mild diffuse abdominal pain without peritoneal signs, rebound or guarding mild in nature. Patient not having active emesis in the ED., Vital Signs: 13:51 Pulse 72; Resp 20; Temp 97; Pulse Ox 100% ; Weight 81.65 kg; Height 5 ft. 5 in. ; Pain ar8 9/10; 13:54 BP 135 / 89; ar8 15:14 BP 139 / 90; Pulse 71; Resp 18; Pulse Ox 100% on R/A; hb 16:30 BP 146 / 89; Pulse 70; Resp 16; Pulse Ox 100% on R/A; dd2 17:00 BP 153 / 82; Pulse 73; Resp 16; Pulse Ox 100% on R/A; dd2 13:51 Body Mass Index 29.95 (81.65 kg, 165.1 cm) ar8 13:51 Pain Scale: Adult ar8 MDM: 14:03 Medical Screening Exam initiated sp3 14:45 Data reviewed: vital signs, nurses notes, old medical records, lab test result(s). ED sp3 course: 49-year-old female with abdominal pain and vomiting. Differential diagnosis includes chronic abdominal pain and gastroparesis, other abdominal pathology, biliary pathology, pancreatitis, among others. Workup will include general labs, IV fluids antiemetics and GI cocktail. Vital signs are normal. Patient is not in any acute distress or actively having emesis. Probable discharge home once workup is complete.. 10/01 14:28 Order name: CBC with Diff; Complete Time: 15:44 sp3 10/01 14:28 Order name: CMP; Complete Time: 15:44 sp3 10/01 14:28 Order name: Lipase; Complete Time: 15:44 sp3 10/01 14:28 Order name: IV Saline Lock; Complete Time: 14:42 sp3 10/01 14:28 Order name: Labs collected and sent; Complete Time: 14:42 sp3 Administered Medications: 15:13 Drug: Famotidine IVP 20 mg IVP once; dilute with 10 mL 0.9% NaCl; give over 2 minutes hb Route: IVP; Site: left antecubital; 15:13 Drug: Ondansetron IVP 4 mg IVP once; over 2 minutes Route: IVP; Site: left antecubital; hb 15:13 Drug: NS 0.9% IV 1000 ml IV at 1 bolus Per protocol; to be given as a bolus over 60 hb minutes Route: IV; Rate: 1 bolus; Site: left antecubital; 15:13 Drug: GI Cocktail without - (Maalox PO 30 ml, Lidocaine Mucous Membrane 2 % 15 hb ml) PO once Route: PO; Disposition Summary: 10/01/24 16:43 Discharge Ordered Notes: Location: Home sp3 Condition: Stable sp3 Diagnosis - Gastroparesis, chronic abdominal pain sp3 Followup: sp3 - With: Private Physician - When: Upon discharge from the Emergency Department - Reason: Continuance of care Discharge Instructions: - Discharge Summary Sheet sp3 - Gastroparesis sp3 Forms: - Medication Reconciliation Form sp3 - Antibiotic Education sp3 - Prescription Opioid Use sp3 - Patient Portal Instructions sp3 - Leadership Thank You Letter sp3 Prescriptions: - ondansetron 4 mg Oral Tablet,disintegrating - take 1 tablet ORAL route every 12 hours as needed for nausea and vomiting; 20 sp3 tablet; Refills: 0, Product Selection Permitted - dicyclomine 10 mg Oral capsule - take 1 capsule ORAL route 4 times per day As needed pain; 20 capsule; Refills: sp3 0, Product Selection Permitted Signatures: Dispatcher [employer] EDKathy Yepez RN RN Jose Bianchi MD MD sp3 Evan Quigley RN RN ar8
[2024-10-01 23:51] VITALS: TEMP 97; O2SAT 100
[2024-10-01 23:57] VITALS: BP 153/82
== END 2024-10-01 17:11 | disposition home or self-care (01) ==
LOC: ER 13:15
DX: K31.84 Gastroparesis (principal)
CPT/HCPCS: 85025; 36415; 83690; 80053; 96375; 96374; 99284; J2405; J7030